=== PATIENT | female | born 1965 | race Caucasian/White ===

== ENCOUNTER 2021-01-16 14:18 | Outpatient (REF) | payer OTHER, SELFPAY ==
--- NOTE | ~2021-01-16 | XR_ITS ---
EXAMINATION: XR HIP, LEFT CLINICAL INFORMATION: Pain. COMPARISON: None TECHNIQUE: Two views of the left hip. FINDINGS: Bone alignment is normal. No fracture or dislocation is seen. The joint space is normal. There is proliferative bone reaction adjacent to the left greater trochanter and iliac crest. Soft tissues are otherwise unremarkable. XR/XR hip LT min 2V IMPRESSION: Enthesopathy adjacent to the left greater trochanter and iliac crest. Otherwise unremarkable exam.
[2021-01-16 16:21] LABS: Appearance Urine CLEAR; Color Urine YELLOW; Glucose Urine UA NEG (NEG); Leukocyte Esterase Urine NEG (NEG); Nitrite Urine NEG (NEG); Urine Blood NEG (NEG); Urine Ketones NEG (NEG); Urine Protein NEG (NEG-TRACE)
[2021-01-16 16:43] LABS: Alanine Aminotransferase 19 U/L (0-31); Albumin Level 4.3 g/dL (3.5-5.0); Alkaline Phosphatase 78 U/L (39-117); Anion Gap 15 (12-20); Aspartate Amino Transferase 22 U/L (5-31); Bilirubin Total 0.2 mg/dL (0.0-1.0); Blood Urea Nitrogen 15 mg/dL (9-16); Calcium 9.4 mg/dL (8.4-10.2); Carbon Dioxide 27 mmol/L (22-29); Chloride 105 mmol/L (96-108); Cholesterol 250 mg/dL; Estimated Glomerular Filt Rate > 60; Glucose Fasting 81 mg/dL (60-99); HDL Cholesterol 54 mg/dL; LDL Cholesterol Calculated 174 mg/dl; Potassium 4.7 mmol/L (3.3-5.1); Sodium 142 mmol/L (135-145); Total Protein 6.8 g/dL (6.5-8.0); Triglycerides 110 mg/dL
== END 2021-01-16 14:19 | disposition home or self-care (01) ==
LOC: HO.HMGCX 14:18
PROVIDERS: PCP Internal Medicine; Visit Provider Nurse Practitioner Family
DX: M25.552 Pain in left hip (principal); F41.8 Other specified anxiety disorders
CPT/HCPCS: 36415; 73502; 80053; 80061; 81003; 84443

== ENCOUNTER 2022-03-20 14:17 | Outpatient (REF) | payer OTHER, SELFPAY ==
--- NOTE | ~2022-03-20 | XR_ITS ---
EXAMINATION: XR BILATERAL HIPS WITH AP PELVIS CLINICAL INFORMATION: Pain. COMPARISON: None TECHNIQUE: AP view of the pelvis and single views of each hip were obtained. FINDINGS: The bones and soft tissues are normal. No fracture. Sacroiliac and hip joints are normal. Pubic symphysis is normal. No abnormal soft tissue calcifications. XR/XR hips CHON min 3V IMPRESSION: Normal pelvis and bilateral hips.
[2022-03-20 16:51] LABS: Appearance Urine Clear; Color Urine Yellow; Glucose Urine UA Negative (Negative); Leukocyte Esterase Urine Negative (Negative); Nitrite Urine Negative (Negative); PH 5.5 (5.0-9.0); Urine Blood Negative (Negative); Urine Ketones Negative (Negative); Urine Protein Negative (Neg-Trace)
[2022-03-20 16:51] LABS: MANUAL DIFF FLAG NO
[2022-03-20 16:57] LABS: Basophils Absolute Auto 0.1 X10*3/uL (0.0-0.2); Basophils Percent Auto 0.5 % (0-2); Eosinophils Absolute Auto 0.5 X10*3/uL (0.0-0.4); Eosinophils Percent Auto 3.9 % (0-4); Hematocrit 45.8 % (37.0-47.0); Hemoglobin 14.9 g/dl (12.0-16.0); Imm Gran Abs Auto 0.24 X10*3/uL (0.00-0.03); Imm Gran Pct Auto 1.9 % (0.0-0.4); Lymphocytes Percent Auto 30.7 % (20-40); Mean Corpuscular HGB Conc 32.5 g/dl (31.0-35.0); Mean Corpuscular Hemoglobin 31.1 pg (27.0-33.0); Mean Corpuscular Volume 95.6 fL (80.0-98.0); Mean Platelet Volume 9.1 fL (9.4-12.3); Monocytes Absolute Auto 0.9 X10*3/uL (0.1-1.2); Monocytes Percent Auto 7.3 % (2-11); Neutrophils Absolute Auto 7.2 x10*3/uL (2.0-8.3); Neutrophils Percent Auto 55.7 % (45-73); Platelet Count 349 X10*3/uL (160-400); Red Blood Count 4.79 X10*6/uL (4.20-5.50); Red Cell Distribution Width 13.8 % (11.0-16.0)
[2022-03-20 18:06] LABS: Alanine Aminotransferase 22 U/L (0-31); Alkaline Phosphatase 66 U/L (39-117); Anion Gap 11 (12-20); Aspartate Amino Transferase 18 U/L (5-31); Bilirubin Total 0.3 mg/dL (0.0-1.0); Blood Urea Nitrogen 8 mg/dL (9-16); Calcium 8.9 mg/dL (8.4-10.2); Carbon Dioxide 34 mmol/L (22-29); Chloride 97 mmol/L (96-108); Estimated Glomerular Filt Rate > 60; Glucose Random 81 mg/dL (60-115); Potassium 4.5 mmol/L (3.3-5.1); Sodium 137 mmol/L (135-145); Total Protein 5.9 g/dL (6.5-8.0)
== END 2022-03-20 14:18 | disposition home or self-care (01) ==
LOC: HO.HMGCX 14:17
PROVIDERS: PCP Nurse Practitioner Family; Visit Provider Nurse Practitioner Family
DX: R32 Unspecified urinary incontinence (principal); M25.551 Pain in right hip; M25.552 Pain in left hip
CPT/HCPCS: 36415; 73522; 80053; 81003; 84443; 85025

== ENCOUNTER 2022-04-02 10:00 | Outpatient (RCR) | payer OTHER, SELFPAY ==
--- NOTE | 2022-03-23 13:12 | MHC.PT.EP ---
[facility] [place] Office [place] Office [place] Office [address] [phone] F: [phone] F: [phone] F: [phone] F: [phone] Physical Therapy Plan of Care Date of Evaluation: Date of Surgery: none Diagnosis: Pain in L hip Assessment: Patient is a 56 year old R handed female who presents with s/s consistent with pain. 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 Patient past medical history is fairly unremarkable by pt report. Current impairments include pain, posture, ROM, strength, flexibility, gait mechanics, activity tolerance and functional mobility. Functional limitations include decreased ability to stand, walk, lift, push and pull. Patient is motivated with good rehab potential. Skilled PT will address impairments and functional limitations in order to achieve goals. Frequency and Duration: The patient will be seen 2x/week for 5 weeks Short Term Goals: I with HEP - 2 weeks symmetrical innom - 3 weeks 90/90 symmetrical and less than 20 b/l - 3 weeks Guest Relations Representative Goals: Lefs 54/80 - 5 weeks Able to work full shift without increased pain - 5 weeks Symmetrical gait - 5 weeks Hip strength and knee strength 4/5 grossly - 5 weeks Maintains symmetrical innom - 5 weeks Treatment Plan: Modalities to reduce pain, spasms and effusion. Manual therapy to restore motion and function. Therapeutic exercise to improve strength and flexibility. Neuromuscular re-education for posture and balance. Therapeutic activities to return to functional activities of daily living. Electronically signed by: Rodriguez Pacheco, PT Please sign and return to therapist. Thank you for your referral.
--- NOTE | 2022-06-19 08:33 | MHC.PT.DC ---
[facility] [place] [facility] [place] [facility] [place] [facility] [address] Bella [place] [address] [phone] F: [phone] F: [phone] F: [phone] F: [phone] Physical Therapy Discharge Report Diagnosis: Pain in L hip Date of Surgery: none Date of Evaluation: 03/23/22 Date of Discharge: 05/10/22 Treatments to Date: 4 Cancellations to Date: No Shows to Date: Discharge Status: Independent with HEP Discharge Summary: She does have an updated PT and she elected on hold on further PT at this time. 04/02/22: improved activity tolerance and less pain. continue to progress as tolerated. updated HEP. 03/30/22: pt has been feeling better the last few days. held on table ex today. we will contineu to progress with stretching and standing activities. 03/26/22: pt with lower positional and activity tolerance. we did add to HEP ex in seated position which she tolerated best. we did edu on symmetry and asymmetrical habits. Patient is a 56 year old R handed female who presents with s/s consistent with pain. 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 Patient past medical history is fairly unremarkable by pt report. Current impairments include pain, posture, ROM, strength, flexibility, gait mechanics, activity tolerance and functional mobility. Functional limitations include decreased ability to stand, walk, lift, push and pull. Patient is motivated with good rehab potential. Skilled PT will address impairments and functional limitations in order to achieve goals. Electronically signed by: Rodriguez Pacheco, PT Please sign and return to therapist. Thank you for your referral.
== END 2022-06-19 08:34 | disposition home or self-care (01) ==
LOC: HO.PTCHIC 10:00
PROVIDERS: PCP Nurse Practitioner Family; Visit Provider Nurse Practitioner Family
DX: M25.552 Pain in left hip (principal)
CPT/HCPCS: 97110; 97140; 97162

== ENCOUNTER 2022-04-11 22:33 | Inpatient (IN) | payer OTHER, SELFPAY ==
--- NOTE | ~2022-04-11 | XR_ITS ---
EXAMINATION: XR CHEST CLINICAL INFORMATION: Weakness and cough. Shortness of breath. COMPARISON: CT chest 05/27/2016 TECHNIQUE: Frontal view of the chest was obtained. 11:39 PM FINDINGS: No significant abnormality is noted involving the heart, lungs, mediastinum, bony thorax or soft tissues. XR/XR chest 1V IMPRESSION: Unremarkable examination.
[2022-04-11 22:44] VITALS: BP 119/67; BP 128/72; PULSE 101; PULSE 99; RESP 22; TEMP 37.3; O2SAT 92; O2SAT 94; BMI 34.9
--- NOTE | 2022-04-11 22:50 | ED.GENADULT ---
HPI - General Adult General Chief complaint: General Medical Stated complaint: weakness/sob Time Seen by Provider: 04/11/22 22:42 Source: patient and EMS Mode of arrival: EMS Limitations: no limitations History of Present Illness HPI narrative: 56-year-old female who presents emergency department for evaluation of feeling sick for 2 days. Patient has multiple complaints including headache which came on gradually, located throughout her entire head, pain is a pressure-like pain which is 8/10 at its worst patient had no fever but did have shaking chills. She has had rhinorrhea sore throat. She has had a cough which is nonproductive. She denied chest pain but feels short of breath and has dyspnea on exertion she has nausea with no vomiting. She denied diarrhea. She complains of weakness, fatigue, myalgias and arthralgias. EMS was an independent source of history. Paramedics report that the patient appeared to be short of breath with a respiratory rate of 22 and an O2 saturation of 90% on room air. Paramedics gave the patient a DuoNeb EN route to the hospital. External notes review: Primary care visit 02/11/2022 and 03/11/2022: Patient has chronic back pain , left hip pain and left leg pain. Patient is on Suboxone daily and gabapentin. Patient states she received 2 Moderna COVID-19 vaccines. She did not receive a flu vaccine. She took a COVID-19 home test which was negative. Related Data Home Medications Medication Instructions Recorded Confirmed buprenorphine 4 mg-naloxone 1 mg 1 film sublingual DAILY 10/30/20 04/12/22 sublingual film (Suboxone) buprenorphine 2 mg-naloxone 0.5 mg 1 strip sublingual DAILY 04/12/22 04/12/22 sublingual film ibuprofen 200 mg tablet 400 mg PO Q8H PRN hip and leg pain 04/12/22 04/12/22 Previous Rx's Medication Instructions Recorded venlafaxine 150 mg 150 mg PO BID #60 caps 01/26/22 capsule,extended release 24 hr gabapentin 300 mg capsule 600 mg PO TID 30 days #180 caps 02/11/22 clonidine HCl 0.1 mg tablet 0.1 mg PO BID #60 tabs 03/30/22 Allergies Allergy/AdvReac Type Severity Reaction Status Date / Time omeprazole [From PRILOSEC] Allergy Severe ANAPHYLAXIS Verified 03/11/22 10:12 lansoprazole [Prevacid] Allergy Unknown anaphylaxis Verified 03/11/22 10:12 Review of Systems Review of Systems: Yes all other systems are reviewed and are negative [facility] Past Medical History [facility] Narrative: Past medical history: Chronic back pain, left hip pain and left lower extremity pain. Social history: She smokes 1-1/2 pack of cigarettes per day times 20 years. She denies alcohol use. She denies drug use. Medical History Anxiety associated with depression Bilateral hip pain Dyslipidemia Left hip pain Lower back pain Somatic dysfunction of left sacroiliac joint Urinary incontinence Social History Social History Household Members: Spouse and Friend(s) Housing: House Do you presently have visiting nurse or other home services: No Alcohol intake: current Alcohol intake frequency: holidays/special occasions only Patient Tobacco Use Status: Current everyday Tobacco user Tobacco use type: Cigarette Cigarette Packs Per Day: 1 Cigarettes Per Day: 20.0 Smoked in Last 30 Days: Yes e-Cigarette/Vaping Use: Never Used Patient Interested in Nicotine Replacement: No Second Hand Smoke Exposure: No Use of substances other than those prescribed or required for medical reasons: Yes Substance Use Type: Heroin Have you been hit, kicked, punched, or otherwise hurt by someone within the past year? If so, by whom?: No Do you feel safe in your current relationship?: No Is there a partner from a previous relationship who is making you feel unsafe now?: No Advance Directives: No Advance Directives Information Provided: No Do you have thoughts of harming others: None Do you have a plan to hurt others: No Plan Recently lost weight without trying: No Nutrition Risks: No Nutritional Risk Patient : No : No Poor oral hygiene: No service: No Current occupational status: employed Current occupation: [employer] Cognitive needs: No Hearing needs: No Vision needs: No Physical Exam ED Vital Signs: Vital Signs - 24 hr 04/11/22 22:44 04/12/22 01:20 04/12/22 02:28 Temperature 99.2 F 99.7 F 99.1 F Pulse Rate 101 H 101 H 99 Respiratory Rate 22 H 12 12 Blood Pressure 119/67 108/66 121/69 Pulse Oximetry 94 95 97 Oxygen Delivery Method Room Air Nasal Cannula Nasal Cannula Oxygen Flow Rate 2 2 04/12/22 03:01 04/12/22 04:34 04/12/22 05:41 Temperature 99.1 F 99.1 F 98.0 F Pulse Rate 93 96 94 Respiratory Rate 12 15 18 Blood Pressure 101/59 L 125/81 Pulse Oximetry 96 96 95 Oxygen Delivery Method Nasal Cannula with ETCO2 Nasal Cannula Nasal Cannula with ETCO2 Oxygen Flow Rate 2 2 2 04/12/22 06:02 04/12/22 06:05 04/12/22 06:12 Temperature Pulse Rate Respiratory Rate Blood Pressure Pulse Oximetry 89 L 95 98 Oxygen Delivery Method Room Air Nasal Cannula with ETCO2 Nasal Cannula Oxygen Flow Rate 2 2 04/12/22 08:25 04/12/22 11:28 Temperature 98.1 F 98.0 F Pulse Rate 90 85 Respiratory Rate 18 16 Blood Pressure 137/80 121/76 Pulse Oximetry 96 97 Oxygen Delivery Method Nasal Cannula Nasal Cannula Oxygen Flow Rate 2 2 BMI result Body Mass Index 34.9 Reviewed: Low grade oral temperature 99.2 degrees, elevated heart rate 101, elevated respiratory rate 22. normal O2 saturation on room air 94% Const Other: Patient appears weak, she answers questions appropriately, she does not appear to be in distress Orientation/consciousness: oriented to person and oriented to place [facility] Head: Yes normal to inspection, Yes normocephalic and Yes atraumatic Ears: external ears normal General nose exam: Normal external nose present Face and sinus: Yes normal facial exam Mouth: Normal oral and palatal mucosa present Throat: Yes posterior oropharynx normal Eyes General: appearance normal, both eyes and all related structures Pupils: Equal, round and reactive pupils present Neck Neck: Yes normal visual inspection, Yes no lymphadenopathy, Yes trachea midline and Yes supple Chest Chest palpation & inspection: normal inspection of the chest and normal palpation of entire chest wall Resp Effort & Inspection: normal respiratory effort and able to speak in complete sentences Auscultation: clear to auscultation bilaterally Cardio Rate: regular rate Rhythm: regular rhythm Heart sounds: S1 normal heart sound present, S2 normal heart sound present and no murmurs GI Inspection: Yes normal to inspection Palpation (GI): Soft to palpation, nontender and no guarding Auscultation: normal bowel sounds General: Yes no CVA tenderness Back/Spine/Pelvis Back: no CVA tenderness Skin General skin exam: no rashes or lesions noted Neuro General: oriented to person and oriented to place Cranial nerves: Yes CN's II-XII intact bilaterally and Yes Equal, round and reactive pupils present Cognition (Neuro): normal cognition Motor exam (neuro): 5/5 motor strength present throughout Extrem General: Yes normal to inspection Psych Appearance: grossly normal Mental Status: mental status grossly normal Speech and movement: Normal speech and movement present Affect: normal affect Medications Administered Generic Name Dose Route Start Last Admin Trade Name Freq PRN Reason Stop Dose Admin Acetaminophen 650 mg 04/12/22 03:58 04/12/22 22:27 Acetaminophen 325 Mg Tablet PO 650 mg Q6H PRN Administration Pain, Mild (Pain Scale 1-3) Albuterol/Ipratropium 3 ml 04/12/22 21:17 04/12/22 21:46 Albuterol/Iprat 2.5/0.5mg 3 Ml Ampul.Neb INHALE 3 ml Q4H PRN Administration Shortness of Breath/Wheezing Buprenorphine/Naloxone 1 film 04/12/22 10:57 04/12/22 11:28 Buprenorphine/Naloxone 2/0.5mg Film SUBLINGUAL 1 film DAILY PER Administration Buprenorphine/Naloxone 1 film 04/12/22 11:00 04/12/22 11:28 Buprenorphine/Naloxone 4/1 Mg Film SUBLINGUAL 1 film DAILY PER Administration Clonidine HCl 0.1 mg 04/12/22 21:00 04/12/22 20:33 Clonidine Hcl 0.1 Mg Tablet PO 0.1 mg BID PER Administration Protocol Enoxaparin Sodium 40 mg 04/12/22 06:00 04/12/22 05:45 Enoxaparin Sodium 40 Mg/0.4 Ml Syringe SUBCUT 40 mg Q24H PER Administration Gabapentin 600 mg 04/12/22 15:00 04/12/22 20:33 Gabapentin 300 Mg Capsule PO 600 mg TID PER Administration Guaifenesin 600 mg 04/12/22 21:17 04/12/22 21:49 Guaifenesin La 600 Mg Tab.Er.12h PO 600 mg BID PRN Administration cough Lactated Ringer's 1,000 mls @ 100 mls/hr 04/12/22 04:15 04/12/22 20:40 Lr IVCONT Infused .Q10H PER Infusion Metoprolol Succinate 25 mg 04/12/22 11:50 04/12/22 12:05 Metoprolol Succinate Er 25 Mg Tab.Er.24h PO 25 mg DAILY PER Administration Protocol Oseltamivir Phosphate 75 mg 04/12/22 06:00 04/12/22 20:33 Oseltamivir Phosphate 75 Mg Capsule PO 04/16/22 09:01 75 mg BID PER Administration Sodium Chloride 3 ml 04/12/22 08:00 04/12/22 20:37 0.9 % Sodium Chloride Flush 3 Ml Syringe IVFLUSH 3 ml QSHIFT PER Administration Venlafaxine HCl 150 mg 04/12/22 21:00 04/12/22 20:33 Venlafaxine Hcl Er 150 Mg Cap.Er.24h PO 150 mg BID PER Administration Discontinued Medications Generic Name Dose Route Start Last Admin Trade Name Freq PRN Reason Stop Dose Admin Sodium Chloride 1,000 mls @ 999 mls/hr 04/11/22 23:00 04/11/22 23:55 Ns IV 04/12/22 00:00 Infused .Q1H1M PER Infusion Sodium Chloride 1,000 mls @ 999 mls/hr 04/11/22 22:50 04/11/22 23:44 Ns IV 04/11/22 23:50 Not Given .Q1H1M STA Lactated Ringer's 1,000 mls @ 999 mls/hr 04/12/22 02:30 04/12/22 03:37 Lr IV 04/12/22 03:30 Infused .Q1H1M PER Infusion Ibuprofen 600 mg 04/12/22 03:22 04/12/22 03:46 Ibuprofen 600 Mg Tablet PO 04/12/22 03:23 600 mg ONCE STA Administration Ibuprofen 400 mg 04/12/22 09:12 04/12/22 09:18 Ibuprofen 400 Mg Tablet PO 04/12/22 09:13 400 mg ONCE ONE Administration Influenza Virus Vaccine 0.5 ml 04/12/22 18:19 04/12/22 18:21 Flu Vacc [id number](6mos Up)/Pf 0.5 Ml Syringe IM 04/12/22 18:20 Not Given .ONCE ONE Ketorolac Tromethamine 15 mg 04/11/22 22:50 04/11/22 23:44 Ketorolac Tromethamine 15 Mg/Ml Vial IVPUSH 04/11/22 22:51 15 mg ONCE STA Administration Ondansetron HCl 4 mg 04/11/22 22:50 04/11/22 23:44 Ondansetron Hcl 4 Mg/2 Ml Vial IVPUSH 04/11/22 22:51 4 mg ONCE ONE Administration Ondansetron HCl 4 mg 04/12/22 03:22 04/12/22 03:46 Ondansetron Hcl 4 Mg/2 Ml Vial IVPUSH 04/12/22 03:23 4 mg ONCE ONE Administration Medical Decision Making Medical Decision Making [facility] Narrative: 56-year-old female with history of chronic back pain headache, left hip and left leg pain presents emergency department for 2 days of viral-like syndrome with symptoms including headache, chills, rhinorrhea, sore throat, nonproductive cough, shortness of breath, dyspnea on exertion, nausea without vomiting, weakness, fatigue, myalgias and arthralgias. Vital signs did reveal elevated heart rate of 101, elevated respiratory rate of 22, no documented fever and normal O2 saturation of 94% on room air. Patient does appear to be weak but otherwise her exam is nonfocal, lungs were clear. I ordered a CBC, CMP, troponin, PTT, PT/INR, lactic acid, lipase, blood cultures x2. COVID-19, flu, RSV, chest x-ray. I ordered normal saline x1 L, Toradol 30 mg IV and Zofran 4 mg IV. 0041: Patient's laboratory evaluation is concerning since the patient is influenza A positive, mild elevation of her AST, ALT and alk-phos, significant elevation of her high sensitive troponin I of 308 and chest x-ray revealed no pneumonia. Concerned the patient may have acute myocardial infarction verses myositis/myocarditis/pericarditis. I added a CPK, CRP and ESR. I will repeat a 3 hour troponin and discuss these findings with our covering telephoto engineer. 0315: Patient's repeat troponin did not increased by more than 50%. I did discuss this patient's presentation over tiger text with the covering telephoto engineer, Dr. Mcgovern. He suspects that the patient's elevated troponins could be secondary to myocarditis or general inflammatory reaction. He recommended that the patient be admitted for supportive care, he recommended against heparin an aspirin. He would like the patient to get an echocardiogram in the morning. I did discuss over tiger text, the patient's presentation with the covering copy chief, Dr. Johnston Differential Diagnosis Pneumonia, COVID-19, influenza, RSV, viral syndrome, anemia, NH, dehydration, myocarditis, pericarditis Lab Data MDM Lab Attestation statement: I reviewed the patient's lab results. 0036: My independent interpretation of the labs are as follows: CBC was normal. PT/INR were normal. PTT normal. AST, ALT and alk-phos were elevated at 66, 118 and 149. High sensitivity troponin I was elevated at 308. Influenza a is positive. RSV and COVID-19 were negative. 0315: Patient's repeat troponin was 452 which was less than a 50% change from the 1st troponin. ESR was normal at 16. CRP elevated 20.26. Result Diagrams: 04/11/22 23:34 04/12/22 04:40 Labs: Lab Results 04/11/22 04/11/22 04/11/22 Range/Units 23:34 23:34 23:34 WBC 10.0 (4.8-10.8) X10*3/uL RBC 4.71 (4.20-5.50) X10*6/uL Hgb 14.6 (12.0-16.0) g/dl Hct 43.7 (37.0-47.0) % MCV 92.8 (80.0-98.0) fL MCH 31.0 (27.0-33.0) pg MCHC 33.4 (31.0-35.0) g/dl RDW 14.1 (11.0-16.0) % Plt Count 188 D (160-400) X10*3/uL MPV 9.1 L (9.4-12.3) fL Immature Gran % (Auto) 0.4 (0.0-0.4) % Neut % (Auto) 85.4 H (45-73) % Lymph % (Auto) 6.2 L (20-40) % [place] % (Auto) 7.6 (2-11) % Eos % (Auto) 0.2 (0-4) % Baso % (Auto) 0.2 (0-2) % Lymph # (Auto) 0.6 L (1.2-4.9) X10*3/uL [place] # (Auto) 0.8 (0.1-1.2) X10*3/uL Eos # (Auto) 0.0 (0.0-0.4) X10*3/uL Baso # (Auto) 0.0 (0.0-0.2) X10*3/uL Abs Immat Gran (auto) 0.04 H (0.00-0.03) X10*3/uL Absolute Neuts (auto) 8.5 H (2.0-8.3) x10*3/uL Absolute Nucleated RBC 0.000 (0.0-0.012) X10*3/uL Nucleated RBC % (auto) 0.0 (0.0-0.2) /100WBC ESR (0-20) MM/HR PT 11.8 (10.0-13.1) SEC INR 1.0 (0.9-1.1) APTT 35.6 (26.0-36.4) SEC Sodium 138 (135-145) mmol/L Potassium 3.9 (3.3-5.1) mmol/L Chloride 101 (96-108) mmol/L Carbon Dioxide 26 (22-29) mmol/L Anion Gap 15 (12-20) BUN 12 (9-16) mg/dL Creatinine 0.54 (0.5-1.4) mg/dL Estim Creat Clear Calc 147.0 Estimated GFR > 60 Random Glucose 68 (60-115) mg/dL Lactic Acid (0.5-2.0) mmol/L Calcium 8.2 L D (8.4-10.2) mg/dL Total Bilirubin 0.7 (0.0-1.0) mg/dL AST 66 H (5-31) U/L ALT 118 H (0-31) U/L Alkaline Phosphatase 149 H D (39-117) U/L Total Creatine Kinase 142 H (26-140) U/L Troponin I High Sens (<3.5-17.0) ng/L C-Reactive Protein 20.26 H (< or = 0.50) mg/dL Total Protein 5.3 L D (6.5-8.0) g/dL Albumin 3.4 L D (3.5-5.0) g/dL Lipase < 4 L (8-78) U/L Urine Color Urine Appearance Urine pH (5.0-9.0) Ur Specific [place] (1.005-1.025) Urine Protein (Neg-Trace) mg/dL Urine Glucose (UA) (Negative) mg/dL Urine Ketones (Negative) mg/dL Urine Blood (Negative) Urine Nitrite (Negative) Ur Leukocyte Esterase (Negative) Influenza Type A (PCR) (Negative) Influenza Type B (PCR) (Negative) RSV RNA Qual (PCR) (Negative) SARS-CoV-2 RNA (RT-PCR) (Negative) 04/11/22 04/11/22 04/11/22 Range/Units 23:34 23:34 23:34 WBC (4.8-10.8) X10*3/uL RBC (4.20-5.50) X10*6/uL Hgb (12.0-16.0) g/dl Hct (37.0-47.0) % MCV (80.0-98.0) fL MCH (27.0-33.0) pg MCHC (31.0-35.0) g/dl RDW (11.0-16.0) % Plt Count (160-400) X10*3/uL MPV (9.4-12.3) fL Immature Gran % (Auto) (0.0-0.4) % Neut % (Auto) (45-73) % Lymph % (Auto) (20-40) % [place] % (Auto) (2-11) % Eos % (Auto) (0-4) % Baso % (Auto) (0-2) % Lymph # (Auto) (1.2-4.9) X10*3/uL [place] # (Auto) (0.1-1.2) X10*3/uL Eos # (Auto) (0.0-0.4) X10*3/uL Baso # (Auto) (0.0-0.2) X10*3/uL Abs Immat Gran (auto) (0.00-0.03) X10*3/uL Absolute Neuts (auto) (2.0-8.3) x10*3/uL Absolute Nucleated RBC (0.0-0.012) X10*3/uL Nucleated RBC % (auto) (0.0-0.2) /100WBC ESR (0-20) MM/HR PT (10.0-13.1) SEC INR (0.9-1.1) APTT (26.0-36.4) SEC Sodium (135-145) mmol/L Potassium (3.3-5.1) mmol/L Chloride (96-108) mmol/L Carbon Dioxide (22-29) mmol/L Anion Gap (12-20) BUN (9-16) mg/dL Creatinine (0.5-1.4) mg/dL Estim Creat Clear Calc Estimated GFR Random Glucose (60-115) mg/dL Lactic Acid 0.8 (0.5-2.0) mmol/L Calcium (8.4-10.2) mg/dL Total Bilirubin (0.0-1.0) mg/dL AST (5-31) U/L ALT (0-31) U/L Alkaline Phosphatase (39-117) U/L Total Creatine Kinase (26-140) U/L Troponin I High Sens 308.0 H* (<3.5-17.0) ng/L C-Reactive Protein (< or = 0.50) mg/dL Total Protein (6.5-8.0) g/dL Albumin (3.5-5.0) g/dL Lipase (8-78) U/L Urine Color Urine Appearance Urine pH (5.0-9.0) Ur Specific [place] (1.005-1.025) Urine Protein (Neg-Trace) mg/dL Urine Glucose (UA) (Negative) mg/dL Urine Ketones (Negative) mg/dL Urine Blood (Negative) Urine Nitrite (Negative) Ur Leukocyte Esterase (Negative) Influenza Type A (PCR) POSITIVE A (Negative) Influenza Type B (PCR) NEGATIVE (Negative) RSV RNA Qual (PCR) NEGATIVE (Negative) SARS-CoV-2 RNA (RT-PCR) NEGATIVE (Negative) 04/11/22 04/12/22 04/12/22 Range/Units 23:34 02:27 04:40 WBC (4.8-10.8) X10*3/uL RBC (4.20-5.50) X10*6/uL Hgb (12.0-16.0) g/dl Hct (37.0-47.0) % MCV (80.0-98.0) fL MCH (27.0-33.0) pg MCHC (31.0-35.0) g/dl RDW (11.0-16.0) % Plt Count (160-400) X10*3/uL MPV (9.4-12.3) fL Immature Gran % (Auto) (0.0-0.4) % Neut % (Auto) (45-73) % Lymph % (Auto) (20-40) % [place] % (Auto) (2-11) % Eos % (Auto) (0-4) % Baso % (Auto) (0-2) % Lymph # (Auto) (1.2-4.9) X10*3/uL [place] # (Auto) (0.1-1.2) X10*3/uL Eos # (Auto) (0.0-0.4) X10*3/uL Baso # (Auto) (0.0-0.2) X10*3/uL Abs Immat Gran (auto) (0.00-0.03) X10*3/uL Absolute Neuts (auto) (2.0-8.3) x10*3/uL Absolute Nucleated RBC (0.0-0.012) X10*3/uL Nucleated RBC % (auto) (0.0-0.2) /100WBC ESR 16 (0-20) MM/HR PT (10.0-13.1) SEC INR (0.9-1.1) APTT (26.0-36.4) SEC Sodium (135-145) mmol/L Potassium (3.3-5.1) mmol/L Chloride (96-108) mmol/L Carbon Dioxide (22-29) mmol/L Anion Gap (12-20) BUN (9-16) mg/dL Creatinine (0.5-1.4) mg/dL Estim Creat Clear Calc Estimated GFR Random Glucose (60-115) mg/dL Lactic Acid (0.5-2.0) mmol/L Calcium (8.4-10.2) mg/dL Total Bilirubin (0.0-1.0) mg/dL AST (5-31) U/L ALT (0-31) U/L Alkaline Phosphatase (39-117) U/L Total Creatine Kinase (26-140) U/L Troponin I High Sens 452.1 H* 430.2 H* (<3.5-17.0) ng/L C-Reactive Protein (< or = 0.50) mg/dL Total Protein (6.5-8.0) g/dL Albumin (3.5-5.0) g/dL Lipase (8-78) U/L Urine Color Urine Appearance Urine pH (5.0-9.0) Ur Specific [place] (1.005-1.025) Urine Protein (Neg-Trace) mg/dL Urine Glucose (UA) (Negative) mg/dL Urine Ketones (Negative) mg/dL Urine Blood (Negative) Urine Nitrite (Negative) Ur Leukocyte Esterase (Negative) Influenza Type A (PCR) (Negative) Influenza Type B (PCR) (Negative) RSV RNA Qual (PCR) (Negative) SARS-CoV-2 RNA (RT-PCR) (Negative) 04/12/22 04/12/22 Range/Units 04:40 08:30 WBC (4.8-10.8) X10*3/uL RBC (4.20-5.50) X10*6/uL Hgb (12.0-16.0) g/dl Hct (37.0-47.0) % MCV (80.0-98.0) fL MCH (27.0-33.0) pg MCHC (31.0-35.0) g/dl RDW (11.0-16.0) % Plt Count (160-400) X10*3/uL MPV (9.4-12.3) fL Immature Gran % (Auto) (0.0-0.4) % Neut % (Auto) (45-73) % Lymph % (Auto) (20-40) % [place] % (Auto) (2-11) % Eos % (Auto) (0-4) % Baso % (Auto) (0-2) % Lymph # (Auto) (1.2-4.9) X10*3/uL [place] # (Auto) (0.1-1.2) X10*3/uL Eos # (Auto) (0.0-0.4) X10*3/uL Baso # (Auto) (0.0-0.2) X10*3/uL Abs Immat Gran (auto) (0.00-0.03) X10*3/uL Absolute Neuts (auto) (2.0-8.3) x10*3/uL Absolute Nucleated RBC (0.0-0.012) X10*3/uL Nucleated RBC % (auto) (0.0-0.2) /100WBC ESR (0-20) MM/HR PT (10.0-13.1) SEC INR (0.9-1.1) APTT (26.0-36.4) SEC Sodium 139 (135-145) mmol/L Potassium 3.5 (3.3-5.1) mmol/L Chloride 106 (96-108) mmol/L Carbon Dioxide 25 (22-29) mmol/L Anion Gap 12 (12-20) BUN 12 (9-16) mg/dL Creatinine 0.48 L (0.5-1.4) mg/dL Estim Creat Clear Calc 165.4 Estimated GFR > 60 Random Glucose 78 (60-115) mg/dL Lactic Acid (0.5-2.0) mmol/L Calcium 7.8 L (8.4-10.2) mg/dL Total Bilirubin 0.4 (0.0-1.0) mg/dL AST 47 H (5-31) U/L ALT 94 H (0-31) U/L Alkaline Phosphatase 131 H (39-117) U/L Total Creatine Kinase (26-140) U/L Troponin I High Sens (<3.5-17.0) ng/L C-Reactive Protein (< or = 0.50) mg/dL Total Protein 4.5 L (6.5-8.0) g/dL Albumin 2.9 L (3.5-5.0) g/dL Lipase (8-78) U/L Urine Color Dark Yellow Urine Appearance Clear Urine pH 5.5 (5.0-9.0) Ur Specific [place] 1.025 (1.005-1.025) Urine Protein Trace (Neg-Trace) mg/dL Urine Glucose (UA) Negative (Negative) mg/dL Urine Ketones 80 (Negative) mg/dL Urine Blood Negative (Negative) Urine Nitrite Negative (Negative) Ur Leukocyte Esterase Negative (Negative) Influenza Type A (PCR) (Negative) Influenza Type B (PCR) (Negative) RSV RNA Qual (PCR) (Negative) SARS-CoV-2 RNA (RT-PCR) (Negative) Radiology Impression Radiologist Impression: My independent review of the chest x-ray is that there was no acute infiltrates. The radiologist impression was unremarkable examination and this was reviewed by me. Independent Historian Clinical information obtained from an independent historian. History obtained from or confirmed by: EMS External Record Review External record reviewed: Office record Critical Care Time Critical Care Time Critical Care Time: Yes Total Critical Care Time: 40 Attestation: Critical Care: The patient was critically ill with a high probability of imminent or life threatening deterioration. I spent greater than 30 minutes of discontinuous time evaluating the patient,delivering critical care at the bedside, discussing and evaluating pertinent data with consultants. Critical care time does not include time spent performing separately billable procedures or teaching. Total time spent performing critical care was 45 minutes. Discharge Plan Discharge Clinical Impression: Influenza A, Elevated troponin I level, Elevated LFTs Patient Disposition: Admitted As Inpatient Interventions: Admission Worksheet (ED) Last Done: 04/12/22 17:47 Discharge Date/Time: 04/12/22 17:48
--- NOTE | 2022-04-11 22:51 | ECG_ITS ---
Test Reason : CHEST PAIN Blood Pressure : / mmHG Vent. Rate : 099 BPM Atrial Rate : 099 BPM P-R Int : 148 ms QRS Dur : 068 ms QT Int : 330 ms P-R-T Axes : 073 060 051 degrees QTc Int : 423 ms Normal sinus rhythm Septal infarct , age undetermined Abnormal ECG When compared with ECG of 09-SEP-2006 16:22, Septal infarct is now Present Nonspecific T wave abnormality now evident in Anterior leads Referred By: Tito Padgett Electronically Signed By:PAOLA TOWNSEND MD
[2022-04-11] MEDS: 0.9 % Sodium Chloride 1,000 ML 999 ML IV (22:52)
[2022-04-11] MEDS: Ketorolac Tromethamine 15 MG/ML VIAL IVPUSH (23:44)
[2022-04-11] MEDS: ondansetron HCL 4 MG/2 ML VIAL IVPUSH (23:44)
[2022-04-11 23:45] LABS: Basophils Percent Auto 0.2 % (0-2); Eosinophils Percent Auto 0.2 % (0-4); Hematocrit 43.7 % (37.0-47.0); Hemoglobin 14.6 g/dl (12.0-16.0); Imm Gran Abs Auto 0.04 X10*3/uL (0.00-0.03); Imm Gran Pct Auto 0.4 % (0.0-0.4); Lymphocytes Absolute Auto 0.6 X10*3/uL (1.2-4.9); Lymphocytes Percent Auto 6.2 % (20-40); Mean Corpuscular HGB Conc 33.4 g/dl (31.0-35.0); Mean Corpuscular Volume 92.8 fL (80.0-98.0); Mean Platelet Volume 9.1 fL (9.4-12.3); Monocytes Absolute Auto 0.8 X10*3/uL (0.1-1.2); Monocytes Percent Auto 7.6 % (2-11); Neutrophils Absolute Auto 8.5 x10*3/uL (2.0-8.3); Neutrophils Percent Auto 85.4 % (45-73); Platelet Count 188 X10*3/uL (160-400); Red Blood Count 4.71 X10*6/uL (4.20-5.50); Red Cell Distribution Width 14.1 % (11.0-16.0)
[2022-04-11 23:46] LABS: MANUAL DIFF FLAG NO
[2022-04-11 23:52] LABS: Prothrombin Time 11.8 SEC (10.0-13.1)
[2022-04-11 23:54] LABS: Partial Thromboplastin Time 35.6 SEC (26.0-36.4)
[2022-04-11 23:57] LABS: Lactic Acid 0.8 mmol/L (0.5-2.0)
[2022-04-12] VITALS (13 sets, daily range): BP systolic 101–137; BP diastolic 59–88; PULSE 75–101; RESP 12–20; TEMP 36.7–37.6; O2SAT 89–98; BMI 34.9
[2022-04-12 00:03] LABS: Alanine Aminotransferase 118 U/L (0-31); Albumin Level 3.4 g/dL (3.5-5.0); Alkaline Phosphatase 149 U/L (39-117); Anion Gap 15 (12-20); Aspartate Amino Transferase 66 U/L (5-31); Bilirubin Total 0.7 mg/dL (0.0-1.0); Blood Urea Nitrogen 12 mg/dL (9-16); Calcium 8.2 mg/dL (8.4-10.2); Carbon Dioxide 26 mmol/L (22-29); Chloride 101 mmol/L (96-108); Estimated Glomerular Filt Rate > 60; Glucose Random 68 mg/dL (60-115); Lipase < 4 U/L (8-78); Potassium 3.9 mmol/L (3.3-5.1); Sodium 138 mmol/L (135-145); Total Protein 5.3 g/dL (6.5-8.0)
[2022-04-12 00:28] LABS: Influenza A PCR POSITIVE (Negative); Influenza B PCR NEGATIVE (Negative); Resp Syncy Virus RNA Qual PCR NEGATIVE (Negative); SARS COV2 PCR INHOUSE NEGATIVE (Negative)
[2022-04-12 00:59] LABS: C Reactive Protein 20.26 mg/dL (< or = 0.50)
[2022-04-12 01:21] LABS: Erythrocyte Sedimentation Rate 16 MM/HR (0-20)
[2022-04-12] MEDS: Lactated Ringers 1,000 ML 999 ML IV (02:34)
[2022-04-12 03:03] LABS: Troponin-I High Sensitivity 452.1 ng/L (<3.5-17.0)
--- NOTE | 2022-04-12 03:03 | PC.NURSE ---
attempted to administer LR 1 liter bolus per Jun. RN noted IV site to LL arm not paten site discontinued. 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 Pt c/o 10/10 L hip burning sciatic pain, nausea and dizziness Temp 99.1 oral will notify Ed provider. pvc monitor NSR at this time.
[2022-04-12] MEDS: ondansetron HCL 4 MG/2 ML VIAL IVPUSH (03:46)
[2022-04-12] MEDS: Ibuprofen 600 MG TABLET PO (03:46)
[2022-04-12 05:11] LABS: Alanine Aminotransferase 94 U/L (0-31); Albumin Level 2.9 g/dL (3.5-5.0); Alkaline Phosphatase 131 U/L (39-117); Anion Gap 12 (12-20); Aspartate Amino Transferase 47 U/L (5-31); Bilirubin Total 0.4 mg/dL (0.0-1.0); Blood Urea Nitrogen 12 mg/dL (9-16); Calcium 7.8 mg/dL (8.4-10.2); Carbon Dioxide 25 mmol/L (22-29); Chloride 106 mmol/L (96-108); Creatinine Clr Calc Pharmacy 165.4; Estimated Glomerular Filt Rate > 60; Glucose Random 78 mg/dL (60-115); Potassium 3.5 mmol/L (3.3-5.1); Sodium 139 mmol/L (135-145); Total Protein 4.5 g/dL (6.5-8.0)
[2022-04-12 05:20] LABS: Troponin-I High Sensitivity 430.2 ng/L (<3.5-17.0)
[2022-04-12] MEDS: Oseltamivir Phosphate 75 MG CAPSULE PO ×3 (05:43→20:33)
[2022-04-12] MEDS: Enoxaparin Sodium 40 MG/0.4 ML SYRINGE SUBCUT (05:45)
[2022-04-12] MEDS: Lactated Ringers 1,000 ML 100 ML IVCONT (05:45)
--- NOTE | 2022-04-12 06:00 | PC.NURSE ---
Dr. Johnston at pt bedside request to remove pt from oxygen therapy. Pt destated to 89% on room air.
--- NOTE | 2022-04-12 06:07 | PC.NURSE ---
Pt placed back on supplemental oxygen, Pt is stating 98% 2 L via cannula. Pt CAOx4.
--- NOTE | 2022-04-12 06:45 | P.HPHOSP_ITS ---
History of Present Illness Date of Service: 04/12/22 Chief Complaint: feeling sick 56 yo F with pmhx of chronic pain, hyperlipidemia, and depression presents to the hospital with complaints of feeling sick, coughing, headache, chills, sore throat, nonproductive cough, shortness of breath, nausea vomiting as well as generalized body aches, rigors, and weakness for the past 2 days. Patient reports no recent sick contacts, denies any chest pain, no palpitations, no abdominal pain, no urinary symptoms and no lower extremity edema. On arrival to the ED patient found to have a heart rate of 101, on my exam pa mirna was on 2 L, satting 95%. I asked the nurse to turn off the oxygen to see if patient desatted so she did desat to 89% at rest. she was placed back on 2 L of oxygen satting 98%. Labs are significant for WBC count of 10, AST of 66, ALT of 118, alk-phos of 149, creatinine of 142, Troponin of 308, repeat 452, and a 3rd repeat of 430, CRP of 20, lipase less than 4, influenza a positive patient's EKG shows sinus rhythm, nonspecific T-wave abnormalities chest x-ray shows unremarkable exam patient's case was discussed with Cardiology, recommended admission for further management Review of Systems Review of Systems: Yes all other systems are reviewed and are negative [facility] Medical History Anxiety associated with depression Bilateral hip pain Dyslipidemia Left hip pain Lower back pain Somatic dysfunction of left sacroiliac joint Urinary incontinence Social History Alcohol intake: current Alcohol intake frequency: holidays/special occasions only Patient Tobacco Use Status: Never used Tobacco Cigarette Packs Per Day: 1 Cigarettes Per Day: 20 Smoked in Last 30 Days: Yes e-Cigarette/Vaping Use: Never Used Second Hand Smoke Exposure: No Use of substances other than those prescribed or required for medical reasons: Yes Substance Use Type: Heroin Advance Directives: No Advance Directives Information Provided: No Patient : No service: No Current occupational status: employed Current occupation: [employer] Cognitive needs: No Hearing needs: No Vision needs: No Meds Allergies Allergy/AdvReac Type Severity Reaction Status Date / Time omeprazole [From PRILOSEC] Allergy Severe ANAPHYLAXIS Verified 03/11/22 10:12 lansoprazole [Prevacid] Allergy Unknown anaphylaxis Verified 03/11/22 10:12 Active Medications: Current Medications Acetaminophen (Acetaminophen 325 Mg Tablet) 650 mg PO Q6H PRN PRN Reason: Pain, Mild (Pain Scale 1-3) Enoxaparin Sodium (Enoxaparin Sodium 40 Mg/0.4 Ml Syringe) 40 mg SUBCUT Q24H [facility] Last Admin: 04/12/22 05:45 Dose: 40 mg Lactated Ringer's (Lr) 1,000 mls @ 100 mls/hr IVCONT .Q10H [facility] Last Admin: 04/12/22 05:45 Dose: 100 mls/hr Ondansetron HCl (Ondansetron Hcl 4 Mg/2 Ml Vial) 4 mg IVPUSH Q8H PRN PRN Reason: Nausea and Vomiting Oseltamivir Phosphate (Oseltamivir Phosphate 75 Mg Capsule) 75 mg PO BID [facility] Stop: 04/16/22 09:01 Last Admin: 04/12/22 05:43 Dose: 75 mg Sodium Chloride (0.9 % Sodium Chloride Flush 3 Ml Syringe) 3 ml IVFLUSH QSHIFT [facility] Home Medications Medication Instructions Recorded Confirmed Last Taken Type buprenorphine 4 mg-naloxone 1 mg 1 film sublingual DAILY 10/30/20 02/11/22 Unknown History sublingual film (Suboxone) Physical Exam Vital Signs and Narrative: Vital Signs: Last Vital Signs Temp 98.0 F 04/12/22 05:41 Pulse 94 04/12/22 05:41 Resp 18 04/12/22 05:41 BP 125/81 04/12/22 05:41 Pulse Ox 98 04/12/22 06:12 O2 Del Method 04/12/22 06:12 O2 Flow Rate 2 04/12/22 06:12 BMI result Body Mass Index 34.9 Const: Other: ill appearing General: cooperative and no acute distress Orientation/consciousness: patient oriented x3 Eyes: General: appearance normal, both eyes and all related structures Pupils: Equal, round and reactive pupils present Resp: Effort & Inspection: normal respiratory effort Auscultation: clear to auscultation bilaterally Cardio: Rate: regular rate Rhythm: regular rhythm GI: Palpation (GI): Soft to palpation Auscultation: normal bowel sounds Skin: General skin exam: no rashes or lesions noted Neuro: General: patient oriented x3 Cranial nerves: Yes Equal, round and reactive pupils present Cognition (Neuro): normal cognition Extrem: General: Yes normal to inspection and Yes no pedal edema Results Labs CBC and Chem 7: 04/11/22 23:34 04/12/22 04:40 Labs: Laboratory Results - last 24 hr 04/11/22 04/11/22 04/11/22 23:34 23:34 23:34 MCV 92.8 MCH 31.0 MCHC 33.4 RDW 14.1 Plt Count 188 D MPV 9.1 L Immature Gran % (Auto) 0.4 Neut % (Auto) 85.4 H Lymph % (Auto) 6.2 L [place] % (Auto) 7.6 Eos % (Auto) 0.2 Baso % (Auto) 0.2 Lymph # (Auto) 0.6 L [place] # (Auto) 0.8 Eos # (Auto) 0.0 Baso # (Auto) 0.0 Abs Immat Gran (auto) 0.04 H Absolute Neuts (auto) 8.5 H Absolute Nucleated RBC 0.000 Nucleated RBC % (auto) 0.0 ESR PT 11.8 INR 1.0 APTT 35.6 Anion Gap 15 Estim Creat Clear Calc 147.0 Estimated GFR > 60 Random Glucose 68 Lactic Acid Calcium 8.2 L D Total Bilirubin 0.7 AST 66 H ALT 118 H Alkaline Phosphatase 149 H D Total Creatine Kinase 142 H Troponin I High Sens C-Reactive Protein 20.26 H Total Protein 5.3 L D Albumin 3.4 L D Lipase < 4 L Influenza Type A (PCR) Influenza Type B (PCR) RSV RNA Qual (PCR) SARS-CoV-2 RNA (RT-PCR) 04/11/22 04/11/22 04/11/22 23:34 23:34 23:34 MCV MCH MCHC RDW Plt Count MPV Immature Gran % (Auto) Neut % (Auto) Lymph % (Auto) [place] % (Auto) Eos % (Auto) Baso % (Auto) Lymph # (Auto) [place] # (Auto) Eos # (Auto) Baso # (Auto) Abs Immat Gran (auto) Absolute Neuts (auto) Absolute Nucleated RBC Nucleated RBC % (auto) ESR PT INR APTT Anion Gap Estim Creat Clear Calc Estimated GFR Random Glucose Lactic Acid 0.8 Calcium Total Bilirubin AST ALT Alkaline Phosphatase Total Creatine Kinase Troponin I High Sens 308.0 H* C-Reactive Protein Total Protein Albumin Lipase Influenza Type A (PCR) POSITIVE A Influenza Type B (PCR) NEGATIVE RSV RNA Qual (PCR) NEGATIVE SARS-CoV-2 RNA (RT-PCR) NEGATIVE 04/11/22 04/12/22 04/12/22 23:34 02:27 04:40 MCV MCH MCHC RDW Plt Count MPV Immature Gran % (Auto) Neut % (Auto) Lymph % (Auto) [place] % (Auto) Eos % (Auto) Baso % (Auto) Lymph # (Auto) [place] # (Auto) Eos # (Auto) Baso # (Auto) Abs Immat Gran (auto) Absolute Neuts (auto) Absolute Nucleated RBC Nucleated RBC % (auto) ESR 16 PT INR APTT Anion Gap Estim Creat Clear Calc Estimated GFR Random Glucose Lactic Acid Calcium Total Bilirubin AST ALT Alkaline Phosphatase Total Creatine Kinase Troponin I High Sens 452.1 H* 430.2 H* C-Reactive Protein Total Protein Albumin Lipase Influenza Type A (PCR) Influenza Type B (PCR) RSV RNA Qual (PCR) SARS-CoV-2 RNA (RT-PCR) 04/12/22 04:40 MCV MCH MCHC RDW Plt Count MPV Immature Gran % (Auto) Neut % (Auto) Lymph % (Auto) [place] % (Auto) Eos % (Auto) Baso % (Auto) Lymph # (Auto) [place] # (Auto) Eos # (Auto) Baso # (Auto) Abs Immat Gran (auto) Absolute Neuts (auto) Absolute Nucleated RBC Nucleated RBC % (auto) ESR PT INR APTT Anion Gap 12 Estim Creat Clear Calc 165.4 Estimated GFR > 60 Random Glucose 78 Lactic Acid Calcium 7.8 L Total Bilirubin 0.4 AST 47 H ALT 94 H Alkaline Phosphatase 131 H Total Creatine Kinase Troponin I High Sens C-Reactive Protein Total Protein 4.5 L Albumin 2.9 L Lipase Influenza Type A (PCR) Influenza Type B (PCR) RSV RNA Qual (PCR) SARS-CoV-2 RNA (RT-PCR) Imaging Radiologist's Impressions: Impressions Chest X-Ray 04/11/22 23:44 IMPRESSION: Unremarkable examination. Assessment and Plan (1) Influenza A: Status: Acute (2) Elevated troponin I level: Status: Acute (3) Elevated LFTs: Status: Acute (4) Acute respiratory failure with hypoxia: Status: Acute Plan this 6-year-old female with past medical history as mentioned above presents to the hospital with upper respiratory symptoms found to have influenza A positive # acute hypoxic respiratory failure - patient's oxygen dropped to 89% on room air - no evidence of pneumonia on chest x-ray - no history of underlying lung disease per patient - will treat with oxygen - monitor respiratory status # influenza a - will treat with Tamiflu - follow respiratory symptoms - continue oxygen as required # elevated troponin level - discussed with Cardiology, likely secondary to myocarditis in the setting of influenza infection - troponin downtrending - admit to telemetry - hold off on heparinizing and no aspirin at this time # elevated LFTs - likely secondary to influenza infection - will start with IV fluids - hepatitis panel - follow liver panel # pain - continue home medications DVT prophylaxis: Lovenox given elevated troponin, requiring further workup, as well as hypoxia requiring oxygen patient require minimum 2 night inpatient hospital stay for further management and monitoring Time Spent With Patient Time: Total time managing care of this patient today ____ minutes. Quality Stroke Does the patient have a stroke diagnosis?: No VTE Prior VTE?: No VTE Risk Level:: Medical - moderate - high VTE Device Contraindication: Treatment Not Indicated VTE Drug Contraindication: N/A - Med Ordered
[2022-04-12 08:39] LABS: Appearance Urine Clear; Color Urine Dark Yellow; Glucose Urine UA Negative (Negative); Leukocyte Esterase Urine Negative (Negative); Nitrite Urine Negative (Negative); PH 5.5 (5.0-9.0); Specific Gravity - Urine 1.025 (1.005-1.025); Urine Blood Negative (Negative); Urine Ketones 80 mg/dL (Negative); Urine Protein Trace mg/dL (Neg-Trace)
[2022-04-12] MEDS: Acetaminophen 325 MG TABLET 650 MG PO ×2 (08:46→22:27)
--- NOTE | 2022-04-12 08:49 | PC.NURSE ---
patient a/ox4 . reddrlla . heart rate regular at 90 beats per minutes . breathing labored and even . moist non productive cough . lungs diminished with crackles noted throughout , patient currently on 2l via nasal [place] . skin pink , warm and moist . abdomen soft . positive bowel sounds in all four quadrants . patient reports 8 out of 10 headache , medicated with 650 of Tylenol PRN as ordered . patient on radiator specialist . patient aware of plan of care .
[2022-04-12] MEDS: Ibuprofen 400 MG TABLET PO (09:18)
--- NOTE | 2022-04-12 09:23 | PHA.MEDREC ---
Pharmacy Consult ? Medication Reconciliation Pharmacy has completed the medication reconciliation. Patient takes Suboxone 6mg daily
[2022-04-12] MEDS: Buprenorphine/Naloxone 2/0.5mg FILM 1 FILM SUBLINGUAL (11:28)
[2022-04-12] MEDS: Buprenorphine/Naloxone 4/1 mg FILM 1 FILM SUBLINGUAL (11:28)
--- NOTE | 2022-04-12 11:43 | PM.EVENT ---
Event Note Date of Service: 04/12/22 Event Note: Day hospitalist update S: c/o cough, dyspnea, headache, and myalgias denies chest pain O: Temp Pulse Resp BP Pulse Ox O2 Del Method O2 Flow Rate 98.0 F 85 16 121/76 97 2 04/12/22 11:28 04/12/22 11:28 04/12/22 11:28 04/12/22 11:28 04/12/22 11:28 04/12/22 11:04/12/22 11:28 Gen: tired, ill-appearing HEENT: sclera anicteric, moist mucus membranes Neck: supple Lungs: clear to auscultation bilaterally Heart: regular rate and rhythm, no murmurs Abd: soft, non-tender, non-distended, obese Ext: no edema Skin: warm/well-perfused Neuro: alert and oriented x3, no focal findings Psych: appropriate affect Labs: ALT 94, hs Tn-I 430. 2 (down from 452.1) A/P: hospital day#1 56yo F with chronic pain presenting with symptomatic influenza A and found to be hypoxic with elevated troponin without ischemic EKG changes # troponin elevation - suspect myocarditis due to influenza - Cardiology consult - TTE - metoprolol # influenza A - oseltamivir d#04/16 # AHRF - wean O2 as tolerated # chronic pain - continue Suboxone + gabapentin + venlafaxine # VTE ppx: LMWH # dispo: anticipate eventual home Time Spent With Patient Time: Total time managing care of this patient today __25__ minutes.
[2022-04-12] MEDS: Metoprolol Succinate ER 25 MG TAB.ER.24H PO (12:05)
--- NOTE | 2022-04-12 13:27 | MHC.CM.PN ---
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
--- NOTE | 2022-04-12 13:30 | P.CONCA_ITS ---
History of Present Illness History of Present Illness Date of Service: 04/12/22 Requesting physician: Laura Barrett Consult reason: troponin elevation Chief complaint: Myocarditis, Influenza A Narrative: I was consulted to see Rody in cardiology consultation today because she came in with viral syndrome with fever chills and muscle aches. Tested positive for influenza. Noted to have elevated troponins in the 300 range which went up to 4 00 range. She has no chest pain syndrome. Given also with shortness of breath and was noted to be hypoxemic. Currently receiving oxygen and her oxygenation has improved. She has wheezing. She still feels weak and has malaise and fatigue. Noted to also have elevated white cell count as well as LFTs overall findings consistent with while syndrome with systemic inflammatory response syndrome. Patient denies any palpitations. Review of Systems Constitutional: Constitutional: Reports body ache(s), Reports fatigue, Reports fever(s) and Reports malaise ENT: Reports system reviewed and no additional complaints, except as documented Cardiovascular: Cardiovascular: Denies chest pain, Denies rapid heart rate, Denies leg edema, Denies lightheadedness, Denies Loss of Consciousness, Denies palpitations, Reports dyspnea and Reports dyspnea on exertion Respiratory: Respiratory: Reports cough, Reports dyspnea and Reports dyspnea on exertion Gastrointestinal: Gastrointestinal: Reports no additional gastrointestinal complaints Genitourinary: Genitourinary: Reports no additional female genitourinary complaints Musculoskeletal: Musculoskeletal: Reports myalgias Neurologic: Reports system reviewed and no additional complaints, except as documented Endocrine: Endocrine: Reports fatigue and Denies palpitations Hematologic/Lymphatic: Hematologic/Lymphatic: Reports no additional hematologic/lymphatic complaints Allergic/Immunologic: Allergic/Immunologic: Reports no additional allergic/immunologic complaints [facility] Past Medical History Medical History Anxiety associated with depression Bilateral hip pain Dyslipidemia Left hip pain Lower back pain Somatic dysfunction of left sacroiliac joint Urinary incontinence Social History Social History Alcohol intake: current Alcohol intake frequency: holidays/special occasions only Patient Tobacco Use Status: Never used Tobacco Cigarette Packs Per Day: 1 Cigarettes Per Day: 20 Smoked in Last 30 Days: Yes e-Cigarette/Vaping Use: Never Used Second Hand Smoke Exposure: No Use of substances other than those prescribed or required for medical reasons: Yes Substance Use Type: Heroin Advance Directives: No Advance Directives Information Provided: No Patient : No service: No Current occupational status: employed Current occupation: [employer] Cognitive needs: No Hearing needs: No Vision needs: No Meds Allergies Allergy/AdvReac Type Severity Reaction Status Date / Time omeprazole [From PRILOSEC] Allergy Severe ANAPHYLAXIS Verified 03/11/22 10:12 lansoprazole [Prevacid] Allergy Unknown anaphylaxis Verified 03/11/22 10:12 Active Medications: Current Medications Acetaminophen (Acetaminophen 325 Mg Tablet) 650 mg PO Q6H PRN PRN Reason: Pain, Mild (Pain Scale 1-3) Last Admin: 04/12/22 08:46 Dose: 650 mg Buprenorphine/Naloxone (Buprenorphine/Naloxone 2/0.5mg Film) 1 film SUBLINGUAL DAILY [facility] Last Admin: 04/12/22 11:28 Dose: 1 film Buprenorphine/Naloxone (Buprenorphine/Naloxone 4/1 Mg Film) 1 film SUBLINGUAL DAILY [facility] Last Admin: 04/12/22 11:28 Dose: 1 film Clonidine HCl (Clonidine Hcl 0.1 Mg Tablet) 0.1 mg PO BID [facility]; Protocol Enoxaparin Sodium (Enoxaparin Sodium 40 Mg/0.4 Ml Syringe) 40 mg SUBCUT Q24H [facility] Last Admin: 04/12/22 05:45 Dose: 40 mg Gabapentin (Gabapentin 300 Mg Capsule) 600 mg PO TID [facility] Lactated Ringer's (Lr) 1,000 mls @ 100 mls/hr IVCONT .Q10H [facility] Last Admin: 04/12/22 05:45 Dose: 100 mls/hr Ibuprofen (Ibuprofen 400 Mg Tablet) 400 mg PO Q8H PRN PRN Reason: hip and leg pain Metoprolol Succinate (Metoprolol Succinate Er 25 Mg Tab.Er.24h) 25 mg PO DAILY [facility]; Protocol Last Admin: 04/12/22 12:05 Dose: 25 mg Ondansetron HCl (Ondansetron Hcl 4 Mg/2 Ml Vial) 4 mg IVPUSH Q8H PRN PRN Reason: Nausea and Vomiting Oseltamivir Phosphate (Oseltamivir Phosphate 75 Mg Capsule) 75 mg PO BID [facility] Stop: 04/16/22 09:01 Last Admin: 04/12/22 08:47 Dose: 75 mg Sodium Chloride (0.9 % Sodium Chloride Flush 3 Ml Syringe) 3 ml IVFLUSH QSHIFT [facility] Last Admin: 04/12/22 08:38 Dose: Not Given Venlafaxine HCl (Venlafaxine Hcl Er 150 Mg Cap.Er.24h) 150 mg PO BID [facility] Home Medications Medication Instructions Recorded Confirmed Last Taken Type buprenorphine 4 mg-naloxone 1 mg 1 film sublingual DAILY 10/30/20 04/12/22 Unknown History sublingual film (Suboxone) buprenorphine 2 mg-naloxone 0.5 mg 1 strip sublingual DAILY 04/12/22 04/12/22 Unknown History sublingual film ibuprofen 200 mg tablet 400 mg PO Q8H PRN hip and leg pain 04/12/22 04/12/22 Unknown History Physical Exam Vital Signs: Vital Signs: Last Vital Signs Temp 98.0 F 04/12/22 11:28 Pulse 85 04/12/22 11:28 Resp 16 04/12/22 11:28 BP 121/76 04/12/22 11:28 Pulse Ox 97 04/12/22 11:28 O2 Del Method 04/12/22 11:28 O2 Flow Rate 2 04/12/22 11:28 BMI result Body Mass Index 34.9 Const: General: cooperative, comfortable, alert, awake and ill appearing Nutritional Appearance: obese Orientation/consciousness: patient oriented x3 HEENT: Head: Yes normocephalic and Yes atraumatic Neck: Neck: Yes trachea midline, Yes supple and Yes no JVD Resp: Effort & Inspection: normal respiratory effort Auscultation: wheezes scattered wheezes Cardio: Jugular venous distension: no JVD Palpation: normal PMI Rate: regular rate Rhythm: regular rhythm Heart sounds: S1 normal heart sound present, S2 normal heart sound present, no click, no gallops, no murmurs and no rubs GI: Auscultation: normal bowel sounds Skin: General skin exam: no rashes or lesions noted Neuro: General: patient oriented x3 and no focal motor deficits Extrem: General: Yes no clubbing, cyanosis or edema Objective Labs and Meds Result diagrams: 04/11/22 23:34 04/12/22 04:40 Lab results: Laboratory Results - last 24 hr 04/11/22 04/11/22 04/11/22 23:34 23:34 23:34 WBC 10.0 RBC 4.71 Hgb 14.6 Hct 43.7 MCV 92.8 MCH 31.0 MCHC 33.4 RDW 14.1 Plt Count 188 D MPV 9.1 L Immature Gran % (Auto) 0.4 Neut % (Auto) 85.4 H Lymph % (Auto) 6.2 L [place] % (Auto) 7.6 Eos % (Auto) 0.2 Baso % (Auto) 0.2 Lymph # (Auto) 0.6 L [place] # (Auto) 0.8 Eos # (Auto) 0.0 Baso # (Auto) 0.0 Abs Immat Gran (auto) 0.04 H Absolute Neuts (auto) 8.5 H Absolute Nucleated RBC 0.000 Nucleated RBC % (auto) 0.0 ESR PT 11.8 INR 1.0 APTT 35.6 Sodium 138 Potassium 3.9 Chloride 101 Carbon Dioxide 26 Anion Gap 15 BUN 12 Creatinine 0.54 Estim Creat Clear Calc 147.0 Estimated GFR > 60 Random Glucose 68 Lactic Acid Calcium 8.2 L D Total Bilirubin 0.7 AST 66 H ALT 118 H Alkaline Phosphatase 149 H D Total Creatine Kinase 142 H Troponin I High Sens C-Reactive Protein 20.26 H Total Protein 5.3 L D Albumin 3.4 L D Lipase < 4 L Urine Color Urine Appearance Urine pH Ur Specific [place] Urine Protein Urine Glucose (UA) Urine Ketones Urine Blood Urine Nitrite Ur Leukocyte Esterase Influenza Type A (PCR) Influenza Type B (PCR) RSV RNA Qual (PCR) SARS-CoV-2 RNA (RT-PCR) 04/11/22 04/11/22 04/11/22 23:34 23:34 23:34 WBC RBC Hgb Hct MCV MCH MCHC RDW Plt Count MPV Immature Gran % (Auto) Neut % (Auto) Lymph % (Auto) [place] % (Auto) Eos % (Auto) Baso % (Auto) Lymph # (Auto) [place] # (Auto) Eos # (Auto) Baso # (Auto) Abs Immat Gran (auto) Absolute Neuts (auto) Absolute Nucleated RBC Nucleated RBC % (auto) ESR PT INR APTT Sodium Potassium Chloride Carbon Dioxide Anion Gap BUN Creatinine Estim Creat Clear Calc Estimated GFR Random Glucose Lactic Acid 0.8 Calcium Total Bilirubin AST ALT Alkaline Phosphatase Total Creatine Kinase Troponin I High Sens 308.0 H* C-Reactive Protein Total Protein Albumin Lipase Urine Color Urine Appearance Urine pH Ur Specific [place] Urine Protein Urine Glucose (UA) Urine Ketones Urine Blood Urine Nitrite Ur Leukocyte Esterase Influenza Type A (PCR) POSITIVE A Influenza Type B (PCR) NEGATIVE RSV RNA Qual (PCR) NEGATIVE SARS-CoV-2 RNA (RT-PCR) NEGATIVE 04/11/22 04/12/22 04/12/22 23:34 02:27 04:40 WBC RBC Hgb Hct MCV MCH MCHC RDW Plt Count MPV Immature Gran % (Auto) Neut % (Auto) Lymph % (Auto) [place] % (Auto) Eos % (Auto) Baso % (Auto) Lymph # (Auto) [place] # (Auto) Eos # (Auto) Baso # (Auto) Abs Immat Gran (auto) Absolute Neuts (auto) Absolute Nucleated RBC Nucleated RBC % (auto) ESR 16 PT INR APTT Sodium Potassium Chloride Carbon Dioxide Anion Gap BUN Creatinine Estim Creat Clear Calc Estimated GFR Random Glucose Lactic Acid Calcium Total Bilirubin AST ALT Alkaline Phosphatase Total Creatine Kinase Troponin I High Sens 452.1 H* 430.2 H* C-Reactive Protein Total Protein Albumin Lipase Urine Color Urine Appearance Urine pH Ur Specific [place] Urine Protein Urine Glucose (UA) Urine Ketones Urine Blood Urine Nitrite Ur Leukocyte Esterase Influenza Type A (PCR) Influenza Type B (PCR) RSV RNA Qual (PCR) SARS-CoV-2 RNA (RT-PCR) 04/12/22 04/12/22 04:40 08:30 WBC RBC Hgb Hct MCV MCH MCHC RDW Plt Count MPV Immature Gran % (Auto) Neut % (Auto) Lymph % (Auto) [place] % (Auto) Eos % (Auto) Baso % (Auto) Lymph # (Auto) [place] # (Auto) Eos # (Auto) Baso # (Auto) Abs Immat Gran (auto) Absolute Neuts (auto) Absolute Nucleated RBC Nucleated RBC % (auto) ESR PT INR APTT Sodium 139 Potassium 3.5 Chloride 106 Carbon Dioxide 25 Anion Gap 12 BUN 12 Creatinine 0.48 L Estim Creat Clear Calc 165.4 Estimated GFR > 60 Random Glucose 78 Lactic Acid Calcium 7.8 L Total Bilirubin 0.4 AST 47 H ALT 94 H Alkaline Phosphatase 131 H Total Creatine Kinase Troponin I High Sens C-Reactive Protein Total Protein 4.5 L Albumin 2.9 L Lipase Urine Color Dark Yellow Urine Appearance Clear Urine pH 5.5 Ur Specific [place] 1.025 Urine Protein Trace Urine Glucose (UA) Negative Urine Ketones 80 Urine Blood Negative Urine Nitrite Negative Ur Leukocyte Esterase Negative Influenza Type A (PCR) Influenza Type B (PCR) RSV RNA Qual (PCR) SARS-CoV-2 RNA (RT-PCR) Imaging Radiologist's impression: Impressions Chest X-Ray 04/11/22 23:44 IMPRESSION: Unremarkable examination. Assessment and Plan (1) Elevated troponin I level: Status: Acute Elevated troponins most consistent with diffuse while syndrome with myocardial involvement suggestive myocarditis. Patient has no signs or symptoms of heart failure. Clinically hemodynamically stable with no significant tachycardia. Will require echocardiogram to rule out LV function, will be performed tomorrow. Start metoprolol for myocardial protection to reduce arrhythmic risk. Continue supportive care for viral sepsis/syndrome as well as treatment for influenza. IV hydration. Continue treat COPD exacerbation oxygen supplementation for hypoxemic respiratory failure. Will sign of the case at this point time. Thank you for allowing me to partake in her care Time Spent With Patient Time: Total time managing care of this patient today ____ minutes. Procedures Date of Service Date of Service: 04/12/22
[2022-04-12] MEDS: Gabapentin 300 MG CAPSULE 600 MG PO ×2 (14:00→20:33)
--- NOTE | 2022-04-12 16:40 | PC.NURSE ---
Nurse to Nurse rex Garcia . patient ready for transport . patient aware of plan of care .
[2022-04-12] MEDS: Venlafaxine HCl ER 150 MG CAP.ER.24H PO (20:33)
[2022-04-12] MEDS: cloNIDine HCL 0.1 MG TABLET PO (20:33)
[2022-04-12] MEDS: 0.9 % Sodium Chloride Flush 3 ML SYRINGE IVFLUSH (20:37)
[2022-04-12] MEDS: Albuterol/Iprat 2.5/0.5MG 3 ML AMPUL.NEB INHALE (21:46)
[2022-04-12] MEDS: guaiFENesin LA 600 MG TAB.ER.12H PO (21:49)
[2022-04-13] VITALS (8 sets, daily range): BP systolic 98–131; BP diastolic 52–80; PULSE 74–85; RESP 14–20; TEMP 35.5–37.2; O2SAT 90–95; BMI 29.5
[2022-04-13] MEDS: ondansetron HCL 4 MG/2 ML VIAL IVPUSH ×2 (05:36→21:47)
[2022-04-13] MEDS: Enoxaparin Sodium 40 MG/0.4 ML SYRINGE SUBCUT (05:36)
[2022-04-13 07:56] LABS: Alanine Aminotransferase 65 U/L (0-31); Albumin Level 3.1 g/dL (3.5-5.0); Alkaline Phosphatase 103 U/L (39-117); Anion Gap 11 (12-20); Aspartate Amino Transferase 26 U/L (5-31); Bilirubin Total 0.5 mg/dL (0.0-1.0); Blood Urea Nitrogen 12 mg/dL (9-16); Calcium 8.2 mg/dL (8.4-10.2); Carbon Dioxide 29 mmol/L (22-29); Chloride 105 mmol/L (96-108); Creatinine Clr Calc Pharmacy 148.8; Estimated Glomerular Filt Rate > 60; Glucose Random 151 mg/dL (60-115); Potassium 3.9 mmol/L (3.3-5.1); Sodium 141 mmol/L (135-145)
--- NOTE | 2022-04-13 08:00 | CA_ITS ---
Transthoracic Echocardiogram Patient (Last, First, Middle): Rody Xiong C Gender: Female Date of : 1965 Age: 56 Procedure Date: 04/13/2022 Procedure Type: Transthoracic Echocardiogram Location: [facility] [place] Height: 172.72 cm Weight: 87.54 kg BSA: 2.01 m2 Heart Rate: 84 bpm BP: 111 / 64 mmHg Interlocking And Signal Mechanic: SB Referring MD: Laura Barrett MD Loading Machine Adjuster: Rigoberto Mcgovern MD Symptoms: elev [id number]-I- ?myocarditis from influenza Study Quality: Fair apical window with contrast ECG Rhythm: Sinus Conclusions: - 1. Hyperdynamic LV systolic function with impaired relaxation filling pattern 2. Normal cardiac valvular Doppler 3. Moderately elevated right ventricular systolic pressure 4. No gross pericardial effusion Findings Procedure Information Contrast agent, definity, is being given per protocol without apparent complications. Left Ventricle Normal left ventricular cavity size. There is normal left ventricular wall thickness. The left ventricular systolic function is hyperdynamic. The visually estimated ejection fraction is >70%. Spectral Doppler is indicative of an impaired relaxation filling pattern. Right Ventricle Normal right ventricular cavity size and systolic function. Atria The left atrium is normal in size. Interatrial shunt cannot be excluded. The right atrium was not well visualized. Aortic Valve The aortic valve structure and function is likely normal. There is no aortic valve stenosis. There is no aortic valve regurgitation. Mitral Valve There is mild anterior mitral leaflet thickening. There is trace mitral valve regurgitation. There is no mitral valve stenosis. Pulmonic Valve The pulmonic valve was not well visualized. Tricuspid Valve Likely normal tricuspid valve structure and function. There is mild tricuspid valve regurgitation. Normal right atrial pressure. Moderate pulmonary hypertension is present. Great Vessels All visible segments of the aorta are normal in size. The pulmonary artery was not well visualized. Venous The inferior vena cava is normal in size and collapses greater than 50% with inspiration. Pericardium/Pleural There is no evidence of pericardial effusion. Prior Study Comparison No prior study available for comparison. Measurements 2D Linear Measurements IVSd: 0.74 0.6-0.9/0.6-1.0 cm LVIDd: 4.74 3.9-5.3/4.2-5.9 cm LVIDd Index: 2.36 2.4-3.2/2.2-3.1 cm/m2 LVIDs: 3.01 2.0-3.6 cm LVPWd: 0.81 0.7-1.1 cm LA Diam: 3.30 2.7-3.8/3.0-4.0 cm LAIDs Index: 1.64 1.5-2.3 cm/m2 LV Mass: 147.69 67-162/88-224 g LV Mass Index: 73.48 43-95/49-115 g/m2 LVOT Diam: 2.00 3.0+(-)1.3 cm 2D Systolic Function EF Teich: 66.00 >55% EF 4C: 72.90 >55% Mitral Valve MV Pk E: 0.70 MV PK A: 0.37 MV Decel Time: 155.00 E/A: 1.90 E'Lateral: 9.25 E'Medial: 10.80 E/E' Med: 6.50 E/E' Lat: 7.60 PHT: 45.00 MVA PHT: 4.89 Decel [place]: 4.53 Aortic Valve AoV Pk Amari: 1.47 AoV Pk Grad: 9.00 MYESHA: 2.80 LVOT LVOT Pk Amari: 1.23 LVOT Mn Amari: 0.90 LVOT VTI: 0.22 LVOT Pk Grad: 6.00 LVOT Mn Grad: 4.00 LVOT Diam: 2.00 LVOT Area: 3.14 Diastolic Function MV Pk E: 0.70 MV Pk A: 0.37 E/A: 1.90 E'Medial: 10.80 E/E' Med: 6.50 E' Laterial: 9.25 E/E' Lat: 7.60 Right Ventricle TAPSE (mm): 17.10 TVS' Amari: 10.20 Tricuspid Valve TR Pk Amari: 3.34 TR Pk Grad: 45.00 RA Press: 3.00 RVSP: 48.00 Great Vessels Aorta Sinus of Valsalva: 2.60 2.0-3.5 cm Ao Asc: 3.00 2.1-3.4 cm Pulmonary Valve PV Pk Amari: 0.96 Peak PV Grad: 4.00 Updated in Other Vendor System with Status of Final Rigoberto Mcgovern MD electronically signed on 04/13/2022 1:26:22 PM with status of Final
[2022-04-13 08:06] LABS: C Reactive Protein 16.87 mg/dL (< or = 0.50)
--- NOTE | 2022-04-13 08:57 | MHC.CM.PN ---
Female 56 DX Flu Myocarditis DP Home no services when medically cleared. Patient will arange for transportation home.
--- NOTE | 2022-04-13 09:13 | HO.PM.IMPN ---
Subjective Subjective Date of Service: 04/13/22 Interval History: dyspnea/cough slightly better c/o myalgias + headache no chest pain or palpitations no events on telemetry Review of Systems Review of Systems: Yes all other systems are reviewed and are negative Physical Exam Vital Signs: Vital Signs: Last Vital Signs Temp 98 F 04/13/22 07:18 Pulse 85 04/13/22 07:18 Resp 18 04/13/22 07:18 BP 111/64 04/13/22 07:18 Pulse Ox 94 04/13/22 07:18 O2 Del Method 04/13/22 07:18 O2 Flow Rate 2 04/13/22 03:25 BMI result Body Mass Index 29.5 Gen: tired, ill-appearing HEENT: sclera anicteric, moist mucus membranes Neck: supple Lungs: clear to auscultation bilaterally Heart: regular rate and rhythm, no murmurs Abd: soft, non-tender, non-distended, obese Ext: no edema Skin: warm/well-perfused Neuro: alert and oriented x3, no focal findings Psych: appropriate affect Objective Data Active Medications Acetaminophen (Acetaminophen 325 Mg Tablet) 650 mg PO Q6H PRN PRN Reason: Pain, Mild (Pain Scale 1-3) Last Admin: 04/12/22 22:27 Dose: 650 mg Documented By: ALEC Albuterol/Ipratropium (Albuterol/Iprat 2.5/0.5mg 3 Ml Ampul.Neb) 3 ml INHALE Q4H PRN PRN Reason: Shortness of Breath/Wheezing Last Admin: 04/12/22 21:46 Dose: 3 ml Documented By: HERMELINDO Albuterol/Ipratropium (Albuterol/Iprat 2.5/0.5mg 3 Ml Ampul.Neb) 3 ml INHALE RQ4H WHILE AWAKE [facility] Buprenorphine/Naloxone (Buprenorphine/Naloxone 2/0.5mg Film) 1 film SUBLINGUAL DAILY PER Last Admin: 04/12/22 11:28 Dose: 1 film Documented By: PATRICIA Buprenorphine/Naloxone (Buprenorphine/Naloxone 4/1 Mg Film) 1 film SUBLINGUAL DAILY PER Last Admin: 04/12/22 11:28 Dose: 1 film Documented By: PATRICIA Clonidine HCl (Clonidine Hcl 0.1 Mg Tablet) 0.1 mg PO BID PER; Protocol Last Admin: 04/12/22 20:33 Dose: 0.1 mg Documented By: KRIS Enoxaparin Sodium (Enoxaparin Sodium 40 Mg/0.4 Ml Syringe) 40 mg SUBCUT Q24H [facility] Last Admin: 04/13/22 05:36 Dose: 40 mg Documented By: KRIS Gabapentin (Gabapentin 300 Mg Capsule) 600 mg PO TID [facility] Last Admin: 04/12/22 20:33 Dose: 600 mg Documented By: KRIS Guaifenesin (Guaifenesin La 600 Mg Tab.Er.12h) 600 mg PO BID PRN PRN Reason: cough Last Admin: 04/12/22 21:49 Dose: 600 mg Documented By: KRIS Lactated Ringer's (Lr) 1,000 mls @ 100 mls/hr IVCONT .Q10H [facility] Last Admin: 04/13/22 00:55 Dose: Not Given Documented By: KRIS Non-Admin Reason: Patient Refused Ibuprofen (Ibuprofen 400 Mg Tablet) 400 mg PO Q8H PRN PRN Reason: hip and leg pain Metoprolol Succinate (Metoprolol Succinate Er 25 Mg Tab.Er.24h) 25 mg PO DAILY [facility]; Protocol Last Admin: 04/12/22 12:05 Dose: 25 mg Documented By: PATRICIA Ondansetron HCl (Ondansetron Hcl 4 Mg/2 Ml Vial) 4 mg IVPUSH Q8H PRN PRN Reason: Nausea and Vomiting Last Admin: 04/13/22 05:36 Dose: 4 mg Documented By: KRIS Oseltamivir Phosphate (Oseltamivir Phosphate 75 Mg Capsule) 75 mg PO BID [facility] Stop: 04/16/22 09:01 Last Admin: 04/12/22 20:33 Dose: 75 mg Documented By: KRIS Sodium Chloride (0.9 % Sodium Chloride Flush 3 Ml Syringe) 3 ml IVFLUSH QSHIFT [facility] Last Admin: 04/12/22 20:37 Dose: 3 ml Documented By: KRIS Venlafaxine HCl (Venlafaxine Hcl Er 150 Mg Cap.Er.24h) 150 mg PO BID [facility] Last Admin: 04/12/22 20:33 Dose: 150 mg Documented By: HO.BRIGC Labs CBC & Chem 7: 04/11/22 23:34 04/13/22 07:06 Labs: Laboratory Results - last 24 hr 04/13/22 07:06 Anion Gap 11 L Estim Creat Clear Calc 148.8 Estimated GFR > 60 Random Glucose 151 H Calcium 8.2 L Total Bilirubin 0.5 AST 26 D ALT 65 H Alkaline Phosphatase 103 D C-Reactive Protein 16.87 H Total Protein 5.0 L Albumin 3.1 L Microbiology Microbiology Results: Microbiology 04/11/22 23:34 Blood Culture - Preliminary Blood - Venous No growth after 24 hours. 04/11/22 23:34 Blood Culture - Preliminary Blood - Venous No growth after 24 hours. Assessment and Plan (1) Influenza A: Status: Acute Plan hospital day#2 56yo F with chronic pain presenting with symptomatic influenza A and found to be hypoxic with elevated troponin without ischemic EKG changes # troponin elevation - suspect myocarditis due to influenza - Cardiology consulted, TTE pending - on metoprolol succinate for arrhythmia prevention # AHRF - weaned off O2 # influenza A - oseltamivir d#05/17 # chronic pain - continue Suboxone + gabapentin + venlafaxine # VTE ppx: LMWH # dispo: anticipate eventual home perhaps tomorrow Time Spent With Patient Time: Total time managing care of this patient today __25__ minutes. Quality Stroke Does the patient have a stroke diagnosis?: No VTE Prior VTE?: No VTE Risk Level:: Medical - moderate - high VTE Device Contraindication: Treatment Not Indicated VTE Drug Contraindication: N/A - Med Ordered
[2022-04-13] MEDS: Metoprolol Succinate ER 25 MG TAB.ER.24H PO (09:45)
[2022-04-13] MEDS: Buprenorphine/Naloxone 4/1 mg FILM 1 FILM SUBLINGUAL (09:45)
[2022-04-13] MEDS: Oseltamivir Phosphate 75 MG CAPSULE PO ×2 (09:45→21:43)
[2022-04-13] MEDS: Buprenorphine/Naloxone 2/0.5mg FILM 1 FILM SUBLINGUAL (09:45)
[2022-04-13] MEDS: Gabapentin 300 MG CAPSULE 600 MG PO ×3 (09:46→21:43)
[2022-04-13] MEDS: Venlafaxine HCl ER 150 MG CAP.ER.24H PO ×2 (09:46→21:42)
[2022-04-13] MEDS: Albuterol/Iprat 2.5/0.5MG 3 ML AMPUL.NEB INHALE ×3 (09:46→19:45)
[2022-04-13] MEDS: Acetaminophen 325 MG TABLET 650 MG PO ×2 (09:49→23:37)
[2022-04-13] MEDS: Ibuprofen 400 MG TABLET PO ×2 (09:50→23:39)
[2022-04-13] MEDS: 0.9 % Sodium Chloride Flush 3 ML SYRINGE IVFLUSH ×2 (09:51→17:28)
[2022-04-13] MEDS: cloNIDine HCL 0.2 MG TABLET PO (21:43)
[2022-04-14] VITALS (9 sets, daily range): BP systolic 87–123; BP diastolic 56–69; PULSE 70–86; RESP 16–22; TEMP 36.2–36.9; O2SAT 93–98; BMI 28.8
[2022-04-14] MEDS: 0.9 % Sodium Chloride Flush 3 ML SYRINGE IVFLUSH ×3 (05:10→16:43)
[2022-04-14] MEDS: ondansetron HCL 4 MG/2 ML VIAL IVPUSH ×2 (06:27→16:51)
[2022-04-14] MEDS: Enoxaparin Sodium 40 MG/0.4 ML SYRINGE SUBCUT (06:27)
[2022-04-14] MEDS: Lactated Ringers 1,000 ML 100 ML IVCONT (06:27)
[2022-04-14] MEDS: Albuterol/Iprat 2.5/0.5MG 3 ML AMPUL.NEB INHALE ×3 (08:24→19:34)
[2022-04-14] MEDS: Gabapentin 300 MG CAPSULE 600 MG PO ×3 (09:36→21:33)
[2022-04-14] MEDS: Buprenorphine/Naloxone 4/1 mg FILM 1 FILM SUBLINGUAL (09:37)
[2022-04-14] MEDS: Venlafaxine HCl ER 150 MG CAP.ER.24H PO ×2 (09:37→21:32)
[2022-04-14] MEDS: Buprenorphine/Naloxone 2/0.5mg FILM 1 FILM SUBLINGUAL (09:37)
--- NOTE | 2022-04-14 10:36 | P.PNIM_ITS ---
Subjective Subjective Date of Service: 04/14/22 Interval History: dyspnea improving no chest pain somewhat dizzy with ambulation BP low overnight Review of Systems Review of Systems: Yes all other systems are reviewed and are negative Physical Exam Vital Signs: Vital Signs: Last Vital Signs Temp 97.2 F 04/14/22 07:21 Pulse 78 04/14/22 09:26 Resp 16 04/14/22 08:24 BP 103/65 04/14/22 07:21 Pulse Ox 98 04/14/22 07:21 O2 Del Method 04/14/22 07:21 O2 Flow Rate 2 04/14/22 07:21 BMI result Body Mass Index 28.8 Gen: in no acute distress HEENT: sclera anicteric, moist mucus membranes Neck: supple Lungs: clear to auscultation bilaterally Heart: regular rate and rhythm, no murmurs Abd: soft, non-tender, non-distended Ext: no edema Skin: warm/well-perfused Neuro: alert and oriented x3, no focal findings Psych: appropriate affect Objective Data Active Medications Acetaminophen (Acetaminophen 325 Mg Tablet) 650 mg PO Q6H PRN PRN Reason: Pain, Mild (Pain Scale 1-3) Last Admin: 04/13/22 23:37 Dose: 650 mg Documented By: JONO Acetaminophen/Butalbital/Caffeine (Butalb/Acetamin/Caff 50/325/40 Tablet) 1 tab PO Q4H PRN PRN Reason: headache Albuterol/Ipratropium (Albuterol/Iprat 2.5/0.5mg 3 Ml Ampul.Neb) 3 ml INHALE Q4H PRN PRN Reason: Shortness of Breath/Wheezing Last Admin: 04/12/22 21:46 Dose: 3 ml Documented By: HERMELINDO Albuterol/Ipratropium (Albuterol/Iprat 2.5/0.5mg 3 Ml Ampul.Neb) 3 ml INHALE RQ4H WHILE AWAKE [facility] Last Admin: 04/14/22 08:24 Dose: 3 ml Documented By: SOL Buprenorphine/Naloxone (Buprenorphine/Naloxone 2/0.5mg Film) 1 film SUBLINGUAL DAILY [facility] Last Admin: 04/14/22 09:37 Dose: 1 film Documented By: ACE Buprenorphine/Naloxone (Buprenorphine/Naloxone 4/1 Mg Film) 1 film SUBLINGUAL DAILY [facility] Last Admin: 04/14/22 09:37 Dose: 1 film Documented By: ACE Clonidine HCl (Clonidine Hcl 0.2 Mg Tablet) 0.2 mg PO BEDTIME [facility]; Protocol Last Admin: 04/13/22 21:43 Dose: 0.2 mg Documented By: JONO Enoxaparin Sodium (Enoxaparin Sodium 40 Mg/0.4 Ml Syringe) 40 mg SUBCUT Q24H [facility] Last Admin: 04/14/22 06:27 Dose: 40 mg Documented By: JONO Gabapentin (Gabapentin 300 Mg Capsule) 600 mg PO TID [facility] Last Admin: 04/14/22 09:36 Dose: 600 mg Documented By: ACE Guaifenesin (Guaifenesin La 600 Mg Tab.Er.12h) 600 mg PO BID PRN PRN Reason: cough Last Admin: 04/12/22 21:49 Dose: 600 mg Documented By: KRIS Metoprolol Succinate (Metoprolol Succinate Er 12.5 Mg Halftab.Er.24h) 12.5 mg PO DAILY [facility]; Protocol Ondansetron HCl (Ondansetron Hcl 4 Mg/2 Ml Vial) 4 mg IVPUSH Q8H PRN PRN Reason: Nausea and Vomiting Last Admin: 04/14/22 06:27 Dose: 4 mg Documented By: JONO Oseltamivir Phosphate (Oseltamivir Phosphate 75 Mg Capsule) 75 mg PO BID [facility] Stop: 04/16/22 09:01 Last Admin: 04/13/22 21:43 Dose: 75 mg Documented By: JONO Sodium Chloride (0.9 % Sodium Chloride Flush 3 Ml Syringe) 3 ml IVFLUSH QSHIFT [facility] Last Admin: 04/14/22 05:10 Dose: 3 ml Documented By: JONO Venlafaxine HCl (Venlafaxine Hcl Er 150 Mg Cap.Er.24h) 150 mg PO BID [facility] Last Admin: 04/14/22 09:37 Dose: 150 mg Documented By: ACE Labs CBC & Chem 7: 04/11/22 23:34 04/13/22 07:06 Microbiology Microbiology Results: Microbiology 04/11/22 23:34 Blood Culture - Preliminary Blood - Venous No growth after 48 hours. 04/11/22 23:34 Blood Culture - Preliminary Blood - Venous No growth after 48 hours. Echocardiogram Echocardiogram Results: TTE 04/13/22 1. Hyperdynamic LV systolic function with impaired relaxation? filling pattern? 2. Normal cardiac valvular Doppler ? 3. Moderately elevated right ventricular systolic pressure ? ? ? 4. No gross pericardial effusion ? Assessment and Plan (1) Influenza A: Status: Acute Plan hospital day#3 56yo F with chronic pain presenting with symptomatic influenza A and found to be hypoxic with elevated troponin without ischemic EKG changes # myocarditis due to influenza - Cardiology consulted, will need outpt f/u, avoid NSAIDs - on metoprolol succinate for arrhythmia prevention- halve dose to 12.5 mg daily due to hypotension # AHRF - wean O2 as tolerated [placed back on it overnight] # influenza A - oseltamivir d#3/ # chronic pain - continue Suboxone + gabapentin + venlafaxine # VTE ppx: LMWH # dispo: home with VNA perhaps tomorrow Time Spent With Patient Time: Total time managing care of this patient today _35___ minutes. Quality Stroke Does the patient have a stroke diagnosis?: No VTE Prior VTE?: No VTE Risk Level:: Medical - moderate - high VTE Device Contraindication: Treatment Not Indicated VTE Drug Contraindication: N/A - Med Ordered
[2022-04-14] MEDS: Oseltamivir Phosphate 75 MG CAPSULE PO ×2 (10:59→21:32)
[2022-04-14] MEDS: Metoprolol Succinate ER 12.5 MG HALFTAB.ER.24H PO (11:00)
[2022-04-14] MEDS: Sennosides/Docusate Sodium TABLET 2 TAB PO ×2 (12:19→21:33)
[2022-04-14] MEDS: Acetaminophen 325 MG TABLET 650 MG PO (16:36)
[2022-04-14] MEDS: cloNIDine HCL 0.2 MG TABLET PO (21:33)
[2022-04-14] MEDS: guaiFENesin LA 600 MG TAB.ER.12H PO (21:38)
[2022-04-15] VITALS: BP 104/69; PULSE 84; RESP 18; TEMP 36.7; O2SAT 93
[2022-04-15] MEDS: 0.9 % Sodium Chloride Flush 3 ML SYRINGE IVFLUSH ×2 (01:32→07:54)
[2022-04-15 03:09] VITALS: BP 95/64; PULSE 81; RESP 20; TEMP 36.7; O2SAT 95
[2022-04-15 04:28] VITALS: BMI 30.1
[2022-04-15 04:38] LABS: HBS Num1 4.02 mIU/mL (0-7.99); HBc Num1 0.03 S/CO (0.00-0.79); HBsAGNum1 0.34 S/CO (0.00-0.99); HIV AB/AG Nonreactive (Nonreactive); HIV Num 1 0.05 S/CO (0.00-0.99); Hepatitis B Core Antibody Nonreactive (Nonreactive); Hepatitis B Surface Antigen Negative (Negative); ~HepC Num1 0.04 S/CO (0.00-0.79); ~Hepatitis B Surface Antibody NONREACTIVE (Nonreactive); ~Hepatitis C Antibody Nonreactive (Nonreactive)
[2022-04-15 05:55] LABS: Hematocrit 39.1 % (37.0-47.0); Hemoglobin 12.5 g/dl (12.0-16.0); Mean Corpuscular Hemoglobin 30.3 pg (27.0-33.0); Mean Corpuscular Volume 94.7 fL (80.0-98.0); Mean Platelet Volume 9.2 fL (9.4-12.3); Platelet Count 209 X10*3/uL (160-400); Red Blood Count 4.13 X10*6/uL (4.20-5.50); Red Cell Distribution Width 14.3 % (11.0-16.0); White Blood Count 8.4 X10*3/uL (4.8-10.8)
[2022-04-15] MEDS: Acetaminophen 325 MG TABLET 650 MG PO (06:03)
[2022-04-15] MEDS: Enoxaparin Sodium 40 MG/0.4 ML SYRINGE SUBCUT (06:05)
[2022-04-15 06:19] LABS: C Reactive Protein 15.35 mg/dL (< or = 0.50)
[2022-04-15 06:38] LABS: Procalcitonin 0.03 ng/mL
[2022-04-15 07:41] VITALS: PULSE 81; RESP 20; O2SAT 96
[2022-04-15] MEDS: Albuterol/Iprat 2.5/0.5MG 3 ML AMPUL.NEB INHALE ×2 (07:41→11:27)
[2022-04-15] MEDS: Sennosides/Docusate Sodium TABLET 2 TAB PO (07:53)
[2022-04-15] MEDS: Venlafaxine HCl ER 150 MG CAP.ER.24H PO (07:53)
[2022-04-15] MEDS: ondansetron HCL 4 MG/2 ML VIAL IVPUSH (07:53)
[2022-04-15] MEDS: Gabapentin 300 MG CAPSULE 600 MG PO ×2 (07:54→13:46)
[2022-04-15] MEDS: Buprenorphine/Naloxone 4/1 mg FILM 1 FILM SUBLINGUAL (07:54)
[2022-04-15] MEDS: Oseltamivir Phosphate 75 MG CAPSULE PO (07:54)
[2022-04-15] MEDS: Buprenorphine/Naloxone 2/0.5mg FILM 1 FILM SUBLINGUAL (07:54)
[2022-04-15] MEDS: Metoprolol Succinate ER 12.5 MG HALFTAB.ER.24H PO (07:54)
[2022-04-15 08:00] VITALS: BP 94/55; PULSE 72; RESP 16; TEMP 36.1; O2SAT 92
--- NOTE | 2022-04-15 08:59 | P.CDIC_ITS ---
CDI Concurrent Query Documentation Clarification: PHYSICIAN'S DOCUMENTATION REQUEST Date of Query: 04/15/22 0900 Patient Name: Rody Xiong Admit Date: 04/12/22 Dear Doctor, A review of the medical record indicates additional documentation may be needed. Please review below and update the documentation accordingly. Clinical Indicators: Specifics: Risk Factors/Clinical Indicators/Treatments Cardiology note 04/12 - elevated troponins most consistent with diffuse white syndrome with myocardial involvement suggestive of myocarditis. PN: Symptomatic influenza A and found to be hypoxic with elevated troponins. Myocarditis due to influenza A. Based on the above, could you clarify in the Progress Notes the appropriate diagnosis, if significant, that supports the above abnormalities and additional evaluation, monitoring, and/or treatment rendered: Myocarditis * Acute or subacute * Active * Infective * Bacterial * Other (please specify) * Unable to determine Use of terms such as suspected, likely, concern for, or probable (associated with a specific diagnosis that is being evaluated, monitored, or treated as if it exists) are acceptable and can be coded in the inpatient setting, when documented at the time of discharge. Thank you, Sarah Green [facility], CDIS Extension: [phone] Please use your independent medical judgment in providing your response. THIS QUERY IS PART OF THE PERMANENT MEDICAL RECORD Provider Response: Other Other Diagnosis: acute infection-associated
--- NOTE | 2022-04-15 09:10 | P.CDIC_ITS ---
CDI Concurrent Query Documentation Clarification: PHYSICIAN'S DOCUMENTATION REQUEST Date of Query: 04/15/22 0910 Patient Name: Rody Xiong Admit Date: 04/12/22 Dear Doctor, A review of the medical record indicates additional documentation may be needed. Please review below and update the documentation accordingly Risk Factors/Clinical Indicators/Treatments Cardiology consult note 04/12 - Noted to have elevated wbc as well as LFT's overall findings consistent with white syndrome with systemic inflammatory response syndrome. Assessment/plan: Continue supportive care for Viral Sepsis/syndrome as well as treatment for influenza. IV hydration. Sepsis Systemic manifestations of infection, with 2 or more SIRS criteria which include: * Fever > 100.4?F or hypothermia < 96.8?F * Leukocytosis ? WBC > 12,000 or leukopenia, WBC < 4,000, or > 10% bands * Tachycardia- > 90 beats/minute * Tachypnea- RR > 20 breaths/minute or PaCO2 < 32mmHg Based on the above information and the recognized standard for sepsis, could you please clarify in the Progress Notes if this diagnoses is still accurate and reflective of the patient's condition to ensure quality of the medical record. * Viral Sepsis is/was present and is a clinical diagnosis based on SIRS * After study (the condition) has been ruled out * Other (please specify) * Unable to determine Use of terms such as suspected, likely, concern for, or probable (associated with a specific diagnosis that is being evaluated, monitored, or treated as if it exists) are acceptable and can be coded in the inpatient setting, when documented at the time of discharge. Thank you, Sarah Green [facility], CDIS Extension: [phone] Please use your independent medical judgment in providing your response. THIS QUERY IS PART OF THE PERMANENT MEDICAL RECORD Provider Response: Other Other Diagnosis: viral sepsis
[2022-04-15 09:57] VITALS: PULSE 90; PULSE 91; PULSE 97; O2SAT 87; O2SAT 91
[2022-04-15 11:29] VITALS: PULSE 75; RESP 18; O2SAT 91
--- NOTE | 2022-04-15 13:08 | P.DS_ITS ---
DS: Providers Provider Date of Service: 04/15/22 Date of admission: 04/12/22 13:55 Primary care physician: KASEY Sherman Consults: 04/12/22 03:58 Consult to Cardiology Routine Consulting Provider: Rigoberto Mcgovern Reason for consultation: Myocaridits Has provider been notified: Yes DS: Diagnosis Discharge Diagnosis (1) Influenza A: Status: Acute (2) Acute myocarditis due to influenza virus: Status: Acute (3) Acute respiratory failure with hypoxia: Status: Acute (4) Viral sepsis: Status: Acute DS: Summary Hospital Course Hospital Course: from admission history and physical on 04/12/22 by hospitalist Davy Johnston, 04/12/22: 56 yo F with pmhx of? chronic pain, hyperlipidemia, and depression presents to the hospital with complaints of feeling sick, coughing, headache, chills, sore throat, nonproductive cough, shortness of breath, nausea vomiting as well as generalized body aches, rigors, and weakness for the past 2 days.? Patient reports no recent sick contacts, denies any chest pain, no palpitations, no abdominal pain, no urinary symptoms and no lower extremity edema.? On arrival to the ED patient found to have a heart rate of 101, on my exam patient was on 2 L, satting 95%.? I asked the nurse to turn off the oxygen to see if patient desatted so she did desat to 89% at rest.? she was placed back on 2 L of oxygen satting 98%. Labs are significant for? WBC count of? 10, AST of 66, ALT of 118, alk-phos of 149, creatinine of 142, Troponin of? 308, repeat 452, and a 3rd repeat of 430, CRP of 20, lipase less than 4, influenza a positive ?patient's EKG shows sinus rhythm, nonspecific? T-wave abnormalities ?chest x-ray shows unremarkable exam ?patient's case was discussed with Cardiology, recommended admission for? further management This 56yo F with chronic pain presenting with symptomatic influenza A and found to be hypoxic with elevated troponin without ischemic EKG changes. Cardiology was consulted. She was thought to have myocarditis due to influenza A infection. She was started on metoprolol succinate for arrhythmia prevention. She was placed on oxygen and weaned to room air; however, she required 2L with ambulation and qualified therefore for home oxygen. She was given oseltamivir for influenza treatment. No evidence of bacterial superinfection. She was discharged home and instructed to follow up with Primary Care and Cardiology. Time Spent with Patient Time attestation: Total time managing care of this patient today __40__ minutes. Discharge coordination time: Greater than 30 minutes Quality: Safe Use of Opioids Does Pt have an Active Cancer Diagnosis on the Problem List?: No Quality: Stroke Does the patient have a stroke diagnosis?: No Physical Exam Vital Signs: Vital Signs: Last Vital Signs Temp 97.0 F 04/15/22 08:00 Pulse 75 04/15/22 11:29 Resp 18 04/15/22 11:29 BP 94/55 L 04/15/22 08:00 Pulse Ox 92 04/15/22 08:00 O2 Del Method 04/15/22 08:00 O2 Flow Rate 2 04/15/22 03:09 BMI result Body Mass Index 30.1 Gen: in no acute distress HEENT: sclera anicteric, moist mucus membranes Neck: supple Lungs: clear to auscultation bilaterally Heart: regular rate and rhythm, no murmurs Abd: soft, non-tender, non-distended Ext: no edema Skin: warm/well-perfused Neuro: alert and oriented x3, no focal findings Psych: appropriate affect DS: Data Data Completed and Pending Completed studies during hospitalization [Text1]: Laboratory Results WBC 8.4 X10*3/uL (4.8-10.8) 04/15/22 05:36 RBC 4.13 X10*6/uL (4.20-5.50) L 04/15/22 05:36 Hgb 12.5 g/dl (12.0-16.0) 04/15/22 05:36 Hct 39.1 % (37.0-47.0) 04/15/22 05:36 MCV 94.7 fL (80.0-98.0) 04/15/22 05:36 MCH 30.3 pg (27.0-33.0) 04/15/22 05:36 MCHC 32.0 g/dl (31.0-35.0) 04/15/22 05:36 RDW 14.3 % (11.0-16.0) 04/15/22 05:36 Plt Count 209 X10*3/uL (160-400) 04/15/22 05:36 MPV 9.2 fL (9.4-12.3) L 04/15/22 05:36 Immature Gran % (Auto) 0.4 % (0.0-0.4) 04/11/22 23:34 Neut % (Auto) 85.4 % (45-73) H 04/11/22 23:34 Lymph % (Auto) 6.2 % (20-40) L 04/11/22 23:34 [place] % (Auto) 7.6 % (2-11) 04/11/22 23:34 Eos % (Auto) 0.2 % (0-4) 04/11/22 23:34 Baso % (Auto) 0.2 % (0-2) 04/11/22 23:34 Lymph # (Auto) 0.6 X10*3/uL (1.2-4.9) L 04/11/22 23:34 [place] # (Auto) 0.8 X10*3/uL (0.1-1.2) 04/11/22 23:34 Eos # (Auto) 0.0 X10*3/uL (0.0-0.4) 04/11/22 23:34 Baso # (Auto) 0.0 X10*3/uL (0.0-0.2) 04/11/22 23:34 Abs Immat Gran (auto) 0.04 X10*3/uL (0.00-0.03) H 04/11/22 23:34 Absolute Neuts (auto) 8.5 x10*3/uL (2.0-8.3) H 04/11/22 23:34 Absolute Nucleated RBC 0.000 X10*3/uL (0.0-0.012) 04/15/22 05:36 Nucleated RBC % (auto) 0.0 /100WBC (0.0-0.2) 04/15/22 05:36 ESR 16 MM/HR (0-20) 04/11/22 23:34 PT 11.8 SEC (10.0-13.1) 04/11/22 23:34 INR 1.0 (0.9-1.1) 04/11/22 23:34 APTT 35.6 SEC (26.0-36.4) 04/11/22 23:34 Sodium 141 mmol/L (135-145) 04/13/22 07:06 Potassium 3.9 mmol/L (3.3-5.1) 04/13/22 07:06 Chloride 105 mmol/L (96-108) 04/13/22 07:06 Carbon Dioxide 29 mmol/L (22-29) 04/13/22 07:06 Anion Gap 11 (12-20) L 04/13/22 07:06 BUN 12 mg/dL (9-16) 04/13/22 07:06 Creatinine 0.49 mg/dL (0.5-1.4) L 04/13/22 07:06 Estim Creat Clear Calc 148.8 04/13/22 07:06 Estimated GFR > 60 04/13/22 07:06 Random Glucose 151 mg/dL (60-115) H 04/13/22 07:06 Lactic Acid 0.8 mmol/L (0.5-2.0) 04/11/22 23:34 Calcium 8.2 mg/dL (8.4-10.2) L 04/13/22 07:06 Total Bilirubin 0.5 mg/dL (0.0-1.0) 04/13/22 07:06 AST 26 U/L (5-31) D 04/13/22 07:06 ALT 65 U/L (0-31) H 04/13/22 07:06 Alkaline Phosphatase 103 U/L (39-117) D 04/13/22 07:06 Total Creatine Kinase 142 U/L (26-140) H 04/11/22 23:34 Troponin I High Sens 430.2 ng/L (<3.5-17.0) H* 04/12/22 04:40 C-Reactive Protein 15.35 mg/dL (< or = 0.50) H 04/15/22 05:36 Total Protein 5.0 g/dL (6.5-8.0) L 04/13/22 07:06 Albumin 3.1 g/dL (3.5-5.0) L 04/13/22 07:06 Lipase < 4 U/L (8-78) L 04/11/22 23:34 Procalcitonin 0.03 ng/mL 04/15/22 05:36 Urine Color Dark Yellow 04/12/22 08:30 Urine Appearance Clear 04/12/22 08:30 Urine pH 5.5 (5.0-9.0) 04/12/22 08:30 Ur Specific [place] 1.025 (1.005-1.025) 04/12/22 08:30 Urine Protein Trace mg/dL (Neg-Trace) 04/12/22 08:30 Urine Glucose (UA) Negative mg/dL (Negative) 04/12/22 08:30 Urine Ketones 80 mg/dL (Negative) 04/12/22 08:30 Urine Blood Negative (Negative) 04/12/22 08:30 Urine Nitrite Negative (Negative) 04/12/22 08:30 Ur Leukocyte Esterase Negative (Negative) 04/12/22 08:30 Hep Bs Antigen Negative (Negative) 04/13/22 07:06 Hep Bs Antibody NONREACTIVE (Nonreactive) 04/13/22 07:06 Hep B Core Total Ab Nonreactive (Nonreactive) 04/13/22 07:06 Hepatitis C Ab (EIA) Nonreactive (Nonreactive) 04/13/22 07:06 HIV 1&2 Ab/P24 Ag 4thGn Nonreactive (Nonreactive) 04/13/22 07:06 Influenza Type A (PCR) POSITIVE (Negative) A 04/11/22 23:34 Influenza Type B (PCR) NEGATIVE (Negative) 04/11/22 23:34 RSV RNA Qual (PCR) NEGATIVE (Negative) 04/11/22 23:34 SARS-CoV-2 RNA (RT-PCR) NEGATIVE (Negative) 04/11/22 23:34 Impressions Chest X-Ray 04/11/22 23:44 IMPRESSION: Unremarkable examination. TTE 04/13/22 1. Hyperdynamic LV systolic function with impaired relaxation? filling pattern? 2. Normal cardiac valvular Doppler ? 3. Moderately elevated right ventricular systolic pressure ? ? ? 4. No gross pericardial effusion ? Labs on day of discharge: = Discharge Plan Discharge Anticipated Discharge Date/Time: 04/15/22 11:58 Patient Disposition: Home, Self-Care Discharge Diagnosis: acute hypoxic respiratory failure and myocarditis due to influenza infection Referrals: Ezra Zuñiga FNP- [Primary Care Provider] - 1 Week Rigoberto Mcgovern MD [Physician] - 1 Week Discharge Medications: New vqjamfmlzl-mhwobsegdnfvz-abwe 50-325-40 mg Tablet 1 tab PO Q4H PRN (Reason: headache) Qty: 30 0RF oseltamivir [Tamiflu] 75 mg Capsule 75 mg PO BID Qty: 2 0RF metoprolol succinate 25 mg tablet extended release 24 hr 12.5 mg PO DAILY Qty: 15 0RF Continued venlafaxine 150 mg capsule,extended release 24hr 150 mg PO BID Qty: 60 2RF gabapentin 300 mg capsule 600 mg PO TID 30 Days Qty: 180 3RF clonidine HCl 0.1 mg tablet 0.1 mg PO BID Qty: 60 3RF buprenorphine-naloxone 2-0.5 mg film 1 strip sublingual DAILY Rx Instructions: administer with suboxone 4mg; total dose 6mg buprenorphine-naloxone [Suboxone] 4-1 mg film 1 film sublingual DAILY Rx Instructions: administer with suboxone 2mg; total dose 6mg Discontinued ibuprofen 200 mg Tablet 400 mg PO Q8H PRN (Reason: hip and leg pain) Discharge Orders: Discharge Order (Routine); Ordered 04/15/22 Ordered By: Laura Barrett Diet: Advance to usual diet Activity on Discharge: As tolerated Stand Alone Forms: Patient Portal Discharge page, Work/School Release Care Plan Goals: recovery from influenza Health Concerns: acute hypoxic respiratory failure and myocarditis due to influenza infection Plan of Treatment: oxygen 2L with exertion start metoprolol succinate 12.5 mg daily for arrhythmia prevention complete 1 more day of oseltamivir 75 mg twice daily avoid NSAIDs for now follow up with Dr Mcgovern [place] [facility] [place] 1-2 weeks Please follow up with your primary care doctor within 1 week. Return to the hospital if you experience recurrent or worsening symptoms. Assessment: See Discharge Summary.
--- NOTE | 2022-04-15 13:50 | MHC.CM.PN ---
Patient is discharged home today self care. New O2 provided by [facility]. Patient has arranged for transportation home. She is an [employer] and declined home services; which were not covered by insurance. She verbalized understanding and competent to manage at home.
== END 2022-04-15 14:00 | disposition home or self-care (01) | DRG 871 ==
LOC: HO.ED 04-12 03:22 → HO.EDOVER 04-12 04:05 → HO.IMC 04-12 16:23
PROVIDERS: Admitting Provider Internal Medicine; Emergency Provider Emergency Medicine Emergency Medical Services; PCP Nurse Practitioner Family; Visit Provider Family Medicine
DX: A41.89 Other specified sepsis (principal); J96.01 Acute respiratory failure with hypoxia; F11.20 Opioid dependence, uncomplicated; J10.82 Influenza due to other identified influenza virus with myocarditis; G89.29 Other chronic pain; F41.8 Other specified anxiety disorders; E78.5 Hyperlipidemia, unspecified; F17.210 Nicotine dependence, cigarettes, uncomplicated; Z20.822 Contact with and (suspected) exposure to COVID-19; Z71.6 Tobacco abuse counseling; Z79.899 Other long term (current) drug therapy
CPT/HCPCS: 0241U; 36415; 71045; 80053; 81003; 82550; 83605; 83690; 84145; 84484; 85025; 85027; 85610; 85652; 85730; 86140; 86704; 86706; 86803; 87040; 87340; 87389; 93005; 93306; 94640; 97162; 99285; J1650; J1885; J2405; Q9957

== ENCOUNTER → 2022-04-23 14:41 | Outpatient (BNVA) | payer OTHER, SELFPAY | PROVIDERS: PCP Nurse Practitioner Family; Visit Provider Internal Medicine Cardiovascular Disease | DX: Z13.89 Encounter for screening for other disorder (principal) ==

== ENCOUNTER → 2022-06-10 10:28 | Outpatient (BNVA) | payer BC, SELFPAY | PROVIDERS: PCP Nurse Practitioner Family; Visit Provider Internal Medicine | DX: Z13.89 Encounter for screening for other disorder (principal) ==

== ENCOUNTER 2022-11-18 13:23 | Outpatient (AMB) | payer OTHER, SELFPAY ==
--- NOTE | 2022-11-18 13:40 | MHC.PC.OV ---
Vital Signs 11/18/22 13:41 Height 5 ft Weight 208 lb BMI 40.6 BP 126/74 Blood Pressure Location Rt brachial Position Sitting Pulse 81 Pulse Source Pulse Oximeter Pulse Oximetry (%) 96 Oxygen Delivery Method Room Air Intake Visit Reasons: PE Intake Note: pt is here for PE Allergies omeprazole [From PRILOSEC] Allergy (Severe, Verified 11/18/22 14:15) ANAPHYLAXIS lansoprazole [Prevacid] Allergy (Unknown, Verified 11/18/22 14:15) anaphylaxis Medication List - Last Reconciled 11/18/22 by DAVE Pascal buprenorphine-naloxone 4-1 mg (Suboxone) 1 film sublingual DAILY clonidine HCl 0.1 mg PO BID gabapentin 600 mg (2 x 300 mg) PO TID 30 days nicotine 1 patch transdermal Q24H 28 days venlafaxine ER 150 mg PO BID Tobacco use date assessed: 11/18/22 Dental Screening Dental Screen Date: 11/18/22 Did you have a dental visit in the last 12 months?: No Did you have a dental problem in the last 6 months where you did not have access to dental care?: No Was dental information given to patient?: No HPI PE HPI Details PE: refused mammo. pt has the cologuard test at [facility], i will do it, i promise . 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 Pt does report urinary incont. will get a urinalysis and refer to urology. Pt is interested in the low dose ct scans. 1 pack per day since age 23 . PFSH Medical History (Updated 11/18/22 @ 17:42 by DAVE Pascal) Anxiety associated with depression Bilateral hip pain COPD (chronic obstructive pulmonary disease) Dyslipidemia Exercise hypoxemia Left hip pain Lower back pain Somatic dysfunction of left sacroiliac joint Urinary incontinence Family History Father Substance use disorder Mother Substance use disorder Mental health disorder Maternal Grandmother Substance use disorder Mental health disorder Social History Household Members: Spouse and Friend(s) Housing: House Do you presently have visiting nurse or other home services: No Alcohol intake: current Alcohol intake frequency: holidays/special occasions only Patient Tobacco Use Status: Current everyday Tobacco user Tobacco use type: Cigarette Cigarette Packs Per Day: 1 Cigarettes Per Day: 20.0 e-Cigarette/Vaping Use: Never Used Second Hand Smoke Exposure: No Substance Use Type: Heroin service: No Current occupational status: employed Current occupation: [employer] Cognitive needs: No Hearing needs: No Vision needs: No Questionnaire Thrive Questionnaire Date Thrive assessed: 10/07/21 DAI-7 AMB Questionnaire DAI-7 Date DAI - 7 assessed: 04/27/22 Source: Developed by Drs. Neel Lazaro, Marilee Stanley, Antonio Rodriguez and colleagues, with an educational willie from [employer]. Review of Systems Const Denies chills and Denies fever(s) Eyes Denies blurry vision ENT Denies vertigo, Denies dizziness and Denies sore throat Card Denies chest pain at rest, Denies chest pain with activity, Denies diaphoresis, Denies dyspnea and Denies dyspnea on exertion Resp Denies cough, Denies dyspnea, Denies dyspnea on exertion and Denies wheezing GI Denies abdominal pain, Denies melena, Denies hematochezia, Denies constipation, Denies diarrhea and Denies loose stools Denies hematuria Musc Denies numbness and Denies tingling Skin/Breast Denies lesions Neuro Denies vertigo, Denies dizziness, Denies numbness and Denies tingling Psych Denies anxiety, Denies depression, Denies homicidal ideation, Denies suicidal ideation and Denies other (substance abuse) Aller/Immun Denies wheezing Physical exam (Primary Care) Vital Signs: Last Vital Signs Pulse 81 11/18/22 13:41 BP 126/74 11/18/22 13:41 Pulse Ox 96 11/18/22 13:41 Oxygen Delivery Method Room Air 11/18/22 13:41 BMI result Body Mass Index 40.6 Tobacco/Smoking Status: Tobacco use Status Tobacco use date assessed 11/18/22 11/18/22 13:45 Patient Tobacco Use Status Current everyday Tobacco 11/18/22 13:45 Tobacco use type Cigarette 11/18/22 13:45 e-Cigarette/Vaping Use Never Used 11/18/22 13:45 Thrive Assessment: Date of Thrive Assessment Date Thrive assessed 10/07/21 11/18/22 13:45 Const General: cooperative Nutritional Appearance: well nourished and obese Orientation/consciousness: patient oriented x3 HENMT Head: Yes normal to inspection, Yes normocephalic and Yes atraumatic Ears: TM normal on the right and TM normal on the left Eyes General: appearance normal, both eyes and all related structures Alignment and Position: alignment normal and position normal Neck Neck: Yes normal visual inspection and Yes no lymphadenopathy Resp Effort & Inspection: normal respiratory effort Auscultation: wheezes (faint scattered wheezes) Cardio Rate: regular rate Rhythm: regular rhythm Heart sounds: S1 normal heart sound present, S2 normal heart sound present and no murmurs GI Palpation (GI): Soft to palpation and nontender Auscultation: normal bowel sounds Skin Rashes: no rashes Neuro General: patient oriented x3, moves all extremities, no focal motor deficits and deep tendon reflexes 2+ bilaterally Motor exam (neuro): 5/5 motor strength present throughout Romberg Test: Negative Extrem Right lower extremity: no edema Left lower extremity: no edema Psych Affect: normal affect Attitude: cooperative Thought process: Normal thought process present Assessment and Plan Assessment & Plan (1) Urinary incontinence with continuous leakage: Code(s): N39.45 - Continuous leakage (2) Physical exam: Code(s): Z00.00 - Encounter for general adult medical examination without abnormal findings (3) Smoker: Comment: referring for low dose CT scan Code(s): F17.200 - Nicotine dependence, unspecified, uncomplicated (4) Bilateral hip pain: Code(s): M25.551 - Pain in right hip; M25.552 - Pain in left hip (5) Vitamin D deficiency: Code(s): E55.9 - Vitamin D deficiency, unspecified Orders: Orders Comprehensive [place]. Panel Fast Today Z00.00 - Encounter for general adult medical examination without abnormal findings Lipid Panel Today Z00.00 - Encounter for general adult medical examination without abnormal findings TSH reflex Free T4 Today Z00.00 - Encounter for general adult medical examination without abnormal findings Complete Blood Count Auto Diff Today Z00.00 - Encounter for general adult medical examination without abnormal findings UA CC w/rflx Micro + Cult Today Z00.00 - Encounter for general adult medical examination without abnormal findings PT Evaluation and Treatment Today M25.551 - Pain in right hip, M25.552 - Pain in left hip Vitamin D 25-OH Total Today E55.9 - Vitamin D deficiency, unspecified Referrals Urology Referral N39.45 - Continuous leakage Thoracic Surgery Referral F17.200 - Nicotine dependence, unspecified, uncomplicated Medications: New azithromycin For 250 mg dose pack: take 500 mg today (day 1), then 250 mg for 4 days (days 2-5) PO 6 tabs 0RF prednisone 50 mg PO DAILY 6 days 6 tabs 0RF prednisone 50 mg PO DAILY 6 days 6 tabs 0RF Coding Level of Care Code Est Pt Prev Care 40-64y(57204) Diagnoses Urinary incontinence with continuous leakage N39.45 Physical exam Z00.00 Smoker F17.200 Bilateral hip pain M25.551; M25.552 Vitamin D deficiency E55.9
[2022-11-18 13:41] VITALS: BP 126/74; PULSE 81; O2SAT 96; BMI 40.6
== END 2022-11-18 15:01 | disposition home or self-care (01) ==
PROVIDERS: PCP Nurse Practitioner Family; Visit Provider Nurse Practitioner Family
DX: Z00.00 Encounter for general adult medical examination without abnormal findings (principal); F17.210 Nicotine dependence, cigarettes, uncomplicated; E55.9 Vitamin D deficiency, unspecified; N39.45 Continuous leakage; M25.551 Pain in right hip; M25.552 Pain in left hip
CPT/HCPCS: 99396

== ENCOUNTER 2022-11-18 14:23 | Outpatient (REF) | payer OTHER, SELFPAY ==
[2022-11-18 16:48] LABS: Appearance Urine Clear; Color Urine Yellow; Glucose Urine UA Negative (Negative); Leukocyte Esterase Urine Trace (Negative); Nitrite Urine Negative (Negative); PH 5.5 (5.0-9.0); Specific Gravity - Urine 1.025 (1.005-1.025); UMIC TRIGGER UACC YES; Urine Blood Negative (Negative); Urine Ketones Negative (Negative); Urine Protein Negative (Neg-Trace)
[2022-11-18 16:53] LABS: Bacteria Urine None Seen (None Seen); Hyaline Casts Urine 0-2 /LPF (0-2); Squamous Epithelial Cell Urine 0-2 /HPF (0-2); WBC Urine 0-5 /HPF (0-5)
== END 2022-11-18 14:24 | disposition home or self-care (01) ==
LOC: HO.HMGCLDS 14:23
PROVIDERS: PCP Nurse Practitioner Family; Visit Provider Nurse Practitioner Family
DX: Z00.00 Encounter for general adult medical examination without abnormal findings (principal)
CPT/HCPCS: 81001

== ENCOUNTER 2022-12-31 10:51 | Outpatient (REF) | payer OTHER, SELFPAY ==
[2022-12-31 17:00] LABS: Urine Cytology See Pathology rpt
== END 2022-12-31 10:52 | disposition home or self-care (01) ==
LOC: HO.LAB 10:51
PROVIDERS: PCP Nurse Practitioner Family; Visit Provider Urology
DX: N39.0 Urinary tract infection, site not specified (principal); R31.29 Other microscopic hematuria; R35.0 Frequency of micturition
CPT/HCPCS: 51701; 51798; 81003; 87086; 88112

== ENCOUNTER 2022-12-31 10:51 | Outpatient (AMB) | payer OTHER, SELFPAY ==
--- NOTE | 2022-12-31 10:52 | A.OFFVIS_ITS ---
Intake Intake Visit Reasons: Continuous leakage Intake Note: NEW Patient presents today to established treatment for Urinary Leakage: Meds- None Allergies to Antibiotic- No Known Allergies Blood Thinner- None PVR- 175 mL Retail Office Associate Required: No Accompanied by: Self / Same As Patient Allergies omeprazole [From PRILOSEC] Allergy (Severe, Verified 12/31/22 11:12) ANAPHYLAXIS lansoprazole [Prevacid] Allergy (Unknown, Verified 12/31/22 11:12) anaphylaxis HPI HPI Comments History of Present Illness Details Rody is a 57-year-old female who presents today to the office to establish as a new patient for an evaluation of?continuous leakage. 12/31/2022? She presents today for an evaluation of?continuous leakage and microscopic hematuria. Patient has a past medical history significant for COPD, chronic low back pain, and generalized anxiety, Nicotine dependence. She mentions that she wakes up at night for every 2-3 hours to urinate. She reports urinary leakage, notes urinary frequency. She states that the urinary symptoms have worsened over the past few years. UA 11/2022 - 3-5 RBC'hpf Pelvic examination: No vaginal prolapse noted. Evaluation today?UA? leukocytes: negative; blood: negative. Catheterized PVR was 15 mL. Plan: I am going to start her on Gemtesa 75 mg daily. Nicotine dependence, Microscopic hematuria I will send urine for culture and cytology. Renal US was ordered, and follow up in office Cystoscopy. [facility] Medical History (Updated 02/10/23 @ 10:17 by Jax Navarro MD) COPD (chronic obstructive pulmonary disease) Exercise hypoxemia Nicotine dependence, cigarettes, uncomplicated Dyslipidemia Obesity History of sepsis Urinary frequency Anxiety associated with depression Bilateral hip pain Lower back pain Somatic dysfunction of left sacroiliac joint Surgical History (Updated 01/26/23 @ 12:08 by Mami Prince PA-C) History of section Family History Father Substance use disorder Mother Substance use disorder Mental health disorder Maternal Grandmother Substance use disorder Mental health disorder Social History Household Members: Spouse and Friend(s) Housing: House Do you presently have visiting nurse or other home services: No Alcohol intake: current Alcohol intake frequency: holidays/special occasions only Patient Tobacco Use Status: Current everyday Tobacco user Tobacco use type: Cigarette Cigarette Packs Per Day: 1 Cigarettes Per Day: 20.0 e-Cigarette/Vaping Use: Never Used Second Hand Smoke Exposure: No Substance Use Type: Heroin service: No Current occupational status: employed Current occupation: [employer] Cognitive needs: No Hearing needs: No Vision needs: No Review of Systems Const All systems reviewed & are unremarkable except as noted in HPI and below Reports no additional complaints Eyes Reports no additional complaints ENT Reports no additional complaints Card Denies dyspnea Resp Denies cough and Denies dyspnea GI Reports no additional complaints Reports no additional complaints Musc Reports no additional complaints Skin/Breast Denies rash and Denies unusual bruising Neuro Reports no additional complaints Psych Reports no additional complaints Endo Reports no additional complaints Corey/Lymph Reports no additional complaints Aller/Immun Reports no additional complaints Physical Exam Const General: cooperative, healthy appearing and no acute distress Orientation/consciousness: patient oriented x3 HEENT Head: Yes normal to inspection, Yes normocephalic and Yes atraumatic Eyes Conjunctivae: conjunctivae normal Neck Neck: Yes normal visual inspection and Yes trachea midline Chest Chest palpation & inspection: normal inspection of the chest Resp Effort & Inspection: normal respiratory effort Cardio Rate: regular rate GI Inspection: Yes normal to inspection Palpation (GI): Soft to palpation General: No no CVA tenderness External Female Exam: normal external appearance Speculum Exam - Vagina: vagina atrophic Back/Spine/Pelvis Back: No no CVA tenderness Skin General skin exam: no rashes or lesions noted Neuro General: patient oriented x3 Extrem General: No edema Psych Appearance: grossly normal Office Procedures Bladder/Catheter Procedure Details: Under sterile technique a 14 Estonian catheter was passed transurethrally, 15mL urine drained [id number] Bladder Catheter Procedure code (CPT) selection complete Post Void Residual Post Residual Void Post Void Residual (PVR): 175 [id number] Void Residual by ultrasound Results AMB Urinalysis, Automated UA Leukoctes 0 Jenny/uL Last Edit by Shyanne Schuler A on 12/31/22 11:12 UA Nitrite Negative Last Edit by Shyanne Schuler [facility] on 12/31/22 11:12 UA Urobilinogen 1 mg/dL Last Edit by Shyanne Schuler, A on 12/31/22 11:12 UA Protein 0 mg/dL Last Edit by Shyanne Schuler [facility] on 12/31/22 11:12 UA pH 6.0 Last Edit by Shyanne Schuler, [facility] on 12/31/22 11:12 UA Blood 0 Lucius/uL Last Edit by Shyanne Schuler [facility] on 12/31/22 11:12 UA Specific Lawrence 1.030 Last Edit by Shyanne Schuler [facility] on 12/31/22 11: 12 UA Ketone Positive Last Edit by Shyanne Schuler [facility] on 12/31/22 11:12 5 mg/dL Shyanne Schuler 12/31/22 11:12 UA Bilirubin 1 mg/dL Last Edit by Shyanne Schuler [facility] on 12/31/22 11:12 UA Glucose 0 mg/dL Last Edit by Shyanne Schuler [facility] on 12/31/22 11:12 Results Reviewed Results Reviewed: Laboratory Last Values Urine pH (Auto) 6.0 12/31/22 10:54 Specific Lawrence (Auto) 1.030 12/31/22 10:54 Urine Protein (Auto) 0 mg/dL 12/31/22 10:54 Glucose (UA)(Auto) 0 mg/dL 12/31/22 10:54 Urine Ketones (Auto) Positive 12/31/22 10:54 Urine Blood (Auto) 0 Lucius/uL 12/31/22 10:54 Urine Nitrite (Auto) Negative 12/31/22 10:54 Urine Bilirubin (Auto) 1 mg/dL 12/31/22 10:54 Urine Urobilinogen (Auto) 1 mg/dL 12/31/22 10:54 Leukocyte Esterase (Auto) 0 Jenny/uL 12/31/22 10:54 Assessment & Plan Assessment & Plan (1) Urinary frequency: Code(s): R35.0 - Frequency of micturition (2) Urinary incontinence with continuous leakage: Code(s): N39.45 - Continuous leakage (3) Nicotine dependence: Code(s): F17.200 - Nicotine dependence, unspecified, uncomplicated (4) Microscopic hematuria: Code(s): R31.29 - Other microscopic hematuria Plan I am going to start her on Gemtesa 75 mg daily. Nicotine dependenc. I will send urine for culture and cytology. Renal US was ordered, and follow up in office Cystoscopy. Orders: Orders US renal BI 01/06/23 R35.0 - Frequency of micturition Urine Culture 12/31/22 N39.0 - Urinary tract infection, site not specified AMB Urinalysis Automated 12/31/22 Z13.9 - Encounter for screening, unspecified AMB Post Void Residual by ultrasound 12/31/22 N39.8 - Other specified disorders of urinary system AMB Bladder/Catheter Procedure 12/31/22 R35.0 - Frequency of micturition Urine Cytology 12/31/22 R31.29 - Other microscopic hematuria, R35.0 - Frequency of micturition Medications: New vibegron (Gemtesa) 75 mg PO DAILY 90 tabs 1RF Patient Instructions: The patient had an opportunity to ask questions regarding treatment plan. All questions were answered. Imaging, Laboratory studies and physical exam results were discussed and reviewed in detail. No major barriers to understanding were identified. The patient expressed understanding and agreement with the above treatment plan.? ? ? The patient is aware they should contact our office by phone for worsening of their current condition or the appearance of new symptoms. Compliance is encouraged with any medications and followup testing that is ordered.? ? ? It is a privilege to be allowed the opportunity to participate in the urologic care of your patient. If you have any questions or concerns regarding treatment for the above conditions please do not hesitate to contact me. The office telephone contact is [phone].? ? ? This note is constructed in part using voice recognition software. While every effort has been made to ensure accuracy document control clerk errors may have been included.? ? ? Yours sincerely,? ? ? Jax Navarro MD? Coding Level of Care Code New Pt Level 4 (17423) Diagnoses Urinary frequency R35.0 Urinary incontinence with continuous leakage N39.45 Nicotine dependence F17.200 Microscopic hematuria R31.29 CPT Codes Bladder/Catheter Procedure - CPT: 73829-Dbzlky Bladder Catheter ([id number]) Post Residual Void - PVR CPT Code: 33119-Owdq Void Residual by ultrasound ([id number])
== END 2022-12-31 12:03 | disposition home or self-care (01) ==
PROVIDERS: PCP Nurse Practitioner Family; Visit Provider Urology
DX: R35.0 Frequency of micturition (principal); N39.45 Continuous leakage; R31.29 Other microscopic hematuria; F17.200 Nicotine dependence, unspecified, uncomplicated
CPT/HCPCS: 51701; 99204

== ENCOUNTER 2023-01-06 11:25 | Outpatient (REF) | payer OTHER, SELFPAY ==
--- NOTE | ~2023-01-06 | US_ITS ---
EXAMINATION: US RETROPERITONEAL LIMITED (RENAL ONLY) CLINICAL INFORMATION: Frequency of micturition. COMPARISON: None available. TECHNIQUE: Real-time imaging of the kidneys. FINDINGS: RIGHT KIDNEY: 10.1 x 5.1 x 6.5 cm (SAG x AP x TRV). The kidney is normal in size, contour, and echogenicity. Renal cortical thickness is normal. No calculi or focal parenchymal lesions. No hydronephrosis. LEFT KIDNEY: 10.2 x 6.0 x 5.0 cm (SAG x AP x TRV). The kidney is normal in size, contour, and echogenicity. Renal cortical thickness is normal. No calculi or focal parenchymal lesions. No hydronephrosis. US/US renal BI IMPRESSION: Unremarkable renal ultrasound.
== END 2023-01-06 11:26 | disposition home or self-care (01) ==
LOC: HO.HMGCX 11:25
PROVIDERS: PCP Nurse Practitioner Family; Visit Provider Urology
DX: R35.0 Frequency of micturition (principal)
CPT/HCPCS: 76775

== ENCOUNTER 2023-02-12 13:19 | Outpatient (AMB) | payer OTHER, SELFPAY ==
--- NOTE | 2023-02-12 10:00 | A.OFFVIS_ITS ---
Intake Intake Visit Reasons: LDCT SD Intake Note: Initial visit for this 57yo smoker with a 30PYH. Patient has been smoking since age 23 for 34 years at 1ppd. . Denies marijuana use. Denies second hand smoke exposure. Denies exposure to chemicals or substances like asbestos. . Denies known family history of lung cancer. Denies personal history of cancers. . Denies chest CT in last year. Chest CT done 05/27/16 by PCP noted bilateral pulmonary nodules - largest 3mm . Denies recent travel outside the [place]. Denies recent respiratory illness or recent hospitalization for respiratory issues. Reports testing positive for COVID. twice. Admits receiving COVID Vaccine. x 2. . History of COPD and exercise hypoxia - she has portable O2 during day PRN and 2L at night. Denies fever, chills, new/worsening cough, hemoptysis, hoarseness or dysphagia. Denies significant chest pain, significant dyspnea or unintentional weight loss. Patient Lung Cancer Screening Questionnaire reviewed with patient by provider. . Shared Decision Making Completed. Patient meets criteria. Discussed in detail with patient, the risk vs benefit of LDCT screening. Patient consents to proceed with scan. Discussed smoking cessation. Allergies omeprazole [From PRILOSEC] Allergy (Severe, Verified 12/31/22 11:12) ANAPHYLAXIS lansoprazole [Prevacid] Allergy (Unknown, Verified 12/31/22 11:12) anaphylaxis PFS Medical History (Updated 02/12/23 @ 13:51 by Mami Prince PA-C) COPD (chronic obstructive pulmonary disease) Exercise hypoxemia Nicotine dependence, cigarettes, uncomplicated Dyslipidemia Obesity History of sepsis Urinary frequency Anxiety associated with depression Bilateral hip pain Lower back pain Somatic dysfunction of left sacroiliac joint Surgical History (Updated 01/26/23 @ 12:08 by Mami Prince PA-C) History of section Family History Father Substance use disorder Mother Substance use disorder Mental health disorder Maternal Grandmother Substance use disorder Mental health disorder Social History (Updated 02/12/23 @ 13:51 by Mami Prince PA-C) Household Members: Spouse and Friend(s) Housing: House Do you presently have visiting nurse or other home services: No Alcohol intake: current Alcohol intake frequency: holidays/special occasions only Patient Tobacco Use Status: Current everyday Tobacco user Tobacco use type: Cigarette Cigarette Packs Per Day: 1 Cigarettes Per Day: 20.0 Years Smoked: (onset 23yo, 1ppd x 34yrs, 30pyh) e-Cigarette/Vaping Use: Never Used Second Hand Smoke Exposure: No Substance Use Type: Heroin service: No Current occupational status: employed Current occupation: [employer] Cognitive needs: No Hearing needs: No Vision needs: No Assessment & Plan Assessment & Plan (1) Nicotine dependence, cigarettes, uncomplicated: Comment: (Current smoker - onset 23yo, 1ppd x 34yrs, 30pyh) Code(s): F17.210 - Nicotine dependence, cigarettes, uncomplicated Plan: - SDM visit completed today in office. - Patient meets criteria for LDCT for lung cancer screening purposes and is asymptomatic. - Smoking cessation counseling offered. Patients can always call [phone]. - Will arrange for a LDCT scan of the chest for screening purposes at [facility]. - Risks, benefits, and alternatives were discussed in detail and the patient agrees to proceed. - Risks discussed include but are not limited to: radiation exposure, anxiety during testing and while awaiting results, false negatives, false positives and possibility of additional intervention such as further imaging or surgical procedures for benign disease. - Benefits are obviously detection of lung cancer at an early stage which can lead to improved outcomes. - Discussed the importance of screening program compliance with adherence to yearly LDCT scan as scheduled - or sooner interval scans for personalized screening regimen. - Discussed follow up plan. Our office will send a letter discussing results and if needed set up phone call and office visit based on CT findings. - Patient educated on results categorization and the management decisions for suspicious findings potentially found on the screening LDCT scan. Any patient with a Lung RADS score of 3 or 4 will be reviewed by a multidisciplinary team at [facility] to form a plan of action in regards to scan findings. - If further work up is warranted for a suspicious lung finding this will be followed by the Lung Cancer Screening program in conjunction with the Thoracic Surgery Department at [facility]. - A copy of the office note and LDCT will be sent to the patient's PCP - as well as documentation on any associated further plans of care. - Incidental findings on LDCT are the PCP's responsibility. These findings are indicated with an S finding on the LDCT Assessment. A note discussing the findings will be sent to the PCP who is then responsible for further management. - All questions answered.? Coding Level of Care Code Lung Cancer Screening G0296 Diagnoses Nicotine dependence, cigarettes, uncomplicated F17.210
== END 2023-02-12 14:42 | disposition home or self-care (01) ==
PROVIDERS: PCP Nurse Practitioner Family; Referring Provider Nurse Practitioner Family; Visit Provider Physician Assistant Medical
DX: F17.210 Nicotine dependence, cigarettes, uncomplicated (principal)
CPT/HCPCS: G0296

== ENCOUNTER 2023-02-12 13:50 | Outpatient (REF) | payer OTHER, SELFPAY ==
--- NOTE | ~2023-02-12 | CT_ITS ---
EXAMINATION: CT CHEST SCREENING CLINICAL INFORMATION: Current smoker. 34 pack year history. COMPARISON: Previous chest x-ray March [address] May 2016 TECHNIQUE: Multidetector volumetric CT imaging of the chest is performed without contrast using low dose technique. Additional 2D coronal and sagittal reformatted images and axial 3D maximum intensity projection (MIP) images are generated on the CT workstation. This CT examination was performed using dose optimization techniques as appropriate, variously including the following: *Automated exposure control *Adjustment of mA and/or kV according to patient size (this includes techniques or standardized protocols for targeted exams where dose is matched to indication/reason for exam; i.e. extremities or head) *Use of iterative reconstruction technique DLP: 81 mGy-cm FINDINGS: LUNGS: Mild centrilobular emphysema. There is a 5 mm superior segment left lower lobe nodule axial image 200 series 5. This is increased from 3 mm May 2016 exam. Otherwise small calcified and noncalcified pulmonary nodules are stable. Scattered areas of bronchial wall thickening and soft tissue opacification. MEDIASTINUM: The mediastinum is normal. CORONARY ARTERY CALCIFICATION: Mild PLEURA: There is no pleural effusion. No pleural mass or thickening. AXILLA: No lymphadenopathy. UPPER ABDOMEN: Stable 2 cm low-attenuation right adrenal lesion suggestive of a lipid rich adenoma. Heterogeneous attenuation in the gallbladder questionable for gallstones. OSSEOUS STRUCTURES: Degenerative changes of the spine. CT/CT lung screening IMPRESSION: Mild emphysema. Numerous small calcified and noncalcified pulmonary nodules. Interval increase in largest noncalcified nodule in the superior segment the left lower lobe from 3 to 5 mm on current exam. Attention on follow-up recommended. ASSESSMENT: Lung-RADS category 2: Benign RECOMMENDATION: Annual low-dose chest CT follow-up recommended
== END 2023-02-12 13:51 | disposition home or self-care (01) ==
LOC: HO.CT 13:50
PROVIDERS: PCP Nurse Practitioner Family; Visit Provider Physician Assistant Medical
DX: Z12.2 Encounter for screening for malignant neoplasm of respiratory organs (principal); F17.210 Nicotine dependence, cigarettes, uncomplicated
CPT/HCPCS: 71271; G0296

== ENCOUNTER 2023-05-04 15:03 | Outpatient (AMB) | payer OTHER, SELFPAY ==
--- NOTE | 2023-05-04 15:12 | A.OFFVIS_ITS ---
Intake Intake Visit Reasons: cysto/US Intake Note: Patient presents today for a CYSTOSCOPY Procedure & US Results: Meds: Vesicare Allergies to Antibiotic: No Known Allergies Blood Thinner: None Urinalysis test cleared for Cysto Disposable Uro-G Cystoscope Cannula: Lot: [id number] Exp: 08/19/2024 Grouter Helper Required: No Accompanied by: Self / Same As Patient Allergies omeprazole [From PRILOSEC] Allergy (Severe, Verified 05/04/23 15:13) ANAPHYLAXIS lansoprazole [Prevacid] Allergy (Unknown, Verified 05/04/23 15:13) anaphylaxis Medication List - Last Reconciled 05/04/23 by Jax Navarro MD buprenorphine-naloxone 4-1 mg (Suboxone) 1 film sublingual DAILY clonidine HCl 0.1 mg PO BID gabapentin 600 mg (2 x 300 mg) PO TID 30 days nicotine 1 patch transdermal Q24H 28 days solifenacin (Vesicare) 10 mg PO DAILY 30 days venlafaxine ER 150 mg PO BID HPI HPI Comments History of Present Illness Details Rody is a 57-year-old female who here for office cysto. She is being evaluated for microscopic hematuria and urinary incontinence, Co Morbidity Nicotine Dependence. 05/04/23-- Patient has a past medical history significant for COPD, chronic low back pain, and generalized anxiety, Nicotine dependence. She was prescribed gemtesa which she used for 30 days and she states did not help. She is currently on vesicare 10 mg, and continues to have urgency especially getting up frequently at night, she states she has also noted blurred vision. Reviewed renal US results 01/06/23-- kidneys WNL, no calculi or parenchymal lesions. Cystoscopy: mild/moderate trabeculatios, no suspicious lesions Pelvic examination: No vaginal prolapse noted. I have discussed Bladder Botox injection, the patient was given information to review and wants to think about it. Plan: Stop vesicare. Telehealth to discuss Botox further [facility] Medical History COPD (chronic obstructive pulmonary disease) Exercise hypoxemia Nicotine dependence, cigarettes, uncomplicated Dyslipidemia Obesity History of sepsis Urinary frequency Anxiety associated with depression Bilateral hip pain Lower back pain Somatic dysfunction of left sacroiliac joint Surgical History History of section Family History Father Substance use disorder Mother Substance use disorder Mental health disorder Maternal Grandmother Substance use disorder Mental health disorder Social History Household Members: Spouse and Friend(s) Housing: House Do you presently have visiting nurse or other home services: No Alcohol intake: current Alcohol intake frequency: holidays/special occasions only Patient Tobacco Use Status: Current everyday Tobacco user Tobacco use type: Cigarette Cigarette Packs Per Day: 1 Cigarettes Per Day: 20.0 Years Smoked: (onset 23yo, 1ppd x 34yrs, 30pyh) e-Cigarette/Vaping Use: Never Used Second Hand Smoke Exposure: No Substance Use Type: Heroin service: No Current occupational status: employed Current occupation: [employer] Cognitive needs: No Hearing needs: No Vision needs: No Review of Systems Const All systems reviewed & are unremarkable except as noted in HPI and below Reports no additional complaints Eyes Reports no additional complaints ENT Reports no additional complaints Card Denies dyspnea Resp Denies cough and Denies dyspnea GI Reports no additional complaints Reports no additional complaints Musc Reports no additional complaints Skin/Breast Denies rash and Denies unusual bruising Neuro Reports no additional complaints Psych Reports no additional complaints Endo Reports no additional complaints Corey/Lymph Reports no additional complaints Aller/Immun Reports no additional complaints Office Procedures Cystoscopy Consent Discussed risk and benefit or proposed procedure with the patient. Information consent for procedure given to the patient. Discussed technical aspects, risks, benefits and alternatives in full. Addressed all of the patient's questions and concerns regarding the procedure. The patient demonstrated knowledge and understanding. They wish to proceed with this procedure. Preparation The patient was prepped in the usual manner. A fast food crew member was present and in the room. Genitalia was prepped with betadine solution in a sterile manner. Lidocaine Jelly 2% was placed into the urethra and 16Fr flexible Olympus cystoscope was inserted into the meatus after adequate lubrication. Procedure Time out per protocol performed. Bladder Inspection Bladder Inspection: The bladder was inspected in its entirety with utilization retroflexion displaying: Tumor(s): none Trabeculation: mild to moderate Mucosal Erthema: N/A Orifices: normal shape and position Urethra: normal Cystoscopy findings: no suspicious bladder lesions visualized [id number] DISPOSABLE SCOPE URO-G FLEXIBLE SCOPE Procedure code (CPT) selection complete Office Meds lidocaine HCl 2 % mucosal jelly in applicator Performing Provider: Jax Navarro MD Performing Location: [facility] – [place] [facility] Administered by: Cady Cheng RN on 05/04/23 15:33 Dose Route Admin Location Dispensed Lot Number Expiration Date NDC Feed Grinder 10 mL intra-urethral 20 mL naproxen 500 mg tablet Performing Provider: Jax Navarro MD Performing Location: [facility] – [place] [facility] Administered by: Cady Cheng RN on 05/04/23 15:33 Dose Route Admin Location Dispensed Lot Number Expiration Date NDC Feed Grinder 500 mg PO 1 tab ciprofloxacin HCl 500 mg tablet Performing Provider: Jax Navarro MD Performing Location: [facility] – [place] [facility] Administered by: Cady Cheng RN on 05/04/23 15:33 Dose Route Admin Location Dispensed Lot Number Expiration Date NDC Feed Grinder 500 mg PO 1 tab Results AMB Urinalysis, Automated UA Leukoctes 0 Jenny/uL Last Edit by ELVIN Menjivar on 05/04/23 15:26 UA Nitrite Negative Last Edit by ELVIN Menjivar on 05/04/23 15:26 UA Urobilinogen 0.2 mg/dL Last Edit by ELVIN Menjivar on 05/04/23 15:2 6 UA Protein 15 mg/dL Last Edit by ELVIN Menjivar on 05/04/23 15:26 UA pH 6.0 Last Edit by ELVIN Menjivar on 05/04/23 15:26 UA Blood 0 Lucius/uL Last Edit by ELVIN Menjivar on 05/04/23 15:26 UA Specific [place] 1.025 Last Edit by ELVIN Menjivar on 05/04/23 15: 26 UA Ketone Negative Last Edit by ELVIN Menjivar on 05/04/23 15:26 UA Bilirubin 0 mg/dL Last Edit by ELVIN Menjivar on 05/04/23 15:26 UA Glucose 0 mg/dL Last Edit by ELVIN Menjivar on 05/04/23 15:26 Results Reviewed Results Reviewed: Laboratory Last Values Urine pH (Auto) 6.0 05/04/23 15:13 Specific [place] (Auto) 1.025 05/04/23 15:13 Urine Protein (Auto) 15 mg/dL 05/04/23 15:13 Glucose (UA)(Auto) 0 mg/dL 05/04/23 15:13 Urine Ketones (Auto) Negative 05/04/23 15:13 Urine Blood (Auto) 0 Lucius/uL 05/04/23 15:13 Urine Nitrite (Auto) Negative 05/04/23 15:13 Urine Bilirubin (Auto) 0 mg/dL 05/04/23 15:13 Urine Urobilinogen (Auto) 0.2 mg/dL 05/04/23 15:13 Leukocyte Esterase (Auto) 0 Jenny/uL 05/04/23 15:13 Date of Service: 01/06/23 EXAMINATION: US RETROPERITONEAL LIMITED (RENAL ONLY) CLINICAL INFORMATION: Frequency of micturition. COMPARISON: None available. TECHNIQUE: Real-time imaging of the kidneys. FINDINGS: RIGHT KIDNEY: 10.1 x 5.1 x 6.5 cm (SAG x AP x TRV). The kidney is normal in size, contour, and echogenicity. Renal cortical thickness is normal. No calculi or focal parenchymal lesions. No hydronephrosis. LEFT KIDNEY: 10.2 x 6.0 x 5.0 cm (SAG x AP x TRV). The kidney is normal in size, contour, and echogenicity. Renal cortical thickness is normal. No calculi or focal parenchymal lesions. No hydronephrosis. US/US renal BI IMPRESSION: Unremarkable renal ultrasound. Assessment & Plan Assessment & Plan (1) Urinary frequency: Code(s): R35.0 - Frequency of micturition (2) Urinary incontinence with continuous leakage: Code(s): N39.45 - Continuous leakage (3) Nicotine dependence: Code(s): F17.200 - Nicotine dependence, unspecified, uncomplicated (4) Microscopic hematuria: Code(s): R31.29 - Other microscopic hematuria (5) Bladder wall thickening: Code(s): N32.89 - Other specified disorders of bladder (6) OAB (overactive bladder): Code(s): N32.81 - Overactive bladder Plan Stop vesicare. Telehealth to discuss Botox further Orders: Orders AMB Urinalysis Automated Today Z13.9 - Encounter for screening, unspecified AMB Cystoscopy Today R31.29 - Other microscopic hematuria Medications: Discontinued solifenacin (Vesicare) Discontinued Reason: Doctor's Order 10 mg PO DAILY 30 tabs 1RF 30 days Coding Level of Care Code Est Pt Level 3 (91604) Diagnoses Urinary frequency R35.0 Urinary incontinence with continuous leakage N39.45 Nicotine dependence F17.200 Microscopic hematuria R31.29 Bladder wall thickening N32.89 OAB (overactive bladder) N32.81 CPT Codes Cystoscopy - CPT: 84636-[id number] ([id number])
== END 2023-05-04 16:19 | disposition home or self-care (01) ==
PROVIDERS: PCP Nurse Practitioner Family; Visit Provider Urology
DX: R35.0 Frequency of micturition (principal); N39.45 Continuous leakage; F17.200 Nicotine dependence, unspecified, uncomplicated; R31.29 Other microscopic hematuria; N32.89 Other specified disorders of bladder; N32.81 Overactive bladder; Z13.9 Encounter for screening, unspecified
CPT/HCPCS: 52000; 99213

== ENCOUNTER → 2023-05-04 15:03 | Outpatient (BNVA) | payer OTHER, SELFPAY | PROVIDERS: PCP Nurse Practitioner Family; Visit Provider Urology | DX: R31.29 Other microscopic hematuria (principal); R35.0 Frequency of micturition; N39.45 Continuous leakage; N32.89 Other specified disorders of bladder; N32.81 Overactive bladder | CPT/HCPCS: 52000; 81003 ==

== ENCOUNTER 2023-06-03 08:35 | Outpatient (AMB) | payer OTHER, SELFPAY ==
--- NOTE | 2023-06-03 08:37 | A.OFFVIS_ITS ---
Intake Intake Visit Reasons: follow up/discuss botox Intake Note: Patient presents today to discuss botox treatment: Meds- None Allergies to Antibiotic- No Known Allergies Blood Thinner- None Orthodontist Assistant Required: No Accompanied by: Self / Same As Patient Allergies omeprazole [From PRILOSEC] Allergy (Severe, Verified 06/03/23 08:38) ANAPHYLAXIS lansoprazole [Prevacid] Allergy (Unknown, Verified 06/03/23 08:38) anaphylaxis HPI HPI Comments History of Present Illness0 Details 06/03/23--Rody presents for [employer] vi sit. She states none of the medications have helped she has been on VESIcare in the past and gemtesa. She w as given information on the Botox bladder injection which she states that she has reviewed and wants to proceed with the procedure. I have discussed risks to include hematuria, UTI, urinary retention, need to repeat procedure for sustained efficacy. Review of chart: 05/04/23-- Rody is a 57-year-old female who here for office cysto. She is being evaluated for microscopic hematuria and urinary incontinence, Co Morbidity Nicotine Dependence. Patient has a past medical history significant for COPD, chronic low back pain, and generalized anxiety, Nicotine dependence. She was prescribed gemtesa which she used for 30 days and she states did not help. She is currently on vesicare 10 mg, and continues to have urgency especially getting up frequently at night, she states she has also noted blurred vision. Reviewed renal US results 01/06/23-- kidneys WNL, no calculi or parenchymal lesions. Cystoscopy: mild/moderate trabeculatios, no suspicious lesions Pelvic examination: No vaginal prolapse noted. I have discussed Bladder Botox injection, the patient was given information to review and wants to think about it. 06/03/23--Plan: Schedule bladder Botox injection 100 units. [facility] Medical History COPD (chronic obstructive pulmonary disease) Exercise hypoxemia Nicotine dependence, cigarettes, uncomplicated Dyslipidemia Obesity History of sepsis Urinary frequency Anxiety associated with depression Bilateral hip pain Lower back pain Somatic dysfunction of left sacroiliac joint Surgical History History of section Family History Father Substance use disorder Mother Substance use disorder Mental health disorder Maternal Grandmother Substance use disorder Mental health disorder Social History Household Members: Spouse and Friend(s) Housing: House Do you presently have visiting nurse or other home services: No Alcohol intake: current Alcohol intake frequency: holidays/special occasions only Patient Tobacco Use Status: Current everyday Tobacco user Tobacco use type: Cigarette Cigarette Packs Per Day: 1 Cigarettes Per Day: 20.0 Years Smoked: (onset 23yo, 1ppd x 34yrs, 30pyh) e-Cigarette/Vaping Use: Never Used Second Hand Smoke Exposure: No Substance Use Type: Heroin service: No Current occupational status: employed Current occupation: [employer] Cognitive needs: No Hearing needs: No Vision needs: No Assessment & Plan Assessment & Plan (1) OAB (overactive bladder): Code(s): N32.81 - Overactive bladder Plan: Schedule bladder Botox injection 100 units. Telehealth Telehealth Location of provider rendering services: practice address Location of patient: address on file Patient Identification confirmed using: Name, : Yes Telehealth method: voice only Patient verbally consented to treatment: Yes Patient verbally consented to billing insurance company: Yes Patient informed of any privacy concerns related to visit: Yes Minutes spent on Phone/Video with Pt.: 18 Coding Level of Care Code Tele Est Pt Level 4 (93913) Diagnoses OAB (overactive bladder) N32.81
== END 2023-06-03 13:24 | disposition home or self-care (01) ==
LOC: HO.HUSH 08:35
PROVIDERS: PCP Nurse Practitioner Family; Visit Provider Urology
DX: N32.81 Overactive bladder (principal)
CPT/HCPCS: 99214

== ENCOUNTER → 2023-06-03 08:35 | Outpatient (BNVA) | payer OTHER, SELFPAY | PROVIDERS: PCP Nurse Practitioner Family; Visit Provider Urology ==

== ENCOUNTER 2023-06-16 13:10 | Outpatient (AMB) | payer OTHER, SELFPAY ==
[2023-06-16 13:21] VITALS: BP 170/90; PULSE 94; TEMP 37.2; O2SAT 96
--- NOTE | 2023-06-16 13:21 | AM.OFFWIN_ITS ---
Intake Vital Signs 06/16/23 13:21 Height 5 ft BMI Reason not done Patient refused/unable BP 170/90 H Blood Pressure Location Lt brachial Position Sitting Pulse 94 Pulse Source Pulse Oximeter Temp 98.9 F Temp Source Temporal Artery Scan Pulse Oximetry (%) 96 Oxygen Delivery Method Room Air Intake Visit Reasons: EP wheezing chest tightness cough Masked in lobby Intake Note: pt is here today for wheezing chest tightness and coughing started wednesday Patient Tobacco Use Status: Current everyday Tobacco user Allergies omeprazole [From PRILOSEC] Allergy (Severe, Verified 06/16/23 13:21) ANAPHYLAXIS lansoprazole [Prevacid] Allergy (Unknown, Verified 06/16/23 13:21) anaphylaxis Do you need a note to return to daycare/school/sports/work: Yes HPI HPI Comments History of Present Illness Details 57 y/o female patient who presents to [facility] in clinic with c/o chest tightness, wheezing, cough and SOB x 4 days. H/o COPD, currently on Inhalers daily. Denies fevers, chills, nausea or vomiting. PFSH Medical History COPD (chronic obstructive pulmonary disease) Exercise hypoxemia Nicotine dependence, cigarettes, uncomplicated Dyslipidemia Obesity History of sepsis Urinary frequency Anxiety associated with depression Bilateral hip pain Lower back pain Somatic dysfunction of left sacroiliac joint Surgical History History of section Family History Father Substance use disorder Mother Substance use disorder Mental health disorder Maternal Grandmother Substance use disorder Mental health disorder Social History Household Members: Spouse and Friend(s) Housing: House Do you presently have visiting nurse or other home services: No Alcohol intake: current Alcohol intake frequency: holidays/special occasions only Patient Tobacco Use Status: Current everyday Tobacco user Tobacco use type: Cigarette Cigarette Packs Per Day: 1 Cigarettes Per Day: 20.0 Years Smoked: (onset 23yo, 1ppd x 34yrs, 30pyh) e-Cigarette/Vaping Use: Never Used Second Hand Smoke Exposure: No Substance Use Type: Heroin service: No Current occupational status: employed Current occupation: [employer] Cognitive needs: No Hearing needs: No Vision needs: No Review of Systems Const All systems reviewed & are unremarkable except as noted in HPI and below Physical Exam Vital Signs: Last Vital Signs Temp 98.9 F 06/16/23 13:21 Pulse 94 06/16/23 13:21 BP 170/90 H 06/16/23 13:21 Pulse Ox 96 06/16/23 13:21 Oxygen Delivery Method Room Air 06/16/23 13:21 Const General: comfortable and no acute distress Nutritional Appearance: obese Orientation/consciousness: patient oriented x3 HEENT Head: Yes normocephalic Ears: external ears normal and TM abnormal erythematous bilateral and with fluid behind the TM bilateral General nose exam: Abnormal mucous membranes and turbinates present boggy and erythematous Face and sinus: Yes sinuses nontender Mouth: moist mucous membranes Throat: Yes posterior oropharynx normal Resp Effort & Inspection: normal respiratory effort, able to speak in complete sentences and Actively coughing Auscultation: no crackles, no rales, rhonchi and wheezes scattered wheezes Cardio Rate: regular rate Neuro General: patient oriented x3 Office Procedures Nebulizer Treatment Nebulizer Treatment [id number]/MDI RX initial, or Nebulizer Subsequent Treatment Office Meds ipratropium 0.5 mg-albuterol 3 mg (2.5 mg base)/3 mL nebulization soln Performing Provider: Yuridia Elizalde NP Performing Location: [facility] Administered by: Yuridia Elizalde NP on 06/16/23 14:10 Dose Route Admin Location Dispensed Lot Number Expiration Date [facility] Dog Handler Or Trainer 3 mL inhalation office 3 mL [id number] 01/11/24 0335-5996-14 [facility] Assessment & Plan Assessment & Plan (1) COPD exacerbation: Code(s): J44.1 - Chronic obstructive pulmonary disease with (acute) exacerbation Plan: - Neb Tx in office, wheezing improved - Prednisone x 5 days - will Hold Abx for now, pending SARs results. - Will call Patient with results - Sent Neb 3 ml to pharmacy Orders: Orders SARS-CoV2/FLU/RSV Today J44.1 - Chronic obstructive pulmonary disease with (acute) exacerbation, R09.89 - Other specified symptoms and signs involving the circulatory and respiratory systems AMB Nebulizer Treatment Today J44.1 - Chronic obstructive pulmonary disease with (acute) exacerbation Medications: New prednisone 50 mg PO DAILY 5 tabs 0RF wheezing 5 days J44.1 - Chronic obstructive pulmonary disease with (acute) exacerbation ipratropium-albuterol 0.5 mg-3 mg(2.5 mg base)/3 mL 3 mL inhalation Q4-6H PRN 90 mL 0RF wheezing J44.1 - Chronic obstructive pulmonary disease with (acute) exacerbation Coding Level of Care Code Est Pt Level 3 (44805) Diagnoses COPD exacerbation J44.1 CPT Codes Nebulizer Treatment - Nebulizer Treatment, initial or subsequent: 46441- Nebulizer/MDI RX initial, or Nebulizer Subsequent Treatment ([id number]) Time Spent (min) 15
== END 2023-06-16 14:18 | disposition home or self-care (01) ==
PROVIDERS: PCP Nurse Practitioner Family; Visit Provider Nurse Practitioner Family
DX: J44.1 Chronic obstructive pulmonary disease with (acute) exacerbation (principal)
CPT/HCPCS: 94640; 99213; J7620

== ENCOUNTER 2023-06-16 13:55 | Outpatient (REF) | payer OTHER, SELFPAY ==
[2023-06-16 17:34] LABS: Influenza A PCR NEGATIVE (Negative); Influenza B PCR NEGATIVE (Negative); Resp Syncy Virus RNA Qual PCR NEGATIVE (Negative); SARS COV2 PCR INHOUSE NEGATIVE (Negative)
== END 2023-06-16 13:56 | disposition home or self-care (01) ==
LOC: HO.LAB 13:55
PROVIDERS: Visit Provider Nurse Practitioner Family
DX: Z11.52 Encounter for screening for COVID-19 (principal); Z20.822 Contact with and (suspected) exposure to COVID-19; J44.1 Chronic obstructive pulmonary disease with (acute) exacerbation; R09.89 Other specified symptoms and signs involving the circulatory and respiratory systems
CPT/HCPCS: 0241U

== ENCOUNTER 2023-06-21 12:38 | Outpatient (REF) | payer OTHER, SELFPAY ==
[2023-06-21 16:18] LABS: MANUAL DIFF FLAG NO
[2023-06-21 16:24] LABS: Basophils Percent Auto 0.2 % (0-2); Eosinophils Absolute Auto 0.1 X10*3/uL (0.0-0.4); Eosinophils Percent Auto 0.6 % (0-4); Hemoglobin 15.1 g/dl (12.0-16.0); Imm Gran Abs Auto 0.07 X10*3/uL (0.00-0.03); Imm Gran Pct Auto 0.8 % (0.0-0.4); Lymphocytes Absolute Auto 1.3 X10*3/uL (1.2-4.9); Lymphocytes Percent Auto 15.1 % (20-40); Mean Corpuscular HGB Conc 32.1 g/dl (31.0-35.0); Mean Corpuscular Hemoglobin 30.1 pg (27.0-33.0); Mean Corpuscular Volume 93.6 fL (80.0-98.0); Mean Platelet Volume 9.1 fL (9.4-12.3); Monocytes Absolute Auto 0.3 X10*3/uL (0.1-1.2); Monocytes Percent Auto 3.4 % (2-11); Neutrophils Percent Auto 79.9 % (45-73); Platelet Count 299 X10*3/uL (160-400); Red Blood Count 5.02 X10*6/uL (4.20-5.50); Red Cell Distribution Width 14.1 % (11.0-16.0); White Blood Count 8.7 X10*3/uL (4.8-10.8)
[2023-06-21 16:45] LABS: Alanine Aminotransferase 20 U/L (0-31); Albumin Level 4.2 g/dL (3.5-5.0); Alkaline Phosphatase 84 U/L (39-117); Anion Gap 13 (12-20); Aspartate Amino Transferase 19 U/L (5-31); Bilirubin Total 0.4 mg/dL (0.0-1.0); Blood Urea Nitrogen 17 mg/dL (9-16); Calcium 9.6 mg/dL (8.4-10.2); Carbon Dioxide 29 mmol/L (22-29); Chloride 105 mmol/L (96-108); Cholesterol 203 mg/dL (<200); Estimated Glomerular Filt Rate > 60; Glucose Fasting 122 mg/dL (60-99); HDL Cholesterol 60 mg/dL (>40); LDL Cholesterol Calculated 124 mg/dL (<100); Potassium 4.5 mmol/L (3.3-5.1); Sodium 142 mmol/L (135-145); Total Protein 6.9 g/dL (6.5-8.0); Triglycerides 96 mg/dL (<150)
[2023-06-21 17:02] LABS: TSH reflex Free T4 1.41 uIU/mL (0.32-4.0); Vitamin D 25-OH Total 71.3 ng/mL (>30)
== END 2023-06-21 12:39 | disposition home or self-care (01) ==
LOC: HO.HMGCLDS 12:38
PROVIDERS: PCP Nurse Practitioner Family; Visit Provider Nurse Practitioner Family
DX: Z00.00 Encounter for general adult medical examination without abnormal findings (principal); Z13.6 Encounter for screening for cardiovascular disorders; E55.9 Vitamin D deficiency, unspecified
CPT/HCPCS: 36415; 80053; 80061; 82306; 84443; 85025

== ENCOUNTER 2023-06-21 15:41 | Outpatient (AMB) | payer OTHER, SELFPAY ==
[2023-06-21 15:43] VITALS: BP 126/74; PULSE 109; O2SAT 93
--- NOTE | 2023-06-21 15:43 | MHC.PC.OV ---
Vital Signs 06/21/23 15:43 Height 5 ft BMI Reason not done Patient refused/unable BP 126/74 Blood Pressure Location Lt brachial Position Sitting Pulse 109 H Pulse Source Pulse Oximeter Pulse Oximetry (%) 93 Intake Visit Reasons: 6 Month follow up Intake Note: pt is here for 6 month follow up Dipper And Drier Required: No Accompanied by: Self / Same As Patient Allergies omeprazole [From PRILOSEC] Allergy (Severe, Verified 06/21/23 15:44) ANAPHYLAXIS lansoprazole [Prevacid] Allergy (Unknown, Verified 06/21/23 15:44) anaphylaxis Medication List - Last Reconciled 06/21/23 by Ezra Zuñiga COMMUNITY SPORTS COORDINATOR- azithromycin For 250 mg dose pack: take 500 mg today (day 1), then 250 mg for 4 days (days 2-5) PO buprenorphine-naloxone 4-1 mg (Suboxone) 1 film sublingual DAILY clonidine HCl 0.1 mg PO BID xlxlibwfqij-xeifbeuaq-ndzoinli 200-62.5-25 mcg (Trelegy Ellipta) 1 inh inhalation DAILY gabapentin 600 mg (2 x 300 mg) PO TID 30 days ipratropium-albuterol 0.5 mg-3 mg(2.5 mg base)/3 mL 3 mL inhalation Q4-6H PRN nicotine 1 patch transdermal Q24H 28 days prednisone 50 mg PO DAILY 6 days venlafaxine ER 150 mg PO BID Tobacco use date assessed: 06/21/23 Dental Screening Dental Screen Date: 06/21/23 Did you have a dental visit in the last 12 months?: Yes Did you have a dental problem in the last 6 months where you did not have access to dental care?: No Was dental information given to patient?: Patient has dentist HPI 6 Month follow up HPI Details Pt was seen in the walk-in on 06/15 c/o chest tightness, wheezing, cough, and shortness of breath. Pt was given a nebulizer treatment in office. COVID/flu/RSV swab was negative. Pt was given prednisone. Pt reports ongoing raspy voice, cough, and chest congestion. She has COPD. Will send prednisone, zpak, and trelegy. Pt knows not to start trelegy until she finished prednisone and zpak. She continues to smoke and has never tried to quit. Will send nicotine patches. 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 Denies fever, chills, and dizziness. [facility] Medical History COPD (chronic obstructive pulmonary disease) Exercise hypoxemia Nicotine dependence, cigarettes, uncomplicated Dyslipidemia Obesity History of sepsis Urinary frequency Anxiety associated with depression Bilateral hip pain Lower back pain Somatic dysfunction of left sacroiliac joint Surgical History History of section Family History Father Substance use disorder Mother Substance use disorder Mental health disorder Maternal Grandmother Substance use disorder Mental health disorder Social History Household Members: Spouse and Friend(s) Housing: House Do you presently have visiting nurse or other home services: No Alcohol intake: current Alcohol intake frequency: holidays/special occasions only Patient Tobacco Use Status: Current everyday Tobacco user Tobacco use type: Cigarette Cigarette Packs Per Day: 1 Cigarettes Per Day: 20.0 Years Smoked: (onset 23yo, 1ppd x 34yrs, 30pyh) e-Cigarette/Vaping Use: Never Used Second Hand Smoke Exposure: No Substance Use Type: Heroin service: No Current occupational status: employed Current occupation: [employer] Cognitive needs: No Hearing needs: No Vision needs: No Questionnaire PHQ-9 Over the last 2 weeks, how often have you been bothered by any of the following problems? 1. Little interest or pleasure in doing things: several days 2. Feeling down, depressed, or hopeless: several days 3. Trouble falling or staying asleep, or sleeping too much: nearly every day 4. Feeling tired or having little energy: nearly every day 5. Poor appetite or overeating: nearly every day 6. Feeling bad about yourself - or that you are a failure or have let yourself or your family down: not at all 7. Trouble concentrating on things, such as reading the newspaper or watching television: nearly every day 8. Moving or speaking so slowly that other people could have noticed. Or the opposite - being so fidgety or restless that you have been moving around a lot more than usual: not at all 9. Thoughts that you would be better off or of hurting yourself in some way: not at all Total score: 14 Depression Screening Interpretation: Positive Depression Screening Follow-up: Existing condition and Declines treatment Depression Screening Done: Yes Source: Developed by Drs. Neel Lazaro, Antonio Thomas and colleagues, with an educational willie from [email or web address]. Thrive Questionnaire Date Thrive assessed: 10/07/21 DAI-7 AMB Questionnaire DAI-7 Date DAI - 7 assessed: 04/27/22 Source: Developed by Drs. Neel Lazaro, Marilee Stanley, Antonio Rodriguez and colleagues, with an educational willie from [email or web address]. Review of Systems Const Reports as per HPI Physical exam (Primary Care) Vital Signs: Last Vital Signs Pulse 109 H 06/21/23 15:43 BP 126/74 06/21/23 15:43 Pulse Ox 93 06/21/23 15:43 Tobacco/Smoking Status: Tobacco use Status Tobacco use date assessed 06/21/23 06/21/23 15:45 Patient Tobacco Use Status Current everyday Tobacco 06/21/23 15:43 Tobacco use type Cigarette 06/21/23 15:43 e-Cigarette/Vaping Use Never Used 06/21/23 15:43 PHQ-9: PHQ-9 Score PHQ-9: Total score 14 06/21/23 16:10 Depression Screening Interpretation: Positive Depression Screening Follow-up: Existing condition and Declines treatment Thrive Assessment: Date of Thrive Assessment Date Thrive assessed 10/07/21 06/21/23 15:43 Const General: cooperative Orientation/consciousness: patient oriented x3 Resp Other: raspy voice Effort & Inspection: able to speak in complete sentences and Actively coughing Auscultation: wheezes throughout Cardio Rate: regular rate Rhythm: regular rhythm Heart sounds: S1 normal heart sound present, S2 normal heart sound present and no murmurs Neuro General: patient oriented x3 Psych Appearance: grossly normal Mental Status: mental status grossly normal Speech and movement: Normal speech and movement present Affect: normal affect Attitude: cooperative Thought process: Normal thought process present Thought content: Normal thought content present Insight: Good insight present (Psych) Judgement: Good judgement present (Psych) Assessment and Plan Assessment & Plan (1) COPD (chronic obstructive pulmonary disease): Code(s): J44.9 - Chronic obstructive pulmonary disease, unspecified Plan: trelegy sent, prednisonekatie. (2) Nicotine dependence, cigarettes, uncomplicated: Comment: (Current smoker - onset 23yo, 1ppd x 34yrs, 30pyh) Code(s): F17.210 - Nicotine dependence, cigarettes, uncomplicated Plan: nicotine patches sent Plan The patient agreed to the use of a medical malpractice paralegal for this encounter. Scribed for DAVE Naranjo by Scarlett Sabillon medical malpractice paralegal, on 06/21/2023 at 16:20 EST. Medications: New azithromycin For 250 mg dose pack: take 500 mg today (day 1), then 250 mg for 4 days (days 2-5) PO 6 tabs 0RF brlbwoehtwz-aazuxindg-myhjvxyp 200-62.5-25 mcg (Trelegy Ellipta) 1 inh inhalation DAILY 60 ea 0RF Changed From prednisone 50 mg PO DAILY 5 days 5 tabs 0RF wheezing J44.1 - Chronic obstructive pulmonary disease with (acute) exacerbation To prednisone 50 mg PO DAILY 6 tabs 0RF wheezing 6 days J44.1 - Chronic obstructive pulmonary disease with (acute) exacerbation Refilled ipratropium-albuterol 0.5 mg-3 mg(2.5 mg base)/3 mL 3 mL inhalation Q4-6H PRN 90 mL 0RF wheezing J44.1 - Chronic obstructive pulmonary disease with (acute) exacerbation nicotine 1 patch transdermal Q24H 28 ea 2RF SMOKING 28 days Coding Level of Care Code Est Pt Level 3 (52707) Diagnoses COPD (chronic obstructive pulmonary disease) J44.9 Nicotine dependence, cigarettes, uncomplicated F17.210
== END 2023-06-21 17:00 | disposition home or self-care (01) ==
PROVIDERS: PCP Nurse Practitioner Family; Visit Provider Nurse Practitioner Family
DX: J44.9 Chronic obstructive pulmonary disease, unspecified (principal); F17.210 Nicotine dependence, cigarettes, uncomplicated
CPT/HCPCS: 99213

== ENCOUNTER 2023-08-06 13:37 | Outpatient (AMB) | payer OTHER, SELFPAY ==
--- NOTE | 2023-08-06 13:38 | A.OFFVIS_ITS ---
Intake Visit Reasons: BOTOX INJ>APPROVED Intake Note: Patient presents today for a CYSTOSCOPY/BOTOX INJECTION Procedure: Meds: BOTOX Allergies to Antibiotic: No Known Allergies Blood Thinner: None Urinalysis test clear for Cysto? YES Disposable Uro-N Cystoscope Injection Cannula: Lot: [id number] Exp: 03/04/2026 Circuit Breaker Supervisor Required: No Accompanied by: Self / Same As Patient Allergies omeprazole [From PRILOSEC] Allergy (Severe, Verified 08/06/23 13:40) ANAPHYLAXIS lansoprazole [Prevacid] Allergy (Unknown, Verified 08/06/23 13:40) anaphylaxis Medication List - Last Reconciled 08/06/23 by Jax Navarro MD azithromycin For 250 mg dose pack: take 500 mg today (day 1), then 250 mg for 4 days (days 2-5) PO buprenorphine-naloxone 4-1 mg (Suboxone) 1 film sublingual DAILY ciprofloxacin HCl 500 mg PO BID clonidine HCl 0.1 mg PO BID pnbpuehpiki-hzrgtumeh-softpycj 200-62.5-25 mcg (Trelegy Ellipta) 1 inh inhalation DAILY gabapentin 600 mg (2 x 300 mg) PO TID 90 days ipratropium-albuterol 0.5 mg-3 mg(2.5 mg base)/3 mL 3 mL inhalation Q4-6H PRN nicotine 1 patch transdermal Q24H 28 days phenazopyridine (Pyridium) 200 mg PO Q8H prednisone 50 mg PO DAILY 6 days venlafaxine ER 150 mg PO BID HPI Comments Details: Rody presents today for cystoscopy bladder Botox injections Cystoscopy bladder Botox injection 100 units performed, no complications. The patient tolerated well. See below for details. Plan continue Cipro to complete 5 day course. Pyridium for 2 days. Follow Up nursing in 3 weeks to check PVR. Follow-up with me in 3 months. [facility] Medical History COPD (chronic obstructive pulmonary disease) Exercise hypoxemia Nicotine dependence, cigarettes, uncomplicated Dyslipidemia Obesity History of sepsis Urinary frequency Anxiety associated with depression Bilateral hip pain Lower back pain Somatic dysfunction of left sacroiliac joint Surgical History History of section Family History Father Substance use disorder Mother Substance use disorder Mental health disorder Maternal Grandmother Substance use disorder Mental health disorder Social History Household Members: Spouse and Friend(s) Housing: House Do you presently have visiting nurse or other home services: No Alcohol intake: current Alcohol intake frequency: holidays/special occasions only Patient Tobacco Use Status: Current everyday Tobacco user Tobacco use type: Cigarette Cigarette Packs Per Day: 1 Cigarettes Per Day: 20.0 Years Smoked: (onset 23yo, 1ppd x 34yrs, 30pyh) e-Cigarette/Vaping Use: Never Used Second Hand Smoke Exposure: No Substance Use Type: Heroin service: No Current occupational status: employed Current occupation: [employer] Cognitive needs: No Hearing needs: No Vision needs: No Review of Systems Const All systems reviewed & are unremarkable except as noted in HPI and below Reports no additional complaints Eyes Reports no additional complaints ENT Reports no additional complaints Card Reports no additional complaints Resp Reports no additional complaints GI Reports no additional complaints Reports as per HPI Musc Reports no additional complaints Skin/Breast Reports system reviewed and no additional complaints, except as documented Neuro Reports no additional complaints Psych Reports no additional complaints Endo Reports no additional complaints Corey/Lymph Reports no additional complaints Aller/Immun Reports no additional complaints Office Procedures Cystoscopy Consent Discussed risk and benefit or proposed procedure with the patient. Information consent for procedure given to the patient. Discussed technical aspects, risks, benefits and alternatives in full. Addressed all of the patient's questions and concerns regarding the procedure. The patient demonstrated knowledge and understanding. They wish to proceed with this procedure. Preparation The patient was prepped in the usual manner. A biofuels manager was present and in the room. Genitalia was prepped with betadine solution in a sterile manner. Lidocaine Jelly 2% was placed into the urethra and 16Fr flexible Olympus cystoscope was inserted into the meatus after adequate lubrication. Procedure patient given botox prep cocktail containing 20mls bupivicaine 0.50%, 5mls lidocaine 2%, 2 lidocaine urojets. Bladder emptied via straight cath 14fr, then instilled botox prep cocktail through catheter. Dr. Maria to room to do botox injection. PROCEDURE: CYSTOSCOPY, BLADDER BOTOX INJECTION 100 UNITS The flexible cystoscope was placed transurethrally into the bladder. The right and left ureteral orifices were visualized. There were moderate trabeculations noted. There were no suspicious bladder lesions seen. The Botox 100 units was mixed with 10 cc of normal saline and injected transurethrally 1/2 cc to 1 cc per injection into the posterior bladder wall. The cystoscope was removed. The patient tolerated the procedure well. [id number] [id number] - Botox Injection, urethra or bladder DISPOSABLE SCOPE URO-N NEEDLE SCOPE Procedure code (CPT) selection complete Office Meds lidocaine HCl 2 % mucosal jelly in applicator Performing Provider: Jax Navarro MD Performing Location[place] [facility] Administered by: Caio Newton LPN on 08/06/23 13:59 Dose Route Admin Location Dispensed Lot Number Expiration Date [facility] [employer] 10 mL intra-urethral 20 mL onabotulinumtoxinA 100 unit solution for injection Performing Provider: Jax Navarro MD Performing Location: [facility] Administered by: Caio Newton LPN on 08/06/23 13:59 Dose Route Admin Location Dispensed Lot Number Expiration Date [facility] [employer] 100 unit transurethral 1 ea naproxen 500 mg tablet Performing Provider: Jax Navarro MD Performing [place] [facility] Administered by: Caio Newton LPN on 08/06/23 13:59 Dose Route Admin Location Dispensed Lot Number Expiration Date [facility] [employer] 500 mg PO 1 tab ciprofloxacin HCl 500 mg tablet Performing Provider: Jax Navarro MD Performing Location: [facility] Administered by: Caio Newton LPN on 08/06/23 13:59 Dose Route Admin Location Dispensed Lot Number Expiration Date [facility] [employer] 500 mg PO 1 tab Results AMB Urinalysis, Automated UA Leukoctes 15 Jenny/uL Last Edit by Shyanne Schuler Keren on 08/06/23 13:54 UA Nitrite Negative Last Edit by Shyanne Schuler [facility] on 08/06/23 13:54 UA Urobilinogen 0.2 mg/dL Last Edit by Shyanne Schuler A on 08/06/23 13:5 4 UA Protein 100 mg/dL Last Edit by Shyanne Schuler [facility] on 08/06/23 13:54 2+ Shyanne Schuler 08/06/23 13:54 UA pH 5.5 Last Edit by Shyanne Schuler [facility] on 08/06/23 13:54 UA Blood 0 Lucius/uL Last Edit by Shyanne Schuler [facility] on 08/06/23 13:54 UA Specific Nelson 1.030 Last Edit by Shyanne Schuler [facility] on 08/06/23 13: 54 UA Ketone Positive Last Edit by Shyanne Schuler [facility] on 08/06/23 13:54 UA Bilirubin 1 mg/dL Last Edit by Shyanne Schuler [facility] on 08/06/23 13:54 UA Glucose 0 mg/dL Last Edit by Shyanne Schuler [facility] on 08/06/23 13:54 Results Reviewed Results Reviewed: Laboratory Last Values Urine pH (Auto) 5.5 08/06/23 13:53 Specific Nelson (Auto) 1.030 08/06/23 13:53 Urine Protein (Auto) 100 mg/dL 08/06/23 13:53 Glucose (UA)(Auto) 0 mg/dL 08/06/23 13:53 Urine Ketones (Auto) Positive 08/06/23 13:53 Urine Blood (Auto) 0 Lucius/uL 08/06/23 13:53 Urine Nitrite (Auto) Negative 08/06/23 13:53 Urine Bilirubin (Auto) 1 mg/dL 08/06/23 13:53 Urine Urobilinogen (Auto) 0.2 mg/dL 08/06/23 13:53 Leukocyte Esterase (Auto) 15 Jenny/uL 08/06/23 13:53 Assessment & Plan Assessment & Plan (1) OAB (overactive bladder): Code(s): N32.81 - Overactive bladder Category: Medical Plan continue Cipro to complete 5 day course. Pyridium for 2 days. Follow Up nursing in 3 weeks to check PVR. Follow-up with me in 3 months. Orders: Orders AMB Urinalysis Automated 08/06/23 Z13.9 - Encounter for screening, unspecified AMB Cystoscopy 08/06/23 N32.81 - Overactive bladder, N39.45 - Continuous leakage Medications: New phenazopyridine (Pyridium) 200 mg PO Q8H 10 tabs 0RF Urinary burning, urinary pain ciprofloxacin HCl Start 1st dose this evening. 500 mg PO BID 9 tabs 0RF Discontinued ktigoomqang-xlqhsrkqb-lftyyzos 200-62.5-25 mcg Discontinued Reason: Insurance Denied 1 inh inhalation DAILY 60 ea 0RF Patient Instructions: The patient had an opportunity to ask questions regarding treatment plan. The patient expressed understanding and agreement with the above treatment plan. The patient is aware they should contact our office by phone for worsening of their current condition or the appearance of new symptoms. Compliance is encouraged with any medications and followup testing that is ordered. It is a privilege to be allowed the opportunity to participate in the urologic care of your patient. If you have any questions or concerns regarding treatment for the above conditions please do not hesitate to contact me. The office telephone contact is [phone]. This note is constructed in part using voice recognition software. While every effort has been made to ensure accuracy sandwich machine operator errors may have been included. Yours sincerely, Jax Navarro MD Coding Level of Care Code Procedure Only Diagnoses OAB (overactive bladder) N32.81 CPT Codes Cystoscopy - CPT: 89395-Ubjuusjfxm ([id number]) Cystoscopy - CPT: 32159 - Botox Injection, urethra or bladder ([id number])
== END 2023-08-06 14:58 | disposition home or self-care (01) ==
PROVIDERS: PCP Nurse Practitioner Family; Visit Provider Urology
DX: N32.81 Overactive bladder (principal); N39.45 Continuous leakage; Z13.9 Encounter for screening, unspecified
CPT/HCPCS: 52287

== ENCOUNTER → 2023-08-06 13:37 | Outpatient (BNVA) | payer OTHER, SELFPAY | PROVIDERS: PCP Nurse Practitioner Family; Visit Provider Urology | DX: N32.81 Overactive bladder (principal) | CPT/HCPCS: 52287; 81003; J0585 ==

== ENCOUNTER 2023-09-07 13:57 | Outpatient (AMB) | payer OTHER, SELFPAY ==
[2023-09-07 15:31] VITALS: BP 130/76; PULSE 78; TEMP 36.6; O2SAT 93
--- NOTE | 2023-09-07 15:31 | AM.OFFWIN_ITS ---
Intake Vital Signs 09/07/23 15:31 Height 5 ft BMI Reason not done Patient refused/unable BP 130/76 Blood Pressure Location Rt brachial Position Sitting Pulse 78 Pulse Source Pulse Oximeter Temp 97.8 F Temp Source Oral Pulse Oximetry (%) 93 Intake Visit Reasons: EP RT side pain from hip down [phone] Intake Note: pt is here for right side pain from hip down Patient Tobacco Use Status: Current everyday Tobacco user Allergies omeprazole [From PRILOSEC] Allergy (Severe, Verified 09/07/23 15:50) ANAPHYLAXIS lansoprazole [Prevacid] Allergy (Unknown, Verified 09/07/23 15:50) anaphylaxis Medication List - Last Reconciled 09/07/23 by Alfonzo Jamison MD wrrywtehbu-brmjowak-vuzsqpitpw 160-9-4.8 mcg/actuation (Breztri Aerosphere) 2 inhalations inhalation BID buprenorphine-naloxone 4-1 mg (Suboxone) 1 film sublingual DAILY clonidine HCl 0.1 mg PO BID gabapentin 600 mg (2 x 300 mg) PO TID 90 days ipratropium-albuterol 0.5 mg-3 mg(2.5 mg base)/3 mL 3 mL inhalation Q4-6H PRN nicotine 1 patch transdermal Q24H 28 days venlafaxine ER 150 mg PO BID Do you need a note to return to daycare/school/sports/work: Yes HPI EP RT side pain from hip down [phone] HPI Details 58-year-old female presents to the [facility] for a sick visit. Patient is reporting pain in the right hip radiating down to the leg. Symptoms present for the past few days. No history of fall or injury. History of sciatica in the past. [facility] Medical History COPD (chronic obstructive pulmonary disease) Exercise hypoxemia Nicotine dependence, cigarettes, uncomplicated Dyslipidemia Obesity History of sepsis Urinary frequency Anxiety associated with depression Bilateral hip pain Lower back pain Somatic dysfunction of left sacroiliac joint Surgical History History of section Family History Father Substance use disorder Mother Substance use disorder Mental health disorder Maternal Grandmother Substance use disorder Mental health disorder Social History Household Members: Spouse and Friend(s) Housing: House Do you presently have visiting nurse or other home services: No Alcohol intake: current Alcohol intake frequency: holidays/special occasions only Patient Tobacco Use Status: Current everyday Tobacco user Tobacco use type: Cigarette Cigarette Packs Per Day: 1 Cigarettes Per Day: 20.0 Years Smoked: (onset 23yo, 1ppd x 34yrs, 30pyh) e-Cigarette/Vaping Use: Never Used Second Hand Smoke Exposure: No Substance Use Type: Heroin service: No Current occupational status: employed Current occupation: [employer] Cognitive needs: No Hearing needs: No Vision needs: No Physical Exam Vital Signs: Last Vital Signs Temp 97.8 F 09/07/23 15:31 Pulse 78 09/07/23 15:31 BP 130/76 09/07/23 15:31 Pulse Ox 93 09/07/23 15:31 Const General: cooperative and healthy appearing Nutritional Appearance: well nourished Orientation/consciousness: patient oriented x3 Limitations: no limitations HEENT Head: Yes normal to inspection Eyes General: appearance normal, both eyes and all related structures Neck Neck: Yes normal visual inspection Chest Chest palpation & inspection: normal palpation of entire chest wall Resp Effort & Inspection: normal respiratory effort General: Yes no CVA tenderness Back/Spine/Pelvis Other: No spinal or paraspinal spasm. Right leg on external rotation causes spasm in the adductors. Back: no CVA tenderness Neuro General: patient oriented x3 Office Meds ketorolac 60 mg/2 mL intramuscular solution Performing Provider: Alfonzo Jamison MD Performing Location: [facility] [place] [facility] Administered by: Stacie Almaguer on 09/07/23 16:05 Dose Route Admin Location Dispensed Lot Number Expiration Date NDC Ledger Poster 60 mg IM 2 mL [id number] 03/12/24 7693-8022-70 [employer] Assessment & Plan Assessment & Plan (1) Low back pain: Code(s): M54.50 - Low back pain, unspecified Plan: Toradol injection given. Cyclobenzaprine and anti-inflammatory called in. Patient was advised rest. Orders: Orders AMB Ketorolac Injection 09/07/23 M54.50 - Low back pain, unspecified Medications: New cyclobenzaprine 10 mg PO BEDTIME 14 tabs 0RF meloxicam 15 mg PO DAILY 14 tabs 0RF Coding Level of Care Code Est Pt Level 4 (54276) Diagnoses Low back pain M54.50
== END 2023-09-07 16:50 | disposition home or self-care (01) ==
PROVIDERS: PCP Nurse Practitioner Family; Visit Provider Internal Medicine
DX: M54.50 Low back pain, unspecified (principal)
CPT/HCPCS: 96372; 99214; J1885

== ENCOUNTER 2023-09-18 13:24 | Outpatient (AMB) | payer OTHER, SELFPAY ==
[2023-09-18 13:34] VITALS: BP 130/80; PULSE 92; TEMP 36.6; O2SAT 94
--- NOTE | 2023-09-18 13:34 | AM.OFFWIN_ITS ---
Intake Vital Signs 09/18/23 13:34 Height 5 ft BP 130/80 Blood Pressure Location Rt brachial Position Sitting Pulse 92 Pulse Source Pulse Oximeter Temp 97.8 F Temp Source Oral Pulse Oximetry (%) 94 Oxygen Delivery Method Room Air Intake Visit Reasons: EP RT Butt/leg/groin/calf pain Intake Note: pt is here for again for back pain, pt stats the prednisone and meloxicam didnt help Patient Tobacco Use Status: Current everyday Tobacco user Allergies omeprazole [From PRILOSEC] Allergy (Severe, Verified 09/18/23 13:44) ANAPHYLAXIS lansoprazole [Prevacid] Allergy (Unknown, Verified 09/18/23 13:44) anaphylaxis Do you need a note to return to daycare/school/sports/work: No HPI EP RT Butt/leg/groin/calf pain HPI Details Patient is a 58-year-old female who comes the walk-in clinic complaining of acute flare-up of chronic sacroiliitis/sciatica symptoms. She reports that for no known reason her symptoms flared up about a week and a half ago. She has pain to her right buttock which travels down the lateral side of her leg, and radiates into her right groin. She describes it as a sharp pressure sensation. It makes walking difficult, and moving the right leg at all. 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 She has no numbness or tingling or weakness to the extr emity. She does not have a history of back pain or issues other than the sacroiliac joints. She reports both of her hips have been imaged in the past and have been normal. She reports doing a course of physical therapy for her left sacroiliac joint in the past with some improvement of symptoms, however she got sick before she was able to complete a full month of treatment. She reports that she has attempted to do the stretches and home rehab with her right leg, but is in too much pain to do so. She alternates with icing and heating for the low back. No acute or repetitive trauma noted. [facility] Medical History COPD (chronic obstructive pulmonary disease) Exercise hypoxemia Nicotine dependence, cigarettes, uncomplicated Dyslipidemia Obesity History of sepsis Urinary frequency Anxiety associated with depression Bilateral hip pain Lower back pain Somatic dysfunction of left sacroiliac joint Surgical History History of section Family History Father Substance use disorder Mother Substance use disorder Mental health disorder Maternal Grandmother Substance use disorder Mental health disorder Social History Household Members: Spouse and Friend(s) Housing: House Do you presently have visiting nurse or other home services: No Alcohol intake: current Alcohol intake frequency: holidays/special occasions only Patient Tobacco Use Status: Current everyday Tobacco user Tobacco use type: Cigarette Cigarette Packs Per Day: 1 Cigarettes Per Day: 20.0 Years Smoked: (onset 23yo, 1ppd x 34yrs, 30pyh) e-Cigarette/Vaping Use: Never Used Second Hand Smoke Exposure: No Substance Use Type: Heroin service: No Current occupational status: employed Current occupation: [employer] Cognitive needs: No Hearing needs: No Vision needs: No Review of Systems Const All systems reviewed & are unremarkable except as noted in HPI and below Physical Exam Vital Signs: Last Vital Signs Temp 97.8 F 09/18/23 13:34 Pulse 92 09/18/23 13:34 BP 130/80 09/18/23 13:34 Pulse Ox 94 09/18/23 13:34 Oxygen Delivery Method Room Air 09/18/23 13:34 Const General: cooperative, healthy appearing, comfortable, no acute distress, alert, awake, Physically active and well groomed; No anxious, diaphoretic, ill appearing, intoxicated appearing, poor hygiene or tired appearing Nutritional Appearance: average body habitus Limitations: no limitations Resp Effort & Inspection: normal respiratory effort Cardio Rate: regular rate Back/Spine/Pelvis Sacroiliac joints: on the right tender to palpation, by compression of iliac crest and by passive hyperextension of lower ext and on the left nontender Skin Other: Good color, warm and dry Extrem Other: Right leg has decreased range of motion due to pain. Intact posterior tibialis pulse Psych Appearance: grossly normal Mental Status: mental status grossly normal Speech and movement: Normal speech and movement present Affect: normal affect Attitude: cooperative Thought process: Normal thought process present Insight: Good insight present (Psych) Judgement: Good judgement present (Psych) Assessment & Plan Assessment & Plan (1) Sacroiliitis: Code(s): M46.1 - Sacroiliitis, not elsewhere classified Plan: Patient with apparent right sacroiliitis, which has been an issue for her in the past, along with the left side. She reports that she flared up recently for unknown reason, about a week and a half ago. [id number] medication with limited relief, and she did a course of prednisone prescribed by her primary care Ezra White here at this practice. She reports that Ezra also wrote her for a course of physical therapy, but she has not been able to get it started yet. She has also been trying to do a follow-up visit with PCP and she does have an appointment in about a month from now. She reports that her pain could not be managed in the meantime however and she was advised to come to the walk-in clinic. She has a history of being allergic to Flexeril, but does respond to tizanidine, so we discussed starting this today, and she hopes to improve in 2 days to be able to get back to work. I also wrote her for a short course of indomethacin, as the oral steroid did somewhat relieve symptoms for her. 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 She should lower the dose as soon as able, and discontinue use when her symptoms are controlled. I printed out the physical therapy order for her so she can call and schedule this herself, per her request. Hopefully she will start to improve by the time she has her primary care follow-up, however we did discuss further options of treatment so that she is aware of them. She was very distressed initially during this visit, but reported that she was relieved afterwards, as she had a plan for follow-up. Medications: New indomethacin Administer with food or milk. Decrease to once a day when symptoms improve. Discontinue use as soon as possible to decrease risk of side effects 25 mg PO BID 14 caps 0RF tizanidine Can increased dose to 2 capsules every 8-12 hours as needed to a maximum dose of 24 mg per day. Do not drive or do safety sensitive work while using this medication 2 mg PO TID PRN 20 caps 0RF muscle spasticity Coding Level of Care Code Est Pt Level 4 (83258) Diagnoses Sacroiliitis M46.1
== END 2023-09-18 15:08 | disposition home or self-care (01) ==
PROVIDERS: PCP Nurse Practitioner Family; Visit Provider Physician Assistant Medical
DX: M46.1 Sacroiliitis, not elsewhere classified (principal)
CPT/HCPCS: 99051; 99214

== ENCOUNTER 2023-09-19 16:59 | Emergency (ER) | payer OTHER, SELFPAY ==
--- NOTE | ~2023-09-19 | XR_ITS ---
EXAMINATION: LUMBOSACRAL SPINE AND RIGHT HIP CLINICAL INFORMATION: Fall with question of fracture COMPARISON: Bilateral hips 03/20/2022 TECHNIQUE: 3 views of the lumbosacral spine, single view pelvis with 2 additional views right hip FINDINGS: Lumbosacral spine: Marked degenerative changes are present throughout the spine with biconvex thoracolumbar scoliosis. Disc space narrowing is present at most levels with some associated endplate sclerosis. No acute fractures or subluxations are seen. No pelvic or hip fracture is seen. Moderate degenerative changes are present in the right hip with superior joint space narrowing. Milder degenerative changes are seen in the left hip. XR/XR lumbar spine 2-3V IMPRESSION: 1. No evidence of an acute osseous injury. 2. Degenerative changes in the spine and hips as described above.
--- NOTE | ~2023-09-19 | XR_ITS ---
EXAMINATION: LUMBOSACRAL SPINE AND RIGHT HIP CLINICAL INFORMATION: Fall with question of fracture COMPARISON: Bilateral hips 03/20/2022 TECHNIQUE: 3 views of the lumbosacral spine, single view pelvis with 2 additional views right hip FINDINGS: Lumbosacral spine: Marked degenerative changes are present throughout the spine with biconvex thoracolumbar scoliosis. Disc space narrowing is present at most levels with some associated endplate sclerosis. No acute fractures or subluxations are seen. No pelvic or hip fracture is seen. Moderate degenerative changes are present in the right hip with superior joint space narrowing. Milder degenerative changes are seen in the left hip. XR/XR hip RT w PEL1V IMPRESSION: 1. No evidence of an acute osseous injury. 2. Degenerative changes in the spine and hips as described above.
[2023-09-19 17:16] VITALS: BP 156/92; PULSE 89; RESP 16; TEMP 36.6; O2SAT 97; BMI 41.2
--- NOTE | 2023-09-19 17:25 | ED_ITS ---
HPI - General Adult General Chief complaint: Back Pain/Injury Stated complaint: excruciating pain, sciatic nerve? Time Seen by Provider: 09/19/23 19:10 Source: patient Mode of arrival: ambulatory Limitations: no limitations History of Present Illness ED Provider: ED provider HPI narrative: 58 yold female with pmh of sciatica, and COpD presents to the ED for right sided gluteal low back pain radiating down right leg. Patient denies any urinary/bowel incontinence. Patient denies any history of IV drug use. Patient states no fever or chills patient denies any abdominal pain Related Data Home Medications ?Medication ?Instructions ?Recorded ?Confirmed buprenorphine 4 mg-naloxone 1 mg 1 film sublingual DAILY 10/30/20 08/06/23 sublingual film (Suboxone) Previous Rx's ?Medication ?Instructions ?Recorded venlafaxine 150 mg 150 mg PO BID #180 caps 06/12/23 capsule,extended release 24 hr ipratropium 0.5 mg-albuterol 3 mg 3 ml inhalation Q4-6H PRN wheezing 06/21/23 (2.5 mg base)/3 mL nebulization #90 mL soln nicotine 21 mg/24 hr daily 1 patch transdermal Q24H SMOKING 06/21/23 transdermal patch 28 days #28 ea Breztri Aerosphere 160 2 inh inhalation BID #32.1 grams 09/16/23 mcg-9mcg-4.8mcg/actuation HFA aerosol inhaler (jyqsggsfsr-ekeihivs-bxzpepkepc) clonidine HCl 0.1 mg tablet 0.1 mg PO BID #180 tabs 09/16/23 gabapentin 300 mg capsule 600 mg (2 x 300 mg) PO TID 90 days 09/16/23 #540 caps indomethacin 25 mg capsule 25 mg PO BID #14 caps 09/18/23 tizanidine 2 mg capsule 2 mg PO TID PRN muscle spasticity 09/18/23 #20 caps ketorolac 10 mg tablet 10 mg PO Q6H PRN pain 5 days #20 09/19/23 tabs tizanidine 4 mg capsule 4 mg PO Q8H PRN muscle spasticity 09/19/23 4 days #12 caps Allergies Allergy/AdvReac Type Severity Reaction Status Date / Time omeprazole [From PRILOSEC] Allergy Severe ANAPHYLAXIS Verified 09/19/23 17:18 lansoprazole [Prevacid] Allergy Unknown anaphylaxis Verified 09/19/23 17:18 cyclobenzaprine Allergy Rash Verified 09/19/23 17:19 [From Flexeril] Review of Systems 2 Review of Systems: Gluteal pain radiating down right leg Yes all other systems are reviewed and are negative [facility] Past Medical History Medical History COPD (chronic obstructive pulmonary disease) Exercise hypoxemia Nicotine dependence, cigarettes, uncomplicated Dyslipidemia Obesity History of sepsis Urinary frequency Anxiety associated with depression Bilateral hip pain Lower back pain Somatic dysfunction of left sacroiliac joint Surgical History History of section Family History Family History Father Substance use disorder Mother Substance use disorder Mental health disorder Maternal Grandmother Substance use disorder Mental health disorder Social History Social History Household Members: Spouse and Friend(s) Housing: House Do you presently have visiting nurse or other home services: No Alcohol intake: current Alcohol intake frequency: holidays/special occasions only Patient Tobacco Use Status: Current everyday Tobacco user Tobacco use type: Cigarette Cigarette Packs Per Day: 1 Cigarettes Per Day: 20.0 Years Smoked: (onset 23yo, 1ppd x 34yrs, 30pyh) e-Cigarette/Vaping Use: Never Used Second Hand Smoke Exposure: No Substance Use Type: Heroin Advance Directives: No Advance Directives Information Provided: No Do you have a plan to hurt others: No Plan service: No Current occupational status: employed Current occupation: [employer] Cognitive needs: No Hearing needs: No Vision needs: No Physical Exam ED Vital Signs: Vital Signs - 24 hr 09/19/23 17:16 09/19/23 18:00 09/19/23 20:21 Temperature 97.9 F 97.5 F 98.0 F Pulse Rate 89 82 77 Respiratory Rate 16 18 Blood Pressure 156/92 H 149/86 H 152/82 H Pulse Oximetry 97 95 96 Oxygen Delivery Method Room Air Room Air Room Air BMI result Body Mass Index 41.2 Const General: cooperative, healthy appearing, comfortable, no acute distress, well developed, alert and awake Orientation/consciousness: oriented to place, oriented to time and patient oriented x3 [facility] Head: Yes normal to inspection, Yes No palpable skull fracture present, Yes normocephalic and Yes atraumatic Eyes General: appearance normal, both eyes and all related structures Neck Neck: Yes normal visual inspection, Yes full ROM, Yes no lymphadenopathy, Yes no meningeal signs, Yes trachea midline, Yes supple, No anterior neck swelling and No tender Chest Chest palpation & inspection: normal inspection of the chest and normal palpation of entire chest wall Resp Effort & Inspection: normal respiratory effort and able to speak in complete sentences Auscultation: clear to auscultation bilaterally Cardio Jugular venous distension: no JVD Heart sounds: S1 normal heart sound present and S2 normal heart sound present GI Inspection: Yes normal to inspection Palpation (GI): Soft to palpation, not firm, nontender, no guarding and not rigid General: No CVA tenderness and Yes no CVA tenderness Back/Spine/Pelvis Back: no CVA tenderness, No CVA tenderness and No back tenderness Back/spine/pelvis image: 2 1. Tenderness on palpation. Negative erythema, ecchymosis, mass on palpation. 2. Tenderness on palpation. Negative ecchymosis, crepitus, deformity, erythema, hotness, coldness, bluish black discoloration. Motor/neuro/vascular exam of lower extremity intact. Skin General skin exam: no rashes or lesions noted, elasticity normal and turgor normal Neuro General: oriented to place, oriented to time, patient oriented x3, gait normal, tone normal, moves all extremities, Normal light touch and pain sensation, no meningeal signs, no focal motor deficits, CN's II-XI intact bilaterally and normal sensation to monofilament Extrem General: Yes normal to inspection, Yes full ROM and Yes capillary refill normal Psych Appearance: grossly normal, well kempt and not disheveled Course Course Course Narrative: RME: Done by SHAWNEE Lobo. Patient presented to the ED for left buttock radiating left leg for week. patient states no urinary/bowel incontinence. patient fell last week. pmh of sciatitca. Negative spine tenderness. Positive left gluteal maixmus. tenderness on palpation. Due to patient states she fell onto left hip lower back was sent for x-ray. Medications Administered Discontinued Medications Generic Name Dose Route Start Last Admin Trade Name Freq PRN Reason Stop Dose Admin Ketorolac Tromethamine 30 mg 09/19/23 19:27 09/19/23 19:41 Ketorolac Tromethamine 30 Mg/Ml Vial IM 09/19/23 19:28 30 mg ONCE ONE Administration Tizanidine HCl 4 mg 09/19/23 19:28 09/19/23 19:50 Tizanidine Hcl 4 Mg Tablet PO 09/19/23 19:29 4 mg ONCE ONE Administration Medical Decision Making Medical Decision Making MDM Narrative: 58-year-old female history of sciatica presents to ED for right buttock pain going down her right leg worse on movement. Patient fell a week ago when the area. X-ray is normal. Toradol muscle relaxer ordered. History physical exam does not indicate hematoma cellulitis. Not suspect the cauda equinus or epidural abscess. Patient feels better. Patient explained worrisome signs. Differential Diagnosis Differential Diagnoses: The differential diagnosis associated with the presentation includes (Fracture, patient, lumbar radiculopathy, sciatica) Admission/Observation Consideration of admission/observation: Escalation of care including admission/observation considered Independent Interpretation I performed an independent interpretation of an: Plain X-Ray Radiology Impression Discussion of test interpretation with radiology: I have reviewed the radiologist's reading. Independent Historian Clinical information obtained from an independent historian. History obtained from or confirmed by: Other (Patient) External Record Review External record reviewed: Other (Prior visits) Prescription Management I considered prescription management with: Pain Medication Discharge Plan Discharge Clinical Impression: Lumbar radiculopathy, Sciatica, Hip arthritis Patient Disposition: Home, Self-Care Instructions: Osteoarthritis (ED), Sciatica (ED), Lumbar Radiculopathy (ED) Additional Instructions: RECOMMEND FOLLOW-UP WITH PRIMARY CARE PROVIDER. RECOMMEND FOLLOW-UP WITH ORTHOPEDIC SURGEON. YOU MAY NEED PHYSICAL THERAPY. RETURN TO THE ED IMMEDIATELY FOR WORSENING BACK PAIN, WORSENING RIGHT GLUTEUS DENISHA PAIN, PARALYSIS OF LOWER EXTREMITIES, INABILITY TO WALK, URINARY/BOWEL INCONTINENCE, DYSURIA, HEMATURIA, ABDOMINAL PAIN, NAUSEA, VOMITING, FEVER, CHILLS, OR ANY OTHER OTHER CONCERNING SYMPTOMS. Prescriptions: New ketorolac 10 mg tablet 10 mg PO Q6H PRN (Reason: pain) 5 Days Qty: 20 0RF Rx Instructions: maximum total duration of 5 days from all oral. PATIENT RECEIVED 30 MG IM INJECTION IN THE ed tizanidine 4 mg capsule 4 mg PO Q8H PRN (Reason: muscle spasticity) 4 Days Qty: 12 0RF Rx Instructions: SIDE-EFFECTS IS DROWSINESS. DO NOT TAKE AT WORK OR WHILE DRIVING No Action venlafaxine 150 mg capsule,extended release 24hr 150 mg PO BID Qty: 180 1RF Breztri Aerosphere 160-9-4.8 mcg/actuation HFA aerosol inhaler 2 inh inhalation BID Qty: 32.1 1RF clonidine HCl 0.1 mg tablet 0.1 mg PO BID Qty: 180 1RF gabapentin 300 mg capsule 600 mg PO TID 90 Days Qty: 540 0RF buprenorphine-naloxone [Suboxone] 4-1 mg film 1 film sublingual DAILY Rx Instructions: administer with suboxone 2mg; total dose 6mg nicotine 21 mg/24 hr patch 24 hour 1 patch transdermal Q24H 28 Days Qty: 28 2RF ipratropium-albuterol 0.5 mg-3 mg(2.5 mg base)/3 mL solution for nebulization 3 ml inhalation Q4-6H PRN (Reason: wheezing) Qty: 90 0RF indomethacin 25 mg capsule 25 mg PO BID Qty: 14 0RF Rx Instructions: Administer with food or milk. Decrease to once a day when symptoms improve. Discontinue use as soon as possible to decrease risk of side effects tizanidine 2 mg capsule 2 mg PO TID PRN (Reason: muscle spasticity) Qty: 20 0RF Rx Instructions: Can increased dose to 2 capsules every 8-12 hours as needed to a maximum dose of 24 mg per day. Do not drive or do safety sensitive work while using this medication Referrals: [facility] Orthopedic Surgeons [Provider Group] (LUMBAR RADICULOPATHY) Stand Alone Forms: Work/School Release Interventions: ED Discharge Assessment Last Done: 09/19/23 20:21 Discharge Date/Time: 09/19/23 20:23 Print Language: Indonesian
[2023-09-19 18:00] VITALS: BP 149/86; PULSE 82; TEMP 36.4; O2SAT 95
[2023-09-19] MEDS: Ketorolac Tromethamine 30 MG/ML VIAL IM (19:41)
[2023-09-19] MEDS: TiZANidine HCL 4 MG TABLET PO (19:50)
[2023-09-19 20:21] VITALS: BP 152/82; PULSE 77; RESP 18; TEMP 36.7; O2SAT 96
== END 2023-09-19 20:23 | disposition home or self-care (01) ==
PROVIDERS: Emergency Provider Internal Medicine; PCP Nurse Practitioner Family
DX: M54.16 Radiculopathy, lumbar region (principal); M54.41 Lumbago with sciatica, right side; M16.9 Osteoarthritis of hip, unspecified; J44.9 Chronic obstructive pulmonary disease, unspecified; F11.20 Opioid dependence, uncomplicated; F17.210 Nicotine dependence, cigarettes, uncomplicated; Z79.899 Other long term (current) drug therapy
CPT/HCPCS: 72100; 73502; 96372; 99283; 99284; J1885

== ENCOUNTER 2023-10-12 14:09 | Outpatient (AMB) | payer OTHER, SELFPAY ==
[2023-10-12 14:19] VITALS: BP 136/80; PULSE 80; TEMP 36.6; O2SAT 94; BMI 41.2
--- NOTE | 2023-10-12 14:19 | AM.OFFWIN_ITS ---
Intake Vital Signs 10/12/23 14:19 Height 5 ft 1 in Weight 218 lb BMI 41.2 BP 136/80 Blood Pressure Location Rt brachial Position Sitting Pulse 80 Pulse Source Pulse Oximeter Temp 97.8 F Temp Source Oral Pulse Oximetry (%) 94 Oxygen Delivery Method Room Air Intake Visit Reasons: EP Sciatica pain Intake Note: pt is here for sciatica pain Patient Tobacco Use Status: Current everyday Tobacco user Allergies omeprazole [From PRILOSEC] Allergy (Severe, Verified 10/12/23 15:02) ANAPHYLAXIS lansoprazole [Prevacid] Allergy (Unknown, Verified 10/12/23 15:02) anaphylaxis cyclobenzaprine [From Flexeril] Allergy (Verified 10/12/23 15:02) Rash Medication List - Last Reconciled 10/12/23 by MD Gary Davis Aerosphere 160-9-4.8 mcg/actuation (djoapjqqkf-vyotxtim-idorocihul) 2 inhalations inhalation BID NS buprenorphine-naloxone 4-1 mg (Suboxone) 1 film sublingual DAILY clonidine HCl 0.1 mg PO BID gabapentin 600 mg (2 x 300 mg) PO TID 90 days indomethacin 25 mg PO BID ipratropium-albuterol 0.5 mg-3 mg(2.5 mg base)/3 mL 3 mL inhalation Q4-6H PRN nicotine 1 patch transdermal Q24H 28 days tizanidine 4 mg PO Q8H PRN 4 days tizanidine 2 mg PO TID PRN venlafaxine ER 150 mg PO BID Do you need a note to return to daycare/school/sports/work: No HPI EP Sciatica pain HPI Details 58-year-old female presents to the [facility] for a sick visit. Patient comes to the office alone. She is complaining of pain in the right hip radiating into the groin area. Symptoms are present for the past 2 months. It started after she began to do yoga. She was stretching her legs and abducting her hip when the pain symptoms started she has had 1 visit to the walk-in here and a visit to the emergency room for same complaint. Patient has taken anti-inflammatories, prednisone with minimal improvement. Able to walk and do activities of daily living. Unfortunately patient has to continue working. 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 [facility] Medical History COPD (chronic obstructive pulmonary disease) Exercise hypoxemia Nicotine dependence, cigarettes, uncomplicated Dyslipidemia Obesity History of sepsis Urinary frequency Anxiety associated with depression Bilateral hip pain Lower back pain Somatic dysfunction of left sacroiliac joint Surgical History History of section Family History Father Substance use disorder Mother Substance use disorder Mental health disorder Maternal Grandmother Substance use disorder Mental health disorder Social History Household Members: Spouse and Friend(s) Housing: House Do you presently have visiting nurse or other home services: No Alcohol intake: current Alcohol intake frequency: holidays/special occasions only Patient Tobacco Use Status: Current everyday Tobacco user Tobacco use type: Cigarette Cigarette Packs Per Day: 1 Cigarettes Per Day: 20.0 Years Smoked: (onset 23yo, 1ppd x 34yrs, 30pyh) e-Cigarette/Vaping Use: Never Used Second Hand Smoke Exposure: No Substance Use Type: Heroin service: No Current occupational status: employed Current occupation: [employer] Cognitive needs: No Hearing needs: No Vision needs: No Physical Exam Vital Signs: Last Vital Signs Temp 97.8 F 10/12/23 14:19 Pulse 80 10/12/23 14:19 BP 136/80 10/12/23 14:19 Pulse Ox 94 10/12/23 14:19 Oxygen Delivery Method Room Air 10/12/23 14:19 BMI result Body Mass Index 41.2 Back/Spine/Pelvis Other: Back: No CVA tenderness. No spine tenderness. Right hip: Discomfort on palpation. Pain on external rotation of the leg at the right Assessment & Plan Assessment & Plan (1) Left hip pain: Code(s): M25.552 - Pain in left hip Plan: Anti-inflammatory and tizanidine called in. Patient has an upcoming appointment with her PCP. Physical therapy has been requested. Note for work given. Coding Level of Care Code Est Pt Level 3 (17619) Diagnoses Left hip pain M25.552
== END 2023-10-12 15:28 | disposition home or self-care (01) ==
PROVIDERS: PCP Nurse Practitioner Family; Visit Provider Internal Medicine
DX: M25.552 Pain in left hip (principal)
CPT/HCPCS: 99213

== ENCOUNTER 2023-10-21 13:04 | Outpatient (AMB) | payer OTHER, SELFPAY ==
--- NOTE | 2023-10-21 13:08 | A.OFFPC_ITS ---
Vital Signs 10/21/23 13:12 Height 5 ft 1 in Weight 219 lb BMI 41.4 BP 126/90 H Blood Pressure Location Lt brachial Position Sitting Pulse 113 H Pulse Source Pulse Oximeter Pulse Oximetry (%) 90 L Oxygen Delivery Method Room Air Intake Visit Reasons: 3 month follow up Intake Note: Patient here to discuss hip pain. Allergies omeprazole [From PRILOSEC] Allergy (Severe, Verified 10/21/23 13:12) ANAPHYLAXIS lansoprazole [Prevacid] Allergy (Unknown, Verified 10/21/23 13:12) anaphylaxis cyclobenzaprine [From Flexeril] Allergy (Verified 10/21/23 13:12) Rash Tobacco use date assessed: 06/21/23 Dental Screening Dental Screen Date: 06/21/23 HPI 3 month follow up HPI Details Pt c/o ongoing pain to her right hip radiating down her right leg and into her groin. She reports the most pain with standing for long periods. Recent XR showed degenerative changes in the spine and right hip, see results. Pt has an upcoming appointment with ortho. She also has an upcoming appointment with PT on 09/24. Will send nabumetone. Denies fever, chills, s/s of cauda equina, and dizziness. NOTE: pt is in pain, most likely cause for elevated BP PFSH Medical History COPD (chronic obstructive pulmonary disease) Exercise hypoxemia Nicotine dependence, cigarettes, uncomplicated Dyslipidemia Obesity History of sepsis Urinary frequency Anxiety associated with depression Bilateral hip pain Lower back pain Somatic dysfunction of left sacroiliac joint Surgical History History of section Family History Father Substance use disorder Mother Substance use disorder Mental health disorder Maternal Grandmother Substance use disorder Mental health disorder Social History Household Members: Spouse and Friend(s) Housing: House Do you presently have visiting nurse or other home services: No Alcohol intake: current Alcohol intake frequency: holidays/special occasions only Patient Tobacco Use Status: Current everyday Tobacco user Tobacco use type: Cigarette Cigarette Packs Per Day: 1 Cigarettes Per Day: 20.0 Years Smoked: (onset 23yo, 1ppd x 34yrs, 30pyh) Packs Per Year: 0 Packs per year/per ci.00 e-Cigarette/Vaping Use: Never Used Second Hand Smoke Exposure: No Substance Use Type: Heroin service: No Current occupational status: employed Current occupation: [employer] Cognitive needs: No Hearing needs: No Vision needs: No Questionnaire Thrive Questionnaire Date Thrive assessed: 10/07/21 DAI-7 AMB Questionnaire DAI-7 Date DAI - 7 assessed: 04/27/22 Source: Developed by Drs. Neel Lazaro, Marilee Stanley, Antonio Rodriguez and colleagues, with an educational willie from [employer]. Review of Systems Const Reports as per HPI Physical exam (Primary Care) Vital Signs: Last Vital Signs Pulse 113 H 10/21/23 13:12 BP 126/90 H 10/21/23 13:12 Pulse Ox 90 L 10/21/23 13:12 Oxygen Delivery Method Room Air 10/21/23 13:12 BMI result Body Mass Index 41.4 Tobacco/Smoking Status: Tobacco use Status Tobacco use date assessed 06/21/23 10/21/23 13:10 Patient Tobacco Use Status Current everyday Tobacco 10/21/23 13:10 Tobacco use type Cigarette 10/21/23 13:10 e-Cigarette/Vaping Use Never Used 10/21/23 13:10 Thrive Assessment: Date of Thrive Assessment Date Thrive assessed 10/07/21 10/21/23 13:10 Const General: cooperative Nutritional Appearance: obese morbidly obese Orientation/consciousness: patient oriented x3 Resp Other: scattered wheezes throughout Cardio Rate: regular rate Rhythm: regular rhythm Heart sounds: S1 normal heart sound present and S2 normal heart sound present Neuro General: patient oriented x3 Psych Appearance: grossly normal Mental Status: mental status grossly normal Speech and movement: Normal speech and movement present Affect: normal affect Attitude: cooperative Thought process: Normal thought process present Thought content: Normal thought content present Insight: Good insight present (Psych) Judgement: Good judgement present (Psych) Assessment and Plan Assessment & Plan (1) Low back pain radiating to lower extremity: Code(s): M54.50 - Low back pain, unspecified; M79.606 - Pain in leg, unspecified (2) Degenerative arthritis of hip: Code(s): M16.9 - Osteoarthritis of hip, unspecified Plan: pt will be following up with ortho Plan The patient agreed to the use of a product manager medical device for this encounter. Scribed for DAVE Naranjo by Scarlett Sabillon product manager medical device, on 10/21/2023 at 13:20 EST. Medications: New nabumetone 750 mg PO BID 30 days PRN 60 tabs 0RF pain nabumetone 750 mg PO BID 30 days 60 tabs 0RF Discontinued indomethacin Administer with food or milk. Decrease to once a day when symptoms improve. Discontinue use as soon as possible to decrease risk of side effects Discontinued Reason: Doctor's Order 25 mg PO BID 14 caps 0RF prednisone Discontinued Reason: Doctor's Order 50 mg PO DAILY 6 days 6 tabs 0RF Coding Level of Care Code Est Pt Level 3 (38517) Diagnoses Low back pain radiating to lower extremity M54.50; M79.606 Degenerative arthritis of hip M16.9
[2023-10-21 13:12] VITALS: BP 126/90; PULSE 113; O2SAT 90; BMI 41.4
== END 2023-10-21 14:08 | disposition home or self-care (01) ==
PROVIDERS: PCP Nurse Practitioner Family; Visit Provider Nurse Practitioner Family
DX: M54.50 Low back pain, unspecified (principal); M79.606 Pain in leg, unspecified; M16.9 Osteoarthritis of hip, unspecified
CPT/HCPCS: 99213

== ENCOUNTER 2023-10-27 11:23 | Outpatient (AMB) | payer SELFPAY ==
[2023-10-27 11:24] VITALS: BMI 41.4
--- NOTE | 2023-10-27 11:24 | A.OFFVIS_ITS ---
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 Patient explains that her pain is felt deep in the hip and groin radiating down the leg. She is also having cramps in the lower leg. This pain has been present since the beginning of the year but she cannot identify what caused her pain. She started physical therapy on Wednesday and will be seen 2x a week. She is taking Tizanidine, which she takes occasionally because it makes her drowsy Allergies omeprazole [From PRILOSEC] Allergy (Severe, Verified 10/27/23 11:25) ANAPHYLAXIS lansoprazole [Prevacid] Allergy (Unknown, Verified 10/27/23 11:25) anaphylaxis cyclobenzaprine [From Flexeril] Allergy (Verified 10/27/23 11:25) Rash Medication List - Last Reconciled 10/27/23 by Ale Andrade MD Breztri Aerosphere 160-9-4.8 mcg/actuation (kxbjwpzwyl-wmefqkvu-wznhdugqzq) 2 inhalations inhalation BID NS buprenorphine-naloxone 4-1 mg (Suboxone) 1 film sublingual DAILY clonidine HCl 0.1 mg PO BID gabapentin 600 mg (2 x 300 mg) PO TID 90 days ipratropium-albuterol 0.5 mg-3 mg(2.5 mg base)/3 mL 3 mL inhalation Q4-6H PRN nabumetone 750 mg PO BID PRN 30 days nicotine 1 patch transdermal Q24H 28 days tizanidine 2 mg PO TID PRN tizanidine 4 mg PO Q8H PRN 4 days venlafaxine ER 150 mg PO BID HPI Comments Details: Doing well prior to onset in September 2023. No inciting injuries. Maybe did yoga prior during which she felt tightness on thighs, tried to stretch it out, after one new sequency, next day started having this pain. Right sided starts the lateral hip, goes to right groin and medial thigh and down to calf. Spasms on calf. Numbness on lateral thigh. No weakness. Pain worse with standing. No bladder/bowel changes. Had PT 1 session/evaluation, scheduled for more. Reviewed PT notes. On Suboxone for history of opiate use. Gabapentin for chronic back pain. No MRI in the past. [facility] Medical History (Updated 10/27/23 @ 12:25 by Ale Andrade MD) Lumbar spondylosis Trochanteric bursitis of right hip COPD (chronic obstructive pulmonary disease) Exercise hypoxemia Nicotine dependence, cigarettes, uncomplicated Dyslipidemia Obesity History of sepsis Urinary frequency Anxiety associated with depression Bilateral hip pain Lower back pain Somatic dysfunction of left sacroiliac joint Surgical History History of section Family History Father Substance use disorder Mother Substance use disorder Mental health disorder Maternal Grandmother Substance use disorder Mental health disorder Social History Household Members: Spouse and Friend(s) Housing: House Do you presently have visiting nurse or other home services: No Alcohol intake: current Alcohol intake frequency: holidays/special occasions only Patient Tobacco Use Status: Current everyday Tobacco user Tobacco use type: Cigarette Cigarette Packs Per Day: 1 Cigarettes Per Day: 20.0 Years Smoked: (onset 23yo, 1ppd x 34yrs, 30pyh) e-Cigarette/Vaping Use: Never Used Second Hand Smoke Exposure: No Substance Use Type: Heroin service: No Current occupational status: employed Current occupation: [employer] Cognitive needs: No Hearing needs: No Vision needs: No Review of Systems Const All systems reviewed & are unremarkable except as noted in HPI and below Physical Exam Vital Signs: BMI result Body Mass Index 41.4 Constitutional: Patient appears to be in no acute distress, well nourished and well developed. Patient was appropriately conversant and oriented. Good historian. MSK: No specific abnormalities found on inspection of the spine and all extremities. No pain with palpation over the lumbar area. No SI joint tenderness. Point tenderness on right GT and ITB. Lumbar ROM was full. Bilateral hip, knee and ankle ROM WNL. No ligamentous laxity or crepitance. No increased effusion. Straight-leg raising test negative. FABERE test positive right groin pain. Strength is 5/5 in all muscle groups tested. No increased tone noted. Neurological: Neurologic examination of the upper and lower extremities was nonfocal with intact sensation, muscle stretch reflexes and without focal motor deficits . Orozco?s negative bilaterally. Babinski was down going bilaterally. Clonus was negative. Gait is antalgic without loss of balance. Results Reviewed Results Reviewed: I independently reviewed the results of the following: Hip x-rays showed loss of joint space, right worse than left. Lumbar x-rays showed degenerative changes, disc space loss at L2-3 and L3-4 most notably. Ordering Physician: Raffi Lobo Date of Service: 09/19/23 Procedure(s): XR lumbar spine 2-3V Accession Number(s): [id number] cc: Raffi Lobo; Ezra Zuñiga RN BUILDING-~ EXAMINATION: LUMBOSACRAL SPINE AND RIGHT HIP CLINICAL INFORMATION: Fall with question of fracture COMPARISON: Bilateral hips 03/20/2022 TECHNIQUE: 3 views of the lumbosacral spine, single view pelvis with 2 additional views right hip FINDINGS: Lumbosacral spine: Marked degenerative changes are present throughout the spine with biconvex thoracolumbar scoliosis. Disc space narrowing is present at most levels with some associated endplate sclerosis. No acute fractures or subluxations are seen. No pelvic or hip fracture is seen. Moderate degenerative changes are present in the right hip with superior joint space narrowing. Milder degenerative changes are seen in the left hip. XR/XR lumbar spine 2-3V IMPRESSION: 1. No evidence of an acute osseous injury. 2. Degenerative changes in the spine and hips as described above. I reviewed records from the following: PCP Assessment & Plan Assessment & Plan (1) Degenerative arthritis of hip: Code(s): M16.9 - Osteoarthritis of hip, unspecified Category: Medical Qualifiers: Osteoarthritis type: primary Laterality: right Qualified Code(s): M16.11 - Unilateral primary osteoarthritis, right hip (2) Trochanteric bursitis of right hip: Code(s): M70.61 - Trochanteric bursitis, right hip Category: Medical (3) Lumbar spondylosis: Code(s): M47.816 - Spondylosis without myelopathy or radiculopathy, lumbar region Category: Medical Plan Despite lumbar x-ray findings and chronic lower back pain, I think her main issue currently is coming from the right hip joint. We talked about possibly considering right hip replacement in the future. She does have acute/subacute right greater trochanteric bursitis adding to her right hip pain. We can schedule her for a trochanteric injection next week. Let us see how the injection would help before we decide whether patient would need intra-articular hip joint injection versus hip replacement. She denies any ongoing lower back pain. Assessment and plan discussed with patient, and patient was agreeable. All questions were answered thoroughly. Ale Andrade MD, DARA Board Certified, [place] [employer] and Rehabilitation (ABPMR) Board Certified, [place] [employer] Electro[employer] (ABEM) Coding Level of Care Code New Pt Level 4 (65959) Diagnoses Primary osteoarthritis of right hip M16.11 Osteoarthritis type: primary Laterality: right Trochanteric bursitis of right hip M70.61 Lumbar spondylosis M47.816
== END 2023-10-27 11:56 | disposition home or self-care (01) ==
PROVIDERS: PCP Nurse Practitioner Family; Visit Provider Physical Medicine & Rehabilitation
DX: M16.11 Unilateral primary osteoarthritis, right hip (principal); M70.61 Trochanteric bursitis, right hip; M47.816 Spondylosis without myelopathy or radiculopathy, lumbar region
CPT/HCPCS: 99203

== ENCOUNTER → 2023-10-27 11:23 | Outpatient (BNVA) | payer OTHER, SELFPAY | PROVIDERS: PCP Nurse Practitioner Family; Visit Provider Physical Medicine & Rehabilitation ==

== ENCOUNTER 2023-11-01 11:49 | Outpatient (AMB) | payer SELFPAY ==
--- NOTE | 2023-11-01 11:51 | A.OFFVIS_ITS ---
Vital Signs 11/01/23 11:58 Height 5 ft 1 in Weight 219 lb BMI 41.4 Intake Visit Reasons: Right Hip Bursitis Injection Intake Note: Rody a 58 year old female who presents today for a right hip injection. Patient was seen last week with Dr. Andrade who suggest a trochanteric injection. Allergies omeprazole [From PRILOSEC] Allergy (Severe, Verified 11/01/23 11:58) ANAPHYLAXIS lansoprazole [Prevacid] Allergy (Unknown, Verified 11/01/23 11:58) anaphylaxis cyclobenzaprine [From Flexeril] Allergy (Verified 11/01/23 11:58) Rash HPI HPI Right Hip Bursitis Injection: Details: 58-year-old female who presents to the office today for pain in the right hip. She was recently seen by our cutter aluminum sheet in the office for low back and hip pain. She states that her pain is located in her groin which does radiate towards the lateral aspect of the hip into her buttock region. She has been working with physical therapy for strengthening exercises. [facility] Medical History (Updated 10/27/23 @ 12:25 by Ale Andrade MD) Lumbar spondylosis Trochanteric bursitis of right hip COPD (chronic obstructive pulmonary disease) Exercise hypoxemia Nicotine dependence, cigarettes, uncomplicated Dyslipidemia Obesity History of sepsis Urinary frequency Anxiety associated with depression Bilateral hip pain Lower back pain Somatic dysfunction of left sacroiliac joint Surgical History History of section Family History Father Substance use disorder Mother Substance use disorder Mental health disorder Maternal Grandmother Substance use disorder Mental health disorder Social History Household Members: Spouse and Friend(s) Housing: House Do you presently have visiting nurse or other home services: No Alcohol intake: current Alcohol intake frequency: holidays/special occasions only Patient Tobacco Use Status: Current everyday Tobacco user Tobacco use type: Cigarette Cigarette Packs Per Day: 1 Cigarettes Per Day: 20.0 Years Smoked: (onset 23yo, 1ppd x 34yrs, 30pyh) e-Cigarette/Vaping Use: Never Used Second Hand Smoke Exposure: No Substance Use Type: Heroin service: No Current occupational status: employed Current occupation: [employer] Cognitive needs: No Hearing needs: No Vision needs: No Review of Systems Const All systems reviewed & are unremarkable except as noted in HPI and below Physical Exam Vital Signs: BMI result Body Mass Index 41.4 Const General: cooperative and no acute distress Orientation/consciousness: patient oriented x3 Resp Effort & Inspection: normal respiratory effort and able to speak in complete sentences Cardio Peripheral pulses: Peripheral pulses 2+ throughout Neuro General: patient oriented x3 Extrem Other: Left hip normal to inspection. No pain with ROM of the hip. Pain along the greater trochanter. No pain with hip flexion or abduction.There is no tenderness along the si joint, Negative SLR. NVI. Office Procedures Joint Injection/Drain Joint Injection/Drain Details: right trochanteric bursa Prep: site was prepped using aseptic technique, ethochloride spray was applied and injection warnings given Injected: 80 mg of, DepoMedrol, with 8 mL of and 1% plain lidocaine Procedure: The patient tolerated the procedure well and there was some relief with the local anesthesia Coding 78635 - Glenohumeral/Tronchanteric Bursa/Intraarticular Procedure code (CPT) selection complete Assessment & Plan Assessment & Plan (1) Trochanteric bursitis of right hip: Code(s): M70.61 - Trochanteric bursitis, right hip Category: Medical Plan We discussed options today, which include steroid injection. The patient did consent to move forward with the injection, which was tolerated well.? I recommended rest, ice and elevation and OTC antiinflammatories prn for discomfort. If symptoms persist over the next 6-8 weeks, they will contact our office, otherwise, prn Coding Level of Care Code Est Pt Level 3 (86387) Diagnoses Trochanteric bursitis of right hip M70.61 CPT Codes Coding - Joint 7: 72892 - Glenohumeral/Tronchanteric Bursa/Intraarticular ([id number])
[2023-11-01 11:58] VITALS: BMI 41.4
== END 2023-11-01 13:05 | disposition home or self-care (01) ==
PROVIDERS: PCP Nurse Practitioner Family; Visit Provider Physician Assistant
DX: M70.61 Trochanteric bursitis, right hip (principal)
CPT/HCPCS: 20610; 99213

== ENCOUNTER → 2023-11-01 11:49 | Outpatient (BNVA) | payer OTHER, SELFPAY | PROVIDERS: PCP Nurse Practitioner Family; Visit Provider Physician Assistant | DX: M70.61 Trochanteric bursitis, right hip (principal) | CPT/HCPCS: 20610; J1010 ==

== ENCOUNTER 2023-11-02 13:00 | Outpatient (RCR) | payer OTHER, SELFPAY ==
--- NOTE | 2023-10-25 13:51 | MHC.PT.EP ---
[facility] [place] [facility] [place] [facility] [place] [facility] [address] [phone] F: [phone] F: [phone] F: [phone] F: [phone] Physical Therapy Plan of Care Date of Evaluation: 10/25/23 Date of Surgery: Diagnosis: low back pain with radiculopathy Assessment: Patient is a 58 year old R handed female who presents with s/s consistent with low back pain with radiculopathy, low back pain. 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 Patient past medical history includes COPD, obesity, history of sepsis, b/l hips pain and anxiety. Current impairments include pain, posture, ROM, strength, activity tolerance and functional mobility. Functional limitations include decreased ability to stand, walk, bend, lift, squat, negotiate stairs. Patient is motivated with good rehab potential. Skilled PT will address impairments and functional limitations in order to achieve goals. Frequency and Duration: The patient will be seen 2x/week for 5 weeks. Short Term Goals: I with HEP - 2 weeks AROM ER b/l hips to 36 - 3 weeks 90/90 WNL - 3 weeks Validation Architect Goals: Hip strength 4/5 grossly - 5 weeks Oswestry 18% or better - 5 weeks Able to work full shift without increased pain - 5 weeks Hip flexion AROM 110 pain free - 5 weeks Treatment Plan: Modalities to reduce pain, spasms and effusion. Manual therapy to restore motion and function. Therapeutic exercise to improve strength and flexibility. Neuromuscular re-education for posture and balance. Therapeutic activities to return to functional activities of daily living. Electronically signed by: Rodriguez Pacheco, PT Please sign and return to therapist. Thank you for your referral.
--- NOTE | 2023-12-16 09:12 | MHC.PT.DC ---
[facility] [place] [facility] [place] [facility] [place] Office [address] [phone] F: [phone] F: [phone] F: [phone] F: [phone] Physical Therapy Discharge Report Diagnosis: low back pain with radiculopathy Date of Surgery: Date of Evaluation: 10/25/23 Date of Discharge: 11/26/23 Treatments to Date: 3 Cancellations to Date: No Shows to Date: Discharge Status: Independent with HEP Patient Elected to Stop Discharge Summary: 11/02/23: pt responding very well to above program. issued updated HEP. progress as tolerated. 10/29/23: pt progressed with hip strength and stretching, core posturing, stretching, and awareness. continue to progress as tolerated. Patient is a 58 year old R handed female who presents with s/s consistent with low back pain with radiculopathy, low back pain. 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 Patient past medical history includes COPD, obesity, history of sepsis, b/l hips pain and anxiety. Current impairments include pain, posture, ROM, strength, activity tolerance and functional mobility. Functional limitations include decreased ability to stand, walk, bend, lift, squat, negotiate stairs. Patient is motivated with good rehab potential. Skilled PT will address impairments and functional limitations in order to achieve goals. Electronically signed by: Rodriguez Pacheco, PT Please sign and return to therapist. Thank you for your referral.
== END 2023-12-16 09:13 | disposition home or self-care (01) ==
LOC: HO.PTCHIC 13:00
PROVIDERS: PCP Nurse Practitioner Family; Visit Provider Nurse Practitioner Family
DX: M54.50 Low back pain, unspecified (principal); M79.604 Pain in right leg
CPT/HCPCS: 97110; 97163

== ENCOUNTER 2023-11-24 10:26 | Outpatient (AMB) | payer SELFPAY ==
[2023-11-24 10:26] VITALS: BP 130/80; PULSE 86; O2SAT 93
--- NOTE | 2023-11-24 10:26 | MHC.PC.OV ---
Vital Signs 11/24/23 10:26 Height 5 ft 1 in BMI Reason not done Patient refused/unable BP 130/80 Blood Pressure Location Rt brachial Position Sitting Pulse 86 Pulse Source Pulse Oximeter Pulse Oximetry (%) 93 Oxygen Delivery Method Room Air Intake Visit Reasons: PE Intake Note: patient is here for physical exam C.O.D. Biller Required: No Accompanied by: Self / Same As Patient Allergies omeprazole [From PRILOSEC] Allergy (Severe, Verified 11/24/23 11:43) ANAPHYLAXIS lansoprazole [Prevacid] Allergy (Unknown, Verified 11/24/23 11:43) anaphylaxis cyclobenzaprine [From Flexeril] Allergy (Verified 11/24/23 11:43) Rash Medication List - Last Reconciled 11/24/23 by DAVE Pascal Breztri Aerosphere 160-9-4.8 mcg/actuation (htoguaefex-jirzzayl-quqswoswog) 2 inhalations inhalation BID NS buprenorphine-naloxone 4-1 mg (Suboxone) 1 film sublingual DAILY clonidine HCl 0.1 mg PO BID gabapentin 600 mg (2 x 300 mg) PO TID 90 days ipratropium-albuterol 0.5 mg-3 mg(2.5 mg base)/3 mL 3 mL inhalation Q4-6H PRN nabumetone 750 mg PO BID PRN 30 days nicotine 1 patch transdermal Q24H 28 days tizanidine 2 mg PO TID PRN tizanidine 4 mg PO Q8H PRN 4 days venlafaxine ER 150 mg PO BID Tobacco use date assessed: 11/24/23 Dental Screening Dental Screen Date: 11/24/23 Did you have a dental visit in the last 12 months?: Yes Did you have a dental problem in the last 6 months where you did not have access to dental care?: No Was dental information given to patient?: Patient has dentist HPI PE HPI Details Pt is here for a PE. Will order labs. Due for colon screen, cologuard has been ordered multiple times but pt has not done this, will reorder. Pt does not have a field marketing coordinator, will refer. Refuses mammo. Pt goes for low-dose CTs. [facility] Medical History Lumbar spondylosis Trochanteric bursitis of right hip COPD (chronic obstructive pulmonary disease) Exercise hypoxemia Nicotine dependence, cigarettes, uncomplicated Dyslipidemia Obesity History of sepsis Urinary frequency Anxiety associated with depression Bilateral hip pain Lower back pain Somatic dysfunction of left sacroiliac joint Surgical History History of section Family History Father Substance use disorder Mother Substance use disorder Mental health disorder Maternal Grandmother Substance use disorder Mental health disorder Social History Household Members: Spouse and Friend(s) Housing: House Do you presently have visiting nurse or other home services: No Alcohol intake: current Alcohol intake frequency: holidays/special occasions only Patient Tobacco Use Status: Current everyday Tobacco user Tobacco use type: Cigarette Cigarette Packs Per Day: 1 Cigarettes Per Day: 20.0 Years Smoked: (onset 23yo, 1ppd x 34yrs, 30pyh) e-Cigarette/Vaping Use: Never Used Second Hand Smoke Exposure: No Substance Use Type: Heroin service: No Current occupational status: employed Current occupation: [employer] Cognitive needs: No Hearing needs: No Vision needs: No Questionnaire Thrive Questionnaire Date Thrive assessed: 11/24/23 I am a: Patient What is your living situation today?: I have a steady place to live Within the past 12 months, did the food you bought not last and you didn't have the money to get more?: Never true Within the past 12 months, did you worry whether your food would run out before you got money to buy more?: Never true Do you have trouble paying for medicines?: No Do you have trouble getting transportation to medical appointments?: No Do you have trouble paying your heating and electricity bill?: No Do you have trouble taking care of your child, family member or friend?: No Do you have trouble with day-to-day activities such as bathing, preparing meals, shopping, managing finances, etc.?: No Are you currently unemployed and looking for a job?: No Are you interested in more education?: No Please select the resources that you would like help with: None Currently or been in a relationship where the following occur: No concerns reported THRIVE Score: 0 AUDIT C Alcohol Use Questionnaire (AUDIT-C) 1. How often do you have a drink containing alcohol?: Never 3. How often do you have six or more drinks on one occasion?: Never Total Score: 0 Score Reviewed/Action Taken: Yes DAI-7 AMB Questionnaire DAI-7 Date DAI - 7 assessed: 11/24/23 Source: Developed by Drs. Neel Lazaro, Marilee Stanley, Antonio Rodriguez and colleagues, with an educational willie from [employer]. DAI-7 Assessment Billing DAI-7 Assessment Tool: pt declined-do not bill Review of Systems Const Denies chills and Denies fever(s) Eyes Denies blurry vision ENT Denies vertigo, Denies dizziness and Denies sore throat Card Denies chest pain at rest, Denies chest pain with activity, Denies diaphoresis, Denies dyspnea and Denies dyspnea on exertion Resp Denies cough, Denies dyspnea, Denies dyspnea on exertion and Denies wheezing GI Denies abdominal pain, Denies melena, Denies hematochezia, Denies constipation, Denies diarrhea and Denies loose stools Denies hematuria Musc Denies numbness and Denies tingling Skin/Breast Denies lesions Neuro Denies vertigo, Denies dizziness, Denies numbness and Denies tingling Psych Denies anxiety, Denies depression, Denies homicidal ideation, Denies suicidal ideation and Denies other (substance abuse) Aller/Immun Denies wheezing Physical exam (Primary Care) Vital Signs: Last Vital Signs Pulse 86 11/24/23 10:26 BP 130/80 11/24/23 10:26 Pulse Ox 93 11/24/23 10:26 Oxygen Delivery Method Room Air 11/24/23 10:26 Tobacco/Smoking Status: Tobacco use Status Tobacco use date assessed 11/24/23 11/24/23 10:28 Patient Tobacco Use Status Current everyday Tobacco 11/24/23 10:28 Tobacco use type Cigarette 11/24/23 10:28 e-Cigarette/Vaping Use Never Used 11/24/23 10:28 Thrive Assessment: Date of Thrive Assessment Date Thrive assessed 11/24/23 11/24/23 10:28 Currently or been in a relationship where the following occur: No concerns reported Const General: cooperative Nutritional Appearance: well nourished and obese Orientation/consciousness: patient oriented x3 HENMT Head: Yes normal to inspection, Yes normocephalic and Yes atraumatic Ears: TM's normal bilaterally Eyes General: appearance normal, both eyes and all related structures Alignment and Position: alignment normal and position normal Neck Neck: Yes normal visual inspection and Yes no lymphadenopathy Thyroid: Thyroid normal Resp Effort & Inspection: normal respiratory effort Auscultation: clear to auscultation bilaterally Cardio Rate: regular rate Rhythm: regular rhythm Heart sounds: S1 normal heart sound present, S2 normal heart sound present and no murmurs GI Palpation (GI): Soft to palpation and nontender Auscultation: normal bowel sounds Skin Rashes: no rashes Neuro General: patient oriented x3, moves all extremities, no focal motor deficits and deep tendon reflexes 2+ bilaterally Romberg Test: Negative Psych Appearance: grossly normal Mental Status: mental status grossly normal Speech and movement: Normal speech and movement present Affect: normal affect Attitude: cooperative Thought process: Normal thought process present Thought content: Normal thought content present Insight: Good insight present (Psych) Judgement: Good judgement present (Psych) Immunizations pneumoc 20-kyung conj-dip cr(PF) 0.5 mL IM syringe Performing Provider: DAVE Pascal Performing Location: [facility] Administered by: Pillo Fowler CMA on 11/24/23 11:03 Dose Route Admin Location Dispensed Lot Number Expiration Date NDC Water Mechanic 0.5 mL IM Left Deltoid 0.5 mL [id number] 10/09/24 [id number] [place] VIS Given Date VIS Provided VIS Publication Date 11/24/23 Single Vaccine 21 Eligibility Eligibility Date Funding Source Not [facility] Eligible 11/24/23 Private Assessment and Plan Assessment & Plan (1) Vitamin D deficiency: Code(s): E55.9 - Vitamin D deficiency, unspecified Plan: Vitamin D ordered (2) Screening for cervical cancer: Code(s): Z12.4 - Encounter for screening for malignant neoplasm of cervix (3) Physical exam: Code(s): Z00.00 - Encounter for general adult medical examination without abnormal findings Plan: lab ordered Plan The patient agreed to the use of a medical writer for this encounter. Scribed for DAVE Naranjo by claudia Diamondibe, on 11/24/2023 at 10:40 EST. Orders: Orders UA CC w/rflx Micro + Cult Today Z00.00 - Encounter for general adult medical examination without abnormal findings Lipid Panel Today Z00.00 - Encounter for general adult medical examination without abnormal findings Vitamin D 25-OH Total Today E55.9 - Vitamin D deficiency, unspecified Complete Blood Count Auto Diff Today Z00.00 - Encounter for general adult medical examination without abnormal findings Comprehensive [place]. Panel Fast Today Z00.00 - Encounter for general adult medical examination without abnormal findings TSH reflex Free T4 Today Z00.00 - Encounter for general adult medical examination without abnormal findings Pneumococcal 20 Immunization Today Z23 - Encounter for immunization Referrals Cologuard Test Z12.11 - Encounter for screening for malignant neoplasm of colon, Z12.12 - Encounter for screening for malignant neoplasm of rectum [employer] Referral Z12.4 - Encounter for screening for malignant neoplasm of cervix Medications: Refilled nabumetone 750 mg PO BID 30 days PRN 60 tabs 0RF pain Coding Level of Care Code Est Pt Prev Care 40-64y(57907) Diagnoses Vitamin D deficiency E55.9 Screening for cervical cancer Z12.4 Physical exam Z00.00
== END 2023-11-24 11:02 | disposition home or self-care (01) ==
PROVIDERS: PCP Nurse Practitioner Family; Visit Provider Nurse Practitioner Family
DX: Z00.00 Encounter for general adult medical examination without abnormal findings (principal); E55.9 Vitamin D deficiency, unspecified; Z23 Encounter for immunization
CPT/HCPCS: 90471; 90677; 99396

== ENCOUNTER 2023-12-13 10:57 | Emergency (ER) | payer MEDICAID, SELFPAY ==
--- NOTE | ~2023-12-13 | CT_ITS ---
EXAMINATION: CT ABDOMEN AND PELVIS WITHOUT CONTRAST CLINICAL INFORMATION: Severe hip and low back pain COMPARISON: Hip radiograph September 29, 2023 TECHNIQUE: Multidetector volumetric imaging was performed from the superior aspect of the liver through the pubic symphysis. Sagittal and coronal reformatted images were obtained on the technologist's workstation. This CT examination was performed using dose optimization techniques as appropriate, variously including the following: *Automated exposure control *Adjustment of mA and/or kV according to patient size (this includes techniques or standardized protocols for targeted exams where dose is matched to indication/reason for exam; i.e. extremities or head) *Use of iterative reconstruction technique DLP: 909 mGy-cm FINDINGS: LUNG BASES: The visualized lung bases are unremarkable. LIVER, GALLBLADDER, AND BILIARY TREE: The liver is normal in size, shape, and attenuation. No focal hepatic lesion or biliary ductal dilatation is present. Nitrogen containing gallstone. No pericholecystic fluid. PANCREAS: Unremarkable. SPLEEN: Unremarkable. ADRENAL GLANDS: Unremarkable. KIDNEYS AND URETERS: The kidneys are normal in size, shape, and attenuation. No hydronephrosis, hydroureter, or calculi seen. No perinephric stranding. BLADDER: Unremarkable. GASTROINTESTINAL TRACT: The small and large bowel are unremarkable. ABDOMINAL WALL: No significant hernia is appreciated. LYMPH NODES: Normal. VASCULAR: Unremarkable. PELVIC VISCERA: Unremarkable. OSSEOUS STRUCTURES: Multilevel severe degenerative changes of the lumbar spine. Severe right hip degenerative changes with mild anterior subluxation of the femoral head. Right hip effusion. CT/CT abdomen pelvis wo IV con IMPRESSION: 1. Severe right hip degenerative changes with mild anterior subluxation of the femoral head. Right hip effusion. 2. Multilevel severe degenerative changes of the lumbar spine. Fleischner guidelines were followed. Electronically signed by: Jimmie Dobbs MD 12/13/2023 03:17 PM EDT
--- NOTE | ~2023-12-13 | CT_ITS ---
EXAMINATION: CT HEAD WITHOUT CONTRAST CLINICAL INFORMATION: Fall. Head strike. COMPARISON: CT head from 04/27/2006. TECHNIQUE: Contiguous axial imaging was performed from the skull base to vertex without intravenous administration of contrast. This CT examination was performed using dose optimization techniques as appropriate, variously including the following: *Automated exposure control. *Adjustment of mA and/or kV according to patient size (this includes techniques or standardized protocols for targeted exams where dose is matched to indication/reason for exam; i.e. extremities or head). *Use of iterative reconstruction technique. DLP: 1556 mGy-cm FINDINGS: There is no evidence of acute intracranial hemorrhage or edematous territorial infarction. Van-white matter differentiation is preserved. A few foci of hypoattenuation in the periventricular and deep white matter are consistent with mild microangiopathy. The ventricles are normal in morphology and size. No evidence for obstructive hydrocephalus. No abnormal mass effect or midline shift. No extra-axial fluid collections. Calcific atherosclerotic disease of the intracranial internal carotid and vertebral arteries. No hyperdense vessel sign. Mild soft tissue edema along the vertex. No associated acute osseous abnormalities. Mild mucosal thickening of the paranasal sinuses. The mastoid air cells and middle ear cavities are clear. CT/CT head/brain wo IV con IMPRESSION: 1. No evidence of acute intracranial hemorrhage or edematous territorial infarction. 2. Mild underlying microangiopathy. Electronically signed by: Jefferson Head DO 12/13/2023 03:46 PM EDT
[2023-12-13 11:00] VITALS: BP 138/81; PULSE 93; RESP 18; TEMP 36.6; O2SAT 96; BMI 39.1
[2023-12-13] MEDS: Ketorolac Tromethamine 30 MG/ML VIAL IM (13:28)
[2023-12-13] MEDS: Lidocaine 4 % Patch ADH..PATCH 1 PATCH TRANSDERMA (13:29)
--- NOTE | 2023-12-13 14:01 | ED.GENADULT ---
HPI - General Adult General Chief complaint: Extremity Injury, Lower Stated complaint: R hip/groin pain Time Seen by Provider: 12/13/23 13:05 Source: patient Mode of arrival: ambulatory Limitations: no limitations History of Present Illness ED Provider: Derek MOSQUERA HPI narrative: 58-year-old female history overactive bladder, COPD, bursitis of right hip presents with right lower back pain /hip pain with radiation to right lower extremity with associated intermittent numbness and tingling patient reports this has been going on for about a week and a half, she reports the other day she fell onto the ground onto her right hip, and since then pain has been worsening. When she fell she did not hit her head did not lose consciousness. At this moment she is not having numbness or tingling. She denies fevers, chills, chest pain, shortness of breath, recent illness, changes in urinary or bladder habits, saddle anesthesias, weakness, abdominal pain. Related Data Home Medications ?Medication ?Instructions ?Recorded ?Confirmed buprenorphine 4 mg-naloxone 1 mg 1 film sublingual DAILY 10/30/20 11/24/23 sublingual film (Suboxone) Previous Rx's ?Medication ?Instructions ?Recorded venlafaxine 150 mg 150 mg PO BID #180 caps 06/12/23 capsule,extended release 24 hr ipratropium 0.5 mg-albuterol 3 mg 3 ml inhalation Q4-6H PRN wheezing 06/21/23 (2.5 mg base)/3 mL nebulization #90 mL soln nicotine 21 mg/24 hr daily 1 patch transdermal Q24H SMOKING 06/21/23 transdermal patch 28 days #28 ea Breztri Aerosphere 160 2 inh inhalation BID #32.1 grams 09/16/23 mcg-9mcg-4.8mcg/actuation HFA aerosol inhaler (uobnhenyic-znuzhpim-qpwluebkzl) clonidine HCl 0.1 mg tablet 0.1 mg PO BID #180 tabs 09/16/23 gabapentin 300 mg capsule 600 mg (2 x 300 mg) PO TID 90 days 09/16/23 #540 caps tizanidine 2 mg capsule 2 mg PO TID PRN muscle spasticity 09/18/23 #20 caps tizanidine 4 mg capsule 4 mg PO Q8H PRN muscle spasticity 10/12/23 4 days #12 caps nabumetone 750 mg tablet 750 mg PO BID PRN pain 30 days #60 11/24/23 tabs Allergies Allergy/AdvReac Type Severity Reaction Status Date / Time omeprazole [From PRILOSEC] Allergy Severe ANAPHYLAXIS Verified 12/13/23 11:01 lansoprazole [Prevacid] Allergy Unknown anaphylaxis Verified 12/13/23 11:01 cyclobenzaprine Allergy Rash Verified 12/13/23 11:01 [From Flexeril] Review of Systems Review of Systems: Yes all other systems are reviewed and are negative [facility] Past Medical History Attestation statement: The following information was validated with the patient. Source: old records reviewed and nursing notes reviewed Medical History Lumbar spondylosis Trochanteric bursitis of right hip COPD (chronic obstructive pulmonary disease) Exercise hypoxemia Nicotine dependence, cigarettes, uncomplicated Dyslipidemia Obesity History of sepsis Urinary frequency Anxiety associated with depression Bilateral hip pain Lower back pain Somatic dysfunction of left sacroiliac joint Surgical History History of section Family History Family History Father Substance use disorder Mother Substance use disorder Mental health disorder Maternal Grandmother Substance use disorder Mental health disorder Social History Social History Household Members: Spouse and Friend(s) Housing: House Do you presently have visiting nurse or other home services: No Alcohol intake: current Alcohol intake frequency: holidays/special occasions only Patient Tobacco Use Status: Current everyday Tobacco user Tobacco use type: Cigarette Cigarette Packs Per Day: 1 Cigarettes Per Day: 20.0 Years Smoked: (onset 23yo, 1ppd x 34yrs, 30pyh) Smoked in Last 30 Days: Yes e-Cigarette/Vaping Use: Never Used Second Hand Smoke Exposure: No Use of substances other than those prescribed or required for medical reasons: No Substance Use Type: Heroin Advance Directives: No Advance Directives Information Provided: Yes Do you have a plan to hurt others: No Plan Patient : No service: No Current occupational status: employed Current occupation: [employer] Cognitive needs: No Hearing needs: No Vision needs: No Physical Exam ED Vital Signs: Vital Signs - 24 hr 12/13/23 11:00 12/13/23 16:16 12/13/23 16:17 Temperature 97.9 F 98.1 F Pulse Rate 93 87 Respiratory Rate 18 13 19 Blood Pressure 138/81 119/56 L Pulse Oximetry 96 96 Oxygen Delivery Method Room Air Room Air 12/13/23 16:44 Temperature Pulse Rate Respiratory Rate 18 Blood Pressure Pulse Oximetry Oxygen Delivery Method BMI result Body Mass Index 39.1 vss Appearance: Alert.? Oriented X3.? No acute distress.? Head: Normocephalic, atraumatic, no step-offs or deformities Eyes: Pupils equal, round and reactive to light.? Neck: Normal inspection.? Neck supple.? CVS: Normal heart rate and rhythm.? Pulses normal.? Respiratory: No respiratory distress.? Breath sounds normal.? Abdomen: Soft and nontender.? Skin: Skin warm and dry.? Normal skin color.? Normal skin turgor.? Extremities: No lower extremity edema.? No calf ttp. 5/5 strength to bilateral upper and lower extremities Back: right lower lumbar paraspinous ttp on exam and ttp over right hip. No midline pain. No saddle anesthesias. Neuro: Oriented X 3.? No motor deficit.? No sensory deficit. CN 2-12 intact Course Reevaluation(s) Reevaluation #1: Patient's UA clean. CT head no evidence of acute intracranial hemorrhage or edematous territorial infarction mild underlying microangiopathy. MC to severe right hip degenerative changes with mild anterior subluxation of femoral head right hip effusion multilevel severe degenerative changes of the lumbar spine. Patient is adamant that she wants to leave. Will discuss this case with my attending as she is requiring multiple pain control agents to keep patient comfortable and she is unable to ambulate unsure how patient would get out of the department. My attending will evaluate patient Time: 17:42 Reevaluation #2: My attending evaluated patient, patient willing to stay for physical therapy and case management evaluation. Time: 17:43 Medications Administered Discontinued Medications Generic Name Dose Route Start Last Admin Trade Name Freq PRN Reason Stop Dose Admin Diazepam 2 mg 12/13/23 14:32 12/13/23 14:47 Diazepam 2 Mg Tablet PO 12/13/23 14:33 2 mg ONCE ONE Administration Diazepam 2 mg 12/13/23 16:34 12/13/23 16:44 Diazepam 2 Mg Tablet PO 12/13/23 16:35 2 mg ONCE ONE Administration Fentanyl 100 mcg 12/13/23 16:34 12/13/23 16:44 Fentanyl Citrate/Pf 100 Mcg/2 Ml Vial IVPUSH 12/13/23 16:35 100 mcg ONCE ONE Administration Protocol Hydromorphone HCl 2 mg 12/13/23 16:06 12/13/23 16:17 Hydromorphone Hcl 2 Mg/Ml Vial IVPUSH 12/13/23 16:07 2 mg ONCE ONE Administration Protocol Ketorolac Tromethamine 30 mg 12/13/23 13:18 12/13/23 13:28 Ketorolac Tromethamine 30 Mg/Ml Vial IM 12/13/23 13:19 30 mg ONCE ONE Administration Lidocaine 1 patch 12/13/23 13:18 12/13/23 13:29 Lidocaine 4 % Patch Adh..Patch TRANSDERMA 12/13/23 13:19 1 patch ONCE ONE Administration Protocol Morphine Sulfate 15 mg 12/13/23 14:32 12/13/23 14:46 Morphine Sulfate Immed Release 15 Mg Tablet PO 12/13/23 14:33 15 mg ONCE ONE Administration Medical Decision Making Medical Decision Making [facility] Narrative: 50-year-old female presents with right lower back pain with radiation to right lower extremity ongoing for past week. Patient fell 2 days ago was unable to get up secondary to pain. No head strike or loss of consciousness Physical exam significant for right lower lumbar paraspinous ttp on exam and ttp over right hip. No midline pain. No saddle anesthesias. History and physical exam concerning for sciatica versus lumbar radiculopathy. Less likely bursitis, ischemic limb, cauda equina, cord compression, epidural abscess. No signs of trauma head, neck, chest, abdomen . Will rule out fractures of lumbar spine. Plan imaging, pain control Differential Diagnosis Differential Diagnoses: The differential diagnosis associated with the presentation includes History and physical exam concerning for sciatica versus lumbar radiculopathy. Less likely bursitis, ischemic limb, cauda equina, cord compression, epidural abscess. No signs of trauma head, neck, chest, abdomen . Will rule out fractures of lumbar spine. Admission/Observation Consideration of admission/observation: Escalation of care including admission/observation considered No indication Lab Data [facility] Lab Attestation statement: I reviewed the patient's lab results. Labs: Lab Results 12/13/23 Range/Units 15:54 Urine Color Yellow Urine Appearance Clear Urine pH 5.5 (5.0-9.0) Ur Specific [place] 1.025 (1.005-1.025) Urine Protein Negative (Neg-Trace) mg/dL Urine Glucose (UA) Negative (Negative) mg/dL Urine Ketones Negative (Negative) mg/dL Urine Blood Negative (Negative) Urine Nitrite Negative (Negative) Ur Leukocyte Esterase Negative (Negative) Independent Interpretation I performed an independent interpretation of an: CT Scan (CT/CT abdomen pelvis wo IV con IMPRESSION: 1. Severe right hip degenerative changes with mild anterior subluxation of the femoral head. Right hip effusion. 2. Multilevel severe degenerative changes of the lumbar spine. Fleischner guidelines were followed.) Radiology Impression Discussion of test interpretation with radiology: I have reviewed the radiologist's reading. External Record Review External record reviewed: Office record, Outpatient record, Prior outpatient labs, Prior outpatient radiology and Primary care record Tests considered The following testing was considered but not selected: No red flag symptoms no indication for MRI Prescription Management I considered prescription management with: Pain Medication Chronic Conditions Patient?s care impacted by: Other (copd, obesity, ) Critical Care Time Critical Care Time Critical Care Time: Yes Total Critical Care Time: 45 Attestation: I attest to this time spent taking care of the patient, obtaining history, physical, reviewing labs, imaging, treatment of patients condition +/- specialist/hospitalist consult Discharge Plan Discharge Clinical Impression: Hip subluxation, Effusion of hip, Osteoarthritis Patient Disposition: Still a Patient Prescriptions: No Action venlafaxine 150 mg capsule,extended release 24hr 150 mg PO BID Qty: 180 1RF Breztri Aerosphere 160-9-4.8 mcg/actuation HFA aerosol inhaler 2 inh inhalation BID Qty: 32.1 1RF clonidine HCl 0.1 mg tablet 0.1 mg PO BID Qty: 180 1RF gabapentin 300 mg capsule 600 mg PO TID 90 Days Qty: 540 0RF buprenorphine-naloxone [Suboxone] 4-1 mg film 1 film sublingual DAILY Rx Instructions: administer with suboxone 2mg; total dose 6mg nabumetone 750 mg tablet 750 mg PO BID PRN (Reason: pain) 30 Days Qty: 60 0RF tizanidine 4 mg capsule 4 mg PO Q8H PRN (Reason: muscle spasticity) 4 Days Qty: 12 0RF Rx Instructions: SIDE-EFFECTS IS DROWSINESS. DO NOT TAKE AT WORK OR WHILE DRIVING nicotine 21 mg/24 hr patch 24 hour 1 patch transdermal Q24H 28 Days Qty: 28 2RF ipratropium-albuterol 0.5 mg-3 mg(2.5 mg base)/3 mL solution for nebulization 3 ml inhalation Q4-6H PRN (Reason: wheezing) Qty: 90 0RF tizanidine 2 mg capsule 2 mg PO TID PRN (Reason: muscle spasticity) Qty: 20 0RF Rx Instructions: Can increased dose to 2 capsules every 8-12 hours as needed to a maximum dose of 24 mg per day. Do not drive or do safety sensitive work while using this medication Print Language: Ukrainian
[2023-12-13] MEDS: Morphine Sulfate Immed Release 15 MG TABLET PO ×3 (14:46→21:24)
[2023-12-13] MEDS: diazePAM 2 MG TABLET PO ×2 (14:47→16:44)
[2023-12-13 16:00] LABS: Appearance Urine Clear; Color Urine Yellow; Glucose Urine UA Negative (Negative); Leukocyte Esterase Urine Negative (Negative); Nitrite Urine Negative (Negative); PH 5.5 (5.0-9.0); Specific Gravity - Urine 1.025 (1.005-1.025); Urine Blood Negative (Negative); Urine Ketones Negative (Negative); Urine Protein Negative (Neg-Trace)
[2023-12-13 16:16] VITALS: BP 119/56; PULSE 87; RESP 13; TEMP 36.7; O2SAT 96
[2023-12-13 16:17] VITALS: RESP 19
[2023-12-13] MEDS: HYDROmorphone HCl 2 MG/ML VIAL IVPUSH (16:17)
[2023-12-13 16:44] VITALS: RESP 18
[2023-12-13] MEDS: fentaNYL citrate/PF 100 MCG/2 ML VIAL IVPUSH (16:44)
--- NOTE | 2023-12-13 17:21 | PC.NURSE ---
Late entry: pt presents to ED from home, reports right hip pain X 1.5 weeks. Also reports falling onto right hip a couple of days ago , denies head hit or LOC. Reports pain is significantly worse, unable to ambulate or move leg well. Alert and oriented, breathing even and unlabored, skin warm and dry. Pt in significant pain.
[2023-12-13] MEDS: Acetaminophen 325 MG TABLET PO ×2 (17:58→21:05)
--- NOTE | 2023-12-13 17:59 | PC.NURSE ---
Pt medicated per MAR ongoing for pain
--- NOTE | 2023-12-13 17:59 | PC.NURSE ---
Plan for PT/ Case management per provider
--- NOTE | 2023-12-13 20:20 | PC.NURSE ---
pt reporting pain at this time, this RN explained to pt when she will be due for medications, pt agreeable to plan of care.
[2023-12-13 20:26] VITALS: BP 109/48; PULSE 92; RESP 20; TEMP 36.6; O2SAT 97
--- NOTE | 2023-12-13 21:11 | PC.NURSE ---
pt reporting 8/10 pain at this time, pt medicated per mar with scheduled dose of tylenol. aware of pt pain level, orders as follows.
[2023-12-14] VITALS: BP 134/79; PULSE 89; RESP 16; TEMP 36.8; O2SAT 95
[2023-12-14] MEDS: Morphine Sulfate Immed Release 15 MG TABLET PO ×2 (00:31→04:51)
--- NOTE | 2023-12-14 00:33 | PC.NURSE ---
pt c/o 11/19 pain in R-hip. Medicated with PRN morphine per JUN.
--- NOTE | 2023-12-14 01:02 | MHC.EDTECH ---
Late Entry, This tech took over care of patient at 2300,rounds and vitals completed,call croft in reach
--- NOTE | 2023-12-14 01:03 | MHC.EDTECH ---
Patient placed in a hospital bed for comfort, Placed a pure-wick on patient,patient tolerated well.call croft in reach
[2023-12-14] MEDS: Acetaminophen 325 MG TABLET PO ×3 (02:17→09:07)
[2023-12-14 04:49] VITALS: BP 139/71; PULSE 73; RESP 16; TEMP 36.8; O2SAT 95
--- NOTE | 2023-12-14 04:52 | PC.NURSE ---
Patient woke up with 10/10 R-hip pain. Medicated with Morphine per JUN.
--- NOTE | 2023-12-14 04:53 | MHC.EDTECH ---
This tech moved patient to ED#15, emptied 300MLS of clear yellow urine from canister, vitals taken,call croft in reach
--- NOTE | 2023-12-14 05:19 | PC.NURSE ---
this rn assumed care of pt, pt moved from emc to main ed at this time, pt in hospital bed. pt allowed to sleep, respirations even and unlabored.
--- NOTE | 2023-12-14 08:11 | PC.NURSE ---
this RN resumed care of pt at 0645. a&ox4. vss and up to date. pt recently had PT evaluation completed. pt needed assistance to get out bed and then originally refused to ambulate w/ walker (baseline) as she states she was unable to do so. pt then ambulated approx. 5 feet w/ physical therapist until she said that she said that she was feeling dizzy/lightheaded and needed to get back into bed. PT recommending STR. pt now back in hospital bed resting comfortably in no apparent distress. no sob/wob noted. respirations even/unlabored. bed alarm turned on for safety precautions. plan of care ongoing. call croft placed within reach.
--- NOTE | 2023-12-14 08:30 | PC.NURSE ---
completed medication reconciliation with patient while bedside. will administer medication when able.
--- NOTE | 2023-12-14 09:08 | PC.NURSE ---
pt medicated per provider order. swab obtained/sent to lab. plan of care ongoing.
[2023-12-14 09:45] LABS: COVID-19 Test Negative (Negative); IDNOW Serial# 152EDE1D
--- NOTE | 2023-12-14 11:18 | PC.NURSE ---
report given to GIOVANNI Hall in overflow at this time.
[2023-12-14 12:30] VITALS: BP 147/80; PULSE 87; RESP 16; TEMP 37; O2SAT 94
[2023-12-14 14:14] VITALS: BP 147/80; PULSE 87; RESP 18; TEMP 37; O2SAT 98
== END 2023-12-14 14:15 | disposition home or self-care (01) ==
PROVIDERS: Physician Assistant; Emergency Provider Emergency Medicine; PCP Nurse Practitioner Family
DX: S73.001A Unspecified subluxation of right hip, initial encounter (principal); S09.90XA Unspecified injury of head, initial encounter; X58.XXXA Exposure to other specified factors, initial encounter; Y93.9 Activity, unspecified; Y92.9 Unspecified place or not applicable; Y99.9 Unspecified external cause status; M19.09 Primary osteoarthritis, other specified site; M54.50 Low back pain, unspecified; M25.551 Pain in right hip
CPT/HCPCS: 70450; 74176; 81003; 87635; 96372; 96374; 96375; 97162; 99285; J1170; J1885; J3010

== ENCOUNTER 2023-12-30 13:53 | Outpatient (AMB) | payer OTHER, SELFPAY ==
--- NOTE | 2023-12-30 14:11 | MHC.OFFVIS ---
Intake Visit Reasons: ov- RT hip OA, last injection 11/01/23 Intake Note: Rody is a 58 year old female who presents today for a follow up of her right hip bursitis/Moderate OA. Patient was last seen with Sree on 11/01/23 and was given a bursa injection. Patient reports that this injection was not helpful at all and her pain has become rather intolerable. She was given an Rx of celebrex by Sree Allergies omeprazole [From PRILOSEC] Allergy (Severe, Verified 12/13/23 11:01) ANAPHYLAXIS lansoprazole [Prevacid] Allergy (Unknown, Verified 12/13/23 11:01) anaphylaxis cyclobenzaprine [From Flexeril] Allergy (Verified 12/13/23 11:01) Rash HPI HPI ov- RT hip OA, last injection 11/01/23: Details: Rody is a 58 year old female who presents today for a follow up of her right hip bursitis/Moderate OA. Patient was last seen with Sree on 11/01/23 and was given a bursa injection. Patient reports that this injection was not helpful at all and her pain has become rather intolerable. She was given an Rx of celebrex by Sree. SHe describes pain radiating down her leg with numbness and tingling as well as groin pain. [facility] Medical History Lumbar spondylosis Trochanteric bursitis of right hip COPD (chronic obstructive pulmonary disease) Exercise hypoxemia Nicotine dependence, cigarettes, uncomplicated Dyslipidemia Obesity History of sepsis Urinary frequency Anxiety associated with depression Bilateral hip pain Lower back pain Somatic dysfunction of left sacroiliac joint Surgical History History of section Family History Father Substance use disorder Mother Substance use disorder Mental health disorder Maternal Grandmother Substance use disorder Mental health disorder Social History Household Members: Spouse and Friend(s) Housing: House Do you presently have visiting nurse or other home services: No Alcohol intake: current Alcohol intake frequency: holidays/special occasions only Patient Tobacco Use Status: Current everyday Tobacco user Tobacco use type: Cigarette Cigarette Packs Per Day: 1 Cigarettes Per Day: 20.0 Years Smoked: (onset 23yo, 1ppd x 34yrs, 30pyh) e-Cigarette/Vaping Use: Never Used Second Hand Smoke Exposure: No Substance Use Type: Heroin service: No Current occupational status: employed Current occupation: [employer] Cognitive needs: No Hearing needs: No Vision needs: No Physical Exam Extrem Other: + impingement right hip with antalgic gait Results Reviewed Results Reviewed: Moderate to severe degenerative OA right hip. Assessment & Plan Assessment & Plan (1) Degenerative arthritis of hip: Code(s): M16.9 - Osteoarthritis of hip, unspecified Category: Medical Qualifiers: Osteoarthritis type: primary Laterality: right Qualified Code(s): M16.11 - Unilateral primary osteoarthritis, right hip Plan: This is a 58-year-old woman with arthritis of the right hip. She smokes cigarettes and has COPD as well as elevated LFTs and a history of urinary tract incontinence. She describes both hip and lumbar spine pathology. At this moment in time I recommend physical therapy an MRI of her lumbar spine. She states she is taking gabapentin and can take this 900 mg t.i.d. but I do recommend she talk with her prescribing MD. I would like to see her back at after the results of her lumbar spine MRI. Ultimately I think she would benefit from hip arthroplasty but there are some risk factors that exist and some clarification that I recommend between her back in her hip as which is the primary pain generator. (2) Lumbar spondylosis: Code(s): M47.816 - Spondylosis without myelopathy or radiculopathy, lumbar region Category: Medical Plan: MRI ordered. Orders: Orders MR lumbar spine wo con Today M16.11 - Unilateral primary osteoarthritis, right hip, M47.816 - Spondylosis without myelopathy or radiculopathy, lumbar region PT Evaluation and Treatment Today M16.11 - Unilateral primary osteoarthritis, right hip, M47.816 - Spondylosis without myelopathy or radiculopathy, lumbar region Coding Level of Care Code Est Pt Level 4 (86810) Diagnoses Primary osteoarthritis of right hip M16.11 Osteoarthritis type: primary Laterality: right Lumbar spondylosis M47.816
== END 2023-12-30 15:48 | disposition home or self-care (01) ==
PROVIDERS: PCP Nurse Practitioner Family; Visit Provider Orthopaedic Surgery
DX: M16.11 Unilateral primary osteoarthritis, right hip (principal); M47.816 Spondylosis without myelopathy or radiculopathy, lumbar region
CPT/HCPCS: 99214

== ENCOUNTER → 2023-12-30 13:53 | Outpatient (BNVA) | payer SELFPAY | PROVIDERS: PCP Nurse Practitioner Family; Visit Provider Orthopaedic Surgery | DX: M16.11 Unilateral primary osteoarthritis, right hip (principal); M47.816 Spondylosis without myelopathy or radiculopathy, lumbar region | CPT/HCPCS: 99212 ==

== ENCOUNTER 2024-01-10 03:22 | Inpatient (IN) | payer OTHER, SELFPAY ==
[2024-01-10] VITALS (11 sets, daily range): BP systolic 100–140; BP diastolic 57–90; PULSE 76–91; RESP 13–22; TEMP 36.4–37.1; O2SAT 90–97; BMI 43.6; BMI 39.7
--- NOTE | ~2024-01-10 | CT_ITS ---
EXAMINATION: CT HEAD WITHOUT CONTRAST CLINICAL INFORMATION: Change in mental status. COMPARISON: December 13, 2023 TECHNIQUE: Contiguous axial imaging was performed from the skull base to vertex without intravenous administration of contrast. This CT examination was performed using dose optimization techniques as appropriate, variously including the following: *Automated exposure control *Adjustment of mA and/or kV according to patient size (this includes techniques or standardized protocols for targeted exams where dose is matched to indication/reason for exam; i.e. extremities or head) *Use of iterative reconstruction technique DLP: 711 mGy-cm FINDINGS: There is no evidence of acute intracranial hemorrhage or large evolving territorial infarction. No mass effect or midline shift is seen. Van to white matter differentiation is preserved. No extra-axial fluid collections are identified. No hydrocephalus. The osseous structures and soft tissues are intact. The mastoid air cells and visualized portions of the paranasal sinuses are well aerated. CT/CT head/brain wo IV con IMPRESSION: No acute intracranial pathology. Electronically signed by: George Cazares MD 01/10/2024 08:27 AM EDT
--- NOTE | ~2024-01-10 | US_ITS ---
EXAMINATION: US TRIPLEX LOWER EXTREMITY, BILATERAL CLINICAL INFORMATION: Bilateral lower extremity swelling. COMPARISON: None available. TECHNIQUE: Color-flow triplex imaging with spectral analysis and compression Doppler were performed on the bilateral lower extremities. FINDINGS: Respiratory variation, normal compression and augmented flow are noted throughout the bilateral lower extremities. The visualized common femoral vein, superficial femoral vein, profunda femoral vein, popliteal vein and midcalf peroneal and posterior tibial venous segments show no evidence of deep venous thrombosis bilaterally. There is a 4.1 x 0.4 x 3.2 cm right popliteal fossa cyst. There is edematous changes in the left popliteal fossa. US/US venous duplex LE BI IMPRESSION: 1. No evidence of deep venous thrombosis involving the bilateral lower extremities. 2. There is a 4.1 x 0.4 x 3.2 cm right popliteal fossa cyst. There is edematous changes in the left popliteal fossa. Electronically signed by: Alex Olmstead MD 01/10/2024 06:29 AM EDT
--- NOTE | ~2024-01-10 | XR_ITS ---
EXAMINATION: XR CHEST CLINICAL INFORMATION: Cough. Dyspnea. COMPARISON: April 11, 2022 TECHNIQUE: Frontal view of the chest was obtained. FINDINGS: The lung volumes are low and the patient is mildly rotated. The cardiomediastinal silhouette is stable. There appears to be minimal subsegmental atelectasis or scarring at the right lung base. The lungs are otherwise clear. There are no significant pleural effusions. The bony structures and the soft tissues are unremarkable. XR/XR chest 1V IMPRESSION: Low lung volumes. Minimal subsegmental atelectasis or scarring at the right lung base. No other significant abnormality seen. Electronically signed by: Alex Olmstead MD 01/10/2024 05:18 AM EDT
--- NOTE | 2024-01-10 03:40 | ECG_ITS ---
Test Reason : SOB Blood Pressure : / mmHG Vent. Rate : 084 BPM Atrial Rate : 084 BPM P-R Int : 130 ms QRS Dur : 090 ms QT Int : 374 ms P-R-T Axes : 057 007 008 degrees QTc Int : 441 ms Normal sinus rhythm Nonspecific T wave abnormality Abnormal ECG When compared with ECG of 11-APR-2022 23:10, Criteria for Septal infarct are no longer Present Nonspecific T wave abnormality now evident in Inferior leads T wave amplitude has decreased in Lateral leads Referred By: Gemma Cornelius Electronically Signed By:SHANIQUA RIVERA
--- NOTE | 2024-01-10 03:47 | ED.AMS ---
HPI - Altered Mental Status General Chief Complaint: General Medical Stated Complaint: SCIATIC PAIN, RIGHT HIP LOCATION, HX OF COPD Time Seen by Provider: 01/10/24 03:37 Source: patient, EMS and old records reviewed Mode of arrival: EMS Limitations: other (poor historian) History of Present Illness ED Provider: MATT HPI narrative: 58 yo female with PMH of chronic pain on gabapentin, HLD, depression, respiratory failure per pulm notes COPD on PRN 2L NC O2 at home just seen her 12/12 after a fall had R femoral head subluxation and joint effusion offered rehab but DC home. On 12/29 she was seen by Dr. Sweeney who reviewed CT scan and recommended MRI of lumbar spine and hip arthroplasty in the future once her risk factors were better assessed. She comes in today as she can no longer take the pain and she states it is just her and her at home. She then nods off during the interview and asks the RN who she is again. She then states I think I am confused. I know I am off but I don't know why. She then reports an increase in cough, wheezing and feeling more short of breath. She also states her legs are very swollen and she has a fine red rash on them. MD complaint: altered mental status and other (leg pain, back pain) Onset (ago): month(s) (September back pain but worsening breathing since last night) Severity: moderate Consistency of symptoms: waxing and waning Context: other (reportedly fell but she states she has had pain since the Summer) Associated symptoms: cough and weakness Related Data Home Medications ?Medication ?Instructions ?Recorded ?Confirmed buprenorphine 4 mg-naloxone 1 mg 1 film sublingual DAILY 10/30/20 12/14/23 sublingual film (Suboxone) Previous Rx's ?Medication ?Instructions ?Recorded venlafaxine 150 mg 150 mg PO BID #180 caps 06/12/23 capsule,extended release 24 hr nicotine 21 mg/24 hr daily 1 patch transdermal Q24H SMOKING 06/21/23 transdermal patch 28 days #28 ea Breztri Aerosphere 160 2 inh inhalation BID #32.1 grams 09/16/23 mcg-9mcg-4.8mcg/actuation HFA aerosol inhaler (bbgdzerovl-tbzxmvse-redzidrlgc) clonidine HCl 0.1 mg tablet 0.1 mg PO BID #180 tabs 09/16/23 tizanidine 2 mg capsule 2 mg PO TID PRN muscle spasticity 09/18/23 #20 caps tizanidine 4 mg capsule 4 mg PO Q8H PRN muscle spasticity 10/12/23 4 days #12 caps nabumetone 750 mg tablet 750 mg PO BID PRN pain 30 days #60 11/24/23 tabs prednisone 50 mg tablet 50 mg PO DAILY 6 days #6 tabs 12/16/23 celecoxib 200 mg capsule (Celebrex) 200 mg PO BID 30 days #60 caps 12/22/23 gabapentin 600 mg tablet 600 mg PO TID 90 days #270 tabs 12/24/23 ipratropium 0.5 mg-albuterol 3 mg 3 ml inhalation Q4-6H PRN wheezing 01/07/24 (2.5 mg base)/3 mL nebulization #90 mL soln Allergies Allergy/AdvReac Type Severity Reaction Status Date / Time omeprazole [From PRILOSEC] Allergy Severe ANAPHYLAXIS Verified 01/10/24 04:05 lansoprazole [Prevacid] Allergy Unknown anaphylaxis Verified 01/10/24 04:05 cyclobenzaprine Allergy Rash Verified 01/10/24 04:05 [From Flexeril] Review of Systems Review of Systems: Constitutional : No Fever, No Chills, No Fatigue ENT/Mouth : No sore throat, No Rhinorrhea Eyes: No Eye Pain, No Swelling, No Redness Cardiovascular : No Chest Pain, No SOB, No Dyspnea on Exertion, pos edema Respiratory : No Cough, No Sputum Gastrointestinal : No Nausea, No Vomiting, No Diarrhea, No abdominal Pain Genitourinary : No Dysuria, No Urinary Frequency, No Hematuria, Musculoskeletal : pos joint pain, No Myalgias, No Joint Swelling Skin : No Skin Lesions, pos rash Neuro : pos Weakness, No Numbness, No Dizziness, no Headache, pos confusion Psych : No Anxiety/Panic, No Depression All other systems reviewed and are negative PMFSH Past Medical History Attestation statement: The following information was validated with the patient. Source: old records reviewed Medical History Lumbar spondylosis Trochanteric bursitis of right hip COPD (chronic obstructive pulmonary disease) Exercise hypoxemia Nicotine dependence, cigarettes, uncomplicated Dyslipidemia Obesity History of sepsis Urinary frequency Anxiety associated with depression Bilateral hip pain Lower back pain Somatic dysfunction of left sacroiliac joint Surgical History History of section Family History Family History Father Substance use disorder Mother Substance use disorder Mental health disorder Maternal Grandmother Substance use disorder Mental health disorder Social History Social History Household Members: Spouse and Friend(s) Housing: House Do you presently have visiting nurse or other home services: No Alcohol intake: current Alcohol intake frequency: holidays/special occasions only Patient Tobacco Use Status: Current everyday Tobacco user Tobacco use type: Cigarette Cigarette Packs Per Day: 1 Cigarettes Per Day: 20.0 Years Smoked: (onset 23yo, 1ppd x 34yrs, 30pyh) Smoked in Last 30 Days: Yes e-Cigarette/Vaping Use: Never Used Second Hand Smoke Exposure: No Use of substances other than those prescribed or required for medical reasons: No Substance Use Type: Heroin Advance Directives: No Advance Directives Information Provided: Yes Patient : No service: No Current occupational status: employed Current occupation: [employer] Cognitive needs: No Hearing needs: No Vision needs: No Physical Exam ED Vital Signs: Vital Signs - 24 hr 01/10/24 03:45 01/10/24 04:37 Temperature 98.1 F Pulse Rate 91 78 Respiratory Rate 22 H 22 H Blood Pressure 135/90 H Pulse Oximetry 95 Oxygen Delivery Method Nasal Cannula BMI result Body Mass Index 43.6 Appearance: Seems delerious at times, nodding off but then waking up slightly startled and confused, with repeat questioning she is oriented X3. Mild acute distress. Eyes: Pupils equal, round and reactive to light. ENT: Pharynx normal. araumatic Neck: Normal inspection. Neck supple. CVS: Normal heart rate and rhythm. Pulses normal. Respiratory: No respiratory distress. Breath sounds diminished throughout with audible exp wheezes Abdomen: Soft and nontender. Skin: Skin warm and dry. Normal skin color. Normal skin turgor. Extremities: 1-2+ pitting bilateral lower extremity edema. pulses intact, pain with any ROM testing in R leg cannot move the leg without pain Neuro: Oriented X 3. No motor deficit. No sensory deficit. Course Course Course Narrative: suboxone not on her [employer] she must be using it from a non prescription signed out to Dr. Green pending work up Medications Administered Discontinued Medications Generic Name Dose Route Start Last Admin Trade Name Amairani PRN Reason Stop Dose Admin Albuterol Sulfate 7.5 mg/ 0 mg 01/10/24 04:03 01/10/24 04:35 Albuterol/Ipratropium 3 ml INHALE 01/10/24 04:04 1 each ONCE ONE Administration Ceftriaxone Sodium 1 gm/ 50 mls @ 100 mls/hr 01/10/24 03:40 01/10/24 05:25 Sodium Chloride IV 01/10/24 04:09 Infused ONCE ONE Infusion Methylprednisolone Sodium Succinate 60 mg 01/10/24 03:40 01/10/24 04:52 Methylprednisolone Sod Succ 125 Mg/2 Ml Vial IVPUSH 01/10/24 03:41 60 mg ONCE ONE Administration Medical Decision Making Medical Decision Making [facility] Narrative: 58 yo female with PMH of chronic pain on gabapentin, HLD, depression, respiratory failure per pulm notes COPD on PRN 2L NC O2 at home here with complaint of chronic pain in R hip and buttock but no new trauma. She is not a good historian at all she has a rash to the legs that is red and lacy but not warm and looks more like venous stasis dermatitis. I have ordered CT head for ICH, CXR, UA, tox labs, VBG, IV steroids and bronch protocol along with IV ceftriaxone for COPD exacerbation. US of LE ordered to rule out DVT as well. Back and hip pain is chronic doubt epidural abscess will obtain ESR to assess Differential Diagnosis Differential Diagnoses: The differential diagnosis associated with the presentation includes CO2 retention, medications misuse of gabapentin, COPD exacerbation, chronic hip pain, lumbar radiculopathy does not relay cauda equina symptoms, delerium Admission/Observation Consideration of admission/observation: Escalation of care including admission/observation considered Lab Data [facility] Lab Attestation statement: I reviewed the patient's lab results. 01/10/24 04:06 01/10/24 04:29 Labs: Lab Results 01/10/24 01/10/24 01/10/24 Range/Units 04:06 04:07 04:29 WBC 11.8 H (4.8-10.8) X10*3/uL RBC 5.12 (4.20-5.50) X10*6/uL Hgb 14.8 (12.0-16.0) g/dl Hct 45.6 (37.0-47.0) % MCV 89.1 (80.0-98.0) fL MCH 28.9 (27.0-33.0) pg MCHC 32.5 (31.0-35.0) g/dl RDW 15.6 (11.0-16.0) % Plt Count 273 (160-400) X10*3/uL MPV 10.1 (9.4-12.3) fL Immature Gran % (Auto) Cancelled Neut % (Auto) Cancelled Lymph % (Auto) Cancelled [place] % (Auto) Cancelled Eos % (Auto) Cancelled Baso % (Auto) Cancelled Lymph # (Auto) Cancelled [place] # (Auto) Cancelled Eos # (Auto) Cancelled Baso # (Auto) Cancelled Abs Immat Gran (auto) Cancelled Absolute Neuts (auto) Cancelled Absolute Nucleated RBC 0.060 H (0.0-0.012) X10*3/uL Nucleated RBC % (auto) 0.5 H (0.0-0.2) /100WBC Neutrophils % (Manual) 72 (45-73) % Band Neutrophils % 7 H (3-5) % Lymphocytes % (Manual) 7 L (20-40) % Monocytes % (Manual) 7 (2-11) % Eosinophils % (Manual) 5 H (0-4) % Metamyelocytes % 2 % Abs Neuts (Manual) 9.3 H (2.0-8.3) X10*3/uL Lymphocytes # (Manual) 0.8 L (1.2-4.9) X10*3/uL Monocytes # (Manual) 0.8 (0.1-1.2) X10*3/uL Eosinophils # (Manual) 0.6 H (0.0-0.4) X10*3/uL Metamyelocytes # 0.2 X10*3/uL Toxic Vacuolation PRESENT Platelet Estimate NORMAL (NORMAL) Plt Morphology Comment NORMAL RBC Morphology NOTED Polychromasia 2+ (3-5) /OIF Tear Drop Cells 1+ (0-2) /OIF Schistocytes 1+ (0-2) /OIF ESR 18 (0-20) MM/HR VBG pH (7.32-7.43) VBG pCO2 mmHg VBG pO2 mmHg VBG HCO3 (22-26) mmol/L VBG O2 Saturation % VBG Base Excess mmol/L Sodium 140 (135-145) mmol/L Potassium 3.6 (3.3-5.1) mmol/L Chloride 100 (96-108) mmol/L Carbon Dioxide 27 (22-29) mmol/L Anion Gap 17 (12-20) BUN 22 H (9-16) mg/dL Creatinine 0.77 (0.5-1.4) mg/dL Estim Creat Clear Calc 85.2 Estimated GFR > 60 Random Glucose 83 (60-115) mg/dL Lactic Acid 1.3 (0.5-2.0) mmol/L Calcium 9.0 D (8.4-10.2) mg/dL Magnesium 1.8 (1.6-2.6) mg/dL Total Bilirubin 0.6 (0.0-1.0) mg/dL Direct Bilirubin 0.4 (0.0-0.5) mg/dL AST 54 H (5-31) U/L ALT 199 H (0-31) U/L Alkaline Phosphatase 128 H (39-117) U/L Ammonia 27 (13-55) umol/L Troponin I High Sens 7.1 D (<3.5-17.0) ng/L C-Reactive Protein 6.37 H (< or = 0.50) mg/dL B-Natriuretic Peptide 386 H (<100) pg/mL Total Protein 6.5 (6.5-8.0) g/dL Albumin 3.3 L (3.5-5.0) g/dL Lipase 20 (8-78) U/L Procalcitonin 0.04 ng/mL Urine Opiates Screen (Not Detect) Ur Buprenorphine Scrn (Not Detect) ng/mL Ur Oxycodone Screen (Not Detect) ng/mL Urine Methadone Screen (Not Detect) ng/mL Urine Fentanyl Screen (Not Detect) Ur Barbiturates Screen (Not Detect) Ur Phencyclidine Scrn (Not Detect) Ur Amphetamines Screen (Not Detect) U Benzodiazepines Scrn (Not Detect) Urine Cocaine Screen (Not Detect) U Marijuana (THC) Screen (Not Detect) Ethyl Alcohol < 10 mg/dL Influenza Type A (PCR) NEGATIVE (Negative) Influenza Type B (PCR) NEGATIVE (Negative) RSV RNA Qual (PCR) NEGATIVE (Negative) SARS-CoV-2 RNA (RT-PCR) NEGATIVE (Negative) 01/10/24 01/10/24 Range/Units 04:35 06:38 WBC (4.8-10.8) X10*3/uL RBC (4.20-5.50) X10*6/uL Hgb (12.0-16.0) g/dl Hct (37.0-47.0) % MCV (80.0-98.0) fL MCH (27.0-33.0) pg MCHC (31.0-35.0) g/dl RDW (11.0-16.0) % Plt Count (160-400) X10*3/uL MPV (9.4-12.3) fL Immature Gran % (Auto) Neut % (Auto) Lymph % (Auto) [place] % (Auto) Eos % (Auto) Baso % (Auto) Lymph # (Auto) [place] # (Auto) Eos # (Auto) Baso # (Auto) Abs Immat Gran (auto) Absolute Neuts (auto) Absolute Nucleated RBC (0.0-0.012) X10*3/uL Nucleated RBC % (auto) (0.0-0.2) /100WBC Neutrophils % (Manual) (45-73) % Band Neutrophils % (3-5) % Lymphocytes % (Manual) (20-40) % Monocytes % (Manual) (2-11) % Eosinophils % (Manual) (0-4) % Metamyelocytes % % Abs Neuts (Manual) (2.0-8.3) X10*3/uL Lymphocytes # (Manual) (1.2-4.9) X10*3/uL Monocytes # (Manual) (0.1-1.2) X10*3/uL Eosinophils # (Manual) (0.0-0.4) X10*3/uL Metamyelocytes # X10*3/uL Toxic Vacuolation Platelet Estimate (NORMAL) Plt Morphology Comment RBC Morphology Polychromasia /OIF Tear Drop Cells /OIF Schistocytes /OIF ESR (0-20) MM/HR VBG pH 7.38 (7.32-7.43) VBG pCO2 53 mmHg VBG pO2 46 mmHg VBG HCO3 32 H (22-26) mmol/L VBG O2 Saturation 70.0 % VBG Base Excess 6.0 mmol/L Sodium (135-145) mmol/L Potassium (3.3-5.1) mmol/L Chloride (96-108) mmol/L Carbon Dioxide (22-29) mmol/L Anion Gap (12-20) BUN (9-16) mg/dL Creatinine (0.5-1.4) mg/dL Estim Creat Clear Calc Estimated GFR Random Glucose (60-115) mg/dL Lactic Acid (0.5-2.0) mmol/L Calcium (8.4-10.2) mg/dL Magnesium (1.6-2.6) mg/dL Total Bilirubin (0.0-1.0) mg/dL Direct Bilirubin (0.0-0.5) mg/dL AST (5-31) U/L ALT (0-31) U/L Alkaline Phosphatase (39-117) U/L Ammonia (13-55) umol/L Troponin I High Sens (<3.5-17.0) ng/L C-Reactive Protein (< or = 0.50) mg/dL B-Natriuretic Peptide (<100) pg/mL Total Protein (6.5-8.0) g/dL Albumin (3.5-5.0) g/dL Lipase (8-78) U/L Procalcitonin ng/mL Urine Opiates Screen Not Detected (Not Detect) Ur Buprenorphine Scrn Positive H (Not Detect) ng/mL Ur Oxycodone Screen Not Detected (Not Detect) ng/mL Urine Methadone Screen Not Detected (Not Detect) ng/mL Urine Fentanyl Screen Not Detected (Not Detect) Ur Barbiturates Screen Not Detected (Not Detect) Ur Phencyclidine Scrn POSITIVE H (Not Detect) Ur Amphetamines Screen Not Detected (Not Detect) U Benzodiazepines Scrn Not Detected (Not Detect) Urine Cocaine Screen Not Detected (Not Detect) U Marijuana (THC) Screen Not Detected (Not Detect) Ethyl Alcohol mg/dL Influenza Type A (PCR) (Negative) Influenza Type B (PCR) (Negative) RSV RNA Qual (PCR) (Negative) SARS-CoV-2 RNA (RT-PCR) (Negative) Independent Interpretation I performed an independent interpretation of an: EKG, Plain X-Ray (no pneumonia), Ultrasound (no DVT) and CT Scan Interpretation: Rate: 84 Rhythm: NSR [place]: normal Normal P waves. Normal BRIGID. Normal QRS complex. ST T wave : no CRISSY, flat t waves aVL qTC: 441 prior studies: no acute ischemia The study has been interpreted contemporaneously by me. . Radiology Impression Discussion of test interpretation with radiology: I have reviewed the radiologist's reading. External Record Review External record reviewed: Inpatient record Discharge Plan Discharge Clinical Impression: Leukocytosis, Elevated LFTs, Acute exacerbation of chronic obstructive pulmonary disease, Substance abuse, Encephalopathy acute Patient Disposition: Still a Patient Prescriptions: No Action venlafaxine 150 mg capsule,extended release 24hr 150 mg PO BID Qty: 180 1RF Breztri Aerosphere 160-9-4.8 mcg/actuation HFA aerosol inhaler 2 inh inhalation BID Qty: 32.1 1RF clonidine HCl 0.1 mg tablet 0.1 mg PO BID Qty: 180 1RF prednisone 50 mg tablet 50 mg PO DAILY 6 Days Qty: 6 0RF celecoxib [Celebrex] 200 mg capsule 200 mg PO BID 30 Days Qty: 60 3RF gabapentin 600 mg tablet 600 mg PO TID 90 Days Qty: 270 0RF ipratropium-albuterol 0.5 mg-3 mg(2.5 mg base)/3 mL solution for nebulization 3 ml inhalation Q4-6H PRN (Reason: wheezing) Qty: 90 0RF buprenorphine-naloxone [Suboxone] 4-1 mg film 1 film sublingual DAILY Rx Instructions: administer with suboxone 2mg; total dose 6mg nabumetone 750 mg tablet 750 mg PO BID PRN (Reason: pain) 30 Days Qty: 60 0RF tizanidine 4 mg capsule 4 mg PO Q8H PRN (Reason: muscle spasticity) 4 Days Qty: 12 0RF Rx Instructions: SIDE-EFFECTS IS DROWSINESS. DO NOT TAKE AT WORK OR WHILE DRIVING nicotine 21 mg/24 hr patch 24 hour 1 patch transdermal Q24H 28 Days Qty: 28 2RF tizanidine 2 mg capsule 2 mg PO TID PRN (Reason: muscle spasticity) Qty: 20 0RF Rx Instructions: Can increased dose to 2 capsules every 8-12 hours as needed to a maximum dose of 24 mg per day. Do not drive or do safety sensitive work while using this medication Print Language: Cymraes
[2024-01-10 04:12] LABS: Hematocrit 45.6 % (37.0-47.0); Hemoglobin 14.8 g/dl (12.0-16.0); Mean Corpuscular HGB Conc 32.5 g/dl (31.0-35.0); Mean Corpuscular Hemoglobin 28.9 pg (27.0-33.0); Mean Corpuscular Volume 89.1 fL (80.0-98.0); Mean Platelet Volume 10.1 fL (9.4-12.3); NRBC Pct Auto 0.5 /100WBC (0.0-0.2); Platelet Count 273 X10*3/uL (160-400); Red Blood Count 5.12 X10*6/uL (4.20-5.50); Red Cell Distribution Width 15.6 % (11.0-16.0); White Blood Count 11.8 X10*3/uL (4.8-10.8)
[2024-01-10 04:23] LABS: Lactic Acid 1.3 mmol/L (0.5-2.0)
[2024-01-10 04:31] LABS: Band Neutrophils Percent 7 % (3-5); Eosinophils Absolute Manual 0.6 X10*3/uL (0.0-0.4); Eosinophils Percent Manual 5 % (0-4); Lymphocytes Absolute Manual 0.8 X10*3/uL (1.2-4.9); Lymphocytes Percent Manual 7 % (20-40); Metamyelocytes Absolute 0.2 X10*3/uL; Metamyelocytes Percent 2 %; Monocytes Absolute Manual 0.8 X10*3/uL (0.1-1.2); Monocytes Percent Manual 7 % (2-11); Neutrophils Absolute Manual 9.3 X10*3/uL (2.0-8.3); Neutrophils Percent Manual 72 % (45-73)
[2024-01-10 04:32] LABS: Platelet Estimate NORMAL (NORMAL); RBC Morphology NOTED
[2024-01-10 04:33] LABS: Platelet Morphology Comment NORMAL; Polychromasia 2+ (3-5) /OIF; Schistocytes 1+ (0-2) /OIF; Tear Drop Cells 1+ (0-2) /OIF; Toxic Vacuolation PRESENT
[2024-01-10] MEDS: Albuterol Sulfate 7.5 MG, Albuterol/Iprat 2.5/0.5MG 3 ML 3 ML INHALE (04:35)
--- NOTE | 2024-01-10 04:38 | PC.NURSE ---
Assumed care of pt. Pt moved into room on stretcher, IV established, labs drawn.
[2024-01-10 04:40] LABS: VBG HCO3 32 mmol/L (22-26); VBG pCO2 53 mmHg; VBG pH 7.38 (7.32-7.43); VBG pO2 46 mmHg
[2024-01-10 04:40] LABS: Venous Blood Gas Refer to POC result
[2024-01-10 04:46] LABS: Ammonia 27 umol/L (13-55)
[2024-01-10 04:47] LABS: Erythrocyte Sedimentation Rate 18 MM/HR (0-20)
[2024-01-10 04:49] LABS: Influenza A PCR NEGATIVE (Negative); Influenza B PCR NEGATIVE (Negative); Resp Syncy Virus RNA Qual PCR NEGATIVE (Negative); SARS COV2 PCR INHOUSE NEGATIVE (Negative)
[2024-01-10] MEDS: methylPREDNISolone Sod Succ 125 MG/2 ML VIAL 60 MG IVPUSH (04:52)
[2024-01-10] MEDS: cefTRIAXone sodium 1 GM in 0.9 % Sodium Chloride 50 ML IV (04:52)
--- NOTE | 2024-01-10 04:53 | PC.NURSE ---
Delay in abx admin d/t delay in IV access
[2024-01-10 04:56] LABS: B Type Natriuretic Peptide 386 pg/mL (<100)
[2024-01-10 04:58] LABS: Alanine Aminotransferase 199 U/L (0-31); Albumin Level 3.3 g/dL (3.5-5.0); Alkaline Phosphatase 128 U/L (39-117); Anion Gap 17 (12-20); Aspartate Amino Transferase 54 U/L (5-31); Bilirubin Direct 0.4 mg/dL (0.0-0.5); Bilirubin Total 0.6 mg/dL (0.0-1.0); Blood Urea Nitrogen 22 mg/dL (9-16); C Reactive Protein 6.37 mg/dL (< or = 0.50); Carbon Dioxide 27 mmol/L (22-29); Chloride 100 mmol/L (96-108); Creatinine Clr Calc Pharmacy 85.2; Estimated Glomerular Filt Rate > 60; Ethanol < 10 mg/dL; Glucose Random 83 mg/dL (60-115); Lipase 20 U/L (8-78); Magnesium 1.8 mg/dL (1.6-2.6); Potassium 3.6 mmol/L (3.3-5.1); Sodium 140 mmol/L (135-145); Total Protein 6.5 g/dL (6.5-8.0)
[2024-01-10 05:00] LABS: Troponin-I High Sensitivity 7.1 ng/L (<3.5-17.0)
[2024-01-10 05:28] LABS: Procalcitonin 0.04 ng/mL
[2024-01-10 06:55] LABS: Amphetamine Screen Urine Not Detected (Not Detect); Barbiturates, Urine Not Detected (Not Detect); Benzodiazepines Screen Urine Not Detected (Not Detect); Buprenorphine Scr Positive (Not Detect); Cannabinoid Screen Urine Not Detected (Not Detect); Cocaine Screen Urine Not Detected (Not Detect); Fentanyl, urine Not Detected (Not Detect); Methadone Screen, Urine Not Detected (Not Detect); Opiate Screen Urine Not Detected (Not Detect); Oxycodone Screen Urine Not Detected (Not Detect); Phencyclidine Screen Urine POSITIVE (Not Detect)
[2024-01-10 07:03] LABS: Appearance Urine Clear; Color Urine Dark Yellow; Glucose Urine UA Negative (Negative); Leukocyte Esterase Urine Trace (Negative); Nitrite Urine Negative (Negative); PH 5.5 (5.0-9.0); Specific Gravity - Urine >= 1.030 (1.005-1.025); UMIC TRIGGER UACC YES; Urine Blood Negative (Negative); Urine Ketones Trace mg/dL (Negative); Urine Protein 30 (1+) mg/dL (Neg-Trace)
[2024-01-10 07:14] LABS: Bacteria Urine None Seen (None Seen); RBC Urine 0-2 /HPF (0-2); WBC Urine 0-5 /HPF (0-5)
[2024-01-10] MEDS: Azithromycin 500 MG in 0.9 % Sodium Chloride 250 ML 125 MG IV (08:08)
--- NOTE | 2024-01-10 09:31 | PM.IMHP ---
History of Present Illness Date of Service: 01/10/24 Chief Complaint: Confusion, sob, \58 yo female with PMH of chronic pain on gabapentin, HLD, depression, chronic respiratory failure per pulm notes COPD on PRN 2L NC O2 at home. Seen in ED on 12/12 after a fall and had R femoral head subluxation and joint effusion offered rehab but declined and went home. On 12/29, she was seen by Dr. Sweeney who reviewed CT scan and recommended MRI of lumbar spine and hip arthroplasty in the future once her risk factors were better assessed. She comes in today with intractable pain, and seemingly confused, unsure where she's at and other convulated stories. She reports swelling and redness in the legs, increasing sob and wheezing. Head CT show no acute finding, CXR no PNA. She's given Abx for Ceftriaxone Review of Systems Review of Systems: Gen: no fever Resp: no sob, no cough, wheezing CV: no chest, no [place], no leg edema GI: No n/v, no abd pain Neuro: No confusion Yes all other systems are reviewed and are negative FORMERLY [facility], [facility]–1983 Medical History Lumbar spondylosis Trochanteric bursitis of right hip COPD (chronic obstructive pulmonary disease) Exercise hypoxemia Nicotine dependence, cigarettes, uncomplicated Dyslipidemia Obesity History of sepsis Urinary frequency Anxiety associated with depression Bilateral hip pain Lower back pain Somatic dysfunction of left sacroiliac joint Family History Father Substance use disorder Mother Substance use disorder Mental health disorder Maternal Grandmother Substance use disorder Mental health disorder Surgical History History of section Social History Household Members: Spouse Housing: House Do you presently have visiting nurse or other home services: No Alcohol intake: current Alcohol intake frequency: holidays/special occasions only Patient Tobacco Use Status: Current everyday Tobacco user Tobacco use type: Cigarette Cigarette Packs Per Day: 1 Cigarettes Per Day: 20.0 Years Smoked: 30 Smoked in Last 30 Days: Yes e-Cigarette/Vaping Use: Never Used Patient Interested in Nicotine Replacement: No Second Hand Smoke Exposure: No Use of substances other than those prescribed or required for medical reasons: No Substance Use Type: Heroin Currently Displaying Signs/Symptoms of Drug Intoxication Withdrawal: No Have you been hit, kicked, punched, or otherwise hurt by someone within the past year? If so, by whom?: No Do you feel safe in your current relationship?: Yes Is there a partner from a previous relationship who is making you feel unsafe now?: No Are you made to feel afraid or neglected: No Advance Directives: No Advance Directives Information Provided: Yes Do you have a plan to hurt others: No Plan Recently lost weight without trying: Unsure Nutrition Risks: No Nutritional Risk Patient : No service: No Current occupational status: employed Current occupation: [employer] Cognitive needs: No Hearing needs: No Vision needs: No Meds Allergies Allergy/AdvReac Type Severity Reaction Status Date / Time omeprazole [From PRILOSEC] Allergy Severe ANAPHYLAXIS Verified 01/10/24 04:05 lansoprazole [Prevacid] Allergy Unknown anaphylaxis Verified 01/10/24 04:05 cyclobenzaprine Allergy Rash Verified 01/10/24 04:05 [From Flexeril] Physical Exam Vital Signs and Narrative: Vital Signs: Last Vital Signs Temp 98.7 F 01/10/24 08:46 Pulse 78 01/10/24 08:46 Resp 13 01/10/24 08:46 BP 100/62 01/10/24 08:46 Pulse Ox 95 01/10/24 08:46 O2 Del Method Nasal Cannula 01/10/24 08:46 O2 Flow Rate 4 01/10/24 08:46 Oxygen Flow Rate 2 01/10/24 03:45 BMI result Body Mass Index 43.6 General: AO X 3, no acute distress Resp: CTA bilateral CVS: S1,S2,RRR GI: +BS, NT, no distention Skin: No rash Neuro: motor grossly intact Psych: appropriate affect Const: Other: Constitutional: Alert, in no distress, overweight. Mental Status: Oriented to person, place and time. Eyes: Pupils are equal, round and reactive to light. Ear, Nose and Throat: Oropharynx clear, mucous membranes moist. Ears and nose without Respiratory: Clear to auscultation. No wheezing, rales or rhonchi. Cardiovascular: S1 S2 regular. No murmurs, rubs or gallops. Gastrointestinal: Abdomen soft, non-tender, non-distended. Normal bowel sounds.? Neurologic: Cranial nerves II-XII grossly intact. No focal neurological deficits. Moves all extremities spontaneously.? Skin: No rashes or lesions.? Musculoskeletal: No cyanosis or clubbing. Psychiatric: Normal mood and affect? Results Labs 01/11/24 05:05 01/10/24 04:29 Labs: Laboratory Results - last 24 hr 01/10/24 01/10/24 01/10/24 04:06 04:07 04:29 MCV 89.1 MCH 28.9 MCHC 32.5 RDW 15.6 Plt Count 273 MPV 10.1 Immature Gran % (Auto) Cancelled Neut % (Auto) Cancelled Lymph % (Auto) Cancelled [place] % (Auto) Cancelled Eos % (Auto) Cancelled Baso % (Auto) Cancelled Lymph # (Auto) Cancelled [place] # (Auto) Cancelled Eos # (Auto) Cancelled Baso # (Auto) Cancelled Abs Immat Gran (auto) Cancelled Absolute Neuts (auto) Cancelled Absolute Nucleated RBC 0.060 H Nucleated RBC % (auto) 0.5 H Neutrophils % (Manual) 72 Band Neutrophils % 7 H Lymphocytes % (Manual) 7 L Monocytes % (Manual) 7 Eosinophils % (Manual) 5 H Metamyelocytes % 2 Abs Neuts (Manual) 9.3 H Lymphocytes # (Manual) 0.8 L Monocytes # (Manual) 0.8 Eosinophils # (Manual) 0.6 H Metamyelocytes # 0.2 Toxic Vacuolation PRESENT Platelet Estimate NORMAL Plt Morphology Comment NORMAL RBC Morphology NOTED Polychromasia 2+ (3-5) Tear Drop Cells 1+ (0-2) Schistocytes 1+ (0-2) ESR 18 VBG pH VBG pCO2 VBG pO2 VBG HCO3 VBG O2 Saturation VBG Base Excess Anion Gap 17 Estim Creat Clear Calc 85.2 Estimated GFR > 60 Random Glucose 83 Lactic Acid 1.3 Calcium 9.0 D Magnesium 1.8 Total Bilirubin 0.6 Direct Bilirubin 0.4 AST 54 H ALT 199 H Alkaline Phosphatase 128 H Ammonia 27 Troponin I High Sens 7.1 D C-Reactive Protein 6.37 H B-Natriuretic Peptide 386 H Total Protein 6.5 Albumin 3.3 L Lipase 20 Procalcitonin 0.04 Urine Color Urine Appearance Urine pH Ur Specific [place] Urine Protein Urine Glucose (UA) Urine Ketones Urine Blood Urine Nitrite Ur Leukocyte Esterase Urine RBC Urine WBC Ur Squamous Epith Cells Urine Bacteria Hyaline Casts Urine Opiates Screen Ur Buprenorphine Scrn Ur Oxycodone Screen Urine Methadone Screen Urine Fentanyl Screen Ur Barbiturates Screen Ur Phencyclidine Scrn Ur Amphetamines Screen U Benzodiazepines Scrn Urine Cocaine Screen U Marijuana (THC) Screen Ethyl Alcohol < 10 Influenza Type A (PCR) NEGATIVE Influenza Type B (PCR) NEGATIVE RSV RNA Qual (PCR) NEGATIVE SARS-CoV-2 RNA (RT-PCR) NEGATIVE 01/10/24 01/10/24 04:35 06:38 MCV MCH MCHC RDW Plt Count MPV Immature Gran % (Auto) Neut % (Auto) Lymph % (Auto) [place] % (Auto) Eos % (Auto) Baso % (Auto) Lymph # (Auto) [place] # (Auto) Eos # (Auto) Baso # (Auto) Abs Immat Gran (auto) Absolute Neuts (auto) Absolute Nucleated RBC Nucleated RBC % (auto) Neutrophils % (Manual) Band Neutrophils % Lymphocytes % (Manual) Monocytes % (Manual) Eosinophils % (Manual) Metamyelocytes % Abs Neuts (Manual) Lymphocytes # (Manual) Monocytes # (Manual) Eosinophils # (Manual) Metamyelocytes # Toxic Vacuolation Platelet Estimate Plt Morphology Comment RBC Morphology Polychromasia Tear Drop Cells Schistocytes ESR VBG pH 7.38 VBG pCO2 53 VBG pO2 46 VBG HCO3 32 H VBG O2 Saturation 70.0 VBG Base Excess 6.0 Anion Gap Estim Creat Clear Calc Estimated GFR Random Glucose Lactic Acid Calcium Magnesium Total Bilirubin Direct Bilirubin AST ALT Alkaline Phosphatase Ammonia Troponin I High Sens C-Reactive Protein B-Natriuretic Peptide Total Protein Albumin Lipase Procalcitonin Urine Color Dark Yellow Urine Appearance Clear Urine pH 5.5 Ur Specific [place] >= 1.030 H Urine Protein 30 (1+) H Urine Glucose (UA) Negative Urine Ketones Trace Urine Blood Negative Urine Nitrite Negative Ur Leukocyte Esterase Trace H Urine RBC 0-2 Urine WBC 0-5 Ur Squamous Epith Cells 6-10 Urine Bacteria None Seen Hyaline Casts 11-20 Urine Opiates Screen Not Detected Ur Buprenorphine Scrn Positive H Ur Oxycodone Screen Not Detected Urine Methadone Screen Not Detected Urine Fentanyl Screen Not Detected Ur Barbiturates Screen Not Detected Ur Phencyclidine Scrn POSITIVE H Ur Amphetamines Screen Not Detected U Benzodiazepines Scrn Not Detected Urine Cocaine Screen Not Detected U Marijuana (THC) Screen Not Detected Ethyl Alcohol Influenza Type A (PCR) Influenza Type B (PCR) RSV RNA Qual (PCR) SARS-CoV-2 RNA (RT-PCR) Imaging Radiologist's Impressions: Impressions Chest X-Ray 01/10/24 03:40 IMPRESSION: Low lung volumes. Minimal subsegmental atelectasis or scarring at the right lung base. No other significant abnormality seen. Electronically signed by: Aelx Olmstead MD 01/10/2024 05:18 AM EDT RP Head CT 01/10/24 05:25 IMPRESSION: No acute intracranial pathology. Electronically signed by: George Cazares MD 01/10/2024 08:27 AM EDT RP Venous Duplex 01/10/24 05:50 IMPRESSION: 1. No evidence of deep venous thrombosis involving the bilateral lower extremities. 2. There is a 4.1 x 0.4 x 3.2 cm right popliteal fossa cyst. There is edematous changes in the left popliteal fossa. Electronically signed by: Alex Olmstead MD 01/10/2024 06:29 AM EDT RP Assessment and Plan (1) Encephalopathy acute: Status: Acute (2) Substance abuse: Status: Acute (3) Acute exacerbation of chronic obstructive pulmonary disease: Status: Acute (4) Trochanteric bursitis of right hip: Status: Acute Plan 58 yo female with PMH of chronic pain on gabapentin, HLD, depression, chronic respiratory failure per pulm notes COPD on PRN 2L NC O2 at home here with acute exacerbation of copd, also with celulitis of the legs COPD exacerbation -IV steroid -bronchodilators, scheduled and PRN -O2 -Doxycyline for bronchitis Delirium Back pain on top of chronic pain -Oxycodone PRN for Cellulitis of the leg -Doxycylcine Elevated LTS -likely from fatty liver disease Right pain, OA -oxycodone for pain, ortho consult Morbid obesity weight loss advised DVT prophylaxis--Lovenox Full code admission for 2 midnights for management of copd with iv steroid Quality Stroke Does the patient have a stroke diagnosis?: No VTE Prior VTE?: No VTE Risk Level:: Medical - moderate - high VTE Device Contraindication: Treatment Not Indicated VTE Drug Contraindication: N/A - Med Ordered
--- NOTE | 2024-01-10 09:45 | MHC.EDTECH ---
pt placed on purewick
--- NOTE | 2024-01-10 09:47 | PHA.MEDREC ---
Addendum entered by Adolph Arango [facility] 01/10/24 10:22: Called [facility] ([phone]), to confirm Suboxone dose. They could not confirm, they have never serviced this patient in any of their locations. Addendum entered by Adolph Arango [facility] 01/10/24 10:09: Reviewed by [facility]. Let provider know we did not include Suboxone on his home medication, and found zero claims in PDMP, and could not confirm when calling pharmacy Original Note: Pharmacy Consult ? Medication Reconciliation Pharmacy has completed the medication reconciliation. Patient was a little off and a little confused during the run down but what patient confirmed for the most part matched what we have in claims for medications. Patient was not sure about her dosing on the Buprenorphine-Naloxone Sublingual Films and states she thinks its a blue and white box and she states I maybe get them filled at a clinic in [place] but was not sure the name of the clinic. I called [facility] on [address] [facility] in [place] and they have no claims for films there and pharmacist looked on PDMP and was not able to find any Buprenorphine-Naloxone Sublingual Films in her PDMP fill history. I also inquired about Celecoxib 200mg and the patient states That might be a new medication my Dr just prescribed to me , there are no Pharmacy Claims and [facility] stated they had a script filled 12/21/23 but in their claims the patient never picked up and they returned it to stock 01/04/24. Patient states she is done with her prednisone regimens. Towards the end of our conversation the patient became very disorientated and confused and was not sure the day, what she was doing here and was not able confirm anything else with me and stated There was no one I could call to confirm anything else I kept out the Buprenorphine-Naloxone Sublingual Films and Celecoxib 200mg tab from the list since no recent claims and got confirmation on [facility] returning Celecoxib.
[2024-01-10] MEDS: Nicotine 14 MG PATCH.TD24 TRANSDERMA (10:34)
[2024-01-10] MEDS: Enoxaparin Sodium 40 MG/0.4 ML SYRINGE SUBCUT (10:35)
[2024-01-10] MEDS: Doxycycline Hyclate 100 MG in 0.9 % Sodium Chloride 250 ML 166.67 MG IV ×2 (10:37→21:32)
[2024-01-10] MEDS: Acetaminophen 325 MG TABLET 650 MG PO (10:43)
--- NOTE | 2024-01-10 10:43 | PC.NURSE ---
Patient requesting prn pain medication for 8/10 back pain, prn order for tylenol. Patient stating she will take tylenol but would like something stronger for pain, provider aware
[2024-01-10] MEDS: Albuterol Sulfate (0.083%) 2.5 MG/3 ML VIAL.NEB INHALE ×3 (11:10→20:19)
[2024-01-10] MEDS: Gabapentin 600 MG TABLET PO ×2 (15:47→21:30)
[2024-01-10] MEDS: oxyCODONE HCl Immed Release 5 MG TABLET PO (15:47)
[2024-01-10] MEDS: 0.9 % Sodium Chloride Flush 3 ML SYRINGE IVFLUSH ×2 (15:47→23:12)
--- NOTE | 2024-01-10 15:48 | PC.NURSE ---
pt c/o increase in right hip that radiates to entire RLE. requesting medication. unable to administer PRN tylenol d/t previous medication administration admitting provider notified/aware of pt's request. pt medicated per provider order. effectiveness pending. pt receiving breathing treatment via RT at this time. waiting for bed assignment. plan of care ongoing. call croft placed within reach.
--- NOTE | 2024-01-10 16:19 | MHC.CM.PN ---
PT REPORTS SHE LIVES WITH HER AND A FRIEND MOVED IN THAT WAS SUPPOSED TO HELP HER, BUT HE HAS BEEN SLACKING SHE REPORTS SHE WAS INDEPENDENT WITH CARE, BUT EARLIER THIS SUMMER SHE STARTED HAVING SEVERE PAIN ON HER SIDE SHE SAYS SHE IS WAITING FOR AN MRI AND ORTHO APPT PT HOPES THE MRI CAN HAPPEN PRIOR TO DC SHE DECLINES TO COMPLETE A HCP PCP: RE FERRARI DCP: TBD PENDING PT EVAL/RECOVERY PT REPORTS GOAL HOME SHE WILL NEED TRANSPORT ARRANGED
[2024-01-10] MEDS: TiZANidine HCL 4 MG TABLET PO (21:30)
[2024-01-10] MEDS: Venlafaxine HCl ER 150 MG CAP.ER.24H PO (21:30)
[2024-01-10] MEDS: methylPREDNISolone Sod Succ 40 MG/ML VIAL IVPUSH (21:31)
[2024-01-10] MEDS: cloNIDine HCL 0.1 MG TABLET PO (21:31)
[2024-01-11] VITALS (9 sets, daily range): BP systolic 93–132; BP diastolic 54–82; PULSE 78–94; RESP 15–88; TEMP 36.2–36.7; O2SAT 84–99
[2024-01-11] MEDS: oxyCODONE HCl Immed Release 5 MG TABLET PO ×3 (00:19→21:59)
[2024-01-11 05:31] LABS: Basophils Percent Auto 0.1 % (0-2); Hemoglobin 12.5 g/dl (12.0-16.0); Imm Gran Abs Auto 0.29 X10*3/uL (0.00-0.03); Imm Gran Pct Auto 3.7 % (0.0-0.4); Lymphocytes Absolute Auto 0.8 X10*3/uL (1.2-4.9); Lymphocytes Percent Auto 9.8 % (20-40); MANUAL DIFF FLAG NO; Mean Corpuscular HGB Conc 32.1 g/dl (31.0-35.0); Mean Corpuscular Hemoglobin 28.9 pg (27.0-33.0); Mean Corpuscular Volume 90.1 fL (80.0-98.0); Mean Platelet Volume 10.7 fL (9.4-12.3); Monocytes Absolute Auto 0.4 X10*3/uL (0.1-1.2); Neutrophils Absolute Auto 6.3 x10*3/uL (2.0-8.3); Neutrophils Percent Auto 81.4 % (45-73); Platelet Count 252 X10*3/uL (160-400); Red Blood Count 4.33 X10*6/uL (4.20-5.50); Red Cell Distribution Width 15.8 % (11.0-16.0); White Blood Count 7.8 X10*3/uL (4.8-10.8)
[2024-01-11] MEDS: Albuterol Sulfate (0.083%) 2.5 MG/3 ML VIAL.NEB INHALE ×4 (07:56→19:42)
[2024-01-11] MEDS: Venlafaxine HCl ER 150 MG CAP.ER.24H PO ×2 (08:51→21:49)
[2024-01-11] MEDS: cloNIDine HCL 0.1 MG TABLET PO (08:51)
[2024-01-11] MEDS: Gabapentin 600 MG TABLET PO ×3 (08:51→21:49)
[2024-01-11] MEDS: methylPREDNISolone Sod Succ 40 MG/ML VIAL IVPUSH ×2 (08:52→21:49)
[2024-01-11] MEDS: 0.9 % Sodium Chloride Flush 3 ML SYRINGE IVFLUSH ×3 (08:52→21:53)
[2024-01-11] MEDS: Nicotine 14 MG PATCH.TD24 TRANSDERMA (08:52)
[2024-01-11] MEDS: Enoxaparin Sodium 40 MG/0.4 ML SYRINGE SUBCUT (08:52)
--- NOTE | 2024-01-11 09:24 | HO.PM.IMPN ---
Subjective Subjective Date of Service: 01/11/24 Interval History: f/u on encephalopathy, copd exacergbation and cellulitis of the legs she is no longer confused, redness is better in the leg, she has righ hip pain which is old Physical Exam Vital Signs: Vital Signs: Last Vital Signs Temp 98.1 F 01/11/24 07:48 Pulse 85 01/11/24 07:56 Resp 18 01/11/24 07:56 BP 120/66 01/11/24 07:48 Pulse Ox 94 01/11/24 07:48 O2 Del Method Room Air 01/11/24 07:48 O2 Flow Rate 2 01/11/24 03:23 Oxygen Flow Rate 2 01/10/24 03:45 BMI result Body Mass Index 39.7 General: AO X 3, no acute distress Resp: CTA bilateral CVS: S1,S2,RRR GI: +BS, NT, no distention Skin: No rash, rednesss of the legs are better Neuro: motor grossly intact Psych: appropriate affect Objective Data Active Medications Acetaminophen (Acetaminophen 325 Mg Tablet) 650 mg PO Q6H PRN PRN Reason: Pain, Mild (Pain Scale 1-3), fever or headache Last Admin: 01/10/24 10:43 Dose: 650 mg Documented By: LOS Albuterol Sulfate (Albuterol Sulfate (0.083%) 2.5 Mg/3 Ml Vial.Neb) 2.5 mg INHALE RQ4H WHILE AWAKE [facility] Last Admin: 01/11/24 07:56 Dose: 2.5 mg Documented By: KAROLYN Albuterol Sulfate (Albuterol Sulfate (0.083%) 2.5 Mg/3 Ml Vial.Neb) 2.5 mg INHALE Q2H PRN PRN Reason: Shortness of Breath/Wheezing Albuterol/Ipratropium (Albuterol/Iprat 2.5/0.5mg 3 Ml Ampul.Neb) 3 ml INHALE Q4H PRN PRN Reason: wheezing Benzonatate (Benzonatate 100 Mg Capsule) 100 mg PO TID PRN PRN Reason: Cough Calcium Carbonate (Calcium Carbonate 750 Mg Tab.Chew) 750 mg PO Q4H PRN PRN Reason: Heartburn Clonidine HCl (Clonidine Hcl 0.1 Mg Tablet) 0.1 mg PO BID [facility]; Protocol Last Admin: 01/11/24 08:51 Dose: 0.1 mg Documented By: WENDI Enoxaparin Sodium (Enoxaparin Sodium 40 Mg/0.4 Ml Syringe) 40 mg SUBCUT Q24H [facility] Last Admin: 01/11/24 08:52 Dose: 40 mg Documented By: WENDI Gabapentin (Gabapentin 600 Mg Tablet) 600 mg PO TID [facility] Last Admin: 01/11/24 08:51 Dose: 600 mg Documented By: WENDI Doxycycline Hyclate 100 mg/ (Sodium Chloride) 250 mls @ 166.67 mls/hr IV Q12H [facility] Last Infusion: 01/10/24 23:08 Dose: Infused Documented By: NIKKO Magnesium Hydroxide (Milk Of Magnesia 30 Ml Oral.Susp) 30 ml PO DAILY PRN PRN Reason: Constipation Melatonin (Melatonin 3 Mg Tablet) 6 mg PO BEDTIME PRN PRN Reason: Insomnia Methylprednisolone Sodium Succinate (Methylprednisolone Sod Succ 40 Mg/Ml Vial) 40 mg IVPUSH BID [facility] Last Admin: 01/11/24 08:52 Dose: 40 mg Documented By: WENDI Nicotine (Nicotine 14 Mg Patch.Td24) 14 mg TRANSDERMA DAILY [facility] Last Admin: 01/11/24 08:52 Dose: 14 mg Documented By: WENDI Nicotine Polacrilex (Nicotine Polacrilex 2 Mg Gum) 2 mg BUCCAL Q2H PRN PRN Reason: Nicotine Cravings Non-Formulary Medication (Tjnqxwzeyk-Mrmncdcn-Hmcyuwxqdc [Breztri Aerosphere]) 2 inhalation INHALE BID [facility] Non-Formulary Medication (Nabumetone) 750 mg PO BID PRN PRN Reason: pain Oxycodone HCl (Oxycodone Hcl Immed Release 5 Mg Tablet) 5 mg PO Q6H PRN PRN Reason: Pain, Severe (Pain Scale 7-10) Last Admin: 01/11/24 08:51 Dose: 5 mg Documented By: WENDI Polyethylene Glycol (Polyethylene Glycol 3350 17 Gm Powd.Pack) 17 gm PO DAILY PRN PRN Reason: Constipation Sodium Chloride (0.9 % Sodium Chloride Flush 3 Ml Syringe) 3 ml IVFLUSH QSHIFT [facility] Last Admin: 01/11/24 08:52 Dose: 3 ml Documented By: WENDI Tizanidine HCl (Tizanidine Hcl 4 Mg Tablet) 4 mg PO Q8H PRN PRN Reason: muscle spasticity Last Admin: 01/10/24 21:30 Dose: 4 mg Documented By: NIKKO Venlafaxine HCl (Venlafaxine Hcl Er 150 Mg Cap.Er.24h) 150 mg PO BID PER Last Admin: 01/11/24 08:51 Dose: 150 mg Documented By: WENDI Labs 01/11/24 05:05 01/10/24 04:29 Labs: Laboratory Results - last 24 hr 01/11/24 05:05 MCV 90.1 MCH 28.9 MCHC 32.1 RDW 15.8 Plt Count 252 MPV 10.7 Immature Gran % (Auto) 3.7 H Neut % (Auto) 81.4 H Lymph % (Auto) 9.8 L [place] % (Auto) 5.0 Eos % (Auto) 0.0 Baso % (Auto) 0.1 Lymph # (Auto) 0.8 L [place] # (Auto) 0.4 Eos # (Auto) 0.0 Baso # (Auto) 0.0 Abs Immat Gran (auto) 0.29 H Absolute Neuts (auto) 6.3 Absolute Nucleated RBC 0.000 Nucleated RBC % (auto) 0.0 Microbiology Microbiology Results: Microbiology 01/10/24 04:06 Blood Culture - Preliminary Blood - Venous No growth after 24 hours. 01/10/24 03:52 Blood Culture - Preliminary Blood - Venous No growth after 24 hours. Assessment and Plan (1) Acute exacerbation of chronic obstructive pulmonary disease: Status: Acute (2) Substance abuse: Status: Acute (3) Encephalopathy acute: Status: Acute Plan 58 yo female with PMH of chronic pain on gabapentin, HLD, depression, chronic respiratory failure per pulm notes COPD on PRN 2L NC O2 at home here with acute exacerbation of copd, also with celulitis of the legs COPD exacerbation, improved -recude IV steroid to 20 bid and chane to Prednisone tomorrow -bronchodilators, scheduled and PRN -O2, wean off -Doxycyline for bronchitis Delirium/encephalopathy--likely meds related -resolved. Back pain on top of chronic pain, Right pain, OA -oxycodone for pain, ortho consult -Oxycodone PRN for Cellulitis of the leg -Doxycylcine Elevated LTS -likely from fatty liver disease, monitor Morbid obesity weight loss advised DVT prophylaxis--Lovenox Full code admission for 2 midnights for management of copd with iv steroid Quality Stroke Does the patient have a stroke diagnosis?: No VTE Prior VTE?: No VTE Risk Level:: Medical - moderate - high VTE Device Contraindication: Treatment Not Indicated VTE Drug Contraindication: N/A - Med Ordered
[2024-01-11] MEDS: Doxycycline Hyclate 100 MG in 0.9 % Sodium Chloride 250 ML 166.67 MG IV ×2 (09:26→21:56)
--- NOTE | 2024-01-11 11:46 | HO.WOUND ---
Wound Consult: Initial 58yr old? admitted to [facility] on 01/10/24 - See progress notes and H&P for detailed history.? Wound consult placed for Bilateral Lower Leg Rash.? Patient agreeable to assessment and photo documentation.? Patient reports the rash / redness was worse on admission. She reports no pain, no itching and no drainage from the legs, +pp bilaterally, warm to touch - denies neuropathy, heels assessed as well well posterior legs - no open tissue injury noted. No topical interventions needed at this time. Will D/C Wound care order at this time.
--- NOTE | 2024-01-11 13:22 | P.CONOP_ITS ---
History of Present Illness HPI Consult date: 01/11/24 Chief complaint: Delirium, copd exacerbation Narrative: 58 yo female with multiple comorbidities admitted to hospitalist service c/o right hip pain. She was seen in our office by dr piña on 12/30/23 who discussed MAMADOU with her but she was to have further workup for her lumbar radicular symptoms. She has not done this yet. She states she has been at home unable to perform ADLs due to the pain. Review of Systems 2 Review of Systems: Yes all other systems are reviewed and are negative [facility] Past Medical History Medical History Lumbar spondylosis Trochanteric bursitis of right hip COPD (chronic obstructive pulmonary disease) Exercise hypoxemia Nicotine dependence, cigarettes, uncomplicated Dyslipidemia Obesity History of sepsis Urinary frequency Anxiety associated with depression Bilateral hip pain Lower back pain Somatic dysfunction of left sacroiliac joint Family History Family History Father Substance use disorder Mother Substance use disorder Mental health disorder Maternal Grandmother Substance use disorder Mental health disorder Surgical History Surgical History History of section Social History Social History Household Members: Spouse Housing: House Do you presently have visiting nurse or other home services: No Alcohol intake: current Alcohol intake frequency: holidays/special occasions only Patient Tobacco Use Status: Current everyday Tobacco user Tobacco use type: Cigarette Cigarette Packs Per Day: 1 Cigarettes Per Day: 20.0 Years Smoked: 30 Smoked in Last 30 Days: Yes e-Cigarette/Vaping Use: Never Used Patient Interested in Nicotine Replacement: No Second Hand Smoke Exposure: No Use of substances other than those prescribed or required for medical reasons: No Substance Use Type: Heroin Currently Displaying Signs/Symptoms of Drug Intoxication Withdrawal: No Have you been hit, kicked, punched, or otherwise hurt by someone within the past year? If so, by whom?: No Do you feel safe in your current relationship?: Yes Is there a partner from a previous relationship who is making you feel unsafe now?: No Are you made to feel afraid or neglected: No Advance Directives: No Advance Directives Information Provided: Yes Do you have a plan to hurt others: No Plan Recently lost weight without trying: Unsure Nutrition Risks: No Nutritional Risk Patient : No service: No Current occupational status: employed Current occupation: [employer] Cognitive needs: No Hearing needs: No Vision needs: No Meds Allergies Allergy/AdvReac Type Severity Reaction Status Date / Time omeprazole [From PRILOSEC] Allergy Severe ANAPHYLAXIS Verified 01/10/24 04:05 lansoprazole [Prevacid] Allergy Unknown anaphylaxis Verified 01/10/24 04:05 cyclobenzaprine Allergy Rash Verified 01/10/24 04:05 [From Flexeril] Active Medications: Current Medications Acetaminophen (Acetaminophen 325 Mg Tablet) 650 mg PO Q6H PRN PRN Reason: Pain, Mild (Pain Scale 1-3), fever or headache Last Admin: 01/10/24 10:43 Dose: 650 mg Albuterol Sulfate (Albuterol Sulfate (0.083%) 2.5 Mg/3 Ml Vial.Neb) 2.5 mg INHALE RQ4H WHILE AWAKE [facility] Last Admin: 01/11/24 11:35 Dose: 2.5 mg Albuterol Sulfate (Albuterol Sulfate (0.083%) 2.5 Mg/3 Ml Vial.Neb) 2.5 mg INHALE Q2H PRN PRN Reason: Shortness of Breath/Wheezing Albuterol/Ipratropium (Albuterol/Iprat 2.5/0.5mg 3 Ml Ampul.Neb) 3 ml INHALE Q4H PRN PRN Reason: wheezing Benzonatate (Benzonatate 100 Mg Capsule) 100 mg PO TID PRN PRN Reason: Cough Calcium Carbonate (Calcium Carbonate 750 Mg Tab.Chew) 750 mg PO Q4H PRN PRN Reason: Heartburn Clonidine HCl (Clonidine Hcl 0.1 Mg Tablet) 0.1 mg PO BID [facility]; Protocol Last Admin: 01/11/24 08:51 Dose: 0.1 mg Enoxaparin Sodium (Enoxaparin Sodium 40 Mg/0.4 Ml Syringe) 40 mg SUBCUT Q24H [facility] Last Admin: 01/11/24 08:52 Dose: 40 mg Gabapentin (Gabapentin 600 Mg Tablet) 600 mg PO TID [facility] Last Admin: 01/11/24 08:51 Dose: 600 mg Doxycycline Hyclate 100 mg/ (Sodium Chloride) 250 mls @ 166.67 mls/hr IV Q12H [facility] Last Infusion: 01/11/24 11:33 Dose: Infused Magnesium Hydroxide (Milk Of Magnesia 30 Ml Oral.Susp) 30 ml PO DAILY PRN PRN Reason: Constipation Melatonin (Melatonin 3 Mg Tablet) 6 mg PO BEDTIME PRN PRN Reason: Insomnia Methylprednisolone Sodium Succinate (Methylprednisolone Sod Succ 40 Mg/Ml Vial) 40 mg IVPUSH BID [facility] Last Admin: 01/11/24 08:52 Dose: 40 mg Nicotine (Nicotine 14 Mg Patch.Td24) 14 mg TRANSDERMA DAILY [facility] Last Admin: 01/11/24 08:52 Dose: 14 mg Nicotine Polacrilex (Nicotine Polacrilex 2 Mg Gum) 2 mg BUCCAL Q2H PRN PRN Reason: Nicotine Cravings Non-Formulary Medication (Cptsfgdlir-Uezurpae-Rfnzdsktpi [Breztri Aerosphere]) 2 inhalation INHALE BID [facility] Non-Formulary Medication (Nabumetone) 750 mg PO BID PRN PRN Reason: pain Oxycodone HCl (Oxycodone Hcl Immed Release 5 Mg Tablet) 5 mg PO Q6H PRN PRN Reason: Pain, Severe (Pain Scale 7-10) Last Admin: 01/11/24 08:51 Dose: 5 mg Polyethylene Glycol (Polyethylene Glycol 3350 17 Gm Powd.Pack) 17 gm PO DAILY PRN PRN Reason: Constipation Sodium Chloride (0.9 % Sodium Chloride Flush 3 Ml Syringe) 3 ml IVFLUSH QSHIFT [facility] Last Admin: 01/11/24 08:52 Dose: 3 ml Tizanidine HCl (Tizanidine Hcl 4 Mg Tablet) 4 mg PO Q8H PRN PRN Reason: muscle spasticity Last Admin: 01/10/24 21:30 Dose: 4 mg Venlafaxine HCl (Venlafaxine Hcl Er 150 Mg Cap.Er.24h) 150 mg PO BID [facility] Last Admin: 01/11/24 08:51 Dose: 150 mg Physical Exam 2 Vital Signs: Vital Signs: Last Vital Signs Temp 98.1 F 01/11/24 07:48 Pulse 78 01/11/24 11:36 Resp 15 01/11/24 11:36 BP 120/66 01/11/24 07:48 Pulse Ox 94 01/11/24 07:48 O2 Del Method Room Air 01/11/24 07:48 O2 Flow Rate 2 01/11/24 03:23 Oxygen Flow Rate 2 01/10/24 03:45 BMI result Body Mass Index 39.7 Const: General: cooperative, healthy appearing, comfortable and no acute distress Extrem: Other: Right hip pain with ROM NVI Results Labs 01/11/24 05:05 01/10/24 04:29 Labs: Abnormal lab results 01/11/24 Range/Units 05:05 Immature Gran % (Auto) 3.7 H (0.0-0.4) % Neut % (Auto) 81.4 H (45-73) % Lymph % (Auto) 9.8 L (20-40) % Lymph # (Auto) 0.8 L (1.2-4.9) X10*3/uL Abs Immat Gran (auto) 0.29 H (0.00-0.03) X10*3/uL H & H 01/10/24 01/11/24 Range/Units 04:06 05:05 Hgb 14.8 12.5 (12.0-16.0) g/dl Hct 45.6 39.0 (37.0-47.0) % All other labs normal. Assessment and Plan (1) Degenerative arthritis of hip: Qualifiers: Osteoarthritis type: primary Laterality: right Qualified Code(s): M 16.11 - Unilateral primary osteoarthritis, right hip Status: Acute Plan Pain mgmnt per medicine PT/OT for gait training / ADLS Discussed f/u with our office out patient to f/u on her LB workup No other treatment at this time Procedures Date of Service Date of Service: 01/11/24
[2024-01-11] MEDS: Acetaminophen 325 MG TABLET 650 MG PO (16:21)
[2024-01-11] MEDS: Benzonatate 100 MG CAPSULE PO (17:09)
[2024-01-12 03:32] VITALS: BP 137/87; PULSE 77; RESP 18; TEMP 36.2; O2SAT 92
[2024-01-12 07:12] VITALS: BP 142/89; PULSE 89; RESP 16; TEMP 36.4; O2SAT 94
[2024-01-12] MEDS: 0.9 % Sodium Chloride Flush 3 ML SYRINGE IVFLUSH (07:20)
[2024-01-12] MEDS: Gabapentin 600 MG TABLET PO (07:21)
[2024-01-12] MEDS: cloNIDine HCL 0.1 MG TABLET PO (07:21)
[2024-01-12] MEDS: Venlafaxine HCl ER 150 MG CAP.ER.24H PO (07:21)
[2024-01-12] MEDS: Nicotine 14 MG PATCH.TD24 TRANSDERMA (07:21)
[2024-01-12] MEDS: methylPREDNISolone Sod Succ 40 MG/ML VIAL IVPUSH (07:21)
[2024-01-12] MEDS: Benzonatate 100 MG CAPSULE PO (07:28)
[2024-01-12] MEDS: oxyCODONE HCl Immed Release 5 MG TABLET PO (07:28)
[2024-01-12 07:57] VITALS: PULSE 89; RESP 16; O2SAT 90
[2024-01-12] MEDS: Albuterol Sulfate (0.083%) 2.5 MG/3 ML VIAL.NEB INHALE ×2 (07:57→11:35)
--- NOTE | 2024-01-12 09:09 | PM.DS ---
DS: Providers Provider Date of Service: 01/12/24 Date of admission: 01/10/24 09:43 Date of discharge: 01/12/24 Primary care physician: Juliet Knowles MD Consults: 01/11/24 07:13 Consult to Orthopedics Routine Consulting Provider: [facility] Reason for consultation: right hip pain, bursitis DS: Diagnosis Discharge Diagnosis (1) Degenerative arthritis of hip: Status: Acute DS: Summary Hospital Course Hospital Course: Admission HPI Chief Complaint: Confusion, sob, 58 yo female with PMH of chronic pain on gabapentin, HLD, depression, chronic respiratory failure per pulm notes COPD on PRN 2L NC O2 at home. Seen in ED on 12/12 after a fall and had R femoral head subluxation and joint effusion offered rehab but declined and went home. On 12/29, she was seen by Dr. Sweeney who reviewed CT scan and recommended MRI of lumbar spine and hip arthroplasty in the future once her risk factors were better assessed. She comes in today with intractable pain, and seemingly confused, unsure where she's at and other convulated stories. She reports swelling and redness in the legs, increasing sob and wheezing. Head CT show no acute finding, CXR no PNA. She's given Abx for Ceftriaxone Hospital course: The patient presented with confusion, shortness of breath, wheezing, and hip pain. She was admitted for management of a COPD exacerbation and leg cellulitis. Her initial confusion, likely due to polypharmacy, resolved quickly. The COPD exacerbation was treated with IV steroids, bronchodilators via nebulizer, and oxygen as needed. She has made a rapid recovery, has been weaned off oxygen, and will transition to oral prednisone for a total of 5 days. Smoking cessation was discussed with the RN, and nicotine patches were offered, but the patient stated she has some at home. For leg cellulitis, she was treated with IV doxycycline, which will be switched to oral doxycycline for a total of 7 days. She also has chronic right hip pain due to trochanteric bursitis and osteoarthritis. Orthopedic surgery evaluated her and will arrange an outpatient MRI, with a possible future hip replacement. At discharge, her condition had improved. Disposition: Home. Physical therapy offered inpatient pulmonary rehab, but she preferred to go home. COPD exacerbation, resolved, treated with IV steroid, broncodilators by Neb and doxycyline for possible bronchitis Delirium/encephalopathy--likely meds related -resolved. Back pain on top of chronic pain, Right pain, OA and chronic right trochanteric bursitis --Outpatient follow up with ortho Cellulitis of the leg -Doxycylcine Elevated LTS -likely from fatty liver disease, monitor Morbid obesity weight loss advised chronic tobacco use disorder -NRT offered, smoking cessatio discussed as well Time Attestation Discharge Coordination Time (in mins): 45 Quality: Safe Use of Opioids Does Pt have an Active Cancer Diagnosis on the Problem List?: No Quality: Stroke Does the patient have a stroke diagnosis?: No Physical Exam Vital Signs: Vital Signs: Last Vital Signs Temp 97.6 F 01/12/24 07:12 Pulse 89 01/12/24 07:57 Resp 16 01/12/24 07:57 BP 142/89 H 01/12/24 07:12 Pulse Ox 94 01/12/24 07:12 O2 Del Method Nasal Cannula 01/12/24 07:12 O2 Flow Rate 2 01/12/24 07:12 Oxygen Flow Rate 2 01/10/24 03:45 BMI result Body Mass Index 39.7 Const: Other: General: AO X 3, no acute distress Resp: CTA bilateral CVS: S1,S2,RRR GI: +BS, NT, no distention Skin: No rash Neuro: motor grossly intact Psych: appropriate affect DS: Data Data Completed and Pending Labs on day of discharge: Preliminary micro results at discharge 01/10/24 04:06 Blood Culture - Preliminary Blood - Venous No growth after 48 hours. 01/10/24 03:52 Blood Culture - Preliminary Blood - Venous No growth after 48 hours. Discharge Plan Discharge Anticipated Discharge Date/Time: 01/12/24 10:47 Patient Disposition: Home Health Service Discharge Diagnosis: COPD exacerbation, cellulitis of the leg, trochanteric bursitis of the right hip Referrals: [facility] [Other] - 1 Week Juliet Knowles MD [Primary Care Provider] - 1 Week Discharge Medications: New doxycycline hyclate 100 mg tablet 100 mg PO BID 5 Days Qty: 10 0RF prednisone 20 mg tablet 40 mg PO DAILY Qty: 6 0RF Continued venlafaxine 150 mg capsule,extended release 24hr 150 mg PO BID Qty: 180 1RF Breztri Aerosphere 160-9-4.8 mcg/actuation HFA aerosol inhaler 2 inh inhalation BID Qty: 32.1 1RF clonidine HCl 0.1 mg tablet 0.1 mg PO BID Qty: 180 1RF gabapentin 600 mg tablet 600 mg PO TID 90 Days Qty: 270 0RF ipratropium-albuterol 0.5 mg-3 mg(2.5 mg base)/3 mL solution for nebulization 3 ml inhalation Q4-6H PRN (Reason: wheezing) Qty: 90 0RF nabumetone 750 mg tablet 750 mg PO BID PRN (Reason: pain) 30 Days Qty: 60 0RF tizanidine 4 mg capsule 4 mg PO Q8H PRN (Reason: muscle spasticity) 4 Days Qty: 12 0RF Rx Instructions: SIDE-EFFECTS IS DROWSINESS. DO NOT TAKE AT WORK OR WHILE DRIVING Discharge Orders: Discharge Order (Routine); Ordered 01/12/24 Ordered By: Luis E Tripp Diet: Advance to usual diet Activity on Discharge: As tolerated Stand Alone Forms: Patient Portal Discharge page Print Language: Frisian Care Plan Goals: Recovery from COPD exacerbation, cellulitis of the leg and ultimately will need hip replacement Health Concerns: COPD exacerbation Cellulitis of the leg Chronic right hip pain Plan of Treatment: Take doxycycline as as directed for cellulitis of the legs Follow-up with Dr. Sweeney for hip pain Assessment: See above Discharge Date/Time: 01/12/24 14:17
[2024-01-12] MEDS: Enoxaparin Sodium 40 MG/0.4 ML SYRINGE SUBCUT (09:48)
[2024-01-12] MEDS: Doxycycline Hyclate 100 MG in 0.9 % Sodium Chloride 250 ML 166.67 MG IV (10:15)
--- NOTE | 2024-01-12 10:51 | W.MHC.F2F ---
Service Date Service Date: 01/12/24 Encounter Date of encounter: 01/12/24 Reasons for Services Signs and symptoms assessed: Hip pain, difficulty walking Reason for jail: teach disease management Reason for physical therapy: therapeutic exercises and gait/transfer training Homebound: Leaving the home is medically contraindicated at this time without the asist of a device and/or another person due th the listed conditions above and below. Reason homebound: unsteady gait / fall risk and pain with ambulation Homebound supporting statement: homebound due to severe arthritis of the hip and bursitis, causig significant pain and trouble walking Certification: Based on the above findings, I certify that this patient is confined to the home and needs intermittent jail care, physical therapy and/or speech therapy, or continues to need occupational therapy. The patient is under my care, and I have initiated the establishment of the plan of care. The patient will be followed by a physician who will periodically review the plan of care. Time Spent With Patient Time: Total time managing care of this patient today ____ minutes.
[2024-01-12 11:35] VITALS: PULSE 87; RESP 16; O2SAT 91
--- NOTE | 2024-01-12 12:01 | MHC.CM.PN ---
pt dcd home with [facility] c van will transport pt around 2
--- NOTE | 2024-01-12 12:08 | PC.NURSE ---
Cinthia will provide [facility] services number before discharge.
[2024-01-12] MEDS: Acetaminophen 325 MG TABLET 650 MG PO (12:12)
== END 2024-01-12 14:17 | disposition home health service (06) | DRG 140 ==
LOC: HO.ED 07:00 → HO.EDOVER 09:48 → HO.S3 17:58
PROVIDERS: Admitting Provider Internal Medicine; Emergency Provider Emergency Medicine; PCP Internal Medicine; Visit Provider Internal Medicine
DX: J44.1 Chronic obstructive pulmonary disease with (acute) exacerbation (principal); F05 Delirium due to known physiological condition; K76.0 Fatty (change of) liver, not elsewhere classified; L03.115 Cellulitis of right lower limb; Z99.81 Dependence on supplemental oxygen; M54.9 Dorsalgia, unspecified; G89.29 Other chronic pain; F17.210 Nicotine dependence, cigarettes, uncomplicated; L03.116 Cellulitis of left lower limb; E66.01 Morbid (severe) obesity due to excess calories; T50.915A Adverse effect of multiple unspecified drugs, medicaments and biological substances, initial encounter; M16.11 Unilateral primary osteoarthritis, right hip; M70.61 Trochanteric bursitis, right hip; Z68.39 Body mass index [BMI] 39.0-39.9, adult; Z71.6 Tobacco abuse counseling; M71.21 Synovial cyst of popliteal space [Baker], right knee; Z71.3 Dietary counseling and surveillance; Z20.822 Contact with and (suspected) exposure to COVID-19; Z79.899 Other long term (current) drug therapy
CPT/HCPCS: 0241U; 36415; 70450; 71045; 80048; 80076; 80307; 81001; 81003; 82140; 82803; 83605; 83690; 83735; 83880; 84145; 84484; 85007; 85025; 85027; 85652; 86140; 87040; 93005; 93970; 94640; 97162; 97166; 99285; J0456; J0696; J1650; J2919

== ENCOUNTER → 2024-01-10 09:43 | Outpatient (BNV) | payer OTHER, SELFPAY | PROVIDERS: Admitting Provider Internal Medicine; Emergency Provider Emergency Medicine; PCP Internal Medicine; Visit Provider Physician Assistant | DX: M16.11 Unilateral primary osteoarthritis, right hip (principal) | CPT/HCPCS: 99221 ==

== ENCOUNTER → 2024-01-10 09:43 | Outpatient (BNV) | payer OTHER, SELFPAY | PROVIDERS: Admitting Provider Internal Medicine; Emergency Provider Emergency Medicine; PCP Internal Medicine; Visit Provider Internal Medicine | DX: M16.11 Unilateral primary osteoarthritis, right hip (principal) | CPT/HCPCS: 99223; 99232; 99239; G0180 ==

== ENCOUNTER 2024-01-17 19:35 | Outpatient (REF) | payer OTHER, SELFPAY ==
--- NOTE | ~2024-01-17 | MR_ITS ---
EXAMINATION: MR LUMBAR SPINE WITHOUT CONTRAST CLINICAL INFORMATION: Spondylosis without myelopathy or radiculopathy, lumbar region COMPARISON: None available. TECHNIQUE: MRI of the lumbar spine was obtained using routine sequences without contrast. FINDINGS: There are 5 nonrib-bearing lumbar-type vertebrae. Moderate dextrocurvature of the lumbar spine. Mild retrolisthesis at L1-2, L2-3, L3-4 and L4-5. Diffusely heterogeneous bone marrow signal is likely degenerative. No acute bone marrow abnormality. The vertebral body heights are preserved. Multilevel disc desiccation with moderate to severe disc height loss at L1-2 and L2-3. Multilevel endplate osteophytosis. The visualized spinal cord is normal in caliber. No abnormal cord signal. The conus medullaris terminates at L1-2. There are disc bulges in the lower thoracic spine without significant spinal canal stenosis. There is moderate to severe right neural foraminal narrowing at T10-11 and T11-12. T12-L1: Diffuse disc bulge and bilateral facet arthrosis. No significant spinal canal or neural foraminal narrowing. L1-2: Diffuse disc bulge, prominent dorsal epidural fat, and bilateral facet arthrosis. Mild spinal canal stenosis. Moderate left neural foraminal narrowing. L2-3: Diffuse disc bulge, prominent dorsal epidural fat, ligamentum flavum hypertrophy, bilateral facet arthrosis. Moderate spinal canal stenosis. Moderate left and mild right neural foraminal narrowing with the disc abutting the exiting L2 nerve roots bilaterally. L3-4: Diffuse disc bulge, ligamentum flavum hypertrophy, prominent dorsal epidural fat, and bilateral facet arthrosis. Moderate to severe spinal canal stenosis. Moderate bilateral neural foraminal narrowing with the disc abutting the exiting L3 nerve roots bilaterally. L4-5: Diffuse disc bulge, prominent dorsal epidural fat, ligamentum flavum hypertrophy, and bilateral facet arthrosis. Mild spinal canal stenosis. Moderate to severe bilateral neural foraminal narrowing with the disc abutting the exiting L4 nerve roots bilaterally. L5-S1: Diffuse disc bulge and bilateral facet arthrosis. No significant spinal canal stenosis. Mild to moderate right neural foraminal narrowing with mass effect on the right exiting L5 nerve roots. The paravertebral soft tissues are unremarkable. MR/MR lumbar spine wo con IMPRESSION: 1. Multilevel lumbar spondylosis as described above with moderate to severe spinal canal stenosis at L3-4 and moderate spinal canal stenosis at L2-3. 2. Multilevel neural foraminal narrowing which is moderate to severe bilaterally at L4-5 and on the right at L5-S1. Electronically signed by: Joby Grijalva MD 02/15/2024 06:08 PM [facility]
== END 2024-01-17 19:36 | disposition home or self-care (01) ==
LOC: HO.MRI 19:35
PROVIDERS: PCP Nurse Practitioner Family; Visit Provider Orthopaedic Surgery
DX: M47.816 Spondylosis without myelopathy or radiculopathy, lumbar region (principal); M16.11 Unilateral primary osteoarthritis, right hip
CPT/HCPCS: 72148

== ENCOUNTER 2024-02-07 08:55 | Outpatient (AMB) | payer OTHER, SELFPAY ==
--- NOTE | 2024-02-07 08:58 | A.OFFVIS_ITS ---
Vital Signs 02/07/24 09:03 Height 5 ft Weight 210 lb BMI 41.0 Intake Visit Reasons: OV- Lumber Spine MRI review Intake Note: Rody is a 58 year old female who presents today for a follow up of her right hip bursitis/Moderate OA. On 11/01/23 was given a bursa injection. Ultimately she may benefit from a Hip arthroplasty, MRI of the lumbar spine was ordered to rule out lower back involvement. MRI has not yet been read by [facility]. Allergies omeprazole [From PRILOSEC] Allergy (Severe, Verified 01/10/24 04:05) ANAPHYLAXIS lansoprazole [Prevacid] Allergy (Unknown, Verified 01/10/24 04:05) anaphylaxis cyclobenzaprine [From Flexeril] Allergy (Verified 01/10/24 04:05) Rash HPI HPI OV- Lumber Spine MRI review: Details: Rody is a 58 year old female who presents today for a follow up of her right hip bursitis/Moderate OA. On 11/01/23 was given a bursa injection. Ultimately she may benefit from a Hip arthroplasty, MRI of the lumbar spine was ordered to rule out lower back involvement. MRI has not yet been read by [facility]. She describes pain with all activity. She describes pain emanating from her lumbar spine and extending down the lateral aspect of her thigh into her calf. She states it is associated with numbness. She states she smoking less than a pack a day but operatively wheeze. She states she is able to walk from her bedroom to the kitchen but otherwise she is in wheelchair. [facility] Medical History Lumbar spondylosis Trochanteric bursitis of right hip COPD (chronic obstructive pulmonary disease) Exercise hypoxemia Nicotine dependence, cigarettes, uncomplicated Dyslipidemia Obesity History of sepsis Urinary frequency Anxiety associated with depression Bilateral hip pain Lower back pain Somatic dysfunction of left sacroiliac joint Surgical History History of section Family History Father Substance use disorder Mother Substance use disorder Mental health disorder Maternal Grandmother Substance use disorder Mental health disorder Social History Household Members: Spouse Housing: House Do you presently have visiting nurse or other home services: No Alcohol intake: current Alcohol intake frequency: holidays/special occasions only Patient Tobacco Use Status: Current everyday Tobacco user Tobacco use type: Cigarette Cigarette Packs Per Day: 1 Cigarettes Per Day: 20.0 Years Smoked: 30 e-Cigarette/Vaping Use: Never Used Second Hand Smoke Exposure: No Substance Use Type: Heroin service: No Current occupational status: employed Current occupation: [employer] Cognitive needs: No Hearing needs: No Vision needs: No Physical Exam Vital Signs: BMI result Body Mass Index 41.0 Extrem Other: In a wheelchair with severe subjective description of pain. Full exam not performed Assessment & Plan Assessment & Plan (1) Lumbar spondylosis: Code(s): M47.816 - Spondylosis without myelopathy or radiculopathy, lumbar region Category: Medical Plan: Rody describes radiating numbness in her back and leg. MRI , while not red, clearly shows scoliotic changes and impingement of the cauda and possibly the cord. I will have this reviewed toña and speak with our spine surgeons. She does have hip arthritis but I think this is secondary. (2) Degenerative arthritis of hip: Code(s): M16.9 - Osteoarthritis of hip, unspecified Category: Medical Qualifiers: Osteoarthritis type: primary Laterality: right Qualified Code(s): M16.11 - Unilateral primary osteoarthritis, right hip Plan: We will continue to assess Coding Level of Care Code Est Pt Level 4 (44456) Diagnoses Lumbar spondylosis M47.816 Primary osteoarthritis of right hip M16.11 Osteoarthritis type: primary Laterality: right
[2024-02-07 09:03] VITALS: BMI 41.0
== END 2024-02-07 09:43 | disposition home or self-care (01) ==
PROVIDERS: PCP Nurse Practitioner Family; Visit Provider Orthopaedic Surgery
DX: M47.816 Spondylosis without myelopathy or radiculopathy, lumbar region (principal); M16.11 Unilateral primary osteoarthritis, right hip
CPT/HCPCS: 99213

== ENCOUNTER → 2024-02-07 08:55 | Outpatient (BNVA) | payer OTHER, SELFPAY | PROVIDERS: PCP Nurse Practitioner Family; Visit Provider Orthopaedic Surgery | DX: M47.816 Spondylosis without myelopathy or radiculopathy, lumbar region (principal); M16.11 Unilateral primary osteoarthritis, right hip | CPT/HCPCS: 99212 ==

== ENCOUNTER 2024-02-15 19:49 | Inpatient (IN) | payer OTHER, SELFPAY ==
--- NOTE | 2024-02-15 | ECG_ITS ---
Test Reason : SHORTNESS OF BREATH Blood Pressure : / mmHG Vent. Rate : 091 BPM Atrial Rate : 091 BPM P-R Int : 148 ms QRS Dur : 088 ms QT Int : 376 ms P-R-T Axes : 058 008 019 degrees QTc Int : 462 ms Sinus rhythm with occasional Premature ventricular complexes Otherwise normal ECG When compared with ECG of 10-JAN-2024 04:38, Premature ventricular complexes are now Present Referred By: Generic ED Physician Electronically Signed By:PAOLA TOWNSEND MD
--- NOTE | ~2024-02-15 | US_ITS ---
EXAMINATION: US TRIPLEX LOWER EXTREMITY, BILATERAL CLINICAL INFORMATION: Bilateral lower extremity edema COMPARISON: 01/10/2024 TECHNIQUE: Color-flow triplex imaging with spectral analysis and compression Doppler were performed on the bilateral lower extremities. FINDINGS: Respiratory variation, normal compression and augmented flow are noted throughout the bilateral lower extremities. The visualized common femoral vein, superficial femoral vein, profunda femoral vein, popliteal vein and midcalf peroneal and posterior tibial venous segments show no evidence of deep venous thrombosis bilaterally. Small Rodriguez's cyst in the right popliteal fossa measuring 1.9 x 0.2 x 2.3 cm. US/US venous duplex LE BI IMPRESSION: No evidence of deep venous thrombosis involving the bilateral lower extremities. Small right Rodriguez's cyst Electronically signed by: Barber Bynum MD 02/16/2024 09:57 AM EST
--- NOTE | ~2024-02-15 | CT_ITS ---
EXAMINATION: CT ANGIOGRAM OF THE CHEST WITH AND WITHOUT CONTRAST (CT PULMONARY ANGIOGRAM FOR PE) CLINICAL INFORMATION: sob COMPARISON: CT lung screening dated 02/12/2023, CT abdomen/pelvis dated 12/13/2023 TECHNIQUE: Prior to contrast administration, noncontrast localization images were obtained. Subsequently, multidetector volumetric imaging was performed from the thoracic inlet to below the diaphragms following the administration of 80 mL Omnipaque 350 intravenous contrast. No contrast reaction reported Sagittal, coronal, and MIP oblique sagittal reformatted images were obtained on the CT workstation, uploaded to PACS, and reviewed. This CT examination was performed using dose optimization techniques as appropriate, variously including the following: *Automated exposure control *Adjustment of mA and/or kV according to patient size (this includes techniques or standardized protocols for targeted exams where dose is matched to indication/reason for exam; i.e. extremities or head) *Use of iterative reconstruction technique Total exam dose-length product 429 mGy-cm FINDINGS: QUALITY OF STUDY/CONTRAST BOLUS: Satisfactory. PULMONARY ARTERIES: No pulmonary emboli. THORACIC AORTA: No aneurysm. LUNG: Moderate centrilobular emphysema. Bibasilar atelectasis. Groundglass opacity in the posterior right upper lobe. Scattered areas of mucus plugging in the bilateral lower lobes, with associated linear atelectasis in the left lower lobe. Stable scattered calcified and noncalcified pulmonary micronodules, the largest of which is a noncalcified 5 mm in the superior segment of the left lower lobe nodule (7:179). PLEURA: No pleural effusion or pneumothorax. MEDIASTINUM: Normal heart size. No pericardial effusion. No hilar or mediastinal lymphadenopathy. No evidence of septal bowing or right heart strain. CORONARY ARTERY CALCIFICATION: None visualized on this study. CHEST WALL/AXILLA: No axillary or internal mammary lymphadenopathy. OSSEOUS STRUCTURES: Degenerative changes of the thoracic spine. No acute or suspicious osseous abnormality. UPPER ABDOMEN: Cholelithiasis without evidence of acute cholecystitis. Ill-defined hypodensity along the falciform ligament likely represents focal fat deposition. Stable 2.1 x 1.6 cm adrenal nodule that previously measured -35 HU on prior noncontrast CT of the abdomen/pelvis dated 12/13/2023. No reflux of contrast into the hepatic veins to suggest elevated right heart pressures. CT/CT angio chest PE protocol IMPRESSION: 1. No pulmonary embolism. 2. Groundglass opacity in the posterior right upper lobe is dependent in appearance and may represent atelectasis but cannot exclude an infectious/inflammatory process. 3. Scattered areas of mucus plugging in the bilateral lower lobes, with associated linear atelectasis in the left lower lobe. 4. Moderate centrilobular emphysema. 5. Stable scattered calcified and noncalcified pulmonary micronodules since prior CT lung screening on 02/12/2023, the largest of which is a noncalcified 5 mm in the superior segment of the left lower lobe. 6. Cholelithiasis without evidence of acute cholecystitis. 7. Stable 2.1 cm adrenal nodule that previously measured -35 HU on prior noncontrast CT of the abdomen/pelvis dated 12/13/2023, and for which no additional imaging is recommended. VTE: negative. Electronically signed by: Albania Stokes MD 02/15/2024 11:00 PM [facility]
--- NOTE | ~2024-02-15 | XR_ITS ---
EXAMINATION: XR CHEST CLINICAL INFORMATION: Cough/dyspnea COMPARISON: 01/10/2024 TECHNIQUE: Frontal view of the chest was obtained. FINDINGS: Mild peribronchial vascular opacities may reflect edema or atypical infection. No effusion or pneumothorax. Unchanged cardiomediastinal silhouette. XR/XR chest 1V IMPRESSION: Mild peribronchial vascular opacities may reflect edema or atypical infection. Electronically signed by: Margareth Meraz MD 02/15/2024 09:08 PM [facility]
[2024-02-15 19:55] VITALS: O2SAT 84; O2SAT 95
[2024-02-15 20:05] VITALS: BP 96/59; PULSE 95; RESP 18; TEMP 36.8; O2SAT 96
[2024-02-15 20:13] VITALS: BMI 30.5
[2024-02-15 20:27] LABS: MANUAL DIFF FLAG NO
[2024-02-15 20:28] LABS: Basophils Percent Auto 0.3 % (0-2); Eosinophils Absolute Auto 0.4 X10*3/uL (0.0-0.4); Eosinophils Percent Auto 4.1 % (0-4); Hematocrit 42.7 % (37.0-47.0); Hemoglobin 13.7 g/dl (12.0-16.0); Imm Gran Abs Auto 0.04 X10*3/uL (0.00-0.03); Imm Gran Pct Auto 0.4 % (0.0-0.4); Lymphocytes Absolute Auto 1.5 X10*3/uL (1.2-4.9); Lymphocytes Percent Auto 15.6 % (20-40); Mean Corpuscular HGB Conc 32.1 g/dl (31.0-35.0); Mean Corpuscular Hemoglobin 28.7 pg (27.0-33.0); Mean Corpuscular Volume 89.3 fL (80.0-98.0); Mean Platelet Volume 9.5 fL (9.4-12.3); Monocytes Absolute Auto 1.2 X10*3/uL (0.1-1.2); Neutrophils Absolute Auto 6.3 x10*3/uL (2.0-8.3); Neutrophils Percent Auto 66.6 % (45-73); Platelet Count 274 X10*3/uL (160-400); Red Blood Count 4.78 X10*6/uL (4.20-5.50); White Blood Count 9.5 X10*3/uL (4.8-10.8)
[2024-02-15 20:43] LABS: Alanine Aminotransferase 12 U/L (0-31); Albumin Level 3.4 g/dL (3.5-5.0); Alkaline Phosphatase 89 U/L (39-117); Anion Gap 12 (12-20); Aspartate Amino Transferase 22 U/L (5-31); Bilirubin Total 0.4 mg/dL (0.0-1.0); Blood Urea Nitrogen 14 mg/dL (9-16); Carbon Dioxide 34 mmol/L (22-29); Chloride 100 mmol/L (96-108); Creatinine Clr Calc Pharmacy 130.3; Estimated Glomerular Filt Rate > 60; Glucose Random 91 mg/dL (60-115); Potassium 3.4 mmol/L (3.3-5.1); Sodium 143 mmol/L (135-145); Total Protein 6.1 g/dL (6.5-8.0)
[2024-02-15 20:48] LABS: B Type Natriuretic Peptide 211 pg/mL (<100)
[2024-02-15 20:50] LABS: Troponin-I High Sensitivity 4.8 ng/L (<3.5-17.0)
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
--- NOTE | 2024-02-15 21:35 | ED_ITS ---
HPI - General Adult General Chief complaint: General Medical Stated complaint: edema in legs, etoh Time Seen by Provider: 02/15/24 21:15 History of Present Illness HPI narrative: Patient is a 58-year-old female with a history of cardiomyopathy. History of COPD. Baseline noncompliant with medications. Presented today with having increasing shortness of breath. Was noted to have decreased oxygenation. Had bilateral lower extremity edema. Patient is from home. Denies any history of blood clots. No history of congestive heart failure. Patient from home. Positive history of COPD baseline not on home O2. Positive coughing upper respiratory symptoms positive generalized malaise. Related Data Previous Rx's ?Medication ?Instructions ?Recorded venlafaxine 150 mg 150 mg PO BID #180 caps 06/12/23 capsule,extended release 24 hr Breztri Aerosphere 160 2 inh inhalation BID #32.1 grams 09/16/23 mcg-9mcg-4.8mcg/actuation HFA aerosol inhaler (azdpizyhdw-[id number]) ipratropium 0.5 mg-albuterol 3 mg 3 ml inhalation Q4-6H PRN wheezing 01/07/24 (2.5 mg base)/3 mL nebulization #90 mL soln doxycycline hyclate 100 mg tablet 100 mg PO BID 5 days #10 tabs 01/12/24 prednisone 20 mg tablet 40 mg (2 x 20 mg) PO DAILY #6 tabs 01/12/24 tizanidine 4 mg capsule 4 mg PO Q8H PRN muscle spasticity 01/17/24 4 days #12 caps gabapentin 600 mg tablet 600 mg PO TID 90 days #270 tabs 01/26/24 clonidine HCl 0.1 mg tablet 0.1 mg PO BID #180 tabs 02/03/24 nabumetone 750 mg tablet 750 mg PO BID PRN pain 30 days #60 02/03/24 tabs Allergies Allergy/AdvReac Type Severity Reaction Status Date / Time omeprazole [From PRILOSEC] Allergy Severe ANAPHYLAXIS Verified 02/15/24 20:14 lansoprazole [Prevacid] Allergy Unknown anaphylaxis Verified 02/15/24 20:14 cyclobenzaprine Allergy Rash Verified 02/15/24 20:14 [From Flexeril] Review of Systems 2 Review of Systems: Positive shortness of breath Positive lower extremity edema Yes all other systems are reviewed and are negative PMFSH Past Medical History Attestation statement: The following information was validated with the patient. Medical History Lumbar spondylosis Trochanteric bursitis of right hip COPD (chronic obstructive pulmonary disease) Exercise hypoxemia Nicotine dependence, cigarettes, uncomplicated Dyslipidemia Obesity History of sepsis Urinary frequency Anxiety associated with depression Bilateral hip pain Lower back pain Somatic dysfunction of left sacroiliac joint Surgical History History of section Family History Family History Father Substance use disorder Mother Substance use disorder Mental health disorder Maternal Grandmother Substance use disorder Mental health disorder Social History Social History Household Members: Spouse Housing: House Do you presently have visiting nurse or other home services: No Alcohol intake: current Alcohol intake frequency: holidays/special occasions only Patient Tobacco Use Status: Current everyday Tobacco user Tobacco use type: Cigarette Cigarette Packs Per Day: 1 Cigarettes Per Day: 20.0 Years Smoked: 30 e-Cigarette/Vaping Use: Never Used Second Hand Smoke Exposure: No Substance Use Type: Heroin Advance Directives: No Advance Directives Information Provided: No service: No Current occupational status: employed Current occupation: [employer] Cognitive needs: No Hearing needs: No Vision needs: No Physical Exam ED Vital Signs: Vital Signs - 24 hr 02/15/24 19:55 02/15/24 20:05 02/15/24 21:50 Temperature 98.2 F Pulse Rate 95 96 Respiratory Rate 18 18 Blood Pressure 96/59 L Pulse Oximetry 84 L 96 Oxygen Delivery Method Room Air Nasal Cannula Oxygen Flow Rate 2 02/15/24 22:34 02/15/24 23:02 Temperature 97.8 F Pulse Rate 99 Respiratory Rate 13 Blood Pressure 110/67 102/67 Pulse Oximetry 96 Oxygen Delivery Method Nasal Cannula Oxygen Flow Rate 2 BMI result Body Mass Index 30.5 Appearance: Alert. Oriented X3. No acute distress. Eyes: Pupils equal, round and reactive to light. ENT: Pharynx normal. Neck: Normal inspection. Neck supple. No lymph nodes noted. No crepitus CVS: Normal heart rate and rhythm. Pulses normal. Normal S1 and S2 Respiratory: Positive crackles bilaterally. Diminished breath sounds bilaterally expiratory wheezing noted Abdomen: Soft and nontender. No rigidity. No distention. good BS x4 Skin: Skin warm and dry. Normal skin color. Normal skin turgor. Extremities: 2+ pitting edema bilateral lower extremity. Neuro: Oriented X 3. No motor deficit. No sensory deficit. Moving all extermities. No slurred speech Medications Administered Discontinued Medications Generic Name Dose Route Start Last Admin Trade Name Amairani PRN Reason Stop Dose Admin Albuterol Sulfate 2.5 mg/ 0 mg 02/15/24 21:36 02/15/24 21:46 Albuterol/Ipratropium 3 ml INHALE 02/15/24 21:37 1 dose ONCE ONE Administration Furosemide 40 mg 02/15/24 21:50 02/15/24 23:02 Furosemide 40 Mg/4 Ml Vial IVPUSH 02/15/24 21:51 40 mg ONCE ONE Administration Protocol Iohexol 65 ml 02/15/24 22:36 02/15/24 22:37 Iohexol 350 Mg/Ml 100 Ml Infus..Btl IV 02/15/24 22:37 65 ml ONCE ONE Administration Methylprednisolone Sodium Succinate 60 mg 02/15/24 21:36 02/15/24 23:02 Methylprednisolone Sod Succ 125 Mg/2 Ml Vial IVPUSH 02/15/24 21:37 60 mg ONCE ONE Administration Medical Decision Making Medical Decision Making [facility] Narrative: Patient is 58 years old presents today with having increasing shortness of breath requiring oxygen to maintain a sat of 90%. Baseline not on oxygen. Patient's chest x-ray showed question CHF. Has no history of blood clot. Complaining of bilateral lower extremity edema. Did have some hip pain. A CTA of the chest was done. Radiology's interpretation the CTA showed no evidence of PE. It did show a question pneumonia. Cultures will be obtained. Antibiotics to be started. Patient is already being treated for possible congestive heart failure as well because her BNP is 200. Case discussed with hospitalist team. Will require admission for further evaluation. Differential Diagnosis Differential Diagnoses: The differential diagnosis associated with the presentation includes Congestive heart failure versus pneumonia versus PE versus COPD Admission/Observation Consideration of admission/observation: Escalation of care including admission/observation considered Consult Healthcare Provider Management of the patient was discussed with: Hospitalist (Consulted by the hospitalist team) Lab Data MDM Lab Attestation statement: I reviewed the patient's lab results. 02/15/24 20:22 02/15/24 20:22 Labs: Lab Results 02/15/24 Range/Units 20:22 WBC 9.5 (4.8-10.8) X10*3/uL RBC 4.78 (4.20-5.50) X10*6/uL Hgb 13.7 (12.0-16.0) g/dl Hct 42.7 (37.0-47.0) % MCV 89.3 (80.0-98.0) fL MCH 28.7 (27.0-33.0) pg MCHC 32.1 (31.0-35.0) g/dl RDW 16.0 (11.0-16.0) % Plt Count 274 (160-400) X10*3/uL MPV 9.5 (9.4-12.3) fL Immature Gran % (Auto) 0.4 (0.0-0.4) % Neut % (Auto) 66.6 (45-73) % Lymph % (Auto) 15.6 L (20-40) % [place] % (Auto) 13.0 H (2-11) % Eos % (Auto) 4.1 H (0-4) % Baso % (Auto) 0.3 (0-2) % Lymph # (Auto) 1.5 (1.2-4.9) X10*3/uL [place] # (Auto) 1.2 (0.1-1.2) X10*3/uL Eos # (Auto) 0.4 (0.0-0.4) X10*3/uL Baso # (Auto) 0.0 (0.0-0.2) X10*3/uL Abs Immat Gran (auto) 0.04 H (0.00-0.03) X10*3/uL Absolute Neuts (auto) 6.3 (2.0-8.3) x10*3/uL Absolute Nucleated RBC 0.000 (0.0-0.012) X10*3/uL Nucleated RBC % (auto) 0.0 (0.0-0.2) /100WBC Sodium 143 (135-145) mmol/L Potassium 3.4 (3.3-5.1) mmol/L Chloride 100 (96-108) mmol/L Carbon Dioxide 34 H (22-29) mmol/L Anion Gap 12 (12-20) BUN 14 (9-16) mg/dL Creatinine 0.61 (0.5-1.4) mg/dL Estim Creat Clear Calc 130.3 Estimated GFR > 60 Random Glucose 91 (60-115) mg/dL Calcium 9.0 (8.4-10.2) mg/dL Total Bilirubin 0.4 (0.0-1.0) mg/dL AST 22 (5-31) U/L ALT 12 (0-31) U/L Alkaline Phosphatase 89 (39-117) U/L Troponin I High Sens 4.8 (<3.5-17.0) ng/L B-Natriuretic Peptide 211 H (<100) pg/mL Total Protein 6.1 L (6.5-8.0) g/dL Albumin 3.4 L (3.5-5.0) g/dL Independent Interpretation I performed an independent interpretation of an: EKG (My interpretation of patient's EKG showed a sinus rhythm heart rate is 90 OR QRS QTC normal no acute ST segment elevation) and Plain X-Ray (Mild CHF) Radiology Impression Discussion of test interpretation with radiology: I have reviewed the radiologist's reading. Radiologist Impression: I reviewed radiology's reading of the chest x-ray along with radiology's reading of the CTA chest External Record Review External record reviewed: Inpatient record and Office record Critical Care Time Critical Care Time Critical Care Time: Yes Total Critical Care Time: 40 Attestation: I have personally provided 40 minutes of critical care time exclusive of time spent on separately billable procedures. ?Time includes review of lab data, radiology results, discussion with consultants, and monitoring for potential decompensation. ?Interventions were performed as documented above Discharge Plan Discharge Clinical Impression: Congestive heart failure, COPD (chronic obstructive pulmonary disease), Pneumonia Patient Disposition: Admitted As Inpatient Prescriptions: No Action venlafaxine 150 mg capsule,extended release 24hr 150 mg PO BID Qty: 180 1RF Breztri Aerosphere 160-9-4.8 mcg/actuation HFA aerosol inhaler 2 inh inhalation BID Qty: 32.1 1RF ipratropium-albuterol 0.5 mg-3 mg(2.5 mg base)/3 mL solution for nebulization 3 ml inhalation Q4-6H PRN (Reason: wheezing) Qty: 90 0RF tizanidine 4 mg capsule 4 mg PO Q8H PRN (Reason: muscle spasticity) 4 Days Qty: 12 0RF Rx Instructions: SIDE-EFFECTS IS DROWSINESS. DO NOT TAKE AT WORK OR WHILE DRIVING gabapentin 600 mg tablet 600 mg PO TID 90 Days Qty: 270 0RF nabumetone 750 mg tablet 750 mg PO BID PRN (Reason: pain) 30 Days Qty: 60 0RF clonidine HCl 0.1 mg tablet 0.1 mg PO BID Qty: 180 1RF doxycycline hyclate 100 mg tablet 100 mg PO BID 5 Days Qty: 10 0RF prednisone 20 mg tablet 40 mg PO DAILY Qty: 6 0RF Print Language: Azeri
[2024-02-15] MEDS: Albuterol Sulfate 2.5 MG, Albuterol/Iprat 2.5/0.5MG 3 ML 3 ML INHALE (21:46)
[2024-02-15 21:50] VITALS: PULSE 96; RESP 18; O2SAT 94
[2024-02-15 22:34] VITALS: BP 110/67; PULSE 99; RESP 13; TEMP 36.6; O2SAT 96
[2024-02-15] MEDS: iohexoL 350 MG/ML 100 ML INFUS..BTL 65 ML IV (22:37)
[2024-02-15 23:02] VITALS: BP 102/67
[2024-02-15] MEDS: Furosemide 40 MG/4 ML VIAL IVPUSH (23:02)
[2024-02-15] MEDS: methylPREDNISolone Sod Succ 125 MG/2 ML VIAL 60 MG IVPUSH (23:02)
--- NOTE | 2024-02-15 23:02 | PC.NURSE ---
held Nitro at this time d/t BP. aware.
[2024-02-15 23:28] LABS: Influenza A PCR NEGATIVE (Negative); Influenza B PCR NEGATIVE (Negative); Resp Syncy Virus RNA Qual PCR NEGATIVE (Negative); SARS COV2 PCR INHOUSE NEGATIVE (Negative)
[2024-02-15 23:54] VITALS: BP 133/82; PULSE 97
[2024-02-15] MEDS: Nitroglycerin 2 % Oint 1 GM Packet 0.5 INCH TRANSDERMA (23:54)
[2024-02-15] MEDS: Azithromycin 500 MG TABLET PO (23:54)
[2024-02-15] MEDS: cefTRIAXone sodium 1 GM VIAL IVPUSH (23:54)
[2024-02-16] VITALS (12 sets, daily range): BP systolic 90–133; BP diastolic 55–82; PULSE 93–103; RESP 14–20; TEMP 36–37.1; O2SAT 90–97; BMI 29.5
[2024-02-16] LABS: Lactic Acid 1.3 mmol/L (0.5-2.0)
[2024-02-16] MEDS: HYDROmorphone HCl 0.5 MG/0.5 ML SYRINGE IVPUSH (01:20)
--- NOTE | 2024-02-16 01:20 | PC.NURSE ---
pt incontinent of urine with purewick, josé care provided and linen changed. with repositioning in bed pt reporting agitation to R. hip and increased pain 10/10, pt restless in bed. icepack provided per request. MD Ware made aware and pt medicated per jun.
[2024-02-16] MEDS: cloNIDine HCL 0.1 MG TABLET PO ×3 (02:25→21:31)
[2024-02-16] MEDS: Venlafaxine HCl ER 150 MG CAP.ER.24H PO ×3 (02:25→21:31)
[2024-02-16] MEDS: Gabapentin 600 MG TABLET PO ×4 (02:25→21:31)
--- NOTE | 2024-02-16 04:15 | PM.IMHP ---
History of Present Illness Date of Service: 02/16/24 Attending physician on admission: Karen Maurer Chief Complaint: Leg edema Rody Xiong is a 58 years old woman with past medical history significant for COPD -ongoing heavy smoker/no home oxygen, chronic right hip pain due to sciatica (events of trochanteric bursitis), anxiety and polysubstance abuse presents to the emergency department complaining of worsening edema to the lower extremities and right hip pain which she attributes to sciatica for which she takes gabapentin. She denied history of congestive heart failure or coronary artery disease. She does complain of wheezing and shortness on breath. Denied chest pain. Did not report any acute gastrointestinal or genitourinary symptoms. There is no fevers or chills. In the ED, she was found to have oxygen saturation of 84% on room air and currently requiring 2 L/min of supplemental oxygen. Blood workup showed no leukocytosis or lactic acidosis. Hemoglobin and platelets are normal. There are no electrolyte imbalances. BNP is 211. Viral testing is negative for influenza, RSV and COVID-19. Chest CTA showed no pulmonary embolism, however, it showed ground-glass opacity in the posterior right upper lobe (infectious versus inflammatory process), scattered area of mucus plugging in the bilateral lower lobes associated with linear atelectasis in the left lower lobe, moderate central lobar emphysema and pulmonary micronodules. ED tx: Solu-Medrol 60 mg IV, DuoNeb, azithromycin 500 mg p.o., ceftriaxone 1 g IV, Dilaudid 0.5 mg IV, nitro ointment 0.5 mg Review of Systems Review of Systems: All 12 systems were reviewed and normal except as noted in HPI. [facility] Medical History (Updated 02/16/24 @ 04:39 by Karen Maurer MD) Acute exacerbation of chronic obstructive pulmonary disease Substance abuse Lumbar spondylosis Trochanteric bursitis of right hip COPD (chronic obstructive pulmonary disease) Exercise hypoxemia Nicotine dependence, cigarettes, uncomplicated Dyslipidemia Obesity History of sepsis Urinary frequency Anxiety associated with depression Bilateral hip pain Lower back pain Somatic dysfunction of left sacroiliac joint Family History Father Substance use disorder Mother Substance use disorder Mental health disorder Maternal Grandmother Substance use disorder Mental health disorder Surgical History History of section Social History Household Members: Spouse Housing: House Do you presently have visiting nurse or other home services: No Alcohol intake: current Alcohol intake frequency: does not drink Patient Tobacco Use Status: Current everyday Tobacco user Tobacco use type: Cigarette Cigarette Packs Per Day: 1 Cigarettes Per Day: 20.0 Years Smoked: 30 Smoked in Last 30 Days: Yes e-Cigarette/Vaping Use: Never Used Second Hand Smoke Exposure: No Use of substances other than those prescribed or required for medical reasons: No Substance Use Type: Heroin Advance Directives: No Advance Directives Information Provided: No service: No Current occupational status: employed Current occupation: [employer] Cognitive needs: No Hearing needs: No Vision needs: No Meds Allergies Allergy/AdvReac Type Severity Reaction Status Date / Time omeprazole [From PRILOSEC] Allergy Severe ANAPHYLAXIS Verified 02/15/24 20:14 lansoprazole [Prevacid] Allergy Unknown anaphylaxis Verified 02/15/24 20:14 cyclobenzaprine Allergy Rash Verified 02/15/24 20:14 [From Flexeril] Active Medications: Current Medications Acetaminophen (Acetaminophen 325 Mg Tablet) 975 mg PO Q6H PRN PRN Reason: Pain, Mild (Pain Scale 1-3), fever or headache Albuterol Sulfate (Albuterol Sulfate (0.083%) 2.5 Mg/3 Ml Vial.Neb) 2.5 mg INHALE Q2H PRN PRN Reason: Shortness of Breath/Wheezing Albuterol/Ipratropium (Albuterol/Iprat 2.5/0.5mg 3 Ml Ampul.Neb) 3 ml INHALE Q4H PRN PRN Reason: wheezing Albuterol/Ipratropium (Albuterol/Iprat 2.5/0.5mg 3 Ml Ampul.Neb) 3 ml INHALE RQ4H WHILE AWAKE PER Albuterol/Ipratropium (Albuterol/Iprat 2.5/0.5mg 3 Ml Ampul.Neb) 3 ml INHALE ONCE STA Stop: 02/16/24 04:09 Clonidine HCl (Clonidine Hcl 0.1 Mg Tablet) 0.1 mg PO BID PER; Protocol Last Admin: 02/16/24 02:25 Dose: 0.1 mg Gabapentin (Gabapentin 600 Mg Tablet) 600 mg PO TID [facility] Last Admin: 02/16/24 02:25 Dose: 600 mg Azithromycin 500 mg/ Sodium (Chloride) 250 mls @ 125 mls/hr IV Q24H [facility] Methylprednisolone Sodium Succinate (Methylprednisolone Sod Succ 40 Mg/Ml Vial) 40 mg IVPUSH BID [facility] Nicotine (Nicotine 21 Mg Patch.Td24) 21 mg TRANSDERMA DAILY [facility] Non-Formulary Medication (Iqsffhqtjs-Braxfiov-Mnqbpnefmr [Breztri Aerosphere]) 2 inhalation INHALE BID [facility] Sodium Chloride (0.9 % Sodium Chloride Flush 3 Ml Syringe) 3 ml IVFLUSH QSHIFT [facility] Venlafaxine HCl (Venlafaxine Hcl Er 150 Mg Cap.Er.24h) 150 mg PO BID [facility] Last Admin: 02/16/24 02:25 Dose: 150 mg Physical Exam Vital Signs and Narrative: Vital Signs: Last Vital Signs Temp 98.8 F 02/16/24 01:45 Pulse 95 02/16/24 01:45 Resp 14 02/16/24 01:45 BP 117/74 02/16/24 01:45 Pulse Ox 91 L 02/16/24 01:45 O2 Del Method Nasal Cannula 02/16/24 01:45 O2 Flow Rate 2 02/16/24 01:45 BMI result Body Mass Index 30.5 Constitutional - Somnolent but awakes easily. No distress. Nasal cannula in place. HEENT - PER, EOMI. Dry oral mucosa. Heart - RRR, No murmurs Lungs - Normal lung expansion, Normal respiratory effort, No respiratory distress. Tachypnea. Bibasilar crackles. Bilateral end expiratory wheezes in the mid and upper lung field. Abdomen - NT / ND; +BS; No rebound or guarding Extremities - Bilateral pitting to the lower extremity associated with exquisite tenderness to palpation, minimal erythema. Distal pulses intact. Dry and scaly skin. Skin - Warm/Dry. No pallor. No jaundice. Neurological - Alert & oriented x3. No focal weakness grossly noted. Normal speech. Psychological - Appropriate affect Results Labs 02/15/24 20:22 02/15/24 20:22 Labs: Laboratory Results - last 24 hr 02/15/24 02/15/24 02/15/24 20:22 22:33 23:42 MCV 89.3 MCH 28.7 MCHC 32.1 RDW 16.0 Plt Count 274 MPV 9.5 Immature Gran % (Auto) 0.4 Neut % (Auto) 66.6 Lymph % (Auto) 15.6 L [place] % (Auto) 13.0 H Eos % (Auto) 4.1 H Baso % (Auto) 0.3 Lymph # (Auto) 1.5 [place] # (Auto) 1.2 Eos # (Auto) 0.4 Baso # (Auto) 0.0 Abs Immat Gran (auto) 0.04 H Absolute Neuts (auto) 6.3 Absolute Nucleated RBC 0.000 Nucleated RBC % (auto) 0.0 Anion Gap 12 Estim Creat Clear Calc 130.3 Estimated GFR > 60 Random Glucose 91 Lactic Acid 1.3 Calcium 9.0 Total Bilirubin 0.4 AST 22 ALT 12 Alkaline Phosphatase 89 Troponin I High Sens 4.8 B-Natriuretic Peptide 211 H Total Protein 6.1 L Albumin 3.4 L Influenza Type A (PCR) NEGATIVE Influenza Type B (PCR) NEGATIVE RSV RNA Qual (PCR) NEGATIVE SARS-CoV-2 RNA (RT-PCR) NEGATIVE Imaging Radiologist's Impressions: Impressions Chest X-Ray 02/15/24 20:15 IMPRESSION: Mild peribronchial vascular opacities may reflect edema or atypical infection. Electronically signed by: Margareth Meraz MD 02/15/2024 09:08 PM [facility] [place] Chest CTA 02/15/24 22:06 IMPRESSION: 1. No pulmonary embolism. 2. Groundglass opacity in the posterior right upper lobe is dependent in appearance and may represent atelectasis but cannot exclude an infectious/inflammatory process. 3. Scattered areas of mucus plugging in the bilateral lower lobes, with associated linear atelectasis in the left lower lobe. 4. Moderate centrilobular emphysema. 5. Stable scattered calcified and noncalcified pulmonary micronodules since prior CT lung screening on 02/12/2023, the largest of which is a noncalcified 5 mm in the superior segment of the left lower lobe. 6. Cholelithiasis without evidence of acute cholecystitis. 7. Stable 2.1 cm adrenal nodule that previously measured -35 HU on prior noncontrast CT of the abdomen/pelvis dated 12/13/2023, and for which no additional imaging is recommended. VTE: negative. Electronically signed by: Albania Stokes MD 02/15/2024 11:00 PM [facility] Assessment and Plan (1) Hypoxic respiratory failure: Status: Acute (2) Acute exacerbation of chronic obstructive pulmonary disease: Status: Acute Plan Rody Xiong is a 58 y/o woman admitted with: Hypoxic respiratory failure secondary to acute exacerbation of COPD + atelectasis ? Pneumonia. Admit to hospitalist service. Telemetry. Pulse oximetry. Supplemental O2 to keep O2 sats> 90%. Continue bronchodilator therapy, IV fluids and empiric IV antibiotic therapy with ceftriaxone and azithromycin. Lower extremity edema; elevated BNP. Lasix IV X1. Check echocardiogram to assess for congestive heart failure. Chronic right hip pain. Continue gabapentin. Toradol 30 mg IV x1. History of polysubstance abuse. Check urine drug screen. Tobacco dependence. Tobacco cessation education. Nicotine patch daily. Depression/anxiety. Continue clonidine and venlafaxine. Code status: Full DVT prophylaxis: Lovenox Patient will need hospitalization for at least 2 midnights for hypoxic respiratory failure treatment due to COPD exacerbation with supplemental oxygen, IV antibiotic therapy and steroids. Quality Stroke Does the patient have a stroke diagnosis?: No VTE Prior VTE?: No VTE Risk Level:: Medical - moderate - high VTE Device Contraindication: Treatment Not Indicated VTE Drug Contraindication: N/A - Med Ordered
[2024-02-16] MEDS: Ketorolac Tromethamine 30 MG/ML VIAL IVPUSH (04:38)
--- NOTE | 2024-02-16 04:41 | PC.NURSE ---
nitro paste removed per md.
[2024-02-16] MEDS: Albuterol/Iprat 2.5/0.5MG 3 ML AMPUL.NEB INHALE ×4 (04:51→19:24)
[2024-02-16 05:10] LABS: Basophils Percent Auto 0.3 % (0-2); Eosinophils Percent Auto 0.3 % (0-4); Hematocrit 41.7 % (37.0-47.0); Hemoglobin 13.3 g/dl (12.0-16.0); Imm Gran Abs Auto 0.02 X10*3/uL (0.00-0.03); Imm Gran Pct Auto 0.3 % (0.0-0.4); Lymphocytes Absolute Auto 0.4 X10*3/uL (1.2-4.9); Lymphocytes Percent Auto 5.4 % (20-40); MANUAL DIFF FLAG SCAN; Mean Corpuscular HGB Conc 31.9 g/dl (31.0-35.0); Mean Corpuscular Hemoglobin 28.1 pg (27.0-33.0); Mean Platelet Volume 9.6 fL (9.4-12.3); Monocytes Absolute Auto 0.1 X10*3/uL (0.1-1.2); Monocytes Percent Auto 1.9 % (2-11); Neutrophils Absolute Auto 6.7 x10*3/uL (2.0-8.3); Neutrophils Percent Auto 91.8 % (45-73); Platelet Count 277 X10*3/uL (160-400); Red Blood Count 4.74 X10*6/uL (4.20-5.50); Red Cell Distribution Width 15.8 % (11.0-16.0); SCAN SMEAR FLAG 1; White Blood Count 7.2 X10*3/uL (4.8-10.8)
[2024-02-16 05:21] LABS: Anion Gap 17 (12-20); Blood Urea Nitrogen 9 mg/dL (9-16); Calcium 8.7 mg/dL (8.4-10.2); Carbon Dioxide 33 mmol/L (22-29); Chloride 98 mmol/L (96-108); Creatinine Clr Calc Pharmacy 134.7; Estimated Glomerular Filt Rate > 60; Glucose Random 135 mg/dL (60-115); Potassium 3.5 mmol/L (3.3-5.1); Sodium 144 mmol/L (135-145)
[2024-02-16 05:37] LABS: SLIDE REVIEW VERIFIED
[2024-02-16] MEDS: oxyCODONE HCl Immed Release 5 MG TABLET PO ×2 (06:35→19:47)
--- NOTE | 2024-02-16 07:00 | CA_ITS ---
Transthoracic Echocardiogram Patient (Last, First, Middle): Rody Xiong, Gender: Female Date of : 1965 Age: 58 Procedure Date: 02/16/2024 Procedure Type: Transthoracic Echocardiogram [place] [facility] [place] Height: 180.34 cm Weight: 98.88 kg BSA: 2.19 m2 Heart Rate: bpm BP: 110 / 65 mmHg Clamshell Operator: TO Referring MD: Karen Maurer MD Symptoms: shortness of breath, low O2 sats, leg edema Study Quality: Fair/Contrast Conclusions: - 1. Low normal LV ejection fraction of 50-55% with impaired relaxation filling pattern 2. Normal cardiac valvular Dopplers 3. Mildly elevated right ventricular systolic pressure but significantly elevated right atrial pressures 4. No gross pericardial effusion Findings Procedure Information Contrast agent, definity, is being given per protocol without apparent complications. Left Ventricle Normal left ventricular cavity size. There is normal left ventricular wall thickness. The left ventricular systolic function is low normal. The visually estimated ejection fraction is between 50-55%. Spectral Doppler is indicative of an impaired relaxation filling pattern. Right Ventricle Normal right ventricular cavity size and systolic function. Atria The left atrium is normal in size. Interatrial shunt cannot be excluded. The right atrium is normal in size. Aortic Valve The aortic valve structure and function is likely normal. There is no aortic valve stenosis. There is no aortic valve regurgitation. Mitral Valve Normal mitral valve structure and function. There is trace mitral valve regurgitation. There is no mitral valve stenosis. Pulmonic Valve The pulmonic valve is likely normal. Tricuspid Valve Likely normal tricuspid valve structure and function. There is mild tricuspid valve regurgitation. Significantly elevated right atrial pressure. Mild pulmonary hypertension is present. Great Vessels All visible segments of the aorta are normal in size. The pulmonary artery was not well visualized. There is no dilatation of the ascending aorta measuring 3.30 cm. Venous The inferior vena cava is moderately dilated and does not collapse with inspiration. Pericardium/Pleural There is no evidence of pericardial effusion. Prior Study Comparison Changes noted compared to prior study dated: 04/13/2022. RV systolic pressure are marginally improved Measurements 2D Linear Measurements IVSd: 0.88 0.6-0.9/0.6-1.0 cm LVIDd: 4.82 3.9-5.3/4.2-5.9 cm LVIDd Index: 2.20 2.4-3.2/2.2-3.1 cm/m2 LVIDs: 3.60 2.0-3.6 cm LVPWd: 0.73 0.7-1.1 cm LA Diam: 3.10 2.7-3.8/3.0-4.0 cm LAIDs Index: 1.42 1.5-2.3 cm/m2 LV Mass: 160.02 67-162/88-224 g LV Mass Index: 73.07 43-95/49-115 g/m2 LVOT Diam: 2.00 3.0+(-)1.3 cm 2D Systolic Function EF 4C: 51.50 >55% EF 2C: 47.30 >55% EF BiP: 50.00 >55% Mitral Valve MV Pk E: 0.72 MV PK A: 0.87 MV Decel Time: 120.00 E/A: 0.80 E'Lateral: 8.38 E'Medial: 7.18 E/E' Med: 10.10 E/E' Lat: 8.60 PHT: 35.00 MVA PHT: 6.29 Decel [place]: 6.03 Aortic Valve AoV Pk Amari: 1.81 AoV Mn Amari: 1.18 AoV VTI: 0.33 AoV Pk Grad: 13.00 Aov Mn Grad: 6.00 MYESHA Cont.VTI: 2.21 LVOT LVOT Pk Amari: 1.19 LVOT Mn Amari: 0.82 LVOT VTI: 0.24 LVOT Pk Grad: 6.00 LVOT Mn Grad: 3.00 LVOT Diam: 2.00 LVOT Area: 3.14 Diastolic Function MV Pk E: 0.72 MV Pk A: 0.87 E/A: 0.80 E'Medial: 7.18 E/E' Med: 10.10 E' Laterial: 8.38 E/E' Lat: 8.60 Right Ventricle TAPSE (mm): 23.90 TVS' Amari: 13.10 Tricuspid Valve TR Pk Amari: 2.66 TR Pk Grad: 28.00 RA Press: 15.00 RVSP: 43.00 Great Vessels Aorta Sinus of Valsalva: 3.14 2.0-3.5 cm Ao Asc: 3.30 2.1-3.4 cm Updated in Other Vendor System with Status of Final Rigoberto Froilan MD electronically signed on 02/16/2024 4:35:19 PM with status of Final
[2024-02-16 07:17] LABS: Amphetamine Screen Urine Not Detected (Not Detect); Barbiturates, Urine Not Detected (Not Detect); Benzodiazepines Screen Urine Not Detected (Not Detect); Buprenorphine Scr Positive (Not Detect); Cannabinoid Screen Urine Not Detected (Not Detect); Cocaine Screen Urine Not Detected (Not Detect); Fentanyl, urine Not Detected (Not Detect); Methadone Screen, Urine Not Detected (Not Detect); Opiate Screen Urine Not Detected (Not Detect); Oxycodone Screen Urine Not Detected (Not Detect); Phencyclidine Screen Urine Not Detected (Not Detect)
--- NOTE | 2024-02-16 07:28 | PC.RT ---
RT went to see pt for scheduled tx. Pt was found off O2. Pt had mild cyanosis to lips and feet, O2 SAT taken and pt was 78% on RA. Pt placed back on NC and SATs improved to 94% on 4L NC. Pt educated on oxygen and not to take it off. Tx given as scheduled.
--- NOTE | 2024-02-16 08:48 | PHA.MEDREC ---
Addendum entered by Roxie To RPh 02/16/24 09:02: Reviewed by [facility] Original Note: Pharmacy Consult ? Medication Reconciliation Pharmacy reviewed med rec done by nursing. Nabumetone 750mg tabs or Celecoxib 200mg tabs were not on the med list even tho Nabumetone 750mg was filled 02/09 for a 30 day supply and Celecoxib 200mg was filled for 01/23 for 30 days. I went and spoke with patient and she confirmed the medications on the med rec. The patient states she is no longer taking the Ipratropium Inhaler, I updated and took that off the med rec. I asked about the Nabumetone 750mg and the patient states she is no longer taking that due to her not liking the taste of it anymore or how it makes the patient feel. She did confirm she is still taking the Celecoxib 200mg tabs 1 tab BID, I updated that on the med rec. She confirmed she took her medications about 2 days ago.
[2024-02-16] MEDS: Nicotine 21 MG PATCH.TD24 TRANSDERMA (09:28)
[2024-02-16] MEDS: Azithromycin 500 MG in 0.9 % Sodium Chloride 250 ML 125 MG IV (09:40)
[2024-02-16] MEDS: Enoxaparin Sodium 40 MG/0.4 ML SYRINGE SUBCUT (09:40)
[2024-02-16] MEDS: 0.9 % Sodium Chloride Flush 3 ML SYRINGE IVFLUSH ×3 (09:41→21:32)
[2024-02-16] MEDS: methylPREDNISolone Sod Succ 40 MG/ML VIAL IVPUSH ×2 (09:42→21:32)
--- NOTE | 2024-02-16 10:14 | MHC.CM.PN ---
Patient lives with her and she is active with [facility]. Patient may benefit from a PT Eval to assist with disposition (home/resume [facility] vs [facility]). CM has initiated and will follow for dc planning. PCP is Dr. Ezra Zuñiga and Patient declined a HCP.
--- NOTE | 2024-02-16 12:41 | PM.EVENT ---
Event Note Date of Service: 02/16/24 Event Note: admitted this morning. pt seen/examined, meds, labs, images reviewed. Med rec completed a/p per h and p from this morning, likely dc tomorrow Time Spent With Patient Time: Total time managing care of this patient today ____ minutes.
--- NOTE | 2024-02-16 12:52 | HO.WOUND ---
Wound Consult: Initial 58yr old? female admitted to [facility] [place] on 02/16/24 04:06- See progress notes and H&P for detailed history.? Wound consult placed for buttock wound POA.? Patient agreeable to assessment and photo documentation.? Patient reports she has been sitting her her computer chair for days at home she reports she has been incontinent or urine often and is often sitting in soiled chair and clothes. She reports she has no services at home and requires help but does not have any. She reports her does not help her with her care. Coccyx, Buttock, Bilateral Ischium and Bilateral Posterior Thighs Coccyx and buttock noted for significant MASD -scattered areas of full thickness tissue loss with slough adherent to wound bed - dry desquamation and mirrored wound edges along gluteal cleft - Triad applied Right ischium Left ischium Etiology: ??Bilateral Posterior Thighs - Present on Admission Wound Bed: Right thigh is noted for DTI in evolution lifting epidermal layer and nonblanchable tissue Left thigh is noted for full thickness tissue loss with adherent yellow slough noted and granulation buds noted in wound base Drainage / Odor: difficult to assess pt was incontinent Edges: ? irregular and rolled Philomena wound: Friction and MASD noted - No Induration, Fluctuance or Warmth noted Pain: significant pain reported Goals of Treatment: ? Triad to protect from friction and moisture and allow for autolytic healing / debridement Etiology: ??Bilateral Ischium - Present on Admission Wound Bed: Right ischium is noted for stage 3 pressure injury pale pink full thickness tissue loss Left Ischium is noted for intact red maroon nonblanchable tissue over bony prominence Drainage / Odor: difficult to assess pt was incontinent Edges: ? irregular Philomena wound: Friction and MASD noted - No Induration, Fluctuance or Warmth noted Pain: significant pain reported Goals of Treatment: ? Triad to protect from friction and moisture and allow for autolytic healing / debridement Left Breast MASD - Skin fold noted for full thickness tissue loss - linear shape noted pt reports it was due to no devices but poor cleansing and she felt her breast was stuck to her abdomen - friction noted. Recommend follows providers topical recommendations for antifungal treatment if ordered but given no advancing boarders and only yeast odor may treat with Triad and observe for improvement. Perineal areas noted for MASD - scattered areas of tissue loss and red erythema noted - recommend Triad to protect from moisture and friction. Of note bilateral heels assessed - redness noted - remains intact and blanchable - heel protection foams were applied. recommend off loading heels with pillows. Recommendations: 1. Turn and Reposition every 2 hours and as needed for patient comfort.? Use pillows or wedges to support off loading positions. 2. Off Load all bony prominences with use of pillows and heel boots if needed.? Apply Preventative foams where needed. ? 3. Monitor for incontinence and moisture control, use barrier creams when needed for prevention and treatment. 4. Provide adequate and supplemental nutrition.? 5. Order low air loss mattress. 6. When applicable maintain blood glucose levels per Providers order. 7. Left Breast - Cleanse with balanced wipes, pat dry. Apply thin layer of Triad to wound bed - only pat and dab no scrub and rub when cleansing. Apply Triad to wound bed twice daily. 8. Perineal area - Cleanse with balanced wipes, pat dry. Apply thin layer of Triad to wound bed - only pat and dab no scrub and rub when cleansing. Apply Triad to wound bed twice daily and after episodes of incontinence. 9. Coccyx, buttock, Bilateral Ischium, Bilateral Posterior Thighs - Off Load Pressure - Cleanse with balanced wipes, or Eli spray pat dry. Apply thin layer of Triad to wound bed - only pat and dab no scrub and rub when cleansing. Apply Triad to wound bed twice daily and after episodes of incontinence. May cover Left thigh with topical dressing to keep Triad in place. 10. Bilateral Heels - Apply skin prep, Apply Heel foam dressings, peel back and assess Q shift and change every 5 days and PRN. Continue to off load pressure from surface of bed with pillows. Re-consult wound care Nurse for wound deterioration or wound changes.
[2024-02-16] MEDS: Acetaminophen 325 MG TABLET 975 MG PO (19:48)
[2024-02-17] VITALS (10 sets, daily range): BP systolic 108–151; BP diastolic 73–88; PULSE 80–99; RESP 18–20; TEMP 36.2–36.8; O2SAT 94–100; BMI 29.5
[2024-02-17] MEDS: Albuterol/Iprat 2.5/0.5MG 3 ML AMPUL.NEB INHALE ×3 (07:50→19:06)
[2024-02-17] MEDS: Enoxaparin Sodium 40 MG/0.4 ML SYRINGE SUBCUT (08:45)
[2024-02-17] MEDS: Nicotine 21 MG PATCH.TD24 TRANSDERMA (08:46)
[2024-02-17] MEDS: cloNIDine HCL 0.1 MG TABLET PO ×2 (08:47→20:43)
[2024-02-17] MEDS: Venlafaxine HCl ER 150 MG CAP.ER.24H PO ×2 (08:47→20:43)
[2024-02-17] MEDS: oxyCODONE HCl Immed Release 5 MG TABLET PO ×3 (08:47→18:42)
[2024-02-17] MEDS: methylPREDNISolone Sod Succ 40 MG/ML VIAL IVPUSH ×2 (08:47→20:43)
[2024-02-17] MEDS: Gabapentin 600 MG TABLET PO ×3 (08:47→20:43)
[2024-02-17] MEDS: 0.9 % Sodium Chloride Flush 3 ML SYRINGE IVFLUSH ×2 (09:13→20:44)
[2024-02-17] MEDS: Azithromycin 500 MG in 0.9 % Sodium Chloride 250 ML 125 MG IV (09:14)
[2024-02-17] MEDS: Lactated Ringers 1,000 ML 100 ML IVCONT ×2 (09:14→23:25)
[2024-02-17 10:54] LABS: Anion Gap 16 (12-20); Blood Urea Nitrogen 12 mg/dL (9-16); Calcium 8.6 mg/dL (8.4-10.2); Carbon Dioxide 31 mmol/L (22-29); Chloride 101 mmol/L (96-108); Creatinine Clr Calc Pharmacy 137.4; Estimated Glomerular Filt Rate > 60; Glucose Random 167 mg/dL (60-115); Potassium 3.7 mmol/L (3.3-5.1); Sodium 144 mmol/L (135-145)
--- NOTE | 2024-02-17 11:32 | MHC.CLN ---
PT WITH INCREASED NUTRITION RISK R/T PRESSURE INJURIES PO 50,100% DIET RX: CARDIAC-APPROPRIATE RECOMMEND ADDING ENSURE MAX BID TO PROMOTE WOUND HEALING SUPP TO PROVIDE 300KCALS, 60G PROTEIN MONITOR PO INTAKE AND ENCOURAGE SUPPLEMENTS SEE ALSO FULL CLINICAL NUTRITION ASSESSMENT
--- NOTE | 2024-02-17 12:02 | HO.PM.IMPN ---
Subjective Subjective Date of Service: 02/17/24 Interval History: F/u on copd exacerbation still sob, O2 in low 80s without O2 Physical Exam Vital Signs: Vital Signs: Last Vital Signs Temp 98.2 F 02/17/24 10:56 Pulse 97 02/17/24 10:56 Resp 18 02/17/24 10:56 BP 108/74 02/17/24 10:56 Pulse Ox 98 02/17/24 10:56 O2 Del Method Nasal Cannula 02/17/24 10:56 O2 Flow Rate 3 02/17/24 10:56 BMI result Body Mass Index 29.5 Const: Other: General: AO X 3, no acute distress Resp: tight air movement CVS: S1,S2,RRR GI: +BS, NT, no distention Skin: No rash Neuro: motor grossly intact Psych: appropriate affect Objective Data Active Medications Acetaminophen (Acetaminophen 325 Mg Tablet) 975 mg PO Q6H PRN PRN Reason: Pain, Mild (Pain Scale 1-3), fever or headache Last Admin: 02/16/24 19:48 Dose: 975 mg Documented By: MILENA Albuterol Sulfate (Albuterol Sulfate (0.083%) 2.5 Mg/3 Ml Vial.Neb) 2.5 mg INHALE Q2H PRN PRN Reason: Shortness of Breath/Wheezing Albuterol/Ipratropium (Albuterol/Iprat 2.5/0.5mg 3 Ml Ampul.Neb) 3 ml INHALE Q4H PRN PRN Reason: wheezing Albuterol/Ipratropium (Albuterol/Iprat 2.5/0.5mg 3 Ml Ampul.Neb) 3 ml INHALE RQ4H WHILE AWAKE [facility] Last Admin: 02/17/24 11:53 Dose: Not Given Documented By: DEJAN Non-Admin Reason: Patient Refused Clonidine HCl (Clonidine Hcl 0.1 Mg Tablet) 0.1 mg PO BID [facility]; Protocol Last Admin: 02/17/24 08:47 Dose: 0.1 mg Documented By: AGUSTIN Enoxaparin Sodium (Enoxaparin Sodium 40 Mg/0.4 Ml Syringe) 40 mg SUBCUT Q24H [facility] Last Admin: 02/17/24 08:45 Dose: 40 mg Documented By: AGUSTIN Gabapentin (Gabapentin 600 Mg Tablet) 600 mg PO TID [facility] Last Admin: 02/17/24 08:47 Dose: 600 mg Documented By: AGUSTIN Azithromycin 500 mg/ Sodium (Chloride) 250 mls @ 125 mls/hr IV Q24H [facility] Last Infusion: 02/17/24 11:56 Dose: Infused Documented By: AGUSTIN Lactated Ringer's (Lr) 1,000 mls @ 100 mls/hr IVCONT .Q10H [facility] Last Admin: 02/17/24 09:14 Dose: 100 mls/hr Documented By: AGUSTIN Methylprednisolone Sodium Succinate (Methylprednisolone Sod Succ 40 Mg/Ml Vial) 40 mg IVPUSH BID [facility] Last Admin: 02/17/24 08:47 Dose: 40 mg Documented By: AGUSTIN Nicotine (Nicotine 21 Mg Patch.Td24) 21 mg TRANSDERMA DAILY [facility] Last Admin: 02/17/24 08:46 Dose: 21 mg Documented By: AGUSTIN Non-Formulary Medication (Wtgcnytlou-Eetjwksn-Gvmregjpir [Breztri Aerosphere]) 2 inhalation INHALE BID [facility] Oxycodone HCl (Oxycodone Hcl Immed Release 5 Mg Tablet) 5 mg PO Q4H PRN PRN Reason: Pain, Severe (Pain Scale 7-10) Last Admin: 02/17/24 08:47 Dose: 5 mg Documented By: AGUSTIN Sodium Chloride (0.9 % Sodium Chloride Flush 3 Ml Syringe) 3 ml IVFLUSH QSHIFT [facility] Last Admin: 02/17/24 09:13 Dose: 3 ml Documented By: AGUSTIN Venlafaxine HCl (Venlafaxine Hcl Er 150 Mg Cap.Er.24h) 150 mg PO BID [facility] Last Admin: 02/17/24 08:47 Dose: 150 mg Documented By: AGUSTIN Labs 02/16/24 04:49 02/17/24 10:32 Labs: Laboratory Results - last 24 hr 02/17/24 10:32 Anion Gap 16 Estim Creat Clear Calc 137.4 Estimated GFR > 60 Random Glucose 167 H Calcium 8.6 Microbiology Microbiology Results: Microbiology 02/15/24 23:53 Blood Culture - Preliminary Blood - Venous No growth after 24 hours. 02/15/24 23:42 Blood Culture - Preliminary Blood - Venous No growth after 24 hours. Assessment and Plan (1) Acute exacerbation of chronic obstructive pulmonary disease: Status: Acute Plan 58 yo female with PMH of chronic pain on gabapentin, HLD, depression, chronic respiratory failure per pulm notes COPD on PRN 2L NC O2 at home here with acute exacerbation of copd with hypoxia Acute Hypoxic respiratory failure secondary to acute exacerbation of COPD with hypoxia -continue bronchodilators by Nebs, IV steroid, O2 goal of 88 to 94 Lower extremity edema; elevated BNP. echo show ef 50 to 55, received lasix x 1 Chronic right hip pain. Continue gabapentin. History of polysubstance abuse. Check urine drug screen. Tobacco dependence. Tobacco cessation education. Nicotine patch daily. Depression/anxiety. Continue clonidine and venlafaxine. Code status: Full PT eval DVT prophylaxis: Lovenox Quality Stroke Does the patient have a stroke diagnosis?: No VTE Prior VTE?: No VTE Risk Level:: Medical - moderate - high VTE Device Contraindication: Treatment Not Indicated VTE Drug Contraindication: N/A - Med Ordered
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
[2024-02-17] MEDS: Acetaminophen 325 MG TABLET 975 MG PO (18:43)
[2024-02-18] VITALS (9 sets, daily range): BP systolic 131–164; BP diastolic 83–96; PULSE 81–96; RESP 16–20; TEMP 36.2–37.1; O2SAT 94–98
[2024-02-18] MEDS: Acetaminophen 325 MG TABLET 975 MG PO ×4 (03:11→21:07)
[2024-02-18] MEDS: oxyCODONE HCl Immed Release 5 MG TABLET PO ×4 (03:13→18:06)
[2024-02-18] MEDS: Albuterol/Iprat 2.5/0.5MG 3 ML AMPUL.NEB INHALE ×3 (08:11→18:59)
[2024-02-18] MEDS: Venlafaxine HCl ER 150 MG CAP.ER.24H PO ×2 (09:06→21:00)
[2024-02-18] MEDS: cloNIDine HCL 0.1 MG TABLET PO ×2 (09:06→21:00)
[2024-02-18] MEDS: Gabapentin 600 MG TABLET PO ×3 (09:07→21:00)
[2024-02-18] MEDS: methylPREDNISolone Sod Succ 40 MG/ML VIAL IVPUSH ×2 (09:07→21:00)
[2024-02-18] MEDS: Nicotine 21 MG PATCH.TD24 TRANSDERMA (09:07)
[2024-02-18] MEDS: Enoxaparin Sodium 40 MG/0.4 ML SYRINGE SUBCUT (09:07)
[2024-02-18] MEDS: Azithromycin 500 MG in 0.9 % Sodium Chloride 250 ML 125 MG IV (09:30)
[2024-02-18] MEDS: Lactated Ringers 1,000 ML 100 ML IVCONT ×2 (09:30→20:13)
--- NOTE | 2024-02-18 10:24 | MHC.CLN ---
F/U PT WITH INCREASED NUTRITION RISK R/T PRESSURE INJURIES PO 50-100% DIET RX: CARDIAC-APPROPRIATE PT RECEIVING ENSURE MAX BID TO PROMOTE WOUND HEALING SUPP PROVIDES 300KCALS, 60G PROTEIN CONTINUE TO MONITOR PO INTAKE AND ENCOURAGE SUPPLEMENTS
--- NOTE | 2024-02-18 12:56 | P.PNIM_ITS ---
Subjective Subjective Date of Service: 02/18/24 Interval History: F/u on copd exacerbation no sob, overall is feeling better Physical Exam 2 Vital Signs: Vital Signs: Last Vital Signs Temp 98.8 F 02/18/24 11:02 Pulse 81 02/18/24 11:02 Resp 20 02/18/24 11:02 BP 147/96 H 02/18/24 11:02 Pulse Ox 95 02/18/24 11:02 O2 Del Method Nasal Cannula 02/18/24 11:02 O2 Flow Rate 2 02/18/24 11:02 BMI result Body Mass Index 29.5 a General: AO X 3, no acute distress Resp: mild wheezes CVS: S1,S2,RRR GI: +BS, NT, no distention Skin: No rash Neuro: motor grossly intact Psych: appropriate affect Objective Data Active Medications Acetaminophen (Acetaminophen 325 Mg Tablet) 975 mg PO Q6H PRN PRN Reason: Pain, Mild (Pain Scale 1-3), fever or headache Last Admin: 02/18/24 09:06 Dose: 975 mg Documented By: AGUSTIN Albuterol Sulfate (Albuterol Sulfate (0.083%) 2.5 Mg/3 Ml Vial.Neb) 2.5 mg INHALE Q2H PRN PRN Reason: Shortness of Breath/Wheezing Albuterol/Ipratropium (Albuterol/Iprat 2.5/0.5mg 3 Ml Ampul.Neb) 3 ml INHALE Q4H PRN PRN Reason: wheezing Albuterol/Ipratropium (Albuterol/Iprat 2.5/0.5mg 3 Ml Ampul.Neb) 3 ml INHALE RQ4H WHILE AWAKE [facility] Last Admin: 02/18/24 11:32 Dose: Not Given Documented By: DEJAN Non-Admin Reason: Patient Refused Clonidine HCl (Clonidine Hcl 0.1 Mg Tablet) 0.1 mg PO BID [facility]; Protocol Last Admin: 02/18/24 09:06 Dose: 0.1 mg Documented By: AGUSTIN Enoxaparin Sodium (Enoxaparin Sodium 40 Mg/0.4 Ml Syringe) 40 mg SUBCUT Q24H [facility] Last Admin: 02/18/24 09:07 Dose: 40 mg Documented By: AGUSTIN Gabapentin (Gabapentin 600 Mg Tablet) 600 mg PO TID [facility] Last Admin: 02/18/24 09:07 Dose: 600 mg Documented By: AGUSTIN Azithromycin 500 mg/ Sodium (Chloride) 250 mls @ 125 mls/hr IV Q24H [facility] Last Infusion: 02/18/24 11:55 Dose: Infused Documented By: AGUSTIN Lactated Ringer's (Lr) 1,000 mls @ 100 mls/hr IVCONT .Q10H [facility] Last Admin: 02/18/24 09:30 Dose: 100 mls/hr Documented By: AGUSTIN Methylprednisolone Sodium Succinate (Methylprednisolone Sod Succ 40 Mg/Ml Vial) 40 mg IVPUSH BID [facility] Last Admin: 02/18/24 09:07 Dose: 40 mg Documented By: AGUSTIN Nicotine (Nicotine 21 Mg Patch.Td24) 21 mg TRANSDERMA DAILY [facility] Last Admin: 02/18/24 09:07 Dose: 21 mg Documented By: AGUSTIN Non-Formulary Medication (Sipoultgjx-Zmzscvsk-Zajsqhusye [Breztri Aerosphere]) 2 inhalation INHALE BID [facility] Oxycodone HCl (Oxycodone Hcl Immed Release 5 Mg Tablet) 5 mg PO Q4H PRN PRN Reason: Pain, Severe (Pain Scale 7-10) Last Admin: 02/18/24 09:06 Dose: 5 mg Documented By: AGUSTIN Sodium Chloride (0.9 % Sodium Chloride Flush 3 Ml Syringe) 3 ml IVFLUSH QSHIFT [facility] Last Admin: 02/18/24 09:21 Dose: Not Given Documented By: AGUSTIN Non-Admin Reason: IV Running Venlafaxine HCl (Venlafaxine Hcl Er 150 Mg Cap.Er.24h) 150 mg PO BID [facility] Last Admin: 02/18/24 09:06 Dose: 150 mg Documented By: AGUSTIN Labs 02/16/24 04:49 02/17/24 10:32 Microbiology Microbiology Results: Microbiology 02/15/24 23:53 Blood Culture - Preliminary Blood - Venous No growth after 48 hours. 02/15/24 23:42 Blood Culture - Preliminary Blood - Venous No growth after 48 hours. Assessment and Plan (1) Acute exacerbation of chronic obstructive pulmonary disease: Status: Acute Plan 58 yo female with PMH of chronic pain on gabapentin, HLD, depression, chronic respiratory failure per pulm notes COPD on PRN 2L NC O2 at home here with acute exacerbation of copd with hypoxia Acute Hypoxic respiratory failure secondary to acute exacerbation of COPD with hypoxia -continue bronchodilators by Nebs, IV steroid, O2 goal of 88 to 94 Lower extremity edema; elevated BNP. echo show ef 50 to 55, received lasix x , lasix 20 daily Chronic right hip pain. Continue gabapentin. History of polysubstance abuse. Check urine drug screen. Tobacco dependence. Tobacco cessation education. Nicotine patch daily. Depression/anxiety. Continue clonidine and venlafaxine. Code status: Full PT eval DVT prophylaxis: Lovenox Quality Stroke Does the patient have a stroke diagnosis?: No VTE Prior VTE?: No VTE Risk Level:: Medical - moderate - high VTE Device Contraindication: Treatment Not Indicated VTE Drug Contraindication: N/A - Med Ordered
--- NOTE | 2024-02-18 14:25 | MHC.CM.PN ---
Per rounds, pt is ready to be DC and was accepted at [facility] choice of [facility], and they were going for auth and then messaged that they rescinded the bed offer. CM has reached out to other accepting SNFs to ask them to re-open referral.
[2024-02-18] MEDS: 0.9 % Sodium Chloride Flush 3 ML SYRINGE IVFLUSH (21:01)
[2024-02-19] VITALS (11 sets, daily range): BP systolic 119–178; BP diastolic 84–106; PULSE 81–105; RESP 16–20; TEMP 36.2–37.3; O2SAT 95–98
[2024-02-19] MEDS: oxyCODONE HCl Immed Release 5 MG TABLET PO ×4 (00:23→23:06)
[2024-02-19] MEDS: cloNIDine HCL 0.1 MG TABLET PO ×3 (06:18→19:56)
[2024-02-19] MEDS: methylPREDNISolone Sod Succ 40 MG/ML VIAL IVPUSH ×2 (09:15→19:56)
[2024-02-19] MEDS: Acetaminophen 325 MG TABLET 975 MG PO ×2 (09:15→19:55)
[2024-02-19] MEDS: Gabapentin 600 MG TABLET PO ×3 (09:15→19:56)
[2024-02-19] MEDS: Venlafaxine HCl ER 150 MG CAP.ER.24H PO ×2 (09:16→19:55)
[2024-02-19] MEDS: Nicotine 21 MG PATCH.TD24 TRANSDERMA (09:16)
[2024-02-19] MEDS: Enoxaparin Sodium 40 MG/0.4 ML SYRINGE SUBCUT (09:16)
[2024-02-19] MEDS: Azithromycin 500 MG in 0.9 % Sodium Chloride 250 ML 125 MG IV (09:16)
[2024-02-19] MEDS: 0.9 % Sodium Chloride Flush 3 ML SYRINGE IVFLUSH ×2 (09:17→19:41)
--- NOTE | 2024-02-19 12:13 | HO.PM.IMPN ---
Subjective Subjective Date of Service: 02/19/24 Interval History: F/u on copd exacerbation no sob, feeling anxious Physical Exam Vital Signs: Vital Signs: Last Vital Signs Temp 98.2 F 02/19/24 10:55 Pulse 81 02/19/24 10:55 Resp 16 02/19/24 10:55 BP 147/90 H 02/19/24 10:55 Pulse Ox 95 02/19/24 10:55 O2 Del Method Nasal Cannula 02/19/24 10:55 O2 Flow Rate 2 02/19/24 10:55 BMI result Body Mass Index 29.5 a General: AO X 3, no acute distress Resp: mild wheezes CVS: S1,S2,RRR GI: +BS, NT, no distention Skin: No rash Neuro: motor grossly intact Psych: appropriate affect Objective Data Active Medications Acetaminophen (Acetaminophen 325 Mg Tablet) 975 mg PO Q6H PRN PRN Reason: Pain, Mild (Pain Scale 1-3), fever or headache Last Admin: 02/19/24 09:15 Dose: 975 mg Documented By: ELROY Albuterol Sulfate (Albuterol Sulfate (0.083%) 2.5 Mg/3 Ml Vial.Neb) 2.5 mg INHALE Q2H PRN PRN Reason: Shortness of Breath/Wheezing Albuterol/Ipratropium (Albuterol/Iprat 2.5/0.5mg 3 Ml Ampul.Neb) 3 ml INHALE Q4H PRN PRN Reason: wheezing Albuterol/Ipratropium (Albuterol/Iprat 2.5/0.5mg 3 Ml Ampul.Neb) 3 ml INHALE RQ4H WHILE AWAKE [facility] Last Admin: 02/19/24 11:18 Dose: Not Given Documented By: DIYA Non-Admin Reason: Patient Refused Clonidine HCl (Clonidine Hcl 0.1 Mg Tablet) 0.1 mg PO BID [facility]; Protocol Last Admin: 02/19/24 06:18 Dose: 0.1 mg Documented By: CRESCENCIO Comments: given per direction of MD Irby for HTN Enoxaparin Sodium (Enoxaparin Sodium 40 Mg/0.4 Ml Syringe) 40 mg SUBCUT Q24H [facility] Last Admin: 02/19/24 09:16 Dose: 40 mg Documented By: ELROY Gabapentin (Gabapentin 600 Mg Tablet) 600 mg PO TID [facility] Last Admin: 02/19/24 09:15 Dose: 600 mg Documented By: ELROY Azithromycin 500 mg/ Sodium (Chloride) 250 mls @ 125 mls/hr IV Q24H [facility] Last Admin: 02/19/24 09:16 Dose: 125 mls/hr Documented By: ELROY Lactated Ringer's (Lr) 1,000 mls @ 100 mls/hr IVCONT .Q10H [facility] Last Infusion: 02/19/24 04:27 Dose: Infused Documented By: CRESCENCIO Methylprednisolone Sodium Succinate (Methylprednisolone Sod Succ 40 Mg/Ml Vial) 40 mg IVPUSH BID [facility] Last Admin: 02/19/24 09:15 Dose: 40 mg Documented By: ELROY Nicotine (Nicotine 21 Mg Patch.Td24) 21 mg TRANSDERMA DAILY [facility] Last Admin: 02/19/24 09:16 Dose: 21 mg Documented By: ELROY Non-Formulary Medication (Wjjtqgrlvd-Kfgbxtaa-Sxzirsnbcr [Breztri Aerosphere]) 2 inhalation INHALE BID [facility] Oxycodone HCl (Oxycodone Hcl Immed Release 5 Mg Tablet) 5 mg PO Q4H PRN PRN Reason: Pain, Severe (Pain Scale 7-10) Last Admin: 02/19/24 05:57 Dose: 5 mg Documented By: CRESCENCIO Sodium Chloride (0.9 % Sodium Chloride Flush 3 Ml Syringe) 3 ml IVFLUSH QSHIFT [facility] Last Admin: 02/19/24 09:17 Dose: 3 ml Documented By: ELROY Venlafaxine HCl (Venlafaxine Hcl Er 150 Mg Cap.Er.24h) 150 mg PO BID [facility] Last Admin: 02/19/24 09:16 Dose: 150 mg Documented By: ELROY Labs 02/16/24 04:49 02/17/24 10:32 Microbiology Microbiology Results: Microbiology 02/15/24 23:53 Blood Culture - Preliminary Blood - Venous No growth after 48 hours. Assessment and Plan (1) Acute exacerbation of chronic obstructive pulmonary disease: Status: Acute Plan 58 yo female with PMH of chronic pain on gabapentin, HLD, depression, chronic respiratory failure per pulm notes COPD on PRN 2L NC O2 at home here with acute exacerbation of copd with hypoxia Acute Hypoxic respiratory failure secondary to acute exacerbation of COPD with hypoxia -continue bronchodilators by Nebs, IV steroid, O2 goal of 88 to 94 Lower extremity edema; elevated BNP. echo show ef 50 to 55, received lasix x , lasix 20 daily Chronic right hip pain. Continue gabapentin. History of polysubstance abuse. Check urine drug screen. Tobacco dependence. Tobacco cessation education. Nicotine patch daily. Depression/anxiety. Continue clonidine and venlafaxine. Code status: Full PT eval rec [facility] DVT prophylaxis: Lovenox Quality Stroke Does the patient have a stroke diagnosis?: No VTE Prior VTE?: No VTE Risk Level:: Medical - moderate - high VTE Device Contraindication: Treatment Not Indicated VTE Drug Contraindication: N/A - Med Ordered
[2024-02-19] MEDS: Albuterol/Iprat 2.5/0.5MG 3 ML AMPUL.NEB INHALE (15:33)
[2024-02-20] VITALS (9 sets, daily range): BP systolic 142–169; BP diastolic 81–100; PULSE 68–90; RESP 14–20; TEMP 36–36.9; O2SAT 93–97
[2024-02-20] MEDS: oxyCODONE HCl Immed Release 5 MG TABLET PO ×3 (04:24→18:05)
[2024-02-20] MEDS: Albuterol/Iprat 2.5/0.5MG 3 ML AMPUL.NEB INHALE (07:54)
[2024-02-20] MEDS: cloNIDine HCL 0.1 MG TABLET PO ×3 (09:04→20:46)
[2024-02-20] MEDS: Venlafaxine HCl ER 150 MG CAP.ER.24H PO ×2 (09:04→20:46)
[2024-02-20] MEDS: 0.9 % Sodium Chloride Flush 3 ML SYRINGE IVFLUSH ×3 (09:05→20:47)
[2024-02-20] MEDS: Azithromycin 500 MG in 0.9 % Sodium Chloride 250 ML 125 MG IV (09:05)
[2024-02-20] MEDS: Nicotine 21 MG PATCH.TD24 TRANSDERMA (09:05)
[2024-02-20] MEDS: Gabapentin 600 MG TABLET PO ×3 (09:05→20:46)
[2024-02-20] MEDS: Enoxaparin Sodium 40 MG/0.4 ML SYRINGE SUBCUT (09:05)
[2024-02-20] MEDS: methylPREDNISolone Sod Succ 40 MG/ML VIAL IVPUSH (09:05)
--- NOTE | 2024-02-20 12:08 | P.PNIM_ITS ---
Subjective Subjective Date of Service: 02/20/24 Interval History: F/u on copd exacerbation no sob, feeling anxious and doesn't feel good without specific symptoms Physical Exam 2 Vital Signs: Vital Signs: Last Vital Signs Temp 96.9 F 02/20/24 11:35 Pulse 88 02/20/24 11:35 Resp 16 02/20/24 11:35 BP 168/81 H 02/20/24 11:35 Pulse Ox 93 02/20/24 11:35 O2 Del Method Nasal Cannula 02/20/24 11:35 O2 Flow Rate 2 02/20/24 11:35 BMI result Body Mass Index 29.5 a General: AO X 3, no acute distress Resp: mild wheezes CVS: S1,S2,RRR GI: +BS, NT, no distention Skin: No rash Neuro: motor grossly intact Psych: appropriate affect Objective Data Active Medications Acetaminophen (Acetaminophen 325 Mg Tablet) 975 mg PO Q6H PRN PRN Reason: Pain, Mild (Pain Scale 1-3), fever or headache Last Admin: 02/19/24 19:55 Dose: 975 mg Documented By: CRESCENCIO Albuterol Sulfate (Albuterol Sulfate (0.083%) 2.5 Mg/3 Ml Vial.Neb) 2.5 mg INHALE Q2H PRN PRN Reason: Shortness of Breath/Wheezing Albuterol/Ipratropium (Albuterol/Iprat 2.5/0.5mg 3 Ml Ampul.Neb) 3 ml INHALE Q4H PRN PRN Reason: wheezing Albuterol/Ipratropium (Albuterol/Iprat 2.5/0.5mg 3 Ml Ampul.Neb) 3 ml INHALE RQ4H WHILE AWAKE [facility] Last Admin: 02/20/24 11:14 Dose: Not Given Documented By: CARYL Non-Admin Reason: Patient Refused Clonidine HCl (Clonidine Hcl 0.1 Mg Tablet) 0.1 mg PO TID [facility]; Protocol Last Admin: 02/20/24 09:04 Dose: 0.1 mg Documented By: ELROY Enoxaparin Sodium (Enoxaparin Sodium 40 Mg/0.4 Ml Syringe) 40 mg SUBCUT Q24H [facility] Last Admin: 02/20/24 09:05 Dose: 40 mg Documented By: ELROY Gabapentin (Gabapentin 600 Mg Tablet) 600 mg PO TID [facility] Last Admin: 02/20/24 09:05 Dose: 600 mg Documented By: ELROY Azithromycin 500 mg/ Sodium (Chloride) 250 mls @ 125 mls/hr IV Q24H [facility] Last Admin: 02/20/24 09:05 Dose: 125 mls/hr Documented By: ELROY Lactated Ringer's (Lr) 1,000 mls @ 100 mls/hr IVCONT .Q10H [facility] Last Infusion: 02/19/24 04:27 Dose: Infused Documented By: CRESCENCIO Methylprednisolone Sodium Succinate (Methylprednisolone Sod Succ 40 Mg/Ml Vial) 40 mg IVPUSH BID [facility] Last Admin: 02/20/24 09:05 Dose: 40 mg Documented By: ELROY Nicotine (Nicotine 21 Mg Patch.Td24) 21 mg TRANSDERMA DAILY [facility] Last Admin: 02/20/24 09:05 Dose: 21 mg Documented By: ELROY Oxycodone HCl (Oxycodone Hcl Immed Release 5 Mg Tablet) 5 mg PO Q4H PRN PRN Reason: Pain, Severe (Pain Scale 7-10) Last Admin: 02/20/24 04:24 Dose: 5 mg Documented By: CRESCENCIO Sodium Chloride (0.9 % Sodium Chloride Flush 3 Ml Syringe) 3 ml IVFLUSH QSHIFT [facility] Last Admin: 02/20/24 09:05 Dose: 3 ml Documented By: ELROY Venlafaxine HCl (Venlafaxine Hcl Er 150 Mg Cap.Er.24h) 150 mg PO BID [facility] Last Admin: 02/20/24 09:04 Dose: 150 mg Documented By: ELROY Labs 02/16/24 04:49 02/17/24 10:32 Assessment and Plan (1) Acute exacerbation of chronic obstructive pulmonary disease: Status: Acute Plan 58 yo female with PMH of chronic pain on gabapentin, HLD, depression, chronic respiratory failure per pulm notes COPD on PRN 2L NC O2 at home here with acute exacerbation of copd with hypoxia Acute Hypoxic respiratory failure secondary to acute exacerbation of COPD with hypoxia -continue bronchodilators by Nebs, IV steroid to PO prednisone, O2 goal of 88 to 94 Lower extremity edema; elevated BNP. echo show ef 50 to 55, received lasix x , lasix 20 daily Chronic right hip pain. Continue gabapentin. History of polysubstance abuse. Check urine drug screen. Tobacco dependence. Tobacco cessation education. Nicotine patch daily. Depression/anxiety. Continue clonidine and venlafaxine. Code status: Full PT eval rec [facility] DVT prophylaxis: Lovenox awaiting rehab placement Quality Stroke Does the patient have a stroke diagnosis?: No VTE Prior VTE?: No VTE Risk Level:: Medical - moderate - high VTE Device Contraindication: Treatment Not Indicated VTE Drug Contraindication: N/A - Med Ordered
[2024-02-20] MEDS: Furosemide 20 MG TABLET PO (12:25)
[2024-02-20 12:46] LABS: Hematocrit 45.5 % (37.0-47.0); Hemoglobin 14.2 g/dl (12.0-16.0); Mean Corpuscular HGB Conc 31.2 g/dl (31.0-35.0); Mean Corpuscular Hemoglobin 27.7 pg (27.0-33.0); Mean Corpuscular Volume 88.7 fL (80.0-98.0); Mean Platelet Volume 9.5 fL (9.4-12.3); Platelet Count 236 X10*3/uL (160-400); Red Blood Count 5.13 X10*6/uL (4.20-5.50); Red Cell Distribution Width 15.1 % (11.0-16.0); White Blood Count 8.2 X10*3/uL (4.8-10.8)
[2024-02-20 12:58] LABS: Anion Gap 14 (12-20); Blood Urea Nitrogen 16 mg/dL (9-16); Calcium 8.8 mg/dL (8.4-10.2); Carbon Dioxide 32 mmol/L (22-29); Chloride 102 mmol/L (96-108); Creatinine Clr Calc Pharmacy 144.9; Estimated Glomerular Filt Rate > 60; Glucose Random 114 mg/dL (60-115); Potassium 3.3 mmol/L (3.3-5.1); Sodium 145 mmol/L (135-145)
[2024-02-21] VITALS: BP 157/85; PULSE 77; RESP 12; TEMP 36.2; O2SAT 97
[2024-02-21 04:00] VITALS: BP 131/86; PULSE 89; RESP 12; TEMP 36.4; O2SAT 97
[2024-02-21] MEDS: oxyCODONE HCl Immed Release 5 MG TABLET PO (04:48)
[2024-02-21 07:25] VITALS: PULSE 89; RESP 12; O2SAT 95
[2024-02-21] MEDS: Albuterol/Iprat 2.5/0.5MG 3 ML AMPUL.NEB INHALE (07:25)
[2024-02-21 07:34] VITALS: BP 127/77; PULSE 100; RESP 20; TEMP 36.1; O2SAT 95
[2024-02-21] MEDS: Azithromycin 500 MG in 0.9 % Sodium Chloride 250 ML 125 MG IV (08:26)
[2024-02-21] MEDS: Enoxaparin Sodium 40 MG/0.4 ML SYRINGE SUBCUT (08:26)
[2024-02-21] MEDS: Nicotine 21 MG PATCH.TD24 TRANSDERMA (08:27)
[2024-02-21] MEDS: predniSONE 10 MG TABLET 30 MG PO (08:27)
[2024-02-21] MEDS: Venlafaxine HCl ER 150 MG CAP.ER.24H PO (08:28)
[2024-02-21] MEDS: Furosemide 20 MG TABLET PO (08:28)
[2024-02-21] MEDS: Gabapentin 600 MG TABLET PO (08:28)
[2024-02-21] MEDS: 0.9 % Sodium Chloride Flush 3 ML SYRINGE IVFLUSH (08:28)
[2024-02-21] MEDS: cloNIDine HCL 0.1 MG TABLET PO (08:28)
[2024-02-21] MEDS: Acetaminophen 325 MG TABLET 975 MG PO (08:36)
--- NOTE | 2024-02-21 10:35 | MHC.CM.PN ---
PT ONLY HAD ONE BED OFFER WHICH WAS FROM [facility] ON WEDNESDAY REQUESTED THEY SUBMIT FOR AUTH THIS MORNING SNF CONFIRMED THEY HAVE AUTH AND WILL NEED A LESS THAN 30 IN THE DCS BLS TRANSPORT BOOKED FOR 1200 HOURS WITH [facility]
--- NOTE | 2024-02-21 10:53 | PM.DS ---
DS: Providers Provider Date of Service: 02/21/24 Date of admission: 02/16/24 04:06 Primary care physician: DAVE Sherman Consults: 02/16/24 10:20 Consult to Wound Care Routine Reason for consultation: Buttock, Posterior Thighs, Perineal and breast folds DS: Diagnosis Discharge Diagnosis (1) Acute exacerbation of chronic obstructive pulmonary disease: Status: Acute DS: Summary Hospital Course Hospital Course: admission hpi Chief Complaint: Leg edema Rody Xiong is a 58 years old woman with past medical history significant for COPD -ongoing heavy smoker/no home oxygen, chronic right hip pain due to sciatica (events of trochanteric bursitis), anxiety and polysubstance abuse presents to the emergency department complaining of worsening edema to the lower extremities and right hip pain which she attributes to sciatica for which she takes gabapentin. She denied history of congestive heart failure or coronary artery disease. She does complain of wheezing and shortness on breath. Denied chest pain. Did not report any acute gastrointestinal or genitourinary symptoms. There is no fevers or chills. In the ED, she was found to have oxygen saturation of 84% on room air and currently requiring 2 L/min of supplemental oxygen. Blood workup showed no leukocytosis or lactic acidosis. Hemoglobin and platelets are normal. There are no electrolyte imbalances. BNP is 211. Viral testing is negative for influenza, RSV and COVID-19. Chest CTA showed no pulmonary embolism, however, it showed ground-glass opacity in the posterior right upper lobe (infectious versus inflammatory process), scattered area of mucus plugging in the bilateral lower lobes associated with linear atelectasis in the left lower lobe, moderate central lobar emphysema and pulmonary micronodules. ED tx: Solu-Medrol 60 mg IV, DuoNeb, azithromycin 500 mg p.o., ceftriaxone 1 g IV, Dilaudid 0.5 mg IV, nitro ointment 0.5 mg hospital course: Acute Hypoxic respiratory failure secondary to acute exacerbation of COPD with hypoxia. She was treated with IV steroid, bronchodilators by Neb and Oxygen and empiric antibiotic. Her respiratory status has significantly improved. Hypoxia has resolved. She will complete 3 more days of steroid. Also has completed 5 days of empiric Azithromycin. Lower extremity edema; elevated BNP. echo show ef 50 to 55, daily 20 mg of lasix Chronic right hip pain. Continue gabapentin. History of polysubstance abuse. Check urine drug screen. Tobacco dependence. Tobacco cessation education. Nicotine patch daily. Patient hip pain--she sees ortho on outpatient basis and will be considered for surgery in the future To short term rehab for less than 30 days Time Attestation Discharge Coordination Time (in mins): 45 Quality: Safe Use of Opioids Does Pt have an Active Cancer Diagnosis on the Problem List?: No Quality: Stroke Does the patient have a stroke diagnosis?: No Physical Exam Vital Signs: Vital Signs: Last Vital Signs Temp 97.0 F 02/21/24 07:34 Pulse 100 02/21/24 07:34 Resp 20 02/21/24 07:34 BP 127/77 02/21/24 07:34 Pulse Ox 95 02/21/24 07:34 O2 Del Method Nasal Cannula 02/21/24 07:34 O2 Flow Rate 2 02/21/24 07:34 BMI result Body Mass Index 29.5 Const: Other: General: AO X 3, no acute distress Resp: CTA bilateral CVS: S1,S2,RRR GI: +BS, NT, no distention Skin: No rash Neuro: motor grossly intact Psych: appropriate affect DS: Data Data Completed and Pending Labs on day of discharge: Laboratory Results - last 24 hr 02/20/24 12:16 WBC 8.2 RBC 5.13 Hgb 14.2 Hct 45.5 MCV 88.7 MCH 27.7 MCHC 31.2 RDW 15.1 Plt Count 236 MPV 9.5 Absolute Nucleated RBC 0.000 Nucleated RBC % (auto) 0.0 Sodium 145 Potassium 3.3 Chloride 102 Carbon Dioxide 32 H Anion Gap 14 BUN 16 Creatinine 0.54 Estim Creat Clear Calc 144.9 Estimated GFR > 60 Random Glucose 114 Calcium 8.8 Preliminary micro results at discharge 02/15/24 23:42 Blood Culture - Preliminary Blood - Venous No growth after 48 hours. Discharge Plan Discharge Anticipated Discharge Date/Time: 02/21/24 10:39 Patient Disposition: Xfer SNF Discharge Diagnosis: COPD exacerbation with acute hypoxic respiratory failure Referrals: [facility] [Outside] Ezra Zuñiga, LANDSCAPE SPECIALIST-BC [Primary Care Provider] - 1 Week Discharge Medications: New ipratropium-albuterol 0.5 mg-3 mg(2.5 mg base)/3 mL Solution For Nebulization 3 ml inhalation RQ4H WHILE AWAKE PRN (Reason: shortness of breath or wheezing) Qty: 60 0RF furosemide 20 mg Tablet 20 mg PO DAILY Qty: 30 0RF Protocol: Hold for SBP< HOLD for SBP < : 90 prednisone 10 mg Tablet 30 mg PO DAILY Qty: 6 0RF tramadol 50 mg Tablet 25 mg PO Q6H PRN (Reason: Pain, Severe (Pain Scale 7-10)) Qty: 15 0RF Continued venlafaxine 150 mg capsule,extended release 24hr 150 mg PO BID Qty: 180 1RF Breztri Aerosphere 160-9-4.8 mcg/actuation HFA aerosol inhaler 2 inh inhalation BID Qty: 32.1 1RF gabapentin 600 mg tablet 600 mg PO TID 90 Days Qty: 270 0RF clonidine HCl 0.1 mg tablet 0.1 mg PO BID Qty: 180 1RF celecoxib 200 mg capsule 200 mg PO BID Discharge Orders: Discharge Order (Routine); Ordered 02/21/24 Ordered By: Luis E Tripp Diet: Advance to usual diet Activity on Discharge: As tolerated Stand Alone Forms: Patient Portal Discharge page Print Language: Bahamian Care Plan Goals: recovery from copd exacerbation and acute hypoxic respiratory failure Health Concerns: Chronic respiratory failure due to COPD COPD exacerbation Plan of Treatment: Take prednisone as directed Use inhalers as directed Follow-up with your primary care doctor within a week of appointment. To short term rehab for less than 30 days Assessment: See above
[2024-02-21] MEDS: traMADoL HCL 50 MG TABLET 25 MG PO (11:34)
== END 2024-02-21 11:51 | disposition skilled nursing facility (03) | DRG 140 ==
LOC: HO.ED 23:28 → HO.EDOVER 02-16 04:15 → HO.IMC 02-16 08:32
PROVIDERS: Admitting Provider Internal Medicine; Emergency Provider Emergency Medicine Emergency Medical Services; PCP Nurse Practitioner Family; Visit Provider Internal Medicine
DX: J43.2 Centrilobular emphysema (principal); J18.9 Pneumonia, unspecified organism; F17.210 Nicotine dependence, cigarettes, uncomplicated; J98.11 Atelectasis; Z20.822 Contact with and (suspected) exposure to COVID-19; F32.A Depression, unspecified; F19.11 Other psychoactive substance abuse, in remission; G89.29 Other chronic pain; M25.551 Pain in right hip; F41.9 Anxiety disorder, unspecified; Z71.6 Tobacco abuse counseling; Z91.148 Patient's other noncompliance with medication regimen for other reason; Z79.899 Other long term (current) drug therapy
CPT/HCPCS: 0241U; 36415; 71045; 71275; 80048; 80053; 80307; 83605; 83880; 84484; 85025; 85027; 87040; 93005; 93306; 93970; 94640; 97162; 99285; J0456; J0696; J1171; J1650; J1885; J1940; J2919; J7120; Q9957; Q9967

== ENCOUNTER → 2024-02-15 20:14 | Outpatient (BNV) | payer OTHER, SELFPAY | PROVIDERS: Admitting Provider Internal Medicine; Emergency Provider Emergency Medicine Emergency Medical Services; PCP Nurse Practitioner Family; Visit Provider Internal Medicine Cardiovascular Disease | DX: R06.02 Shortness of breath (principal); I49.3 Ventricular premature depolarization | CPT/HCPCS: 93010 ==

== ENCOUNTER 2024-02-16 04:06 | Outpatient (BNV) | payer OTHER, SELFPAY | END 2024-02-16 07:00 | PROVIDERS: Admitting Provider Internal Medicine; Emergency Provider Emergency Medicine Emergency Medical Services; PCP Nurse Practitioner Family; Visit Provider Internal Medicine Cardiovascular Disease | DX: I36.1 Nonrheumatic tricuspid (valve) insufficiency (principal) | CPT/HCPCS: 93306 ==

== ENCOUNTER → 2024-02-16 04:06 | Outpatient (BNV) | payer OTHER, SELFPAY | PROVIDERS: Admitting Provider Internal Medicine; Emergency Provider Emergency Medicine Emergency Medical Services; PCP Nurse Practitioner Family; Visit Provider Internal Medicine | DX: J44.1 Chronic obstructive pulmonary disease with (acute) exacerbation (principal); J96.01 Acute respiratory failure with hypoxia | CPT/HCPCS: 99223; 99231; 99232; 99499 ==

== ENCOUNTER 2024-03-03 12:53 | Outpatient (REF) | payer OTHER, SELFPAY | END 2024-03-03 12:54 | disposition home or self-care (01) | LOC: HO.HOSX 12:53 | PROVIDERS: PCP Nurse Practitioner Family; Referring Provider Orthopaedic Surgery; Visit Provider Physician Assistant | DX: M16.11 Unilateral primary osteoarthritis, right hip (principal); M54.50 Low back pain, unspecified; M79.651 Pain in right thigh | CPT/HCPCS: 73502; 99202 ==

== ENCOUNTER 2024-03-03 12:53 | Outpatient (AMB) | payer OTHER, SELFPAY ==
--- NOTE | 2024-03-03 13:02 | A.SPINEOV_ITS ---
Intake Visit Reasons: Back pain Intake Note: Mrs. Xiong is here today c/o low back pain. MRI done @ [facility] [place]. 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 She reports that it started slowly, but has been getting progressively worse. It starts in the right side of her buttock, radiates down into her lateral thigh, and goes into her knee. There is some extension past the knee but most of the pain is focused in the posterior buttock and the anterior lateral thigh into the knee. She has done some physical therapy, tried to wait this out. She went to the emergency room a number of times was given Toradol, pain medications etc.. Over the course of 3 or 4 months, the symptoms only continued to escalate and get worse. Sometime maybe a month ago or so, she was admitted to the hospital for pneumonia and COPD exacerbation in the setting of severe pain. She thinks it was probably because she was not moving much. She has been unable to bear weight on her right leg now for at least a month. She has been living at a correction now for the last few weeks because she is unable to stand or bear any weight on the right leg. She reports her leg is starting to externally rotate. She has not lost any strength in the distal leg, but is having a hard time lifting her leg up to get in and out of bed. There is no tingling going down the leg. There is no back pain associated with this. She has been on steroids a few times since all this started and believe she may have been on it recently due to her pneumonia and COPD flare-up. She has not had any lumbar injections. She did get a lumbar MRI showing degenerative scoliosis and moderate to severe stenosis at L3-4. PMH: History of anxiety, COPD, she has been a lifelong smoker. She had a C- section done 20 years ago. Recently had pneumonia as outlined above. Denies any history of cardiac disease, liver problems, kidney issues, diabetes, cancer, strokes, bleeding disorders or blood clots Social hx: At the correction she smoking about 2-3 cigarettes a day, she reports no history of alcohol abuse or recreational drug use Medications: Gabapentin, Breztri inhaler, baclofen, BuSpar, Celebrex, clonidine, Lasix, gabapentin, trazodone, venlafaxine Allergies: Prevacid Physical exam: The patient is awake alert oriented, she is in a wheelchair. I asked her to stand up out of the wheelchair on her own and she has quite a bit of difficulty, needing some assistance. Upon motor exam testing, she has good distal strength, but any attempts at manipulation or hip flexion, especially internal rotation, she will scream in pain, have a lot of difficulty, with the exam, trying to resist me. She has a negative straight leg raise. Reflexes are intact at the patella, I could not test her Achilles because of the amount of pain she is in. No sensory loss. Left leg exam is otherwise normal. Imaging review: There is a lumbar MRI showing degenerative scoliosis with a dextroscoliotic curvature. She has anterior and lateral bridging osteophytes throughout the L2-3 L3-4 and even a little bit at L4-5. She has moderate stenosis at L3-4 with lateral recess narrowing. She has lesser degrees of stenosis in the L4-5 region. She has hip x-ray in September showing arthritis. She also has a CT of the abdomen done in December with the radiologist reporting fusion of the right hip joint joint with in anterior subluxation. Impression: 58-year-old female presents to the office today for evaluation of right leg pain, no back pain. The patient reports pain in the posterior buttock that does radiate down into her lateral and anterior compartment of her leg into her knee. There is little bit of pain that extends past the knee as well into the right calf. The pain has escalated over number of months to where she is now unable to ambulate and unable to stand. She has tremendous amounts of pain with internal rotation of her leg, and hip flexion to where she is almost in tears and will not let me examine her or touch her leg. She has no sensory loss or reflex changes. She definitely has stenosis at L3-4 which could explain pain going into her anterior thigh, but her clinical history suggests her something more acute going on. Her symptoms have escalated now to the point where she can not walk or even bear weight on the leg with standing. This is not typical of stenosis as it usually has a very insidious slow onset and predictable progression. 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 I am going to get a new set of x-rays of her right hip because the last imaging done of her hips suggested there was some anterior subluxation in her physical exam findings are concerning for hip pathology. She has had a number of different trial of steroids over the course of the last 3 or 4 months, so maybe she is at risk for AVN. I will contact Dr. Sweeney to see if he can take a look at them just to make sure I am not missing something. If he feels that this is okay or that there is nothing acute going on with the hip, we can focus our attention on the stenosis at L3-4. I will review all the imaging with Dr. Ferreira as well. Thank you for allowing us to care for your patient. The total time spent with this visit with this patient was 75 minutes reviewing history, physical exam, lumbar imaging review, and implementation of treatment plan or further diagnostic testing Luke Ferreira MD,PhD [facility] Orders: Orders XR hip RT min 2V Today M16.11 - Unilateral primary osteoarthritis, right hip Coding Level of Care Code New Pt Level 5 (72758) Diagnoses Primary osteoarthritis of right hip M16.11 Laterality: right Osteoarthritis type: primary
== END 2024-03-03 14:12 | disposition home or self-care (01) ==
PROVIDERS: PCP Nurse Practitioner Family; Referring Provider Orthopaedic Surgery; Visit Provider Physician Assistant
DX: M16.11 Unilateral primary osteoarthritis, right hip (principal)
CPT/HCPCS: 99205

== ENCOUNTER 2024-03-06 13:17 | Outpatient (AMB) | payer OTHER, SELFPAY ==
--- NOTE | 2024-03-06 13:19 | MHC.OFFVIS ---
Intake Visit Reasons: OV-Right hip pain- Intake Note: Rody is a 58 year old female who presents today for a follow up of her right hip OA. Patient was seen with Neuro spine to rule out involvement with hip pain. Today she would like to discuss Right Hip Replacement. Patient reports that she is not in a skilled nursing due to her pain. She is wheelchair bound as she is unable to walk. Her QOL has significantly diminished. Allergies omeprazole [From PRILOSEC] Allergy (Severe, Verified 03/06/24 13:19) ANAPHYLAXIS lansoprazole [Prevacid] Allergy (Unknown, Verified 03/06/24 13:19) anaphylaxis cyclobenzaprine [From Flexeril] Allergy (Verified 03/06/24 13:19) Rash HPI HPI OV-Right hip pain-: Details: Rody is a 58 year old female who presents today for a follow up of her right hip OA. Patient was seen with Neuro spine to rule out involvement with hip pain. Today she would like to discuss Right Hip Replacement. Patient reports that she is not in a skilled nursing due to her pain. She is wheelchair bound as she is unable to walk. Her QOL has significantly diminished. I sent her to spine given some of the spine symptoms she was having and repeat x-rays demonstrated destruction of the femoral head likely secondary to avascular necrosis. [facility] Medical History (Updated 03/08/24 @ 11:22 by Kamaljit Sweeney MD) Acute exacerbation of chronic obstructive pulmonary disease Substance abuse Lumbar spondylosis Trochanteric bursitis of right hip COPD (chronic obstructive pulmonary disease) Exercise hypoxemia Nicotine dependence, cigarettes, uncomplicated Dyslipidemia Obesity History of sepsis Urinary frequency Anxiety associated with depression Bilateral hip pain Lower back pain Somatic dysfunction of left sacroiliac joint Surgical History History of section Family History Father Substance use disorder Mother Substance use disorder Mental health disorder Maternal Grandmother Substance use disorder Mental health disorder Social History Household Members: Spouse Housing: House Do you presently have visiting nurse or other home services: No Alcohol intake: current Alcohol intake frequency: does not drink Patient Tobacco Use Status: Current everyday Tobacco user Tobacco use type: Cigarette Cigarette Packs Per Day: 1 Cigarettes Per Day: 20.0 Years Smoked: 30 e-Cigarette/Vaping Use: Never Used Second Hand Smoke Exposure: No Substance Use Type: Heroin service: No Current occupational status: employed Current occupation: [employer] Cognitive needs: No Hearing needs: No Vision needs: No Physical Exam Extrem Other: Wheelchair-bound with painful hip range of motion. Results Reviewed Results Reviewed: I personally reviewed relevant radiographs. Total loss of femoral head architecture. Assessment & Plan Assessment & Plan (1) Avascular necrosis of bone of right hip: Code(s): M87.051 - Idiopathic aseptic necrosis of right femur Category: Medical Plan: This is a 50-year-old woman with severe AVN of her right hip. The change in radiographs over the past 5 months has been impressive. Unfortunately she has also been hospitalized now in rehab because of her cardiac function and her COPD. I do think she needs a hip replacement and I discussed this with her. She is having a difficult time with bedsores at this time and I think it is going to be difficult to get this done quickly but it should be done as soon as possible. I discussed this with her. We will begin the medical clearance process and working on wound care for her bed sores. Coding Level of Care Code Est Pt Level 4 (56071) Diagnoses Avascular necrosis of bone of right hip M87.051
== END 2024-03-06 14:18 | disposition home or self-care (01) ==
PROVIDERS: PCP Nurse Practitioner Family; Visit Provider Orthopaedic Surgery
DX: M87.051 Idiopathic aseptic necrosis of right femur (principal)
CPT/HCPCS: 99214

== ENCOUNTER → 2024-03-06 13:17 | Outpatient (BNVA) | payer OTHER, SELFPAY | PROVIDERS: PCP Nurse Practitioner Family; Visit Provider Orthopaedic Surgery | DX: M87.051 Idiopathic aseptic necrosis of right femur (principal); Z99.3 Dependence on wheelchair | CPT/HCPCS: 99212 ==

== ENCOUNTER 2024-03-15 12:58 | Outpatient (AMB) | payer OTHER, SELFPAY ==
[2024-03-15 13:28] VITALS: BP 122/60; PULSE 108; BMI 37.5
--- NOTE | 2024-03-15 13:28 | MHC.OFFVIS ---
Vital Signs 03/15/24 13:28 Height 5 ft Weight 192 lb BMI 37.5 BMI Reason not done Patient refused/unable BP 122/60 Blood Pressure Location Lt brachial Position Sitting Pulse 108 H Pulse Source Monitor Intake Visit Reasons: Preop/ Patel/ total hip Allergies omeprazole [From PRILOSEC] Allergy (Severe, Verified 03/06/24 13:19) ANAPHYLAXIS lansoprazole [Prevacid] Allergy (Unknown, Verified 03/06/24 13:19) anaphylaxis cyclobenzaprine [From Flexeril] Allergy (Verified 03/06/24 13:19) Rash Medication List - Last Reconciled 03/15/24 by Rigoberto Mcgovern MD baclofen 5 mg PO TID Breztri Aerosphere 160-9-4.8 mcg/actuation (tjzfwyxmov-nwzvolax-zrxhrbmoxo) 2 inhalations inhalation BID NS celecoxib 200 mg PO BID clonidine HCl 0.1 mg PO BID furosemide 20 mg See Protocol PO DAILY gabapentin 700 mg PO TID ipratropium-albuterol 0.5 mg-3 mg(2.5 mg base)/3 mL 3 mL inhalation RQ4H WHILE AWAKE PRN tramadol 25 mg (1/2 x 50 mg) PO Q6H PRN venlafaxine ER 50 mg PO BID HPI Comments Details: Thank you for referring Rody in cardiology consultation for preoperative cardiovascular risk stratification prior to right hip replacement. She says she started having symptoms pause September and they got progressively worse and she continued to have significant pain in the right hip eventually leading to diagnose of avascular necrosis of the right hip which will need hip reconstruction. She has as a result becomes significantly limited in her activity level and currently is at a halfway facility as she can not take care of herself without any significant pain. She does get short of breath with minimal activity although she says she has had history of long-term smoking. She may have diagnose of COPD as well. However she has been hospitalized twice 1 time for bilateral cellulitis with leg swelling and 1 time with pneumonia. She was noted to have elevated BNP and has been started on low-dose Lasix therapy. Echocardiogram done in February showed low normal LV ejection fraction with mildly elevated right ventricular systolic pressure and significantly elevated right atrial pressure suggestive of right heart failure. She was started on low-dose Lasix therapy and since then she says her leg edema and symptoms of congestive have improved significantly. She says she gets pain frequently and as a result gets very anxious. She has not had any chest pain. [facility] Medical History Acute exacerbation of chronic obstructive pulmonary disease Substance abuse Lumbar spondylosis Trochanteric bursitis of right hip COPD (chronic obstructive pulmonary disease) Exercise hypoxemia Nicotine dependence, cigarettes, uncomplicated Dyslipidemia Obesity History of sepsis Urinary frequency Anxiety associated with depression Bilateral hip pain Lower back pain Somatic dysfunction of left sacroiliac joint Surgical History History of section Family History Father Substance use disorder Mother Substance use disorder Mental health disorder Maternal Grandmother Substance use disorder Mental health disorder Social History Household Members: Spouse Housing: House Do you presently have visiting nurse or other home services: No Alcohol intake: current Alcohol intake frequency: does not drink Patient Tobacco Use Status: Current everyday Tobacco user Tobacco use type: Cigarette Cigarette Packs Per Day: 1 Cigarettes Per Day: 20.0 Years Smoked: 30 e-Cigarette/Vaping Use: Never Used Second Hand Smoke Exposure: No Substance Use Type: Heroin service: No Current occupational status: employed Current occupation: [employer] Cognitive needs: No Hearing needs: No Vision needs: No Review of Systems Const Denies weakness ENT Denies dizziness Card Denies chest pain, Denies chest pain with activity, Denies syncope, Denies rapid heart rate, Denies pedal edema, Denies edema, Denies leg edema, Denies lightheadedness, Denies palpitations, Denies dyspnea, Denies dyspnea on exertion and Denies orthopnea Resp Denies cough, Denies dyspnea and Denies dyspnea on exertion GI Denies hematochezia and Denies change in stool character Musc Denies abnormal gait, Denies muscle cramps, Denies muscle weakness, Denies numbness, Denies radiating pain into limb and Denies tingling Neuro Denies abnormal gait, Denies dizziness, Denies syncope, Denies numbness, Denies tingling and Denies weakness Endo Denies palpitations Physical Exam Vital Signs: Last Vital Signs Pulse 108 H 03/15/24 13:28 BP 122/60 03/15/24 13:28 BMI result Body Mass Index 37.5 Const General: cooperative, comfortable, no acute distress, alert, awake, anxious and other (Emotional) Nutritional Appearance: obese Orientation/consciousness: patient oriented x3 Limitations: wheelchair HEENT Head: Yes normocephalic and Yes atraumatic Neck Neck: Yes trachea midline, Yes supple and Yes no JVD Resp Effort & Inspection: normal respiratory effort Auscultation: clear to auscultation bilaterally Cardio Jugular venous distension: no JVD Palpation: normal PMI Rate: tachycardic Rhythm: regular rhythm Heart sounds: S1 normal heart sound present, S2 normal heart sound present, no click, no gallops, no murmurs and no rubs GI Auscultation: normal bowel sounds Skin General skin exam: no rashes or lesions noted Neuro General: patient oriented x3 and no focal motor deficits Extrem General: Yes no clubbing, cyanosis or edema Psych Affect: Anxious affect present Office Procedures EKG Details: EKG shows sinus tachycardia with poor R-wave progression most likely lead placement [id number], Complete Assessment & Plan Assessment & Plan (1) Preoperative cardiovascular examination: Code(s): Z01.810 - Encounter for preprocedural cardiovascular examination Category: Medical Plan: Preoperative cardiovascular risk stratification in this middle-aged woman with very limited functionality currently wheelchair-bound to undergo intermediate risk surgery under general anesthesia. She was risk factors of obesity, smoking and sedentary lifestyle. At this point time I think she requires further evaluation for myocardial ischemia as this may impact her risk of surgery. Would suggest a vasodilating myocardial perfusion imaging in the very near future to assess for this risk. If this is completely within normal limits, this would portend a low risk for perioperative cardiovascular morbidity mortality. This was discussed with her. Rationale for stress test was discussed, she understands and agrees. Clinically currently appears to be euvolemic and I would continue with her current diuretic dose of Lasix till the day of surgery where this can be withheld. I am starting also on Jardiance which may need to be withheld as per anesthesia protocol (2) (HFpEF) heart failure with preserved ejection fraction: Code(s): I50.30 - Unspecified diastolic (congestive) heart failure Category: Medical Plan: Heart failure preserved ejection fraction, predominantly right-sided heart failure most likely could be related to COPD and pulmonary hypertension and avid right atrial pressures although heart failure with preserved ejection fraction related to LV diastolic dysfunction can not be entirely ruled out. Clinically today appears to be euvolemic and well compensated. Her LV ejection fraction is at low end of normal. Will start her on Jardiance 10 mg to help with the heart failure syndrome to reduce risk of rehospitalization and help with management of heart failure. This was discussed with her. She understands agrees. Potential side effects were discussed as well. Encouraged to in the future after hip surgery to participate in weight loss program. Low-salt diet was discussed. Will follow up in the clinic in 6 months time, sooner p.r.n.. Thank you for allowing me to partake in her care Orders: Orders CA lexiscan stress w sunil 2 Days Rigoberto Mcgovern MD Z01.810 - Encounter for preprocedural cardiovascular examination Medications: Changed From gabapentin 600 mg PO TID 90 days 270 tabs 0RF To gabapentin 700 mg PO TID JERMAINE Pascal-ZAHEER From venlafaxine ER 150 mg PO BID 180 caps 1RF F41.8 - Other specified anxiety disorders To venlafaxine ER 50 mg PO BID F41.8 - Other specified anxiety disorders JERMAINE Pascal-BC Coding Level of Care Code New Pt Level 4 (84507) Complex EM visit Add On G2211 Diagnoses Preoperative cardiovascular examination Z01.810 (HFpEF) heart failure with preserved ejection fraction I50.30 CPT Codes EKG - CPT: 31787-[id number], Complete ([id number])
== END 2024-03-15 14:09 | disposition home or self-care (01) ==
PROVIDERS: PCP Nurse Practitioner Family; Visit Provider Internal Medicine Cardiovascular Disease
DX: I50.30 Unspecified diastolic (congestive) heart failure (principal); Z01.810 Encounter for preprocedural cardiovascular examination; R00.0 Tachycardia, unspecified
CPT/HCPCS: 93010; 99214; G2211

== ENCOUNTER → 2024-03-15 12:58 | Outpatient (BNVA) | payer OTHER, SELFPAY | PROVIDERS: PCP Nurse Practitioner Family; Visit Provider Internal Medicine Cardiovascular Disease | DX: Z01.811 Encounter for preprocedural respiratory examination (principal); J44.1 Chronic obstructive pulmonary disease with (acute) exacerbation; R09.02 Hypoxemia; F17.210 Nicotine dependence, cigarettes, uncomplicated; I11.0 Hypertensive heart disease with heart failure; I50.30 Unspecified diastolic (congestive) heart failure | CPT/HCPCS: 93005; 99212 ==

== ENCOUNTER 2024-03-15 15:23 | Outpatient (AMB) | payer OTHER, SELFPAY ==
[2024-03-15 15:35] VITALS: BP 130/102; PULSE 112; O2SAT 94
--- NOTE | 2024-03-15 15:35 | MHC.OFFVIS ---
Vital Signs 03/15/24 15:35 Height 5 ft BP 130/102 H Blood Pressure Location Lt brachial Position Sitting Pulse 112 H Pulse Source Pulse Oximeter Pulse Oximetry (%) 94 Oxygen Delivery Method Room Air Intake Visit Reasons: COPD Intake Note: pt is here for christopher follow up and a pre op clearance for hip surgery by , this is affecting her whole life and needs this surgery done. no short of breath, some wheeze once in a while. 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 Allergies omeprazole [From PRILOSEC] Allergy (Severe, Verified 03/15/24 15:43) ANAPHYLAXIS lansoprazole [Prevacid] Allergy (Unknown, Verified 03/15/24 15:43) anaphylaxis cyclobenzaprine [From Flexeril] Allergy (Verified 03/15/24 15:43) Rash Medication List - Last Reconciled 03/15/24 by Ramon Avila MD baclofen 5 mg PO TID Breztri Aerosphere 160-9-4.8 mcg/actuation (itkhkdgzba-nxgosfly-imctktpzym) 2 inhalations inhalation BID NS celecoxib 200 mg PO BID clonidine HCl 0.1 mg PO BID furosemide 20 mg See Protocol PO DAILY gabapentin 700 mg PO TID ipratropium-albuterol 0.5 mg-3 mg(2.5 mg base)/3 mL 3 mL inhalation RQ4H WHILE AWAKE PRN tramadol 25 mg (1/2 x 50 mg) PO Q6H PRN venlafaxine ER 50 mg PO BID Do you need a note to return to daycare/school/sports/work: No HPI HPI COPD: Details: THIS 58 YEARS OLD FEMALE is here for pulmonary follow-up and clearance for surgery. She was seen by me in June 2022 in relation to chronic obstructive pulmonary disease due to her ongoing heavy smoking. She did not come back for follow-up. She does have history of substance abuse in addition to heavy smoking. Recently admitted to [facility] with acute exacerbation of COPD. Initially she was quite hypoxemic but after treatment she improved. Sent to a rehab facility. She claims that her breathing is better. She has very little cough or expectoration. She does not need to use oxygen. Still smoking about 5-6 cigarettes a day. She has painful right hip, due to degenerative arthritis, She is hoping to have the hip surgery as soon as possible. Comes to the office in a wheelchair as she is on able to stand and walk. [facility] Medical History (Updated 03/15/24 @ 16:38 by Ramon Avila MD) COPD (chronic obstructive pulmonary disease) Smoker Acute exacerbation of chronic obstructive pulmonary disease Substance abuse Lumbar spondylosis Trochanteric bursitis of right hip Exercise hypoxemia Nicotine dependence, cigarettes, uncomplicated Dyslipidemia Obesity History of sepsis Urinary frequency Anxiety associated with depression Bilateral hip pain Lower back pain Somatic dysfunction of left sacroiliac joint Surgical History History of section Family History Father Substance use disorder Mother Substance use disorder Mental health disorder Maternal Grandmother Substance use disorder Mental health disorder Social History Household Members: Spouse Housing: House Do you presently have visiting nurse or other home services: No Alcohol intake: current Alcohol intake frequency: does not drink Patient Tobacco Use Status: Current everyday Tobacco user Tobacco use type: Cigarette Cigarette Packs Per Day: 0.5 Cigarettes Per Day: 3 Years Smoked: 30 e-Cigarette/Vaping Use: Never Used Second Hand Smoke Exposure: No Substance Use Type: Heroin service: No Current occupational status: employed Current occupation: [employer] Cognitive needs: No Hearing needs: No Vision needs: No Review of Systems Const All systems reviewed & are unremarkable except as noted in HPI and below Eyes Reports no additional complaints ENT Reports no additional complaints Card Denies chest pain, Denies irregular heart rhythm and Reports dyspnea on exertion Resp Reports as per HPI, Reports dyspnea on exertion and Denies wheezing GI Reports no additional complaints Reports no additional complaints Musc Reports back pain, Reports myalgias and Reports arthralgias (Painful right hip and has difficulty in standing and walking) Skin/Breast Reports system reviewed and no additional complaints, except as documented Neuro Reports no additional complaints Psych Reports anxiety Endo Reports no additional complaints Aller/Immun Denies wheezing Physical Exam Vital Signs: Last Vital Signs Pulse 112 H 03/15/24 15:35 BP 130/102 H 03/15/24 15:35 Pulse Ox 94 03/15/24 15:35 Oxygen Delivery Method Room Air 03/15/24 15:35 Const General: comfortable, no acute distress, alert and awake Orientation/consciousness: patient oriented x3 HEENT Head: Yes normal to inspection General nose exam: No nasal polyps present and No nasal discharge present Face and sinus: Yes sinuses nontender Mouth: oropharynx normal Throat: Yes posterior oropharynx normal Eyes General: appearance normal, both eyes and all related structures Neck Neck: Yes normal visual inspection, Yes no lymphadenopathy, Yes trachea midline and Yes no JVD Thyroid: Thyroid normal Chest Chest palpation & inspection: normal inspection of the chest, normal palpation of entire chest wall and no tenderness Resp Other: PERCUSSION NOTE IS RESONANT, BREATH SOUNDS ARE DISTANT BUT EQUAL ON BOTH SIDES. NO WHEEZES RHONCHI OR CREPITATIONS ARE HEARD . Cardio Palpation: normal PMI Rate: regular rate Rhythm: regular rhythm Heart sounds: no gallops and no murmurs Peripheral pulses: Peripheral pulses 2+ throughout GI Palpation (GI): Soft to palpation, nontender, No hepatosplenomegaly present and no masses Auscultation: normal bowel sounds Back/Spine/Pelvis Thoracic/Lumbar Spine: thoracic and lumbar spine normal to inspection Skin General skin exam: no rashes or lesions noted Neuro General: patient oriented x3 and no focal motor deficits Cranial nerves: Yes CN's II-XII intact bilaterally Extrem General: No normal to inspection (Patient is in wheelchair and not able to stand or walk due to severe pain. ), Yes no clubbing, cyanosis or edema and Yes no calf tenderness Psych Appearance: grossly normal and well kempt Speech and movement: Normal speech and movement present Results Reviewed Results Reviewed: SPIROMETRY TEST PERFORMED IN THE OFFICE. FVC 54%, FEV1 37%, FEF 25-75 IS 17% C/W VERY SEVERE OBSTRUCTIVE AIRWAY DISORDER. Assessment & Plan Assessment & Plan (1) Smoker: Comment: THIS PATIENT HAS LIFELONG HISTORY OF SMOKING, UP TO 2 PACKS A DAY. CURRENTLY BEFORE HOSPITALIZATION SHE HAD CUT DOWN TO 1 PACK A DAY. NOW IN THE REHAB PLACE SHE HAS REDUCED CIGARETTES TO 5 A DAY. Code(s): F17.200 - Nicotine dependence, unspecified, uncomplicated Category: Social Hx Plan: WITH THE FINDING OF SEVERE COPD SHE IS ADVISE THAT SHE NEEDS TO QUIT COMPLETELY, SHE PROBLEM IS THAT SHE WILL DO HER BEST. (2) Exercise hypoxemia: Comment: PREVIOUSLY SHE IS KNOWN TO HAVE EXERCISE INDUCED HYPOXEMIA AND WAS STARTED ON OXYGEN, WHEN I SAW HER LAST TIME IN EARLY 2022. HOWEVER AFTERWARDS SHE HAD STOPPED USING THE OXYGEN. NOW AT THE TIME OF ADMISSION IN THE HOSPITAL SHE WAS HYPOXEMIC AND NEEDED O2 SUPPLEMENTATION. AFTER TREATMENT IT IS NOTED IN THE HOSPITAL RECORD THAT SHE DID NOT REQUIRE OXYGEN. NOW BECAUSE OF HER HIP PAIN SHE IS MOBILIZING VIA WHEELCHAIR AND IS NOT ABLE TO WALK. Code(s): R09.02 - Hypoxemia Category: Medical Plan: I THINK SHE SHOULD HAVE PERIODIC CHECKING OF HER O2 SAT. ALSO SHE SHOULD HAVE O2 SAT CHECKED WHEN SHE IS SLEEPING AT NIGHT, THIS CAN BE DONE BY NURSING STAFF AT THE REHAB FACILITY. IF HER O2 SAT IS BELOW 89%, MOST OF THE TIME SHE SHOULD USE O2 2 L/MINUTE AT NIGHTTIME. (3) COPD (chronic obstructive pulmonary disease): Comment: THIS PATIENT IS A KNOWN CASE OF ADVANCED CHRONIC OBSTRUCTIVE PULMONARY DISEASE. DEFINITELY RELATED TO HER LIFELONG SMOKING. RECENTLY TREATED IN THE HOSPITAL FOR ACUTE EXACERBATION. HE IS NOW IN THE REHAB FACILITY. THE SPIROMETRY IN THE OFFICE IS CONSISTENT WITH VERY SEVERE OBSTRUCTIVE AIRWAY DISORDER. Code(s): J44.9 - Chronic obstructive pulmonary disease, unspecified Category: Medical Plan: I SHOWED THE RESULTS TO THE PATIENT AND TOLD HER ABOUT THE SEVERITY. OF COPD .SHE HAS TO QUIT SMOKING CONTINUE TO USE BREATHS TREE INHALER 2 PUFFS B.I.D.. USE IPRATROPIUM-ALBUTEROL SOLUTION IN THE NEBULIZER Q 4-6 HOURS P.R.N. FOR ACUTE DISTRESS. Plan * FAR PULMONARY CLEARANCE IS CONCERNED, . I HAVE THE FOLLOWING COMMENTS SHE IS A VERY POOR SURGICAL RISK, FOR ANY MAJOR SURGERY AND PROLONGED GENERAL ANESTHESIA. HOWEVER THERE IS NO ACUTE CONTRAINDICATION. SHE IS ADVISED TO QUIT SMOKING COMPLETELY BEFORE SURGERY. SHE WOULD NEED TO BE MONITORED VERY CLOSELY DURING AND AFTER SURGERY FOR IMPENDING RESPIRATORY FAILURE. SHE MAY NEED OXYGEN SUPPLEMENTATION KEEP O2 SAT ABOVE 90%. WHILE ON OXYGEN SHE WOULD ALSO NEED TO BE MONITORED FOR ANY CO2 RETENTION. IF NOTED TO HAVE SIGNIFICANT CO2 RETENTION SHE MAY NEED NONINVASIVE VENTILATORY SUPPORT FOR SOMETIME. I HAVE EXPLAINED ALL THIS TO THE PATIENT. I HAVE ADVISED HER TO CALL AND MAKE AN APPOINTMENT TO BE CHECKED AFTER SURGERY AND DISCHARGE FROM THE HOSPITAL . Coding Level of Care Code Est Pt Level 4 (20944) Diagnoses Smoker F17.200 Exercise hypoxemia R09.02 COPD (chronic obstructive pulmonary disease) J44.9
== END 2024-03-15 16:10 ==
PROVIDERS: PCP Nurse Practitioner Family; Visit Provider Internal Medicine
DX: F17.200 Nicotine dependence, unspecified, uncomplicated (principal); R09.02 Hypoxemia; J44.9 Chronic obstructive pulmonary disease, unspecified
CPT/HCPCS: 99214

== ENCOUNTER → 2024-03-21 07:42 | Outpatient (REF) | payer OTHER, SELFPAY ==
--- NOTE | ~2024-03-21 | NM_ITS ---
Lexiscan Myocardial perfusion study Indication: Preoperative cardiovascular stratification Technique: The patient was brought in for a Lexiscan perfusion study on 03/21/2024 and was injected 0.4 mg of Lexiscan intravenously. Within a minute of this injection 32 mCi of sestamibi was given intravenously. Images were obtained using the SPECT gamma camera interlaced with the gating device. Images were obtained in supine position. Resting perfusion study was performed on 03/22/2024. Patient was administered 32 mCi of sestamibi intravenously at rest. Images were then obtained in supine position. Images obtained without without CT attenuation. Total DLP 134 mGy-cm. Images were processed with the software and compared side to side in short axis, horizontal long axis and vertical long axis views. Findings: The stress perfusion study showed nonattenuated images show normal uptake ordered images in all segments of the LV myocardium. Attenuated corrected images show mildly reduced uptake in the septum as well as the apex of the LV myocardium.. The gated study shows normal LV systolic function with calculated LVEF of 58%. LV cavity is normal in size. The gated study shows normal systolic wall thickening and contraction of segments. Resting study shows no change in perfusion pattern compared to stress perfusion study. Gating at rest reveals normal systolic wall motion with ejection fraction at greater than 55%. The findings are consistent with normal myocardial perfusion. NM/NM sunil perf SPECT rest & str Impression: 1. Myocardial perfusion imaging study shows normal myocardial perfusion 2. Gated LVEF is 58% 3. Transient ischemic dilatation not present Nondiagnostic changes on EKG. Electronically signed by: Rigoberto Mcgovern MD 03/23/2024 08:16 AM [facility]
--- NOTE | 2024-03-21 07:51 | CA_ITS ---
Acquisition Time: 2024-03-21 08:06:05 Total Exercise Time: 00:02:00 Test Indications: Pre-Op Evaluation Medications: SEE H Protocol: LEXISCAN Max HR: 111 BPM 68% of Pred: 162 BPM Max BP: 114/084 mmHG Max Work Load: 1.0 METS Pharmacological stress test with Lexiscan while sitting and kicking her leg, without anginal symptoms, without arrythmia, with normotensive response to injection, with nondiagnostic EKG for ischemia. In recovery she reported lightheadedness that was treated with Aminophylline 75mg IVP to reverse Lexiscan with resolution of symptom. Nuclear images pending. Test reviewed with Dr Mcgovern. Referred By: Rigoberto Mcgovern Overread By: JOSE AVITIA
== END ==
LOC: HO.CARD 07:42
PROVIDERS: PCP Nurse Practitioner Family; Visit Provider Internal Medicine Cardiovascular Disease
DX: Z01.810 Encounter for preprocedural cardiovascular examination (principal)
CPT/HCPCS: 78452; 93017; A9500; J0280; J2785

== ENCOUNTER → 2024-03-21 07:51 | Outpatient (BNV) | payer OTHER, SELFPAY | PROVIDERS: PCP Nurse Practitioner Family; Visit Provider Nurse Practitioner Family | DX: R42 Dizziness and giddiness (principal) | CPT/HCPCS: 78452; 93016; 93018 ==

== ENCOUNTER 2024-03-23 07:43 | Outpatient (AMB) | payer OTHER, SELFPAY ==
--- NOTE | 2024-03-23 07:34 | A.OFFVIS_ITS ---
Intake Visit Reasons: pre op Allergies omeprazole [From PRILOSEC] Allergy (Severe, Verified 03/15/24 15:43) ANAPHYLAXIS lansoprazole [Prevacid] Allergy (Unknown, Verified 03/15/24 15:43) anaphylaxis cyclobenzaprine [From Flexeril] Allergy (Verified 03/15/24 15:43) Rash HPI HPI pre op: Details: History of Present Illness The patient is a 58-year-old female presenting for a preoperative evaluation related to an upcoming total hip arthroplasty. She has a history of advanced osteoarthritis of the hip, which has necessitated surgical intervention. The patient reports experiencing significant pain. She has been under the care of both cardiology and pulmonology. The most recent pulmonology evaluation on March 15 indicated, that she has a significant surgical risk if undergoing major surgery with prolonged general anesthesia. Despite this, there is no acute contraindication noted for her surgery. The patient is advised to cease smoking completely prior to surgery to mitigate respiratory risks. A recent stress test conducted by cardiology is pending a final note, which is necessary for surgical clearance. Review of Systems - Constitutional: Denies recent fevers or chills. - Cardiovascular: Denies chest pain. - Respiratory: Denies increased shortness of breath. - Lymphatic: Denies lymphadenopathy. Plan - Coordinate with the long term lab department to obtain necessary laboratory evaluations. - Await final cardiology report to confirm stress test results for surgical clearance. - Reinforce smoking cessation plan and ensure pulmonary support strategies are in place preoperatively to maintain oxygen saturation above 90%. - Monitor closely for signs of impending respiratory failure during and post- procedure, with provisions for oxygen supplementation as necessary. Patient was informed and verbally consented to the use of an ambient scribe for clinic note documentation during this visit. Discussion Notes I discussed with the patient our comprehensive plan for her scheduled total hip arthroplasty. Despite her poor surgical risk profile, no acute contraindications were identified during her pulmonology assessment (please see note). I emphasized the importance of smoking cessation prior to surgery and explained the potential risks, notably impending respiratory failure involving prolonged anesthesia. I assured her of continuous monitoring strategies and anticipated respiratory support measures. Additionally, we discussed that her final surgical clearance hinges upon the forthcoming results of her cardiology stress test. I will proceed with the necessary laboratory tests and coordinate closely with her medical team to ensure all parameters are met for her surgery. Patient Instructions - Quit smoking completely before surgery to enhance recovery and reduce complications. - Follow-up with the cardiology and pulmonology teams as instructed. - Attend all preoperative lab appointments at the long term. - Report any new symptoms such as fever, chills, chest pain, or increased sh ortness of breath immediately. [facility] Medical History (Updated 03/23/24 @ 07:22 by Ezra Zuñiga, [facility]) COPD (chronic obstructive pulmonary disease) Smoker Acute exacerbation of chronic obstructive pulmonary disease Substance abuse Lumbar spondylosis Trochanteric bursitis of right hip Exercise hypoxemia Nicotine dependence, cigarettes, uncomplicated Dyslipidemia Obesity History of sepsis Urinary frequency Anxiety associated with depression Bilateral hip pain Lower back pain Somatic dysfunction of left sacroiliac joint Surgical History History of section Family History Father Substance use disorder Mother Substance use disorder Mental health disorder Maternal Grandmother Substance use disorder Mental health disorder Social History Household Members: Spouse Housing: House Do you presently have visiting nurse or other home services: No Alcohol intake: current Alcohol intake frequency: does not drink Patient Tobacco Use Status: Current everyday Tobacco user Tobacco use type: Cigarette Cigarette Packs Per Day: 0.5 Cigarettes Per Day: 3 Years Smoked: 30 e-Cigarette/Vaping Use: Never Used Second Hand Smoke Exposure: No Substance Use Type: Heroin service: No Current occupational status: employed Current occupation: [employer] Cognitive needs: No Hearing needs: No Vision needs: No Telehealth Telehealth Telehealth Platform: [facility] Location of provider rendering services: practice address Location of patient: address on file Patient Identification confirmed using: Name, : Yes Telehealth method: video Patient verbally consented to treatment: Yes Patient verbally consented to billing insurance company: Yes Patient informed of any privacy concerns related to visit: Yes Minutes spent on Phone/Video with Pt.: 12 Assessment & Plan Assessment & Plan (1) Pre-op evaluation: Code(s): Z01.818 - Encounter for other preprocedural examination Category: Medical Plan . Orders: Orders Comprehensive Met. Panel Today Z01.818 - Encounter for other preprocedural examination TSH reflex Free T4 Today Z01.818 - Encounter for other preprocedural examination Prothrombin Time INR Today Z01.818 - Encounter for other preprocedural examination Complete Blood Count Auto Diff Today Z01.818 - Encounter for other preprocedural examination Partial Thromboplastin Time Today Z01.818 - Encounter for other preprocedural examination Coding Level of Care Code Est Pt Prev Care 40-64y(94065) Diagnoses Pre-op evaluation Z01.818
== END 2024-03-23 07:43 | disposition home or self-care (01) ==
LOC: HO.HMCC 07:43
PROVIDERS: PCP Nurse Practitioner Family; Visit Provider Nurse Practitioner Family
DX: Z01.818 Encounter for other preprocedural examination (principal)

== ENCOUNTER → 2024-03-23 07:43 | Outpatient (BNVA) | payer OTHER, SELFPAY | PROVIDERS: PCP Nurse Practitioner Family; Visit Provider Nurse Practitioner Family | DX: Z01.818 Encounter for other preprocedural examination (principal) ==

== ENCOUNTER → 2024-04-04 09:15 | Outpatient (BNVA) | payer OTHER, SELFPAY | PROVIDERS: PCP Nurse Practitioner Family | DX: Z01.818 Encounter for other preprocedural examination (principal) ==

== ENCOUNTER 2024-04-27 13:47 | Outpatient (AMB) | payer OTHER, SELFPAY ==
--- NOTE | 2024-04-27 13:52 | MHC.OFFVIS ---
Vital Signs 04/27/24 13:56 Height 5 ft Weight 192 lb BMI 37.5 Intake Visit Reasons: Pre-Op: R MAMADOU w/NE 05/02/24 Intake Note: Rody is a 58 year old female who presents today for a preoperative RT MAMADOU on 05/02/24 NE. Pain management agreement reviewed and signed. Allergies lansoprazole [Prevacid] Allergy (Severe, Verified 04/27/24 13:58) anaphylaxis omeprazole [From PRILOSEC] Allergy (Severe, Verified 04/27/24 13:58) ANAPHYLAXIS cyclobenzaprine [From Flexeril] Allergy (Intermediate, Verified 04/27/24 13:58) Rash Medication List - Last Reconciled 04/27/24 by Sree Gaines PA-C baclofen 5 mg PO TID Breztri Aerosphere 160-9-4.8 mcg/actuation ([id number]) 2 inhalations inhalation BID NS celecoxib 200 mg PO BID clonidine HCl 0.1 mg PO BID empagliflozin (Jardiance) 10 mg PO QAM furosemide 20 mg See Protocol PO QAM gabapentin 100 mg PO TID gabapentin 600 mg PO TID ipratropium-albuterol 0.5 mg-3 mg(2.5 mg base)/3 mL 3 mL inhalation RQ4H WHILE AWAKE PRN tramadol 25 mg (1/2 x 50 mg) PO Q6H PRN venlafaxine ER 150 mg PO BID walker Folding Front wheeled walker duration 99 days HPI Comments Details: Ms Xiong presents to the office today for preop visit. She is scheduled for right total hip arthroplasty with Dr. Sweeney. She continues to have ongoing pain and difficulty with ambulation in the right hip, which is affecting her quality of life; therefore, she has elected to move forward with surgery. [facility] Medical History (Updated 04/11/24 @ 13:08 by Ruthy Mckeon RN) Resides in custodial facility Heart failure with preserved ejection fraction Substance abuse Acute exacerbation of chronic obstructive pulmonary disease Lumbar spondylosis Trochanteric bursitis of right hip Obesity Nicotine dependence, cigarettes, uncomplicated History of sepsis Urinary frequency COPD (chronic obstructive pulmonary disease) Exercise hypoxemia Smoker Bilateral hip pain Dyslipidemia Lower back pain Anxiety associated with depression Somatic dysfunction of left sacroiliac joint Surgical History History of section Family History Father Substance use disorder Mother Substance use disorder Mental health disorder Maternal Grandmother Substance use disorder Mental health disorder Social History (Updated 04/11/24 @ 12:19 by Ruthy Mckeon RN) Household Members: Spouse Housing: House Housing Other:: currently @ [facility] for rehab Are you a primary neonatal intensive care unit nurse to a significant other at home: No Do you presently have visiting nurse or other home services: Yes (as above noted) Alcohol intake: current Alcohol intake frequency: does not drink Patient Tobacco Use Status: Current everyday Tobacco user Tobacco use type: Cigarette Cigarette Packs Per Day: 0.5 Cigarettes Per Day: 6 Years Smoked: 30 e-Cigarette/Vaping Use: Never Used Second Hand Smoke Exposure: No Substance Use Type: Crack/Cocaine service: No Current occupational status: employed Current occupation: [employer] Cognitive needs: No Hearing needs: No Vision needs: No Review of Systems Const All systems reviewed & are unremarkable except as noted in HPI and below Physical Exam Vital Signs: BMI result Body Mass Index 37.5 Const General: cooperative, healthy appearing, comfortable, no acute distress, well developed and alert Orientation/consciousness: patient oriented x3 HEENT Head: Yes normal to inspection, Yes normocephalic and Yes atraumatic Eyes General: appearance normal, both eyes and all related structures Neck Neck: Yes normal visual inspection and Yes no lymphadenopathy Resp Effort & Inspection: normal respiratory effort and able to speak in complete sentences Cardio Rate: regular rate Peripheral pulses: Peripheral pulses 2+ throughout GI Inspection: Yes normal to inspection Palpation (GI): Soft to palpation Skin General skin exam: no rashes or lesions noted Neuro General: patient oriented x3 Extrem Other: Right hip skin intact, no open wounds or abrasions. Wheelchair-bound with painful hip range of motion. Psych Appearance: grossly normal Mental Status: mental status grossly normal Results Reviewed Results Reviewed: X-rays of the right hip obtained in the office today for surgical planning. Assessment & Plan Assessment & Plan (1) Avascular necrosis of bone of right hip: Code(s): M87.051 - Idiopathic aseptic necrosis of right femur Category: Medical Plan: I discussed in detail the procedure and what to expect pre and post operatively. We discussed the risks, benefits and alternatives to the surgery as well as the rehabilitation course. The risks; which include, but are not limited to infection, bleeding, nerve injury, ongoing pain, swelling, and stiffness, perioperative risk of injury to bones and soft tissues, and blood clots. I?ve answered all questions and with their understanding they have consented to move forward with Right total hip arthroplasty with Dr. Patel [phone] Coding Level of Care Code Est Pt Level 3 (93219) Complex EM visit Add On G2211 Diagnoses Avascular necrosis of bone of right hip M87.051
[2024-04-27 13:56] VITALS: BMI 37.5
== END 2024-04-27 14:18 | disposition home or self-care (01) ==
PROVIDERS: PCP Nurse Practitioner Family; Visit Provider Physician Assistant
DX: M87.051 Idiopathic aseptic necrosis of right femur (principal)
CPT/HCPCS: 99213; G2211

== ENCOUNTER 2024-05-02 06:02 | Day surgery (SDC) | payer OTHER, SELFPAY ==
[2024-04-11 12:08] VITALS: BP 110/58; PULSE 92; RESP 20; O2SAT 95; BMI 37.5
--- NOTE | 2024-04-11 12:15 | HO.ANESPROP2 ---
Documented by User: Erika Gates NP 04/11/24 12:43 HPI - Anesthesia Eval Consult details Narrative: 58yo F for Right Hip Total Replacement, 05/02/23 Currently [place] [facility] recent illness No CP/SOB with physcial therapy Medically optimized per PCP Cardiac optimized. [place] [facility] [place] Pulmo high risk / poor surgical candidate but no acute contraindication. Discussed possible spinal. HFpEF: No edema COPD/Smoker: ~1/2ppd. Scheduled inhalers, no rescue inhaler. SOB exacerbated by pain Polysubstance hx: +buprenorphine utox, but not on med list. Pt states was going to suboxone clinic, but has not had any since [facility] BP low at PAT - will hold lasix and clonidine DOS Anesthesia Pre-Procedure Meds Is the patient on any of the following meds?: SGLT2 Inhib PMFSH Active Problems Active Problems: All Active Problems Pre-op evaluation (Acute) (HFpEF) heart failure with preserved ejection fraction (Acute) Preoperative cardiovascular examination (Acute) Avascular necrosis of bone of right hip (Acute) Scoliosis associated with other condition (Acute) Degenerative arthritis of hip (Acute) OAB (overactive bladder) (Acute) Bladder wall thickening (Acute) Microscopic hematuria (Acute) Vitamin D deficiency (Acute) Urinary incontinence with continuous leakage (Acute) Elevated LFTs (Acute) Low back pain radiating to lower extremity (Acute) COPD (chronic obstructive pulmonary disease) (Chronic) Acute exacerbation of chronic obstructive pulmonary disease (Acute) Lumbar spondylosis (Acute) Trochanteric bursitis of right hip (Acute) Exercise hypoxemia (Acute) Nicotine dependence, cigarettes, uncomplicated (Acute) Obesity (Acute) Urinary frequency (Acute) Bilateral hip pain (Acute) Past Medical History Medical History Resides in jail facility Heart failure with preserved ejection fraction Substance abuse Acute exacerbation of chronic obstructive pulmonary disease Lumbar spondylosis Trochanteric bursitis of right hip Obesity Nicotine dependence, cigarettes, uncomplicated History of sepsis Urinary frequency COPD (chronic obstructive pulmonary disease) Exercise hypoxemia Smoker Bilateral hip pain Dyslipidemia Lower back pain Anxiety associated with depression Somatic dysfunction of left sacroiliac joint Family History Family History Father Substance use disorder Mother Substance use disorder Mental health disorder Maternal Grandmother Substance use disorder Mental health disorder Surgical History Surgical History History of section Social History Social History Household Members: Spouse Housing: House Housing Other:: currently @ [facility] for rehab Are you a primary direct support professional caregiver to a significant other at home: No Do you presently have visiting nurse or other home services: Yes (as above noted) Alcohol intake: current Alcohol intake frequency: does not drink Patient Tobacco Use Status: Current everyday Tobacco user Tobacco use type: Cigarette Cigarette Packs Per Day: 0.5 Cigarettes Per Day: 6 Years Smoked: 30 e-Cigarette/Vaping Use: Never Used Second Hand Smoke Exposure: No Use of substances other than those prescribed or required for medical reasons: No Substance Use Type: Crack/Cocaine Substance Use Type Other:: last cocaine use 20 years ago Have you been hit, kicked, punched, or otherwise hurt by someone within the past year? If so, by whom?: No Spiritual Healthcare Practices: none Hinduism Healthcare Practices: none Cultural Healthcare Practices: none Are you DNR?: No Advance Directives: No Advance Directives Information Provided: Yes Advance Directives on File: No Eating poorly because of decreased appetite: No Nutrition Risks: No Nutritional Risk FDLMP: n/a Poor oral hygiene: No (some extracted teeth) service: No Current occupational status: employed Current occupation: [employer] Cognitive needs: No Hearing needs: No Vision needs: No Meds Allergies Allergy/AdvReac Type Severity Reaction Status Date / Time lansoprazole [Prevacid] Allergy Severe anaphylaxis Verified 04/27/24 13:58 omeprazole [From PRILOSEC] Allergy Severe ANAPHYLAXIS Verified 04/27/24 13:58 cyclobenzaprine Allergy Intermediate Rash Verified 04/27/24 13:58 [From Flexeril] Home Medications ?Medication ?Instructions ?Recorded ?Confirmed ?Last Taken ?Type celecoxib 200 mg capsule 200 mg PO BID 02/16/24 04/27/24 04/25/24 History baclofen 5 mg tablet 5 mg PO TID 03/06/24 04/27/24 05/01/24 History gabapentin 600 mg tablet 600 mg PO TID 03/15/24 04/27/24 05/01/24 History venlafaxine 150 mg 150 mg PO BID 03/15/24 04/27/24 05/01/24 History capsule,extended release 24 hr empagliflozin 10 mg tablet 10 mg PO QAM 04/11/24 04/27/24 04/28/24 History (Jardiance) furosemide 20 mg tablet 20 mg PO QAM 04/11/24 04/27/24 05/01/24 History gabapentin 100 mg capsule 100 mg PO TID 04/11/24 04/27/24 05/01/24 History Exam Pertinent Lab Results Pertinent Lab Results: Laboratory Tests 02/20/24 12:16 WBC 8.2 Hgb 14.2 Hct 45.5 Plt Count 236 Sodium 145 Potassium 3.3 Chloride 102 Carbon Dioxide 32 H BUN 16 Creatinine 0.54 Narrative Narrative: ECHO 02/2024 Conclusions: - 1. Low normal LV ejection fraction of 50-55% with impaired relaxation filling pattern 2. Normal cardiac valvular Dopplers 3. Mildly elevated right ventricular systolic pressure but significantly elevated right atrial pressures 4. No gross pericardial effusion EKG 03/2024 Details: EKG shows sinus tachycardia with poor R-wave progression most likely lead placement NM sunil perf SPECT rest & str 03/2024 Impression: 1. Myocardial perfusion imaging study shows normal myocardial perfusion 2. Gated LVEF is 58% 3. Transient ischemic dilatation not present Nondiagnostic changes on EKG Airway Mallampati Class: III TM Dist: >3cm Neck ROM: Full Loose/Missing/Broken Teeth: Yes (Molars) Heart: RRR Lungs: CTAB, dim bases Assessment and Plan Assessment Anesthesia Assessment: Anesthesia Plan Discussed, Smoking Cess. Discussed and PAT Visit Documented by User: Ashwini Moody MD 05/02/24 08:56 PMFSH Past Medical History Medical History Resides in jail facility Heart failure with preserved ejection fraction Substance abuse Acute exacerbation of chronic obstructive pulmonary disease Lumbar spondylosis Trochanteric bursitis of right hip Obesity Nicotine dependence, cigarettes, uncomplicated History of sepsis Urinary frequency COPD (chronic obstructive pulmonary disease) Exercise hypoxemia Smoker Bilateral hip pain Dyslipidemia Lower back pain Anxiety associated with depression Somatic dysfunction of left sacroiliac joint Family History Family History Father Substance use disorder Mother Substance use disorder Mental health disorder Maternal Grandmother Substance use disorder Mental health disorder Family history of problems with anesthesia: No Surgical History Surgical History History of section History of Problems with Anesthesia: No Social History Social History Household Members: Spouse Housing: House Housing Other:: currently @ [facility] for rehab Are you a primary direct support professional caregiver to a significant other at home: No Do you presently have visiting nurse or other home services: Yes (as above noted) Alcohol intake: current Alcohol intake frequency: does not drink Patient Tobacco Use Status: Current everyday Tobacco user Tobacco use type: Cigarette Cigarette Packs Per Day: 0.5 Cigarettes Per Day: 6 Years Smoked: 30 e-Cigarette/Vaping Use: Never Used Second Hand Smoke Exposure: No Use of substances other than those prescribed or required for medical reasons: No Substance Use Type: Crack/Cocaine Substance Use Type Other:: last cocaine use 20 years ago Have you been hit, kicked, punched, or otherwise hurt by someone within the past year? If so, by whom?: No Spiritual Healthcare Practices: none Hinduism Healthcare Practices: none Cultural Healthcare Practices: none Are you DNR?: No Advance Directives: No Advance Directives Information Provided: Yes Advance Directives on File: No Eating poorly because of decreased appetite: No Nutrition Risks: No Nutritional Risk FDLMP: n/a Poor oral hygiene: No (some extracted teeth) service: No Current occupational status: employed Current occupation: [employer] Cognitive needs: No Hearing needs: No Vision needs: No Meds Allergies Allergy/AdvReac Type Severity Reaction Status Date / Time lansoprazole [Prevacid] Allergy Severe anaphylaxis Verified 04/27/24 13:58 omeprazole [From PRILOSEC] Allergy Severe ANAPHYLAXIS Verified 04/27/24 13:58 cyclobenzaprine Allergy Intermediate Rash Verified 04/27/24 13:58 [From Flexeri] Home Medications ?Medication ?Instructions ?Recorded ?Confirmed ?Last Taken ?Type celecoxib 200 mg capsule 200 mg PO BID 02/16/24 04/27/24 04/25/24 History baclofen 5 mg tablet 5 mg PO TID 03/06/24 04/27/24 05/01/24 History gabapentin 600 mg tablet 600 mg PO TID 03/15/24 04/27/24 05/01/24 History venlafaxine 150 mg 150 mg PO BID 03/15/24 04/27/24 05/01/24 History capsule,extended release 24 hr empagliflozin 10 mg tablet 10 mg PO QAM 04/11/24 04/27/24 04/28/24 History (Jardiance) furosemide 20 mg tablet 20 mg PO QAM 04/11/24 04/27/24 05/01/24 History gabapentin 100 mg capsule 100 mg PO TID 04/11/24 04/27/24 05/01/24 History Assessment and Plan Final Anesthetic Review Family History of Problems with Anesthesia: No History of Problems with Anesthesia: No NPO: Yes ASA Class: III Final Preanesthetic Review: No Changes in Pt Med Stat, Meds/Allgs Chart Reviewed, Consent Obtained/Reviewed and Anes Risks/Benef Reviewed Patient Risk: Intermediate Procedure Risk: Intermediate Anesthetic Plan Anesthetic Plan: GA Disposition: Standard PACU
[2024-04-11 13:58] LABS: Estimated Average Glucose 120 mg/dL; Hemoglobin A1C 149.9525 umol/L; Hemoglobin A1c % 5.8 % (<6.0); Total Hemoglobin (HGBA1C) 3774.4416 umol/L
[2024-04-11 14:47] LABS: MRSA Nasal PCR POSITIVE (Negative); SA Nasal PCR POSITIVE (Negative)
[2024-05-02] VITALS (21 sets, daily range): BP systolic 100–160; BP diastolic 62–108; PULSE 95–108; RESP 14–28; TEMP 36.3–36.9; O2SAT 90–100
--- NOTE | ~2024-05-02 | XR_ITS ---
EXAMINATION: XR HIP 2 OR MORE VIEWS RIGHT HISTORY: rt MAMADOU COMPARISON: Comparison is made with the prior examination dated 04/27/2024. FINDINGS: A single AP portable view of the right hip performed at 10:41 AM is submitted. The patient is status post right total hip arthroplasty. The orthopedic elements are in anatomic alignment on this single view. Postoperative changes are noted in the soft tissues. XR/XR hip RT min 2V IMPRESSION: That is post right total hip arthroplasty. Electronically signed by: Neel Calderón MD 05/02/2024 11:06 AM [facility]
--- NOTE | ~2024-05-02 | XR_ITS ---
CLINICAL HISTORY: post op 2 view pelvis Comparison: None Findings: No acute fracture or dislocation. Unremarkable right hip arthroplasty. Small amount of soft tissue emphysema in the vicinity of the right hip joint likely postoperative in nature. Correlate clinically. Mild degenerative narrowing of the superomedial aspect of the left hip joint. Mild heterotopic ossification in the vicinity of the left greater trochanter in the right buttock subcutaneous fat. Small dystrophic calcification/calcific tendinosis adjacent to the right ischial tuberosity. IMPRESSION: Unremarkable right hip arthroplasty. Small amount of soft tissue emphysema in the vicinity of the right hip joint likely postoperative in nature. Correlate clinically. This document has been electronically signed by: Denise Pedroza MD on 05/04/2024 12:59:53
[2024-05-02] MEDS: oxyCODONE HCl ER 10 MG TAB.ER.12H PO ×2 (06:30→21:02)
[2024-05-02 06:44] LABS: Amphetamine Screen Urine Not Detected (Not Detect); Barbiturates, Urine Not Detected (Not Detect); Benzodiazepines Screen Urine Not Detected (Not Detect); Buprenorphine Scr Not Detected (Not Detect); Cannabinoid Screen Urine Not Detected (Not Detect); Cocaine Screen Urine Not Detected (Not Detect); Fentanyl, urine Not Detected (Not Detect); Methadone Screen, Urine Not Detected (Not Detect); Opiate Screen Urine Not Detected (Not Detect); Oxycodone Screen Urine Not Detected (Not Detect); Phencyclidine Screen Urine Not Detected (Not Detect)
[2024-05-02] MEDS: Albuterol Sulfate (0.083%) 2.5 MG/3 ML VIAL.NEB INHALE (06:49)
[2024-05-02] MEDS: Lactated Ringers 1,000 ML 100 ML IVCONT ×2 (06:49→13:42)
--- NOTE | 2024-05-02 07:30 | MHC.SHP ---
Pre-Procedural Eval Section A - 24 Hr Update-Section A only Date of Service: 05/02/24 The patient is an INPATIENT: No Changes since office visit: No Cold of Flu in the past 2 weeks, No New Medical Problems, No Changes in Medication and No Patient answered all questions The patient has been examined within 24 hours of the surgical procedure. The History & Physical has been completed within 30 days and I have reviewed it.: Yes Section B - Complete if H&P > 30 days Chief Complaint: Idiopathic aseptic necrosis of right femur Allergies: Allergies Allergy/AdvReac Type Severity Reaction Status Date / Time lansoprazole [Prevacid] Allergy Severe anaphylaxis Verified 04/27/24 13:58 omeprazole [From PRILOSEC] Allergy Severe ANAPHYLAXIS Verified 04/27/24 13:58 cyclobenzaprine Allergy Intermediate Rash Verified 04/27/24 13:58 [From Flexeril] Plan I have reviewed the history and physical and performed a pertinent physical examination on my patient. No changes have occurred unless specified. Time Spent With Patient Time: Total time managing care of this patient today ____ minutes.
--- NOTE | 2024-05-02 09:44 | PM.OP ---
Brief Operative Note Date of Service: 05/17/24 Pre-op diagnosis: Right hip AVN Post-op diagnosis: same Procedure: Right MAMADOU Implants: Bassem Accolade 2 multi hole with 2 6.5 mm acetabular screws and 10 deg post lipped liner; Accoalde 2 #3 127 +0/32 ceramic Surgeon: Kamaljit Sweeney MD Anesthesia: GETA and local Was an Residential Care Officer used for this Procedure?: Yes Residential Care Officer: Sree Gaines Estimated blood loss (mL): 250 IV fluids (mL): 1,000 Pathology: other Condition: stable Disposition: PACU
--- NOTE | 2024-05-02 09:46 | P.OP_ITS ---
Operative Note Operative Note Date of Service: 05/02/24 Narrative: Date of Service: 05/17/24 Pre-op diagnosis: Right hip AVN Post-op diagnosis: same Procedure: Right MAMADOU Implants: Austin Trident2 multi hole with 2 6.5 mm acetabular screws and 10 deg post lipped liner; Accoalde2 #[id number] 127 +0/32 ceramic Surgeon: Kamaljit Sweeney MD Anesthesia: GETA and local Was an International Travel Consultant used for this Procedure?: Yes International Travel Consultant: Sree Gaines Estimated blood loss (mL): 250 IV fluids (mL): 1,000 Pathology: other Condition: stable Disposition: PACU Procedure in detail: Patient was brought into the operating room and placed in the right lateral decubitus position. All bony prominences were well padded and the limb was prepped and draped in standard sterile fashion. A time-out was called to identify proper site procedure proper surgeon IV antibiotics and 1 g of tranexamic acid were administered. I began by making a curvilinear incision over the posterolateral aspect of the greater trochanter. Dissection was taken down to the tensor fascia which was incised in line with the incision and a Charnley retractor was placed. Cautery was used to maintain hemostasis. The hip was internally rotated and the external rotators were identified. The vessels were cauterized and a full-thickness capsular/external rotator layer was developed starting just proximal to the piriformis. This layer was tagged and a dull Hohmann retractor was placed underneath the neck in the hip was dislocated. The head was severely atrophied and had partially been metabolized into the capsule and surrounding tissues. I made a clean up cut ~1.5 cm proximal to the lesser. I then used cautery to remove extraneous tissue, of which there was an abundance. I gradually was able to visualize the cup. The superior acetabulum was eroded but I was able to medialize with a 40 mm reamer and get a rim fit with a 48 mm cup in 25 deg of anteversion and 45 deg of incliniation. I placed two superior acetabular screws using standard AO technique. I used a multi hole up but there was only room for 2 screws in the safe zones. The construct was stable however and my lipped liner was inserted and I turned my attention to the femur. I identified the piriformis insertion and used this as a starting point for my justin cutter. The medius tendon was protected with a Hibs retractor. A Charnley awl was inserted in the canal and a curved curette used to remove the lateral bone. I irrigated copiously. I then sequentially broached in the patient's natural version to a size 3 and placed my trial implants. I used a #3/127/+0 based on my pre-operative template. I removed all instrumentation and copiously irrigated. I placed my final femoral implant and again took the hip through range of motion and was satisfied with the stability and length. The final +0 implant was impacted in place and the hip reduced. I then irrigated copiously and placed 1 g of local tranexamic acid. I performed a capsular closure with 2.0 fiberwire, Chivo's fascia with 0 Vicryl, subcuticular with 2-0 Vicryl and the skin with jarrod. Patient was placed into a sterile dressing. Patient was extubated brought to the recovery room in stable condition. There were no known complications.
--- NOTE | 2024-05-02 10:02 | PHA.MEDREC ---
Pharmacy Consult ? Medication Reconciliation Pharmacy has reviewed the medication reconciliation completed by nursing, all claims matched, called the pharmacy to double check directions and doses, Dee was able to help with all medications that patient gets.
[2024-05-02] MEDS: HYDROmorphone HCl 0.5 MG/0.5 ML SYRINGE IVPUSH ×2 (12:40→16:46)
[2024-05-02] MEDS: ceFAZolin Sodium/Dextrose,Iso 2 GM/50 ML PIGGYBACK IV (13:42)
--- NOTE | 2024-05-02 14:53 | P.DS_ITS ---
DS: Providers Provider Date of Service: 05/05/24 <SHAWNEE Hou - Last Filed: 05/05/24 13:40> Date of discharge: 05/05/24 <SHAWNEE Hou - Last Filed: 05/05/24 13:40> Primary care physician: CHU ShermanP- <Steffanie Ryan PA-C - Last Filed: 05/05/24 08:31> DS: Summary Hospital Course Hospital Course: The patient underwent a successful right total hip arthroplasty, they were transferred to PACU and then to the floor to recover. During their stay, their vitals were stable, afebrile at 97.6. Labs were unremarkable, H/H 9.7/30.9. POD 1 they were started on Lovenox for DVT ppx, they also received Physical Therapy services twice a day. Prior to discharge, their dressing was clean dry and intact, and the plan was to be discharged home with VNA services. <Steffanie Ryan PA-C - Last Filed: 05/05/24 08:31> Status at Discharge Cognitive/behavioral status at discharge: Stable for discharge <SHAWNEE Hou - Last Filed: 05/05/24 13:40> Time Attestation Discharge Coordination Time (in mins): 30 <Steffanie Ryan PA-C - Last Filed: 05/05/24 08:31> Quality: Safe Use of Opioids Does Pt have an Active Cancer Diagnosis on the Problem List?: No <Steffanie Ryan PA-C - Last Filed: 05/05/24 08:31> Quality: Stroke Does the patient have a stroke diagnosis?: No <Steffanie Ryan PA-C - Last Filed: 05/05/24 08:31> Physical Exam Vital Signs: Vital Signs: Last Vital Signs Temp 97.4 F 05/02/24 10:25 Pulse 101 H 05/02/24 14:15 Resp 14 05/02/24 14:15 BP 128/83 05/02/24 14:15 Pulse Ox 97 05/02/24 14:15 O2 Del Method CPAP 05/02/24 14:15 O2 Flow Rate 24 05/02/24 14:15 BMI result Body Mass Index 37.5 <Steffanie Campuzanokan ANTIONETTEC - Last Filed: 05/05/24 08:31> Const: General: cooperative, healthy appearing and no acute distress <Steffanie Campuzanokan ANTIONETTEC - Last Filed: 05/05/24 08:31> Resp: Effort & Inspection: normal respiratory effort and able to speak in complete sentences <Steffanie Cheung Shelby DEMETRI - Last Filed: 05/05/24 08:31> Cardio: Rate: regular rate <Steffanie Campuzanokan ANTIONETTEC - Last Filed: 05/05/24 08:31> Peripheral pulses: Peripheral pulses 2+ throughout <Steffanie Cheung Shelby DEMETRI - Last Filed: 05/05/24 08:31> GI: Palpation (GI): Soft to palpation <Steffanie Cheung Shelby ANTIONETTEC - Last Filed: 05/05/24 08:31> Skin: Lesions: no lesions <Steffanie Cheung Shelby ANTIONETTEC - Last Filed: 05/05/24 08:31> Rashes: no rashes <Steffanie Campuzanokan ANTIONETTEC - Last Filed: 05/05/24 08:31> Extrem: Other: right hip dressing is c/d/i. Able to dorsi/plantar flex. Calf is supple and nontender. Sensation intact. Pedal pulse intact. <Steffanie Cheung Shelby DEMETRI - Last Filed: 05/05/24 08:31> DS: Data Data Completed and Pending Pending studies at discharge: Pending at discharge 05/02/24 09:14 Surgical [PTH] Routine <Steffanie Cheung Shelby DEMETRI - Last Filed: 05/05/24 08:31> Labs on day of discharge: Laboratory Results - last 24 hr 05/02/24 05/02/24 06:25 06:53 Urine Opiates Screen Not Detected Ur Buprenorphine Scrn Not Detected Ur Oxycodone Screen Not Detected Urine Methadone Screen Not Detected Urine Fentanyl Screen Not Detected Ur Barbiturates Screen Not Detected Ur Phencyclidine Scrn Not Detected Ur Amphetamines Screen Not Detected U Benzodiazepines Scrn Not Detected Urine Cocaine Screen Not Detected U Marijuana (THC) Screen Not Detected Blood Type O Positive Antibody Screen NEGATIVE <Steffanie Ryan PA-C - Last Filed: 05/05/24 08:31> Discharge Plan Discharge Patient Disposition: [facility] <Steffanie Ryan PA-C - Last Filed: 05/05/24 08:31> Referrals: [facility] [Other] - 1 Week Sree Gaines PA-C [Physician Tabulating Supervisor] - 05/18/24 12:45 pm <Steffanie Ryan PA-C - Last Filed: 05/05/24 08:31> Discharge Medications: New celecoxib 200 mg Capsule 200 mg PO BID 30 Days Qty: 60 0RF acetaminophen 325 mg Tablet 650 mg PO Q6H PRN (Reason: Pain, Mild 1-3,Fever,Headache) 30 Days Qty: 240 0RF docusate sodium 100 mg Capsule 100 mg PO BID 30 Days Qty: 60 0RF oxycodone 5 mg Tablet 10 mg PO Q4H PRN (Reason: Pain, Moderate(Pain Scale 4-6)) 7 Days Qty: 42 0RF Rx Instructions: Partial Fill upon patient request. enoxaparin 40 mg/0.4 mL Syringe 40 mg subcut Q24H 42 Days Qty: 16.8 0RF Continued Breztri Aerosphere 160-9-4.8 mcg/actuation HFA aerosol inhaler 2 inh inhalation BID Qty: 32.1 1RF clonidine HCl 0.1 mg tablet 0.1 mg PO BID Qty: 180 1RF (BENY) erick Misc See Rx Instructions .MEDSUPPLY Qty: 1 0RF Rx Instructions: Folding Front wheeled walker duration 99 days ipratropium-albuterol 0.5 mg-3 mg(2.5 mg base)/3 mL Solution For Nebulization 3 ml inhalation RQ4H WHILE AWAKE PRN (Reason: shortness of breath or wheezing) Qty: 60 0RF gabapentin 100 mg capsule 100 mg PO TID Jardiance 10 mg tablet 10 mg PO DAILY Rx Instructions: prescribed for cardiac dx by Dr. Mcgovern furosemide 20 mg tablet 20 mg PO DAILY Protocol: Hold for SBP< HOLD for SBP < : 90 baclofen 5 mg tablet 5 mg PO TID gabapentin 600 mg tablet 600 mg PO TID venlafaxine 150 mg capsule,extended release 24hr 150 mg PO BID Rx Instructions: takes one pill in a.m. and one at 1400 Discontinued celecoxib 200 mg capsule 200 mg PO BID tramadol 50 mg Tablet 25 mg PO Q6H PRN (Reason: Pain, Severe (Pain Scale 7-10)) Qty: 15 0RF <Steffanie Ryan PA-C - Last Filed: 05/05/24 08:31> Discharge Orders: Discharge Order (Routine); Ordered 05/05/24 Ordered By: Juan Moctezuma <Steffanie Ryan PA-C - Last Filed: 05/05/24 08:31> Diet: Advance to usual diet <Steffanie Ryan PA-C - Last Filed: 05/05/24 08:31> Advance to usual diet <SHAWNEE Hou - Last Filed: 05/05/24 13:40> Activity on Discharge: Use cane or walker <Steffanie Ryan PA-C - Last Filed: 05/05/24 08:31> Use cane or walker <SHAWNEE Hou - Last Filed: 05/05/24 13:40> Activity Restrictions/Additional Instructions: Physical Therapy for total hip arthroplasty: posterior precautions, gait training, ROM, strength Limit stair climbing No showering, no tub bath-keep dressing clean, dry and intact No driving x6 weeks Walker for 6 weeks Continue antcoagulant x6 weeks Follow up with [facility] in 2 weeks <Steffanie Ryan PA-C - Last Filed: 05/05/24 08:31> Print Language: German <Steffanie Ryan PA-C - Last Filed: 05/05/24 08:31>
--- NOTE | 2024-05-02 14:58 | P.F2F_ITS ---
Service Date Service Date: 05/02/24 Encounter Date of encounter: 05/03/24 Reasons for Services Signs and symptoms assessed: s/p RTHA Pt. is considered homebound due to recent surgery. Unable to drive, poor balance, poor gait mechanics. Reason for physical therapy: home safety and mobility, therapeutic exercises, restore joint function, gait/transfer training and ADL training Reason for occupational therapy: home safety and mobility, therapeutic exercises, restore joint function, gait/transfer training and ADL training Homebound: Leaving the home is medically contraindicated at this time without the asist of a device and/or another person due th the listed conditions above and below. Reason homebound: unsteady gait / fall risk, leg weakness, pain with ambulation, pain with transfers, poor balance / fall risk and unable to drive Certification: Based on the above findings, I certify that this patient is confined to the home and needs intermittent halfway care, physical therapy and/or speech therapy, or continues to need occupational therapy. The patient is under my care, and I have initiated the establishment of the plan of care. The patient will be followed by a physician who will periodically review the plan of care. Time Spent With Patient Time: Total time managing care of this patient today ____ minutes.
[2024-05-02] MEDS: Gabapentin 100 MG CAPSULE PO ×2 (15:21→21:04)
[2024-05-02] MEDS: Gabapentin 600 MG TABLET PO ×2 (15:21→21:01)
[2024-05-02] MEDS: 0.9 % Sodium Chloride Flush 3 ML SYRINGE IVFLUSH ×2 (16:27→21:07)
[2024-05-02] MEDS: Baclofen 10 MG TABLET 5 MG PO ×2 (16:27→21:04)
[2024-05-02] MEDS: Acetaminophen 325 MG TABLET 650 MG PO (16:27)
[2024-05-02] MEDS: Celecoxib 200 MG CAPSULE PO (21:02)
[2024-05-02] MEDS: cloNIDine HCL 0.1 MG TABLET PO (21:02)
--- NOTE | 2024-05-02 21:03 | HO.PM.IMCN ---
History of Present Illness Data of Consult Service Date: 05/02/24 Requesting physician: Kamaljit Sweeney Primary Care Provider: Ezra Zuñiga [facility] HPI Reason for consult: medical management Patient is a 58-year-old female with a past medical history significant for HFpEF, OAB, stage I COPD, obesity, and anxiety, status post right MAMADOU today, medical consultation placed. Patient reports that she has no acute issues including chest pain, shortness of breath, abdominal pain, headache, change in vision, numbness, tingling. She has been able to urinate and has also had a bowel movement. She reports that she does not have diabetes and takes Jardiance for HFpEF. Her most recent A1c was 5.6 this month. Review of Systems Constitutional: Constitutional: Denies body ache(s), Denies chills, Denies fatigue, Denies fever(s) and Denies headache(s) Eyes: Eyes: Denies change in vision ENT: Denies headache(s), Denies nasal congestion, Denies nasal discharge and Denies sore throat Cardiovascular: Cardiovascular: Denies chest pain, Denies rapid heart rate, Denies leg edema, Denies lightheadedness and Denies dyspnea Respiratory: Respiratory: Denies chest congestion, Denies cough, Denies dyspnea and Denies wheezing Gastrointestinal: Gastrointestinal: Denies constipation, Denies diarrhea, Denies nausea and Denies vomiting Genitourinary: Genitourinary: Denies difficulty voiding and Denies dysuria Musculoskeletal: Musculoskeletal: Denies numbness and Denies tingling Integumentary/Breasts: Skin/Breast: Denies rash Neurologic: Denies confusion, Denies headache(s), Denies numbness and Denies tingling Psychiatric: Psychiatric: Denies confusion Endocrine: Endocrine: Denies fatigue Hematologic/Lymphatic: Hematologic/Lymphatic: Denies easy bleeding and Denies easy bruising Allergic/Immunologic: Allergic/Immunologic: Denies wheezing PMFSH Medical History Resides in long-term facility Heart failure with preserved ejection fraction Substance abuse Acute exacerbation of chronic obstructive pulmonary disease Lumbar spondylosis Trochanteric bursitis of right hip Obesity Nicotine dependence, cigarettes, uncomplicated History of sepsis Urinary frequency COPD (chronic obstructive pulmonary disease) Exercise hypoxemia Smoker Bilateral hip pain Dyslipidemia Lower back pain Anxiety associated with depression Somatic dysfunction of left sacroiliac joint Family History Father Substance use disorder Mother Substance use disorder Mental health disorder Maternal Grandmother Substance use disorder Mental health disorder Surgical History History of section Social History Household Members: Family Housing: House Housing Other:: currently @ [facility] for rehab Are you a primary rn wound care to a significant other at home: No Do you presently have visiting nurse or other home services: No Alcohol intake: current Alcohol intake frequency: does not drink Patient Tobacco Use Status: Current everyday Tobacco user Tobacco use type: Cigarette Cigarette Packs Per Day: 0.5 Cigarettes Per Day: 6 Years Smoked: 30 Smoked in Last 30 Days: No e-Cigarette/Vaping Use: Never Used Patient Interested in Nicotine Replacement: No Second Hand Smoke Exposure: No Use of substances other than those prescribed or required for medical reasons: No Substance Use Type: Crack/Cocaine Substance Use Type Other:: last cocaine use 20 years ago Currently Displaying Signs/Symptoms of Drug Intoxication Withdrawal: No Any prior treatment program specific to substance use: No Have you been hit, kicked, punched, or otherwise hurt by someone within the past year? If so, by whom?: No Do you feel safe in your current relationship?: No Current Relationship Is there a partner from a previous relationship who is making you feel unsafe now?: No Are you made to feel afraid or neglected: No Spiritual Healthcare Practices: none Yazidism Healthcare Practices: none Cultural Healthcare Practices: none Are you DNR?: No Advance Directives: No Advance Directives Information Provided: Yes Advance Directives on File: No Do you have a plan to hurt others: No Plan Recently lost weight without trying: No Eating poorly because of decreased appetite: No Nutrition Risks: No Nutritional Risk Patient : No FDLMP: n/a : No Poor oral hygiene: No service: No Current occupational status: employed Current occupation: [employer] Cognitive needs: No Hearing needs: No Vision needs: No Narrative: smokes 6 cigarettes/day...quitting, no etoh, no drug use Meds Allergies Allergy/AdvReac Type Severity Reaction Status Date / Time lansoprazole [Prevacid] Allergy Severe anaphylaxis Verified 04/27/24 13:58 omeprazole [From PRILOSEC] Allergy Severe ANAPHYLAXIS Verified 04/27/24 13:58 cyclobenzaprine Allergy Intermediate Rash Verified 04/27/24 13:58 [From Flexeril] Active Medications: Current Medications Acetaminophen (Acetaminophen 325 Mg Tablet) 650 mg PO Q6H PRN PRN Reason: Pain, Mild 1-3,fever,headache Last Admin: 05/02/24 16:27 Dose: 650 mg Albuterol/Ipratropium (Albuterol/Iprat 2.5/0.5mg 3 Ml Ampul.Neb) 3 ml INHALE RQ4H WHILE AWAKE PRN PRN Reason: shortness of breath or wheezing Baclofen (Baclofen 10 Mg Tablet) 5 mg PO TID [facility] Last Admin: 05/02/24 16:27 Dose: 5 mg Celecoxib (Celecoxib 200 Mg Capsule) 200 mg PO BID [facility] Clonidine HCl (Clonidine Hcl 0.1 Mg Tablet) 0.1 mg PO BID [facility]; Protocol Docusate Sodium (Docusate Sodium 100 Mg Capsule) 100 mg PO BID [facility] Enoxaparin Sodium (Enoxaparin Sodium 40 Mg/0.4 Ml Syringe) 40 mg SUBCUT Q24H [facility] Furosemide (Furosemide 20 Mg Tablet) 20 mg PO DAILY [facility]; Protocol Gabapentin (Gabapentin 100 Mg Capsule) 100 mg PO TID [facility] Last Admin: 05/02/24 15:21 Dose: 100 mg Gabapentin (Gabapentin 600 Mg Tablet) 600 mg PO TID [facility] Last Admin: 05/02/24 15:21 Dose: 600 mg Hydromorphone HCl (Hydromorphone Hcl 0.5 Mg/0.5 Ml Syringe) 0.5 mg IVPUSH Q4H PRN; Protocol PRN Reason: Pain, Severe (Pain Scale 7-10) Last Admin: 05/02/24 16:46 Dose: 0.5 mg Lactated Ringer's (Lr) 1,000 mls @ 100 mls/hr IVCONT .Q10H PER Stop: 05/03/24 08:00 Last Admin: 05/02/24 13:42 Dose: 100 mls/hr Non-Formulary Medication (Jnitolgfce-Obbirssr-Ddpcufkdvi [Breztri Aerosphere]) 2 inhalation INHALE RBID [facility] Ondansetron HCl (Ondansetron Hcl 4 Mg/2 Ml Vial) 4 mg IVPUSH Q8H PRN PRN Reason: Nausea and Vomiting Oxycodone HCl (Oxycodone Hcl Immed Release 5 Mg Tablet) 10 mg PO Q4H PRN PRN Reason: Pain, Moderate(Pain Scale 4-6) Oxycodone HCl (Oxycodone Hcl Er 10 Mg Tab.Er.12h) 10 mg PO BID [facility] Sodium Chloride (0.9 % Sodium Chloride Flush 3 Ml Syringe) 3 ml IVFLUSH QSHIFT [facility] Last Admin: 05/02/24 16:27 Dose: 3 ml Venlafaxine HCl (Venlafaxine Hcl Er 150 Mg Cap.Er.24h) 150 mg PO BID [facility] Home Medications ?Medication ?Instructions ?Recorded ?Confirmed ?Last Taken ?Type celecoxib 200 mg capsule 200 mg PO BID 02/16/24 04/27/24 04/25/24 History baclofen 5 mg tablet 5 mg PO TID 03/06/24 04/27/24 05/01/24 History gabapentin 600 mg tablet 600 mg PO TID 03/15/24 04/27/24 05/01/24 History venlafaxine 150 mg 150 mg PO BID 03/15/24 04/27/24 05/01/24 History capsule,extended release 24 hr empagliflozin 10 mg tablet 10 mg PO DAILY 04/11/24 05/02/24 04/28/24 History (Jardiance) furosemide 20 mg tablet 20 mg PO DAILY 04/11/24 05/02/24 05/01/24 History gabapentin 100 mg capsule 100 mg PO TID 04/11/24 04/27/24 05/01/24 History Physical Exam Vital Signs and Narrative: Vital Signs: Last Vital Signs Temp 97.5 F 05/02/24 19:41 Pulse 95 05/02/24 19:41 Resp 18 05/02/24 19:41 BP 100/64 05/02/24 19:41 Pulse Ox 96 05/02/24 19:41 O2 Del Method Nasal Cannula 05/02/24 19:41 O2 Flow Rate 4 05/02/24 19:41 BMI result Body Mass Index 37.5 General: AOx3, no acute distress Resp: CTA bilaterally, no wheezing CVS: S1, S2, RRR GI: +BS, NT, no distention Skin: Warm, dry Neuro: Cranial nerves II-XII grossly intact bilaterally. Motor grossly intact bilaterally Extremities: No LE edema Psych: Appropriate affect Const: General: No confusion Orientation/consciousness: No confusion Neuro: General: No confusion Results Labs Labs: Laboratory Results - last 24 hr 05/02/24 05/02/24 06:25 06:53 Urine Opiates Screen Not Detected Ur Buprenorphine Scrn Not Detected Ur Oxycodone Screen Not Detected Urine Methadone Screen Not Detected Urine Fentanyl Screen Not Detected Ur Barbiturates Screen Not Detected Ur Phencyclidine Scrn Not Detected Ur Amphetamines Screen Not Detected U Benzodiazepines Scrn Not Detected Urine Cocaine Screen Not Detected U Marijuana (THC) Screen Not Detected Blood Type O Positive Antibody Screen NEGATIVE Imaging Radiologist's Impressions: Impressions Hip X-Ray 05/02/24 10:30 IMPRESSION: That is post right total hip arthroplasty. Electronically signed by: Neel Calderón MD 05/02/2024 11:06 AM [facility] Assessment and Plan (1) S/P total right hip arthroplasty: Status: Acute Plan Patient is a 58-year-old female with a past medical history significant for HFpEF, OAB, stage I COPD, obesity, and anxiety, status post right MAMADOU today, medical consultation placed. Patient is doing well with no acute medical concerns. There was concern the patient has diabetes and needs management while in the hospital, the patient reports that she does not have diabetes and takes Jardiance for HFpEF. She had a recent A1c this month which was 5.6. S/p total right MAMADOU - plan per surgery - pain well managed HFpEF - hold Jardiance, resume after discharge Stage I COPD, no exacerbation - continue Breztri Obesity - BMI 37.5 - weight loss encouraged Anxiety - continue clonidine Tobacco use - encourage patient to continue quitting smoking Thank you for allowing me to participate in the pt's care. Signing off for now. Please contact the medical team if any questions or concerns.
[2024-05-02] MEDS: Docusate Sodium 100 MG CAPSULE PO (21:04)
[2024-05-02] MEDS: oxyCODONE HCl Immed Release 5 MG TABLET 10 MG PO (21:07)
[2024-05-03 03:43] VITALS: BP 125/79; PULSE 100; RESP 16; TEMP 36.6; O2SAT 96
[2024-05-03 07:00] VITALS: BP 106/61; PULSE 100; RESP 18; TEMP 36.4; O2SAT 98
--- NOTE | 2024-05-03 07:38 | P.PNOP_ITS ---
Subjective Subjective Date of Service: 05/03/24 Interval history: POD1 s/p RTHA Patient is resting in bed comfortably No overnight events Pain is managed No additional complaints Physical Exam Vital Signs: Vital Signs: Last Vital Signs Temp 97.5 F 05/03/24 07:00 Pulse 100 05/03/24 07:00 Resp 18 05/03/24 07:00 BP 106/61 05/03/24 07:00 Pulse Ox 98 05/03/24 07:00 O2 Del Method Nasal Cannula 05/03/24 07:00 O2 Flow Rate 2 05/03/24 07:00 BMI result Body Mass Index 37.5 Const: General: cooperative, healthy appearing and no acute distress Resp: Effort & Inspection: normal respiratory effort and able to speak in complete sentences Cardio: Rate: regular rate Peripheral pulses: Peripheral pulses 2+ throughout GI: Palpation (GI): Soft to palpation Skin: Lesions: no lesions Rashes: no rashes Extrem: Other: right hip dressing is c/d/i. Able to dorsi/plantar flex. Calf is supple and nontender. Sensation intact. Pedal pulse intact. Procedures Date of Service Date of Service: 05/03/24 Progress Note: A&P Assessment and plan (1) S/P total right hip arthroplasty: Status: Acute Plan Continue pain mgmnt Begin Lovenox for dvt ppx begin PT/OT for RTHA - Walker for 6 weeks Dispo planning-Pending PT eval, pain mgmnt, will need transportation back to [facility] Time Spent With Patient Time: Total time managing care of this patient today ____ minutes. Quality Stroke Does the patient have a stroke diagnosis?: No VTE Prior VTE?: No VTE Risk Level:: Medical - moderate - high VTE Device Contraindication: N/A - Device Ordered VTE Drug Contraindication: N/A - Med Ordered
[2024-05-03] MEDS: Furosemide 20 MG TABLET PO (08:13)
[2024-05-03] MEDS: Venlafaxine HCl ER 150 MG CAP.ER.24H PO (08:13)
[2024-05-03] MEDS: Docusate Sodium 100 MG CAPSULE PO ×2 (08:13→21:51)
[2024-05-03] MEDS: oxyCODONE HCl ER 10 MG TAB.ER.12H PO ×2 (08:13→21:51)
[2024-05-03] MEDS: cloNIDine HCL 0.1 MG TABLET PO ×2 (08:14→21:52)
[2024-05-03] MEDS: Gabapentin 100 MG CAPSULE PO ×3 (08:14→21:51)
[2024-05-03] MEDS: Baclofen 10 MG TABLET 5 MG PO ×3 (08:14→21:52)
[2024-05-03] MEDS: Enoxaparin Sodium 40 MG/0.4 ML SYRINGE SUBCUT (08:15)
[2024-05-03] MEDS: 0.9 % Sodium Chloride Flush 3 ML SYRINGE IVFLUSH (08:16)
--- NOTE | 2024-05-03 08:21 | MHC.CM.PN ---
CM met with Patient at bedside. Patient's goal is to return to [facility] ([facility] bed hold) and CM has initiated and will follow for dc planning. PCP is Dr. Ezra Zuñiga and Patient will require BLS transport at [facility].
[2024-05-03] MEDS: Gabapentin 600 MG TABLET PO ×3 (08:28→21:51)
[2024-05-03 08:31] LABS: MANUAL DIFF FLAG NO
[2024-05-03 08:38] LABS: Basophils Percent Auto 0.1 % (0-2); Eosinophils Percent Auto 0.1 % (0-4); Hematocrit 38.3 % (37.0-47.0); Hemoglobin 11.8 g/dl (12.0-16.0); Imm Gran Abs Auto 0.11 X10*3/uL (0.00-0.03); Imm Gran Pct Auto 0.8 % (0.0-0.4); Lymphocytes Absolute Auto 1.6 X10*3/uL (1.2-4.9); Lymphocytes Percent Auto 11.2 % (20-40); Mean Corpuscular HGB Conc 30.8 g/dl (31.0-35.0); Mean Corpuscular Hemoglobin 28.6 pg (27.0-33.0); Mean Platelet Volume 9.5 fL (9.4-12.3); Monocytes Absolute Auto 1.4 X10*3/uL (0.1-1.2); Monocytes Percent Auto 9.5 % (2-11); Neutrophils Absolute Auto 11.3 x10*3/uL (2.0-8.3); Neutrophils Percent Auto 78.3 % (45-73); Platelet Count 309 X10*3/uL (160-400); Red Blood Count 4.12 X10*6/uL (4.20-5.50); Red Cell Distribution Width 17.9 % (11.0-16.0); White Blood Count 14.4 X10*3/uL (4.8-10.8)
[2024-05-03] MEDS: Celecoxib 200 MG CAPSULE PO ×2 (08:40→21:52)
--- NOTE | 2024-05-03 08:57 | HO.POSTANES ---
Post Anesthesia Evaluation Post Anesthesia Evaluation Date of Service: 05/03/24 Vital Signs: Vital Signs Temp Pulse Resp BP Pulse Ox O2 Del Method O2 Flow Rate 05/03/24 07:00 97.5 F 100 18 106/61 98 Nasal Cannula 2 05/03/24 03:43 97.8 F 100 16 125/79 96 Nasal Cannula 3 05/02/24 23:55 97.5 F 108 H 16 120/76 95 Nasal Cannula 3 Anesthesia: General Endotracheal-GETA Mental Status: Awake Pain Control: Satisfactory Nausea/Vomiting: None Hydration: Adequate Anesthesia-Related Issues: No Anes. Related Issues
[2024-05-03 08:59] LABS: Anion Gap 12 (12-20); Blood Urea Nitrogen 16 mg/dL (9-16); Calcium 8.8 mg/dL (8.4-10.2); Carbon Dioxide 34 mmol/L (22-29); Chloride 103 mmol/L (96-108); Creatinine Clr Calc Pharmacy 105.5; Estimated Glomerular Filt Rate > 60; Glucose Fasting 117 mg/dL (60-99); Potassium 4.6 mmol/L (3.3-5.1); Sodium 144 mmol/L (135-145)
[2024-05-03] MEDS: Albuterol/Iprat 2.5/0.5MG 3 ML AMPUL.NEB INHALE (09:32)
[2024-05-03 09:36] VITALS: PULSE 91; RESP 16; O2SAT 94
--- NOTE | 2024-05-03 10:24 | MHC.CM.PN ---
Per [facility], [facility] is NOT covering a bed hold.
[2024-05-03] MEDS: oxyCODONE HCl Immed Release 5 MG TABLET 10 MG PO ×2 (13:41→21:55)
--- NOTE | 2024-05-03 14:57 | MHC.CM.PN ---
Per RN's request, CM met with Patient, who RN indicated was upset and crying. Patient indicated that she is not doing well financially (denied for both Disability and unemployment and no job r/t pain). Patient indicated that her receives SSI($2,000.00/month) but it is not enough to pay the bills and if she were to return home with him, he will be adamant about her getting a job right away.CM offered a referral to [facility], but Patient declined. Patient is, praying on, [facility]. From here, the goal is for STR. CM offered support that appeared to be well received and appreciated.
[2024-05-03 15:23] VITALS: BP 106/65; PULSE 100; RESP 18; TEMP 36.3; O2SAT 93
[2024-05-03 19:23] VITALS: BP 95/54; PULSE 113; RESP 19; TEMP 37.1; O2SAT 93
[2024-05-04 04:00] VITALS: BP 96/61; PULSE 104; RESP 18; TEMP 36.3; O2SAT 95
[2024-05-04 06:47] LABS: MANUAL DIFF FLAG NO
[2024-05-04 07:03] LABS: Basophils Percent Auto 0.4 % (0-2); Eosinophils Absolute Auto 0.1 X10*3/uL (0.0-0.4); Eosinophils Percent Auto 1.3 % (0-4); Hematocrit 34.4 % (37.0-47.0); Hemoglobin 10.6 g/dl (12.0-16.0); Lymphocytes Absolute Auto 2.2 X10*3/uL (1.2-4.9); Lymphocytes Percent Auto 21.8 % (20-40); Mean Corpuscular HGB Conc 30.8 g/dl (31.0-35.0); Mean Platelet Volume 9.5 fL (9.4-12.3); Monocytes Absolute Auto 1.4 X10*3/uL (0.1-1.2); Monocytes Percent Auto 14.1 % (2-11); Neutrophils Absolute Auto 6.2 x10*3/uL (2.0-8.3); Neutrophils Percent Auto 61.4 % (45-73); Platelet Count 232 X10*3/uL (160-400); Red Blood Count 3.66 X10*6/uL (4.20-5.50); Red Cell Distribution Width 17.7 % (11.0-16.0)
[2024-05-04 07:05] LABS: Anion Gap 10 (12-20); Blood Urea Nitrogen 14 mg/dL (9-16); Calcium 8.6 mg/dL (8.4-10.2); Carbon Dioxide 33 mmol/L (22-29); Chloride 104 mmol/L (96-108); Creatinine Clr Calc Pharmacy 115.6; Estimated Glomerular Filt Rate > 60; Glucose Fasting 97 mg/dL (60-99); Potassium 3.8 mmol/L (3.3-5.1); Sodium 143 mmol/L (135-145)
[2024-05-04 07:25] VITALS: BP 90/63; PULSE 102; RESP 16; TEMP 36.4; O2SAT 96
[2024-05-04] MEDS: Venlafaxine HCl ER 150 MG CAP.ER.24H PO (09:28)
[2024-05-04] MEDS: Furosemide 20 MG TABLET PO (09:28)
[2024-05-04] MEDS: Docusate Sodium 100 MG CAPSULE PO ×2 (09:28→20:13)
[2024-05-04] MEDS: Gabapentin 600 MG TABLET PO ×3 (09:28→20:11)
[2024-05-04] MEDS: oxyCODONE HCl ER 10 MG TAB.ER.12H PO ×2 (09:28→20:12)
[2024-05-04] MEDS: Gabapentin 100 MG CAPSULE PO ×3 (09:28→20:11)
[2024-05-04] MEDS: 0.9 % Sodium Chloride Flush 3 ML SYRINGE IVFLUSH (09:29)
[2024-05-04] MEDS: cloNIDine HCL 0.1 MG TABLET PO ×2 (09:29→20:13)
[2024-05-04] MEDS: oxyCODONE HCl Immed Release 5 MG TABLET 10 MG PO ×3 (09:32→20:12)
[2024-05-04] MEDS: Celecoxib 200 MG CAPSULE PO ×2 (09:34→20:13)
[2024-05-04] MEDS: Enoxaparin Sodium 40 MG/0.4 ML SYRINGE SUBCUT (09:34)
[2024-05-04] MEDS: Baclofen 10 MG TABLET 5 MG PO ×3 (10:27→20:12)
--- NOTE | 2024-05-04 11:58 | MHC.CM.PN ---
[facility] has accepted Patient pending insurance auth. CM will follow.
[2024-05-04 12:52] VITALS: BP 90/63; PULSE 102; O2SAT 84
[2024-05-04 16:00] VITALS: BP 92/64; PULSE 110; RESP 18; TEMP 36.7; O2SAT 93
[2024-05-04 20:00] VITALS: BP 115/73; PULSE 112; RESP 18; TEMP 36.8; O2SAT 96
[2024-05-04 20:28] VITALS: PULSE 114; RESP 18; O2SAT 91
[2024-05-04] MEDS: Albuterol/Iprat 2.5/0.5MG 3 ML AMPUL.NEB INHALE (20:28)
[2024-05-05 03:47] VITALS: BP 129/70; PULSE 103; RESP 18; TEMP 36.4; O2SAT 95
[2024-05-05] MEDS: oxyCODONE HCl Immed Release 5 MG TABLET 10 MG PO ×2 (06:20→12:24)
[2024-05-05 07:06] VITALS: BP 98/65; PULSE 96; RESP 17; TEMP 36.4; O2SAT 94
[2024-05-05 07:15] LABS: MANUAL DIFF FLAG NO
[2024-05-05 07:23] LABS: Basophils Percent Auto 0.2 % (0-2); Eosinophils Absolute Auto 0.2 X10*3/uL (0.0-0.4); Eosinophils Percent Auto 2.6 % (0-4); Hematocrit 30.9 % (37.0-47.0); Hemoglobin 9.7 g/dl (12.0-16.0); Imm Gran Pct Auto 1.1 % (0.0-0.4); Lymphocytes Absolute Auto 1.8 X10*3/uL (1.2-4.9); Lymphocytes Percent Auto 20.4 % (20-40); Mean Corpuscular HGB Conc 31.4 g/dl (31.0-35.0); Mean Corpuscular Volume 92.5 fL (80.0-98.0); Mean Platelet Volume 9.2 fL (9.4-12.3); Monocytes Percent Auto 11.6 % (2-11); Neutrophils Absolute Auto 5.6 x10*3/uL (2.0-8.3); Neutrophils Percent Auto 64.1 % (45-73); Platelet Count 217 X10*3/uL (160-400); Red Blood Count 3.34 X10*6/uL (4.20-5.50); Red Cell Distribution Width 17.2 % (11.0-16.0); White Blood Count 8.7 X10*3/uL (4.8-10.8)
[2024-05-05 07:47] LABS: Anion Gap 8 (12-20); Blood Urea Nitrogen 10 mg/dL (9-16); Calcium 8.4 mg/dL (8.4-10.2); Carbon Dioxide 35 mmol/L (22-29); Chloride 102 mmol/L (96-108); Creatinine Clr Calc Pharmacy 125.3; Estimated Glomerular Filt Rate > 60; Glucose Fasting 111 mg/dL (60-99); Potassium 3.5 mmol/L (3.3-5.1); Sodium 141 mmol/L (135-145)
--- NOTE | 2024-05-05 08:25 | MHC.CM.PN ---
Per Skyla MALLORY/Juan, Patient is cleared for dc to SNF/STR; CM has asked [facility] to initiate insurance auth. CM will follow.
--- NOTE | 2024-05-05 08:54 | P.PNOP_ITS ---
Subjective Subjective Date of Service: 05/05/24 Interval history: POD3 s/p RTHA Patient is resting in bed comfortably No overnight events Pain is managed No additional complaints Physical Exam Vital Signs: Vital Signs: Last Vital Signs Temp 97.6 F 05/05/24 07:06 Pulse 96 05/05/24 07:06 Resp 17 05/05/24 07:06 BP 98/65 05/05/24 07:06 Pulse Ox 94 05/05/24 07:06 O2 Del Method Nasal Cannula 05/05/24 07:06 O2 Flow Rate 2 05/05/24 07:06 BMI result Body Mass Index 37.5 Const: General: cooperative, healthy appearing and no acute distress Resp: Effort & Inspection: normal respiratory effort and able to speak in complete sentences Cardio: Rate: regular rate Peripheral pulses: Peripheral pulses 2+ throughout GI: Palpation (GI): Soft to palpation Skin: Lesions: no lesions Rashes: no rashes Extrem: Other: right hip dressing is c/d/i. Able to dorsi/plantar flex. Calf is supple and nontender. Sensation intact. Pedal pulse intact. Procedures Date of Service Date of Service: 05/05/24 Progress Note: A&P Assessment and plan (1) S/P total right hip arthroplasty: Status: Acute Plan Continue pain mgmnt Continue Lovenox for dvt ppx Aquacel dressing change today begin PT/OT for RTHA - Walker for 6 weeks Dispo planning-Pending PT eval, pain mgmnt, insurance off, will need transportation back to [facility] Time Spent With Patient Time: Total time managing care of this patient today ____ minutes. Quality Stroke Does the patient have a stroke diagnosis?: No VTE Prior VTE?: No VTE Risk Level:: Medical - moderate - high VTE Device Contraindication: N/A - Device Ordered VTE Drug Contraindication: N/A - Med Ordered
[2024-05-05] MEDS: oxyCODONE HCl ER 10 MG TAB.ER.12H PO (09:00)
[2024-05-05] MEDS: Docusate Sodium 100 MG CAPSULE PO (09:01)
[2024-05-05] MEDS: Venlafaxine HCl ER 150 MG CAP.ER.24H PO (09:01)
[2024-05-05] MEDS: Gabapentin 600 MG TABLET PO (09:01)
[2024-05-05] MEDS: Furosemide 20 MG TABLET PO (09:01)
[2024-05-05] MEDS: Baclofen 10 MG TABLET 5 MG PO (09:01)
[2024-05-05] MEDS: Celecoxib 200 MG CAPSULE PO (09:01)
[2024-05-05] MEDS: cloNIDine HCL 0.1 MG TABLET PO (09:01)
[2024-05-05] MEDS: Gabapentin 100 MG CAPSULE PO (09:03)
[2024-05-05] MEDS: Enoxaparin Sodium 40 MG/0.4 ML SYRINGE SUBCUT (09:04)
[2024-05-05] MEDS: Acetaminophen 325 MG TABLET 650 MG PO (09:04)
--- NOTE | 2024-05-05 10:27 | P.PNOP_ITS ---
Subjective Subjective Date of Service: 05/04/24 Interval history: POD2 s/p RTHA Patient is resting in bed comfortably No overnight events Pain is managed No additional complaints Physical Exam Vital Signs: Vital Signs: Last Vital Signs Temp 97.6 F 05/05/24 07:06 Pulse 96 05/05/24 07:06 Resp 17 05/05/24 07:06 BP 98/65 05/05/24 07:06 Pulse Ox 94 05/05/24 07:06 O2 Del Method Nasal Cannula 05/05/24 07:06 O2 Flow Rate 2 05/05/24 07:06 BMI result Body Mass Index 37.5 Const: General: cooperative, healthy appearing and no acute distress Resp: Effort & Inspection: normal respiratory effort and able to speak in complete sentences Cardio: Rate: regular rate Peripheral pulses: Peripheral pulses 2+ throughout GI: Palpation (GI): Soft to palpation Skin: Lesions: no lesions Rashes: no rashes Extrem: Other: right hip dressing is c/d/i. Able to dorsi/plantar flex. Calf is supple and nontender. Sensation intact. Pedal pulse intact. Procedures Date of Service Date of Service: 05/05/24 Progress Note: A&P Assessment and plan (1) S/P total right hip arthroplasty: Status: Acute Plan Continue pain mgmnt Begin Lovenox for dvt ppx begin PT/OT for RTHA - Walker for 6 weeks Dispo planning-Pending PT eval, pain mgmnt, will need transportation back to [facility] Time Spent With Patient Time: Total time managing care of this patient today ____ minutes. Quality Stroke Does the patient have a stroke diagnosis?: No VTE Prior VTE?: No VTE Risk Level:: Medical - moderate - high VTE Device Contraindication: N/A - Device Ordered VTE Drug Contraindication: N/A - Med Ordered
[2024-05-05 11:11] VITALS: BP 98/65; PULSE 96; O2SAT 94
[2024-05-05] MEDS: polyethylene glycoL 3350 17 GM POWD.PACK PO (11:12)
--- NOTE | 2024-05-05 13:29 | MHC.CM.PN ---
Patient has been medically cleared for dc to SNF/STR today. Patient will dc to [facility] today at 5:30 PM, via [facility]. Patient and Daughter/Fior @ [phone] are aware of and in agreement with the dc plan.
[2024-05-05] MEDS: Albuterol/Iprat 2.5/0.5MG 3 ML AMPUL.NEB INHALE (14:27)
[2024-05-05 14:31] VITALS: PULSE 91; RESP 20; O2SAT 95
== END 2024-05-05 15:28 | disposition skilled nursing facility (03) ==
LOC: HO.SSS 14:53 → HO.IMC 15:40
PROVIDERS: Nurse Practitioner; Physician Assistant; PCP Nurse Practitioner Family; Visit Provider Orthopaedic Surgery
PROC: (CPT 27130; principal; 2024-05-02 07:30)
DX: M87.051 Idiopathic aseptic necrosis of right femur (principal); M70.61 Trochanteric bursitis, right hip; I50.30 Unspecified diastolic (congestive) heart failure; E78.5 Hyperlipidemia, unspecified; M47.816 Spondylosis without myelopathy or radiculopathy, lumbar region; J44.9 Chronic obstructive pulmonary disease, unspecified; N32.81 Overactive bladder; E66.9 Obesity, unspecified; Z68.37 Body mass index [BMI] 37.0-37.9, adult; F41.9 Anxiety disorder, unspecified; F14.11 Cocaine abuse, in remission; F17.210 Nicotine dependence, cigarettes, uncomplicated; Z79.84 Long term (current) use of oral hypoglycemic drugs; Z79.899 Other long term (current) drug therapy; Z88.8 Allergy status to other drugs, medicaments and biological substances
CPT/HCPCS: 27130; 36415; 72170; 73502; 80048; 80307; 83036; 85025; 86850; 86900; 86901; 87640; 87641; 88304; 88311; 94640; 94660; 97110; 97162; 97165; 97530; 97535; C1713; C1776; J0131; J0690; J1100; J1171; J1650; J1920; J2003; J2250; J2371; J2405; J2704; J2795; J3010

== ENCOUNTER → 2024-05-02 06:02 | Outpatient (BNV) | payer OTHER, SELFPAY | PROVIDERS: PCP Nurse Practitioner Family; Visit Provider Physician Assistant | DX: Z96.641 Presence of right artificial hip joint (principal); J44.9 Chronic obstructive pulmonary disease, unspecified | CPT/HCPCS: 99222 ==

== ENCOUNTER → 2024-05-02 06:02 | Outpatient (BNV) | payer OTHER, SELFPAY | PROVIDERS: PCP Nurse Practitioner Family; Visit Provider Orthopaedic Surgery | DX: Z96.641 Presence of right artificial hip joint (principal) | CPT/HCPCS: 27130; 99024 ==

== ENCOUNTER → 2024-05-02 09:57 | Outpatient (BNV) | payer OTHER, SELFPAY | PROVIDERS: PCP Nurse Practitioner Family; Visit Provider Radiology Diagnostic Radiology | DX: Z96.641 Presence of right artificial hip joint (principal) | CPT/HCPCS: 73502 ==

== ENCOUNTER → 2024-05-03 09:50 | Outpatient (BNV) | payer OTHER, SELFPAY | PROVIDERS: PCP Nurse Practitioner Family; Visit Provider Radiology Diagnostic Radiology | DX: M87.051 Idiopathic aseptic necrosis of right femur (principal); Z47.89 Encounter for other orthopedic aftercare | CPT/HCPCS: 72170 ==

== ENCOUNTER 2024-05-18 12:55 | Outpatient (REF) | payer OTHER, SELFPAY ==
--- NOTE | ~2024-05-18 | XR_ITS ---
EXAMINATION: XR PELVIS 1-2 VIEWS HISTORY: M25.559 - Pain in unspecified hip COMPARISON: Comparison is made with the prior examination dated 05/03/2024. FINDINGS: A single AP view of the pelvis is submitted. The patient is again noted to be status post right total hip arthroplasty. The appearance is unchanged on this single AP view. Again seen is mild narrowing of the superior aspect of the left hip joint. The sacroiliac joints are maintained. XR/XR pelvis 1-2V IMPRESSION: Status post right total hip arthroplasty. Mild narrowing of the left hip. Electronically signed by: Neel Calderón MD 05/18/2024 01:26 PM ADITHYA
== END 2024-05-18 12:56 | disposition home or self-care (01) ==
LOC: HO.HOSX 12:55
PROVIDERS: PCP Nurse Practitioner Family; Visit Provider Physician Assistant
DX: M25.551 Pain in right hip (principal); Z96.641 Presence of right artificial hip joint
CPT/HCPCS: 72170; 99212

== ENCOUNTER → 2024-05-18 13:08 | Outpatient (BNV) | payer OTHER, SELFPAY | PROVIDERS: PCP Nurse Practitioner Family; Visit Provider Radiology Diagnostic Radiology | DX: Z96.641 Presence of right artificial hip joint (principal) | CPT/HCPCS: 72170 ==

== ENCOUNTER 2024-05-30 10:09 | Outpatient (REF) | payer OTHER, SELFPAY ==
--- OUTSIDE RECORDS SUMMARY | 2024-05-30 12:36 | XMS_ITS | Clinical Summary ---
Author Organization [facility] Address [address] [place] [address] Care Team Providers Care B And B Gang Worker Name Role Phone Gustavo Dias MD Primary Care Provider [phone] Allergies Active Allergy Reactions Criticality Noted Date Comments Lansoprazole Anaphylaxis High 03/01/2024 Encounters Date Type Department Care Team Description 03/01/2024 3:36 PM EST - 03/01/2024 9:04 PM EST Emergency [facility] Emergency Department [address] [place] [address] Wilman Lay MD Depression, unspecified depression type [...] complete this topic Procedures * Due to [place] [employer] law, this organization might not be sharing negative HIV tests. Procedure Name Priority Date/Time Associated Diagnosis Comments ETHANOL STAT 03/01/2024 4:44 PM EST ACETAMINOPHEN LEVEL STAT 03/01/2024 4 :44 PM EST SALICYLATE LEVEL STAT 03/01/2024 4:44 PM EST CBC AUTO DIFFERENTIAL STAT 03/01/2024 4:44 PM EST COMPREHENSIVE METABOLIC PANEL STAT 03/01/2024 4:44 PM EST from Last 3 Months Results * Due to [place] [employer] law, this organization might not be sharing negative HIV tests. * (ABNORMAL) CBC Auto Differential (03/01/2024 4:44 PM EST) WBC 12.5(H) 4.8 - 10.8 10*3/uL 03/01/2024 4:52 PM EST [facility] RBC 5.27 4.20 - 5.40 10*6/uL 03/01/2024 4:52 PM EST [facility] Hemoglobin 15.0 11.7 - 15.5 g/dL 03/01/2024 4:52 PM EST [facility] Hematocrit 46.5(H) 35.7 - 45.8 % 03/01/2024 4:52 PM EST [facility] MCV 88.2 81.0 - 99.0 fL 03/01/2024 4:52 PM EST [facility] MCH 28.5 26.0 - 34.0 pg 03/01/2024 4:52 PM EST [facility] MCHC 32.3 31.0 - 36.0 g/dL 03/01/2024 4:52 PM EST [facility] RDW 15.8(H) 12.0 - 15.0 % 03/01/2024 4:52 PM EST [facility] RDW Standard Deviation 51.1(H) 36.4 - 46.3 fL 03/01/2024 4:52 PM EST [facility] Platelets 353 140 - 440 10*3/uL 03/01/2024 4:52 PM EST [facility] MPV 9.0(L) 9.4 - 12.3 fL 03/01/2024 4:52 PM EST [facility] Neutrophil % 66.7 50.0 - 75.0 % 03/01/2024 4:52 PM EST [facility] Immature Grans % 0.6 0.0 - 0.9 % 03/01/2024 4:52 PM EST [facility] Lymphocyte % 19.2(L) 20.0 - 44.0 % 03/01/2024 4:52 PM EST [facility] Monocyte % 9.5 0.0 - 14.0 % 03/01/2024 4:52 PM EST [facility] Eosinophil % 3.5 0.0 - 5.0 % 03/01/2024 4:52 PM EST [facility] Basophil % 0.5 0.0 - 2.0 % 03/01/2024 4:52 PM EST [facility] Neutrophil # 8.32(H) 1.80 - 7.70 10*3/uL 03/01/2024 4:52 PM EST [facility] Immature Grans # 0.07(H) 0.00 - 0.03 10*3/uL 03/01/2024 4:52 PM EST [facility] Lymphocyte # 2.40 1.00 - 4.75 10*3/uL 03/01/2024 4:52 PM EST [facility] Monocyte # 1.20 0.00 - 6.00 10*3/uL 03/01/2024 4:52 PM EST [facility] Eosinophil # 0.40 0.00 - 0.80 10*3/uL 03/01/2024 4:52 PM EST [facility] Basophil # 0.10 0.00 - 0.20 10*3/uL 03/01/2024 4:52 PM EST [facility] nRBC % 0.0 0 - 0 /100 WBCs 03/01/2024 4:52 PM EST [facility] nRBC # <0.01 0.00 - 0.13 10*3/uL 03/01/2024 4:52 PM EST [facility] Blood Structure of peripheral vein / Unknown Venipuncture / Unknown 03/01/2024 4:44 PM EST 03/01/2024 4:49 PM EST Subhash Saldana LAB BLOOD ORDERABLES Fin al Result [facility] [address] [place] [address], [place] [phone] * Ethanol (03/01/2024 4:44 PM EST) Ethanol <10 mg/dL 03/01/2024 5:10 PM EST [facility] Blood Structure of peripheral vein / Unknown Venipuncture / Unknown 03/01/2024 4:44 PM EST 03/01/2024 4:49 PM EST Subhash Saldana LAB BLOOD ORDERABLES Fin al Result [facility] [address] [address], [place] [phone] * (ABNORMAL) Acetaminophen Level (03/01/2024 4:44 PM EST) Pathologist [facility] [place] Acetaminophen <5.0(L) 10.0 - 30.0 ug/mL 03/01/2024 5:10 PM EST [facility] Comment:Expected Range with Therapeutic Dosin-30 ug/mL Blood Structure of peripheral vein / Unknown Venipuncture / Unknown 03/01/2024 4:44 PM EST 03/01/2024 4:49 PM EST Subhash Saldana LAB BLOOD ORDERABLES Fin al Result Performing Organization Address [facility]/ZIP Co de Phone Number [facility] [address] [address], [place] [phone] * Salicylate Level (03/01/2024 4:44 PM EST) Pathologist [facility] [place] Salicylate <3 <=29 mg/dL 03/01/2024 5:10 PM EST [facility] Comment:Expected Range with Therapeutic Dosin-30 mg/dL Blood Structure of peripheral vein / Unknown Venipuncture / Unknown 03/01/2024 4:44 PM EST 03/01/2024 4:49 PM EST Subhash Saldana LAB BLOOD ORDERABLES Fin al Result [facility] [address] [address], [place] [phone] * (ABNORMAL) Comprehensive Metabolic Panel (03/01/2024 4:44 PM EST) Pathologist [facility] [place] NA 140 136 - 145 mmol/L 03/01/2024 5:10 PM EST [facility] K 4.2 3.5 - 5.1 mmol/L 03/01/2024 5:10 PM EST [facility] Cl 100 98 - 109 mmol/L 03/01/2024 5:10 PM [facility] CO2 31 22 - 32 mmol/L 03/01/2024 5:10 PM [facility] Anion Gap 13 >=0 03/01/2024 5:10 PM [facility] Glucose 100(H) 60 - 99 mg/dL 03/01/2024 5:10 PM [facility] Creatinine 0.81 0.50 - 1.12 mg/dL 03/01/2024 5:10 PM [facility] Calcium 9.8 8.4 - 10.4 mg/dL 03/01/2024 5:10 PM [facility] Total Protein 6.6 6.6 - 8.7 g/dL 03/01/2024 5:10 PM [facility] Albumin 4.0 3.5 - 5.0 g/dL 03/01/2024 5:10 PM [facility] Bilirubin, Total 0.4 0.2 - 1.2 mg/dL 03/01/2024 5:10 PM [facility] Alkaline Phosphatase 85 40 - 129 U/L 03/01/2024 5:10 PM [facility] AST 22 0 - 33 U/L 03/01/2024 5:10 PM [facility] ALT 20 <=33 U/L 03/01/2024 5:10 PM [facility] BUN 13 6 - 20 mg/dL 03/01/2024 5:10 PM [facility] eGFR 84 >=60 mL/min/1. 73m2 03/01/2024 5:10 PM [facility] Comment:The estimated glomer ular filtration rate [...] - 4.2 g/dL 03/01/2024 5:10 PM EST [facility] A/G Ratio 1.5 1.5 - 3.0 03/01/2024 5:10 PM EST [facility] Blood Structure of peripheral vein / Unknown Venipuncture / Unknown 03/01/2024 4:44 PM EST 03/01/2024 4:49 PM EST us Subhash Saldana LAB BLOOD ORDERABLES Fin al Result Performing Organization Address City/State/[facility] Co de Phone Number [facility] [address] [facility] [address] [place] [address], [place] [phone] from Last 3 Months Insurance [facility] MEDICAID Advance Directives Documents on File Type Date Recorded Patient Metal Furniture Glazier Expl anation MOLST 03/03/2024 6:25 AM 4 Care Teams B And B Gang Worker Relationship Specialty Start Date End Date Gustavo Dias MD [address] [place] [phone] PCP - General Internal Medicine 03/01/24
--- OUTSIDE RECORDS SUMMARY | 2024-05-30 12:36 | XMS_ITS | Referral Summary ---
Author Organization [facility] Address [address] [place] [address] Care Team Providers Care Propagation Worker Name Role Phone Gustavo Dias MD Primary Care Provider [phone] Encounters Date Type Department Care Team Description 03/01/2024 3:36 PM EST - 03/01/2024 9:04 PM EST Emergency [facility] Emergency Department [address] [place] [id number] Wilman Lay MD Depression, unspecified depression type [...] Not on file Procedures * Due to [place] state law, this organization might not be sharing negative HIV tests. Procedure Name Priority Date/Time Associated Diagnosis Comments ETHANOL STAT 03/01/2024 4:44 PM EST ACETAMINOPHEN LEVEL STAT 03/01/2024 4 :44 PM EST SALICYLATE LEVEL STAT 03/01/2024 4:44 PM EST CBC AUTO DIFFERENTIAL STAT 03/01/2024 4:44 PM EST COMPREHENSIVE METABOLIC PANEL STAT 03/01/2024 4:44 PM EST from Last 3 Months Results * Due to [place] state law, this organization might not be sharing negative HIV tests. * (ABNORMAL) CBC Auto Differential (03/01/2024 4:44 PM EST) WBC 12.5(H) 4.8 - 10.8 10*3/uL 03/01/2024 4:52 PM EST [facility] RBC 5.27 4.20 - 5.40 10*6/uL 03/01/2024 4:52 PM EST [facility] Hemoglobin 15.0 11.7 - 15.5 g/dL 03/01/2024 4:52 PM EST [facility] Hematocrit 46.5(H) 35.7 - 45.8 % 03/01/2024 4:52 PM EST [facility] MCV 88.2 81.0 - 99.0 fL 03/01/2024 4:52 PM EST [facility] MCH 28.5 26.0 - 34.0 pg 03/01/2024 4:52 PM EST [facility] MCHC 32.3 31.0 - 36.0 g/dL 03/01/2024 4:52 PM EST [facility] RDW 15.8(H) 12.0 - 15.0 % 03/01/2024 4:52 PM EST [facility] RDW Standard Deviation 51.1(H) 36.4 - 46.3 fL 03/01/2024 4:52 PM EST [facility] Platelets 353 140 - 440 10*3/uL 03/01/2024 4:52 PM EST [facility] MPV 9.0(L) 9.4 - 12.3 fL 03/01/2024 4:52 PM EST [facility] Neutrophil % 66.7 50.0 - 75.0 % 03/01/2024 4:52 PM EST [facility] Immature Grans % 0.6 0.0 - 0.9 % 03/01/2024 4:52 PM EST [facility] Lymphocyte % 19.2(L) 20.0 - 44.0 % 03/01/2024 4:52 PM EST [facility] Monocyte % 9.5 0.0 - 14.0 % 03/01/2024 4:52 PM EST [facility] Eosinophil % 3.5 0.0 - 5.0 % 03/01/2024 4:52 PM EST [facility] Basophil % 0.5 0.0 - 2.0 % 03/01/2024 4:52 PM EST [facility] Neutrophil # 8.32(H) 1.80 - 7.70 10*3/uL 03/01/2024 4:52 PM EST [facility] Immature Grans # 0.07(H) 0.00 - 0.03 10*3/uL 03/01/2024 4:52 PM EST [facility] Lymphocyte # 2.40 1.00 - 4.75 10*3/uL 03/01/2024 4:52 PM EST [facility] Monocyte # 1.20 0.00 - 6.00 10*3/uL 03/01/2024 4:52 PM EST [facility] Eosinophil # 0.40 0.00 - 0.80 10*3/uL 03/01/2024 4:52 PM EST [facility] Basophil # 0.10 0.00 - 0.20 10*3/uL 03/01/2024 4:52 PM EST [facility] nRBC % 0.0 0 - 0 /100 WBCs 03/01/2024 4:52 PM EST [facility] nRBC # <0.01 0.00 - 0.13 10*3/uL 03/01/2024 4:52 PM EST [facility] Blood Structure of peripheral vein / Unknown Venipuncture / Unknown 03/01/2024 4:44 PM EST 03/01/2024 4:49 PM EST Subhash Saldana LAB BLOOD ORDERABLES Fin al Result Performing Organization Address City/[facility]/ZIP Co de Phone Number [facility] [address] [address], [place] [phone] * Ethanol (03/01/2024 4:44 PM EST) Ethanol <10 mg/dL 03/01/2024 5:10 PM EST [facility] Blood Structure of peripheral vein / Unknown Venipuncture / Unknown 03/01/2024 4:44 PM EST 03/01/2024 4:49 PM EST Subhash Saldana LAB BLOOD ORDERABLES Fin al Result Performing Organization Address City/[facility]/ZIP Co de Phone Number [facility] [address] [address], [place] [phone] * (ABNORMAL) Acetaminophen Level (03/01/2024 4:44 PM EST) Acetaminophen <5.0(L) 10.0 - 30.0 ug/mL 03/01/2024 5:10 PM EST [facility] Comment:Expected Range with Therapeutic Dosin-30 ug/mL Blood Structure of peripheral vein / Unknown Venipuncture / Unknown 03/01/2024 4:44 PM EST 03/01/2024 4:49 PM EST Subhash Saldana LAB BLOOD ORDERABLES Fin al Result [facility] [address] [address], [place] [phone] * Salicylate Level (03/01/2024 4:44 PM EST) Salicylate <3 <=29 mg/dL 03/01/2024 5:10 PM EST [facility] Comment:Expected Range with Therapeutic Dosin-30 mg/dL Blood Structure of peripheral vein / Unknown Venipuncture / Unknown 03/01/2024 4:44 PM EST 03/01/2024 4:49 PM EST us Subhash Saldana LAB BLOOD ORDERABLES Fin al Result [facility] [address] [facility] [address] [place] [address], [place] [phone] * (ABNORMAL) Comprehensive Metabolic Panel (03/01/2024 4:44 PM EST) [facility] NA 140 136 - 145 mmol/L 03/01/2024 5:10 PM EST [facility] K 4.2 3.5 - 5.1 mmol/L 03/01/2024 5:10 PM EST [facility] Cl 100 98 - 109 mmol/L 03/01/2024 5:10 PM EST [facility] CO2 31 22 - 32 mmol/L 03/01/2024 5:10 PM EST [facility] Anion Gap 13 >=0 03/01/2024 5:10 PM EST [facility] Glucose 100(H) 60 - 99 mg/dL 03/01/2024 5:10 PM EST [facility] Creatinine 0.81 0.50 - 1.12 mg/dL 03/01/2024 5:10 PM EST [facility] Calcium 9.8 8.4 - 10.4 mg/dL 03/01/2024 5:10 PM EST [facility] Total Protein 6.6 6.6 - 8.7 g/dL 03/01/2024 5:10 PM EST [facility] Albumin 4.0 3.5 - 5.0 g/dL 03/01/2024 5:10 PM EST [facility] Bilirubin, Total 0.4 0.2 - 1.2 mg/dL 03/01/2024 5:10 PM EST [facility] Alkaline Phosphatase 85 40 - 129 U/L 03/01/2024 5:10 PM EST [facility] AST 22 0 - 33 U/L 03/01/2024 5:10 PM EST [facility] ALT 20 <=33 U/L 03/01/2024 5:10 PM EST [facility] BUN 13 6 - 20 mg/dL 03/01/2024 5:10 PM EST [facility] eGFR 84 >=60 mL/min/1. 73m2 03/01/2024 5:10 PM EST [facility] Comment:The estimated glomer ular filtration [...] - 4.2 g/dL 03/01/2024 5:10 PM EST [facility] A/G Ratio 1.5 1.5 - 3.0 03/01/2024 5:10 PM EST [facility] Blood Structure of peripheral vein / Unknown Venipuncture / Unknown 03/01/2024 4:44 PM EST 03/01/2024 4:49 PM EST us [facility] LAB BLOOD ORDERABLES Fin al Result [facility] [address] [place] [address], [place] [phone] from Last 3 Months Insurance [employer]ICA[employer] Advance Directives Documents on File Type Date Recorded Patient Wrapper Hand Expl anation MOLST 03/03/2024 6:25 AM 4 Care Teams Propagation Worker Relationship Specialty Start Date End Date Gustavo Dias MD [address] [place] [phone] PCP - General Internal Medicine 03/01/24
[2024-05-30 13:54] LABS: Influenza A PCR NEGATIVE (Negative); Influenza B PCR NEGATIVE (Negative); Resp Syncy Virus RNA Qual PCR NEGATIVE (Negative); SARS COV2 PCR INHOUSE NEGATIVE (Negative)
== END 2024-05-30 10:10 | disposition home or self-care (01) ==
LOC: HO.LAB 10:09
PROVIDERS: Physician Assistant; PCP Nurse Practitioner Family
DX: J06.9 Acute upper respiratory infection, unspecified (principal); J44.1 Chronic obstructive pulmonary disease with (acute) exacerbation
CPT/HCPCS: 0241U; 99212

== ENCOUNTER 2024-05-30 10:09 | Outpatient (AMB) | payer OTHER, SELFPAY ==
--- NOTE | 2024-05-30 10:58 | AM.OFFWIN_ITS ---
Intake Vital Signs 05/30/24 11:00 Weight 206 lb BP 126/80 Blood Pressure Location Lt brachial Position Sitting Pulse 101 H Pulse Source Pulse Oximeter Temp 98.1 F Temp Source Oral Pulse Oximetry (%) 94 Oxygen Delivery Method Room Air Intake Visit Reasons: EP-sob, chest congestion, head pressure Intake Note: Patient here for SOB, chest congestion, headache, cough that has been present for about 1 week. Patient Tobacco Use Status: Current everyday Tobacco user Allergies lansoprazole [Prevacid] Allergy (Severe, Verified 05/30/24 11:01) anaphylaxis omeprazole [From PRILOSEC] Allergy (Severe, Verified 05/30/24 11:01) ANAPHYLAXIS cyclobenzaprine [From Flexeril] Allergy (Intermediate, Verified 05/30/24 11:01) Rash Do you need a note to return to daycare/school/sports/work: No HPI HPI Comments History of Present Illness Details History - The patient is a 58-year-old female pr esenting with shortness of breath and cough with dark green sputum. - Post recent discharge from a [facility] (05/18) following a hip replacement, the patient began experiencing respiratory symptoms but they got worse about a week ago. - Her shortness of breath and new cough, producing dark green sputum, have worsened over the last week. - Reports COPD managed with an inhaler, though the usual Duoneb was not available post-discharge and Albuterol is inadequate. - Symptoms are accompanied by sinus pres sure, nasal congestion, and intermittent shakes. - Recent exposure to pneumonia in her [facility] environment causes concern for res piratory infection. - Past surgical history includes hip rep lacement for avascular necrosis. Physical Exam General: Cooperative, healthy appearing, comfortable and no acute distress Orientation/consciousness: Patient oriented x3 Limitations: walker for ambulation Head: Normal to inspection Ears: Hearing grossly normal bilaterally, external ears normal and TM's normal bilaterally Nose: Normal external nose present, Normal nares present and No nasal discharge present Face and sinus: Normal facial exam and Sinuses tender under the eyes Mouth: Normal oral and palatal mucosa present and moist mucous membranes Throat: Yes tonsils normal, Yes uvula midline. Posterior oropharynx erythema Eyes: Appearance normal, both eyes and all related structures Neck: Normal visual inspection Respiratory: Clear to auscultation bilaterally. Normal respiratory effort, able to speak in complete sentences, Actively coughing, no respiratory distress, not tachypneic, no tripod positioning and no use of accessory muscles Cardiovascular: Regular rate and rhythm. Normal S1 and S2 Skin: No rashes or lesions noted Neuro: Patient oriented x3 Extremities: Normal to inspection and Yes no clubbing, cyanosis or edema [facility] Medical History [facility]ides in [facility] Heart failure with preserved ejection fraction Substance abuse Acute exacerbation of chronic obstructive pulmonary disease Lumbar spondylosis Trochanteric bursitis of right hip Obesity Nicotine dependence, cigarettes, uncomplicated History of sepsis Urinary frequency COPD (chronic obstructive pulmonary disease) Exercise hypoxemia Smoker Bilateral hip pain Dyslipidemia Lower back pain Anxiety associated with depression Somatic dysfunction of left sacroiliac joint Surgical History History of section Family History Father Substance use disorder Mother Substance use disorder Mental health disorder Maternal Grandmother Substance use disorder Mental health disorder Social History Household Members: Family Housing: House Housing Other:: currently @ [facility] for rehab Are you a primary health care coordinator to a significant other at home: No Do you presently have visiting nurse or other home services: No Alcohol intake: current Alcohol intake frequency: does not drink Patient Tobacco Use Status: Current everyday Tobacco user Tobacco use type: Cigarette Cigarette Packs Per Day: 0.5 Cigarettes Per Day: 6 Years Smoked: 30 e-Cigarette/Vaping Use: Never Used Second Hand Smoke Exposure: No Substance Use Type: Crack/Cocaine service: No Current occupational status: employed Current occupation: [employer] Cognitive needs: No Hearing needs: No Vision needs: No Review of Systems Const All systems reviewed & are unremarkable except as noted in HPI and below Physical Exam Vital Signs: Last Vital Signs Temp 98.1 F 05/30/24 11:00 Pulse 101 H 05/30/24 11:00 BP 126/80 05/30/24 11:00 Pulse Ox 94 05/30/24 11:00 Oxygen Delivery Method Room Air 05/30/24 11:00 Assessment & Plan Assessment & Plan (1) URI, acute: Code(s): J06.9 - Acute upper respiratory infection, unspecified Plan: VSS, pt well appearing, PE unremarkable. A comprehensive evaluation and management plan was outlined for the patient presenting with respiratory concerns and COPD exacerbation. Testing for influenza, COVID-19, and RSV was initiated to evaluate viral causes. Conc urrently, a course of SoluMedrol was agreed upon to control inflammation and associated respiratory distress with specific instructions for morning dosage. Duoneb inhalation was prescribed anew to manage COPD symptoms effectively, addressing recently noted inadequacies of Albuterol. Nasal Fluticasone was recommended for sinus congestion relief. Further treatment with a Z-Gary will depend on test results to tackle possible bacterial origins and its anti- inflammatory effect. Advised monitoring and updating management as results are obtained. Patient was informed and verbally consented to the use of an ambient scribe for clinic note documentation during this visit (2) COPD with exacerbation: Code(s): J44.1 - Chronic obstructive pulmonary disease with (acute) exacerbation Plan: as above Orders: Orders SARS-CoV2/FLU/RSV Today J06.9 - Acute upper respiratory infection, unspecified Medications: New fluticasone propionate 50 mcg/actuation administer into each nostril 1 spray intranasal Q12H 16 grams 0RF methylprednisolone PO PER PKG DIR for 6 days 21 ea 0RF Refilled ipratropium-albuterol 0.5 mg-3 mg(2.5 mg base)/3 mL 3 mL inhalation RQ4H WHILE AWAKE PRN 60 mL 0RF shortness of breath or wheezing Coding Level of Care Code Est Pt Level 3 (09375) Diagnoses URI, acute J06.9 COPD with exacerbation J44.1
[2024-05-30 11:00] VITALS: BP 126/80; PULSE 101; TEMP 36.7; O2SAT 94
--- OUTSIDE RECORDS SUMMARY | 2024-05-30 11:05 | XMS_ITS | Referral Summary ---
Author Organization [facility] Address [address] [place] [address] Care Team Providers Care Ux Developer Name Role Phone Gustavo Dias MD Primary Care Provider [phone] Encounters Date Type Department Care Team Description 03/01/2024 3:36 PM EST - 03/01/2024 9:04 PM EST Emergency [facility] Emergency Department [address] [place] [id number] Wilman Lay MD Depression, unspecified depression type (Primary Dx) Discharge Disposition: Home or Self Care (01) from Last 3 Months Allergies Active Allergy Reactions Criticality Noted Date Comments Lansoprazole Anaphylaxis High 03/01/2024 Social History Tobacco Use Types Packs/Day Years Used Date Smoking Tobacco: Never Assessed Comments Unknown Sex and Gender Information Value Date Recorded Sex Assigned at Female 03/01/2024 4:11 PM EST Legal Sex Female 3:35 PM EST Gender Identity Not on file Sexual Orientation Not on file Last Filed Vital Signs Vital Sign Reading Time Taken Comments Blood Pressure 129/62 03/01/2024 3:56 PM EST Pulse 111 03/01/2024 3:56 PM EST Temperature 36.9 ??C (98.4 ??F) 03/01/2024 3:56 PM ES T Respiratory Rate 16 03/01/2024 3:56 PM EST Oxygen Saturation 97% 03/01/2024 3:56 PM EST Inhaled Oxygen Concentration - - Weight - - Height - - Body Mass Index - - Plan of Treatment Not on file Procedures * Due to [place] state law, this organization might not be sharing negative HIV tests. Procedure Name Priority Date/Time Associated Diagnosis Comments ETHANOL STAT 03/01/2024 4:44 PM EST ACETAMINOPHEN LEVEL STAT 03/01/2024 4 :44 PM EST SALICYLATE LEVEL STAT 03/01/2024 4:44 PM EST CBC AUTO DIFFERENTIAL STAT 03/01/2024 4:44 PM EST COMPREHENSIVE METABOLIC PANEL STAT 03/01/2024 4:44 PM EST from Last 3 Months Results * Due to [place] state law, this organization might not be sharing negative HIV tests. * (ABNORMAL) CBC Auto Differential (03/01/2024 4:44 PM EST) WBC 12.5(H) 4.8 - 10.8 10*3/uL 03/01/2024 4:52 PM EST [facility] RBC 5.27 4.20 - 5.40 10*6/uL 03/01/2024 4:52 PM EST [facility] Hemoglobin 15.0 11.7 - 15.5 g/dL 03/01/2024 4:52 PM EST [facility] Hematocrit 46.5(H) 35.7 - 45.8 % 03/01/2024 4:52 PM EST [facility] MCV 88.2 81.0 - 99.0 fL 03/01/2024 4:52 PM EST [facility] MCH 28.5 26.0 - 34.0 pg 03/01/2024 4:52 PM EST [facility] MCHC 32.3 31.0 - 36.0 g/dL 03/01/2024 4:52 PM EST [facility] RDW 15.8(H) 12.0 - 15.0 % 03/01/2024 4:52 PM EST [facility] RDW Standard Deviation 51.1(H) 36.4 - 46.3 fL 03/01/2024 4:52 PM EST [facility] Platelets 353 140 - 440 10*3/uL 03/01/2024 4:52 PM EST [facility] MPV 9.0(L) 9.4 - 12.3 fL 03/01/2024 4:52 PM EST [facility] Neutrophil % 66.7 50.0 - 75.0 % 03/01/2024 4:52 PM EST [facility] Immature Grans % 0.6 0.0 - 0.9 % 03/01/2024 4:52 PM EST [facility] Lymphocyte % 19.2(L) 20.0 - 44.0 % 03/01/2024 4:52 PM EST [facility] Monocyte % 9.5 0.0 - 14.0 % 03/01/2024 4:52 PM EST [facility] Eosinophil % 3.5 0.0 - 5.0 % 03/01/2024 4:52 PM EST [facility] Basophil % 0.5 0.0 - 2.0 % 03/01/2024 4:52 PM EST [facility] Neutrophil # 8.32(H) 1.80 - 7.70 10*3/uL 03/01/2024 4:52 PM EST [facility] Immature Grans # 0.07(H) 0.00 - 0.03 10*3/uL 03/01/2024 4:52 PM EST [facility] Lymphocyte # 2.40 1.00 - 4.75 10*3/uL 03/01/2024 4:52 PM EST [facility] Monocyte # 1.20 0.00 - 6.00 10*3/uL 03/01/2024 4:52 PM EST [facility] Eosinophil # 0.40 0.00 - 0.80 10*3/uL 03/01/2024 4:52 PM EST [facility] Basophil # 0.10 0.00 - 0.20 10*3/uL 03/01/2024 4:52 PM EST [facility] nRBC % 0.0 0 - 0 /100 WBCs 03/01/2024 4:52 PM EST [facility] nRBC # <0.01 0.00 - 0.13 10*3/uL 03/01/2024 4:52 PM EST [facility] Blood Structure of peripheral vein / Unknown Venipuncture / Unknown 03/01/2024 4:44 PM EST 03/01/2024 4:49 PM EST Subhash Saldana LAB BLOOD ORDERABLES Fin al Result Performing Organization Address City/[facility]/ZIP Co de Phone Number [facility] [address] [address], [place] [phone] * Ethanol (03/01/2024 4:44 PM EST) Ethanol <10 mg/dL 03/01/2024 5:10 PM EST [facility] Blood Structure of peripheral vein / Unknown Venipuncture / Unknown 03/01/2024 4:44 PM EST 03/01/2024 4:49 PM EST Subhash Saldana LAB BLOOD ORDERABLES Fin al Result Performing Organization Address City/[facility]/ZIP Co de Phone Number [facility] [address] [address], [place] [phone] * (ABNORMAL) Acetaminophen Level (03/01/2024 4:44 PM EST) Acetaminophen <5.0(L) 10.0 - 30.0 ug/mL 03/01/2024 5:10 PM EST [facility] Comment:Expected Range with Therapeutic Dosin-30 ug/mL Blood Structure of peripheral vein / Unknown Venipuncture / Unknown 03/01/2024 4:44 PM EST 03/01/2024 4:49 PM EST Subhash Saldana LAB BLOOD ORDERABLES Fin al Result [facility] [address] [address], [place] [phone] * Salicylate Level (03/01/2024 4:44 PM EST) Salicylate <3 <=29 mg/dL 03/01/2024 5:10 PM EST [facility] Comment:Expected Range with Therapeutic Dosin-30 mg/dL Blood Structure of peripheral vein / Unknown Venipuncture / Unknown 03/01/2024 4:44 PM EST 03/01/2024 4:49 PM EST us Subhash Saldana LAB BLOOD ORDERABLES Fin al Result [facility] [address] [facility] [address] [place] [address], [place] [phone] * (ABNORMAL) Comprehensive Metabolic Panel (03/01/2024 4:44 PM EST) [facility] NA 140 136 - 145 mmol/L 03/01/2024 5:10 PM EST [facility] K 4.2 3.5 - 5.1 mmol/L 03/01/2024 5:10 PM EST [facility] Cl 100 98 - 109 mmol/L 03/01/2024 5:10 PM EST [facility] CO2 31 22 - 32 mmol/L 03/01/2024 5:10 PM EST [facility] Anion Gap 13 >=0 03/01/2024 5:10 PM EST [facility] Glucose 100(H) 60 - 99 mg/dL 03/01/2024 5:10 PM EST [facility] Creatinine 0.81 0.50 - 1.12 mg/dL 03/01/2024 5:10 PM EST [facility] Calcium 9.8 8.4 - 10.4 mg/dL 03/01/2024 5:10 PM EST [facility] Total Protein 6.6 6.6 - 8.7 g/dL 03/01/2024 5:10 PM EST [facility] Albumin 4.0 3.5 - 5.0 g/dL 03/01/2024 5:10 PM EST [facility] Bilirubin, Total 0.4 0.2 - 1.2 mg/dL 03/01/2024 5:10 PM EST [facility] Alkaline Phosphatase 85 40 - 129 U/L 03/01/2024 5:10 PM EST [facility] AST 22 0 - 33 U/L 03/01/2024 5:10 PM EST [facility] ALT 20 <=33 U/L 03/01/2024 5:10 PM EST [facility] BUN 13 6 - 20 mg/dL 03/01/2024 5:10 PM EST [facility] eGFR 84 >=60 mL/min/1. 73m2 03/01/2024 5:10 PM EST [facility] Comment:The estimated glomer ular filtration rate (eGFR) is calculated using a new formula developed by the NKF-ASN task force to eliminate race-based correction factors. The new formula uses serum/plasma creatinine, age, and gender to determine eGFR. A value below 60mls/min might indicate kidney disease and will be flagged. For additional information, see Teagan et al, Am J Kidney Dis. 2021;79(2):268- 288, A Unifying Approach for GFR estimation: Recommendations of the NKF-ASN Task Force on Reassessing the Inclusion of Race in Diagnosing Kidney Disease . Globulin, Total 2.6 2.1 - 4.2 g/dL 03/01/2024 5:10 PM EST [facility] A/G Ratio 1.5 1.5 - 3.0 03/01/2024 5:10 PM EST [facility] Blood Structure of peripheral vein / Unknown Venipuncture / Unknown 03/01/2024 4:44 PM EST 03/01/2024 4:49 PM EST us Subhash Saldana LAB BLOOD ORDERABLES Fin al Result [facility] [address] [facility] [address] [place] [address], [place] [phone] from Last 3 Months Insurance [facility] MEDICAID Advance Directives Documents on File Type Date Recorded Patient Bobbin Disker Expl anation MOLST 03/03/2024 6:25 AM 4 Care Teams Ux Developer Relationship Specialty Start Date End Date Gustavo Dias MD [address] [place] [phone] PCP - General Internal Medicine 03/01/24
--- OUTSIDE RECORDS SUMMARY | 2024-05-30 11:05 | XMS_ITS | Clinical Summary ---
Author Organization [facility] Address [address] [place] [address] Care Team Providers Care Silk Spotter Name Role Phone Gustavo Dias MD Primary Care Provider [phone] Allergies Active Allergy Reactions Criticality Noted Date Comments Lansoprazole Anaphylaxis High 03/01/2024 Encounters Date Type Department Care Team Description 03/01/2024 3:36 PM EST - 03/01/2024 9:04 PM EST Emergency [facility] Emergency Department [address] [place] [address] Wilman Lay MD Depression, unspecified depression type (Primary Dx) Discharge Disposition: Home or Self Care (01) from Last 3 Months Social History Tobacco Use Types Packs/Day Years [...] Mass Index - - Plan of Treatment Health Maintenance Due Date Last Done Comments Cervical Cancer Screening 1965 Cologuard 1965 Colon Cancer Screening 1965 Colonoscopy 1965 FOBT / Fit Test 1965 HIV Screening 1965 HPV and Pap Smear 1965 Pap Smear 1965 Sigmoidoscopy 1965 Hepatitis B Vaccines (1 of 3 - 19+ 3-dose series) 1984 DTaP,Tdap,and Td Vaccines (1 - Tdap) 08/16/1987 Pneumococcal Vaccine: 50+ Ye ars (1 of 1 - PCV) 08/16/2015 Zoster Vaccines (1 of 2) 08/16/2015 Influenza Vaccine (#1) 2023 Alcohol/Substance Use Screening 04/12/2024 RSV Vaccine (60+ years old a nd patients) (1 - 1-dose 75+ series) 2040 Pneumococcal Vaccine: Pediat deep (0-5 Years) and At-Risk Patients (6-50 Years) Aged Out No longer eligible b ased on patient's age to complete this topic Procedures * Due to [place] [employer] law, this organization might not be sharing negative HIV tests. Procedure Name Priority Date/Time Associated Diagnosis Comments ETHANOL STAT 03/01/2024 4:44 PM EST ACETAMINOPHEN LEVEL STAT 03/01/2024 4 :44 PM EST SALICYLATE LEVEL STAT 03/01/2024 4:44 PM EST CBC AUTO DIFFERENTIAL STAT 03/01/2024 4:44 PM EST COMPREHENSIVE METABOLIC PANEL STAT 03/01/2024 4:44 PM EST from Last 3 Months Results * Due to [place] [employer] law, this organization might not be sharing negative HIV tests. * (ABNORMAL) CBC Auto Differential (03/01/2024 4:44 PM EST) WBC 12.5(H) 4.8 - 10.8 10*3/uL 03/01/2024 4:52 PM EST [facility] RBC 5.27 4.20 - 5.40 10*6/uL 03/01/2024 4:52 PM EST [facility] Hemoglobin 15.0 11.7 - 15.5 g/dL 03/01/2024 4:52 PM EST [facility] Hematocrit 46.5(H) 35.7 - 45.8 % 03/01/2024 4:52 PM EST [facility] MCV 88.2 81.0 - 99.0 fL 03/01/2024 4:52 PM EST [facility] MCH 28.5 26.0 - 34.0 pg 03/01/2024 4:52 PM EST [facility] MCHC 32.3 31.0 - 36.0 g/dL 03/01/2024 4:52 PM EST [facility] RDW 15.8(H) 12.0 - 15.0 % 03/01/2024 4:52 PM EST [facility] RDW Standard Deviation 51.1(H) 36.4 - 46.3 fL 03/01/2024 4:52 PM EST [facility] Platelets 353 140 - 440 10*3/uL 03/01/2024 4:52 PM EST [facility] MPV 9.0(L) 9.4 - 12.3 fL 03/01/2024 4:52 PM EST [facility] Neutrophil % 66.7 50.0 - 75.0 % 03/01/2024 4:52 PM EST [facility] Immature Grans % 0.6 0.0 - 0.9 % 03/01/2024 4:52 PM EST [facility] Lymphocyte % 19.2(L) 20.0 - 44.0 % 03/01/2024 4:52 PM EST [facility] Monocyte % 9.5 0.0 - 14.0 % 03/01/2024 4:52 PM EST [facility] Eosinophil % 3.5 0.0 - 5.0 % 03/01/2024 4:52 PM EST [facility] Basophil % 0.5 0.0 - 2.0 % 03/01/2024 4:52 PM EST [facility] Neutrophil # 8.32(H) 1.80 - 7.70 10*3/uL 03/01/2024 4:52 PM EST [facility] Immature Grans # 0.07(H) 0.00 - 0.03 10*3/uL 03/01/2024 4:52 PM EST [facility] Lymphocyte # 2.40 1.00 - 4.75 10*3/uL 03/01/2024 4:52 PM EST [facility] Monocyte # 1.20 0.00 - 6.00 10*3/uL 03/01/2024 4:52 PM EST [facility] Eosinophil # 0.40 0.00 - 0.80 10*3/uL 03/01/2024 4:52 PM EST [facility] Basophil # 0.10 0.00 - 0.20 10*3/uL 03/01/2024 4:52 PM EST [facility] nRBC % 0.0 0 - 0 /100 WBCs 03/01/2024 4:52 PM EST [facility] nRBC # <0.01 0.00 - 0.13 10*3/uL 03/01/2024 4:52 PM EST [facility] Blood Structure of peripheral vein / Unknown Venipuncture / Unknown 03/01/2024 4:44 PM EST 03/01/2024 4:49 PM EST Subhash Saldana LAB BLOOD ORDERABLES Fin al Result [facility] [address] [place] [address], [place] [phone] * Ethanol (03/01/2024 4:44 PM EST) Ethanol <10 mg/dL 03/01/2024 5:10 PM EST [facility] Blood Structure of peripheral vein / Unknown Venipuncture / Unknown 03/01/2024 4:44 PM EST 03/01/2024 4:49 PM EST Subhash Saldana LAB BLOOD ORDERABLES Fin al Result [facility] [address] [address], [place] [phone] * (ABNORMAL) Acetaminophen Level (03/01/2024 4:44 PM EST) Pathologist [facility] [place] Acetaminophen <5.0(L) 10.0 - 30.0 ug/mL 03/01/2024 5:10 PM EST [facility] Comment:Expected Range with Therapeutic Dosin-30 ug/mL Blood Structure of peripheral vein / Unknown Venipuncture / Unknown 03/01/2024 4:44 PM EST 03/01/2024 4:49 PM EST Subhash Saldana LAB BLOOD ORDERABLES Fin al Result Performing Organization Address [facility]/ZIP Co de Phone Number [facility] [address] [address], [place] [phone] * Salicylate Level (03/01/2024 4:44 PM EST) Pathologist [facility] [place] Salicylate <3 <=29 mg/dL 03/01/2024 5:10 PM EST [facility] Comment:Expected Range with Therapeutic Dosin-30 mg/dL Blood Structure of peripheral vein / Unknown Venipuncture / Unknown 03/01/2024 4:44 PM EST 03/01/2024 4:49 PM EST Subhash Saldana LAB BLOOD ORDERABLES Fin al Result [facility] [address] [address], [place] [phone] * (ABNORMAL) Comprehensive Metabolic Panel (03/01/2024 4:44 PM EST) Pathologist [facility] [place] NA 140 136 - 145 mmol/L 03/01/2024 5:10 PM EST [facility] K 4.2 3.5 - 5.1 mmol/L 03/01/2024 5:10 PM EST [facility] Cl 100 98 - 109 mmol/L 03/01/2024 5:10 PM [facility] CO2 31 22 - 32 mmol/L 03/01/2024 5:10 PM [facility] Anion Gap 13 >=0 03/01/2024 5:10 PM [facility] Glucose 100(H) 60 - 99 mg/dL 03/01/2024 5:10 PM [facility] Creatinine 0.81 0.50 - 1.12 mg/dL 03/01/2024 5:10 PM [facility] Calcium 9.8 8.4 - 10.4 mg/dL 03/01/2024 5:10 PM [facility] Total Protein 6.6 6.6 - 8.7 g/dL 03/01/2024 5:10 PM [facility] Albumin 4.0 3.5 - 5.0 g/dL 03/01/2024 5:10 PM [facility] Bilirubin, Total 0.4 0.2 - 1.2 mg/dL 03/01/2024 5:10 PM [facility] Alkaline Phosphatase 85 40 - 129 U/L 03/01/2024 5:10 PM [facility] AST 22 0 - 33 U/L 03/01/2024 5:10 PM [facility] ALT 20 <=33 U/L 03/01/2024 5:10 PM [facility] BUN 13 6 - 20 mg/dL 03/01/2024 5:10 PM [facility] eGFR 84 >=60 mL/min/1. 73m2 03/01/2024 5:10 PM [facility] Comment:The estimated glomer ular filtration [...] - 4.2 g/dL 03/01/2024 5:10 PM EST [facility] A/G Ratio 1.5 1.5 - 3.0 03/01/2024 5:10 PM EST [facility] Blood Structure of peripheral vein / Unknown Venipuncture / Unknown 03/01/2024 4:44 PM EST 03/01/2024 4:49 PM EST us Subhash Saldana LAB BLOOD ORDERABLES Fin al Result Performing Organization Address City/State/[facility] Co de Phone Number [facility] [address] [facility] [address] [place] [address], [place] [phone] from Last 3 Months Insurance [facility] MEDICAID Advance Directives Documents on File Type Date Recorded Patient Financial Administration Officer Expl anation MOLST 03/03/2024 6:25 AM 4 Care Teams Silk Spotter Relationship Specialty Start Date End Date Gustavo Dias MD [address] [place] [phone] PCP - General Internal Medicine 03/01/24
== END 2024-05-30 11:28 | disposition home or self-care (01) ==
PROVIDERS: PCP Nurse Practitioner Family; Visit Provider Physician Assistant
DX: J06.9 Acute upper respiratory infection, unspecified (principal); J44.1 Chronic obstructive pulmonary disease with (acute) exacerbation

== ENCOUNTER 2024-06-08 09:47 | Outpatient (REF) | payer OTHER, SELFPAY ==
--- NOTE | ~2024-06-08 | XR_ITS ---
CLINICAL HISTORY: M25.559 - Pain in unspecified hip 2 view pelvis Comparison: 05/18/2024 Findings: No acute fracture or dislocation. Components of the right hip prosthesis are intact and well aligned. No significant arthritic changes. Soft tissues are unremarkable. IMPRESSION: 1. No acute findings. This document has been electronically signed by: Nadeem Sauer MD on 06/08/2024 19:20:42
--- OUTSIDE RECORDS SUMMARY | 2024-06-08 14:17 | XMS_ITS | Clinical Summary ---
Author Organization [facility] Address [address] [place] [address] Care Team Providers Care Roof Panel Hanger Name Role Phone Gustavo Dias MD Primary Care Provider [phone] Allergies Active Allergy Reactions Criticality Noted Date [...] Documents on File Type Date Recorded Patient Clamp Carrier Operator Expl anation MOLST 03/03/2024 6:25 AM 4 Care Teams Roof Panel Hanger Relationship Specialty Start Date End Date Gustavo Dias MD [address] [place] [address] [phone] PCP - General Internal Medicine 03/01/24
--- OUTSIDE RECORDS SUMMARY | 2024-06-08 14:17 | XMS_ITS | Referral Summary ---
Author Organization [facility] Address [address] [place] [address] Care Team Providers Care Yard Motor Operator Name Role Phone Gustavo Dias MD Primary Care Provider [phone] Allergies Active Allergy Reactions Criticality Noted Date [...] Documents on File Type Date Recorded Patient Director Of Casework Department Eriberto BREAUX 03/03/2024 6:25 AM 4 Care Teams Yard Motor Operator Relationship Specialty Start Date End Date Gustavo Dias MD [address] [place] [address] [phone] PCP - General Internal Medicine 03/01/24
== END 2024-06-08 09:48 | disposition home or self-care (01) ==
LOC: HO.HOSX 09:47
PROVIDERS: PCP Nurse Practitioner Family; Visit Provider Internal Medicine
DX: M25.559 Pain in unspecified hip (principal); Z96.641 Presence of right artificial hip joint; J44.9 Chronic obstructive pulmonary disease, unspecified; F17.210 Nicotine dependence, cigarettes, uncomplicated; R05.9 Cough, unspecified; R06.02 Shortness of breath
CPT/HCPCS: 72170; 99212

== ENCOUNTER 2024-06-08 09:47 | Outpatient (AMB) | payer OTHER, SELFPAY ==
[2024-06-08 09:58] VITALS: BP 130/80; PULSE 101; O2SAT 91; BMI 39.1
--- NOTE | 2024-06-08 09:58 | MHC.OFFVIS ---
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 Apprentice Required: No Allergies lansoprazole [Prevacid] Allergy (Severe, Verified 06/08/24 10:12) anaphylaxis omeprazole [From PRILOSEC] Allergy (Severe, Verified 06/08/24 10:12) ANAPHYLAXIS cyclobenzaprine [From Flexeril] Allergy (Intermediate, Verified 06/08/24 10:12) Rash Medication List - Last Reconciled 06/08/24 by Ramon Avila MD acetaminophen 650 mg (2 x 325 mg) PO Q6H PRN 30 days baclofen 5 mg PO TID Breztri Aerosphere 160-9-4.8 mcg/actuation (fyztkdtuzl-xbnyhgcy-pfzmjinheh) 2 inhalations inhalation BID NS celecoxib 200 mg PO BID 30 days clonidine HCl 0.1 mg PO BID docusate sodium 100 mg PO BID 30 days empagliflozin (Jardiance) 10 mg PO DAILY enoxaparin 40 mg (0.4 mL) subcut Q24H 42 days fluticasone propionate 50 mcg/actuation 1 spray intranasal Q12H furosemide 20 mg See Protocol PO DAILY gabapentin 100 mg PO TID gabapentin 600 mg PO TID ipratropium-albuterol 0.5 mg-3 mg(2.5 mg base)/3 mL 3 mL inhalation RQ4H WHILE AWAKE PRN oxycodone 10 mg (2 x 5 mg) PO Q6H PRN 7 days venlafaxine ER 150 mg PO BID walker Folding Front wheeled walker duration 99 days Do you need a note to return to daycare/school/sports/work: No HPI HPI productive cough/shortness of breath: Details: 58 YEARS OLD FEMALE A LIFELONG SMOKER, WITH ADVANCED COPD. HAS HAD INCREASED COUGH AND CONGESTION SINCE ABOUT A WEEK AGO, SHE WAS SEEN AT AN URGENT CARE CLINIC, AND TREATED WITH A COURSE OF Z-MORIS AND PREDNISONE. SHE HAS GOTTEN BETTER AND NOW ONLY HAS SOME SORENESS IN THE THROAT. SHE CAN WALK AROUND WITHOUT MUCH SHORTNESS OF BREATH. SHE WALKS WITH A WALKER. SHE DID HAVE RIGHT HIP SURGERY IN MARCH AND RECOVERED UNEVENTFULLY. UNFORTUNATELY STILL SMOKES ABOUT 6 CIGARETTES A DAY . [facility] Medical History Resides in [facility] facility Heart failure with preserved ejection fraction Substance abuse Acute exacerbation of chronic obstructive pulmonary disease Lumbar spondylosis Trochanteric bursitis of right hip Obesity Nicotine dependence, cigarettes, uncomplicated History of sepsis Urinary frequency COPD (chronic obstructive pulmonary disease) Exercise hypoxemia Smoker Bilateral hip pain Dyslipidemia Lower back pain Anxiety associated with depression Somatic dysfunction of left sacroiliac joint Surgical History History of section Family History Father Substance use disorder Mother Substance use disorder Mental health disorder Maternal Grandmother Substance use disorder Mental health disorder Social History Household Members: Family Housing: House Housing Other:: currently @ [facility] for rehab Are you a primary career development engineer to a significant other at home: No Do you presently have visiting nurse or other home services: No Alcohol intake: current Alcohol intake frequency: does not drink Patient Tobacco Use Status: Current everyday Tobacco user Tobacco use type: Cigarette Cigarette Packs Per Day: 0.5 Cigarettes Per Day: 6 Years Smoked: 30 e-Cigarette/Vaping Use: Never Used Second Hand Smoke Exposure: No Substance Use Type: Crack/Cocaine service: No Current occupational status: employed Current occupation: [employer] Cognitive needs: No Hearing needs: No Vision needs: No Review of Systems Const All systems reviewed & are unremarkable except as noted in HPI and below Eyes Reports no additional complaints ENT Reports no additional complaints Card Denies chest pain, Denies irregular heart rhythm and Reports dyspnea on exertion Resp Reports as per HPI, Reports dyspnea on exertion and Denies wheezing GI Reports no additional complaints Reports no additional complaints Musc Reports back pain, Reports myalgias and Reports arthralgias (Painful right hip and has difficulty in standing and walking) Skin/Breast Reports system reviewed and no additional complaints, except as documented Neuro Reports no additional complaints Psych Reports anxiety Endo Reports no additional complaints Aller/Immun Denies wheezing Physical Exam Vital Signs: Last Vital Signs Pulse 101 H 06/08/24 09:58 BP 130/80 06/08/24 09:58 Pulse Ox 91 L 06/08/24 09:58 Oxygen Delivery Method Room Air 06/08/24 09:58 BMI result Body Mass Index 39.1 Const General: comfortable, no acute distress, alert and awake Orientation/consciousness: patient oriented x3 HEENT Head: Yes normal to inspection General nose exam: No nasal polyps present and No nasal discharge present Face and sinus: Yes sinuses nontender Mouth: oropharynx normal (MUCOSA IS DRY AND SLIGHTLY REDDISH, NO EXUDATES) Throat: Yes posterior oropharynx normal Eyes General: appearance normal, both eyes and all related structures Neck Neck: Yes normal visual inspection, Yes no lymphadenopathy, Yes trachea midline and Yes no JVD Thyroid: Thyroid normal Chest Chest palpation & inspection: normal inspection of the chest, normal palpation of entire chest wall and no tenderness Resp Other: PERCUSSION NOTE IS RESONANT, BREATH SOUNDS ARE DISTANT BUT EQUAL ON BOTH SIDES. NO WHEEZES RHONCHI OR CREPITATIONS ARE HEARD . Cardio Palpation: normal PMI Rate: regular rate Rhythm: regular rhythm Heart sounds: no gallops and no murmurs Peripheral pulses: Peripheral pulses 2+ throughout GI Palpation (GI): Soft to palpation, nontender, No hepatosplenomegaly present and no masses Auscultation: normal bowel sounds Back/Spine/Pelvis Thoracic/Lumbar Spine: thoracic and lumbar spine normal to inspection Skin General skin exam: no rashes or lesions noted Neuro General: patient oriented x3 and no focal motor deficits Cranial nerves: Yes CN's II-XII intact bilaterally Extrem General: No normal to inspection (Patient is in wheelchair and not able to stand or walk due to severe pain. ), Yes no clubbing, cyanosis or edema and Yes no calf tenderness Psych Appearance: grossly normal and well kempt Speech and movement: Normal speech and movement present Assessment & Plan Assessment & Plan (1) COPD (chronic obstructive pulmonary disease): Comment: THIS PATIENT IS A KNOWN CASE OF ADVANCED CHRONIC OBSTRUCTIVE PULMONARY DISEASE. DEFINITELY RELATED TO HER LIFELONG SMOKING. RECENTLY TREATED AT URGENT CARE CLINIC WITH THE A COURSE OF PREDNISONE AND Z-MORIS AND HAS RECOVERED FROM AN ACUTE EXACERBATION. AT THIS TIME SHE SEEMS TO BE AT BASELINE. Code(s): J44.9 - Chronic obstructive pulmonary disease, unspecified Category: Medical Plan: ADVISED TO GARGLE THE THROAT 2 OR 3 TIMES A DAY. CONTINUE USING BREZTRI INHALER B.I.D.. CONTINUE TO USE DUONEB UPDRAFTS TWICE A DAY AND MAY INCREASE TO 3 OF 4 TIMES A DAY DURING ACUTE EXACERBATION. THERE IS NO NEED OF ANY MORE PREDNISONE OR ANTIBIOTIC AT THIS TIME . (2) Nicotine dependence, cigarettes, uncomplicated: Comment: (Current smoker - onset 23yo, 1ppd x 34yrs, 30pyh) STILL SMOKING 6 CIGARETTES A DAY. Code(s): F17.210 - Nicotine dependence, cigarettes, uncomplicated Category: Medical Plan: I HAD A GOOD TALK WITH HER AGAIN AND STRESS THAT SHE SHOULD QUIT COMPLETELY. BY HER NEXT VISIT I EXPECT HER TO CUT DOWN THE CIGARETTES TO 4 A DAY. Coding Level of Care Code Est Pt Level 3 (09735) Diagnoses COPD (chronic obstructive pulmonary disease) J44.9 Nicotine dependence, cigarettes, uncomplicated F17.210
--- OUTSIDE RECORDS SUMMARY | 2024-06-08 11:14 | XMS_ITS | Clinical Summary ---
Author Organization [facility] Address [address] [place] [address] Care Team Providers Care Etl Developer Name Role Phone Gustavo Dias MD Primary Care Provider [phone] Allergies Active Allergy Reactions Criticality Noted Date [...] (1 of 3 - 19+ 3-dose series) 09/1984 DTaP,Tdap,and Td Vaccines (1 - Tdap) 08/16/1987 Pneumococcal Vaccine: 50+ Years (1 of 1 - PCV) 016 Zoster Vaccines (1 of 2) 08/16/2015 Influenza Vaccine (#1) 2023 Alcohol/Substance Use Screening 04/12/2024 RSV Vaccine (60+ years old a nd patients) (1 - 1-dose 75+ series) 2040 Insurance [employer] Advance Directives Documents on File Type Date Recorded Patient Cyber Defense Forensics Analyst Expl anation MOLST 03/03/2024 6:25 AM 4 Care Teams Etl Developer Relationship Specialty Start Date End Date Gustavo Dias MD [address] [place] [address] [phone] PCP - General Internal Medicine 03/01/24
--- OUTSIDE RECORDS SUMMARY | 2024-06-08 11:14 | XMS_ITS | Referral Summary ---
Author Organization [facility] Address [address] [place] [address] Care Team Providers Care Senior Oracle Developer Name Role Phone Gustavo Dias MD Primary Care Provider [phone] Allergies Active Allergy Reactions Criticality Noted Date [...] - Plan of Treatment Not on file Insurance [employer] Advance Directives Documents on File Type Date Recorded Patient Packaging Sales Eriberto BREAUX 03/03/2024 6:25 AM 4 Care Teams Senior Oracle Developer Relationship Specialty Start Date End Date Gustavo Dias MD [address] [place] [address] [phone] PCP - General Internal Medicine 03/01/24
== END 2024-06-08 10:13 | disposition home or self-care (01) ==
PROVIDERS: PCP Nurse Practitioner Family; Visit Provider Internal Medicine
DX: J44.9 Chronic obstructive pulmonary disease, unspecified (principal); F17.210 Nicotine dependence, cigarettes, uncomplicated
CPT/HCPCS: 99213

== ENCOUNTER 2024-06-08 12:45 | Outpatient (AMB) | payer OTHER, SELFPAY ==
--- NOTE | 2024-06-08 13:01 | MHC.OFFVIS ---
Vital Signs 06/08/24 13:05 Height 5 ft Weight 200 lb BMI 39.1 Intake Visit Reasons: 6WK PO: R MAMADOU w/NE 05/02/24 Intake Note: Rody is a 58 year old female who presents today for a post operative appointment 6 weeks s/p Right MAMADOU 05/02/24. Patient reports that she is doing well, reports no pain. Allergies lansoprazole [Prevacid] Allergy (Severe, Verified 06/08/24 10:12) anaphylaxis omeprazole [From PRILOSEC] Allergy (Severe, Verified 06/08/24 10:12) ANAPHYLAXIS cyclobenzaprine [From Flexeril] Allergy (Intermediate, Verified 06/08/24 10:12) Rash HPI HPI 6WK PO: R MAMADOU w/NE 05/02/24: Details: Rody is a 58 year old female who presents today for a post operative appointment 6 weeks s/p Right MAMADOU 05/02/24. Patient reports that she is doing well, reports no pain. [facility] Medical History Resides in assisted facility Heart failure with preserved ejection fraction Substance abuse Acute exacerbation of chronic obstructive pulmonary disease Lumbar spondylosis Trochanteric bursitis of right hip Obesity Nicotine dependence, cigarettes, uncomplicated History of sepsis Urinary frequency COPD (chronic obstructive pulmonary disease) Exercise hypoxemia Smoker Bilateral hip pain Dyslipidemia Lower back pain Anxiety associated with depression Somatic dysfunction of left sacroiliac joint Surgical History History of section Family History Father Substance use disorder Mother Substance use disorder Mental health disorder Maternal Grandmother Substance use disorder Mental health disorder Social History Household Members: Family Housing: House Housing Other:: currently @ [facility] for rehab Are you a primary child day care teacher to a significant other at home: No Do you presently have visiting nurse or other home services: No Alcohol intake: current Alcohol intake frequency: does not drink Patient Tobacco Use Status: Current everyday Tobacco user Tobacco use type: Cigarette Cigarette Packs Per Day: 0.5 Cigarettes Per Day: 6 Years Smoked: 30 e-Cigarette/Vaping Use: Never Used Second Hand Smoke Exposure: No Substance Use Type: Crack/Cocaine service: No Current occupational status: employed Current occupation: [employer] Cognitive needs: No Hearing needs: No Vision needs: No Physical Exam Vital Signs: BMI result Body Mass Index 39.1 Extrem Other: inc c/d/i nl gait no pain with hip ROM Results Reviewed Results Reviewed: I personally reviewed relevant radiographs. Right MAMADOU in expected post operative position with no hardware complications or evidence of loosening Assessment & Plan Assessment & Plan (1) S/P total right hip arthroplasty: Code(s): Z96.641 - Presence of right artificial hip joint Category: Surgical Plan: Doing well. May progress WBAT with walker/cane. Has not really been TTWB. Feels well. Refilled prn oxy and baclofen which she will decrease over next 6 weeks. May rtw if work is sedentary. Orders: Orders XR pelvis 1-2V Today M25.559 - Pain in unspecified hip Coding Level of Care Code Global (86584) Diagnoses S/P total right hip arthroplasty Z96.641
[2024-06-08 13:05] VITALS: BMI 39.1
--- OUTSIDE RECORDS SUMMARY | 2024-06-08 15:10 | XMS_ITS | Clinical Summary ---
Author Organization [facility] Address [address] [place] [address] Care Team Providers Care Milk Deliverer Name Role Phone Gustavo Dias MD Primary Care Provider [phone] Allergies Active Allergy Reactions Criticality Noted Date [...] Documents on File Type Date Recorded Patient Environmental Protection Officer Expl anation MOLST 03/03/2024 6:25 AM 4 Care Teams Milk Deliverer Relationship Specialty Start Date End Date Gustavo Dias MD [address] [place] [address] [phone] PCP - General Internal Medicine 03/01/24
--- OUTSIDE RECORDS SUMMARY | 2024-06-08 15:10 | XMS_ITS | Referral Summary ---
Author Organization [facility] Address [address] [place] [address] Care Team Providers Care Construction Cost Estimator Name Role Phone Gustavo Dias MD Primary Care Provider [phone] Allergies Active Allergy Reactions Criticality Noted Date [...] Documents on File Type Date Recorded Patient Flight Information Expediter Eriberto BREUAX 03/03/2024 6:25 AM 4 Care Teams Construction Cost Estimator Relationship Specialty Start Date End Date Gustavo Dias MD [address] [place] [address] [phone] PCP - General Internal Medicine 03/01/24
== END 2024-06-08 13:20 | disposition home or self-care (01) ==
PROVIDERS: PCP Nurse Practitioner Family; Visit Provider Orthopaedic Surgery
DX: Z96.641 Presence of right artificial hip joint (principal)
CPT/HCPCS: 99024

== ENCOUNTER → 2024-06-08 12:49 | Outpatient (BNV) | payer OTHER, SELFPAY | PROVIDERS: PCP Nurse Practitioner Family; Visit Provider Specialist | DX: M25.559 Pain in unspecified hip (principal) | CPT/HCPCS: 72170 ==

== ENCOUNTER 2024-06-17 18:28 | Inpatient (IN) | payer OTHER, SELFPAY ==
[2024-06-17] VITALS (7 sets, daily range): BP systolic 104–136; BP diastolic 65–96; PULSE 99–108; RESP 17–20; TEMP 37–37.3; O2SAT 92–96; BMI 40.2
--- NOTE | ~2024-06-17 | XR_ITS ---
CLINICAL HISTORY: Cough, shortness of breath, hypoxia, R O pneumonia 1 view chest x-ray Comparison: Chest CT from 02/15/2024. Findings: Persistent elevation of the left hemidiaphragm with worsening bibasilar atelectasis/pneumonitis. Mild pulmonary edema is also considered given new interstitial opacities and redemonstration of the partially imaged cardiomegaly. No pneumothorax Degenerative changes include imaged AC joints. Calcific tendinitis noted adjacent to the left humerus. IMPRESSION: Bibasilar atelectasis/consolidation. This document has been electronically signed by: Jared Maciel MD on 06/17/2024 20:09:02
--- NOTE | 2024-06-17 19:01 | ECG_ITS ---
Test Reason : SOB Blood Pressure : */* mmHG Vent. Rate : 103 BPM Atrial Rate : 103 BPM P-R Int : 124 ms QRS Dur : 80 ms QT Int : 342 ms P-R-T Axes : 52 9 11 degrees QTcB Int : 448 ms Sinus tachycardia Otherwise normal ECG When compared with ECG of 15-Feb-2024 20:14, Premature ventricular complexes are no longer Present Referred By: Generic ED Physician Electronically Signed By: PAOLA TOWNSEND MD
--- NOTE | 2024-06-17 19:10 | ED_ITS ---
HPI - SOB/Dyspnea General Chief Complaint: Dyspnea Stated Complaint: fall, no loc Time Seen by Provider: 06/17/24 19:09 Source: patient Mode of arrival: EMS Limitations: no limitations History of Present Illness ED Provider: Dr. Tito Padgett HPI Narrative: 58-year-old female with a history HFpEF, COPD, 6 weeks status post right hip replacement who presents shortness of breath, wheezing, productive cough. Patient states she has been having shortness of breath with dyspnea on exertion for proximally 1 week. She denied fever but she was had intermittent chills. She states that today she developed a cough which is productive of thick sputum. Patient has been using her nebulizer treatments 3 to 4 times a day with no relief for symptoms. The patient was shortness of breath got worse therefore she came to emergency department by ambulance. Patient did not receive any treatment during transport but was placed on oxygen 2 L via nasal cannula. Patient was not wear oxygen at home and the nurse took the patient's oxygen off and her O2 saturation went down to 80%. On 2 L of oxygen via nasal cannula she went up to 92%. Related Data Home Medications ?Medication ?Instructions ?Recorded ?Confirmed gabapentin 600 mg tablet 600 mg PO TID 03/15/24 06/18/24 empagliflozin 10 mg tablet 10 mg PO DAILY 04/11/24 06/18/24 (Jardiance) furosemide 20 mg tablet 20 mg PO DAILY 04/11/24 06/18/24 gabapentin 100 mg capsule 100 mg PO TID 04/11/24 06/18/24 venlafaxine 50 mg tablet 150 mg PO BID 06/18/24 06/18/24 Previous Rx's ?Medication ?Instructions ?Recorded Bremaurytri Aerosphere 160 2 inh inhalation BID #32.1 grams 09/16/23 mcg-9mcg-4.8mcg/actuation HFA aerosol inhaler (qywcxjaoqr-[id number]) clonidine HCl 0.1 mg tablet 0.1 mg PO BID #180 tabs 02/03/24 walker #1 ea 03/30/24 acetaminophen 325 mg tablet 650 mg (2 x 325 mg) PO Q6H PRN 05/05/24 Pain, Mild 1-3,Fever,Headache 30 days #240 tabs celecoxib 200 mg capsule 200 mg PO BID 30 days #60 caps 05/05/24 fluticasone propionate 50 1 spray intranasal Q12H #16 grams 05/30/24 mcg/actuation nasal spray,suspension baclofen 5 mg tablet 5 mg PO BID PRN muscle spasm #30 06/08/24 tabs oxycodone 5 mg tablet 5 mg PO Q12H PRN Pain, 06/08/24 Moderate(Pain Scale 4-6) #30 tabs ipratropium 0.5 mg-albuterol 3 mg 3 ml inhalation RQ4H WHILE AWAKE 06/12/24 (2.5 mg base)/3 mL nebulization PRN shortness of breath or soln wheezing #60 mL trazodone 50 mg tablet 50 mg PO BEDTIME PRN sleep #30 tabs 06/12/24 Allergies Allergy/AdvReac Type Severity Reaction Status Date / Time lansoprazole [Prevacid] Allergy Severe anaphylaxis Verified 06/17/24 18:40 cyclobenzaprine Allergy Intermediate Rash Verified 06/17/24 18:40 [From Flexeril] Review of Systems 2 Review of Systems: Yes all other systems are reviewed and are negative [facility] Past Medical History [facility] Narrative: Social history: The patient smokes 6 cigarettes per day times 30 years. She denies tobacco and alcohol use. Medical History Resides in assisted facility Heart failure with preserved ejection fraction Substance abuse Acute exacerbation of chronic obstructive pulmonary disease Lumbar spondylosis Trochanteric bursitis of right hip Obesity Nicotine dependence, cigarettes, uncomplicated History of sepsis Urinary frequency COPD (chronic obstructive pulmonary disease) Exercise hypoxemia Smoker Bilateral hip pain Dyslipidemia Lower back pain Anxiety associated with depression Somatic dysfunction of left sacroiliac joint Surgical History History of section Family History Family History Father Substance use disorder Mother Substance use disorder Mental health disorder Maternal Grandmother Substance use disorder Mental health disorder Social History Social History Household Members: Family Housing: House Housing Other:: currently @ [facility] for rehab Are you a primary care analyst to a significant other at home: No Do you presently have visiting nurse or other home services: No Alcohol intake: former Patient Tobacco Use Status: Current everyday Tobacco user Tobacco use type: Cigarette Cigarette Packs Per Day: 0.5 Cigarettes Per Day: 6 Years Smoked: 30 e-Cigarette/Vaping Use: Never Used Second Hand Smoke Exposure: No Substance Use Type: Crack/Cocaine service: No Current occupational status: employed Current occupation: [employer] Cognitive needs: No Hearing needs: No Vision needs: No Physical Exam 2 Vital Signs: Vital Signs: Last Vital Signs Temp 97.6 F 06/18/24 08:58 Pulse 97 06/18/24 08:58 Resp 17 06/18/24 08:58 BP 118/78 06/18/24 08:58 Pulse Ox 91 L 06/18/24 08:58 O2 Del Method Nasal Cannula 06/18/24 08:58 O2 Flow Rate 3 06/18/24 08:58 Oxygen Flow Rate 2 06/17/24 18:38 BMI result Body Mass Index 40.2 Vital signs revealed an elevated heart rate of 108 with an initial O2 saturation on room air was 80% and of 92% on 2 L oxygen via nasal cannula Exam: General: Awake, alert in no distress Head: Normocephalic, atraumatic EENT: PERRL, Lids normal, sclera normal, conjunctiva normal, nose normal , ears normal, throat without erythema or exudates Neck: Supple, no adenopathy Lung: Patient has diffuse wheezing at the end of expiration with bilateral rales at the bases and diffuse rhonchi Chest: symmetric movement, nontender Heart: regular rate and rhythm, normal S1, S2 no murmurs or rubs Abdomen: soft, non-tender, nondistended, normal bowel sounds Back: no vertebral tenderness, no CVAT Extremities: no deformities, moves all extremities symmetrically Neuro: Awake, alert, oriented, normal speech, cranial nerves intact, moves all extremities symmetrically Psych: Pleasant, cooperative Medications Administered Generic Name Dose Route Start Last Admin Trade Name Freq PRN Reason Stop Dose Admin Enoxaparin Sodium 40 mg 06/17/24 23:00 06/17/24 22:58 Enoxaparin Sodium 40 Mg/0.4 Ml Syringe SUBCUT 40 mg Q24H PER Administration Sodium Chloride 3 ml 06/18/24 00:00 06/17/24 23:00 0.9 % Sodium Chloride Flush 3 Ml Syringe IVFLUSH 3 ml QSHIFT PER Administration Discontinued Medications Generic Name Dose Route Start Last Admin Trade Name Amairani PRN Reason Stop Dose Admin Ceftriaxone Sodium 1 gm 06/17/24 20:34 06/17/24 20:55 Ceftriaxone Sodium 1 Gm Vial IVPUSH 06/17/24 20:35 1 gm ONCE ONE Administration Albuterol Sulfate 2.5 mg/ 0 mg 06/17/24 19:53 06/17/24 19:57 Albuterol/Ipratropium 3 ml INHALE 06/17/24 19:54 3.5 dose ONCE ONE Administration Furosemide 40 mg 06/17/24 20:34 06/17/24 20:54 Furosemide 40 Mg/4 Ml Vial IVPUSH 06/17/24 20:35 40 mg STAT STA Administration Protocol Azithromycin 500 mg/ Sodium 250 mls @ 125 mls/hr 06/17/24 20:34 06/17/24 23:11 Chloride IV 06/17/24 22:33 Infused ONCE ONE Infusion Methylprednisolone Sodium Succinate 125 mg 06/17/24 19:22 06/17/24 19:53 Methylprednisolone Sod Succ 125 Mg/2 Ml Vial IVPUSH 06/17/24 19:23 125 mg ONCE ONE Administration Medical Decision Making Medical Decision Making MDM Narrative: 58-year-old female with a history HFpEF, COPD, 6 weeks status post right hip replacement who presents shortness of breath, wheezing, productive cough. Patient states she has been having shortness of breath with dyspnea on exertion for proximally 1 week. She denied fever but she was had intermittent chills. She states that today she developed a cough which is productive of thick sputum. Patient has been using her nebulizer treatments 3 to 4 times a day with no relief for symptoms. The patient was shortness of breath got worse therefore she came to emergency department by ambulance. In the emergency department on room air her O2 saturation was 80% and on 2 L O2 saturation was 92%. Patient also had an elevated heart rate of 108 beats per minute lung exam revealed rales at the bases with diffuse wheezing and diffuse rhonchi. 19:32 Differential diagnosis: ?Includes but is not limited to exacerbation of chronic lung disease, pneumonia, bronchitis, pulmonary edema, myocardial infarction, myocardial ischemia electrolyte abnormalities, anemia Course: 19:33 I ordered Solu-Medrol 125 mg IV and bronchodilator protocol and she was received albuterol 5.0 mg and ipratropium 0.5 mg nebulized. 20:34 My interpretation patient's laboratory evaluation is as follows: WBC elevated 12,700. CMP was normal. BNP was elevated 336. Venous pH was elevated at 7.50, pCO2 58 and bicarb 46. High sensitive troponin I was detectable but not elevated at 10.3. Repeat is due at 22:45 hours. Lactic acid was normal. Chest x-ray revealed cardiomegaly with bilateral lower lobe infiltrates which could be consistent with CHF versus pneumonia. Given this finding I did order ceftriaxone 1 g IV and azithromycin 500 mg IV to treat the patient for possible community acquired pneumonia. The patient was on furosemide 20 mg daily and I ordered furosemide 40 mg IV. Patient was 12 EKG did not reveal any evidence for myocardial infarction or ischemia. Repeat high sensitive troponin is pending. I did discuss admission over tiger text with the covering hospitalist, Dr. Kc. Admission/Observation Consideration of admission/observation: Escalation of care including admission/observation considered (Yes) Lab Data 06/18/24 05:08 06/18/24 05:08 Labs: Lab Results 06/17/24 06/17/24 06/17/24 Range/Units 19:43 19:43 19:43 WBC 12.7 H (4.8-10.8) X10*3/uL RBC 4.51 D (4.20-5.50) X10*6/uL Hgb 12.4 D (12.0-16.0) g/dl Hct 40.1 D (37.0-47.0) % MCV 88.9 (80.0-98.0) fL MCH 27.5 (27.0-33.0) pg MCHC 30.9 L (31.0-35.0) g/dl RDW 16.8 H (11.0-16.0) % Plt Count 286 D (160-400) X10*3/uL MPV 9.5 (9.4-12.3) fL Immature Gran % (Auto) 0.6 H (0.0-0.4) % Neut % (Auto) 75.6 H (45-73) % Lymph % (Auto) 13.6 L (20-40) % [place] % (Auto) 8.4 (2-11) % Eos % (Auto) 1.5 (0-4) % Baso % (Auto) 0.3 (0-2) % Lymph # (Auto) 1.7 (1.2-4.9) X10*3/uL [place] # (Auto) 1.1 (0.1-1.2) X10*3/uL Eos # (Auto) 0.2 (0.0-0.4) X10*3/uL Baso # (Auto) 0.0 (0.0-0.2) X10*3/uL Abs Immat Gran (auto) 0.08 H (0.00-0.03) X10*3/uL Absolute Neuts (auto) 9.6 H (2.0-8.3) x10*3/uL Absolute Nucleated RBC 0.000 (0.0-0.012) X10*3/uL Nucleated RBC % (auto) 0.0 (0.0-0.2) /100WBC VBG pH (7.32-7.43) VBG pCO2 mmHg VBG pO2 mmHg VBG HCO3 (22-26) mmol/L VBG O2 Saturation % VBG Base Excess mmol/L Sodium Cancelled 142 Potassium Cancelled 4.4 D Chloride Cancelled Carbon Dioxide Anion Gap BUN Creatinine Estim Creat Clear Calc Estimated GFR Random Glucose Lactic Acid (0.5-2.0) mmol/L Calcium Magnesium (1.6-2.6) mg/dL Total Bilirubin (0.0-1.0) mg/dL Direct Bilirubin (0.0-0.5) mg/dL AST (5-31) U/L ALT (0-31) U/L Alkaline Phosphatase (39-117) U/L Troponin I High Sens (<3.5-17.0) ng/L B-Natriuretic Peptide (<100) pg/mL Total Protein (6.5-8.0) g/dL Albumin (3.5-5.0) g/dL Procalcitonin ng/mL Influenza Type A (PCR) (Negative) Influenza Type B (PCR) (Negative) RSV RNA Qual (PCR) (Negative) SARS-CoV-2 RNA (RT-PCR) (Negative) 06/17/24 06/17/24 06/17/24 Range/Units 19:43 19:43 19:43 WBC (4.8-10.8) X10*3/uL RBC (4.20-5.50) X10*6/uL Hgb (12.0-16.0) g/dl Hct (37.0-47.0) % MCV (80.0-98.0) fL MCH (27.0-33.0) pg MCHC (31.0-35.0) g/dl RDW (11.0-16.0) % Plt Count (160-400) X10*3/uL MPV (9.4-12.3) fL Immature Gran % (Auto) (0.0-0.4) % Neut % (Auto) (45-73) % Lymph % (Auto) (20-40) % [place] % (Auto) (2-11) % Eos % (Auto) (0-4) % Baso % (Auto) (0-2) % Lymph # (Auto) (1.2-4.9) X10*3/uL [place] # (Auto) (0.1-1.2) X10*3/uL Eos # (Auto) (0.0-0.4) X10*3/uL Baso # (Auto) (0.0-0.2) X10*3/uL Abs Immat Gran (auto) (0.00-0.03) X10*3/uL Absolute Neuts (auto) (2.0-8.3) x10*3/uL Absolute Nucleated RBC (0.0-0.012) X10*3/uL Nucleated RBC % (auto) (0.0-0.2) /100WBC VBG pH (7.32-7.43) VBG pCO2 mmHg VBG pO2 mmHg VBG HCO3 (22-26) mmol/L VBG O2 Saturation % VBG Base Excess mmol/L Sodium Potassium Chloride 105 Carbon Dioxide Cancelled 27 Anion Gap Cancelled 14 BUN Cancelled Creatinine Estim Creat Clear Calc Estimated GFR Random Glucose Lactic Acid (0.5-2.0) mmol/L Calcium Magnesium (1.6-2.6) mg/dL Total Bilirubin (0.0-1.0) mg/dL Direct Bilirubin (0.0-0.5) mg/dL AST (5-31) U/L ALT (0-31) U/L Alkaline Phosphatase (39-117) U/L Troponin I High Sens (<3.5-17.0) ng/L B-Natriuretic Peptide (<100) pg/mL Total Protein (6.5-8.0) g/dL Albumin (3.5-5.0) g/dL Procalcitonin ng/mL Influenza Type A (PCR) (Negative) Influenza Type B (PCR) (Negative) RSV RNA Qual (PCR) (Negative) SARS-CoV-2 RNA (RT-PCR) (Negative) 06/17/24 06/17/24 06/17/24 Range/Units 19:43 19:43 19:43 WBC (4.8-10.8) X10*3/uL RBC (4.20-5.50) X10*6/uL Hgb (12.0-16.0) g/dl Hct (37.0-47.0) % MCV (80.0-98.0) fL MCH (27.0-33.0) pg MCHC (31.0-35.0) g/dl RDW (11.0-16.0) % Plt Count (160-400) X10*3/uL MPV (9.4-12.3) fL Immature Gran % (Auto) (0.0-0.4) % Neut % (Auto) (45-73) % Lymph % (Auto) (20-40) % [place] % (Auto) (2-11) % Eos % (Auto) (0-4) % Baso % (Auto) (0-2) % Lymph # (Auto) (1.2-4.9) X10*3/uL [place] # (Auto) (0.1-1.2) X10*3/uL Eos # (Auto) (0.0-0.4) X10*3/uL Baso # (Auto) (0.0-0.2) X10*3/uL Abs Immat Gran (auto) (0.00-0.03) X10*3/uL Absolute Neuts (auto) (2.0-8.3) x10*3/uL Absolute Nucleated RBC (0.0-0.012) X10*3/uL Nucleated RBC % (auto) (0.0-0.2) /100WBC VBG pH (7.32-7.43) VBG pCO2 mmHg VBG pO2 mmHg VBG HCO3 (22-26) mmol/L VBG O2 Saturation % VBG Base Excess mmol/L Sodium Potassium Chloride Carbon Dioxide Anion Gap BUN 15 Creatinine Cancelled 0.59 Estim Creat Clear Calc Cancelled 110.3 Estimated GFR Cancelled Random Glucose Lactic Acid (0.5-2.0) mmol/L Calcium Magnesium (1.6-2.6) mg/dL Total Bilirubin (0.0-1.0) mg/dL Direct Bilirubin (0.0-0.5) mg/dL AST (5-31) U/L ALT (0-31) U/L Alkaline Phosphatase (39-117) U/L Troponin I High Sens (<3.5-17.0) ng/L B-Natriuretic Peptide (<100) pg/mL Total Protein (6.5-8.0) g/dL Albumin (3.5-5.0) g/dL Procalcitonin ng/mL Influenza Type A (PCR) (Negative) Influenza Type B (PCR) (Negative) RSV RNA Qual (PCR) (Negative) SARS-CoV-2 RNA (RT-PCR) (Negative) 06/17/24 06/17/24 06/17/24 Range/Units 19:43 19:43 19:43 WBC (4.8-10.8) X10*3/uL RBC (4.20-5.50) X10*6/uL Hgb (12.0-16.0) g/dl Hct (37.0-47.0) % MCV (80.0-98.0) fL MCH (27.0-33.0) pg MCHC (31.0-35.0) g/dl RDW (11.0-16.0) % Plt Count (160-400) X10*3/uL MPV (9.4-12.3) fL Immature Gran % (Auto) (0.0-0.4) % Neut % (Auto) (45-73) % Lymph % (Auto) (20-40) % [place] % (Auto) (2-11) % Eos % (Auto) (0-4) % Baso % (Auto) (0-2) % Lymph # (Auto) (1.2-4.9) X10*3/uL [place] # (Auto) (0.1-1.2) X10*3/uL Eos # (Auto) (0.0-0.4) X10*3/uL Baso # (Auto) (0.0-0.2) X10*3/uL Abs Immat Gran (auto) (0.00-0.03) X10*3/uL Absolute Neuts (auto) (2.0-8.3) x10*3/uL Absolute Nucleated RBC (0.0-0.012) X10*3/uL Nucleated RBC % (auto) (0.0-0.2) /100WBC VBG pH (7.32-7.43) VBG pCO2 mmHg VBG pO2 mmHg VBG HCO3 (22-26) mmol/L VBG O2 Saturation % VBG Base Excess mmol/L Sodium Potassium Chloride Carbon Dioxide Anion Gap BUN Creatinine Estim Creat Clear Calc Estimated GFR > 60 Random Glucose Cancelled 104 Lactic Acid 0.9 (0.5-2.0) mmol/L Calcium Cancelled 8.9 Magnesium 2.1 (1.6-2.6) mg/dL Total Bilirubin 0.3 (0.0-1.0) mg/dL Direct Bilirubin 0.1 (0.0-0.5) mg/dL AST 26 (5-31) U/L ALT 18 (0-31) U/L Alkaline Phosphatase 94 (39-117) U/L Troponin I High Sens 10.3 D (<3.5-17.0) ng/L B-Natriuretic Peptide (<100) pg/mL Total Protein 6.3 L (6.5-8.0) g/dL Albumin 3.5 (3.5-5.0) g/dL Procalcitonin 0.03 ng/mL Influenza Type A (PCR) NEGATIVE (Negative) Influenza Type B (PCR) NEGATIVE (Negative) RSV RNA Qual (PCR) NEGATIVE (Negative) SARS-CoV-2 RNA (RT-PCR) NEGATIVE (Negative) 06/17/24 06/17/24 Range/Units 19:44 19:50 WBC (4.8-10.8) X10*3/uL RBC (4.20-5.50) X10*6/uL Hgb (12.0-16.0) g/dl Hct (37.0-47.0) % MCV (80.0-98.0) fL MCH (27.0-33.0) pg MCHC (31.0-35.0) g/dl RDW (11.0-16.0) % Plt Count (160-400) X10*3/uL MPV (9.4-12.3) fL Immature Gran % (Auto) (0.0-0.4) % Neut % (Auto) (45-73) % Lymph % (Auto) (20-40) % [place] % (Auto) (2-11) % Eos % (Auto) (0-4) % Baso % (Auto) (0-2) % Lymph # (Auto) (1.2-4.9) X10*3/uL [place] # (Auto) (0.1-1.2) X10*3/uL Eos # (Auto) (0.0-0.4) X10*3/uL Baso # (Auto) (0.0-0.2) X10*3/uL Abs Immat Gran (auto) (0.00-0.03) X10*3/uL Absolute Neuts (auto) (2.0-8.3) x10*3/uL Absolute Nucleated RBC (0.0-0.012) X10*3/uL Nucleated RBC % (auto) (0.0-0.2) /100WBC VBG pH 7.50 H (7.32-7.43) VBG pCO2 58 mmHg VBG pO2 41 mmHg VBG HCO3 46 H (22-26) mmol/L VBG O2 Saturation 71.0 % VBG Base Excess 20.2 mmol/L Sodium Potassium Chloride Carbon Dioxide Anion Gap BUN Creatinine Estim Creat Clear Calc Estimated GFR Random Glucose Lactic Acid (0.5-2.0) mmol/L Calcium Magnesium (1.6-2.6) mg/dL Total Bilirubin (0.0-1.0) mg/dL Direct Bilirubin (0.0-0.5) mg/dL AST (5-31) U/L ALT (0-31) U/L Alkaline Phosphatase (39-117) U/L Troponin I High Sens (<3.5-17.0) ng/L B-Natriuretic Peptide 336 H (<100) pg/mL Total Protein (6.5-8.0) g/dL Albumin (3.5-5.0) g/dL Procalcitonin ng/mL Influenza Type A (PCR) (Negative) Influenza Type B (PCR) (Negative) RSV RNA Qual (PCR) (Negative) SARS-CoV-2 RNA (RT-PCR) (Negative) Independent Interpretation I performed an independent interpretation of an: EKG and Plain X-Ray Interpretation: My interpretation patient's chest x-ray is as follows: Suspect cardiomegaly with bilateral lower lobe infiltrates pulmonary edema verses pneumonia. My interpretation patient was 12 EKG done on 06/17/2024 at 19:34 hours is as follows: Sinus tachycardia with a rate of 103, normal SD interval, QRS duration QTC interval, no ST segment elevation, no ST segment depression, no significant T-wave abnormalities, no PACs, no PVCs. Radiology Impression Discussion of test interpretation with radiology: I have reviewed the radiologist's reading. Radiologist Impression: 1 view chest x-ray Comparison: Chest CT from 02/15/2024. Findings: Persistent elevation of the left hemidiaphragm with worsening bibasilar atelectasis/pneumonitis. Mild pulmonary edema is also considered given new interstitial opacities and redemonstration of the partially imaged cardiomegaly. No pneumothorax Degenerative changes include imaged AC joints. Calcific tendinitis noted adjacent to the left humerus. IMPRESSION: Bibasilar atelectasis/consolidation. This document has been electronically signed by: Jared Maciel MD on 06/17/2024 20:09:02 External Record Review External record reviewed: Inpatient record Chronic Conditions Patient?s care impacted by: Other ( COPD) Critical Care Time Critical Care Time Critical Care Time: Yes Total Critical Care Time: 45 Attestation: Critical Care: The patient was critically ill with a high probability of imminent or life threatening deterioration. I spent greater than 30 minutes of discontinuous time evaluating the patient,delivering critical care at the bedside, discussing and evaluating pertinent data with consultants. Critical care time does not include time spent performing separately billable procedures or teaching. Total time spent performing critical care was 45 minutes. Discharge Plan Discharge Clinical Impression: Pneumonia, Pulmonary edema Patient Disposition: Admitted As Inpatient Interventions: Admission Worksheet (ED) Last Done: 06/18/24 05:39 Discharge Date/Time: 06/18/24 08:53
[2024-06-17 19:51] LABS: MANUAL DIFF FLAG NO
[2024-06-17] MEDS: methylPREDNISolone Sod Succ 125 MG/2 ML VIAL IVPUSH (19:53)
[2024-06-17 19:55] LABS: Venous Blood Gas Refer to POC result
[2024-06-17 19:55] LABS: VBG Base Excess 20.2 mmol/L; VBG HCO3 46 mmol/L (22-26); VBG pCO2 58 mmHg; VBG pO2 41 mmHg
[2024-06-17] MEDS: Albuterol Sulfate 2.5 MG, Albuterol/Iprat 2.5/0.5MG 3 ML 3 ML INHALE (19:57)
--- NOTE | 2024-06-17 20:05 | PC.NURSE ---
Luke [phone] kelly
[2024-06-17 20:13] LABS: Lactic Acid 0.9 mmol/L (0.5-2.0)
[2024-06-17 20:16] LABS: Basophils Percent Auto 0.3 % (0-2); Eosinophils Absolute Auto 0.2 X10*3/uL (0.0-0.4); Eosinophils Percent Auto 1.5 % (0-4); Hematocrit 40.1 % (37.0-47.0); Hemoglobin 12.4 g/dl (12.0-16.0); Imm Gran Abs Auto 0.08 X10*3/uL (0.00-0.03); Imm Gran Pct Auto 0.6 % (0.0-0.4); Lymphocytes Absolute Auto 1.7 X10*3/uL (1.2-4.9); Lymphocytes Percent Auto 13.6 % (20-40); Mean Corpuscular HGB Conc 30.9 g/dl (31.0-35.0); Mean Corpuscular Hemoglobin 27.5 pg (27.0-33.0); Mean Corpuscular Volume 88.9 fL (80.0-98.0); Mean Platelet Volume 9.5 fL (9.4-12.3); Monocytes Absolute Auto 1.1 X10*3/uL (0.1-1.2); Monocytes Percent Auto 8.4 % (2-11); Neutrophils Absolute Auto 9.6 x10*3/uL (2.0-8.3); Neutrophils Percent Auto 75.6 % (45-73); Platelet Count 286 X10*3/uL (160-400); Red Blood Count 4.51 X10*6/uL (4.20-5.50); Red Cell Distribution Width 16.8 % (11.0-16.0); White Blood Count 12.7 X10*3/uL (4.8-10.8)
[2024-06-17 20:19] LABS: Alanine Aminotransferase 18 U/L (0-31); Albumin Level 3.5 g/dL (3.5-5.0); Alkaline Phosphatase 94 U/L (39-117); Anion Gap 14 (12-20); Aspartate Amino Transferase 26 U/L (5-31); Bilirubin Direct 0.1 mg/dL (0.0-0.5); Bilirubin Total 0.3 mg/dL (0.0-1.0); Blood Urea Nitrogen 15 mg/dL (9-16); Calcium 8.9 mg/dL (8.4-10.2); Carbon Dioxide 27 mmol/L (22-29); Chloride 105 mmol/L (96-108); Creatinine Clr Calc Pharmacy 110.3; Estimated Glomerular Filt Rate > 60; Glucose Random 104 mg/dL (60-115); Magnesium 2.1 mg/dL (1.6-2.6); Potassium 4.4 mmol/L (3.3-5.1); Sodium 142 mmol/L (135-145); Total Protein 6.3 g/dL (6.5-8.0)
[2024-06-17 20:22] LABS: B Type Natriuretic Peptide 336 pg/mL (<100)
[2024-06-17 20:27] LABS: Troponin-I High Sensitivity 10.3 ng/L (<3.5-17.0)
[2024-06-17 20:43] LABS: Influenza A PCR NEGATIVE (Negative); Influenza B PCR NEGATIVE (Negative); Resp Syncy Virus RNA Qual PCR NEGATIVE (Negative); SARS COV2 PCR INHOUSE NEGATIVE (Negative)
[2024-06-17] MEDS: Furosemide 40 MG/4 ML VIAL IVPUSH (20:54)
[2024-06-17] MEDS: cefTRIAXone sodium 1 GM VIAL IVPUSH (20:55)
[2024-06-17] MEDS: Azithromycin 500 MG in 0.9 % Sodium Chloride 250 ML 125 MG IV (21:03)
--- NOTE | 2024-06-17 22:35 | P.HPHOSP_ITS ---
History of Present Illness Date of Service: 06/17/24 Attending physician on admission: Woody Kc Chief Complaint: Shortness of breath x 'several weeks' Patient is a 58-year-old obese female with a history HFpEF, vitamin D deficiency, COPD and who is 6 weeks status post right hip replacement who presents to the emergency room from home complaining of progressively worsening shortness of breath that is worse with exertion and with associated wheezing and a productive cough for almost a week now. Onset was subtle but they have been progressively getting worse and today developed a cough that is productive of thick phlegm. She denies any associated chest pain, night sweats, palpitations, fevers or chills. She has been using her nebulizer treatments several times a day with no relief hence her decision to activate emergency services and come in for evaluation. She was brought in by EMS while on 2 L of supplemental oxygen by nasal cannula. However when she got in the emergency room on the 2, oxygen her saturations dropped to 80%. This improved back to 92% when she was placed back on 2 L of oxygen. Initial vital signs were notable for a low-grade fever 99.1? F, tachycardia and with a heart rate of 108 beats per minute. Initial blood work done showed a leukocytosis of 12.7 K, BNP of 336 and a normal high sensitivity troponin I while a chest x-ray done showed bibasilar atelectasis. An assessment of COPD exacerbation was made and she was started on steroids, DuoNeb updrafts and empiric antibiotics. When I got to see her, she was comfortable in bed and reported feeling much better than she did on arrival. Review of Systems 2 Review of Systems: Yes all other systems are reviewed and are negative [facility] Medical History Resides in long-term facility Heart failure with preserved ejection fraction Substance abuse Acute exacerbation of chronic obstructive pulmonary disease Lumbar spondylosis Trochanteric bursitis of right hip Obesity Nicotine dependence, cigarettes, uncomplicated History of sepsis Urinary frequency COPD (chronic obstructive pulmonary disease) Exercise hypoxemia Smoker Bilateral hip pain Dyslipidemia Lower back pain Anxiety associated with depression Somatic dysfunction of left sacroiliac joint Family History Father Substance use disorder Mother Substance use disorder Mental health disorder Maternal Grandmother Substance use disorder Mental health disorder Surgical History History of section Social History Household Members: Family Housing: House Housing Other:: currently @ [facility] for rehab Are you a primary behavioral health care coordinator to a significant other at home: No Do you presently have visiting nurse or other home services: No Alcohol intake: former Patient Tobacco Use Status: Current everyday Tobacco user Tobacco use type: Cigarette Cigarette Packs Per Day: 0.5 Cigarettes Per Day: 6 Years Smoked: 30 Smoked in Last 30 Days: Yes e-Cigarette/Vaping Use: Never Used Second Hand Smoke Exposure: No Use of substances other than those prescribed or required for medical reasons: No Substance Use Type: Crack/Cocaine Advance Directives: No Advance Directives Information Provided: No Nutrition Risks: No Nutritional Risk service: No Current occupational status: employed Current occupation: [employer] Cognitive needs: No Hearing needs: No Vision needs: No Meds Allergies Allergy/AdvReac Type Severity Reaction Status Date / Time lansoprazole [Prevacid] Allergy Severe anaphylaxis Verified 06/17/24 18:40 cyclobenzaprine Allergy Intermediate Rash Verified 06/17/24 18:40 [From Flexeril] Home Medications ?Medication ?Instructions ?Recorded ?Confirmed ?Last Taken ?Type gabapentin 600 mg tablet 600 mg PO TID 03/15/24 05/18/24 05/01/24 History venlafaxine 150 mg 150 mg PO BID 03/15/24 05/18/24 05/01/24 History capsule,extended release 24 hr empagliflozin 10 mg tablet 10 mg PO DAILY 04/11/24 05/18/24 04/28/24 History (Jardiance) furosemide 20 mg tablet 20 mg PO DAILY 04/11/24 05/18/24 05/01/24 History gabapentin 100 mg capsule 100 mg PO TID 04/11/24 05/18/24 05/01/24 History Physical Exam 2 Vital Signs and Narrative: Vital Signs: Last Vital Signs Temp 99.1 F 06/17/24 18:38 Pulse 104 H 06/17/24 20:52 Resp 19 06/17/24 20:52 BP 116/75 06/17/24 20:54 Pulse Ox 95 06/17/24 20:52 O2 Del Method Nasal Cannula 06/17/24 20:52 O2 Flow Rate 3 06/17/24 20:52 Oxygen Flow Rate 2 06/17/24 18:38 BMI result Body Mass Index 40.2 General: Well nourished. Awake, alert and oriented x 4. No apparent distress Eyes: No pallor or jaundice. PERRLA, EOMI HENT: Dry oral mucus membranes. No oropharyngeal lesions. Neck: Supple. No cervical adenopathy. No JVD Cardiovascular: Regular rate and rhythm. Normal heart sounds. No murmurs, rubs or gallops. No JVD. No peripheral edema. Respiratory: Coarse bilateral breath sound with crackles more so in the right base. Otherwise with normal respiratory effort & no accessory muscle use. Gastrointestinal: Abdomen is obese, flabby, soft, non-tender, non-distended. Normoactive bowel sounds in all quadrants. No hepatosplenomegaly Extremities: No edema. No calf tenderness. Good peripheral pulses Skin: Warm/Dry. No rashes. No mottling. Capillary refill is < 2 seconds Neurological: AAOx4. Intact speech & cognition. Normal gait & balance. CN II - XII grossly intact but not individually tested. No motor or sensory deficits Hematologic: No bleeding. No ecchymosis. No swollen or tender lymph nodes. Psychiatric: Cooperative. Appropriate mood and affect. Results Labs 06/18/24 05:08 06/18/24 05:08 Labs: Laboratory Results - last 24 hr 06/17/24 06/17/24 06/17/24 19:43 19:43 19:43 MCV 88.9 MCH 27.5 MCHC 30.9 L RDW 16.8 H Plt Count 286 D MPV 9.5 Immature Gran % (Auto) 0.6 H Neut % (Auto) 75.6 H Lymph % (Auto) 13.6 L Fleming % (Auto) 8.4 Eos % (Auto) 1.5 Baso % (Auto) 0.3 Lymph # (Auto) 1.7 Fleming # (Auto) 1.1 Eos # (Auto) 0.2 Baso # (Auto) 0.0 Abs Immat Gran (auto) 0.08 H Absolute Neuts (auto) 9.6 H Absolute Nucleated RBC 0.000 Nucleated RBC % (auto) 0.0 VBG pH VBG pCO2 VBG pO2 VBG HCO3 VBG O2 Saturation VBG Base Excess Anion Gap Cancelled 14 Estim Creat Clear Calc Cancelled 110.3 Estimated GFR Cancelled Random Glucose Lactic Acid Calcium Magnesium Total Bilirubin Direct Bilirubin AST ALT Alkaline Phosphatase B-Natriuretic Peptide Total Protein Albumin Influenza Type A (PCR) Influenza Type B (PCR) RSV RNA Qual (PCR) SARS-CoV-2 RNA (RT-PCR) 06/17/24 06/17/24 06/17/24 19:43 19:43 19:43 MCV MCH MCHC RDW Plt Count MPV Immature Gran % (Auto) Neut % (Auto) Lymph % (Auto) Fleming % (Auto) Eos % (Auto) Baso % (Auto) Lymph # (Auto) Fleming # (Auto) Eos # (Auto) Baso # (Auto) Abs Immat Gran (auto) Absolute Neuts (auto) Absolute Nucleated RBC Nucleated RBC % (auto) VBG pH VBG pCO2 VBG pO2 VBG HCO3 VBG O2 Saturation VBG Base Excess Anion Gap Estim Creat Clear Calc Estimated GFR > 60 Random Glucose Cancelled 104 Lactic Acid 0.9 Calcium Cancelled 8.9 Magnesium 2.1 Total Bilirubin 0.3 Direct Bilirubin 0.1 AST 26 ALT 18 Alkaline Phosphatase 94 B-Natriuretic Peptide Total Protein 6.3 L Albumin 3.5 Influenza Type A (PCR) NEGATIVE Influenza Type B (PCR) NEGATIVE RSV RNA Qual (PCR) NEGATIVE SARS-CoV-2 RNA (RT-PCR) NEGATIVE 06/17/24 06/17/24 19:44 19:50 MCV MCH MCHC RDW Plt Count MPV Immature Gran % (Auto) Neut % (Auto) Lymph % (Auto) Fleming % (Auto) Eos % (Auto) Baso % (Auto) Lymph # (Auto) Fleming # (Auto) Eos # (Auto) Baso # (Auto) Abs Immat Gran (auto) Absolute Neuts (auto) Absolute Nucleated RBC Nucleated RBC % (auto) VBG pH 7.50 H VBG pCO2 58 VBG pO2 41 VBG HCO3 46 H VBG O2 Saturation 71.0 VBG Base Excess 20.2 Anion Gap Estim Creat Clear Calc Estimated GFR Random Glucose Lactic Acid Calcium Magnesium Total Bilirubin Direct Bilirubin AST ALT Alkaline Phosphatase B-Natriuretic Peptide 336 H Total Protein Albumin Influenza Type A (PCR) Influenza Type B (PCR) RSV RNA Qual (PCR) SARS-CoV-2 RNA (RT-PCR) Imaging Radiologist's Impressions: Chest x-ray Bibasilar atelectasis/consolidation. Assessment and Plan (1) COPD with exacerbation: Status: Acute (2) (HFpEF) heart failure with preserved ejection fraction: Qualifiers: Heart failure chronicity: chronic Qualified Code(s): I50.32 - Chronic diastolic (congestive) heart failure Status: Chronic (3) Obesity: Qualifiers: Body mass index: BMI 40.0-44.9 Obesity classification: adult class 3 (BMI >= 40) Obesity type: due to excess calories Serious obesity comorbidity presence: unspecified whether serious comorbidity present Qualified Code(s): E66.813 - Obesity, class 3; E66.01 - Morbid (severe) obesity due to excess calories; Z68.41 - Body mass index [BMI] 40.0-44.9, adult Status: Chronic Plan 58-year-old obese female with a history HFpEF, vitamin D deficiency, COPD and s/p total right hip arthroplasty here with: # Acute respiratory failure with hypoxia # COPD with acute exacerbation -she presents with worsening CORONA and cough -likely with exacerbation of underlying COPD with an element of bronchitis -admit and continue with scheduled Duo Neb updrafts, PRN Albuterol, IV Steroids and empiric antibiotics -closely monitor # SIRS -meets criteria for SIRS with tachycardia and leukocytosis but no clear evidence of infection other than possible bronchitis -start on Azithromycin for its pleiotropic effects -treat COPD as above # HFpEF -stable -resume Lasix Total time managing care of this patient today: 75 minutes. Quality Stroke Does the patient have a stroke diagnosis?: No VTE Prior VTE?: No VTE Risk Level:: Medical - moderate - high VTE Device Contraindication: N/A - Device Ordered VTE Drug Contraindication: N/A - Med Ordered
[2024-06-17] MEDS: Enoxaparin Sodium 40 MG/0.4 ML SYRINGE SUBCUT (22:58)
[2024-06-17] MEDS: 0.9 % Sodium Chloride Flush 3 ML SYRINGE IVFLUSH (23:00)
[2024-06-18] VITALS (9 sets, daily range): BP systolic 98–121; BP diastolic 59–84; PULSE 95–113; RESP 16–24; TEMP 36.2–36.7; O2SAT 76–96; BMI 40.2
[2024-06-18 03:42] LABS: Procalcitonin 0.03 ng/mL
[2024-06-18 05:44] LABS: Basophils Percent Auto 0.1 % (0-2); Hematocrit 44.2 % (37.0-47.0); Hemoglobin 13.3 g/dl (12.0-16.0); Imm Gran Abs Auto 0.09 X10*3/uL (0.00-0.03); Lymphocytes Absolute Auto 0.4 X10*3/uL (1.2-4.9); MANUAL DIFF FLAG SCAN; Mean Corpuscular HGB Conc 30.1 g/dl (31.0-35.0); Mean Corpuscular Hemoglobin 26.9 pg (27.0-33.0); Mean Corpuscular Volume 89.5 fL (80.0-98.0); Mean Platelet Volume 9.7 fL (9.4-12.3); Monocytes Absolute Auto 0.1 X10*3/uL (0.1-1.2); NRBC Pct Auto 0.2 /100WBC (0.0-0.2); Neutrophils Percent Auto 92.9 % (45-73); Platelet Count 271 X10*3/uL (160-400); Red Blood Count 4.94 X10*6/uL (4.20-5.50); Red Cell Distribution Width 16.5 % (11.0-16.0); SCAN SMEAR FLAG 1; White Blood Count 8.6 X10*3/uL (4.8-10.8)
[2024-06-18 06:01] LABS: SLIDE REVIEW VERIFIED
[2024-06-18 06:22] LABS: Anion Gap 13 (12-20); Blood Urea Nitrogen 13 mg/dL (9-16); Calcium 9.2 mg/dL (8.4-10.2); Carbon Dioxide 31 mmol/L (22-29); Chloride 105 mmol/L (96-108); Cholesterol 167 mg/dL (<200); Creatinine Clr Calc Pharmacy 103.4; Estimated Glomerular Filt Rate > 60; Glucose Random 140 mg/dL (60-115); HDL Cholesterol 53 mg/dL (>40); LDL Cholesterol Calculated 102 mg/dL (<100); Magnesium 2.2 mg/dL (1.6-2.6); Potassium 4.6 mmol/L (3.3-5.1); Sodium 144 mmol/L (135-145); Thyroid Stimulating Hormone 0.57 uIU/mL (0.32-4.0); Triglycerides 63 mg/dL (<150)
--- NOTE | 2024-06-18 08:12 | PHA.MEDREC ---
Pharmacy Consult ? Medication Reconciliation Pharmacy has completed the medication reconciliation. Spoke to pt to confirm meds. Per pt, no longer taking lovenox and colace, Pt reports taking venlafaxine 150 mg BID, regardless if ER or IR formulation. Also reports taking celebrex, but ran out recently.
--- NOTE | 2024-06-18 08:25 | PC.NURSE ---
resumed care of patient at 0700, she was resting comfortably. Pt has a bed assignment at this time, belongings list filled out, report in by night nurse. pt is a/ox4, denies cp/SOB at this time, remains on none baseline O2.
[2024-06-18] MEDS: Furosemide 20 MG TABLET PO (11:18)
[2024-06-18] MEDS: Gabapentin 100 MG CAPSULE PO ×3 (11:18→20:59)
[2024-06-18] MEDS: Venlafaxine HCL 25 MG TABLET 150 MG PO (11:18)
[2024-06-18] MEDS: Gabapentin 600 MG TABLET PO ×3 (11:19→20:58)
[2024-06-18] MEDS: Empagliflozin 10 MG TABLET PO (11:19)
[2024-06-18] MEDS: 0.9 % Sodium Chloride Flush 3 ML SYRINGE IVFLUSH ×2 (11:20→21:05)
[2024-06-18] MEDS: Baclofen 10 MG TABLET 5 MG PO (11:24)
[2024-06-18] MEDS: cloNIDine HCL 0.1 MG TABLET PO ×2 (11:24→20:59)
[2024-06-18] MEDS: oxyCODONE HCl Immed Release 5 MG TABLET PO (11:25)
[2024-06-18] MEDS: Albuterol/Iprat 2.5/0.5MG 3 ML AMPUL.NEB INHALE ×3 (11:30→20:43)
--- NOTE | 2024-06-18 13:41 | P.PNIM_ITS ---
Subjective Subjective Date of Service: 06/18/24 Interval History: copd excerebation Review of Systems sob seems similar ,has some cough Physical Exam 2 Vital Signs: Vital Signs: Last Vital Signs Temp 97.6 F 06/18/24 08:58 Pulse 97 06/18/24 08:58 Resp 17 06/18/24 08:58 BP 118/78 06/18/24 08:58 Pulse Ox 91 L 06/18/24 08:58 O2 Del Method Nasal Cannula 06/18/24 08:58 O2 Flow Rate 3 06/18/24 08:58 Oxygen Flow Rate 2 06/17/24 18:38 BMI result Body Mass Index 40.2 Appearance: Alert.? Oriented X3. cvs: rrr, [id number] . res: Air entry fair but diminished, has bilateral wheezing abd: no rebound or guarding ,nt, bs present. ext pulses present , no cyanosis . neuro: axo3 , nonfocal. Objective Data Active Medications Acetaminophen (Acetaminophen 325 Mg Tablet) 650 mg PO Q6H PRN PRN Reason: Pain, Mild 1-3,fever,headache Acetaminophen (Acetaminophen 325 Mg Tablet) 650 mg PO Q6H PRN PRN Reason: Pain, Mild 1-3,Fever,Headache Albuterol/Ipratropium (Albuterol/Iprat 2.5/0.5mg 3 Ml Ampul.Neb) 3 ml INHALE RQ4H WHILE AWAKE [facility] Last Admin: 06/18/24 11:30 Dose: 3 ml Documented By: LEXI Azithromycin (Azithromycin 250 Mg Tablet) 250 mg PO BEDTIME PER Stop: 06/21/24 21:01 Baclofen (Baclofen 10 Mg Tablet) 5 mg PO BID PRN PRN Reason: muscle spasm Last Admin: 06/18/24 11:24 Dose: 5 mg Documented By: LEXI Calcium Carbonate (Calcium Carbonate 750 Mg Tab.Chew) 750 mg PO Q4H PRN PRN Reason: Heartburn Ceftriaxone Sodium (Ceftriaxone Sodium 1 Gm Vial) 1 gm IVPUSH BEDTIME PER Stop: 06/21/24 21:01 Clonidine HCl (Clonidine Hcl 0.1 Mg Tablet) 0.1 mg PO BID PER; Protocol Empagliflozin (Empagliflozin 10 Mg Tablet) 10 mg PO DAILY [facility] Last Admin: 06/18/24 11:19 Dose: 10 mg Documented By: LEXI Enoxaparin Sodium (Enoxaparin Sodium 40 Mg/0.4 Ml Syringe) 40 mg SUBCUT Q24H [facility] Last Admin: 06/17/24 22:58 Dose: 40 mg Documented By: PROSPER Furosemide (Furosemide 20 Mg Tablet) 20 mg PO DAILY [facility]; Protocol Last Admin: 06/18/24 11:18 Dose: 20 mg Documented By: LEXI Gabapentin (Gabapentin 100 Mg Capsule) 100 mg PO TID [facility] Last Admin: 06/18/24 11:18 Dose: 100 mg Documented By: LEXI Gabapentin (Gabapentin 600 Mg Tablet) 600 mg PO TID [facility] Last Admin: 06/18/24 11:19 Dose: 600 mg Documented By: LEXI Magnesium Hydroxide (Milk Of Magnesia 30 Ml Oral.Susp) 30 ml PO DAILY PRN PRN Reason: Constipation Melatonin (Melatonin 3 Mg Tablet) 6 mg PO BEDTIME PRN PRN Reason: Insomnia Ondansetron HCl (Ondansetron Hcl 4 Mg/2 Ml Vial) 4 mg IVPUSH Q8H PRN PRN Reason: Nausea and Vomiting Oxycodone HCl (Oxycodone Hcl Immed Release 5 Mg Tablet) 5 mg PO Q12H PRN PRN Reason: Pain, Moderate(Pain Scale 4-6) Last Admin: 06/18/24 11:25 Dose: 5 mg Documented By: LEXI Senna (Sennosides 8.6 Mg Tablet) 17.2 mg PO BEDTIME PRN PRN Reason: Constipation Sodium Chloride (0.9 % Sodium Chloride Flush 3 Ml Syringe) [address] [facility] Last Admin: 06/18/24 11:20 Dose: 3 ml Documented By: LEXI Trazodone HCl (Trazodone Hcl 50 Mg Tablet) 50 mg PO BEDTIME PRN PRN Reason: sleep Venlafaxine HCl (Venlafaxine Hcl 25 Mg Tablet) 150 mg PO BID [facility] Last Admin: 06/18/24 11:18 Dose: 150 mg Documented By: LEXI Labs 06/18/24 05:08 06/18/24 05:08 Labs: Laboratory Results - last 24 hr 06/17/24 06/17/24 06/17/24 19:43 19:43 19:43 MCV 88.9 MCH 27.5 MCHC 30.9 L RDW 16.8 H Plt Count 286 D MPV 9.5 Immature Gran % (Auto) 0.6 H Neut % (Auto) 75.6 H Lymph % (Auto) 13.6 L Donley % (Auto) 8.4 Eos % (Auto) 1.5 Baso % (Auto) 0.3 Lymph # (Auto) 1.7 Donley # (Auto) 1.1 Eos # (Auto) 0.2 Baso # (Auto) 0.0 Abs Immat Gran (auto) 0.08 H Absolute Neuts (auto) 9.6 H Absolute Nucleated RBC 0.000 Nucleated RBC % (auto) 0.0 Smear Tech's Comments VBG pH VBG pCO2 VBG pO2 VBG HCO3 VBG O2 Saturation VBG Base Excess Anion Gap Cancelled 14 Estim Creat Clear Calc Cancelled 110.3 Estimated GFR Cancelled Random Glucose Lactic Acid Calcium Magnesium Total Bilirubin Direct Bilirubin AST ALT Alkaline Phosphatase B-Natriuretic Peptide Total Protein Albumin Triglycerides Cholesterol LDL Cholesterol, Calc HDL Cholesterol Procalcitonin TSH Influenza Type A (PCR) Influenza Type B (PCR) RSV RNA Qual (PCR) SARS-CoV-2 RNA (RT-PCR) 06/17/24 06/17/24 06/17/24 19:43 19:43 19:43 MCV MCH MCHC RDW Plt Count MPV Immature Gran % (Auto) Neut % (Auto) Lymph % (Auto) Donley % (Auto) Eos % (Auto) Baso % (Auto) Lymph # (Auto) Donley # (Auto) Eos # (Auto) Baso # (Auto) Abs Immat Gran (auto) Absolute Neuts (auto) Absolute Nucleated RBC Nucleated RBC % (auto) Smear Tech's Comments VBG pH VBG pCO2 VBG pO2 VBG HCO3 VBG O2 Saturation VBG Base Excess Anion Gap Estim Creat Clear Calc Estimated GFR > 60 Random Glucose Cancelled 104 Lactic Acid 0.9 Calcium Cancelled 8.9 Magnesium 2.1 Total Bilirubin 0.3 Direct Bilirubin 0.1 AST 26 ALT 18 Alkaline Phosphatase 94 B-Natriuretic Peptide Total Protein 6.3 L Albumin 3.5 Triglycerides Cholesterol LDL Cholesterol, Calc HDL Cholesterol Procalcitonin 0.03 TSH Influenza Type A (PCR) NEGATIVE Influenza Type B (PCR) NEGATIVE RSV RNA Qual (PCR) NEGATIVE SARS-CoV-2 RNA (RT-PCR) NEGATIVE 06/17/24 06/17/24 06/18/24 19:44 19:50 05:08 MCV 89.5 MCH 26.9 L MCHC 30.1 L RDW 16.5 H Plt Count 271 MPV 9.7 Immature Gran % (Auto) 1.0 H Neut % (Auto) 92.9 H Lymph % (Auto) 5.0 L Donley % (Auto) 1.0 L Eos % (Auto) 0.0 Baso % (Auto) 0.1 Lymph # (Auto) 0.4 L Donley # (Auto) 0.1 Eos # (Auto) 0.0 Baso # (Auto) 0.0 Abs Immat Gran (auto) 0.09 H Absolute Neuts (auto) 8.0 Absolute Nucleated RBC 0.020 H Nucleated RBC % (auto) 0.2 Smear Tech's Comments VERIFIED VBG pH 7.50 H VBG pCO2 58 VBG pO2 41 VBG HCO3 46 H VBG O2 Saturation 71.0 VBG Base Excess 20.2 Anion Gap 13 Estim Creat Clear Calc 103.4 Estimated GFR > 60 Random Glucose 140 H Lactic Acid Calcium 9.2 Magnesium 2.2 Total Bilirubin Direct Bilirubin AST ALT Alkaline Phosphatase B-Natriuretic Peptide 336 H Total Protein Albumin Triglycerides 63 Cholesterol 167 LDL Cholesterol, Calc 102 H HDL Cholesterol 53 Procalcitonin TSH 0.57 Influenza Type A (PCR) Influenza Type B (PCR) RSV RNA Qual (PCR) SARS-CoV-2 RNA (RT-PCR) Assessment and Plan (1) COPD with exacerbation: Status: Acute Assessment and Plan: 58-year-old obese female with a history HFpEF, vitamin D deficiency, COPD and s/p total right hip arthroplasty here with: Acute respiratory failure with hypoxia on COPD with acute exacerbation -she presents with worsening CORONA and cough -likely with exacerbation of underlying COPD with an element of bronchitis scheduled Duo Neb updrafts, PRN Albuterol, IV Steroids and empiric antibiotics -closely monitor SIRS-improved leucocytosis resolved hr also improving -treat COPD as above HFpEF: -stable -resume Lasix dvt prophylax:s/c lovenox ongoing need:Acute respiratory failure with hypoxia on COPD with acute exacerbation-nebs ,steriods ,repsiratory status not optimal yet. Quality Stroke Does the patient have a stroke diagnosis?: No VTE Prior VTE?: No VTE Risk Level:: Medical - moderate - high VTE Device Contraindication: N/A - Device Ordered VTE Drug Contraindication: N/A - Med Ordered
--- NOTE | 2024-06-18 17:29 | MHC.CM.PN ---
PT REPORTS SHE LIVES WITH HER AND IS INDEPENDENT WITH CARE SHE SAYS SHE DID HAVE [facility], BUT THEY HAVE NOT COME FOR SOME TIME SHE USES A [facility] TO AMBULATE SINCE HER [facility] COPY OF HCP REQUESTED PCP: NORA SMITH DCP: HOME ? [facility] WILL TRANSPORT
[2024-06-18] MEDS: cefTRIAXone sodium 1 GM VIAL IVPUSH (20:55)
[2024-06-18] MEDS: Azithromycin 250 MG TABLET PO (20:58)
[2024-06-18] MEDS: Acetaminophen 325 MG TABLET 650 MG PO (20:59)
[2024-06-18] MEDS: traZODone HCL 50 MG TABLET PO (21:02)
[2024-06-18] MEDS: Melatonin 3 MG TABLET 6 MG PO (21:12)
[2024-06-19] MEDS: oxyCODONE HCl Immed Release 5 MG TABLET PO (02:23)
[2024-06-19 05:51] VITALS: BP 136/86; PULSE 96; RESP 20; TEMP 36.2; O2SAT 95
[2024-06-19] MEDS: Acetaminophen 325 MG TABLET 650 MG PO (07:33)
[2024-06-19 07:39] VITALS: BP 129/66; PULSE 94; RESP 16; TEMP 36; O2SAT 94
[2024-06-19] MEDS: Albuterol/Iprat 2.5/0.5MG 3 ML AMPUL.NEB INHALE ×2 (07:58→11:31)
[2024-06-19 08:01] VITALS: PULSE 67; RESP 18; O2SAT 94
[2024-06-19] MEDS: Furosemide 20 MG TABLET PO (08:49)
[2024-06-19] MEDS: Empagliflozin 10 MG TABLET PO (08:49)
[2024-06-19] MEDS: Gabapentin 600 MG TABLET PO (08:49)
[2024-06-19] MEDS: Gabapentin 100 MG CAPSULE PO (08:49)
[2024-06-19] MEDS: cloNIDine HCL 0.1 MG TABLET PO (08:50)
[2024-06-19] MEDS: Venlafaxine HCL 25 MG TABLET 150 MG PO (08:50)
[2024-06-19] MEDS: 0.9 % Sodium Chloride Flush 3 ML SYRINGE IVFLUSH (08:56)
[2024-06-19 11:34] VITALS: PULSE 97; RESP 20; O2SAT 96
[2024-06-19] MEDS: cefuroxime axetiL 500 MG TABLET PO (11:47)
[2024-06-19] MEDS: predniSONE 20 MG TABLET 40 MG PO (11:47)
--- NOTE | 2024-06-19 11:50 | MHC.CM.PN ---
PT WILL DC HOME TODAY WITH NO SERVICES VIA PRIVATE TRANSPORT
[2024-06-19 12:32] VITALS: PULSE 101; PULSE 103; PULSE 108; PULSE 113; O2SAT 85; O2SAT 87; O2SAT 90
--- NOTE | 2024-06-19 12:39 | P.F2F_ITS ---
Service Date Service Date: 06/19/24 Encounter Date of encounter: 06/19/24 Encounter: copd,chf Reasons for Services Signs and symptoms assessed: Shortness of breath or cough or fever Reason for nursing home: medication management, medication treatment and teach disease management Reason for physical therapy: home safety and mobility, therapeutic exercises, restore joint function, gait/transfer training, assess need for DME, ADL training, energy conservation and other MD Overseeing Care: Ezra Zuñiga Homebound: Leaving the home is medically contraindicated at this time without the asist of a device and/or another person due th the listed conditions above and below. Reason homebound: weakness related to hospital stay Homebound supporting statement: Patient is generalised weak post hospitlisation and need help with going to appointments and labs draws as well as PT.also with home oxygen. Certification: Based on the above findings, I certify that this patient is confined to the home and needs intermittent nursing home care, physical therapy and/or speech therapy, or continues to need occupational therapy. The patient is under my care, and I have initiated the establishment of the plan of care. The patient will be followed by a physician who will periodically review the plan of care. Time Spent With Patient Time: Total time managing care of this patient today ____ minutes.
--- NOTE | 2024-06-19 13:14 | PM.DS ---
DS: Providers Provider Date of Service: 06/19/24 Date of admission: 06/17/24 22:17 Date of discharge: 06/19/24 [facility] Attending physician on discharge: Flory Vanessa Discharging clinician: Flory Vanessa DS: Diagnosis Discharge Diagnosis (1) COPD with exacerbation: Status: Acute DS: Summary Hospital Course Hospital Course: HPI:58-year-old obese female with a history HFpEF, vitamin D deficiency, COPD and who is 6 weeks status post right hip replacement who presents to the emergency room from home complaining of progressively worsening shortness of breath that is worse with exertion and with associated wheezing and a productive cough for almost a week now. Onset was subtle but they have been progressively getting worse and today developed a cough that is productive of thick phlegm. She denies any associated chest pain, night sweats, palpitations, fevers or chills. She has been using her nebulizer treatments several times a day with no relief hence her decision to activate emergency services and come in for evaluation. She was brought in by EMS while on 2 L of supplemental oxygen by nasal cannula. However when she got in the emergency room on the 2, oxygen her saturations dropped to 80%. This improved back to 92% when she was placed back on 2 L of oxygen. Initial vital signs were notable for a low-grade fever 99.1? F, tachycardia and with a heart rate of 108 beats per minute. Initial blood work done showed a leukocytosis of 12.7 K, BNP of 336 and a normal high sensitivity troponin I while a chest x-ray done showed bibasilar atelectasis. An assessment of COPD exacerbation was made and she was started on steroids, DuoNeb updrafts and empiric antibiotics. When I got to see her, she was comfortable in bed and reported feeling much better than she did on arrival. Hospital course: 58-year-old obese female with a history HFpEF, vitamin D deficiency, COPD and s/p total right hip arthroplasty here with: Acute respiratory failure with hypoxia on COPD with acute exacerbation-admittedexacerbation of underlying COPD with an element of bronchitis vs mild pneumonia scheduled Duo Neb updrafts, PRN Albuterol, IV Steroids and empiric antibiotics: seems to be improved. goining home with prednisone 40 mg x3 days ,ceftin 500 mg po bid x5 days(received 2 days of ceftriaxone) ,azithromycin 250 mg x4 days. cxr -likely atelactasis vs consolidation : complete antibiotics , repeat chest imaging 3-4 weeks to see resolution of above adjusted finding. Home oxygen evaluation-patient qualified for home oxygen-2 L at rest, 4 L with ambulation. SIRS-improved leucocytosis resolved, blood cultures negative @24hrs. HFpEF:-stable continue Lasix Smoking: Patient said she quit last week. Nicotine gums ordered. plan: prednisone 40 mg x3 days ,ceftin 500 mg po bid x5 days ,azithromycin 250 mg x4 days. Please follow-up with PCP outpatient. Above management discussed with the patient detail length she understand in agreement with the above plan, time spent 40 minute Time Attestation Total time managing care of this patient today: 40 mintues. Discharge Coordination Time (in mins): 40 min Quality: Safe Use of Opioids Does Pt have an Active Cancer Diagnosis on the Problem List?: No Quality: Stroke Does the patient have a stroke diagnosis?: No Physical Exam Vital Signs: Vital Signs: Last Vital Signs Temp 96.8 F 06/19/24 07:39 Pulse 97 06/19/24 11:34 Resp 20 06/19/24 11:34 BP 129/66 06/19/24 07:39 Pulse Ox 94 06/19/24 07:39 O2 Del Method Room Air 06/19/24 07:39 O2 Flow Rate 2 06/19/24 05:51 Oxygen Flow Rate 2 06/17/24 18:38 BMI result Body Mass Index 40.2 Appearance: Alert.? Oriented X3. cvs: rrr, [id number] . res: Air entry fair, no rales or wheezing abd: no rebound or guarding ,nt, bs present. ext pulses present , no cyanosis . neuro: axo3 , nonfocal. DS: Data Data Completed and Pending Labs on day of discharge: Preliminary micro results at discharge 06/17/24 20:03 Blood Culture - Preliminary Blood - Venous No growth after 24 hours. 06/17/24 19:44 Blood Culture - Preliminary Blood - Venous No growth after 24 hours. Discharge Plan Discharge Anticipated Discharge Date/Time: 06/19/24 11:33 Patient Disposition: Home, Self-Care Discharge Diagnosis: copd excerebation and possible acute bronchitis Referrals: Ezra Zuñiga, POLITICAL SCIENCE [employer] MEMBER[employer] [Primary Care Provider] - 1 Week Discharge Medications: New azithromycin 250 mg Tablet 250 mg PO BEDTIME Qty: 4 0RF prednisone 20 mg Tablet 40 mg PO DAILY Qty: 6 0RF guaifenesin 100 mg/5 mL Liquid 100 mg PO Q4H PRN (Reason: Cough) Qty: 473 0RF cefuroxime axetil 500 mg Tablet 500 mg PO Q12H Qty: 10 0RF nicotine (polacrilex) [Nicorette] 2 mg gum 2 mg buccal Q2H PRN (Reason: nicotine cravings) Qty: 40 0RF Continued Breztri Aerosphere 160-9-4.8 mcg/actuation HFA aerosol inhaler 2 inh inhalation BID Qty: 32.1 1RF clonidine HCl 0.1 mg tablet 0.1 mg PO BID Qty: 180 1RF (DME) walker Misc See Rx Instructions .MEDSUPPLY Qty: 1 0RF Rx Instructions: Folding Front wheeled walker duration 99 days trazodone 50 mg tablet 50 mg PO BEDTIME PRN (Reason: sleep) Qty: 30 3RF ipratropium-albuterol 0.5 mg-3 mg(2.5 mg base)/3 mL solution for nebulization 3 ml inhalation RQ4H WHILE AWAKE PRN (Reason: shortness of breath or wheezing) Qty: 60 0RF gabapentin 100 mg capsule 100 mg PO TID Rx Instructions: TAKE WITH 600 MG; TDD 700 MG TID Jardiance 10 mg tablet 10 mg PO DAILY Rx Instructions: prescribed for cardiac dx by Dr. Mcgovern furosemide 20 mg tablet 20 mg PO DAILY Protocol: Hold for SBP< HOLD for SBP < : 90 celecoxib 200 mg Capsule 200 mg PO BID 30 Days Qty: 60 0RF acetaminophen 325 mg Tablet 650 mg PO Q6H PRN (Reason: Pain, Mild 1-3,Fever,Headache) 30 Days Qty: 240 0RF venlafaxine 50 mg tablet 150 mg PO BID gabapentin 600 mg tablet 600 mg PO TID Rx Instructions: TAKE WITH 100 MG; TDD 700 MG TID baclofen 5 mg tablet 5 mg PO BID PRN (Reason: muscle spasm) Qty: 30 0RF oxycodone 5 mg tablet 5 mg PO Q12H PRN (Reason: Pain, Moderate(Pain Scale 4-6)) Qty: 30 0RF Rx Instructions: Partial Fill upon patient request. fluticasone propionate 50 mcg/actuation spray,suspension 1 spray intranasal Q12H Qty: 16 0RF Rx Instructions: administer into each nostril Discharge Orders: Discharge Order (Routine); Ordered 06/19/24 Ordered By: Flory Vanessa Diet: Advance to usual diet Activity on Discharge: As tolerated Stand Alone Forms: Patient Portal Discharge page Print Language: Burundian Care Plan Goals: 58-year-old obese female with a history HFpEF, vitamin D deficiency, COPD and s/p total right hip arthroplasty here with: Acute respiratory failure with hypoxia on COPD with acute exacerbation-admittedexacerbation of underlying COPD with an element of bronchitis vs mild pneumonia scheduled Duo Neb updrafts, PRN Albuterol, IV Steroids and empiric antibiotics: seems to be improved. goining home with prednisone 40 mg x3 days ,ceftin 500 mg po bid x5 days(received 2 days of ceftriaxone) ,azithromycin 250 mg x4 days. cxr -likely atelactasis vs consolidation : complete antibiotics , repeat chest imaging 3-4 weeks to see resolution of above adjusted finding. Home oxygen evaluation-patient qualified for home oxygen, will be going home with oxygen. SIRS-improved leucocytosis resolved, blood cultures negative @24hrs. HFpEF:-stable continue Lasix Smoking: Patient said she quit last week. Nicotine gums ordered. Health Concerns: prednisone 40 mg x3 days ,ceftin 500 mg po bid x5 days ,azithromycin 250 mg x4 days. Please follow-up with PCP outpatient Plan of Treatment: as above. Assessment: As above. Patient Instructions: Community Acquired Pneumonia (DC)
--- NOTE | 2024-06-20 14:45 | P.CDIM_ITS ---
PROVIDER RESPONSE TEXT: To clarify, the appropriate diagnosis supported by the clinical indicators: Acute QUERY TEXT: PHYSICIAN'S DOCUMENTATION REQUEST Date of Query: 06/19/2024 10:13 AM EDT Patient Name: Rody Xiong Admit Date: 06/18/2024 Dear Flory Vanessa MD, A review of the medical record indicates additional documentation may be needed. Please review below and update the documentation accordingly. Clinical Indicators: dyspnea on exertion and cough exacerbation COPD with and element of bronchitis Duoneb updraft, prn Albuterol, IV steroid, empiric antibiotic Clarify which of the following accurately represents the acuity of the Bronchitis. Possible options might include: Acute Acute on chronic Compensated Chronic stable condition Remission Other (explain) Clinically unable to determine (explain) Thank you, Shey Roibson RN Use of terms such as suspected, likely, concern for, or probable (associated with a specific diagnosi s that is being evaluated, monitored, or treated as if it exists) are acceptable and can be coded in the inpatient se tting, when documented at the time of discharge. Please use your independent medical judgment in providing your response. THIS QUERY IS PART OF THE PERMANENT MEDICAL RECORD
== END 2024-06-19 13:17 | disposition home or self-care (01) | DRG 139 ==
LOC: HO.ED 20:50 → HO.EDOVER 22:50 → HO.S3 06-18 07:55
PROVIDERS: Admitting Provider Internal Medicine; Emergency Provider Emergency Medicine Emergency Medical Services; PCP Nurse Practitioner Family; Visit Provider Internal Medicine
DX: J18.9 Pneumonia, unspecified organism (principal); J96.01 Acute respiratory failure with hypoxia; J44.0 Chronic obstructive pulmonary disease with (acute) lower respiratory infection; J44.1 Chronic obstructive pulmonary disease with (acute) exacerbation; I50.32 Chronic diastolic (congestive) heart failure; J20.9 Acute bronchitis, unspecified; F17.210 Nicotine dependence, cigarettes, uncomplicated; E66.9 Obesity, unspecified; Z68.41 Body mass index [BMI] 40.0-44.9, adult; Z71.3 Dietary counseling and surveillance; Z20.822 Contact with and (suspected) exposure to COVID-19; Z71.6 Tobacco abuse counseling; Z79.51 Long term (current) use of inhaled steroids; Z79.899 Other long term (current) drug therapy
CPT/HCPCS: 0241U; 36415; 71045; 80048; 80061; 80076; 82803; 83605; 83735; 83880; 84145; 84443; 84484; 85025; 87040; 93005; 94640; 99285; J0456; J0696; J1650; J1940; J2919

== ENCOUNTER → 2024-06-17 19:01 | Outpatient (BNV) | payer OTHER, SELFPAY | PROVIDERS: Admitting Provider Internal Medicine; Emergency Provider Emergency Medicine Emergency Medical Services; PCP Nurse Practitioner Family; Visit Provider Internal Medicine Cardiovascular Disease | DX: R00.0 Tachycardia, unspecified (principal); R06.02 Shortness of breath | CPT/HCPCS: 93010 ==

== ENCOUNTER → 2024-06-17 19:21 | Outpatient (BNV) | payer OTHER, SELFPAY | PROVIDERS: Emergency Provider Emergency Medicine Emergency Medical Services; PCP Nurse Practitioner Family; Visit Provider Radiology Neuroradiology | DX: R05.9 Cough, unspecified (principal); R06.02 Shortness of breath; R09.02 Hypoxemia | CPT/HCPCS: 71045 ==

== ENCOUNTER → 2024-06-17 22:17 | Outpatient (BNV) | payer OTHER, SELFPAY | PROVIDERS: Admitting Provider Internal Medicine; Emergency Provider Emergency Medicine Emergency Medical Services; PCP Nurse Practitioner Family; Visit Provider Internal Medicine | DX: J44.1 Chronic obstructive pulmonary disease with (acute) exacerbation (principal); I50.32 Chronic diastolic (congestive) heart failure; E66.813 Obesity, class 3; E66.01 Morbid (severe) obesity due to excess calories; Z68.41 Body mass index [BMI] 40.0-44.9, adult | CPT/HCPCS: 99223; 99232 ==

== ENCOUNTER 2024-06-26 08:52 | Outpatient (AMB) | payer OTHER, SELFPAY ==
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
[2024-06-26 09:06] VITALS: BP 132/82; PULSE 96; RESP 18; TEMP 36.8; O2SAT 94
--- OUTSIDE RECORDS SUMMARY | 2024-06-26 09:19 | XMS_ITS | Clinical Summary ---
Author Organization [facility] Address [address] [place] [address] Care Team Providers Care Electric Meter Tester Name Role Phone Gustavo Dias MD Primary Care Provider [phone] Allergies Active Allergy Reactions Criticality Noted Date [...] 1-dose 75+ series) 2040 Insurance [employer] [address] Advance Directives Documents on File Type Date Recorded Patient Tankage Supervisor Expl anation MOLST 03/03/2024 6:25 AM 4 Care Teams Electric Meter Tester Relationship Specialty Start Date End Date Gustavo Dias MD [address] [place] [address] [phone] PCP - General Internal Medicine 03/01/24
--- OUTSIDE RECORDS SUMMARY | 2024-06-26 09:19 | XMS_ITS | Referral Summary ---
Author Organization [facility] Address [address] [place] [address] Care Team Providers Care Welder Production Line Gas Name Role Phone Gustavo Dias MD Primary Care Provider Allergies Active Allergy Reactions Criticality Noted Date [...] Documents on File Type Date Recorded Patient Machinery Mover Eriberto BREAUX 03/03/2024 6:25 AM 4 Care Teams Welder Production Line Gas Relationship Specialty Start Date End Date Gustavo Dias MD [address] [place] [address] [phone] PCP - General Internal Medicine 03/01/24
== END 2024-06-26 10:48 | disposition home or self-care (01) ==
LOC: HO.HMCC 08:53
PROVIDERS: PCP Nurse Practitioner Family; Visit Provider Nurse Practitioner Family
DX: J44.1 Chronic obstructive pulmonary disease with (acute) exacerbation (principal); J18.9 Pneumonia, unspecified organism

== ENCOUNTER → 2024-06-26 08:52 | Outpatient (BNVA) | payer OTHER, SELFPAY | PROVIDERS: PCP Nurse Practitioner Family; Visit Provider Nurse Practitioner Family | DX: J44.1 Chronic obstructive pulmonary disease with (acute) exacerbation (principal); J18.9 Pneumonia, unspecified organism | CPT/HCPCS: 96127; 99212 ==

== ENCOUNTER 2024-06-30 11:15 | Outpatient (REF) | payer OTHER, SELFPAY ==
--- NOTE | ~2024-06-30 | XR_ITS ---
EXAMINATION: XR CHEST 2 VIEWS HISTORY: J44.1 - Chronic obstructive pulmonary disease with (acute) exacerbation COMPARISON: Comparison is made with the prior examination dated 325. FINDINGS: PA and lateral views of the chest are submitted. Again seen is mild elevation of the left hemidiaphragm. There is bibasilar subsegmental atelectasis. There is no pleural effusion, pneumothorax, or pulmonary vascular congestion. The heart is mildly enlarged. There is degenerative disc disease of the spine. XR/XR chest 2V IMPRESSION: Mild cardiomegaly. Bibasilar subsegmental atelectasis. Electronically signed by: Neel Calderón MD 06/30/2024 03:01 PM EDT RP
--- OUTSIDE RECORDS SUMMARY | 2024-06-30 13:44 | XMS_ITS | Clinical Summary ---
Author Organization [facility] Address [address] [place] [address] Care Team Providers Care Printing Plate Maker Name Role Phone Gustavo Dias MD Primary Care Provider [phone] Allergies Active Allergy Reactions Criticality Noted Date [...] 1-dose 75+ series) 2040 [place] [id number] Advance Directives Documents on File Type Date Recorded Patient Manual Machinist Expl anation MOLST 03/03/2024 6:25 AM 4 Care Teams Printing Plate Maker Relationship Specialty Start Date End Date Gustavo Dias MD [address] [place] [address] [phone] PCP - General Internal Medicine 03/01/24
--- OUTSIDE RECORDS SUMMARY | 2024-06-30 13:44 | XMS_ITS | Referral Summary ---
Author Organization [facility] Address [address] [place] [address] Care Team Providers Care Supervisor Hot Dip Plating Name Role Phone Gustavo Dias MD Primary Care Provider [phone] Allergies Active Allergy Reactions Criticality Noted Date [...] Documents on File Type Date Recorded Patient Tag And Label Cutter Eriberto BREAUX 03/03/2024 6:25 AM 4 Care Teams Supervisor Hot Dip Plating Relationship Specialty Start Date End Date Gustavo Dias MD [address] [place] [address] [phone] PCP - General Internal Medicine 03/01/24
== END 2024-06-30 11:16 | disposition home or self-care (01) ==
LOC: HO.HMGCX 11:15
PROVIDERS: PCP Nurse Practitioner Family; Visit Provider Nurse Practitioner Family
DX: J44.1 Chronic obstructive pulmonary disease with (acute) exacerbation (principal); J18.9 Pneumonia, unspecified organism
CPT/HCPCS: 71046

== ENCOUNTER → 2024-06-30 11:19 | Outpatient (BNV) | payer OTHER, SELFPAY | PROVIDERS: PCP Nurse Practitioner Family; Visit Provider Radiology Diagnostic Radiology | DX: J43.9 Emphysema, unspecified (principal) | CPT/HCPCS: 71046 ==

== ENCOUNTER 2024-07-08 19:52 | Inpatient (IN) | payer OTHER, SELFPAY ==
[2024-07-08] VITALS (16 sets, daily range): BP systolic 96–144; BP diastolic 52–90; PULSE 82–111; RESP 12–22; TEMP 36.6–36.9; O2SAT 96–99; BMI 41.7
--- NOTE | ~2024-07-08 | CT_ITS ---
CLINICAL HISTORY: Persistent infiltrate CT chest without contrast Comparison: CR - XR CHEST 1V - 07/09/24 09:57 EDT CR - XR CHEST 1V - 07/08/24 20:24 EDT CR/SR - XR CHEST 2V - 06/30/24 11:28 EDT CR - XR CHEST 1V - 06/17/24 19:[address]/SR - CT ANGIO CHEST PE PROTOCOL - 02/15/24 22:06 EST Findings: No mediastinal mass or lymphadenopathy. No cardiomegaly. Moderate calcified coronary artery disease. Trace calcification of the aortic valve. Normal size thoracic aorta with mild calcified atherosclerotic disease. Confluent centrilobular emphysema. Mild paraseptal emphysema and bronchial wall thickening. Trace amount of secretions in the airways. Segmental/subsegmental atelectasis with mild elevation of the left hemidiaphragm, stable. Linear scarring may also be considered. Pulmonary nodule measuring 6 mm, stable (series 4, image 48 superior segment of the left lower lobe). Mild amount of ground-glass opacity measuring up to 1.3 cm in the right middle lobe, new (series 5, image 28 and series 6, image 100). Calcified granuloma. No pneumothorax or pleural effusion. No acute osseous or soft tissue abnormality. No acute pathology in the imaged portion of the upper abdomen. Cholelithiasis. No gallbladder wall thickening or pericholecystic fluid. 1.9 cm right adrenal adenoma Impression: New mild amount of ground-glass opacity in the right middle lobe, likely infectious/inflammatory. Three to six-month follow up is recommended. Stable pulmonary nodules measuring up to 6 mm. 6-8 mm nodules have optional [address] follow-up in low risk, and 6-[address] follow-up followed by 18-[address] follow-up if no change in high risk patients. Atelectasis and/or scarring with mild elevation of the left hemidiaphragm, stable. Emphysema and bronchial wall thickening with secretions in the airways likely indicates COPD. This document has been electronically signed by: Jessi Painter MD on 07/11/2024 16:06:06
--- NOTE | ~2024-07-08 | XR_ITS ---
CLINICAL HISTORY: post red 2 view, pelvis and right hip Comparison: CR - XR HIP RT W PEL1V - 07/08/24 20:19 EDT Findings: Right total hip arthroplasty changes. Interval reduction with normal alignment on the current study. No fracture. Soft tissues within normal limits. IMPRESSION: Successful right total hip arthroplasty reduction, now in anatomic alignment. This document has been electronically signed by: Geoffrey Rico MD on 07/08/2024 22:16:17
--- NOTE | ~2024-07-08 | XR_ITS ---
CLINICAL HISTORY: hip dislocation 3 view, pelvis and right hip Comparison: DX - XR PELVIS 1-2V - 06/08/24 12:49 EST Findings: Right total hip arthroplasty changes. Complete dislocation of the femoral component of the prosthesis from the acetabular cup component. IMPRESSION: Dislocated right total hip. This document has been electronically signed by: Geoffrey Rico MD on 07/08/2024 20:49:51
--- NOTE | ~2024-07-08 | XR_ITS ---
CLINICAL HISTORY: worsening CORONA, hypoxia 1 view chest x-ray. Comparison: CR - XR CHEST 1V - 07/08/24 20:24 EDT Findings: The lungs are adequately expanded. There is elevation of the left hemidiaphragm and ill-defined left lower lobe density. No effusion or pneumothorax. Cardiac and mediastinal contours are within normal limits. No acute osseous abnormality Impression: Subtle, ill-defined left lower lobe density. Infiltrate possible. Correlation for pneumonia This document has been electronically signed by: Darryn Garcia MD on 07/09/2024 10:10:53
--- NOTE | ~2024-07-08 | XR_ITS ---
CLINICAL HISTORY: pneumonia 1 view chest x-ray Comparison: CR/SR - XR CHEST 2V - 06/30/24 11:28 EDT Findings: The lungs are clear. Heart size is normal. No acute fracture. IMPRESSION: 1. No acute findings. This document has been electronically signed by: Geoffrey Rico MD on 07/08/2024 20:51:06
--- NOTE | 2024-07-08 20:35 | ED.GENADULT ---
HPI - General Adult General Chief complaint: Extremity Injury, Lower Stated complaint: DISLOCATED RT HIP PER EMS Time Seen by Provider: 07/08/24 20:31 History of Present Illness ED Provider: Kajal ANGEL narrative: The patient is a 58-year-old woman who had a right knee replacement surgery 2 months ago. Today she was walking when she accidentally twisted her right foot while standing and she felt a sudden pain in her right hip and it felt as though the hip was out of joint. An ambulance was called and she was brought to the hospital. She has no numbness or tingling in the foot. The patient has a history of COPD and has home oxygen that she uses occasionally. She had no other injury at the time that she injured her hip today. Related Data Home Medications ?Medication ?Instructions ?Recorded ?Confirmed venlafaxine 50 mg tablet 150 mg PO BID 06/18/24 06/26/24 Previous Rx's ?Medication ?Instructions ?Recorded walker #1 ea 03/30/24 acetaminophen 325 mg tablet 650 mg (2 x 325 mg) PO Q6H PRN 05/05/24 Pain, Mild 1-3,Fever,Headache 30 days #240 tabs fluticasone propionate 50 1 spray intranasal Q12H #48 mL 06/21/24 mcg/actuation nasal spray,suspension Breztri Aerosphere 160 2 inh inhalation BID #32.1 grams 06/26/24 mcg-9mcg-4.8mcg/actuation HFA aerosol inhaler (zfdgwjbzxo-ydyyfmum-cgvjclpijz) clonidine HCl 0.1 mg tablet 0.1 mg PO TID 90 days #270 tabs 06/26/24 empagliflozin 10 mg tablet 10 mg PO DAILY 90 days #90 tabs 06/26/24 (Jardiance) furosemide 20 mg tablet 20 mg PO DAILY #30 tabs 06/26/24 gabapentin 600 mg tablet 600 mg PO TID 30 days #90 tabs 06/26/24 guaifenesin 100 mg/5 mL oral liquid 100 mg (5 mL) PO Q4H PRN Cough 06/26/24 #473 mL nicotine (polacrilex) 4 mg gum 4 mg buccal Q2H PRN nicotine 06/26/24 cravings #100 ea prednisone 10 mg tablet 10 mg PO .COMPLEX 21 days #65 tabs 06/26/24 trazodone 50 mg tablet 50 mg PO BEDTIME PRN sleep #30 tabs 06/26/24 ipratropium 0.5 mg-albuterol 3 mg 3 ml inhalation RQ4H WHILE AWAKE 06/30/24 (2.5 mg base)/3 mL nebulization PRN shortness of breath or soln wheezing #90 mL ciprofloxacin HCl 500 mg tablet 500 mg PO DAILY 7 days #7 tabs 07/01/24 (Cipro) baclofen 10 mg tablet 10 mg PO BID 15 days #30 tabs 07/06/24 Allergies Allergy/AdvReac Type Severity Reaction Status Date / Time lansoprazole [Prevacid] Allergy Severe anaphylaxis Verified 07/08/24 20:05 cyclobenzaprine Allergy Intermediate Rash Verified 07/08/24 20:05 [From Flexeril] Review of Systems Review of Systems: Yes all other systems are reviewed and are negative [facility] Past Medical History Medical History [facility] Heart failure with preserved ejection fraction Substance abuse Acute exacerbation of chronic obstructive pulmonary disease Lumbar spondylosis Trochanteric bursitis of right hip Obesity Nicotine dependence, cigarettes, uncomplicated History of sepsis Urinary frequency COPD (chronic obstructive pulmonary disease) Exercise hypoxemia Smoker Bilateral hip pain Dyslipidemia Lower back pain Anxiety associated with depression Somatic dysfunction of left sacroiliac joint Surgical History History of section Family History Family History Father Substance use disorder Mother Substance use disorder Mental health disorder Maternal Grandmother Substance use disorder Mental health disorder Social History Social History Household Members: Spouse Housing: House Housing Other:: currently @ [facility] for rehab Are you a primary career and guidance counselor to a significant other at home: No Do you presently have visiting nurse or other home services: No Unable to assess alcohol history related to: Unable to respond Alcohol intake: former Patient Tobacco Use Status: Current everyday Tobacco user Tobacco use type: Cigarette Cigarette Packs Per Day: 0.5 Cigarettes Per Day: 2 Years Smoked: 30 Smoked in Last 30 Days: Yes e-Cigarette/Vaping Use: Never Used Patient Interested in Nicotine Replacement: Yes Second Hand Smoke Exposure: No Use of substances other than those prescribed or required for medical reasons: No Substance Use Type: Crack/Cocaine Currently Displaying Signs/Symptoms of Drug Intoxication Withdrawal: No Have you been hit, kicked, punched, or otherwise hurt by someone within the past year? If so, by whom?: No Do you feel safe in your current relationship?: Yes Is there a partner from a previous relationship who is making you feel unsafe now?: No Are you made to feel afraid or neglected: No Advance Directives: No Advance Directives Information Provided: No Do you have a plan to hurt others: No Plan Recently lost weight without trying: No Eating poorly because of decreased appetite: No Nutrition Risks: No Nutritional Risk Patient : No service: No Current occupational status: employed Current occupation: [employer] Cognitive needs: No Hearing needs: No Vision needs: No Physical Exam ED Vital Signs: Vital Signs - 24 hr 07/08/24 20:04 07/08/24 21:31 07/08/24 21:38 Temperature 98.4 F 97.8 F Pulse Rate 100 89 86 Respiratory Rate 18 22 H 17 Blood Pressure 124/76 105/54 L 105/54 L Pulse Oximetry 96 99 99 Oxygen Delivery Method Nasal Cannula Oxygen Flow Rate 07/08/24 21:39 07/08/24 21:40 07/08/24 21:41 Temperature 97.8 F Pulse Rate 82 95 95 Respiratory Rate 12 12 13 Blood Pressure 105/54 L 98/56 L 98/56 L Pulse Oximetry 99 97 98 Oxygen Delivery Method Oxymask Oxymask Oxygen Flow Rate 11 15 07/08/24 21:45 07/08/24 21:50 07/08/24 21:54 Temperature 98.0 F Pulse Rate 103 H 100 104 H Respiratory Rate 15 14 15 Blood Pressure 118/70 115/72 124/70 Pulse Oximetry 99 99 99 Oxygen Delivery Method Oxygen Flow Rate 07/08/24 21:59 Temperature 98.0 F Pulse Rate 95 Respiratory Rate 16 Blood Pressure 122/65 Pulse Oximetry 99 Oxygen Delivery Method Oxygen Flow Rate BMI result Body Mass Index 41.7 Const Other: The patient is a somewhat chronically ill-appearing 58-year-old who was awake and alert and looked uncomfortable. HENMT Other: Face is symmetrical. Mucous membranes moist. Posterior pharynx is normal. Eyes General: appearance normal, both eyes and all related structures Neck Neck: Yes normal visual inspection, Yes full ROM and Yes no JVD Resp Effort & Inspection: normal respiratory effort Auscultation: clear to auscultation bilaterally Cardio Rate: regular rate Rhythm: regular rhythm Heart sounds: S1 normal heart sound present and S2 normal heart sound present GI Other: Abdomen is soft and nontender Skin Other: Skin is dry and unremarkable Neuro Other: The patient is awake and alert with a normal mental status. Cranial nerves 2-12 are intact. She moves her arms normally. She moves her left leg normally. She does not move her right leg because of pain at the hip but she is able to wiggle all of her toes in the right foot. She has normal sensation in the right foot. Extrem Other: The right leg is shortened and internally rotated. Good pulses in the foot. Medications Administered Generic Name Dose Route Start Last Admin Trade Name Freq PRN Reason Stop Dose Admin Lactated Ringer's 1,000 mls @ 100 mls/hr 07/08/24 22:00 07/08/24 22:39 Lr IVCONT 100 mls/hr .Q10H PER Administration Oxycodone HCl 5 mg 07/08/24 22:00 07/08/24 23:02 Oxycodone Hcl Immed Release 5 Mg Tablet PO 5 mg Q4H PRN Administration Pain, Moderate(Pain Scale 4-6) Sodium Chloride 3 ml 07/09/24 00:00 07/09/24 00:07 0.9 % Sodium Chloride Flush 3 Ml Syringe IVFLUSH Not Given QSHIFT PER Discontinued Medications Generic Name Dose Route Start Last Admin Trade Name Freq PRN Reason Stop Dose Admin Hydromorphone HCl 1 mg 07/08/24 20:31 07/08/24 20:37 Hydromorphone Hcl 1 Mg/Ml Syringe IVPUSH 07/08/24 20:32 1 mg ONCE ONE Administration Protocol Ketamine HCl 75 mg 07/08/24 21:19 07/08/24 21:38 Ketamine Hcl/Ns 50 Mg/5 Ml Syringe IVPUSH 07/08/24 21:20 75 mg ONCE ONE Administration Lorazepam 1 mg 07/08/24 20:31 07/08/24 20:37 Lorazepam 2 Mg/Ml Vial IVPUSH 07/08/24 20:32 1 mg ONCE ONE Administration Propofol 80 mg 07/08/24 21:32 07/08/24 21:38 Propofol 200 Mg/20 Ml Vial IVPUSH 07/08/24 21:33 80 mg ONCE ONE Administration Propofol 30 mg 07/08/24 22:29 07/08/24 22:39 Propofol 200 Mg/20 Ml Vial IVPUSH 07/08/24 22:30 30 mg ONCE ONE Administration Propofol 30 mg 07/08/24 22:30 07/08/24 22:40 Propofol 200 Mg/20 Ml Vial IVPUSH 07/08/24 22:31 30 mg ONCE ONE Administration Procedures Procedural Sedation Indication: fracture/dislocation reduction Presedation Evaluation: The patient is a 58-year-old woman required procedural sedation to allow for reduction of a prosthetic right hip dislocation. The procedure was done by the orthopedist Dr. Sweeney. The patient is a 58-year-old woman with a history of COPD who was sometimes on home oxygen. She does not seem acutely ill from a respiratory point of view today. ASA Class: III Mallampati Class: II Preparation: highway engineering technician applied, pulse oximeter, supplemental O2 applied, suction/airway equipment at bedside and IV secured Ketamine: IV Ketamine dose (mg): 75 IV Propofol dose (mg): 80 Patient Tolerated Procedure: well and no complications Additional Comments: The patient was given 2 additional small doses of propofol to ease her emergence from the ketamine. Ultimately the patient emerged from sedation very well with no recollection of the procedure and no recollection of any unpleasant experiences during sedation. Medical Decision Making Medical Decision Making MDM Narrative: The patient is a 58-year-old woman who presents with the acute abrupt onset right hip pain and findings suggestive of a hip dislocation. She has a prosthetic right hip. X-ray confirms a dislocation. I contacted Orthopedic. Dr. Sweeney said he would come for the reduction. The patient was consented for a reduction procedure as well as sedation for the procedure. Procedural sedation protocols were used. The patient was given ketamine and propofol for the sedation. The reduction maneuver was performed by Dr. Sweeney. The reduction seemed to not require a great deal of force. The patient ultimately recovered well from the sedation. Ultimately an abductor wedge was applied. The patient will be admitted to the orthopedic service for further evaluation. Discharge Plan Discharge Clinical Impression: Dislocation of prosthesis of right hip joint Patient Disposition: Admitted As Inpatient Interventions: Admission Worksheet (ED) Last Done: 07/08/24 23:38 Discharge Date/Time: 07/09/24 00:34
[2024-07-08] MEDS: LORazepam 2 MG/ML VIAL 1 MG IVPUSH (20:37)
[2024-07-08] MEDS: HYDROmorphone HCl 1 MG/ML SYRINGE IVPUSH (20:37)
[2024-07-08] MEDS: Ketamine HCl/NS 50 MG/5 ML SYRINGE 75 MG IVPUSH (21:38)
[2024-07-08] MEDS: propofoL 200 MG/20 ML VIAL 80 MG IVPUSH (21:38)
--- NOTE | 2024-07-08 21:39 | PC.NURSE ---
pt medicated per MAR for sedation
--- NOTE | 2024-07-08 22:19 | PC.NURSE ---
2146 Tor verbal order for 30mg propofol IVpush. pt moving 2153 Tor verbal order another 30mg propofol IVpush. pt awake, confused,, moving
--- NOTE | 2024-07-08 22:28 | PC.NURSE ---
pt appears back to baseline, remains on O2, stating 98% on 3L oxymask. copd, O2 at baseline.
[2024-07-08] MEDS: propofoL 200 MG/20 ML VIAL 30 MG IVPUSH ×2 (22:39→22:40)
[2024-07-08] MEDS: Lactated Ringers 1,000 ML 100 ML IVCONT (22:39)
[2024-07-08] MEDS: oxyCODONE HCl Immed Release 5 MG TABLET PO (23:02)
[2024-07-09] VITALS (9 sets, daily range): BP systolic 109–112; BP diastolic 55–64; PULSE 80–101; RESP 18–22; TEMP 36.1–36.8; O2SAT 93–96; BMI 38.2
[2024-07-09] MEDS: Albuterol/Iprat 2.5/0.5MG 3 ML AMPUL.NEB INHALE ×3 (03:54→14:02)
[2024-07-09] MEDS: oxyCODONE HCl Immed Release 5 MG TABLET PO ×2 (06:50→19:29)
--- NOTE | 2024-07-09 07:59 | P.HPOP_ITS ---
History of Present Illness History of Present Illness Date of Service: 07/09/24 Chief complaint: Dislocation of R MAMADOU Narrative: Rody Xiong is a 58 year old female Admitted to the hospital after dislocation of right total hip arthroplasty, date of injury 07/08/2024 patient reports that this is the 2nd time the hip has popped out of place in the last week, patient reports that the 1st injury self reduced without difficulty dislocation reduced in the ED last night Patient placed in abduction pillow today, patient reports that her pain has improved very significantly, but she is still slightly sore no acute events overnight no other acute complaints or concerns at this time Review of Systems Review of Systems: Yes all other systems are reviewed and are negative [facility] Past Medical History Medical History Resides in retirement facility Heart failure with preserved ejection fraction Substance abuse Acute exacerbation of chronic obstructive pulmonary disease Lumbar spondylosis Trochanteric bursitis of right hip Obesity Nicotine dependence, cigarettes, uncomplicated History of sepsis Urinary frequency COPD (chronic obstructive pulmonary disease) Exercise hypoxemia Smoker Bilateral hip pain Dyslipidemia Lower back pain Anxiety associated with depression Somatic dysfunction of left sacroiliac joint Family History Family History Father Substance use disorder Mother Substance use disorder Mental health disorder Maternal Grandmother Substance use disorder Mental health disorder Surgical History Surgical History History of section Social History Social History Household Members: Spouse Housing: House Housing Other:: currently @ [facility] for rehab Are you a primary acute care nursing assistant to a significant other at home: No Do you presently have visiting nurse or other home services: No Unable to assess alcohol history related to: Unable to respond Alcohol intake: former Patient Tobacco Use Status: Current everyday Tobacco user Tobacco use type: Cigarette Cigarette Packs Per Day: 0.5 Cigarettes Per Day: 2 Years Smoked: 30 Smoked in Last 30 Days: Yes e-Cigarette/Vaping Use: Never Used Patient Interested in Nicotine Replacement: Yes Second Hand Smoke Exposure: No Use of substances other than those prescribed or required for medical reasons: No Substance Use Type: Crack/Cocaine Currently Displaying Signs/Symptoms of Drug Intoxication Withdrawal: No Have you been hit, kicked, punched, or otherwise hurt by someone within the past year? If so, by whom?: No Do you feel safe in your current relationship?: Yes Is there a partner from a previous relationship who is making you feel unsafe now?: No Are you made to feel afraid or neglected: No Advance Directives: No Advance Directives Information Provided: No Do you have a plan to hurt others: No Plan Recently lost weight without trying: No Eating poorly because of decreased appetite: No Nutrition Risks: No Nutritional Risk Patient : No service: No Current occupational status: employed Current occupation: [employer] Cognitive needs: No Hearing needs: No Vision needs: No Meds Allergies Allergy/AdvReac Type Severity Reaction Status Date / Time lansoprazole [Prevacid] Allergy Severe anaphylaxis Verified 07/08/24 20:05 cyclobenzaprine Allergy Intermediate Rash Verified 07/08/24 20:05 [From Flexeril] Active Medications: Current Medications Acetaminophen (Acetaminophen 325 Mg Tablet) 650 mg PO Q6H PRN PRN Reason: Pain, Mild 1-3,fever,headache Albuterol/Ipratropium (Albuterol/Iprat 2.5/0.5mg 3 Ml Ampul.Neb) 3 ml INHALE Q4H PRN PRN Reason: Shortness of Breath/Wheezing Last Admin: 07/09/24 03:54 Dose: 3 ml Budesonide (Budesonide 180 Mcg Aer.Pow.Ba) 2 puff INHALE RBID PER Clonidine HCl (Clonidine Hcl 0.1 Mg Tablet) 0.1 mg PO TID PER; Protocol Furosemide (Furosemide 20 Mg Tablet) 20 mg PO DAILY PER; Protocol Lactated Ringer's (Lr) 1,000 mls @ 100 mls/hr IVCONT .Q10H PER Last Admin: 07/08/24 22:39 Dose: 100 mls/hr Melatonin (Melatonin 3 Mg Tablet) 6 mg PO BEDTIME PRN PRN Reason: Insomnia Oxycodone HCl (Oxycodone Hcl Immed Release 5 Mg Tablet) 5 mg PO Q4H PRN PRN Reason: Pain, Moderate(Pain Scale 4-6) Last Admin: 07/09/24 06:50 Dose: 5 mg Polyethylene Glycol (Polyethylene Glycol 3350 17 Gm Powd.Pack) 17 gm PO DAILY PRN PRN Reason: Constipation Sodium Chloride (0.9 % Sodium Chloride Flush 3 Ml Syringe) 3 ml IVFLUSH QSHIFT [facility] Last Admin: 07/09/24 00:07 Dose: Not Given Venlafaxine HCl (Venlafaxine Hcl 25 Mg Tablet) 150 mg PO BID [facility] Home Medications ?Medication ?Instructions ?Recorded ?Confirmed ?Last Taken ?Type venlafaxine 50 mg tablet 150 mg PO BID 06/18/24 06/26/24 06/17/24 09:00 History Physical Exam Vital Signs: Vital Signs: Last Vital Signs Temp 98.2 F 07/09/24 07:42 Pulse 90 07/09/24 07:42 Resp 18 07/09/24 07:42 BP 112/58 L 07/09/24 07:42 Pulse Ox 93 07/09/24 07:42 O2 Del Method Nasal Cannula 07/09/24 07:42 O2 Flow Rate 2.0 07/09/24 07:42 Oxygen Flow Rate 3 07/08/24 22:23 BMI result Body Mass Index 41.7 Extrem: Other: abduction pillow clean, dry, intact no visible or palpable deformity, shortening, rotation of the right lower extremity No evidence of surrounding erythema, ecchymosis No evidence of infection Patient is able to flex and extend the digits of the left foot without difficulty Compartments soft, nontender Distal sensation intact Capillary refill brisk Results Labs Labs: All other labs normal. Diagnostic results Hip x-ray: report reviewed and image reviewed Assessment and Plan (1) Dislocation of prosthesis of right hip joint: Status: Acute Plan 1. Dislocation of right total hip arthroplasty status post reduction date of injury and date of reduction 07/08/2024 continue pain management continue with abduction pillow when in bed weight-bearing as tolerated with posterior precautions Dr. Sweeney to meet with the patient later today for further discussion follow-up in our office upon discharge Quality Stroke Does the patient have a stroke diagnosis?: No VTE Prior VTE?: No VTE Risk Level:: Surgical - moderate VTE Device Contraindication: N/A - Device Ordered VTE Drug Contraindication: Treatment Not Indicated Procedures Date of Service Date of Service: 07/09/24
[2024-07-09] MEDS: cloNIDine HCL 0.1 MG TABLET PO (08:40)
[2024-07-09] MEDS: Furosemide 20 MG TABLET PO (08:40)
[2024-07-09] MEDS: Venlafaxine HCL 25 MG TABLET 150 MG PO (08:41)
--- NOTE | 2024-07-09 09:35 | P.DS_ITS ---
DS: Providers Provider Date of Service: 07/09/24 Date of admission: 07/08/24 22:00 Primary care physician: Unknown Physician Consults: 07/08/24 22:22 Consult to Hospitalist Routine Comment: Consulting Provider: [facility] [place] Hospitalists Reason For Exam: Ongoing medical management, recent dx pneumonia DS: Diagnosis Discharge Diagnosis (1) Dislocation of prosthesis of right hip joint: Status: Acute DS: Summary Hospital Course Hospital Course: admitted to the hospital status post dislocation of right total hip arthroplasty reduced in the emergency department, admitted for observation afterwards continue use of abduction pillow when lying down continue with posterior precautions patient may weightbear as tolerated, avoid crossing legs, hip flexion to greater than 90 degrees, internal rotation past neutral Status at Discharge Cognitive/behavioral status at discharge: stable for discharge Time Attestation Discharge Coordination Time (in mins): 30 Quality: Safe Use of Opioids Does Pt have an Active Cancer Diagnosis on the Problem List?: No Quality: Stroke Does the patient have a stroke diagnosis?: No Physical Exam Vital Signs: Vital Signs: Last Vital Signs Temp 98.2 F 07/09/24 07:42 Pulse 90 07/09/24 07:42 Resp 18 07/09/24 07:42 BP 112/58 L 07/09/24 07:42 Pulse Ox 93 07/09/24 07:42 O2 Del Method Nasal Cannula 07/09/24 07:42 O2 Flow Rate 2.0 07/09/24 07:42 Oxygen Flow Rate 3 07/08/24 22:23 BMI result Body Mass Index 41.7 Extrem: Other: abduction pillow clean, dry, intact no visible or palpable deformity, shortening, rotation of the right lower extremity No evidence of surrounding erythema, ecchymosis No evidence of infection Patient is able to flex and extend the digits of the left foot without difficulty Compartments soft, nontender Distal sensation intact Capillary refill brisk Discharge Plan Discharge Patient Disposition: Home, Self-Care Discharge Diagnosis: Status post dislocation and reduction of right total hip arthroplasty Referrals: Physician,Unknown J [Primary Care Provider] - 1 Week Discharge Medications: Continued (DME) walker Misc See Rx Instructions .MEDSUPPLY Qty: 1 0RF Rx Instructions: Folding Front wheeled walker duration 99 days fluticasone propionate 50 mcg/actuation spray,suspension 1 spray intranasal Q12H Qty: 48 1RF ipratropium-albuterol 0.5 mg-3 mg(2.5 mg base)/3 mL solution for nebulization 3 ml inhalation RQ4H WHILE AWAKE PRN (Reason: shortness of breath or wheezing) Qty: 90 0RF ciprofloxacin HCl [Cipro] 500 mg tablet 500 mg PO DAILY 7 Days Qty: 7 0RF baclofen 10 mg tablet 10 mg PO BID 15 Days Qty: 30 0RF acetaminophen 325 mg Tablet 650 mg PO Q6H PRN (Reason: Pain, Mild 1-3,Fever,Headache) 30 Days Qty: 240 0RF venlafaxine 50 mg tablet 150 mg PO BID Breztri Aerosphere 160-9-4.8 mcg/actuation HFA aerosol inhaler 2 inh inhalation BID Qty: 32.1 1RF clonidine HCl 0.1 mg tablet 0.1 mg PO TID 90 Days Qty: 270 1RF Jardiance 10 mg tablet 10 mg PO DAILY 90 Days Qty: 90 0RF furosemide 20 mg tablet 20 mg PO DAILY Qty: 30 2RF Protocol: Hold for SBP< HOLD for SBP < : 90 gabapentin 600 mg tablet 600 mg PO TID 30 Days Qty: 90 0RF Rx Instructions: TAKE WITH 100 MG; TDD 700 MG TID guaifenesin 100 mg/5 mL liquid 100 mg PO Q4H PRN (Reason: Cough) Qty: 473 0RF trazodone 50 mg tablet 50 mg PO BEDTIME PRN (Reason: sleep) Qty: 30 3RF nicotine (polacrilex) 4 mg gum 4 mg buccal Q2H PRN (Reason: nicotine cravings) Qty: 100 0RF prednisone 10 mg tablet 10 mg PO .COMPLEX 21 Days Qty: 65 0RF Rx Instructions: 10 mg orally 6 tabs for 3 days, 5tabs for 3 days, 4t for 3d, 3t for 3d, 2t for 3d, 1t for 3d, .5 tabs for 3 days; Diet: Advance to usual diet Activity on Discharge: Use cane or walker Stand Alone Forms: Patient Portal Discharge page Print Language: Peruvian Care Plan Goals: Restore normal function of R hip Avoid further dislocations Health Concerns: R MAMADOU Plan of Treatment: Physical therapy for total hip arthroplasty: WBAT, posterior precautions, gait training, range of motion, strength Limit stair climbing Follow-up with [facility] for previously scheduled appointment on 07/17/2024 Return to emergency department for any recurrent dislocation Assessment: stable for discharge
[2024-07-09] MEDS: Gabapentin 600 MG TABLET PO ×3 (09:41→19:29)
--- NOTE | 2024-07-09 10:01 | P.CONHOSP_ITS ---
History of Present Illness Data of Consult Service Date: 07/09/24 Requesting physician: Juan Moctezuma Primary Care Provider: Unknown Physician HPI Reason for consult: medical management, recent pneumonia 58-year-old female with history of COPD with exercise hypoxemia with p.r.n. O2, hyperlipidemia, mood disorder, chronic low back pain, heart failure with preserved ejection fraction, hx cocaine use (reports last use 20 years ago- recent UDS negative for cocaine), who is a current 1/2 PPD cigarette smoker admitting to orthopedic surgery due to dislocation of right MAMADOU. She was recen tly admitted to hospital service from 06/18-06/19 due to acute hypoxemic respiratory failure due to COPD exacerbation and mild pneumonia. She was discharged on 3 days of prednisone as well as Ceftin and azithromycin which she reports she completed. home O2 evaluation was performed during admission recommending 2 L at rest and 4 L with ambulation. she was discharged to and was discharged home. States she weaned herself from O2 but then about 2 weeks ago was experiencing increased SOB, primarily with exertion, and wheezing with increased albuterol usage and requiring 2L O2. She presented to pcp who prescribed presnisone taper which she is currently taking. She reports compliance with diuretics but states she has not been able to obtain jardiance due to insurance issues. She does not weight herself at home but does not feel she has gained weight. On review of chart, appears she has had a 3.5 kg weight gain since discharge. She has chronic cough which has not changed in severity but has had increased sputum production. Also reporting some nausea but no vomiting. Tolerating diet. Reports 2/10 pain in the R hip. Has not been OOB yet. She denies fevers, chills, st, congestion, abd pain, n/v/d, h/a, palpitations, orthopnea, edema, chest pain. Review of Systems Review of Systems: Yes all other systems are reviewed and are negative [facility] Medical History Pulmonary edema Resides in senior care facility Heart failure with preserved ejection fraction Substance abuse Acute exacerbation of chronic obstructive pulmonary disease Lumbar spondylosis Trochanteric bursitis of right hip Obesity Nicotine dependence, cigarettes, uncomplicated History of sepsis Urinary frequency COPD (chronic obstructive pulmonary disease) Exercise hypoxemia Smoker Bilateral hip pain Dyslipidemia Lower back pain Anxiety associated with depression Somatic dysfunction of left sacroiliac joint Family History Father Substance use disorder Mother Substance use disorder Mental health disorder Maternal Grandmother Substance use disorder Mental health disorder Surgical History History of section Social History Household Members: Spouse Housing: House Housing Other:: currently @ [facility] for rehab Are you a primary reservoir caretaker to a significant other at home: No Do you presently have visiting nurse or other home services: No Unable to assess alcohol history related to: Unable to respond Alcohol intake: former Patient Tobacco Use Status: Current everyday Tobacco user Tobacco use type: Cigarette Cigarette Packs Per Day: 0.5 Cigarettes Per Day: 2 Years Smoked: 30 Smoked in Last 30 Days: Yes e-Cigarette/Vaping Use: Never Used Patient Interested in Nicotine Replacement: Yes Second Hand Smoke Exposure: No Use of substances other than those prescribed or required for medical reasons: No Substance Use Type: Crack/Cocaine Currently Displaying Signs/Symptoms of Drug Intoxication Withdrawal: No Have you been hit, kicked, punched, or otherwise hurt by someone within the past year? If so, by whom?: No Do you feel safe in your current relationship?: Yes Is there a partner from a previous relationship who is making you feel unsafe now?: No Are you made to feel afraid or neglected: No Advance Directives: No Advance Directives Information Provided: No Do you have a plan to hurt others: No Plan Recently lost weight without trying: No Eating poorly because of decreased appetite: No Nutrition Risks: No Nutritional Risk Patient : No service: No Current occupational status: employed Current occupation: [employer] Cognitive needs: No Hearing needs: No Vision needs: No Meds Allergies Allergy/AdvReac Type Severity Reaction Status Date / Time lansoprazole [Prevacid] Allergy Severe anaphylaxis Verified 07/08/24 20:05 cyclobenzaprine Allergy Intermediate Rash Verified 07/08/24 20:05 [From Flexeril] Active Medications: Current Medications Acetaminophen (Acetaminophen 325 Mg Tablet) 650 mg PO Q6H PRN PRN Reason: Pain, Mild 1-3,fever,headache Albuterol/Ipratropium (Albuterol/Iprat 2.5/0.5mg 3 Ml Ampul.Neb) 3 ml INHALE Q4H PRN PRN Reason: Shortness of Breath/Wheezing Last Admin: 07/09/24 09:19 Dose: 3 ml Budesonide (Budesonide 180 Mcg Aer.Pow.Ba) 2 puff INHALE RBID [facility] Last Admin: 07/09/24 09:20 Dose: Not Given Clonidine HCl (Clonidine Hcl 0.1 Mg Tablet) 0.1 mg PO TID [facility]; Protocol Last Admin: 07/09/24 08:40 Dose: 0.1 mg Furosemide (Furosemide 20 Mg Tablet) 20 mg PO DAILY [facility]; Protocol Last Admin: 07/09/24 08:40 Dose: 20 mg Gabapentin (Gabapentin 600 Mg Tablet) 600 mg PO TID [facility] Last Admin: 07/09/24 09:41 Dose: 600 mg Lactated Ringer's (Lr) 1,000 mls @ 100 mls/hr IVCONT .Q10H [facility] Last Infusion: 07/09/24 09:28 Dose: Infused Melatonin (Melatonin 3 Mg Tablet) 6 mg PO BEDTIME PRN PRN Reason: Insomnia Oxycodone HCl (Oxycodone Hcl Immed Release 5 Mg Tablet) 5 mg PO Q4H PRN PRN Reason: Pain, Moderate(Pain Scale 4-6) Last Admin: 07/09/24 06:50 Dose: 5 mg Polyethylene Glycol (Polyethylene Glycol 3350 17 Gm Powd.Pack) 17 gm PO DAILY PRN PRN Reason: Constipation Sodium Chloride (0.9 % Sodium Chloride Flush 3 Ml Syringe) 3 ml IVFLUSH QSHIFT [facility] Last Admin: 07/09/24 08:42 Dose: Not Given Venlafaxine HCl (Venlafaxine Hcl 25 Mg Tablet) 150 mg PO BID [facility] Last Admin: 07/09/24 08:41 Dose: 150 mg Home Medications ?Medication ?Instructions ?Recorded ?Confirmed ?Last Taken ?Type baclofen 10 mg tablet 10 mg PO BID PRN muscle spasms 07/09/24 07/09/24 Unknown History docusate sodium 100 mg capsule 100 mg PO BID PRN Constipation 07/09/24 07/09/24 Unknown History fluticasone propionate 50 1 spray intranasal Q12H PRN 07/09/24 07/09/24 Unknown History mcg/actuation nasal Allergy Symptoms spray,suspension venlafaxine 150 mg 150 mg PO DAILY 07/09/24 07/09/24 07/08/24 History capsule,extended release 24 hr Physical Exam Vital Signs and Narrative: Vital Signs: Last Vital Signs Temp 98.2 F 07/09/24 07:42 Pulse 90 07/09/24 07:42 Resp 18 07/09/24 07:42 BP 112/58 L 07/09/24 07:42 Pulse Ox 93 07/09/24 07:42 O2 Del Method Nasal Cannula 07/09/24 07:42 O2 Flow Rate 2.0 07/09/24 07:42 Oxygen Flow Rate 3 07/08/24 22:23 BMI result Body Mass Index 41.7 Constitutional - Awake and Alert, No apparent distress Eyes - PERRLA, EOMI Cardiovascular - S1S2, RRR, 2+ edema, no jvd Respiratory - Normal lung expansion, Normal respiratory effort, No respiratory distress, scattered faint wheezing, Bilateral rales Gastrointestinal - NT / ND; +BS; No rebound or guarding Extremities - no calf tenderness bilaterally, no swelling. R hip immobilized Skin - Warm/Dry Neurological - Alert & oriented x3 Psychological - Appropriate affect Assessment and Plan (1) Dislocation of prosthesis of right hip joint: Status: Acute Plan 58-year-old female with history of COPD with exercise hypoxemia with p.r.n. O2, hyperlipidemia, mood disorder, chronic low back pain, heart failure with preserved ejection fraction, hx cocaine use (reports last use 20 years ago- recent UDS negative for cocaine), who is a current 1/2 PPD cigarette smoker admitting to orthopedic surgery due to dislocation of right MAMADOU. Consult placed to hospitalist service for medical management and recent pneumonia. COPD exacerbation with chronic hypoxemic respiratory failure Negative for covid, flu, rsv Check cxr Continue prednisone taper Given change in sputum production, add azithromycin 500mg x3 days for pleiotropic effect (discussed with ortho surgery) duonebs prn Continue O2 with goal 88-92% (COPD protocol). RT assessment on dc 06/19 was 2L at rest and 4L with exertion Continue maintenance inhalers HFpEF does have rales on exam with edema. 3.5 wt gain since last admission. [place]. No orthopnea DC IVF (received 1.2L since arrival), resume lasix and jardiance Check BNP, BMP CXR ordered Cigarette smoking NRT as ordered cessation advised HX cocaine abuse check UDS Mood disorder continue effexor, trazodone hold clonidine to prevent hypotension Chronic low back pain continue gabapentin, baclofen Will continue following for results
--- NOTE | 2024-07-09 10:01 | PM.PNORT ---
Subjective Subjective Date of Service: 07/09/24 Physical Exam Vital Signs: Vital Signs: Last Vital Signs Temp 98.2 F 07/09/24 07:42 Pulse 90 07/09/24 07:42 Resp 18 07/09/24 07:42 BP 112/58 L 07/09/24 07:42 Pulse Ox 93 07/09/24 07:42 O2 Del Method Nasal Cannula 07/09/24 07:42 O2 Flow Rate 2.0 07/09/24 07:42 Oxygen Flow Rate 3 07/08/24 22:23 BMI result Body Mass Index 41.7 Procedures Date of Service Date of Service: 07/09/24 Progress Note: A&P Assessment and plan (1) Dislocation of prosthesis of right hip joint: Status: Acute Assessment and Plan: Rody is a 50-year-old woman who is over 2 months status post right hip replacement. She was doing well but approximately 1-2 weeks ago states she dislocated her right hip with strengthening exercises she was doing at home. She states that it ?popped? back in and she was sore but continued on her daily activities. Approximately a week later a similar event happened where she was on the floor for about an hour before it popped back in again. Again she continued to engage in daily activities until last night when she presented to the emergency room with a dislocated right hip. Radiographs demonstrated an anterior dislocated right hip. It was relocated under conscious sedation quite easily. Today she is in bed in no acute distress. Her imaging demonstrates a right total hip replacement. The acetabulum and femoral components appear to be appropriately positioned with no obvious hardware complications. I had a long discussion with her regarding treatment options. She is markedly unstable and dislocating with minimal activity. I recommend a revision of her right hip. She is amenable to that. In addition she has been on a prednisone taper since being seen for COPD flair recently. She has been on antibiotics recently for PNA. She is audibly wheezing but her sats have been in the high 90s on 2l nasal cannula. Time Spent With Patient Time: Total time managing care of this patient today ____ minutes. Quality Stroke Does the patient have a stroke diagnosis?: No VTE Prior VTE?: No VTE Risk Level:: Surgical - moderate VTE Device Contraindication: N/A - Device Ordered VTE Drug Contraindication: Treatment Not Indicated
--- NOTE | 2024-07-09 10:02 | PHA.MEDREC ---
Addendum entered by Bernardo Angeles RPh 07/09/24 10:31: MED REC CHECKED BY [facility] Original Note: Pharmacy Consult ? Medication Reconciliation Pharmacy has completed the medication reconciliation. Spoke with patient to confirm. She is no longer taking oxycodone. She started 3 tabs daily of her prednisone taper yesterday. She uses venlafaxine 150 mg caps and takes it once daily (rx says bid but patient cannot tolerate it). She uses baclofen as needed. She took medications yesterday.
[2024-07-09 10:28] LABS: MANUAL DIFF FLAG NO
[2024-07-09 10:36] LABS: Basophils Percent Auto 0.2 % (0-2); Eosinophils Absolute Auto 0.3 X10*3/uL (0.0-0.4); Imm Gran Abs Auto 0.07 X10*3/uL (0.00-0.03); Imm Gran Pct Auto 0.6 % (0.0-0.4); Lymphocytes Absolute Auto 3.1 X10*3/uL (1.2-4.9); Lymphocytes Percent Auto 24.5 % (20-40); Mean Corpuscular Hemoglobin 26.7 pg (27.0-33.0); Mean Corpuscular Volume 88.9 fL (80.0-98.0); Mean Platelet Volume 9.2 fL (9.4-12.3); Monocytes Absolute Auto 0.9 X10*3/uL (0.1-1.2); Monocytes Percent Auto 7.4 % (2-11); Neutrophils Absolute Auto 8.3 x10*3/uL (2.0-8.3); Neutrophils Percent Auto 65.3 % (45-73); Platelet Count 320 X10*3/uL (160-400); Red Cell Distribution Width 17.2 % (11.0-16.0); White Blood Count 12.6 X10*3/uL (4.8-10.8)
[2024-07-09 10:49] LABS: Anion Gap 12 (12-20); Blood Urea Nitrogen 9 mg/dL (9-16); Calcium 8.7 mg/dL (8.4-10.2); Carbon Dioxide 32 mmol/L (22-29); Chloride 103 mmol/L (96-108); Creatinine Clr Calc Pharmacy 114.6; Estimated Glomerular Filt Rate > 60; Glucose Random 111 mg/dL (60-115); Potassium 3.7 mmol/L (3.3-5.1); Sodium 143 mmol/L (135-145)
[2024-07-09 10:56] LABS: B Type Natriuretic Peptide 19 pg/mL (<100)
--- NOTE | 2024-07-09 11:31 | MHC.CM.PN ---
Addendum entered by Jackeline Trujillo 07/09/24 11:46: New oxygen (2weeks per pt) 2L via [place]. Nina is the oxygen provider Original Note: 2 Months ago patient underwent R MAMADOU with Dr Sweeney. Patient went to [place] [facility] rehab post op. Home services were not set up by the [facility]. Patient now presents with a dislocated hip. S/P surgical intervention under sedation. Patient is independent baseline. A copy of her HCP has been requested. DP Home with services. She will arrange for private transportation.
[2024-07-09] MEDS: predniSONE 10 MG TABLET 30 MG PO (11:32)
[2024-07-09] MEDS: Azithromycin 500 MG TABLET PO (11:32)
[2024-07-09 15:22] LABS: MRSA Nasal PCR POSITIVE (Negative); SA Nasal PCR POSITIVE (Negative)
[2024-07-09] MEDS: cefEPime HCl/D5W 2 GM/50 ML PIGGYBACK IV (16:14)
[2024-07-09 16:16] LABS: Lactic Acid 1.7 mmol/L (0.5-2.0)
[2024-07-09 16:30] LABS: Amphetamine Screen Urine Not Detected (Not Detect); Barbiturates, Urine Not Detected (Not Detect); Benzodiazepines Screen Urine Not Detected (Not Detect); Buprenorphine Scr Not Detected (Not Detect); Cannabinoid Screen Urine Not Detected (Not Detect); Cocaine Screen Urine Not Detected (Not Detect); Fentanyl, urine Not Detected (Not Detect); Methadone Screen, Urine Not Detected (Not Detect); Opiate Screen Urine Not Detected (Not Detect); Oxycodone Screen Urine Positive (Not Detect); Phencyclidine Screen Urine Not Detected (Not Detect)
[2024-07-09] MEDS: vancomycin/NS 2,000 MG/500 ML PLAST..BAG 250 MG IV (16:56)
[2024-07-09 17:13] LABS: Influenza A PCR NEGATIVE (Negative); Influenza B PCR NEGATIVE (Negative); Resp Syncy Virus RNA Qual PCR NEGATIVE (Negative); SARS COV2 PCR INHOUSE NEGATIVE (Negative)
--- NOTE | 2024-07-09 17:55 | PHA.PROG ---
Admission Date/Time: July 08, 2024 22:00 Indication: RESPIRATORY Weight in k.8 kg Adjusted body weight in Kg: [place] body weight in Kg: Obesity Dosing Indication % IBW: Serum Creatinine - Last 168 Hours 07/09/24 10:09 Creatinine 0.58 Estimated CrCl and GFR - Last 168 Hours 07/09/24 10:09 Estim Creat Clear Calc 114.6 Estimated GFR > 60 Vancomycin Loading Dose: 2000 MG Current Vancomycin Dosing Regimen: 1500 MG Q12H Vancomycin Monitoring using AUC goal of 400 - 600 range with trough as surrogate marker: UPP=020 TROUGH=16.5 Date and Time for next Vancomycin Level to be drawn: 07/10/24 @1500 Pharmacist Comments on Vancomycin Plan: Vancomycin dosing will take advantage of [employer] as a clinical decision support tool that uses Bayesian modeling to calculate individual patient's pharmacokinetic parameters and forecast the patient's drug concentration time course with the target goal AUC 24 range of 400 - 600 mg/L/hr.
[2024-07-09] MEDS: Budesonide 180 MCG AER.POW.BA 2 PUFF INHALE (19:27)
[2024-07-10] VITALS (9 sets, daily range): BP systolic 98–160; BP diastolic 61–91; PULSE 83–99; RESP 16–20; TEMP 36–37.4; O2SAT 91–96
[2024-07-10] MEDS: cefEPime HCl/D5W 2 GM/50 ML PIGGYBACK IV ×4 (00:01→23:14)
[2024-07-10] MEDS: oxyCODONE HCl Immed Release 5 MG TABLET PO ×4 (04:00→23:13)
[2024-07-10] MEDS: vancomycin HCL 1,500 MG in 0.9 % Sodium Chloride 500 ML 333.33 MG IV (05:33)
[2024-07-10 07:06] LABS: Creatinine Clr Calc Pharmacy 113.1; Estimated Glomerular Filt Rate > 60
[2024-07-10] MEDS: Gabapentin 600 MG TABLET PO ×2 (07:49→15:48)
[2024-07-10] MEDS: predniSONE 10 MG TABLET 30 MG PO (07:49)
[2024-07-10] MEDS: Furosemide 20 MG TABLET PO (07:49)
[2024-07-10] MEDS: Venlafaxine HCL 25 MG TABLET 150 MG PO (07:50)
[2024-07-10] MEDS: 0.9 % Sodium Chloride Flush 3 ML SYRINGE IVFLUSH ×3 (07:55→23:15)
[2024-07-10] MEDS: Budesonide 180 MCG AER.POW.BA 2 PUFF INHALE ×2 (07:59→18:59)
--- NOTE | 2024-07-10 08:10 | PM.PNORT ---
Subjective Subjective Date of Service: 07/10/24 Interval history: 58-year-old female admitted to the hospital after recurrent right hip MAMADOU dislocations Found to have possible hospital-acquired pneumonia on chest x-ray, meets sepsis criteria Today, patient reports that she is feeling good, has minimal discomfort in the right hip Abduction pillow has been in place when she is in bed No acute events overnight No other acute complaints or concerns at this time Physical Exam Vital Signs: Vital Signs: Last Vital Signs Temp 96.8 F 07/10/24 07:45 Pulse 83 07/10/24 08:02 Resp 18 07/10/24 08:02 BP 115/69 07/10/24 07:45 Pulse Ox 95 07/10/24 07:45 O2 Del Method Nasal Cannula 07/10/24 07:45 O2 Flow Rate 2.0 07/10/24 07:45 Oxygen Flow Rate 3 07/08/24 22:23 BMI result Body Mass Index 38.2 Extrem: Other: abduction pillow clean, dry, intact no visible or palpable deformity, shortening, rotation of the right lower extremity No evidence of surrounding erythema, ecchymosis No evidence of infection Patient is able to flex and extend the digits of the left foot without difficulty Compartments soft, nontender Distal sensation intact Capillary refill brisk Procedures Date of Service Date of Service: 07/10/24 Progress Note: A&P Assessment and plan (1) Dislocation of prosthesis of right hip joint: Status: Acute Plan 1. 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 Quality Stroke Does the patient have a stroke diagnosis?: No VTE Prior VTE?: No VTE Risk Level:: Surgical - moderate VTE Device Contraindication: N/A - Device Ordered VTE Drug Contraindication: Treatment Not Indicated
[2024-07-10] MEDS: Azithromycin 500 MG TABLET PO (11:49)
[2024-07-10] MEDS: Albuterol/Iprat 2.5/0.5MG 3 ML AMPUL.NEB INHALE (12:15)
--- NOTE | 2024-07-10 12:45 | MHC.CM.PN ---
[facility] has accepted pt
--- NOTE | 2024-07-10 13:15 | MHC.CM.PN ---
pt will go home with [facility]
--- NOTE | 2024-07-10 14:15 | P.PNIM_ITS ---
Subjective Subjective Date of Service: 07/10/24 Interval History: No acute issues overnight. Breathing still bothersome Review of Systems Denies chest pain Admits shortness of breath that has essentially not changed Denies nausea vomiting diarrhea Denies fever chills Physical Exam 2 Vital Signs: Vital Signs: Last Vital Signs Temp 99.4 F 07/10/24 11:48 Pulse 85 07/10/24 11:48 Resp 16 07/10/24 11:48 BP 112/68 07/10/24 11:48 Pulse Ox 92 07/10/24 11:48 O2 Del Method Nasal Cannula 07/10/24 11:48 O2 Flow Rate 2.0 07/10/24 11:48 Oxygen Flow Rate 3 07/08/24 22:23 BMI result Body Mass Index 38.2 Const: Other: Awake alert no acute distress Resp: Other: Diminished at bases left greater than right with diffuse expiratory wheezes Cardio: Other: No S4; positive S1-S2; no S3 murmurs rubs or gallops GI: Other: Soft nontender nondistended normoactive bowel sounds Extrem: Other: No edema bilaterally Objective Data Active Medications Acetaminophen (Acetaminophen 325 Mg Tablet) 650 mg PO Q6H PRN PRN Reason: Pain, Mild 1-3,fever,headache Albuterol/Ipratropium (Albuterol/Iprat 2.5/0.5mg 3 Ml Ampul.Neb) 3 ml INHALE Q4H PRN PRN Reason: Shortness of Breath/Wheezing Last Admin: 07/10/24 12:15 Dose: 3 ml Documented By: LEXI Azithromycin (Azithromycin 500 Mg Tablet) 500 mg PO Q24H [facility] Stop: 07/11/24 11:01 Last Admin: 07/10/24 11:49 Dose: 500 mg Documented By: DELLA Budesonide (Budesonide 180 Mcg Aer.Pow.Ba) 2 puff INHALE RBID [facility] Last Admin: 07/10/24 07:59 Dose: 2 puff Documented By: CARY Docusate Sodium (Docusate Sodium 100 Mg Capsule) 100 mg PO BID PRN PRN Reason: Constipation Furosemide (Furosemide 20 Mg Tablet) 20 mg PO DAILY [facility]; Protocol Last Admin: 07/10/24 07:49 Dose: 20 mg Documented By: LEXI Gabapentin (Gabapentin 600 Mg Tablet) 600 mg PO TID [facility] Last Admin: 07/10/24 07:49 Dose: 600 mg Documented By: LEXI Cefepime HCl (Maxipime) 2 gm in 50 mls @ 100 mls/hr IV Q8H [facility] Last Infusion: 07/10/24 08:47 Dose: Infused Documented By: LEXI Vancomycin HCl 1,500 mg/ (Sodium Chloride) 500 mls @ 333.333 mls/hr IV Q12H [facility] Last Infusion: 07/10/24 07:58 Dose: Infused Documented By: LEXI Melatonin (Melatonin 3 Mg Tablet) 6 mg PO BEDTIME PRN PRN Reason: Insomnia Oxycodone HCl (Oxycodone Hcl Immed Release 5 Mg Tablet) 5 mg PO Q4H PRN PRN Reason: Pain, Moderate(Pain Scale 4-6) Last Admin: 07/10/24 11:50 Dose: 5 mg Documented By: DELLA Pharmacy Consult (Consult Rx Vancomycin Dosing) 1 each MISCELLANE DAILY PRN PRN Reason: Consult order Polyethylene Glycol (Polyethylene Glycol 3350 17 Gm Powd.Pack) 17 gm PO DAILY PRN PRN Reason: Constipation Prednisone (Prednisone 10 Mg Tablet) 30 mg PO DAILY [facility]; Taper Stop: 07/20/24 10:26 Last Admin: 07/10/24 07:49 Dose: 30 mg Documented By: LEXI Sodium Chloride (0.9 % Sodium Chloride Flush 3 Ml Syringe) 3 ml IVFLUSH QSHIFT [facility] Last Admin: 07/10/24 07:55 Dose: 3 ml Documented By: LEXI Venlafaxine HCl (Venlafaxine Hcl 25 Mg Tablet) 150 mg PO BID [facility] Last Admin: 07/10/24 07:50 Dose: 150 mg Documented By: LEXI Labs 07/09/24 10:09 07/10/24 05:35 Labs: Laboratory Results - last 24 hr 07/09/24 07/09/24 07/09/24 14:00 15:48 16:11 Hold Purple Top Estim Creat Clear Calc Estimated GFR Lactic Acid 1.7 Nasal Screen MRSA (PCR) POSITIVE A Nasal S. aureus Screen POSITIVE A Nasal MRSA/S.aureus Interp SEE NOTE Urine Opiates Screen Not Detected Ur Buprenorphine Scrn Not Detected Ur Oxycodone Screen Positive H Urine Methadone Screen Not Detected Urine Fentanyl Screen Not Detected Ur Barbiturates Screen Not Detected Ur Phencyclidine Scrn Not Detected Ur Amphetamines Screen Not Detected U Benzodiazepines Scrn Not Detected Urine Cocaine Screen Not Detected U Marijuana (THC) Screen Not Detected Influenza Type A (PCR) Influenza Type B (PCR) RSV RNA Qual (PCR) SARS-CoV-2 RNA (RT-PCR) 07/09/24 07/10/24 16:30 05:35 Hold Purple Top SEE NOTE Estim Creat Clear Calc 113.1 Estimated GFR > 60 Lactic Acid Nasal Screen MRSA (PCR) Nasal S. aureus Screen Nasal MRSA/S.aureus Interp Urine Opiates Screen Ur Buprenorphine Scrn Ur Oxycodone Screen Urine Methadone Screen Urine Fentanyl Screen Ur Barbiturates Screen Ur Phencyclidine Scrn Ur Amphetamines Screen U Benzodiazepines Scrn Urine Cocaine Screen U Marijuana (THC) Screen Influenza Type A (PCR) NEGATIVE Influenza Type B (PCR) NEGATIVE RSV RNA Qual (PCR) NEGATIVE SARS-CoV-2 RNA (RT-PCR) NEGATIVE Assessment and Plan (1) Left lower lobe pneumonia: Status: Acute (2) COPD with exacerbation: Status: Acute (3) Dislocation of prosthesis of right hip joint: Status: Acute Plan 58-year-old female with history of COPD with exercise hypoxemia with p.r.n. O2, hyperlipidemia, mood disorder, chronic low back pain, heart failure with preserved ejection fraction, hx cocaine use (reports last use 20 years ago- recent UDS negative for cocaine), who is a current 1/2 PPD cigarette smoker admitting to orthopedic surgery due to dislocation of right MAMADOU. Consult placed to hospitalist service for medical management and recent pneumonia. 1.COPD exacerbation with chronic hypoxemic respiratory failure -chest x-ray with left lower lobe infiltrate; patient states this has been recurrent/chronic -poor response to oral prednisone; switch to IV methylprednisolone 60 mg q.6 hours -on azithromycin. We will add ceftriaxone given infiltrate -duonebs prn -continue O2 with goal 88-92% (COPD protocol). RT assessment on dc 3 was 2L at rest and 4L with exertion 2.HFpEF -stable and well compensated -BNP flat 3.Mood disorder -continue effexor, trazodone 4. Recurrent dislocation of hip prosthesis -to OR when medically acceptable Full code Lovenox Will continue following for results Quality Stroke Does the patient have a stroke diagnosis?: No VTE Prior VTE?: No VTE Risk Level:: Surgical - moderate VTE Device Contraindication: N/A - Device Ordered VTE Drug Contraindication: Treatment Not Indicated
--- NOTE | 2024-07-10 15:46 | MHC.CM.PN ---
per rounds pt not ready for dc when dcd [facility] will accept pt
[2024-07-10] MEDS: methylPREDNISolone Sod Succ 125 MG/2 ML VIAL 60 MG IVPUSH ×2 (15:48→20:13)
[2024-07-10 16:30] LABS: Vancomycin Random 16.7 mcg/mL (15-20)
[2024-07-10] MEDS: vancomycin HCL 1,250 MG in 0.9 % Sodium Chloride 250 ML 166.67 MG IV (18:15)
--- NOTE | 2024-07-10 18:39 | PC.NURSE ---
Pt seen for med pass at approx 1820. C/o episodes of lightheadedness and diaphoresis. MD notified at approx 1832. VSS, BP 117/70 HR 96 O2 92%. aware. No new orders or interventions at this time. Pt educated ground operations superintendent croft utilization
[2024-07-11] VITALS (9 sets, daily range): BP systolic 110–130; BP diastolic 55–79; PULSE 85–104; RESP 16–18; TEMP 36–36.7; O2SAT 90–96
[2024-07-11] MEDS: methylPREDNISolone Sod Succ 125 MG/2 ML VIAL 60 MG IVPUSH ×3 (03:20→15:36)
[2024-07-11] MEDS: vancomycin HCL 1,250 MG in 0.9 % Sodium Chloride 250 ML 166.67 MG IV (06:26)
[2024-07-11] MEDS: Budesonide 180 MCG AER.POW.BA 2 PUFF INHALE ×2 (06:36→18:49)
[2024-07-11] MEDS: Albuterol/Iprat 2.5/0.5MG 3 ML AMPUL.NEB INHALE ×2 (06:36→16:27)
[2024-07-11 07:03] LABS: Basophils Percent Auto 0.1 % (0-2); Hemoglobin 13.8 g/dl (12.0-16.0); Imm Gran Abs Auto 0.06 X10*3/uL (0.00-0.03); Imm Gran Pct Auto 0.5 % (0.0-0.4); Lymphocytes Absolute Auto 0.5 X10*3/uL (1.2-4.9); Lymphocytes Percent Auto 3.9 % (20-40); MANUAL DIFF FLAG SCAN; Mean Corpuscular Hemoglobin 26.2 pg (27.0-33.0); Mean Corpuscular Volume 87.5 fL (80.0-98.0); Monocytes Absolute Auto 0.2 X10*3/uL (0.1-1.2); Monocytes Percent Auto 1.7 % (2-11); Neutrophils Absolute Auto 11.5 x10*3/uL (2.0-8.3); Neutrophils Percent Auto 93.8 % (45-73); Platelet Count 333 X10*3/uL (160-400); Red Blood Count 5.26 X10*6/uL (4.20-5.50); Red Cell Distribution Width 17.1 % (11.0-16.0); SCAN SMEAR FLAG 1; White Blood Count 12.3 X10*3/uL (4.8-10.8)
[2024-07-11 07:29] LABS: Alanine Aminotransferase 17 U/L (0-31); Albumin Level 3.7 g/dL (3.5-5.0); Alkaline Phosphatase 70 U/L (39-117); Anion Gap 10 (12-20); Aspartate Amino Transferase 14 U/L (5-31); Bilirubin Total 0.4 mg/dL (0.0-1.0); Blood Urea Nitrogen 19 mg/dL (9-16); Calcium 9.5 mg/dL (8.4-10.2); Carbon Dioxide 31 mmol/L (22-29); Chloride 106 mmol/L (96-108); Creatinine Clr Calc Pharmacy 113.1; Estimated Glomerular Filt Rate > 60; Glucose Fasting 129 mg/dL (60-99); Potassium 4.8 mmol/L (3.3-5.1); Sodium 142 mmol/L (135-145); Total Protein 6.3 g/dL (6.5-8.0)
[2024-07-11 07:34] LABS: SLIDE REVIEW VERIFIED
[2024-07-11] MEDS: Gabapentin 600 MG TABLET PO (09:06)
[2024-07-11] MEDS: Furosemide 20 MG TABLET PO (09:06)
[2024-07-11] MEDS: Venlafaxine HCL 25 MG TABLET 150 MG PO (09:06)
[2024-07-11] MEDS: cefEPime HCl/D5W 2 GM/50 ML PIGGYBACK IV ×2 (09:06→18:00)
[2024-07-11] MEDS: 0.9 % Sodium Chloride Flush 3 ML SYRINGE IVFLUSH ×3 (09:06→21:15)
[2024-07-11] MEDS: Azithromycin 500 MG TABLET PO (12:10)
[2024-07-11] MEDS: oxyCODONE HCl Immed Release 5 MG TABLET PO ×2 (12:18→21:13)
--- NOTE | 2024-07-11 12:50 | PC.NURSE ---
Pt OOB to chair with standy assist. LEAD SECURITY OFFICER attempted to place chair alarm on pt but pt demanded LEAD SECURITY OFFICER does not place alarm. Pt educated by this RN on reason for high fall risk status, pt confirms understanding but continues to refuse alarm, stating she goes to the bathroom too frequently and can't wait for staff. Call croft within reach. Walker within reach. Non-slip socks in place. High fall risk signage outside of pt room.
--- NOTE | 2024-07-11 16:10 | PM.PNORT ---
Subjective Subjective Date of Service: 07/11/24 Interval history: 58-year-old female admitted to the hospital after recurrent right hip MAMADOU dislocations Found to have possible hospital-acquired pneumonia on chest x-ray, meets sepsis criteria Today, patient reports that she is feeling good, has minimal discomfort in the right hip AResting in recliner No acute events overnight No other acute complaints or concerns at this time Physical Exam Vital Signs: Vital Signs: Last Vital Signs Temp 98.1 F 07/11/24 15:03 Pulse 104 H 07/11/24 15:03 Resp 18 07/11/24 15:03 BP 128/75 07/11/24 15:03 Pulse Ox 90 L 07/11/24 15:03 O2 Del Method Room Air 07/11/24 15:03 O2 Flow Rate 2.0 07/11/24 07:56 Oxygen Flow Rate 3 07/08/24 22:23 BMI result Body Mass Index 38.2 Extrem: Other: patient resting in recliner without abd pillow Procedures Date of Service Date of Service: 07/11/24 Progress Note: A&P Assessment and plan (1) Dislocation of prosthesis of right hip joint: Status: Acute Plan 1. 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 Quality Stroke Does the patient have a stroke diagnosis?: No VTE Prior VTE?: No VTE Risk Level:: Surgical - moderate VTE Device Contraindication: N/A - Device Ordered VTE Drug Contraindication: Treatment Not Indicated
--- NOTE | 2024-07-11 16:50 | P.PNIM_ITS ---
Subjective Subjective Date of Service: 07/11/24 Interval History: feeling better since yesterday, persistent cough with decreased phlegm production, feels shaky, denies fever, no chills tolerating diet no other acute events overnight, 92% on 2 L of nasal cannula Review of Systems all other system reviewed and are negative Physical Exam 2 Vital Signs: Vital Signs: Last Vital Signs Temp 98.1 F 07/11/24 15:03 Pulse 88 07/11/24 16:30 Resp 18 07/11/24 16:30 BP 128/75 07/11/24 15:03 Pulse Ox 90 L 07/11/24 15:03 O2 Del Method Room Air 07/11/24 15:03 O2 Flow Rate 2.0 07/11/24 07:56 Oxygen Flow Rate 3 07/08/24 22:23 BMI result Body Mass Index 38.2 Const: Other: Gen: in no acute distress HEENT: sclera anicteric, moist mucus membranes Neck: supple Lungs: no respiratory distress, no wheeze Heart: regular rate and rhythm, no murmurs Abd: soft, non-tender, non-distended Ext: no edema Skin: warm/well-perfused Neuro: alert and oriented x3, no focal findings Psych: appropriate affect Objective Data Active Medications Acetaminophen (Acetaminophen 325 Mg Tablet) 650 mg PO Q6H PRN PRN Reason: Pain, Mild 1-3,fever,headache Albuterol/Ipratropium (Albuterol/Iprat 2.5/0.5mg 3 Ml Ampul.Neb) 3 ml INHALE Q4H PRN PRN Reason: Shortness of Breath/Wheezing Last Admin: 07/11/24 16:27 Dose: 3 ml Documented By: MIROSLAVA Budesonide (Budesonide 180 Mcg Aer.Pow.Ba) 2 puff INHALE RBID [facility] Last Admin: 07/11/24 06:36 Dose: 2 puff Documented By: INGA Docusate Sodium (Docusate Sodium 100 Mg Capsule) 100 mg PO BID PRN PRN Reason: Constipation Furosemide (Furosemide 20 Mg Tablet) 20 mg PO DAILY [facility]; Protocol Last Admin: 07/11/24 09:06 Dose: 20 mg Documented By: LEXI Gabapentin (Gabapentin 600 Mg Tablet) 600 mg PO TID [facility] Last Admin: 07/11/24 15:26 Dose: Not Given Documented By: LEXI Non-Admin Reason: Patient Refused Cefepime HCl (Maxipime) 2 gm in 50 mls @ 100 mls/hr IV Q8H [facility] Last Infusion: 07/11/24 09:20 Dose: 0 mls/hr Documented By: LEXI Vancomycin HCl 1,250 mg/ (Sodium Chloride) 250 mls @ 166.667 mls/hr IV Q12H [facility] Last Infusion: 07/11/24 09:09 Dose: Infused Documented By: LEXI Melatonin (Melatonin 3 Mg Tablet) 6 mg PO BEDTIME PRN PRN Reason: Insomnia Methylprednisolone Sodium Succinate (Methylprednisolone Sod Succ 125 Mg/2 Ml Vial) 60 mg IVPUSH Q6H [facility] Last Admin: 07/11/24 15:36 Dose: 60 mg Documented By: LEXI Oxycodone HCl (Oxycodone Hcl Immed Release 5 Mg Tablet) 5 mg PO Q4H PRN PRN Reason: Pain, Moderate(Pain Scale 4-6) Last Admin: 07/11/24 12:18 Dose: 5 mg Documented By: LEXI Pharmacy Consult (Consult Rx Vancomycin Dosing) 1 each MISCELLANE DAILY PRN PRN Reason: Consult order Polyethylene Glycol (Polyethylene Glycol 3350 17 Gm Powd.Pack) 17 gm PO DAILY PRN PRN Reason: Constipation Sodium Chloride (0.9 % Sodium Chloride Flush 3 Ml Syringe) 3 ml IVFLUSH QSHIFT [facility] Last Admin: 07/11/24 15:37 Dose: 3 ml Documented By: LEXI Venlafaxine HCl (Venlafaxine Hcl 25 Mg Tablet) 150 mg PO BID [facility] Last Admin: 07/11/24 09:06 Dose: 150 mg Documented By: LEXI Labs 07/11/24 06:53 07/11/24 06:53 Labs: Laboratory Results - last 24 hr 07/11/24 06:53 MCV 87.5 MCH 26.2 L MCHC 30.0 L RDW 17.1 H Plt Count 333 MPV 9.0 L Immature Gran % (Auto) 0.5 H Neut % (Auto) 93.8 H Lymph % (Auto) 3.9 L [place] % (Auto) 1.7 L Eos % (Auto) 0.0 Baso % (Auto) 0.1 Lymph # (Auto) 0.5 L [place] # (Auto) 0.2 Eos # (Auto) 0.0 Baso # (Auto) 0.0 Abs Immat Gran (auto) 0.06 H Absolute Neuts (auto) 11.5 H Absolute Nucleated RBC 0.000 Nucleated RBC % (auto) 0.0 Smear Tech's Comments VERIFIED Anion Gap 10 L Estim Creat Clear Calc 113.1 Estimated GFR > 60 Fasting Glucose 129 H Calcium 9.5 D Total Bilirubin 0.4 AST 14 ALT 17 Alkaline Phosphatase 70 Total Protein 6.3 L Albumin 3.7 Microbiology Microbiology Results: Microbiology 07/09/24 15:48 Blood Culture - Preliminary Blood - Venous No growth after 24 hours. 07/09/24 15:48 Blood Culture - Preliminary Blood - Venous No growth after 24 hours. Assessment and Plan (1) Left lower lobe pneumonia: Status: Acute (2) Dislocation of prosthesis of right hip joint: Status: Acute (3) COPD with exacerbation: Status: Acute Plan 58-year-old female with history of COPD with exercise hypoxemia with p.r.n. O2, hyperlipidemia, mood disorder, chronic low back pain, heart failure with preserved ejection fraction, hx cocaine use (reports last use 20 years ago- recent UDS negative for cocaine), who is a current 1/2 PPD cigarette smoker admitting to orthopedic surgery due to dislocation of right MAMADOU. Consult placed to hospitalist service for medical management and recent pneumonia. 1.Acute COPD exacerbation with chronic hypoxemic respiratory failure and healthcare associated pneumonia/ sepsis with multiple recent admissions - feeling better this a.m. -chest x-ray with left lower lobe infiltrate - CT chest showed new mild ground-glass opacity right middle lobe likely infectious/ inflammatory 3 to six-month follow-up is recommended, stable pulmonary nodules, atelectasis or scarring with mild elevation of left hemidiaphragm, emphysema and bronchial wall thickening secretions in the airways continue IV vancomycin and IV cefepime started on 07/09 ,duonebs and wean IV steroids, add scheduled cough medications, encourage incentive spirometry -continue O2 with goal 88-92% (COPD protocol). RT assessment on dc 06/19 was 2L at rest and 4L with exertion - blood cultures x2 showed no growth/ch mrsa nares pos 2.HFpEF -stable and well compensated -BNP 19 3.Mood disorder -continue effexor, trazodone 4. Recurrent dislocation of RT. hip prosthesis -to OR when medically acceptable 5. class 2 obesity recommend low-calorie diet Full code Lovenox Quality Stroke Does the patient have a stroke diagnosis?: No VTE Prior VTE?: No VTE Risk Level:: Surgical - moderate VTE Device Contraindication: N/A - Device Ordered VTE Drug Contraindication: Treatment Not Indicated
[2024-07-11 17:12] LABS: Vancomycin Random 12.7 mcg/mL (15-20)
[2024-07-11] MEDS: vancomycin HCL 1,500 MG in 0.9 % Sodium Chloride 500 ML 333.33 MG IV (19:21)
[2024-07-11] MEDS: guaiFENesin LA 600 MG TAB.ER.12H PO (21:13)
[2024-07-12] VITALS (10 sets, daily range): BP systolic 115–143; BP diastolic 66–83; PULSE 81–105; RESP 16–20; TEMP 36.1–36.6; O2SAT 92–97
[2024-07-12] MEDS: cefEPime HCl/D5W 2 GM/50 ML PIGGYBACK IV ×3 (00:03→17:01)
[2024-07-12] MEDS: methylPREDNISolone Sod Succ 125 MG/2 ML VIAL 40 MG IVPUSH ×2 (03:25→17:00)
--- NOTE | 2024-07-12 04:56 | PC.NURSE ---
Addendum entered by Cinthya Enriquez RN 07/12/24 06:22: Patient educated on contact precaution and reason for doing it. Appears to be upset about it. Told this medical technical writer every time you come in you tell me something new , she was referring to implementation of sequential stockings from last night. She refused Lovenox during day shift yesterday. Original Note: Noted patient had nasal screen positive for MRSA on 07/09/24. Contact precautions instituted.
[2024-07-12] MEDS: vancomycin HCL 1,500 MG in 0.9 % Sodium Chloride 500 ML 333.33 MG IV ×2 (06:08→18:26)
--- NOTE | 2024-07-12 07:28 | PM.PNORT ---
Subjective Subjective Date of Service: 07/12/24 Interval history: 58-year-old female admitted to the hospital after recurrent right hip MAMADOU dislocations Found to have possible hospital-acquired pneumonia on chest x-ray, meets sepsis criteria Today, patient reports that she is feeling good, has minimal discomfort in the right hip Resting in bed comfortably No acute events overnight No other acute complaints or concerns at this time Physical Exam Vital Signs: Vital Signs: Last Vital Signs Temp 98 F 07/12/24 06:46 Pulse 88 07/12/24 06:46 Resp 16 07/12/24 06:46 BP 143/75 H 07/12/24 06:46 Pulse Ox 97 07/12/24 06:46 O2 Del Method Nasal Cannula 07/12/24 06:46 O2 Flow Rate 2 07/12/24 06:46 Oxygen Flow Rate 3 07/08/24 22:23 BMI result Body Mass Index 38.2 Extrem: Other: patient resting in bed with abd pillow Procedures Date of Service Date of Service: 07/12/24 Progress Note: A&P Assessment and plan (1) Dislocation of prosthesis of right hip joint: Status: Acute Plan 1. 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 Quality Stroke Does the patient have a stroke diagnosis?: No VTE Prior VTE?: No VTE Risk Level:: Surgical - moderate VTE Device Contraindication: N/A - Device Ordered VTE Drug Contraindication: Treatment Not Indicated
[2024-07-12] MEDS: Budesonide 180 MCG AER.POW.BA 2 PUFF INHALE ×2 (07:59→18:14)
[2024-07-12 08:01] LABS: Creatinine Clr Calc Pharmacy 124.1; Estimated Glomerular Filt Rate > 60
[2024-07-12] MEDS: Albuterol/Iprat 2.5/0.5MG 3 ML AMPUL.NEB INHALE ×2 (08:02→16:49)
[2024-07-12] MEDS: oxyCODONE HCl Immed Release 5 MG TABLET PO (08:04)
[2024-07-12] MEDS: Venlafaxine HCL 25 MG TABLET 150 MG PO (08:04)
[2024-07-12] MEDS: guaiFENesin LA 600 MG TAB.ER.12H PO ×2 (08:05→20:27)
[2024-07-12] MEDS: Furosemide 20 MG TABLET PO (08:05)
[2024-07-12] MEDS: Gabapentin 600 MG TABLET PO ×3 (08:06→20:27)
[2024-07-12] MEDS: 0.9 % Sodium Chloride Flush 3 ML SYRINGE IVFLUSH ×2 (08:13→17:08)
--- NOTE | 2024-07-12 09:19 | P.F2F_ITS ---
Service Date Service Date: 07/12/24 Encounter Date of encounter: 07/12/24 Reasons for Services Signs and symptoms assessed: s/p LTH anterior dislocation Pt. is considered homebound due to an unstabe MAMADOU with multiple dislocations. Unable to drive, poor balance, poor gait mechanics. Reason for physical therapy: home safety and mobility, therapeutic exercises, restore joint function, gait/transfer training, assess need for DME and ADL training Reason for occupational therapy: home safety and mobility, therapeutic exercises, restore joint function, gait/transfer training and ADL training Homebound: Leaving the home is medically contraindicated at this time without the asist of a device and/or another person due th the listed conditions above and below. Reason homebound: unsteady gait / fall risk, leg weakness, pain with ambulation, poor balance / fall risk and unable to drive Certification: Based on the above findings, I certify that this patient is confined to the home and needs intermittent care home care, physical therapy and/or speech therapy, or continues to need occupational therapy. The patient is under my care, and I have initiated the establishment of the plan of care. The patient will be followed by a physician who will periodically review the plan of care. Time Spent With Patient Time: Total time managing care of this patient today ____ minutes.
--- NOTE | 2024-07-12 14:46 | MHC.CM.PN ---
pt is not medica;ly ready for dc per rounds says 1 to 2 days
[2024-07-12] MEDS: Acetaminophen 325 MG TABLET 650 MG PO (16:11)
[2024-07-12] MEDS: Enoxaparin Sodium 40 MG/0.4 ML SYRINGE SUBCUT (17:08)
--- NOTE | 2024-07-12 17:51 | P.PNIM_ITS ---
Subjective Subjective Date of Service: 07/12/24 Interval History: Being followed for chronic hypoxic respiratory failure due to pneumonia Feels significantly better, no shakiness shortness of breath and cough is improving, no fevers, no chills tolerating diet. Review of Systems All other system reviewed and are negative. Physical Exam 2 Vital Signs: Vital Signs: Last Vital Signs Temp 96.9 F 07/12/24 15:45 Pulse 100 07/12/24 16:50 Resp 16 07/12/24 16:50 BP 119/69 07/12/24 15:45 Pulse Ox 95 07/12/24 15:45 O2 Del Method Nasal Cannula 07/12/24 15:45 O2 Flow Rate 2 07/12/24 15:45 Oxygen Flow Rate 3 07/08/24 22:23 BMI result Body Mass Index 38.2 Const: Other: Gen: in no acute distress HEENT: sclera anicteric, moist mucus membranes Neck: supple Lungs: no respiratory distress, no wheeze ,diminished Heart: regular rate and rhythm, no murmurs Abd: soft, non-tender, non-distended Ext: no edema Skin: warm/well-perfused Neuro: alert and oriented x3, no focal findings Psych: appropriate affect Objective Data Active Medications Acetaminophen (Acetaminophen 325 Mg Tablet) 650 mg PO Q6H PRN PRN Reason: Pain, Mild 1-3,fever,headache Last Admin: 07/12/24 16:11 Dose: 650 mg Documented By: YULI Albuterol/Ipratropium (Albuterol/Iprat 2.5/0.5mg 3 Ml Ampul.Neb) 3 ml INHALE Q4H PRN PRN Reason: Shortness of Breath/Wheezing Last Admin: 07/12/24 16:49 Dose: 3 ml Documented By: CARY Budesonide (Budesonide 180 Mcg Aer.Pow.Ba) 2 puff INHALE RBID [facility] Last Admin: 07/12/24 07:59 Dose: 2 puff Documented By: DEJAN Docusate Sodium (Docusate Sodium 100 Mg Capsule) 100 mg PO BID PRN PRN Reason: Constipation Enoxaparin Sodium (Enoxaparin Sodium 40 Mg/0.4 Ml Syringe) 40 mg SUBCUT Q24H [facility] Last Admin: 07/12/24 17:08 Dose: 40 mg Documented By: YULI Furosemide (Furosemide 20 Mg Tablet) 20 mg PO DAILY [facility]; Protocol Last Admin: 07/12/24 08:05 Dose: 20 mg Documented By: YULI Gabapentin (Gabapentin 600 Mg Tablet) 600 mg PO TID [facility] Last Admin: 07/12/24 16:11 Dose: 600 mg Documented By: YULI Guaifenesin (Guaifenesin La 600 Mg Tab.Er.12h) 600 mg PO BID [facility] Last Admin: 07/12/24 08:05 Dose: 600 mg Documented By: YULI Cefepime HCl (Maxipime) 2 gm in 50 mls @ 100 mls/hr IV Q8H [facility] Last Infusion: 07/12/24 17:50 Dose: Infused Documented By: YULI Vancomycin HCl 1,500 mg/ (Sodium Chloride) 500 mls @ 333.333 mls/hr IV Q12H [facility] Last Infusion: 07/12/24 07:39 Dose: Infused Documented By: YULI Melatonin (Melatonin 3 Mg Tablet) 6 mg PO BEDTIME PRN PRN Reason: Insomnia Methylprednisolone Sodium Succinate (Methylprednisolone Sod Succ 125 Mg/2 Ml Vial) 40 mg IVPUSH Q12H [facility] Last Admin: 07/12/24 17:00 Dose: 40 mg Documented By: YULI Oxycodone HCl (Oxycodone Hcl Immed Release 5 Mg Tablet) 5 mg PO Q4H PRN PRN Reason: Pain, Moderate(Pain Scale 4-6) Last Admin: 07/12/24 08:04 Dose: 5 mg Documented By: YULI Pharmacy Consult (Consult Rx Vancomycin Dosing) 1 each MISCELLANE DAILY PRN PRN Reason: Consult order Polyethylene Glycol (Polyethylene Glycol 3350 17 Gm Powd.Pack) 17 gm PO DAILY PRN PRN Reason: Constipation Sodium Chloride (0.9 % Sodium Chloride Flush 3 Ml Syringe) 3 ml IVFLUSH QSHIFT [facility] Last Admin: 07/12/24 17:08 Dose: 3 ml Documented By: YULI Venlafaxine HCl (Venlafaxine Hcl 25 Mg Tablet) 150 mg PO BID [facility] Last Admin: 07/12/24 08:04 Dose: 150 mg Documented By: YULI Labs 07/11/24 06:53 07/12/24 07:36 Labs: Laboratory Results - last 24 hr 04/02/25 04/02/25 06:35 07:36 Hold Purple Top SEE NOTE Estim Creat Clear Calc 124.1 Estimated GFR > 60 Microbiology Microbiology Results: Microbiology 07/09/24 15:48 Blood Culture - Preliminary Blood - Venous No growth after 48 hours. 07/09/24 15:48 Blood Culture - Preliminary Blood - Venous No growth after 48 hours. Assessment and Plan (1) Dislocation of prosthesis of right hip joint: Status: Acute (2) Pneumonia: Status: Acute (3) COPD with exacerbation: Status: Acute Plan 58-year-old female with history of COPD with exercise hypoxemia with p.r.n. O2, hyperlipidemia, mood disorder, chronic low back pain, heart failure with preserved ejection fraction, hx cocaine use (reports last use 20 years ago- recent UDS negative for cocaine), who is a current 1/2 PPD cigarette smoker admitting to orthopedic surgery due to dislocation of right MAMADOU. Consult placed to hospitalist service for medical management and recent pneumonia. 1.Acute COPD exacerbation with chronic hypoxemic respiratory failure and healthcare associated pneumonia/ sepsis with multiple recent admissions - feeling better this a.m. -chest x-ray with left lower lobe infiltrate - CT chest showed new mild ground-glass opacity right middle lobe likely infectious/ inflammatory 3 to six-month follow-up is recommended, stable pulmonary nodules, atelectasis or scarring with mild elevation of left hemidiaphragm, emphysema and bronchial wall thickening secretions in the airways continue IV vancomycin and IV cefepime started on 07/09 for 1 more day then transitioned to by mouth antibiotics, Continue duonebs and IV steroids, scheduled cough medications, encourage incentive spirometry -continue O2 with goal 88-92% (COPD protocol). RT assessment on dc 06/19 was 2L at rest and 4L with exertion - blood cultures x2 showed no growth/ch mrsa nares pos 2.HFpEF -stable and well compensated -BNP 19 3.Mood disorder -continue effexor, trazodone 4. Recurrent dislocation of RT. hip prosthesis outpatient follow-up with Orthopedic surgery, to be discharged home with PT OT services 5. class 2 obesity recommend low-calorie diet Full code Lovenox Quality Stroke Does the patient have a stroke diagnosis?: No VTE Prior VTE?: No VTE Risk Level:: Surgical - moderate VTE Device Contraindication: N/A - Device Ordered VTE Drug Contraindication: Treatment Not Indicated
--- NOTE | 2024-07-12 17:59 | HE.PHANOTE ---
Re: Vanco Renal is stable and improving. Trough returned at 17, pt is therapeutic. Continue current dose of 1500mg q12h with predicted auc 568, predicted 15.9. Next trough /3 @1700.
[2024-07-12] MEDS: Melatonin 3 MG TABLET 6 MG PO (20:26)
[2024-07-13] VITALS (9 sets, daily range): BP systolic 107–144; BP diastolic 56–81; PULSE 84–106; RESP 16–24; TEMP 36.1–36.8; O2SAT 91–100
[2024-07-13] MEDS: cefEPime HCl/D5W 2 GM/50 ML PIGGYBACK IV ×4 (00:28→23:34)
[2024-07-13] MEDS: 0.9 % Sodium Chloride Flush 3 ML SYRINGE IVFLUSH ×4 (01:06→23:59)
[2024-07-13] MEDS: methylPREDNISolone Sod Succ 125 MG/2 ML VIAL 40 MG IVPUSH (05:17)
[2024-07-13] MEDS: oxyCODONE HCl Immed Release 5 MG TABLET PO ×2 (05:21→19:50)
[2024-07-13 06:46] LABS: Creatinine Clr Calc Pharmacy 113.1; Estimated Glomerular Filt Rate > 60
[2024-07-13] MEDS: vancomycin HCL 1,500 MG in 0.9 % Sodium Chloride 500 ML 333.33 MG IV (07:57)
[2024-07-13] MEDS: Budesonide 180 MCG AER.POW.BA 2 PUFF INHALE ×2 (07:58→19:40)
[2024-07-13] MEDS: Albuterol/Iprat 2.5/0.5MG 3 ML AMPUL.NEB INHALE ×3 (08:00→19:40)
[2024-07-13] MEDS: Venlafaxine HCL 25 MG TABLET 150 MG PO (08:03)
[2024-07-13] MEDS: Gabapentin 600 MG TABLET PO ×3 (08:04→20:55)
[2024-07-13] MEDS: Furosemide 20 MG TABLET PO (08:04)
[2024-07-13] MEDS: Acetaminophen 325 MG TABLET 650 MG PO (08:04)
[2024-07-13] MEDS: guaiFENesin LA 600 MG TAB.ER.12H PO ×2 (08:04→20:59)
--- NOTE | 2024-07-13 11:02 | P.PNIM_ITS ---
Subjective Subjective Date of Service: 07/14/24 Interval History: Feeling significantly better denies cough or sputum production complaining of persistent shortness of breath, ambulating with walker to bathroom. Tolerating diet no nausea no vomiting or diarrhea. Review of Systems All other system reviewed and are negative. Physical Exam 2 Vital Signs: Vital Signs: Last Vital Signs Temp 98.2 F 07/13/24 07:23 Pulse 99 07/13/24 08:02 Resp 18 07/13/24 08:02 BP 138/81 07/13/24 07:23 Pulse Ox 97 07/13/24 07:23 O2 Del Method Nasal Cannula 07/13/24 07:23 O2 Flow Rate 2 07/13/24 03:04 Oxygen Flow Rate 3 07/08/24 22:23 BMI result Body Mass Index 38.2 Const: Other: Gen: in no acute distress HEENT: sclera anicteric, moist mucus membranes Neck: supple Lungs: no respiratory distress, no wheeze ,diminished bs left lungs/coarse bs rt lung Heart: regular rate and rhythm, no murmurs Abd: soft, non-tender, non-distended Ext: no edema Skin: warm/well-perfused Neuro: alert and oriented x3, no focal findings Psych: appropriate affect Objective Data Active Medications Acetaminophen (Acetaminophen 325 Mg Tablet) 650 mg PO Q6H PRN PRN Reason: Pain, Mild 1-3,fever,headache Last Admin: 07/13/24 08:04 Dose: 650 mg Documented By: YULI Albuterol/Ipratropium (Albuterol/Iprat 2.5/0.5mg 3 Ml Ampul.Neb) 3 ml INHALE Q4H PRN PRN Reason: Shortness of Breath/Wheezing Last Admin: 07/13/24 08:00 Dose: 3 ml Documented By: DIYA Amoxicillin/Clavulanate Potassium (Amoxicillin/Potassium Clav 875 Mg Tablet) 875 mg PO Q12H [facility] Budesonide (Budesonide 180 Mcg Aer.Pow.Ba) 2 puff INHALE RBID [facility] Last Admin: 07/13/24 07:58 Dose: 2 puff Documented By: DIYA Docusate Sodium (Docusate Sodium 100 Mg Capsule) 100 mg PO BID PRN PRN Reason: Constipation Enoxaparin Sodium (Enoxaparin Sodium 40 Mg/0.4 Ml Syringe) 40 mg SUBCUT Q24H [facility] Last Admin: 07/12/24 17:08 Dose: 40 mg Documented By: YULI Furosemide (Furosemide 20 Mg Tablet) 20 mg PO DAILY [facility]; Protocol Last Admin: 07/13/24 08:04 Dose: 20 mg Documented By: YULI Gabapentin (Gabapentin 600 Mg Tablet) 600 mg PO TID [facility] Last Admin: 07/13/24 08:04 Dose: 600 mg Documented By: YULI Guaifenesin (Guaifenesin La 600 Mg Tab.Er.12h) 600 mg PO BID [facility] Last Admin: 07/13/24 08:04 Dose: 600 mg Documented By: YULI Cefepime HCl (Maxipime) 2 gm in 50 mls @ 100 mls/hr IV Q8H [facility] Last Infusion: 07/13/24 10:32 Dose: Infused Documented By: YULI Melatonin (Melatonin 3 Mg Tablet) 6 mg PO BEDTIME PRN PRN Reason: Insomnia Last Admin: 07/12/24 20:26 Dose: 6 mg Documented By: RADHA Oxycodone HCl (Oxycodone Hcl Immed Release 5 Mg Tablet) 5 mg PO Q4H PRN PRN Reason: Pain, Moderate(Pain Scale 4-6) Last Admin: 07/13/24 05:21 Dose: 5 mg Documented By: RADHA Pharmacy Consult (Consult Rx Vancomycin Dosing) 1 each MISCELLANE DAILY PRN PRN Reason: Consult order Polyethylene Glycol (Polyethylene Glycol 3350 17 Gm Powd.Pack) 17 gm PO DAILY PRN PRN Reason: Constipation Prednisone (Prednisone 20 Mg Tablet) 40 mg PO DAILY [facility] Sodium Chloride (0.9 % Sodium Chloride Flush 3 Ml Syringe) 3 ml IVFLUSH QSHIFT [facility] Last Admin: 07/13/24 07:58 Dose: 3 ml Documented By: YULI Venlafaxine HCl (Venlafaxine Hcl 25 Mg Tablet) 150 mg PO BID [facility] Last Admin: 07/13/24 08:03 Dose: 150 mg Documented By: YULI Labs 07/11/24 06:53 07/13/24 06:13 Labs: Laboratory Results - last 24 hr 07/12/24 07/13/24 07/13/24 17:15 05:30 06:13 Hold Purple Top SEE NOTE Estim Creat Clear Calc 113.1 Estimated GFR > 60 Random Vancomycin 17.0 Assessment and Plan (1) Pneumonia: Status: Acute (2) COPD with exacerbation: Status: Acute Plan 58-year-old female with history of COPD with exercise hypoxemia with p.r.n. O2, hyperlipidemia, mood disorder, chronic low back pain, heart failure with preserved ejection fraction, hx cocaine use (reports last use 20 years ago- recent UDS negative for cocaine), who is a current 1/2 PPD cigarette smoker admitting to orthopedic surgery due to dislocation of right MAMADOU. Consult placed to hospitalist service for medical management and recent pneumonia. 1.Acute COPD exacerbation with chronic hypoxemic respiratory failure and healthcare associated pneumonia/ sepsis with multiple recent admissions - feeling better this a.m. -chest x-ray with left lower lobe infiltrate corresponds to atelectasis and scarring on CT chest -CT chest showed new mild ground-glass opacity right middle lobe likely infectious/ inflammatory 3 to six-month follow-up is recommended, stable pulmonary nodules, atelectasis or scarring with mild elevation of left hemidiaphragm, emphysema and bronchial wall thickening secretions in the airways on IV vancomycin and IV cefepime started on 07/09 on duonebs and IV steroids, scheduled cough medications, encourage incentive spirometry -continue O2 with goal 88-92% (COPD protocol). RT assessment on dc 06/19 was 2L at rest and 4L with exertion - blood cultures x2 showed no growth/ch mrsa nares pos -will transition to po prednisone 40 mg daily DC IV vancomycin place on Augmentin 875 mg daily and doxycycline 100 mg b.i.d. -DC home if remains clinically stable at a.m. 2.HFpEF -stable and well compensated -BNP 19 3.Mood disorder -continue effexor, trazodone 4. Recurrent dislocation of RT. hip prosthesis, as, will she came into day outpatient follow-up with Orthopedic surgery, to be discharged home with PT OT services 5. class 2 obesity recommend low-calorie diet Full code Lovenox Quality Stroke Does the patient have a stroke diagnosis?: No VTE Prior VTE?: No VTE Risk Level:: Surgical - moderate VTE Device Contraindication: N/A - Device Ordered VTE Drug Contraindication: Treatment Not Indicated
[2024-07-13] MEDS: Amoxicillin/Potassium Clav 875 MG TABLET PO ×2 (12:19→23:34)
[2024-07-13] MEDS: Enoxaparin Sodium 40 MG/0.4 ML SYRINGE SUBCUT (18:06)
[2024-07-14 03:02] VITALS: BP 118/74; PULSE 75; RESP 18; TEMP 36.3; O2SAT 96
[2024-07-14 07:24] VITALS: BP 129/77; PULSE 91; RESP 18; TEMP 36.1; O2SAT 96
[2024-07-14] MEDS: cefEPime HCl/D5W 2 GM/50 ML PIGGYBACK IV (08:07)
[2024-07-14] MEDS: Gabapentin 600 MG TABLET PO (08:07)
[2024-07-14] MEDS: predniSONE 20 MG TABLET 40 MG PO (08:07)
[2024-07-14] MEDS: Furosemide 20 MG TABLET PO (08:08)
[2024-07-14] MEDS: Venlafaxine HCL 25 MG TABLET 150 MG PO (08:08)
[2024-07-14] MEDS: 0.9 % Sodium Chloride Flush 3 ML SYRINGE IVFLUSH (08:14)
[2024-07-14] MEDS: guaiFENesin LA 600 MG TAB.ER.12H PO (08:17)
[2024-07-14] MEDS: Budesonide 180 MCG AER.POW.BA 2 PUFF INHALE (08:25)
[2024-07-14] MEDS: Albuterol/Iprat 2.5/0.5MG 3 ML AMPUL.NEB INHALE (08:26)
[2024-07-14 08:29] VITALS: PULSE 91; RESP 18; O2SAT 96
--- NOTE | 2024-07-14 09:28 | P.DS_ITS ---
DS: Providers Provider Date of Service: 07/14/24 Date of admission: 07/08/24 22:00 Date of discharge: 07/14/24 Primary care physician: JERMAINE Sherman- Consults: 07/09/24 16:03 Consult to Orthopedics Routine Consulting Provider: [facility] Reason for consultation: R hip dislocation s/p MAMADOU DS: Diagnosis Discharge Diagnosis (1) Pneumonia: Status: Acute (2) COPD with exacerbation: Status: Acute DS: Summary Hospital Course Hospital Course: medical management, recent pneumonia 58-year-old female with history of COPD with exercise hypoxemia with p.r.n. O2, hyperlipidemia, mood disorder, chronic low back pain, heart failure with preserved ejection fraction, hx cocaine use (reports last use 20 years ago- recent UDS negative for cocaine), who is a current 1/2 PPD cigarette smoker admitting to orthopedic surgery due to dislocation of right MAMADOU. She was recently admitted to hospital service from 06/18-06/19 due to acute hypoxemic respiratory failure due to COPD exacerbation and mild pneumonia. She was discharged on 3 days of prednisone as well as Ceftin and azithromycin which she reports she completed. home O2 evaluation was performed during admission recommending 2 L at rest and 4 L with ambulation. she was discharged to and was discharged home. States she weaned herself from O2 but then about 2 weeks ago was experiencing increased SOB, primarily with exertion, and wheezing with increased albuterol usage and requiring 2L O2. She presented to pcp who prescribed presnisone taper which she is currently taking. She reports compliance with diuretics but states she has not been able to obtain jardiance due to insurance issues. She does not weight herself at home but does not feel she has gained weight. On review of chart, appears she has had a 3.5 kg weight gain since discharge. She has chronic cough which has not changed in severity but has had increased sputum production. Also reporting some nausea but no vomiting. Tolerating diet. Reports 2/10 pain in the R hip. Has not been OOB yet. She denies fevers, chills, st, congestion, abd pain, n/v/d, h/a, palpitations, orthopnea, edema, chest pain. Hospital course: 58-year-old female with history of COPD with exercise hypoxemia with p.r.n. O2, hyperlipidemia, mood disorder, chronic low back pain, heart failure with preserved ejection fraction, hx cocaine use (reports last use 20 years ago- recent UDS negative for cocaine), who is a current 1/2 PPD cigarette smoker admitting to orthopedic surgery due to dislocation of right MAMADOU. Consult placed to hospitalist service for medical management and recent pneumonia. 1.Acute COPD exacerbation with chronic hypoxemic respiratory failure and healthcare associated pneumonia/ sepsis with multiple recent admissions, chest x-ray showed left lower lobe infiltrate corresponds to atelectasis and scarring on CT chest,/ CT chest showed new mild ground-glass opacity right middle lobe likely infectious/ inflammatory 3 to six-month follow-up is recommended, stable pulmonary nodules, atelectasis or scarring with mild elevation of left hemidiaphragm, emphysema and bronchial wall thickening secretions in the airways, patient treated with IV vancomycin and IV cefepime due to multiple recent admission concerning for healthcare associated pneumonia, patient met sepsis criteria due to tachycardia, tachypnea and leukocytosis, also required IV steroids and scheduled and as needed updraft treatment, patient responded well to above treatment currently clinically stable therefore being discharged home on Augmentin and doxycycline for 3 more days recommend to continue incentive spirometry out of bed to chair as tolerated, recommend to finish course of prednisone as recently prescribed by PCP take cough medication and continue home oxygen that was recently recommended on June 19 with 2 L at rest and 4 L with exertion, blood cultures x2 showed no growth and has chronic MRSA nares positive. 2.HFpEF -stable and well compensated, continue Lasix,BNP 19 3.Mood disorder -continue effexor, trazodone 4. Recurrent dislocation of RT. hip prosthesis, admitted to the hospital status post dislocation of right total hip arthroplasty reduced in the emergency department, ortho recommend to continue use of abduction pillow when lying down continue with posterior precautions, patient may weightbear as tolerated, avoid crossing legs, hip flexion to greater than 90 degrees, internal rotation past neutral. Time Attestation Discharge Coordination Time (in mins): 40 Quality: Safe Use of Opioids Does Pt have an Active Cancer Diagnosis on the Problem List?: No Quality: Stroke Does the patient have a stroke diagnosis?: No Physical Exam Vital Signs: Vital Signs: Last Vital Signs Temp 96.9 F 07/14/24 07:24 Pulse 91 07/14/24 08:29 Resp 18 07/14/24 08:29 BP 129/77 07/14/24 07:24 Pulse Ox 96 07/14/24 07:24 O2 Del Method Nasal Cannula 07/14/24 07:24 O2 Flow Rate 2 07/14/24 07:24 Oxygen Flow Rate 3 07/08/24 22:23 BMI result Body Mass Index 38.2 Const: Other: Gen: in no acute distress HEENT: sclera anicteric, moist mucus membranes Neck: supple Lungs: no respiratory distress, no wheeze ,diminished bs left lungs/coarse bs rt lung/prolonged expiratory phase Heart: regular rate and rhythm, no murmurs Abd: soft, non-tender, non-distended Ext: no edema Skin: warm/well-perfused Neuro: alert and oriented x3, no focal findings Psych: appropriate affect DS: Data Data Completed and Pending Labs on day of discharge: Preliminary micro results at discharge 07/09/24 15:48 Blood Culture - Preliminary Blood - Venous No growth after 48 hours. 07/09/24 15:48 Blood Culture - Preliminary Blood - Venous No growth after 48 hours. Discharge Plan Discharge Anticipated Discharge Date/Time: 07/14/24 09:17 Patient Disposition: Home Health Service Discharge Diagnosis: Acute COPD exacerbation/healthcare associated pneumonia Chronic hypoxic respiratory failure Referrals: Ezra Zuñiga, SALES AND MARKETING REPRESENTATIVE- [Primary Care Provider] - 1 Week Discharge Medications: New amoxicillin-pot clavulanate 875-125 mg Tablet 1 tab PO Q12H Qty: 6 0RF doxycycline monohydrate 100 mg capsule 100 mg PO BID Qty: 6 0RF guaifenesin [Mucinex] 600 mg Tablet Extended Release 12hr 600 mg PO BID Qty: 14 0RF Continued (DME) walker [facility] See Rx Instructions .MEDSUPPLY Qty: 1 0RF Rx Instructions: Folding Front wheeled walker duration 99 days ipratropium-albuterol 0.5 mg-3 mg(2.5 mg base)/3 mL solution for nebulization 3 ml inhalation RQ4H WHILE AWAKE PRN (Reason: shortness of breath or wheezing) Qty: 90 0RF venlafaxine 150 mg capsule,extended release 24hr 150 mg PO DAILY baclofen 10 mg tablet 10 mg PO BID PRN (Reason: muscle spasms) docusate sodium 100 mg capsule 100 mg PO BID PRN (Reason: Constipation) fluticasone propionate 50 mcg/actuation spray,suspension 1 spray intranasal Q12H PRN (Reason: Allergy Symptoms) acetaminophen 325 mg Tablet 650 mg PO Q6H PRN (Reason: Pain, Mild 1-3,Fever,Headache) 30 Days Qty: 240 0RF Breztri Aerosphere 160-9-4.8 mcg/actuation HFA aerosol inhaler 2 inh inhalation BID Qty: 32.1 1RF clonidine HCl 0.1 mg tablet 0.1 mg PO TID 90 Days Qty: 270 1RF Jardiance 10 mg tablet 10 mg PO DAILY 90 Days Qty: 90 0RF furosemide 20 mg tablet 20 mg PO DAILY Qty: 30 2RF Protocol: Hold for SBP< HOLD for SBP < : 90 gabapentin 600 mg tablet 600 mg PO TID 30 Days Qty: 90 0RF Rx Instructions: TAKE WITH 100 MG; TDD 700 MG TID trazodone 50 mg tablet 50 mg PO BEDTIME PRN (Reason: sleep) Qty: 30 3RF nicotine (polacrilex) 4 mg gum 4 mg buccal Q2H PRN (Reason: nicotine cravings) Qty: 100 0RF prednisone 10 mg tablet 10 mg PO .COMPLEX 21 Days Qty: 65 0RF Patient Comments: 07/09/24: Patient started 3 tabs yesterday 07/08/24 Rx Instructions: 10 mg orally 6 tabs for 3 days, 5tabs for 3 days, 4t for 3d, 3t for 3d, 2t for 3d, 1t for 3d, .5 tabs for 3 days; Discharge Orders: Discharge Order (Routine); Ordered 07/14/24 Ordered By: Amber Hill Diet: Advance to usual diet Activity on Discharge: As tolerated Stand Alone Forms: Patient Portal Discharge page Print Language: Spanish Care Plan Goals: Take Augmentin and doxycycline 1 tablet twice daily for 3 more days Finished course of prednisone recently ordered by PCP Take cough medication 1 tablet twice daily for 7 days Continue incentive spirometry Ambulate as tolerated PT OT as per Orthopedic surgery Continue oxygen as previously recommended 2 L at rest and 4 L with exertion. Health Concerns: Take all home medications as before Plan of Treatment: Outpatient follow-up with primary care physician call for appointment Outpatient follow-up with orthopedic surgeon Dr. Sweeney Assessment: As above Patient Instructions: Pneumonia (DC)
--- NOTE | 2024-07-14 09:39 | MHC.CM.PN ---
PT DCD HOME WITH [facility]
[2024-07-14] MEDS: Amoxicillin/Potassium Clav 875 MG TABLET PO (10:46)
[2024-07-14 12:00] VITALS: BP 133/81; PULSE 102; RESP 18; TEMP 36.4; O2SAT 93
[2024-07-14 12:29] VITALS: BP 133/81; PULSE 102; RESP 18; TEMP 36.4; O2SAT 93
== END 2024-07-14 12:42 | disposition home health service (06) | DRG 349 ==
LOC: HO.ED 22:49 → HO.EDOVER 22:55 → HO.S3 23:35
PROVIDERS: Hospitalist; Physician Assistant; Emergency Provider Emergency Medicine; PCP Nurse Practitioner Family; Visit Provider Hospitalist
DX: T84.020A Dislocation of internal right hip prosthesis, initial encounter (principal); J96.21 Acute and chronic respiratory failure with hypoxia; A41.9 Sepsis, unspecified organism; J18.9 Pneumonia, unspecified organism; Z99.81 Dependence on supplemental oxygen; I50.32 Chronic diastolic (congestive) heart failure; J44.0 Chronic obstructive pulmonary disease with (acute) lower respiratory infection; E66.812 Obesity, class 2; Z71.3 Dietary counseling and surveillance; J98.11 Atelectasis; Z68.38 Body mass index [BMI] 38.0-38.9, adult; J44.1 Chronic obstructive pulmonary disease with (acute) exacerbation; F17.210 Nicotine dependence, cigarettes, uncomplicated; M54.59 Other low back pain; G89.29 Other chronic pain; Z71.6 Tobacco abuse counseling; Z22.322 Carrier or suspected carrier of Methicillin resistant Staphylococcus aureus; Z20.822 Contact with and (suspected) exposure to COVID-19; Z79.899 Other long term (current) drug therapy
CPT/HCPCS: 0241U; 36415; 71045; 71250; 73502; 80048; 80053; 80202; 80307; 82565; 83605; 83880; 85025; 86850; 86900; 86901; 87040; 87640; 87641; 94640; 99285; J0692; J1171; J1650; J2060; J2704; J2919; J3370; J3371; J7120

== ENCOUNTER → 2024-07-08 20:15 | Outpatient (BNV) | payer OTHER, SELFPAY | PROVIDERS: Emergency Provider Emergency Medicine; Visit Provider Radiology Diagnostic Radiology | DX: S73.014A Posterior dislocation of right hip, initial encounter (principal); J18.9 Pneumonia, unspecified organism | CPT/HCPCS: 71045; 73502 ==

== ENCOUNTER 2024-07-08 22:00 | Outpatient (BNV) | payer OTHER, SELFPAY | END 2024-07-09 09:55 | PROVIDERS: Emergency Provider Emergency Medicine; Visit Provider Radiology Vascular & Interventional Radiology | DX: J18.9 Pneumonia, unspecified organism (principal) | CPT/HCPCS: 71045 ==

== ENCOUNTER 2024-07-08 22:00 | Outpatient (BNV) | payer OTHER, SELFPAY | END 2024-07-10 16:42 | PROVIDERS: Emergency Provider Emergency Medicine; PCP Nurse Practitioner Family; Visit Provider Radiology Diagnostic Radiology | DX: J18.9 Pneumonia, unspecified organism (principal) | CPT/HCPCS: 71250 ==

== ENCOUNTER → 2024-07-08 22:00 | Outpatient (BNV) | payer OTHER, SELFPAY | PROVIDERS: Emergency Provider Emergency Medicine | DX: T84.020A Dislocation of internal right hip prosthesis, initial encounter (principal) | CPT/HCPCS: 99024; G0180 ==

== ENCOUNTER → 2024-07-08 22:00 | Outpatient (BNV) | payer OTHER, SELFPAY | PROVIDERS: Emergency Provider Emergency Medicine; Visit Provider Physician Assistant | DX: T84.020A Dislocation of internal right hip prosthesis, initial encounter (principal) | CPT/HCPCS: 99222 ==

== ENCOUNTER 2024-07-15 12:19 | Emergency (ER) | payer OTHER, SELFPAY ==
--- NOTE | ~2024-07-15 | XR_ITS ---
CLINICAL HISTORY: probable hip dislocation 3 view, pelvis and right hip Comparison: CR - XR HIP RT MIN 2V - 07/08/24 21:55 EDT Findings: Status post right hip replacement. Anterior dislocation of the femoral head prosthesis. No fracture. No significant arthritic change. There is edema of the soft tissues adjacent to the right hip. IMPRESSION: Anterior dislocation of the femoral head prosthesis. This document has been electronically signed by: Hannah Bowles MD on 07/15/2024 13:34:26
--- NOTE | ~2024-07-15 | XR_ITS ---
CLINICAL HISTORY: post reduction attempt 1 view right hip Comparison: CR - XR HIP RT W PEL1V - 07/15/24 12:37 EDT Findings: There is a persistent right hip dislocation . The femoral head prosthesis is dislocated anterior and superior to the acetabular prosthesis. IMPRESSION: Persistent right hip dislocation. This document has been electronically signed by: Hannah Bowles MD on 07/15/2024 14:53:41
--- NOTE | ~2024-07-15 | XR_ITS ---
CLINICAL HISTORY: post reduction x2 1 view, pelvis and right hip Comparison: CR - XR HIP RT 1V - 07/15/24 13:43 EDT Findings: Status post right hip replacement. Interval reduction of the previously seen dislocation. Appropriate alignment. No significant arthritic change. The soft tissues are unremarkable. IMPRESSION: Interval resolution of the right hip dislocation. Appropriate alignment. This document has been electronically signed by: Hannah Bowles MD on 07/15/2024 14:52:34
[2024-07-15 12:22] VITALS: BP 112/76; PULSE 101; O2SAT 95
--- NOTE | 2024-07-15 12:22 | ED_ITS ---
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 Patient states that she was recently hospitalized here for a pneumonia and right hip dislocation that was put back into place. Patient states at that time they talked about getting surgery but she requested to wait until she healed from her pneumonia. Patient states that she got out of the truck just fine but when she went to get back into it, her right hip dislocated again. Patient states that she did not hit her head or have any loss of consciousness from the incident. Patient states that she last ate at 10am, oatmeal. Patient denies any dizziness, lightheadedness, abdominal pain, nausea, vomiting, fever, chills, blurry vision, double vision, loss of vision, chest pain, difficulty breathing, shortness of breath, back pain, night sweats, pain with urination, increased urinary frequency, increased urinary urgency, blood in her urine or stool, syncope or a near syncopal episode, bowel incontinence, bladder incontinence, or any other complaints at this time. Onset (ago): minute(s) Location: right and lower extremity Relieving factors: none Exacerbating factors: movement Associated symptoms: denies other symptoms Treatments prior to arrival: none Related Data Home Medications ?Medication ?Instructions ?Recorded ?Confirmed baclofen 10 mg tablet 10 mg PO BID PRN muscle spasms 07/09/24 07/09/24 docusate sodium 100 mg capsule 100 mg PO BID PRN Constipation 07/09/24 07/09/24 fluticasone propionate 50 1 spray intranasal Q12H PRN 07/09/24 07/09/24 mcg/actuation nasal Allergy Symptoms spray,suspension venlafaxine 150 mg 150 mg PO DAILY 07/09/24 07/09/24 capsule,extended release 24 hr Previous Rx's ?Medication ?Instructions ?Recorded walker #1 ea 03/30/24 acetaminophen 325 mg tablet 650 mg (2 x 325 mg) PO Q6H PRN 05/05/24 Pain, Mild 1-3,Fever,Headache 30 days #240 tabs Bremaurytri Aerosphere 160 2 inh inhalation BID #32.1 grams 06/26/24 mcg-9mcg-4.8mcg/actuation HFA aerosol inhaler (kvyawtubpt-ckmwbnxo-khhyeiiwtm) clonidine HCl 0.1 mg tablet 0.1 mg PO TID 90 days #270 tabs 06/26/24 empagliflozin 10 mg tablet 10 mg PO DAILY 90 days #90 tabs 06/26/24 (Jardiance) furosemide 20 mg tablet 20 mg PO DAILY #30 tabs 06/26/24 gabapentin 600 mg tablet 600 mg PO TID 30 days #90 tabs 06/26/24 nicotine (polacrilex) 4 mg gum 4 mg buccal Q2H PRN nicotine 06/26/24 cravings #100 ea prednisone 10 mg tablet 10 mg PO .COMPLEX 21 days #65 tabs 06/26/24 trazodone 50 mg tablet 50 mg PO BEDTIME PRN sleep #30 tabs 06/26/24 ipratropium 0.5 mg-albuterol 3 mg 3 ml inhalation RQ4H WHILE AWAKE 06/30/24 (2.5 mg base)/3 mL nebulization PRN shortness of breath or soln wheezing #90 mL amoxicillin 875 mg-potassium 1 tab PO Q12H #6 tabs 07/14/24 clavulanate 125 mg tablet doxycycline monohydrate 100 mg 100 mg PO BID #6 caps 07/14/24 capsule guaifenesin 600 mg tablet, 600 mg PO BID #14 tabs 07/14/24 extended release 12 hr (Mucinex) Allergies Allergy/AdvReac Type Severity Reaction Status Date / Time lansoprazole [Prevacid] Allergy Severe anaphylaxis Verified 07/15/24 12:33 cyclobenzaprine Allergy Intermediate Rash Verified 07/15/24 12:33 [From Flexeril] Review of Systems 2 Constitutional: Constitutional: Reports no additional constitutional complaints, Denies chills, Denies fever(s) and Denies night sweats Eyes: Eyes: Reports no additional eye complaints, Denies blurry vision, Denies change in vision, Denies diplopia, Denies eye discharge, Denies loss of vision and Denies eye pain ENT: Denies dizziness Cardiovascular: Cardiovascular: Reports no additional cardiovascular complaints, Denies chest pain, Denies lightheadedness, Denies Loss of Consciousness and Denies dyspnea Respiratory: Respiratory: Reports no additional respiratory complaints and Denies dyspnea Gastrointestinal: Gastrointestinal: Reports no additional gastrointestinal complaints, Denies abdominal pain, Denies melena, Denies hematochezia, Denies change in bowel habits and Denies change in stool character Genitourinary: Genitourinary: Denies hematuria, Denies urinary frequency, Denies dysuria, Denies urinary incontinence, Denies urinary hesitancy and Denies urinary urgency Musculoskeletal: Musculoskeletal: Reports no additional musculoskeletal complaints, Denies numbness and Denies tingling Comments: Right hip pain Right hip dislocation Neurologic: Denies dizziness, Denies loss of vision, Denies numbness and Denies tingling Psychiatric: Psychiatric: Reports no additional psychiatric complaints Endocrine: Endocrine: Reports no additional endocrine complaints Hematologic/Lymphatic: Hematologic/Lymphatic: Reports no additional hematologic/lymphatic complaints Allergic/Immunologic: Allergic/Immunologic: Reports no additional allergic/immunologic complaints [facility] Past Medical History Attestation statement: The following information was validated with the patient. Source: old records reviewed and nursing notes reviewed Medical History Pulmonary edema Resides in senior living facility Heart failure with preserved ejection fraction Substance abuse Acute exacerbation of chronic obstructive pulmonary disease Lumbar spondylosis Trochanteric bursitis of right hip Obesity Nicotine dependence, cigarettes, uncomplicated History of sepsis Urinary frequency COPD (chronic obstructive pulmonary disease) Exercise hypoxemia Smoker Bilateral hip pain Dyslipidemia Lower back pain Anxiety associated with depression Somatic dysfunction of left sacroiliac joint Surgical History History of section Family History Family History Father Substance use disorder Mother Substance use disorder Mental health disorder Maternal Grandmother Substance use disorder Mental health disorder Social History Social History Household Members: Spouse Housing: House Housing Other:: currently @ [facility] for rehab Are you a primary rn progressive care unit to a significant other at home: No Do you presently have visiting nurse or other home services: No Unable to assess alcohol history related to: Unable to respond Alcohol intake: former Patient Tobacco Use Status: Current everyday Tobacco user Tobacco use type: Cigarette Cigarette Packs Per Day: 0.5 Cigarettes Per Day: 2 Years Smoked: 30 Smoked in Last 30 Days: Yes e-Cigarette/Vaping Use: Never Used Second Hand Smoke Exposure: No Use of substances other than those prescribed or required for medical reasons: No Substance Use Type: Crack/Cocaine Advance Directives: No Advance Directives Information Provided: Yes service: No Current occupational status: employed Current occupation: [employer] Cognitive needs: No Hearing needs: No Vision needs: No Physical Exam ED Vital Signs: Vital Signs - 24 hr 07/15/24 12:32 07/15/24 15:34 Temperature 98.3 F 98.3 F Pulse Rate 109 H 108 H Respiratory Rate 20 20 Blood Pressure 129/85 118/89 Pulse Oximetry 98 94 Oxygen Delivery Method Room Air Room Air BMI result Body Mass Index 40.8 Const General: cooperative, no acute distress, alert and awake Nutritional Appearance: well nourished Orientation/consciousness: patient oriented x3 Limitations: no limitations HENMT Head: Yes normal to inspection and Yes atraumatic Ears: hearing grossly normal bilaterally and external ears normal General nose exam: Normal external nose present, no nasal discharge noted and no epistaxis Face and sinus: Yes normal facial exam, No abrasion and No laceration Mouth: Normal oral and palatal mucosa present, no drooling and no muffled voice Eyes General: appearance normal, both eyes and all related structures Periorbital: periorbital findings normal Eyelids: Yes eyelids normal Conjunctivae: conjunctivae normal Pupils: Equal, round and reactive pupils present EOM: EOMs intact bilaterally Neck Neck: Yes normal visual inspection, Yes full ROM and Yes no lymphadenopathy Chest Chest palpation & inspection: normal inspection of the chest Resp Effort & Inspection: normal respiratory effort and able to speak in complete sentences GI Inspection: Yes normal to inspection Neuro General: patient oriented x3, moves all extremities and CN's II-XI intact bilaterally Cranial nerves: Yes Equal, round and reactive pupils present Cognition (Neuro): normal cognition Extrem Other: limited ROM of the right hip right lower extremity shortened General: Yes capillary refill normal Psych Appearance: grossly normal Mental Status: mental status grossly normal Affect: normal affect Attitude: cooperative Thought process: Normal thought process present Thought content: Normal thought content present Insight: Good insight present (Psych) Medications Administered Discontinued Medications Generic Name Dose Route Start Last Admin Trade Name Amairani PRN Reason Stop Dose Admin Hydromorphone HCl 1 mg 07/15/24 13:06 07/15/24 13:24 Hydromorphone Hcl 1 Mg/Ml Syringe IVPUSH 07/15/24 13:07 1 mg ONCE ONE Administration Protocol Procedures Orthopedic Joint Reduction Joint #1: Time Out Performed: Yes Side: right Joint Reduction Location: hip Technique used: direct manipulation Post-reduction neuro exam: intact Post-reduction vascular: intact Post Reduction X-Ray Obtained: Yes Post Reduction X-Ray Results: reduced Splint Applied: No Patient Tolerated Procedure: well Medical Decision Making Medical Decision Making MDM Narrative: Patient is a 58 year old assigned female at with a history of COPD, recent hospitalization for PNA, and 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 Patient's physical exam showed a dislocated right hip. Patient's blood work showed an elevated WBC count - consistent with a stress reaction. Patient's initial right hip x-ray showed an anterior hip prosthesis dislocation. I spoke to the orthopedic team who recommended reduction, abduction pillow, and discharge home with precautions and outpatient follow up. I explained my physical exam findings as well as all test results to the patient. I answered all questions asked by the patient. Dr. Ware, my attending physician, and I successfully reduced the right hip dislocation, without incident. I stressed the importance of the patient taking her medication as directed (either prescribed or as the over the counter packaging recommends). I stressed the importance of the patient following up with her primary care provider an an orthopedic provider. I stressed the importance of the patient returning to the emergency department immediately if her symptoms were to worsen or if she were to develop any dizziness, shortness of breath, difficulty breathing, chest pain, blurry vision, loss of vision, nausea, vomiting, abdominal pain, fever, chills, back pain, or any other complaints. Patient verbalized agreement and understanding with this treatment plan and discharge. Differential Diagnosis Differential Diagnoses: The differential diagnosis associated with the presentation includes Right hip dislocation Right hip pain Admission/Observation Consideration of admission/observation: Escalation of care including admission/observation considered Patient would have been admitted to the hospital had her work up had any findings where hospital admission was appropriate and her clinical presentation warranted hospital admission. Consult Healthcare Provider Management of the patient was discussed with: Soaking Room Operator (spoke to the orthopedic team as noted in the MDM Rationale portion of this note. ) Lab Data [facility] Lab Attestation statement: I reviewed the patient's lab results. My interpretation of these results are in the MDM Rationale portion of this note. 07/15/24 13:26 07/15/24 13:26 Labs: Lab Results 07/15/24 07/15/24 Range/Units 13:26 Unknown WBC 17.2 H (4.8-10.8) X10*3/uL RBC 5.39 (4.20-5.50) X10*6/uL Hgb 14.4 (12.0-16.0) g/dl Hct 45.0 (37.0-47.0) % MCV 83.5 (80.0-98.0) fL MCH 26.7 L (27.0-33.0) pg MCHC 32.0 (31.0-35.0) g/dl RDW 17.5 H (11.0-16.0) % Plt Count 336 (160-400) X10*3/uL MPV 9.1 L (9.4-12.3) fL Immature Gran % (Auto) 1.0 H (0.0-0.4) % Neut % (Auto) 85.1 H (45-73) % Lymph % (Auto) 7.2 L (20-40) % [place] % (Auto) 6.5 (2-11) % Eos % (Auto) 0.1 (0-4) % Baso % (Auto) 0.1 (0-2) % Lymph # (Auto) 1.2 (1.2-4.9) X10*3/uL [place] # (Auto) 1.1 (0.1-1.2) X10*3/uL Eos # (Auto) 0.0 (0.0-0.4) X10*3/uL Baso # (Auto) 0.0 (0.0-0.2) X10*3/uL Abs Immat Gran (auto) 0.18 H (0.00-0.03) X10*3/uL Absolute Neuts (auto) 14.6 H (2.0-8.3) x10*3/uL Absolute Nucleated RBC 0.000 (0.0-0.012) X10*3/uL Nucleated RBC % (auto) 0.0 (0.0-0.2) /100WBC Sodium 142 (135-145) mmol/L Potassium 4.6 (3.3-5.1) mmol/L Chloride 102 (96-108) mmol/L Carbon Dioxide 29 (22-29) mmol/L Anion Gap 16 (12-20) BUN 28 H (9-16) mg/dL Creatinine 0.72 (0.5-1.4) mg/dL Estim Creat Clear Calc 87.6 Estimated GFR > 60 Random Glucose 123 H (60-115) mg/dL Calcium 9.2 (8.4-10.2) mg/dL Total Bilirubin 0.3 (0.0-1.0) mg/dL AST 26 (5-31) U/L ALT 23 (0-31) U/L Alkaline Phosphatase 97 (39-117) U/L Total Protein 6.8 (6.5-8.0) g/dL Albumin 4.1 (3.5-5.0) g/dL Blood Type Cancelled Antibody Screen Cancelled Independent Interpretation I performed an independent interpretation of an: Plain X-Ray Interpretation: My interpretation is in agreement with the radiologist's impression of these imaging studies. L CLINICAL HISTORY: probable hip dislocation 3 view, pelvis and right hip Comparison: CR - XR HIP RT MIN 2V - 07/08/24 21:55 EDT Findings: Status post right hip replacement. Anterior dislocation of the femoral head prosthesis. No fracture. No significant arthritic change. There is edema of the soft tissues adjacent to the right hip. IMPRESSION: Anterior dislocation of the femoral head prosthesis. This document has been electronically signed by: Hannah Bowles MD on 07/15/2024 13:34:26 Dictated By: Hannah Bowles MD Signed By: Electronically signed by Hannah Bowles MD 07/15/24 1335 CLINICAL HISTORY: post reduction x2 1 view, pelvis and right hip Comparison: CR - XR HIP RT 1V - 07/15/24 13:43 EDT Findings: Status post right hip replacement. Interval reduction of the previously seen dislocation. Appropriate alignment. No significant arthritic change. The soft tissues are unremarkable. IMPRESSION: Interval resolution of the right hip dislocation. Appropriate alignment. This document has been electronically signed by: Hannah Bowles MD on 07/15/2024 14:52:33 Dictated By: Hannah Bowles MD Signed By: Electronically signed by Hannah Bowles MD 07/15/24 1453 CLINICAL HISTORY: post reduction attempt 1 view right hip Comparison: CR - XR HIP RT W PEL1V - 07/15/24 12:37 EDT Findings: There is a persistent right hip dislocation . The femoral head prosthesis is dislocated anterior and superior to the acetabular prosthesis. IMPRESSION: Persistent right hip dislocation. This document has been electronically signed by: Hannah Bowles MD on 07/15/2024 14:53:41 Dictated By: Hannah Bowles MD Signed By: Electronically signed by Hannah Bowles MD 07/15/24 1451 Radiology Impression Discussion of test interpretation with radiology: I have reviewed the radiologist's reading. Independent Historian Clinical information obtained from an independent historian. History obtained from or confirmed by: EMS (EMS provided additional history and confirmed the history provided by the patient.) Critical Care Time Critical Care Time Critical Care Time: Yes Total Critical Care Time: 48 Attestation: I spent 48 minutes of Critical Care Time with this patient. This does not include time spent on separately reported billable procedures. Discharge Plan Discharge Clinical Impression: Dislocation, hip Patient Disposition: Home, Self-Care Instructions: Hip Dislocation (ED), Hip Abduction Pillow (DC) Additional Instructions: Don't bend the right lower extremity 90 degrees. Do not cross your legs. Follow up with your primary care provider and the orthopedic team. Return to the emergency department immediately if your symptoms worsen or if you develop any numbness, tingling, dizziness, shortness of breath, difficulty breathing, chest pain, blurry vision, loss of vision, nausea, vomiting, abdominal pain, fever, chills, back pain, or any other complaints. Please see the information below about our Patient Portal. If you are not yet enrolled in the [facility] Patient Portal, you will receive an enrollment email invitation following your visit to any [facility] setting. You may also self-enroll in the Patient Portal by visiting our website: [email or web address] The following information is required to access the Patient Portal: - Your [facility] Medical Record Number - Your personal home email address (must match what is in your electronic medical record, Registration staff can assist with this) - Name - Date of Capabilities of the Patient Portal: - Message some providers - View upcoming appointments - Access your health summary, medical history, and visit history - View current conditions and allergies - View procedure and lab results - View your medications, including guidelines, side effects, and precautions - Complete pre-appointment questionnaires requested by your provider - Ready summary reports of your office visits and procedures To access the Patient Portal Mobile [employer], follow these directions: - Search [employer] in the [employer] Store or [employer] Store - Download the [employer]is - Search for [facility] - Enter your login/password Prescriptions: No Action (DME) erick [facility] See Rx Instructions .MEDSUPPLY Qty: 1 0RF Rx Instructions: Folding Front wheeled erick duration 99 days ipratropium-albuterol 0.5 mg-3 mg(2.5 mg base)/3 mL solution for nebulization 3 ml inhalation RQ4H WHILE AWAKE PRN (Reason: shortness of breath or wheezing) Qty: 90 0RF venlafaxine 150 mg capsule,extended release 24hr 150 mg PO DAILY baclofen 10 mg tablet 10 mg PO BID PRN (Reason: muscle spasms) docusate sodium 100 mg capsule 100 mg PO BID PRN (Reason: Constipation) fluticasone propionate 50 mcg/actuation spray,suspension 1 spray intranasal Q12H PRN (Reason: Allergy Symptoms) amoxicillin-pot clavulanate 875-125 mg Tablet 1 tab PO Q12H Qty: 6 0RF doxycycline monohydrate 100 mg capsule 100 mg PO BID Qty: 6 0RF guaifenesin [Mucinex] 600 mg Tablet Extended Release 12hr 600 mg PO BID Qty: 14 0RF acetaminophen 325 mg Tablet 650 mg PO Q6H PRN (Reason: Pain, Mild 1-3,Fever,Headache) 30 Days Qty: 240 0RF Breztri Aerosphere 160-9-4.8 mcg/actuation HFA aerosol inhaler 2 inh inhalation BID Qty: 32.1 1RF clonidine HCl 0.1 mg tablet 0.1 mg PO TID 90 Days Qty: 270 1RF Jardiance 10 mg tablet 10 mg PO DAILY 90 Days Qty: 90 0RF furosemide 20 mg tablet 20 mg PO DAILY Qty: 30 2RF Protocol: Hold for SBP< HOLD for SBP < : 90 gabapentin 600 mg tablet 600 mg PO TID 30 Days Qty: 90 0RF Rx Instructions: TAKE WITH 100 MG; TDD 700 MG TID trazodone 50 mg tablet 50 mg PO BEDTIME PRN (Reason: sleep) Qty: 30 3RF nicotine (polacrilex) 4 mg gum 4 mg buccal Q2H PRN (Reason: nicotine cravings) Qty: 100 0RF prednisone 10 mg tablet 10 mg PO .COMPLEX 21 Days Qty: 65 0RF Patient Comments: 07/09/24: Patient started 3 tabs yesterday 07/08/24 Rx Instructions: 10 mg orally 6 tabs for 3 days, 5tabs for 3 days, 4t for 3d, 3t for 3d, 2t for 3d, 1t for 3d, .5 tabs for 3 days; Referrals: [facility] Orthopedic Surgeons [Provider Group] (Call to follow up with the orthopedic team. ) Ezra Zuñiga, PLUG AND MOLD FINISHER-BC [Primary Care Provider] - Interventions: ED Discharge Assessment Last Done: 07/15/24 15:34 Discharge Date/Time: 07/15/24 15:36 Print Language: Surinamese
[2024-07-15 12:32] VITALS: BP 129/85; PULSE 109; RESP 20; TEMP 36.8; O2SAT 98; BMI 40.8
[2024-07-15] MEDS: HYDROmorphone HCl 1 MG/ML SYRINGE IVPUSH (13:24)
[2024-07-15 13:30] LABS: MANUAL DIFF FLAG NO
[2024-07-15 13:32] LABS: Basophils Percent Auto 0.1 % (0-2); Eosinophils Percent Auto 0.1 % (0-4); Hemoglobin 14.4 g/dl (12.0-16.0); Imm Gran Abs Auto 0.18 X10*3/uL (0.00-0.03); Lymphocytes Absolute Auto 1.2 X10*3/uL (1.2-4.9); Lymphocytes Percent Auto 7.2 % (20-40); Mean Corpuscular Hemoglobin 26.7 pg (27.0-33.0); Mean Corpuscular Volume 83.5 fL (80.0-98.0); Mean Platelet Volume 9.1 fL (9.4-12.3); Monocytes Absolute Auto 1.1 X10*3/uL (0.1-1.2); Monocytes Percent Auto 6.5 % (2-11); Neutrophils Absolute Auto 14.6 x10*3/uL (2.0-8.3); Neutrophils Percent Auto 85.1 % (45-73); Platelet Count 336 X10*3/uL (160-400); Red Blood Count 5.39 X10*6/uL (4.20-5.50); Red Cell Distribution Width 17.5 % (11.0-16.0); White Blood Count 17.2 X10*3/uL (4.8-10.8)
[2024-07-15 13:46] LABS: Alanine Aminotransferase 23 U/L (0-31); Albumin Level 4.1 g/dL (3.5-5.0); Alkaline Phosphatase 97 U/L (39-117); Anion Gap 16 (12-20); Aspartate Amino Transferase 26 U/L (5-31); Bilirubin Total 0.3 mg/dL (0.0-1.0); Blood Urea Nitrogen 28 mg/dL (9-16); Calcium 9.2 mg/dL (8.4-10.2); Carbon Dioxide 29 mmol/L (22-29); Chloride 102 mmol/L (96-108); Creatinine Clr Calc Pharmacy 87.6; Estimated Glomerular Filt Rate > 60; Glucose Random 123 mg/dL (60-115); Potassium 4.6 mmol/L (3.3-5.1); Sodium 142 mmol/L (135-145); Total Protein 6.8 g/dL (6.5-8.0)
--- OUTSIDE RECORDS SUMMARY | 2024-07-15 13:54 | XMS_ITS | Clinical Summary ---
Author Organization [facility] Address [address] [place] [address] Care Team Providers Care Assisted Living Nursing Director Name Role Phone Gustavo Dias MD Primary [...] 016 Zoster Vaccines (1 of 2) 08/16/2015 Alcohol/Substance Use Screening 04/12/2024 Influenza Vaccine (Season Ended) 2024 RSV Vaccine (60+ years old a nd patients) (1 - 1-dose 75+ series) 2040 Insurance [employer] Advance Directives Documents on File Type Date Recorded Patient System Admin Expl anation MOLST 03/03/2024 6:25 AM 4 Care Teams Assisted Living Nursing Director Relationship Specialty Start Date End Date Gustavo Dias MD [address] [place] [address] [phone] PCP - General Internal Medicine 03/01/24
--- OUTSIDE RECORDS SUMMARY | 2024-07-15 13:54 | XMS_ITS | Referral Summary ---
Author Organization [facility] Address [address] [place] [address] Care Team Providers Care Hat And Cap Drying Room Attendant Name Role Phone Gustavo Dias MD Primary Care Provider [phone] Allergies Active Allergy Reactions Criticality Noted Date [...] Documents on File Type Date Recorded Patient Fire Prevention Engineer Eriberto BREAUX 03/03/2024 6:25 AM 4 Care Teams Hat And Cap Drying Room Attendant Relationship Specialty Start Date End Date Gustavo Dias MD [address] [place] [address] [phone] PCP - General Internal Medicine 03/01/24
[2024-07-15 15:34] VITALS: BP 118/89; PULSE 108; RESP 20; TEMP 36.8; O2SAT 94
== END 2024-07-15 15:36 | disposition home or self-care (01) ==
PROVIDERS: Physician Assistant Medical; Emergency Provider Emergency Medicine Emergency Medical Services; PCP Nurse Practitioner Family
DX: M24.451 Recurrent dislocation, right hip (principal); M25.551 Pain in right hip; Z96.641 Presence of right artificial hip joint; E78.5 Hyperlipidemia, unspecified; J44.9 Chronic obstructive pulmonary disease, unspecified; F17.210 Nicotine dependence, cigarettes, uncomplicated; Z79.899 Other long term (current) drug therapy
CPT/HCPCS: 27265; 36415; 73501; 73502; 80053; 85025; 96374; 99284; J1171

== ENCOUNTER → 2024-07-15 12:25 | Outpatient (BNV) | payer OTHER, SELFPAY | PROVIDERS: PCP Nurse Practitioner Family; Visit Provider Radiology Diagnostic Radiology | DX: S73.014A Posterior dislocation of right hip, initial encounter (principal) | CPT/HCPCS: 73501; 73502 ==

== ENCOUNTER 2024-07-23 19:39 | Emergency (ER) | payer OTHER, SELFPAY ==
--- NOTE | ~2024-07-23 | XR_ITS ---
CLINICAL HISTORY: Shortness of breath, chest pain R O CH, pneumoni 1 view chest x-ray Comparison: CT/SR - CT CHEST WO IV CON - 07/10/24 16:42 EDT CR - XR CHEST 1V - 07/09/24 09:57 EDT Findings: Left basilar atelectatic changes, Unchanged. Normal size heart. No acute fracture. IMPRESSION: Left basilar atelectatic changes, unchanged in the interval, otherwise unremarkable. This document has been electronically signed by: Tanya Frias MD on 07/23/2024 20:33:55
[2024-07-23 19:46] VITALS: BP 114/77; BP 200/123; PULSE 113; PULSE 117; RESP 29; O2SAT 96; BMI 37.7
--- NOTE | 2024-07-23 19:56 | ED.SOB ---
HPI - SOB/Dyspnea General Chief Complaint: Dyspnea Stated Complaint: diff breathing Time Seen by Provider: 07/23/24 19:47 Source: patient and EMS Mode of arrival: EMS Limitations: no limitations History of Present Illness ED Provider: Dr. Tito Padgett HPI Narrative: 58-year-old female with a history hyperlipidemia, mood disorder, chronic low back pain, HFpEF, COPD, status post right hip replacement at [facility] [place] on 05/02/2024 with hip dislocation 07/15/2024, admission for pneumonia 07/09/2024 who presents emergency department for evaluation of shortness of breath x4 days. Patient states that she was noted increased swelling in her lower extremities and increased shortness of breath over the last 4 days. Patient states that yesterday, she increased her Lasix dose from 20 mg once a day to 60 mg daily and despite this she was not had any increase in urine output, no change in her peripheral edema and no change in his shortness of breath. She denied fever or chills. She states she was an occasional cough which is nonproductive. She complained of right shoulder/chest pain which is intermittent, lasts minutes and has had multiple episodes per day. The patient states that she has supplemental oxygen at home 2 L via nasal cannula as needed and she was had to wear it continuously over the last 2 days. Patient states she was tried to give herself a nebulizer prior to coming to the emergency department but believes that this made her more short of breath therefore she called 911 he was transported to the emergency department by ambulance. I did review the hospital course for patient was admission on 07/09/2024. Patient was chest x-ray showed left lower lobe infiltrate corresponds to atelectasis and scarring on CT chest with CT chest showed new mild ground-glass opacity right middle lobe likely infectious/ inflammatory . She was treated with IV steroids, nebulizer treatments , IV antibiotics and discharged home on oral antibiotics. Related Data Home Medications ?Medication ?Instructions ?Recorded ?Confirmed baclofen 10 mg tablet 10 mg PO BID PRN muscle spasms 07/09/24 07/09/24 docusate sodium 100 mg capsule 100 mg PO BID PRN Constipation 07/09/24 07/09/24 fluticasone propionate 50 1 spray intranasal Q12H PRN 07/09/24 07/09/24 mcg/actuation nasal Allergy Symptoms spray,suspension venlafaxine 150 mg 150 mg PO DAILY 07/09/24 07/09/24 capsule,extended release 24 hr Previous Rx's ?Medication ?Instructions ?Recorded walker #1 ea 03/30/24 acetaminophen 325 mg tablet 650 mg (2 x 325 mg) PO Q6H PRN 05/05/24 Pain, Mild 1-3,Fever,Headache 30 days #240 tabs Breztri Aerosphere 160 2 inh inhalation BID #32.1 grams 06/26/24 mcg-9mcg-4.8mcg/actuation HFA aerosol inhaler (wehyhmmjzk-izlxsssn-guhppvzalh) clonidine HCl 0.1 mg tablet 0.1 mg PO TID 90 days #270 tabs 06/26/24 empagliflozin 10 mg tablet 10 mg PO DAILY 90 days #90 tabs 06/26/24 (Jardiance) furosemide 20 mg tablet 20 mg PO DAILY #30 tabs 06/26/24 gabapentin 600 mg tablet 600 mg PO TID 30 days #90 tabs 06/26/24 nicotine (polacrilex) 4 mg gum 4 mg buccal Q2H PRN nicotine 06/26/24 cravings #100 ea prednisone 10 mg tablet 10 mg PO .COMPLEX 21 days #65 tabs 06/26/24 trazodone 50 mg tablet 50 mg PO BEDTIME PRN sleep #30 tabs 06/26/24 ipratropium 0.5 mg-albuterol 3 mg 3 ml inhalation RQ4H WHILE AWAKE 06/30/24 (2.5 mg base)/3 mL nebulization PRN shortness of breath or soln wheezing #90 mL amoxicillin 875 mg-potassium 1 tab PO Q12H #6 tabs 07/14/24 clavulanate 125 mg tablet doxycycline monohydrate 100 mg 100 mg PO BID #6 caps 07/14/24 capsule guaifenesin 600 mg tablet, 600 mg PO BID #14 tabs 07/14/24 extended release 12 hr (Mucinex) Allergies Allergy/AdvReac Type Severity Reaction Status Date / Time lansoprazole [Prevacid] Allergy Severe anaphylaxis Verified 07/23/24 19:58 cyclobenzaprine Allergy Intermediate Rash Verified 07/23/24 19:58 [From Flexeril] Review of Systems Review of Systems: Yes all other systems are reviewed and are negative [facility] Past Medical History [facility] Narrative: Social history: Patient was smokes less than 1/2 pack of cigarettes per day times 33 years. She denies alcohol use. She denies drug use. Medical History Pulmonary edema Resides in longterm facility Heart failure with preserved ejection fraction Substance abuse Acute exacerbation of chronic obstructive pulmonary disease Lumbar spondylosis Trochanteric bursitis of right hip Obesity Nicotine dependence, cigarettes, uncomplicated History of sepsis Urinary frequency COPD (chronic obstructive pulmonary disease) Exercise hypoxemia Smoker Bilateral hip pain Dyslipidemia Lower back pain Anxiety associated with depression Somatic dysfunction of left sacroiliac joint Surgical History History of section Family History Family History Father Substance use disorder Mother Substance use disorder Mental health disorder Maternal Grandmother Substance use disorder Mental health disorder Social History Social History Household Members: Spouse Housing: House Housing Other:: currently @ [facility] for rehab Are you a primary child care provider to a significant other at home: No Do you presently have visiting nurse or other home services: No Unable to assess alcohol history related to: Unable to respond Alcohol intake: former Patient Tobacco Use Status: Current everyday Tobacco user Tobacco use type: Cigarette Cigarette Packs Per Day: 0.5 Cigarettes Per Day: 2 Years Smoked: 30 Smoked in Last 30 Days: Yes e-Cigarette/Vaping Use: Never Used Second Hand Smoke Exposure: No Use of substances other than those prescribed or required for medical reasons: No Substance Use Type: Crack/Cocaine Advance Directives: No Advance Directives Information Provided: No Do you have a plan to hurt others: No Plan Patient : No service: No Current occupational status: employed Current occupation: [employer] Cognitive needs: No Hearing needs: No Vision needs: No Physical Exam Vital Signs: Vital Signs: Last Vital Signs Temp 98 F 07/23/24 23:10 Pulse 105 H 07/24/24 00:21 Resp 18 07/24/24 00:21 BP 138/86 07/23/24 23:10 Pulse Ox 94 07/23/24 23:10 O2 Del Method BiPAP 07/23/24 23:10 Oxygen Flow Rate 4 07/23/24 19:46 BMI result Body Mass Index 37.7 Exam: General: Awake, alert, dyspneic and tachypneic, answering all questions appropriately and in full sentences Head: Normocephalic, atraumatic EENT: PERRL, Lids normal, sclera normal, conjunctiva normal, nose normal , ears normal, throat without erythema or exudates Neck: Supple, no adenopathy Lung: Diffuse wheezing, rales and rhonchi, breath sounds symmetric bilaterally Chest: symmetric movement, nontender Heart: regular rate and rhythm, normal S1, S2 no murmurs or rubs Abdomen: soft, non-tender, nondistended, normal bowel sounds Back: no vertebral tenderness, no CVAT Extremities: no deformities, moves all extremities symmetrically, 1+ pitting edema symmetric bilaterally, symmetric erythema to ankles bilaterally Neuro: Awake, alert, oriented, normal speech, cranial nerves intact, moves all extremities symmetrically Psych: Pleasant, cooperative Medications Administered Generic Name Dose Route Start Last Admin Trade Name Freq PRN Reason Stop Dose Admin Magnesium Sulfate 2 gm in 50 mls @ 25 mls/hr 07/24/24 00:10 07/24/24 00:19 Magnesium Sulfate/H2o IV 07/24/24 02:09 25 mls/hr ONCE ONE Administration Discontinued Medications Generic Name Dose Route Start Last Admin Trade Name Freq PRN Reason Stop Dose Admin Albuterol Sulfate 7.5 mg/ 10 mg 07/23/24 20:13 07/23/24 20:30 Albuterol Sulfate 2.5 mg INHALE 07/23/24 20:14 10 mg ONCE ONE Administration Ceftriaxone Sodium 1 gm 07/23/24 20:24 07/23/24 20:44 Ceftriaxone Sodium 1 Gm Vial IVPUSH 07/23/24 20:25 1 gm ONCE ONE Administration Albuterol Sulfate 7.5 mg/ 0 mg 07/24/24 00:11 07/24/24 00:33 Albuterol/Ipratropium 3 ml INHALE 07/24/24 00:12 1 each ONCE ONE Administration Azithromycin 500 mg/ Sodium 250 mls @ 125 mls/hr 07/23/24 20:24 07/23/24 23:06 Chloride IV 07/23/24 22:23 Infused ONCE ONE Infusion Methylprednisolone Sodium Succinate 125 mg 07/23/24 20:24 07/23/24 20:44 Methylprednisolone Sod Succ 125 Mg/2 Ml Vial IVPUSH 07/23/24 20:25 125 mg ONCE ONE Administration Oxycodone HCl 5 mg 07/24/24 00:14 07/24/24 00:18 Oxycodone Hcl Immed Release 5 Mg Tablet PO 07/24/24 00:15 5 mg ONCE STA Administration Medical Decision Making Medical Decision Making [facility] Narrative: 58-year-old female with a history hyperlipidemia, mood disorder, chronic low back pain HFpEF, COPD, status post right hip replacement at [facility] [place] on 05/02/2024 with hip dislocation 07/15/2024dmission for pneumonia 07/09/2024 who presents emergency department for evaluation of shortness of breath,increased peripheral edema, occasional nonproductive cough, right shoulder/chest pain x4 days with symptoms getting worse over the last 24 hours. Patient did increase her Lasix dose with no increased urine output, no change in her edema or shortness of breath. Patient's symptoms got worse today therefore she came to the emergency department by ambulance. Patient was O2 saturation on 5 L of oxygen via nasal cannula is 96%. Patient was tachypneic and dyspneic. Lung exam revealed diffuse wheezing, rales and rhonchi. Lower extremity exam revealed 1+ pitting edema bilaterally symmetric. Differential diagnosis: ?Includes but is not limited to congestive heart failure, myocardial infarction, myocardial ischemia, pneumonia, chronic lung disease exacerbation, electrolyte abnormalities, anemia Course: 21:27 My interpretation patient's laboratory evaluation is as follows: WBC elevated 11,900. H&H low 10.5 and 34.4 significantly decreased from baseline of 14.4 and 45.0 on 07/15/2024. PTT was normal 33.8. VBG revealed low pH of 7.28 with an elevated pCO2 of 91. Bicarb was elevated 43. Sodium elevated 148. Serum bicarb elevated 33. AST elevated 35. High sensitive troponin high detectable at 5.6 but not elevated. BNP was normal at 73. Chest x-ray revealed left lower lobe infiltrate which was seen on her previous x-ray and CT scan of the chest which was consistent with scarring and not an acute infiltrate. Given the venous blood gas results, I am concerned that the patient is retaining CO2 secondary to flare-up of her chronic respiratory disease. Patient was treated with albuterol 10 mg nebulized, ceftriaxone 1 g IV, azithromycin 500 mg IV and Solu-Medrol 125 mg IV. Patient was placed on BiPAP at 20:30 hours. The plan is to keep her on BiPAP for 2 hours and repeat the VBG and troponin. 23:01 The patient was repeat VBG revealed improvement of her pH to 7.38 and improvement of her pCO2 to 62. Therefore I will ask Respiratory therapy to take the patient off BiPAP and see how she does over the next hour. 22:47 Patient was initial high sensitive troponin I was 5.6 and 2.5 hours repeat was unchanged at 3.4, this is reassuring and suggesting the patient did not have myocardial infarction or myocardial injury in his the cause of her chest pain or shortness of breath. 00:38 The patient developed wheezing and was using accessory muscles to breathe. She was given an albuterol 10 mg nebulizer treated and magnesium 2 g IV with no improvement of her breathing. Patient was placed back on BiPAP. Unfortunately, we do not have any ICU beds, therefore I will need to transfer the patient. She was also given Solu-Medrol 60 mg IV. Patient was also complaining of being crease left hip pain and was given oxycodone 5 mg orally. 01:32 I did discuss the patient's presentation with the covering hospitalist at [facility] in [place] and the patient was accepted as an ED to Hospital transfer. Accepting attending is Dr. Rudolph. Admission/Observation Consideration of admission/observation: Escalation of care including admission/observation considered (Yes) Consult Healthcare Provider Management of the patient was discussed with: Hospitalist (Hospitalist at [facility]) Lab Data MDM Lab Attestation statement: I reviewed the patient's lab results. 07/23/24 20:00 07/23/24 20:00 Labs: Lab Results 07/23/24 07/23/24 07/23/24 Range/Units 20:00 20:09 20:45 WBC 11.9 H (4.8-10.8) X10*3/uL RBC 3.85 L D (4.20-5.50) X10*6/uL Hgb 10.5 L D (12.0-16.0) g/dl Hct 34.4 L D (37.0-47.0) % MCV 89.4 (80.0-98.0) fL MCH 27.3 (27.0-33.0) pg MCHC 30.5 L (31.0-35.0) g/dl RDW 18.8 H (11.0-16.0) % Plt Count 344 (160-400) X10*3/uL MPV 9.5 (9.4-12.3) fL Immature Gran % (Auto) 3.9 H (0.0-0.4) % Neut % (Auto) 62.0 (45-73) % Lymph % (Auto) 23.1 (20-40) % Letcher % (Auto) 8.3 (2-11) % Eos % (Auto) 2.4 (0-4) % Baso % (Auto) 0.3 (0-2) % Lymph # (Auto) 2.7 (1.2-4.9) X10*3/uL Letcher # (Auto) 1.0 (0.1-1.2) X10*3/uL Eos # (Auto) 0.3 (0.0-0.4) X10*3/uL Baso # (Auto) 0.0 (0.0-0.2) X10*3/uL Abs Immat Gran (auto) 0.46 H (0.00-0.03) X10*3/uL Absolute Neuts (auto) 7.3 (2.0-8.3) x10*3/uL Absolute Nucleated RBC 0.020 H (0.0-0.012) X10*3/uL Nucleated RBC % (auto) 0.2 (0.0-0.2) /100WBC APTT 33.8 (26.0-36.8) SEC VBG pH 7.28 L (7.32-7.43) VBG pCO2 91 mmHg VBG pO2 45 mmHg VBG HCO3 43 H (22-26) mmol/L VBG O2 Saturation 70.0 % VBG Base Excess 13.3 mmol/L Sodium 148 H (135-145) mmol/L Potassium 4.2 (3.3-5.1) mmol/L Chloride 104 (96-108) mmol/L Carbon Dioxide 33 H (22-29) mmol/L Anion Gap 15 (12-20) BUN 12 (9-16) mg/dL Creatinine 0.70 (0.5-1.4) mg/dL Estim Creat Clear Calc 104.2 Estimated GFR > 60 Random Glucose 109 (60-115) mg/dL Lactic Acid 1.4 (0.5-2.0) mmol/L Calcium 8.9 (8.4-10.2) mg/dL Total Bilirubin 0.3 (0.0-1.0) mg/dL AST 35 H (5-31) U/L ALT 21 (0-31) U/L Alkaline Phosphatase 99 (39-117) U/L Troponin I High Sens 5.6 (<3.5-17.0) ng/L B-Natriuretic Peptide 73 (<100) pg/mL Total Protein 6.4 L (6.5-8.0) g/dL Albumin 3.5 (3.5-5.0) g/dL Influenza Type A (PCR) NEGATIVE (Negative) Influenza Type B (PCR) NEGATIVE (Negative) RSV RNA Qual (PCR) NEGATIVE (Negative) SARS-CoV-2 RNA (RT-PCR) NEGATIVE (Negative) 07/23/24 07/23/24 Range/Units 22:47 22:54 WBC (4.8-10.8) X10*3/uL RBC (4.20-5.50) X10*6/uL Hgb (12.0-16.0) g/dl Hct (37.0-47.0) % MCV (80.0-98.0) fL MCH (27.0-33.0) pg MCHC (31.0-35.0) g/dl RDW (11.0-16.0) % Plt Count (160-400) X10*3/uL MPV (9.4-12.3) fL Immature Gran % (Auto) (0.0-0.4) % Neut % (Auto) (45-73) % Lymph % (Auto) (20-40) % Letcher % (Auto) (2-11) % Eos % (Auto) (0-4) % Baso % (Auto) (0-2) % Lymph # (Auto) (1.2-4.9) X10*3/uL Letcher # (Auto) (0.1-1.2) X10*3/uL Eos # (Auto) (0.0-0.4) X10*3/uL Baso # (Auto) (0.0-0.2) X10*3/uL Abs Immat Gran (auto) (0.00-0.03) X10*3/uL Absolute Neuts (auto) (2.0-8.3) x10*3/uL Absolute Nucleated RBC (0.0-0.012) X10*3/uL Nucleated RBC % (auto) (0.0-0.2) /100WBC APTT (26.0-36.8) SEC VBG pH 7.38 (7.32-7.43) VBG pCO2 62 mmHg VBG pO2 66 mmHg VBG HCO3 37 H (22-26) mmol/L VBG O2 Saturation 81.0 % VBG Base Excess 10.5 mmol/L Sodium (135-145) mmol/L Potassium (3.3-5.1) mmol/L Chloride (96-108) mmol/L Carbon Dioxide (22-29) mmol/L Anion Gap (12-20) BUN (9-16) mg/dL Creatinine (0.5-1.4) mg/dL Estim Creat Clear Calc Estimated GFR Random Glucose (60-115) mg/dL Lactic Acid (0.5-2.0) mmol/L Calcium (8.4-10.2) mg/dL Total Bilirubin (0.0-1.0) mg/dL AST (5-31) U/L ALT (0-31) U/L Alkaline Phosphatase (39-117) U/L Troponin I High Sens 3.4 (<3.5-17.0) ng/L B-Natriuretic Peptide (<100) pg/mL Total Protein (6.5-8.0) g/dL Albumin (3.5-5.0) g/dL Influenza Type A (PCR) (Negative) Influenza Type B (PCR) (Negative) RSV RNA Qual (PCR) (Negative) SARS-CoV-2 RNA (RT-PCR) (Negative) Independent Interpretation I performed an independent interpretation of an: EKG Interpretation: My independent interpretation patient's 12 EKG done on 07/23/2024 at 20:20 hours is as follows: Sinus tachycardia with a rate of 106, normal TN interval, QRS duration QTC interval, no ST segment elevation, no ST segment depression, Q-wave in lead 3, no significant T-wave abnormalities. Compared to an EKG dated 06/17/2024 at 19:34 hours and it was no significant change, Q-wave was old. My independent interpretation patient's one-view chest x-ray is as follows: Left lower lobe infiltrate/atelectasis unchanged from previous x-ray. Noted to be consistent with scarring on previous CT scan. Radiology Impression Discussion of test interpretation with radiology: I have reviewed the radiologist's reading. Radiologist Impression: 1 view chest x-ray Comparison: CT/SR - CT CHEST WO IV CON - 07/10/24 16:42 EDT CR - XR CHEST 1V - 07/09/24 09:57 EDT Findings: Left basilar atelectatic changes, Unchanged. Normal size heart. No acute fracture. IMPRESSION: Left basilar atelectatic changes, unchanged in the interval, otherwise unremarkable. This document has been electronically signed by: Tanya Frias MD on 07/23/2024 20:33:55 Independent Historian Clinical information obtained from an independent historian. History obtained from or confirmed by: EMS External Record Review External record reviewed: Inpatient record Chronic Conditions COPD, congestive heart failure Critical Care Time Critical Care Time Critical Care Time: Yes Total Critical Care Time: 120 Attestation: Critical Care: The patient was critically ill with a high probability of imminent or life threatening deterioration. I spent greater than 30 minutes of discontinuous time evaluating the patient,delivering critical care at the bedside, discussing and evaluating pertinent data with consultants. Critical care time does not include time spent performing separately billable procedures or teaching. Total time spent performing critical care was 120 minutes. Discharge Plan Discharge Clinical Impression: Respiratory failure, acute, COPD exacerbation, Hypercarbia Patient Disposition: [facility] Transfer Details: [facility]: Accepting attending Dr. Rudolph Prescriptions: No Action (DME) walker Misc See Rx Instructions .MEDSUPPLY Qty: 1 0RF Rx Instructions: Folding Front wheeled walker duration 99 days ipratropium-albuterol 0.5 mg-3 mg(2.5 mg base)/3 mL solution for nebulization 3 ml inhalation RQ4H WHILE AWAKE PRN (Reason: shortness of breath or wheezing) Qty: 90 0RF venlafaxine 150 mg capsule,extended release 24hr 150 mg PO DAILY baclofen 10 mg tablet 10 mg PO BID PRN (Reason: muscle spasms) docusate sodium 100 mg capsule 100 mg PO BID PRN (Reason: Constipation) fluticasone propionate 50 mcg/actuation spray,suspension 1 spray intranasal Q12H PRN (Reason: Allergy Symptoms) amoxicillin-pot clavulanate 875-125 mg Tablet 1 tab PO Q12H Qty: 6 0RF doxycycline monohydrate 100 mg capsule 100 mg PO BID Qty: 6 0RF guaifenesin [Mucinex] 600 mg Tablet Extended Release 12hr 600 mg PO BID Qty: 14 0RF acetaminophen 325 mg Tablet 650 mg PO Q6H PRN (Reason: Pain, Mild 1-3,Fever,Headache) 30 Days Qty: 240 0RF Breztri Aerosphere 160-9-4.8 mcg/actuation HFA aerosol inhaler 2 inh inhalation BID Qty: 32.1 1RF clonidine HCl 0.1 mg tablet 0.1 mg PO TID 90 Days Qty: 270 1RF Jardiance 10 mg tablet 10 mg PO DAILY 90 Days Qty: 90 0RF furosemide 20 mg tablet 20 mg PO DAILY Qty: 30 2RF Protocol: Hold for SBP< HOLD for SBP < : 90 gabapentin 600 mg tablet 600 mg PO TID 30 Days Qty: 90 0RF Rx Instructions: TAKE WITH 100 MG; TDD 700 MG TID trazodone 50 mg tablet 50 mg PO BEDTIME PRN (Reason: sleep) Qty: 30 3RF nicotine (polacrilex) 4 mg gum 4 mg buccal Q2H PRN (Reason: nicotine cravings) Qty: 100 0RF prednisone 10 mg tablet 10 mg PO .COMPLEX 21 Days Qty: 65 0RF Patient Comments: 07/09/24: Patient started 3 tabs yesterday 07/08/24 Rx Instructions: 10 mg orally 6 tabs for 3 days, 5tabs for 3 days, 4t for 3d, 3t for 3d, 2t for 3d, 1t for 3d, .5 tabs for 3 days; Print Language: Danish
--- NOTE | 2024-07-23 19:58 | ECG_ITS ---
Test Reason : CHEST TIGHTNESS, SOB Blood Pressure : */* mmHG Vent. Rate : 106 BPM Atrial Rate : 106 BPM P-R Int : 128 ms QRS Dur : 74 ms QT Int : 334 ms P-R-T Axes : 52 16 36 degrees QTcB Int : 443 ms Sinus tachycardia Otherwise normal ECG When compared with ECG of 17-Jun-2024 19:34, No significant change was found Referred By: Tito Padgett Electronically Signed By: PAOLA TOWNSEND MD
[2024-07-23 20:08] LABS: MANUAL DIFF FLAG NO
[2024-07-23 20:10] LABS: Basophils Percent Auto 0.3 % (0-2); Eosinophils Absolute Auto 0.3 X10*3/uL (0.0-0.4); Eosinophils Percent Auto 2.4 % (0-4); Hematocrit 34.4 % (37.0-47.0); Hemoglobin 10.5 g/dl (12.0-16.0); Imm Gran Abs Auto 0.46 X10*3/uL (0.00-0.03); Imm Gran Pct Auto 3.9 % (0.0-0.4); Lymphocytes Absolute Auto 2.7 X10*3/uL (1.2-4.9); Lymphocytes Percent Auto 23.1 % (20-40); Mean Corpuscular HGB Conc 30.5 g/dl (31.0-35.0); Mean Corpuscular Hemoglobin 27.3 pg (27.0-33.0); Mean Corpuscular Volume 89.4 fL (80.0-98.0); Mean Platelet Volume 9.5 fL (9.4-12.3); Monocytes Percent Auto 8.3 % (2-11); NRBC Pct Auto 0.2 /100WBC (0.0-0.2); Neutrophils Absolute Auto 7.3 x10*3/uL (2.0-8.3); Platelet Count 344 X10*3/uL (160-400); Red Blood Count 3.85 X10*6/uL (4.20-5.50); Red Cell Distribution Width 18.8 % (11.0-16.0); White Blood Count 11.9 X10*3/uL (4.8-10.8)
[2024-07-23 20:14] LABS: VBG Base Excess 13.3 mmol/L; VBG HCO3 43 mmol/L (22-26); VBG pCO2 91 mmHg; VBG pH 7.28 (7.32-7.43); VBG pO2 45 mmHg
[2024-07-23 20:15] LABS: Venous Blood Gas Refer to POC result
[2024-07-23 20:17] VITALS: PULSE 98; RESP 24; O2SAT 94
[2024-07-23 20:18] LABS: Partial Thromboplastin Time 33.8 SEC (26.0-36.8)
[2024-07-23 20:25] LABS: Lactic Acid 1.4 mmol/L (0.5-2.0)
[2024-07-23] MEDS: Albuterol Sulfate 7.5 MG, Albuterol Sulfate (0.083%) 2.5 MG 10 MG INHALE (20:30)
[2024-07-23 20:32] LABS: Troponin-I High Sensitivity 5.6 ng/L (<3.5-17.0)
[2024-07-23 20:36] LABS: B Type Natriuretic Peptide 73 pg/mL (<100)
[2024-07-23 20:37] VITALS: PULSE 107; RESP 21; O2SAT 97
[2024-07-23 20:37] LABS: Alanine Aminotransferase 21 U/L (0-31); Albumin Level 3.5 g/dL (3.5-5.0); Alkaline Phosphatase 99 U/L (39-117); Anion Gap 15 (12-20); Aspartate Amino Transferase 35 U/L (5-31); Bilirubin Total 0.3 mg/dL (0.0-1.0); Blood Urea Nitrogen 12 mg/dL (9-16); Calcium 8.9 mg/dL (8.4-10.2); Carbon Dioxide 33 mmol/L (22-29); Chloride 104 mmol/L (96-108); Creatinine Clr Calc Pharmacy 104.2; Estimated Glomerular Filt Rate > 60; Glucose Random 109 mg/dL (60-115); Potassium 4.2 mmol/L (3.3-5.1); Sodium 148 mmol/L (135-145); Total Protein 6.4 g/dL (6.5-8.0)
[2024-07-23] MEDS: Azithromycin 500 MG in 0.9 % Sodium Chloride 250 ML 125 MG IV (20:44)
[2024-07-23] MEDS: cefTRIAXone sodium 1 GM VIAL IVPUSH (20:44)
[2024-07-23] MEDS: methylPREDNISolone Sod Succ 125 MG/2 ML VIAL IVPUSH (20:44)
[2024-07-23 20:45] VITALS: PULSE 103; RESP 31; O2SAT 93
--- NOTE | 2024-07-23 20:45 | PC.NURSE ---
RT in room placing patient on bipap now.
[2024-07-23 21:28] LABS: Influenza A PCR NEGATIVE (Negative); Influenza B PCR NEGATIVE (Negative); Resp Syncy Virus RNA Qual PCR NEGATIVE (Negative); SARS COV2 PCR INHOUSE NEGATIVE (Negative)
[2024-07-23 22:59] LABS: VBG Base Excess 10.5 mmol/L; VBG HCO3 37 mmol/L (22-26); VBG pCO2 62 mmHg; VBG pH 7.38 (7.32-7.43); VBG pO2 66 mmHg
[2024-07-23 23:00] LABS: Venous Blood Gas Refer to POC result
[2024-07-23 23:10] VITALS: BP 138/86; PULSE 98; RESP 16; TEMP 36.6; O2SAT 94
[2024-07-23 23:17] LABS: Troponin-I High Sensitivity 3.4 ng/L (<3.5-17.0)
--- NOTE | 2024-07-23 23:18 | PC.NURSE ---
pt came off bipap at this time, placed on 2L O2 by RT
--- NOTE | 2024-07-23 23:28 | PC.NURSE ---
pt very lethargc, sleepy, but arouseable. A&Ox4 - answering all questions appropriately. MD at bedside assessing patient. pt wearing 2L O2, on traffic monitor specialist, 96% O2. plan to watch patient for 1 hr off bipap and admit to hospital .
[2024-07-24] MEDS: oxyCODONE HCl Immed Release 5 MG TABLET PO (00:18)
[2024-07-24] MEDS: Magnesium Sulfate/H2O 2 GM/50 ML PIGGYBACK IV (00:19)
[2024-07-24 00:21] VITALS: PULSE 105; RESP 18; O2SAT 96
--- NOTE | 2024-07-24 00:22 | PC.NURSE ---
pt reports breathing worsening again after being off bipap. respirations back up to 30-35. RT called and MD at bedside, bilateral wheezing noted. pt receiving duoneb tx and iv mag now.
[2024-07-24] MEDS: Albuterol Sulfate 7.5 MG, Albuterol/Iprat 2.5/0.5MG 3 ML 3 ML INHALE (00:33)
--- NOTE | 2024-07-24 00:39 | PC.NURSE ---
pt going back on bipap at this time.
[2024-07-24] MEDS: methylPREDNISolone Sod Succ 125 MG/2 ML VIAL 60 MG IVPUSH (00:58)
[2024-07-24 00:59] VITALS: PULSE 102; RESP 24; O2SAT 95
--- NOTE | 2024-07-24 01:44 | PC.NURSE ---
pt being tx to [facility] as we do not have ICU beds available and pt is on bipap
--- NOTE | 2024-07-24 01:49 | PC.NURSE ---
nurse to nurse report called to [facility] here now to transport pt
[2024-07-24 02:00] VITALS: BP 138/86; PULSE 98; RESP 16; TEMP 36.6; O2SAT 94
== END 2024-07-24 02:30 | disposition short-term general hospital (02) ==
PROVIDERS: Emergency Provider Emergency Medicine Emergency Medical Services
DX: J96.92 Respiratory failure, unspecified with hypercapnia (principal); J44.1 Chronic obstructive pulmonary disease with (acute) exacerbation; R07.9 Chest pain, unspecified; M79.89 Other specified soft tissue disorders; E78.5 Hyperlipidemia, unspecified; F39 Unspecified mood [affective] disorder; Z79.899 Other long term (current) drug therapy; Z03.818 Encounter for observation for suspected exposure to other biological agents ruled out
CPT/HCPCS: 0241U; 36415; 71045; 80053; 82803; 83605; 83880; 84484; 85025; 85730; 87040; 93005; 94640; 96365; 96366; 96367; 96375; 96376; 99285; J0456; J0696; J2919; J3475

== ENCOUNTER → 2024-07-23 19:58 | Outpatient (BNV) | payer OTHER, SELFPAY | PROVIDERS: Emergency Provider Emergency Medicine Emergency Medical Services; Visit Provider Internal Medicine Cardiovascular Disease | DX: R00.0 Tachycardia, unspecified (principal) | CPT/HCPCS: 93010 ==

== ENCOUNTER → 2024-07-23 19:58 | Outpatient (BNV) | payer OTHER, SELFPAY | PROVIDERS: Emergency Provider Emergency Medicine Emergency Medical Services; Visit Provider Student in an Organized Health Care Education/Training Program | DX: R06.02 Shortness of breath (principal); R07.9 Chest pain, unspecified | CPT/HCPCS: 71045 ==

== ENCOUNTER 2024-08-04 14:05 | Emergency (ER) | payer OTHER, SELFPAY ==
[2024-08-04] VITALS (10 sets, daily range): BP systolic 91–154; BP diastolic 51–92; PULSE 93–102; RESP 10–22; TEMP 36.5–36.9; O2SAT 93–99; BMI 39.6
--- NOTE | ~2024-08-04 | XR_ITS ---
CLINICAL HISTORY: post reduction 3 view, pelvis and right hip Comparison: CR/SR - XR HIP RT W PEL1V - 08/04/24 15:15 EDT Findings: The femoral and acetabular components of the right hip prosthesis are now in satisfactory alignment. No acute fracture or hardware loosening. IMPRESSION: 1. Satisfactory reduction of the dislocated right hip prosthesis. This document has been electronically signed by: Yareli Delgado DO on 08/04/2024 16:49:06
--- NOTE | ~2024-08-04 | XR_ITS ---
EXAMINATION: XR HIP 1 VIEW RIGHT WITH PELVIS HISTORY: pain COMPARISON: Comparison is made with the prior examination dated 07/15/2024. FINDINGS: A single AP view of the pelvis and two views of the right hip are submitted. The patient is again noted to be status post right total hip arthroplasty. There is superior dislocation of the femoral stem component. No fracture is seen. The soft tissues are unremarkable. There is degenerative disc disease of the spine. XR/XR hip RT w PEL1V IMPRESSION: Superior dislocation of the femoral stem component of a right total hip arthroplasty. Electronically signed by: Neel Calderón MD 08/04/2024 03:31 PM EDT
--- OUTSIDE RECORDS SUMMARY | 2024-08-04 15:04 | XMS_ITS | Clinical Summary ---
Author Organization [facility] Address [address] [place] [address] Care Team Providers Care Title Attorney Name Role Phone Gustavo Dias MD Primary Care Provider [phone] Allergies Active Allergy Reactions Criticality Noted Date [...] Documents on File Type Date Recorded Patient Bulk Sugar Handler Expl anation MOLST 03/03/2024 6:25 AM 4 Care Teams Title Attorney Relationship Specialty Start Date End Date Gustavo Dias MD [address] [place] [address] [phone] PCP - General Internal Medicine 03/01/24
--- OUTSIDE RECORDS SUMMARY | 2024-08-04 15:04 | XMS_ITS | Referral Summary ---
Author Organization [facility] Address [address] [place] [address] Care Team Providers Care Ditch Digger Name Role Phone Gustavo Dias MD Primary Care Provider [phone] Allergies Active Allergy Reactions Criticality Noted Date [...] Documents on File Type Date Recorded Patient Lawn And Garden Technician Eriberto BREAUX 03/03/2024 6:25 AM 4 Care Teams Ditch Digger Relationship Specialty Start Date End Date Gustavo Dias MD [address] [place] [address] [phone] PCP - General Internal Medicine 03/01/24
--- NOTE | 2024-08-04 15:11 | PC.NURSE ---
patient changed into hospital attire and placed on bedpan. patient urinated. no bm.
--- NOTE | 2024-08-04 15:32 | ED.LOWEXIN ---
HPI - Extremity Injury (Lower) General Chief Complaint: Extremity Injury, Lower Stated Complaint: TWISTED RT HIP,?DISLOCATION PER EMS Time Seen by Provider: 08/04/24 14:26 Source: patient, EMS and old records reviewed Mode of arrival: EMS Limitations: no limitations History of Present Illness ED Provider: MATT HPI Narrative: 58 yo female with PMH of COPD on 2L NC, CHF, obesity who had R THR in April she states since then she has had 3 dislocations of the hip - today is the 3rd. She has a brace at home unclear if she is wearing it. She notes no head trauma or LOC. She has no numbness or weakness. She states she same spot on her kitchen floor causes it - she steps down on the R foot and turns just to reach for a pot and her hip goes out. She has 10/10 pain. No other injuries reported. complaint: hip injury Onset (ago): minute(s) ([employer]) Injury: Right: hip Type of Injury: other ( twisted foot wrong ) Place: home Severity: moderate Relieving factors: immobilization Exacerbating factors: movement Context: other Associated symptoms: snap/pop sensation Other symptoms: none Related Data Home Medications ?Medication ?Instructions ?Recorded ?Confirmed baclofen 10 mg tablet 10 mg PO BID PRN muscle spasms 07/09/24 07/09/24 docusate sodium 100 mg capsule 100 mg PO BID PRN Constipation 07/09/24 07/09/24 fluticasone propionate 50 1 spray intranasal Q12H PRN 07/09/24 07/09/24 mcg/actuation nasal Allergy Symptoms spray,suspension venlafaxine 150 mg 150 mg PO DAILY 07/09/24 07/09/24 capsule,extended release 24 hr Previous Rx's ?Medication ?Instructions ?Recorded walker #1 ea 03/30/24 acetaminophen 325 mg tablet 650 mg (2 x 325 mg) PO Q6H PRN 05/05/24 Pain, Mild 1-3,Fever,Headache 30 days #240 tabs Breztri Aerosphere 160 2 inh inhalation BID #32.1 grams 06/26/24 mcg-9mcg-4.8mcg/actuation HFA aerosol inhaler (plzqwrrdej-nchqdpbh-umtpfoakyg) clonidine HCl 0.1 mg tablet 0.1 mg PO TID 90 days #270 tabs 06/26/24 empagliflozin 10 mg tablet 10 mg PO DAILY 90 days #90 tabs 06/26/24 (Jardiance) furosemide 20 mg tablet 20 mg PO DAILY #30 tabs 06/26/24 gabapentin 600 mg tablet 600 mg PO TID 30 days #90 tabs 06/26/24 nicotine (polacrilex) 4 mg gum 4 mg buccal Q2H PRN nicotine 06/26/24 cravings #100 ea prednisone 10 mg tablet 10 mg PO .COMPLEX 21 days #65 tabs 06/26/24 trazodone 50 mg tablet 50 mg PO BEDTIME PRN sleep #30 tabs 06/26/24 amoxicillin 875 mg-potassium 1 tab PO Q12H #6 tabs 07/14/24 clavulanate 125 mg tablet doxycycline monohydrate 100 mg 100 mg PO BID #6 caps 07/14/24 capsule guaifenesin 600 mg tablet, 600 mg PO BID #14 tabs 07/14/24 extended release 12 hr (Mucinex) ipratropium 0.5 mg-albuterol 3 mg 3 ml inhalation RQ4H WHILE AWAKE 07/31/24 (2.5 mg base)/3 mL nebulization PRN shortness of breath or soln wheezing #90 mL hydrocodone 5 mg-acetaminophen 325 1 tab PO Q6H PRN pain #8 tabs 08/04/24 mg tablet Allergies Allergy/AdvReac Type Severity Reaction Status Date / Time lansoprazole [Prevacid] Allergy Severe anaphylaxis Verified 08/04/24 14:17 cyclobenzaprine Allergy Intermediate Rash Verified 08/04/24 14:17 [From Flexeril] Review of Systems Review of Systems: Constitutional : No Fever, No Chills ENT/Mouth : No Ear Pain, No Hoarseness, No sore throat Eyes: No Eye Pain, No Swelling, No Redness, No Foreign Body Cardiovascular : No Chest Pain, No SOB Respiratory : No Cough, No Dyspnea Gastrointestinal : No Nausea, No Vomiting, No Diarrhea, No abdominal Pain Genitourinary : No Dysuria, No Hematuria Musculoskeletal : positive joint pain, No Myalgias, No Joint Swelling Skin : No Skin lacerations, No rash Neuro : No Weakness, No Numbness, No Loss of Consciousness, No Dizziness, No Headache All other systems reviewed and are negative PMFSH Past Medical History Attestation statement: The following information was validated with the patient. Source: old records reviewed Medical History Pulmonary edema Resides in [facility] facility Heart failure with preserved ejection fraction Substance abuse Acute exacerbation of chronic obstructive pulmonary disease Lumbar spondylosis Trochanteric bursitis of right hip Obesity Nicotine dependence, cigarettes, uncomplicated History of sepsis Urinary frequency COPD (chronic obstructive pulmonary disease) Exercise hypoxemia Smoker Bilateral hip pain Dyslipidemia Lower back pain Anxiety associated with depression Somatic dysfunction of left sacroiliac joint Surgical History History of section Family History Family History Father Substance use disorder Mother Substance use disorder Mental health disorder Maternal Grandmother Substance use disorder Mental health disorder Social History Social History Household Members: Spouse Housing: House Housing Other:: currently @ [facility] for rehab Are you a primary manager respiratory care to a significant other at home: No Do you presently have visiting nurse or other home services: No Unable to assess alcohol history related to: Unable to respond Alcohol intake: former Patient Tobacco Use Status: Current everyday Tobacco user Tobacco use type: Cigarette Cigarette Packs Per Day: 0.5 Cigarettes Per Day: 2 Years Smoked: 30 Smoked in Last 30 Days: Yes e-Cigarette/Vaping Use: Never Used Second Hand Smoke Exposure: No Use of substances other than those prescribed or required for medical reasons: No Substance Use Type: Crack/Cocaine Advance Directives: Yes Advance Directives Information Provided: Yes Advance Directives on File: No Do you have a plan to hurt others: No Plan Patient : No service: No Current occupational status: employed Current occupation: [employer] Cognitive needs: No Hearing needs: No Vision needs: No Physical Exam Vital Signs: Vital Signs: Last Vital Signs Temp 97.7 F 08/04/24 14:18 Pulse 97 08/04/24 16:06 Resp 20 08/04/24 16:06 BP 98/70 08/04/24 16:06 Pulse Ox 94 08/04/24 16:06 O2 Del Method Nasal Cannula 08/04/24 16:06 O2 Flow Rate 2 08/04/24 16:06 Oxygen Flow Rate 2 08/04/24 14:15 BMI result Body Mass Index 39.6 Appearance: Alert. Oriented X3. No acute distress. Eyes: Pupils equal, round and reactive to light. ENT: Pharynx normal. Neck: Normal inspection. Neck supple. CVS: Normal heart rate and rhythm. Pulses normal. Respiratory: No respiratory distress. Breath sounds normal. Abdomen: Soft and nontender. Skin: Skin warm and dry. Normal skin color. Normal skin turgor. Extremities: No lower extremity edema. shortened ext rotated pain at R lateral hip, distal NV intact Neuro: Oriented X 3. No motor deficit. No sensory deficit. CN2-12 intact Course Course Course Narrative: doing well post procedure 425pm Medications Administered Discontinued Medications Generic Name Dose Route Start Last Admin Trade Name Freq PRN Reason Stop Dose Admin Propofol 100 mg 08/04/24 15:33 08/04/24 15:56 Propofol 200 Mg/20 Ml Vial IVPUSH 08/04/24 15:34 100 mg ONCE ONE Administration Medical Decision Making Medical Decision Making [facility] Narrative: 58 yo female with PMH of COPD on 2L NC, CHF, obesity who had R THR in April here with twist of R leg and pop to hip this would be the 3rd dislocation. She is NV intact, last ate at 8am. No other truama reported - will obtain xray, IV dilaudid for pain, prepare for sedation. Ortho Rhianna MALLORY aware and has seen her at bedside. Again discussed she needs to use her abduction brace. Differential Diagnosis Differential Diagnoses: The differential diagnosis associated with the presentation includes dislocation Admission/Observation Consideration of admission/observation: Escalation of care including admission/observation considered once cleared from propofol can go home has been seen by ortho no other injuries no abnormal O2 Consult Healthcare Provider Management of the patient was discussed with: Agricultural Produce Commission Agent (orthopedics aware ) Independent Interpretation I performed an independent interpretation of an: Plain X-Ray (dislocation) Independent Historian Clinical information obtained from an independent historian. History obtained from or confirmed by: EMS External Record Review External record reviewed: Inpatient record and Outpatient record Procedures Orthopedic Joint Reduction Joint #1: Time Out Performed: Yes Side: right Joint Reduction Location: hip Analgesia: procedural sedation Technique used: traction/counter-traction Post-reduction neuro exam: intact Post-reduction vascular: intact Post Reduction X-Ray Obtained: Yes Post Reduction X-Ray Results: reduced Splint Applied: No Patient Tolerated Procedure: well and no complications Procedural Sedation Indication: fracture/dislocation reduction ASA Class: III Mallampati Class: II Time of Last PO Intake: 08:00 Preparation: nuclear monitoring technician applied, pulse oximeter, capnometry used, supplemental O2 applied, reversal agents at bedside, suction/airway equipment at bedside and IV secured IV Propofol dose (mg): 100 Patient Tolerated Procedure: well and no complications Complications: none Critical Care Time Critical Care Time Critical Care Time: Yes Total Critical Care Time: 35 Attestation: review of records, IV dilaudid with improvement in pain, repeat NV assessments I attest to this time spent taking care of the patient Discharge Plan Discharge Clinical Impression: Dislocation of hip joint prosthesis Patient Disposition: Home, Self-Care Instructions: Precautions after Total Joint Replacement Surgery (ED), Total Hip Replacement (DC), Procedural Sedation (ED) Additional Instructions: you need to follow the same precautions no bending down, no hyperflexing the joint you need to wear your abduction brace return for worsening pain, weakness, chest pain, trouble breathing, confusion or any other concerns follow up with orthopedics as discussed Prescriptions: New hydrocodone-acetaminophen 5-325 mg tablet 1 tab PO Q6H PRN (Reason: pain) Qty: 8 0RF Rx Instructions: partial fill okay; Partial Fill upon patient request. No Action (DME) walker Misc See Rx Instructions .MEDSUPPLY Qty: 1 0RF Rx Instructions: Folding Front wheeled walker duration 99 days ipratropium-albuterol 0.5 mg-3 mg(2.5 mg base)/3 mL solution for nebulization 3 ml inhalation RQ4H WHILE AWAKE PRN (Reason: shortness of breath or wheezing) Qty: 90 0RF venlafaxine 150 mg capsule,extended release 24hr 150 mg PO DAILY baclofen 10 mg tablet 10 mg PO BID PRN (Reason: muscle spasms) docusate sodium 100 mg capsule 100 mg PO BID PRN (Reason: Constipation) fluticasone propionate 50 mcg/actuation spray,suspension 1 spray intranasal Q12H PRN (Reason: Allergy Symptoms) amoxicillin-pot clavulanate 875-125 mg Tablet 1 tab PO Q12H Qty: 6 0RF doxycycline monohydrate 100 mg capsule 100 mg PO BID Qty: 6 0RF guaifenesin [Mucinex] 600 mg Tablet Extended Release 12hr 600 mg PO BID Qty: 14 0RF acetaminophen 325 mg Tablet 650 mg PO Q6H PRN (Reason: Pain, Mild 1-3,Fever,Headache) 30 Days Qty: 240 0RF Breztri Aerosphere 160-9-4.8 mcg/actuation HFA aerosol inhaler 2 inh inhalation BID Qty: 32.1 1RF clonidine HCl 0.1 mg tablet 0.1 mg PO TID 90 Days Qty: 270 1RF Jardiance 10 mg tablet 10 mg PO DAILY 90 Days Qty: 90 0RF furosemide 20 mg tablet 20 mg PO DAILY Qty: 30 2RF Protocol: Hold for SBP< HOLD for SBP < : 90 gabapentin 600 mg tablet 600 mg PO TID 30 Days Qty: 90 0RF Rx Instructions: TAKE WITH 100 MG; TDD 700 MG TID trazodone 50 mg tablet 50 mg PO BEDTIME PRN (Reason: sleep) Qty: 30 3RF nicotine (polacrilex) 4 mg gum 4 mg buccal Q2H PRN (Reason: nicotine cravings) Qty: 100 0RF prednisone 10 mg tablet 10 mg PO .COMPLEX 21 Days Qty: 65 0RF Patient Comments: 07/09/24: Patient started 3 tabs yesterday 07/08/24 Rx Instructions: 10 mg orally 6 tabs for 3 days, 5tabs for 3 days, 4t for 3d, 3t for 3d, 2t for 3d, 1t for 3d, .5 tabs for 3 days; Print Language: Canadian
[2024-08-04] MEDS: propofoL 200 MG/20 ML VIAL 100 MG IVPUSH (15:56)
--- NOTE | 2024-08-04 17:04 | PC.NURSE ---
Propofol used at bedside for conscious sedation procedure. Remaining 100mg Propfol wastes in pyxis system with GIOVANNI Singletary and discarded in sharps container in pyxis room.
== END 2024-08-04 18:35 | disposition home or self-care (01) ==
PROVIDERS: Emergency Provider Emergency Medicine; PCP Nurse Practitioner Family
DX: T84.020A Dislocation of internal right hip prosthesis, initial encounter (principal); X50.1XXA Overexertion from prolonged static or awkward postures, initial encounter; Y82.8 Other medical devices associated with adverse incidents; Z96.641 Presence of right artificial hip joint
CPT/HCPCS: 27265; 73502; 96374; 99152; 99153; 99284; 99285; J2704

== ENCOUNTER → 2024-08-04 14:32 | Outpatient (BNV) | payer OTHER, SELFPAY | PROVIDERS: Emergency Provider Emergency Medicine; PCP Nurse Practitioner Family; Visit Provider Radiology Diagnostic Radiology | DX: S73.001A Unspecified subluxation of right hip, initial encounter (principal); T84.020A Dislocation of internal right hip prosthesis, initial encounter | CPT/HCPCS: 73502 ==

== ENCOUNTER 2024-08-07 09:13 | Outpatient (AMB) | payer OTHER, SELFPAY ==
--- NOTE | 2024-08-07 09:15 | MHC.OFFVIS ---
Intake Visit Reasons: PO - R MAMADOU w/NE 05/02/24 Intake Note: Rody is a 58 year old female who presents today for a post operative visit s/p Right MAMADOU 05/02/2024. She has had multiple dislocations since the surgery. She has been seen in the ER 07/12/24 and 08/04/24 for dislocations, at both visits patient was reduced without incident. She reports that she got the hip brace, she is not wearing it. She explains that it is too difficult for her to manage, she does not know how to wear it and it is too bulky. Allergies lansoprazole [Prevacid] Allergy (Severe, Verified 08/07/24 09:16) anaphylaxis cyclobenzaprine [From Flexeril] Allergy (Intermediate, Verified 08/07/24 09:16) Rash HPI HPI PO - R MAMADOU w/NE 05/02/24: Details: Rody is a 58 year old female who presents today for a post operative visit s/p Right MAMADOU 05/02/2024. She has had 2 dislocations since the surgery. She has been seen in the ER 07/12/24 and 08/04/24 for dislocations, at both visits patient was reduced without incident. She reports that she got the hip brace, she is not wearing it. She explains that it is too difficult for her to manage, she does not know how to wear it and it is too bulky. She describes the mechanism of dislocation being the same each time and that is what sounds like her operative foot is planted and she turns away from the foot with her foot externally rotated and extended and has an anterior dislocation. She denies numbness tingling. She states she has been feeling better but still using an assistive device because of poor activity tolerance. [facility], [facility] Medical History Pulmonary edema Resides in prison facility Heart failure with preserved ejection fraction Substance abuse Acute exacerbation of chronic obstructive pulmonary disease Lumbar spondylosis Trochanteric bursitis of right hip Obesity Nicotine dependence, cigarettes, uncomplicated History of sepsis Urinary frequency COPD (chronic obstructive pulmonary disease) Exercise hypoxemia Smoker Bilateral hip pain Dyslipidemia Lower back pain Anxiety associated with depression Somatic dysfunction of left sacroiliac joint Surgical History History of section Family History Father Substance use disorder Mother Substance use disorder Mental health disorder Maternal Grandmother Substance use disorder Mental health disorder Social History Household Members: Spouse Housing: House Housing Other:: currently @ [facility] for rehab Are you a primary daycare teacher to a significant other at home: No Do you presently have visiting nurse or other home services: No Unable to assess alcohol history related to: Unable to respond Alcohol intake: former Patient Tobacco Use Status: Current everyday Tobacco user Tobacco use type: Cigarette Cigarette Packs Per Day: 0.5 Cigarettes Per Day: 2 Years Smoked: 30 e-Cigarette/Vaping Use: Never Used Second Hand Smoke Exposure: No Substance Use Type: Crack/Cocaine service: No Current occupational status: employed Current occupation: [employer] Cognitive needs: No Hearing needs: No Vision needs: No Physical Exam Extrem Other: Incision is clean dry and intact. She is walking comfortably with a walker. She has no pain with hip range of motion. Results Reviewed Results Reviewed: I personally reviewed relevant radiographs. Reduced right MAMADOU with no hardware complications Assessment & Plan Assessment & Plan (1) Dislocation of prosthesis of right hip joint: Code(s): T84.020A - Dislocation of internal right hip prosthesis, initial encounter Category: Medical Plan: This is a 58-year-old woman who had a right hip replacement for AVN about 3 months ago. Her postop course has been complicated by 2-3 dislocations. I am certain she has had 2 in the ED but she states that initially she had a pseudo dislocation that self reduced. Every time it has been an anterior dislocation. Her cup looks appropriately positioned on radiographs and she is adamant that she can not undergo surgery at this time. I recommend conversion to a MDM cup with a longer head. She has a +0 32 and I can convert to a +3 or +8 MDM which I think would be helpful. Again the alignment appears appropriate on radiographs and she is significantly deconditioned. I discussed with her the benefits of surgery. She states that from a financial perspective she absolutely can not undergo surgery at this point in time. I did strongly recommend surgery. I would be less adamant if she was compliant with her brace wear but it does not appear that she finds it reasonable to wear every day. I recommend that she wear her abduction brace and that she attend physical therapy. I will see her back in 6 weeks. Orders: Orders PT Evaluation and Treatment Today T84.020A - Dislocation of internal right hip prosthesis, initial encounter Coding Level of Care Code Global (21916) Diagnoses Dislocation of prosthesis of right hip joint T84.020A
--- OUTSIDE RECORDS SUMMARY | 2024-08-07 10:04 | XMS_ITS | Referral Summary ---
Author Organization [facility] Address [address] [place] [address] Care Team Providers Care Lime Sludge Kiln Operator Name Role Phone Gustavo Dias MD [...] Documents on File Type Date Recorded Patient Road Test Examiner Eriberto BREAUX 03/03/2024 6:25 AM 4 Care Teams Lime Sludge Kiln Operator Relationship Specialty Start Date End Date Gustavo Dias MD [address] [place] [address] [phone] PCP - General Internal Medicine 03/01/24
--- OUTSIDE RECORDS SUMMARY | 2024-08-07 10:04 | XMS_ITS | Clinical Summary ---
Author Organization [facility] Address [address] [place] [address] Care Team Providers Care Coal Trimmer Name Role Phone Gustavo Dias MD Primary [...] Documents on File Type Date Recorded Patient Stripping And Booking Machine Operator Expl anation MOLST 03/03/2024 6:25 AM 4 Care Teams Coal Trimmer Relationship Specialty Start Date End Date Gustavo Dias MD [address] [place] [address] [phone] PCP - General Internal Medicine 03/01/24
== END 2024-08-07 09:44 | disposition home or self-care (01) ==
LOC: HO.HOS 09:14
PROVIDERS: Visit Provider Orthopaedic Surgery
DX: T84.020A Dislocation of internal right hip prosthesis, initial encounter (principal)
CPT/HCPCS: 99213

== ENCOUNTER → 2024-08-07 09:13 | Outpatient (BNVA) | payer OTHER, SELFPAY | PROVIDERS: Visit Provider Orthopaedic Surgery | DX: T84.020D Dislocation of internal right hip prosthesis, subsequent encounter (principal); X58.XXXD Exposure to other specified factors, subsequent encounter; Z47.1 Aftercare following joint replacement surgery | CPT/HCPCS: 99212 ==

== ENCOUNTER 2024-08-08 10:17 | Outpatient (AMB) | payer OTHER, SELFPAY ==
[2024-08-08 10:22] VITALS: BP 130/82; PULSE 105; O2SAT 91; BMI 38.9
--- NOTE | 2024-08-08 10:22 | MHC.OFFVIS ---
Vital Signs 08/08/24 10:22 Height 5 ft 1 in Weight 206 lb 2.115 oz BMI 38.9 BP 130/82 Blood Pressure Location Lt brachial Position Sitting Pulse 105 H Pulse Source Pulse Oximeter Pulse Oximetry (%) 91 L Oxygen Delivery Method Room Air Intake Visit Reasons: COPD Intake Note: pt is here for follow up and states she is feeling short of breath with exertion, and it is really affecting her life., has oxygen at home, [employer] for night time, and prn daytime use Director Of Environmental Services Required: No Allergies lansoprazole [Prevacid] Allergy (Severe, Verified 08/08/24 11:42) anaphylaxis cyclobenzaprine [From Flexeril] Allergy (Intermediate, Verified 08/08/24 11:42) Rash Medication List - Last Reconciled 08/08/24 by Ramon Avila MD acetaminophen 650 mg (2 x 325 mg) PO Q6H PRN 30 days baclofen 10 mg PO BID PRN Breztri Aerosphere 160-9-4.8 mcg/actuation (ufpnghueia-wzmbdabj-wlmvfsozox) 2 inhalations inhalation BID NS clonidine HCl 0.1 mg PO TID 90 days docusate sodium 100 mg PO BID PRN empagliflozin (Jardiance) 10 mg PO DAILY 90 days fluticasone propionate 50 mcg/actuation 1 spray intranasal Q12H PRN furosemide 20 mg See Protocol PO DAILY gabapentin 600 mg PO TID 30 days guaifenesin ER (Mucinex) 600 mg PO BID hydrocodone-acetaminophen 5-325 mg 1 tab PO Q6H PRN ipratropium-albuterol 0.5 mg-3 mg(2.5 mg base)/3 mL 3 mL inhalation RQ4H WHILE AWAKE PRN nicotine (polacrilex) 4 mg buccal Q2H PRN trazodone 50 mg PO BEDTIME PRN venlafaxine ER 150 mg PO DAILY walker Folding Front wheeled walker duration 99 days HPI HPI COPD: Details: RM IS 58 YEARS OLD FEMALE WITH LIFE LONG LONG HISTORY OF SMOKING, AND HAS ADVANCED COPD. SHE WAS IN [facility] 3 WEEKS AGO FOR AN ACUTE EXACERBATION OF COPD. SHE WAS AGAIN SEEN IN THE EMERGENCY ROOM ON 07/23 AND FOUND TO HAVE RESPIRATORY FAILURE WITH HYPERCAPNIA, SHE WAS TRANSFERRED TO [facility] WHERE SHE STAYED FOR 3 DAYS AND WAS TREATED WITH BIPAP FOR 24 HOURS. SINCE HER DISCHARGE FROM [facility] NOW SHE HAS REMAINED STABLE. SHE REMAINS ALERT WITHOUT CHANGE IN THE MENTAL STATUS. SHE DOES USE OXYGEN 2 L/MINUTE AT NIGHT AND ONLY P.R.N. DURING THE DAYTIME. BECAUSE OF HER RECURRENT DISLOCATION OF THE RIGHT HIP, SHE GETS BOUTS OF SEVERE PAIN AND ENDS UP USING ACETAMINOPHEN WITH HYDROCODONE 1 OR 2 TABLETS Q.6 HOURS. HER CURRENT LEVEL OF SMOKING IS 3-5 CIGARETTES A DAY COUNT INCLUDES THE [facility] Medical History Respiratory failure with hypoxia and hypercapnia Pulmonary edema Resides in correction facility Heart failure with preserved ejection fraction Substance abuse Acute exacerbation of chronic obstructive pulmonary disease Lumbar spondylosis Trochanteric bursitis of right hip Obesity Nicotine dependence, cigarettes, uncomplicated History of sepsis Urinary frequency COPD (chronic obstructive pulmonary disease) Exercise hypoxemia Smoker Bilateral hip pain Dyslipidemia Lower back pain Anxiety associated with depression Somatic dysfunction of left sacroiliac joint Surgical History History of section Family History Father Substance use disorder Mother Substance use disorder Mental health disorder Maternal Grandmother Substance use disorder Mental health disorder Social History Household Members: Spouse Housing: House Housing Other:: currently @ [facility] for rehab Are you a primary career manager to a significant other at home: No Do you presently have visiting nurse or other home services: No Unable to assess alcohol history related to: Unable to respond Alcohol intake: former Patient Tobacco Use Status: Current everyday Tobacco user Tobacco use type: Cigarette Cigarette Packs Per Day: 0.5 Cigarettes Per Day: 2 Years Smoked: 30 e-Cigarette/Vaping Use: Never Used Second Hand Smoke Exposure: No Substance Use Type: Crack/Cocaine service: No Current occupational status: employed Current occupation: [employer] Cognitive needs: No Hearing needs: No Vision needs: No Review of Systems Const All systems reviewed & are unremarkable except as noted in HPI and below Eyes Reports no additional complaints ENT Reports no additional complaints Card Denies chest pain, Denies irregular heart rhythm and Reports dyspnea on exertion Resp Reports as per HPI, Reports dyspnea on exertion and Denies wheezing GI Reports no additional complaints Reports no additional complaints Musc Reports back pain, Reports myalgias and Reports arthralgias (Painful right hip and has difficulty in standing and walking) Skin/Breast Reports system reviewed and no additional complaints, except as documented Neuro Reports no additional complaints Psych Reports anxiety Endo Reports no additional complaints Aller/Immun Denies wheezing Physical Exam Vital Signs: Last Vital Signs Pulse 105 H 08/08/24 10:22 BP 130/82 08/08/24 10:22 Pulse Ox 91 L 08/08/24 10:22 Oxygen Delivery Method Room Air 08/08/24 10:22 BMI result Body Mass Index 38.9 Const General: comfortable, no acute distress, alert and awake Orientation/consciousness: patient oriented x3 HEENT Head: Yes normal to inspection General nose exam: No nasal polyps present and No nasal discharge present Face and sinus: Yes sinuses nontender Mouth: oropharynx normal (MUCOSA IS DRY AND SLIGHTLY REDDISH, NO EXUDATES) Throat: Yes posterior oropharynx normal Eyes General: appearance normal, both eyes and all related structures Neck Neck: Yes normal visual inspection, Yes no lymphadenopathy, Yes trachea midline and Yes no JVD Thyroid: Thyroid normal Chest Chest palpation & inspection: normal inspection of the chest, normal palpation of entire chest wall and no tenderness Resp Other: PERCUSSION NOTE IS RESONANT, BREATH SOUNDS ARE DISTANT BUT EQUAL ON BOTH SIDES. NO WHEEZES RHONCHI OR CREPITATIONS ARE HEARD . Cardio Palpation: normal PMI Rate: regular rate Rhythm: regular rhythm Heart sounds: no gallops and no murmurs Peripheral pulses: Peripheral pulses 2+ throughout GI Palpation (GI): Soft to palpation, nontender, No hepatosplenomegaly present and no masses Auscultation: normal bowel sounds Back/Spine/Pelvis Thoracic/Lumbar Spine: thoracic and lumbar spine normal to inspection Skin General skin exam: no rashes or lesions noted Neuro General: patient oriented x3 and no focal motor deficits Cranial nerves: Yes CN's II-XII intact bilaterally Extrem General: No normal to inspection (Patient is in wheelchair and not able to stand or walk due to severe pain. ), Yes no clubbing, cyanosis or edema and Yes no calf tenderness Psych Appearance: grossly normal and well kempt Speech and movement: Normal speech and movement present Results Reviewed Results Reviewed: NOTES FROM HER RECENT HOSPITALIZATION REVIEWED. VENOUS BLOOD GAS STUDY ON 07/23 IN EMERGENCY ROOM . 1 - PH 7.28 PCO2 91 PO2 45 2: 7.38 62 66 ( IMPROVED ) WITH BIPAP VBGs TODAY : Assessment & Plan Assessment & Plan (1) COPD (chronic obstructive pulmonary disease): Comment: THIS PATIENT IS A KNOWN CASE OF ADVANCED CHRONIC OBSTRUCTIVE PULMONARY DISEASE. DEFINITELY RELATED TO HER LIFELONG SMOKING. RECENTLY HAS BEEN TREATED AT [facility] AND THEN AT [facility] FOR A FEW DAYS, SHE DID HAVE HYPERCAPNIA WHICH IMPROVED AFTER USE OF BIPAP. AT HOME JUST USING O2 2 L/MINUTE AT NIGHT AND PRN DURING THE DAYTIME. RESPIRATORY STATUS IS STABLE AND ALSO MENTAL STATUS HAS REMAINED STABLE. Code(s): J44.9 - Chronic obstructive pulmonary disease, unspecified Category: Medical Plan: CONTINUE TO USE BREZTRI 2 INHALATIONS B.I.D. IPRATROPIUM-ALBUTEROL SOLUTION IN THE NEBULIZER T.I.D.. ALBUTEROL HFA 2 PUFFS Q 6 HOURS P.R.N. (2) Respiratory failure with hypoxia and hypercapnia: Comment: IN ADDITION TO NOCTURNAL AND EXERCISE INDUCED HYPOXEMIA , SHE DOES HAVE HYPERCAPNIA C/W ACUTE ON CHRONIC RESPIRATORY FAILURE. I TOLD HER THAT USE OF NARCOTIC MED FOR PAIN CONTROL , CAN NOT CONTRIBUTE TO HYPERCAPNIA. SEEM TO BE UNDER CONTROL AT THIS TIME. Code(s): J96.91 - Respiratory failure, unspecified with hypoxia; J96.92 - Respiratory failure, unspecified with hypercapnia Category: Medical Plan: VENOUS BLOOD GAS STUDY ORDERED. PATIENT INSTRUCTED TO DO DEEP BREATHING EXERCISES WITH PURSED LIP TECHNIQUE OFTEN POSSIBLE. SHE DOES HAVE INCENTIVE SPIROMETRY DEVICE AT HOME AND ADVISED TO USE IT EVERY 2 HOURS WHILE AWAKE. ALSO CAUTIONED THAT SHE SHOULD NOT USE ACETAMINOPHEN WITH HYDROCODONE TOO OFTEN , BECAUSE IT WILL CONTRIBUTE TO CO2 RETENTION. Orders: Orders Venous Blood Gas Today J44.9 - Chronic obstructive pulmonary disease, unspecified, J96.91 - Respiratory failure, unspecified with hypoxia, J96.92 - Respiratory failure, unspecified with hypercapnia Coding Level of Care Code Est Pt Level 4 (26158) Diagnoses COPD (chronic obstructive pulmonary disease) J44.9 Respiratory failure with hypoxia and hypercapnia J96.91; J96.92
--- OUTSIDE RECORDS SUMMARY | 2024-08-08 11:46 | XMS_ITS | Clinical Summary ---
Author Organization [facility] Address [address] [place] [address] Care Team Providers Care Fire Lookout Name Role Phone Gustavo Dias MD Primary Care Provider [phone] Allergies Active Allergy Reactions Criticality Noted Date [...] Documents on File Type Date Recorded Patient Tripe Washer Expl anation MOLST 03/03/2024 6:25 AM 4 Care Teams Fire Lookout Relationship Specialty Start Date End Date Gustavo Dias MD [address] [place] [address] [phone] PCP - General Internal Medicine 03/01/24
--- OUTSIDE RECORDS SUMMARY | 2024-08-08 11:46 | XMS_ITS | Referral Summary ---
Author Organization [facility] Address [address] [place] [address] Care Team Providers Care Transportation Logistics Internship Name Role Phone Gustavo Dias MD Primary Care Provider [phone] Allergies Active Allergy Reactions Criticality Noted Date [...] Documents on File Type Date Recorded Patient Ornamental Plaster Sticker Eriberto BREAUX 03/03/2024 6:25 AM 4 Care Teams Transportation Logistics Internship Relationship Specialty Start Date End Date Gustavo Dias MD [address] [place] [address] [phone] PCP - General Internal Medicine 03/01/24
== END 2024-08-08 10:50 | disposition home or self-care (01) ==
LOC: HO.HPS 10:17
PROVIDERS: PCP Nurse Practitioner Family; Visit Provider Internal Medicine
DX: J44.9 Chronic obstructive pulmonary disease, unspecified (principal); J96.91 Respiratory failure, unspecified with hypoxia; J96.92 Respiratory failure, unspecified with hypercapnia
CPT/HCPCS: 99214

== ENCOUNTER → 2024-08-08 10:17 | Outpatient (BNVA) | payer OTHER, SELFPAY | PROVIDERS: PCP Nurse Practitioner Family; Visit Provider Internal Medicine | DX: J44.9 Chronic obstructive pulmonary disease, unspecified (principal); J96.91 Respiratory failure, unspecified with hypoxia; J96.92 Respiratory failure, unspecified with hypercapnia | CPT/HCPCS: 99212 ==

== ENCOUNTER 2024-08-14 07:21 | Outpatient (AMB) | payer OTHER, SELFPAY ==
--- OUTSIDE RECORDS SUMMARY | 2024-08-14 07:23 | XMS_ITS | Referral Summary ---
Author Organization [facility] Address [address] [place] [address] Care Team Providers Care Senior Sales Operations Analyst Name Role Phone Gustavo Dias MD Primary Care Provider [phone] Allergies Active Allergy Reactions Criticality Noted Date [...] on File Type Date Recorded Patient Environmental Health And Safety Leader Eriberto BREAUX 03/03/2024 6:25 AM 4 Care Teams Senior Sales Operations Analyst Relationship Specialty Start Date End Date Gustavo Dias MD [address] [place] [address] [phone] PCP - General Internal Medicine 03/01/24
--- NOTE | 2024-08-14 07:26 | A.OFFPC_ITS ---
Intake Visit Reasons: ER followup per Ezra Allergies lansoprazole [Prevacid] Allergy (Severe, Verified 08/14/24 07:28) anaphylaxis cyclobenzaprine [From Flexeril] Allergy (Intermediate, Verified 08/14/24 07:28) Rash Medication List - Last Reconciled 08/14/24 by Ezra Zuñiga, SUMMER SESSIONS DIRECTOR- acetaminophen 650 mg (2 x 325 mg) PO Q6H PRN 30 days albuterol sulfate 90 mcg/actuation (Ventolin HFA) 2 puffs inhalation Q6H PRN baclofen 10 mg PO BID PRN Breztri Aerosphere 160-9-4.8 mcg/actuation (dyrmbeygap-wfwvenny-cicifywpry) 2 inhalations inhalation BID NS clonidine HCl 0.1 mg PO TID 90 days docusate sodium 100 mg PO BID PRN empagliflozin (Jardiance) 10 mg PO DAILY 90 days fluticasone propionate 50 mcg/actuation 1 spray intranasal Q12H PRN furosemide 20 mg See Protocol PO DAILY gabapentin 600 mg PO TID 30 days guaifenesin ER (Mucinex) 600 mg PO BID hydrocodone-acetaminophen 5-325 mg 1 tab PO Q6H PRN ipratropium-albuterol 0.5 mg-3 mg(2.5 mg base)/3 mL 3 mL inhalation RQ4H WHILE AWAKE PRN nicotine (polacrilex) 4 mg buccal Q2H PRN trazodone 50 mg PO BEDTIME PRN varenicline tartrate (Chantix) 1 mg PO BID venlafaxine ER 150 mg PO DAILY walker Folding Front wheeled walker duration 99 days Tobacco use date assessed: 06/26/24 Dental Screening Dental Screen Date: 06/26/24 HPI ER followup per Ezra HPI Details History of Present Illness The patient is a 58-year-old female presenting with follow-up concerns regarding her right hip dislocations subsequent to a right total hip arthroplasty at the end of April 2024. She experiences multiple dislocations since, though each was successfully reduced, and currently feels fine. Discussion regarding potential revision surgery is ongoing though patient expresses reluctance at present. Her history of chronic obstructive pulmonary disease (COPD) is managed with Breztri Aerosphere, and she notes her rescue inhaler is missing. Additionally, she is being treated for chronic tobacco use with varenicline, showing improvement by reducing smoking to a few cigarettes daily. She is aware of potential side effects from the medication, which she denies experiencing (SI and/or viivid dreams) Review of Systems - Musculoskeletal: Reports right hip pro sthetic dislocations; currently feels fine - Respiratory: Reports history of chroni c obstructive pulmonary disease (COPD); reports missing rescue inhaler - Psychiatric: Denies suicidal ideation, denies homicidal ideation - General: Denies vivid dreams related t o medication use Plan Continuation of orthopedic follow-up regarding her right hip prosthesis is essential for monitoring, with revision surgery as a non-immediate option. For her COPD, I will issue a prescription for a rescue inhaler to maintain symptomatic control. Regular oversight by her communication instructor is advised for further symptom management. Her regimen with varenicline for smoking cessation will persist, given its current efficacy. She is informed of the potential side effects (including SI) and should report any notable changes. Discussion Notes I discussed the current management strategies for her hip dislocations, reiterating the role of continued orthopedic assessment. We reviewed her COPD management, including the addition of a rescue inhaler to her treatment. Regarding her chronic smoking, discussion included the benefits and risks of continued varenicline use, and I provided guidance on side effects to monitor, advising her to reach out if any significant adverse events occur. Follow-up plans were also discussed for her pulmonary care, stressing the importance of ongoing monitoring and adjustment of her therapeutic regimen. Patient Instructions - Follow up with orthopedic specialists as planned - Use albuterol inhaler as needed for [place] PD symptoms - Continue varenicline (Chantix) and con tact me if experiencing vivid dreams or mood changes - Check in regularly with your epoxy specialist - Limit smoking and work toward cessatio n - Start your new job as you feel comfort able, and monitor your hip function acc ordingly [facility] Medical History Respiratory failure with hypoxia and hypercapnia Pulmonary edema Resides in [facility] facility Heart failure with preserved ejection fraction Substance abuse Acute exacerbation of chronic obstructive pulmonary disease Lumbar spondylosis Trochanteric bursitis of right hip Obesity Nicotine dependence, cigarettes, uncomplicated History of sepsis Urinary frequency COPD (chronic obstructive pulmonary disease) Exercise hypoxemia Smoker Bilateral hip pain Dyslipidemia Lower back pain Anxiety associated with depression Somatic dysfunction of left sacroiliac joint Surgical History History of section Family History Father Substance use disorder Mother Substance use disorder Mental health disorder Maternal Grandmother Substance use disorder Mental health disorder Social History Household Members: Spouse Housing: House Housing Other:: currently @ [facility] for rehab Are you a primary healthcare sales representative to a significant other at home: No Do you presently have visiting nurse or other home services: No Unable to assess alcohol history related to: Unable to respond Alcohol intake: former Patient Tobacco Use Status: Current everyday Tobacco user Tobacco use type: Cigarette Cigarette Packs Per Day: 0.5 Cigarettes Per Day: 2 Years Smoked: 30 e-Cigarette/Vaping Use: Never Used Second Hand Smoke Exposure: No Substance Use Type: Crack/Cocaine service: No Current occupational status: employed Current occupation: [employer] Cognitive needs: No Hearing needs: No Vision needs: No Questionnaire Thrive Questionnaire Date Thrive assessed: 06/26/24 I am a: Patient What is your living situation today?: I have a place to live, but I am worried about losing it in the future Within the past 12 months, did the food you bought not last and you didn't have the money to get more?: Sometimes True Within the past 12 months, did you worry whether your food would run out before you got money to buy more?: Often true Do you have trouble paying for medicines?: Yes Do you have trouble getting transportation to medical appointments?: No Do you have trouble paying your heating and electricity bill?: Yes Do you have trouble taking care of your child, family member or friend?: No Do you have trouble with day-to-day activities such as bathing, preparing meals, shopping, managing finances, etc.?: I choose not to answer this question Are you currently unemployed and looking for a job?: No Are you interested in more education?: No THRIVE Score: 4 AUDIT C Alcohol Use Questionnaire (AUDIT-C) 3. How often do you have six or more drinks on one occasion?: Never Total Score: 0 DAI-7 AMB Questionnaire DAI-7 Date DAI - 7 assessed: 06/26/24 Source: Developed by Drs. Neel Lazaro, Marilee Stanley, Antonio Rodriguez and colleagues, with an educational willie from [employer]. Physical exam (Primary Care) Tobacco/Smoking Status: Tobacco use Status Tobacco use date assessed 06/26/24 06/26/24 09:12 Patient Tobacco Use Status Current everyday Tobacco 07/14/24 09:24 Tobacco use type Cigarette 07/09/24 00:28 e-Cigarette/Vaping Use Never Used 06/26/24 08:54 Thrive Assessment: Date of Thrive Assessment Date Thrive assessed 06/26/24 08/11/24 12:33 Telehealth Telehealth Telehealth Platform: [employer] Location of provider rendering services: practice address Location of patient: address on file Patient Identification confirmed using: Name, : Yes Telehealth method: video Patient verbally consented to treatment: Yes Patient verbally consented to billing insurance company: Yes Patient informed of any privacy concerns related to visit: Yes Minutes spent on Phone/Video with Pt.: 15 Coding Level of Care Code Tele Est Pt Level 3 (08565) Diagnoses Dislocation of prosthesis of right hip joint T84.020A COPD with exacerbation J44.1 Smoker F17.200 Assessment & Plan Assessment & Plan (1) Dislocation of prosthesis of right hip joint: Code(s): T84.020A - Dislocation of internal right hip prosthesis, initial encounter Category: Medical (2) COPD with exacerbation: Code(s): J44.1 - Chronic obstructive pulmonary disease with (acute) exacerbation Category: Medical (3) Smoker: Comment: Currently tolerating chantix Code(s): F17.200 - Nicotine dependence, unspecified, uncomplicated Category: Social Hx Plan . Medications: New albuterol sulfate 90 mcg/actuation (Ventolin HFA) 2 puffs inhalation Q6H PRN 8.5 grams 4RF shortness of breath or wheezing varenicline tartrate (Chantix) 1 mg PO BID 56 tabs 0RF
== END 2024-08-14 08:48 | disposition home or self-care (01) ==
LOC: HO.HMCC 07:21
PROVIDERS: Visit Provider Nurse Practitioner Family
DX: J44.1 Chronic obstructive pulmonary disease with (acute) exacerbation (principal); T84.020A Dislocation of internal right hip prosthesis, initial encounter; F17.200 Nicotine dependence, unspecified, uncomplicated

== ENCOUNTER → 2024-08-14 07:21 | Outpatient (BNVA) | payer OTHER, SELFPAY | PROVIDERS: Visit Provider Nurse Practitioner Family | DX: Z13.89 Encounter for screening for other disorder (principal) ==

== ENCOUNTER 2024-08-23 15:24 | Outpatient (AMB) | payer OTHER, SELFPAY ==
--- OUTSIDE RECORDS SUMMARY | 2024-08-23 15:26 | XMS_ITS | Referral Summary ---
Author Organization [facility] Address [address] [place] [address] Care Team Providers Care Management And Budget Analyst Name Role Phone Gustavo Dias MD Primary Care Provider [phone] Allergies Active Allergy Reactions Criticality Noted Date [...] Documents on File Type Date Recorded Patient Watch Repairer Apprentice Eriberto BREAUX 03/03/2024 6:25 AM 4 Care Teams Management And Budget Analyst Relationship Specialty Start Date End Date Gustavo Dias MD [address] [place] [address] [phone] PCP - General Internal Medicine 03/01/24
--- OUTSIDE RECORDS SUMMARY | 2024-08-23 15:26 | XMS_ITS | Clinical Summary ---
Author Organization [facility] Address [address] [place] [address] Care Team Providers Care Emergency Specialist Name Role Phone Gustavo Dias MD Primary Care Provider [phone] Allergies Active Allergy Reactions Criticality Noted Date [...] Documents on File Type Date Recorded Patient Motor And Controls Tester Expl anation MOLST 03/03/2024 6:25 AM 4 Care Teams Emergency Specialist Relationship Specialty Start Date End Date Gustavo Dias MD [address] [place] [address] [phone] PCP - General Internal Medicine 03/01/24
[2024-08-23 15:30] VITALS: BP 130/90; PULSE 110; O2SAT 93; BMI 38.5
--- NOTE | 2024-08-23 15:30 | A.OFFVIS_ITS ---
Vital Signs 08/23/24 15:30 Height 5 ft 1 in Weight 203 lb 14.841 oz BMI 38.5 BP 130/90 H Blood Pressure Location Lt brachial Position Sitting Pulse 110 H Pulse Source Pulse Oximeter Pulse Oximetry (%) 93 Oxygen Delivery Method Room Air Intake Visit Reasons: copd Intake Note: pt is here for sick visit for short of breath with exertion, also breztri will not be covered. no smoking for 2 weeks. shortness of breath for over 2 weeks Warp Hauler Required: No Allergies lansoprazole [Prevacid] Allergy (Severe, Verified 08/23/24 16:03) anaphylaxis cyclobenzaprine [From Flexeril] Allergy (Intermediate, Verified 08/23/24 16:03) Rash Medication List - Last Reconciled 08/23/24 by Ramon Avila MD acetaminophen 650 mg (2 x 325 mg) PO Q6H PRN 30 days albuterol sulfate 90 mcg/actuation (Ventolin HFA) 2 puffs inhalation Q6H PRN baclofen 10 mg PO BID PRN budesonide 0.5 mg (2 mL) inhalation BID 30 days clonidine HCl 0.1 mg PO TID 90 days docusate sodium 100 mg PO BID PRN empagliflozin (Jardiance) 10 mg PO DAILY 90 days fluticasone propionate 50 mcg/actuation 1 spray intranasal Q12H PRN furosemide 20 mg See Protocol PO DAILY gabapentin 600 mg PO TID 30 days guaifenesin ER (Mucinex) 600 mg PO BID hydrocodone-acetaminophen 5-325 mg 1 tab PO Q6H PRN ipratropium-albuterol 0.5 mg-3 mg(2.5 mg base)/3 mL 3 mL inhalation RQ4H WHILE AWAKE PRN nicotine (polacrilex) 4 mg buccal Q2H PRN prednisone 10 mg PO DAILY 30 days trazodone 50 mg PO BEDTIME PRN varenicline tartrate (Chantix) 1 mg PO BID venlafaxine ER 150 mg PO DAILY walker Folding Front wheeled walker duration 99 days Do you need a note to return to daycare/school/sports/work: No HPI HPI copd: 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 Patient was discharged home with stationary concentrator and she uses O2 2 L/minute at home when sleeping and p.r.n. during. The daytime She does not have a light-weight portable cylinder, and so she does not use O2 when walking around or doing any physical work. Her main complaint is that she has not been able to get Breztri due to very high wright ( not covered by insurance ) All she uses is DuoNeb updrafts 3 times a day. She is still getting short of breath on walking around , when she came to the office today the O2 sat was down to 74. However on sitting and resting the O2 sat came up to 94 within a minute. 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 Work even apply for alf She cites financial issues , and states that it is important for her to go back to work for some earnings. [facility] Medical History Respiratory failure with hypoxia and hypercapnia Pulmonary edema Resides in longterm facility Heart failure with preserved ejection fraction Substance abuse Acute exacerbation of chronic obstructive pulmonary disease Lumbar spondylosis Trochanteric bursitis of right hip Obesity Nicotine dependence, cigarettes, uncomplicated History of sepsis Urinary frequency COPD (chronic obstructive pulmonary disease) Exercise hypoxemia Smoker Bilateral hip pain Dyslipidemia Lower back pain Anxiety associated with depression Somatic dysfunction of left sacroiliac joint Surgical History History of section Family History Father Substance use disorder Mother Substance use disorder Mental health disorder Maternal Grandmother Substance use disorder Mental health disorder Social History Household Members: Spouse Housing: House Housing Other:: currently @ [facility] for rehab Are you a primary care companion to a significant other at home: No Do you presently have visiting nurse or other home services: No Unable to assess alcohol history related to: Unable to respond Alcohol intake: former Patient Tobacco Use Status: Former Tobacco user Tobacco use type: Cigarette Cigarette Packs Per Day: 0.5 Cigarettes Per Day: 2 Years Smoked: 30 e-Cigarette/Vaping Use: Never Used Second Hand Smoke Exposure: No Substance Use Type: Crack/Cocaine service: No Current occupational status: employed Current occupation: [employer] Cognitive needs: No Hearing needs: No Vision needs: No Review of Systems Const All systems reviewed & are unremarkable except as noted in HPI and below Eyes Reports no additional complaints ENT Reports no additional complaints Card Denies chest pain, Denies irregular heart rhythm and Reports dyspnea on exertion Resp Reports as per HPI, Reports dyspnea on exertion and Denies wheezing GI Reports no additional complaints Reports no additional complaints Musc Reports back pain, Reports myalgias and Reports arthralgias (Painful right hip and has difficulty in standing and walking) Skin/Breast Reports system reviewed and no additional complaints, except as documented Neuro Reports no additional complaints Psych Reports anxiety Endo Reports no additional complaints Aller/Immun Denies wheezing Physical Exam Vital Signs: Last Vital Signs Pulse 110 H 08/23/24 15:30 BP 130/90 H 08/23/24 15:30 Pulse Ox 93 08/23/24 15:30 Oxygen Delivery Method Room Air 08/23/24 15:30 BMI result Body Mass Index 38.5 Const General: comfortable, no acute distress, alert and awake Orientation/consciousness: patient oriented x3 HEENT Head: Yes normal to inspection General nose exam: No nasal polyps present and No nasal discharge present Face and sinus: Yes sinuses nontender Mouth: oropharynx normal (MUCOSA IS DRY AND SLIGHTLY REDDISH, NO EXUDATES) Throat: Yes posterior oropharynx normal Eyes General: appearance normal, both eyes and all related structures Neck Neck: Yes normal visual inspection, Yes no lymphadenopathy, Yes trachea midline and Yes no JVD Thyroid: Thyroid normal Chest Chest palpation & inspection: normal inspection of the chest, normal palpation of entire chest wall and no tenderness Resp Other: PERCUSSION NOTE IS RESONANT, BREATH SOUNDS ARE DISTANT BUT EQUAL ON BOTH SIDES. NO WHEEZES RHONCHI OR CREPITATIONS ARE HEARD . Cardio Palpation: normal PMI Rate: regular rate Rhythm: regular rhythm Heart sounds: no gallops and no murmurs Peripheral pulses: Peripheral pulses 2+ throughout GI Palpation (GI): Soft to palpation, nontender, No hepatosplenomegaly present and no masses Auscultation: normal bowel sounds Back/Spine/Pelvis Thoracic/Lumbar Spine: thoracic and lumbar spine normal to inspection Skin General skin exam: no rashes or lesions noted Neuro General: patient oriented x3 and no focal motor deficits Cranial nerves: Yes CN's II-XII intact bilaterally Extrem General: No normal to inspection (Patient is in wheelchair and not able to stand or walk due to severe pain. ), Yes no clubbing, cyanosis or edema and Yes no calf tenderness Psych Appearance: grossly normal and well kempt Speech and movement: Normal speech and movement present Assessment & Plan Assessment & Plan (1) COPD (chronic obstructive pulmonary disease): Comment: THIS PATIENT IS A KNOWN CASE OF ADVANCED CHRONIC OBSTRUCTIVE PULMONARY DISEASE. DEFINITELY RELATED TO HER LIFELONG SMOKING. RECENTLY HAS BEEN TREATED AT [facility] AND THEN AT [facility] FOR A FEW DAYS, SHE DID HAVE HYPERCAPNIA WHICH IMPROVED AFTER USE OF BIPAP. AT HOME JUST USING O2 2 L/MINUTE AT NIGHT AND PRN DURING THE DAYTIME. RESPIRATORY STATUS IS STABLE AND ALSO MENTAL STATUS HAS REMAINED STABLE. SHE DOES GET SHORT OF BREATH ON WALKING, OR DOING ANY PHYSICAL WORK. SHE DOES NOT HAVE A LIGHTWEIGHT PORTABLE UNIT, AND SHE IS NOT ABLE TO USE THE LARGE CYLINDER. ALSO HAS NOT GOTTEN BREZTRI SO THE TREATMENT OF COPD MAY NOT BE OPTIMIZED AT THIS TIME. Code(s): J44.9 - Chronic obstructive pulmonary disease, unspecified Category: Medical Plan: BECAUSE SHE IS VERY ANXIOUS TO GO BACK TO WORK, EVEN THOUGH SHE GETS HYPOXEMIC ON WALKING. WE HAD A LONG DISCUSSION. SHE IS ABSOLUTELY NOT GOING TO HAVE PORTABLE OXYGEN WHEN WORKING. I A.M. AFRAID THAT SHE MAY GO INTO RESPIRATORY FAILURE. WILL TRY TO OPTIMIZE HER PULMONARY STATUS WITH THE FOLLOWING : PREDNISONE 10 MG DAILY FOR THE TIME BEING. ADD BUDESONIDE 0.5 MG IN 2 MALE SOLUTION AND AT TO THE NEBULIZER TWICE A DAY. CONTINUE TO USE IPRATROPIUM-ALBUTEROL SOLUTION IN THE NEBULIZER Q 6 HOURS WHILE AWAKE. (2) Nicotine dependence, cigarettes, uncomplicated: Comment: (Current smoker - onset 23yo, 1ppd x 34yrs, 30pyh) STILL SMOKING 6 CIGARETTES A DAY. Code(s): F17.210 - Nicotine dependence, cigarettes, uncomplicated Category: Medical Plan: TALKED ABOUT SMOKING CESSATION AND SHE SHOULD STOP SMOKING COMPLETELY. (3) Respiratory failure with hypoxia and hypercapnia: Comment: IN ADDITION TO NOCTURNAL AND EXERCISE INDUCED HYPOXEMIA , SHE DOES HAVE HYPERCAPNIA C/W ACUTE ON CHRONIC RESPIRATORY FAILURE. I TOLD HER THAT USE OF NARCOTIC MED FOR PAIN CONTROL , CAN CONTRIBUTE TO HYPERCAPNIA., SO SHE SHOULD TRY NOT TO USE ANY NARCOTIC MED Code(s): J96.91 - Respiratory failure, unspecified with hypoxia; J96.92 - Respiratory failure, unspecified with hypercapnia Category: Medical Plan: VENOUS BLOOD GAS STUDY REPEATED. ADVISED TO DO DEEP BREATHING EXERCISES WITH PURSED LIP TECHNIQUE. USE O2 2 L/MINUTE AT NIGHT AND P.R.N. DURING THE DAYTIME. WILL NEED TO BE MONITORED FOR ANY WORSENING OF RESPIRATORY STATUS. SO I WILL SEE HER BACK IN 2 WEEKS Orders: Orders Venous Blood Gas 08/23/24 J96.91 - Respiratory failure, unspecified with hypoxia, J96.92 - Respiratory failure, unspecified with hypercapnia Medications: New budesonide 0.5 mg (2 mL) inhalation BID 120 mL 3RF copd ,severe 30 days prednisone 10 mg PO DAILY 30 tabs 1RF copd /resp. failure 30 days Coding Level of Care Code Est Pt Level 4 (20424) Diagnoses COPD (chronic obstructive pulmonary disease) J44.9 Nicotine dependence, cigarettes, uncomplicated F17.210 Respiratory failure with hypoxia and hypercapnia J96.91; J96.92
== END 2024-08-23 15:57 | disposition home or self-care (01) ==
LOC: HO.HPS 15:24
PROVIDERS: Visit Provider Internal Medicine
DX: J44.9 Chronic obstructive pulmonary disease, unspecified (principal); F17.210 Nicotine dependence, cigarettes, uncomplicated; J96.91 Respiratory failure, unspecified with hypoxia; J96.92 Respiratory failure, unspecified with hypercapnia
CPT/HCPCS: 99214

== ENCOUNTER → 2024-08-23 15:24 | Outpatient (BNVA) | payer OTHER, SELFPAY | PROVIDERS: Visit Provider Internal Medicine | DX: J44.9 Chronic obstructive pulmonary disease, unspecified (principal); J96.91 Respiratory failure, unspecified with hypoxia; J96.92 Respiratory failure, unspecified with hypercapnia; F17.210 Nicotine dependence, cigarettes, uncomplicated | CPT/HCPCS: 99212 ==

== ENCOUNTER 2024-08-24 23:09 | Emergency (ER) | payer OTHER, SELFPAY ==
--- NOTE | ~2024-08-24 | XR_ITS ---
CLINICAL HISTORY: r o dislocation, pain 3 view, pelvis and right hip Comparison: CR - XR HIP RT W PEL1V - 08/04/24 16:26 EDT Findings: There is superolateral dislocation of the femoral head component of the right hip prosthesis with respect to the right acetabular component. No acute fracture injury visualized. The left hip appears intact. IMPRESSION: 1. Right hip prosthesis in place with superolateral dislocation of the right femoral head component with respect to the right acetabular component. This document has been electronically signed by: Ryan Chin MD on 08/25/2024 00:33:58
--- NOTE | ~2024-08-24 | XR_ITS ---
CLINICAL HISTORY: post reduction 1 view, pelvis and right hip Comparison: CR - XR HIP RT W PEL1V - 08/25/24 00:04 EDT Findings: There is interval reduction in the previously demonstrated dislocation injury at the right hip prosthesis. Bony alignment appears anatomic on the current examination. No acute fracture identified. IMPRESSION: 1. Interval reduction in the previously demonstrated dislocation injury involving the right hip prosthesis. This document has been electronically signed by: Ryan Chin MD on 08/25/2024 02:16:44
[2024-08-24 23:13] VITALS: BP 155/88; PULSE 100; O2SAT 95
--- NOTE | 2024-08-24 23:26 | ECG_ITS ---
Test Reason : Moderate sedation Blood Pressure : */* mmHG Vent. Rate : 102 BPM Atrial Rate : 102 BPM P-R Int : 134 ms QRS Dur : 84 ms QT Int : 340 ms P-R-T Axes : * -21 106 degrees QTcB Int : 443 ms Sinus tachycardia Low voltage QRS Nonspecific T wave abnormality Abnormal ECG When compared with ECG of 23-Jul-2024 20:20, Nonspecific T wave abnormality, worse in Inferior leads Nonspecific T wave abnormality now evident in Lateral leads Referred By: Kimi Santiago Electronically Signed By: PAOLA TOWNSEND MD
--- NOTE | 2024-08-24 23:30 | ED_ITS ---
HPI - Extremity Injury (Lower) General Chief Complaint: Extremity Injury, Lower Stated Complaint: R hip melody, hx surgery on hip, 10/19pain Time Seen by Provider: 08/24/24 23:16 Source: patient and EMS Mode of arrival: EMS Limitations: no limitations History of Present Illness ED Provider: Dr. Kimi Santiago HPI Narrative: patient comes to the emergency room complaining of right hip pain. Patient states that earlier today, she went to use the restroom. When she sat up, her leg pivoted the wrong way and her right side of the hip got dislocated. Patient has a right total hip arthroplasty, this is the 4th time that the patient has a dislocation. Patient admits that she does not use her brace. Patient states that at this time she can not afford getting another surgery because she needs prove of being employed and receiving a paycheck in order to keep her current residence. Patient states that if she stops working at this time, she will lose her housing. Related Data Home Medications ?Medication ?Instructions ?Recorded ?Confirmed baclofen 10 mg tablet 10 mg PO BID PRN muscle spasms 07/09/24 08/14/24 docusate sodium 100 mg capsule 100 mg PO BID PRN Constipation 07/09/24 08/14/24 fluticasone propionate 50 1 spray intranasal Q12H PRN 07/09/24 08/14/24 mcg/actuation nasal Allergy Symptoms spray,suspension venlafaxine 150 mg 150 mg PO DAILY 07/09/24 08/14/24 capsule,extended release 24 hr Previous Rx's ?Medication ?Instructions ?Recorded walker #1 ea 03/30/24 acetaminophen 325 mg tablet 650 mg (2 x 325 mg) PO Q6H PRN 05/05/24 Pain, Mild 1-3,Fever,Headache 30 days #240 tabs clonidine HCl 0.1 mg tablet 0.1 mg PO TID 90 days #270 tabs 06/26/24 empagliflozin 10 mg tablet 10 mg PO DAILY 90 days #90 tabs 06/26/24 (Jardiance) furosemide 20 mg tablet 20 mg PO DAILY #30 tabs 06/26/24 gabapentin 600 mg tablet 600 mg PO TID 30 days #90 tabs 06/26/24 nicotine (polacrilex) 4 mg gum 4 mg buccal Q2H PRN nicotine 06/26/24 cravings #100 ea trazodone 50 mg tablet 50 mg PO BEDTIME PRN sleep #30 tabs 06/26/24 guaifenesin 600 mg tablet, 600 mg PO BID #14 tabs 07/14/24 extended release 12 hr (Mucinex) hydrocodone 5 mg-acetaminophen 325 1 tab PO Q6H PRN pain #8 tabs 08/04/ mg tablet albuterol sulfate 90 mcg/actuation 2 puff inhalation Q6H PRN 08/14/24 aerosol inhaler (Ventolin HFA) shortness of breath or wheezing #8.5 grams varenicline tartrate 1 mg tablet 1 mg PO BID #56 tabs 08/14/24 (Chantix) ipratropium 0.5 mg-albuterol 3 mg 3 ml inhalation RQ4H WHILE AWAKE 08/19/24 (2.5 mg base)/3 mL nebulization PRN shortness of breath or soln wheezing #90 mL budesonide 0.5 mg/2 mL suspension 0.5 mg (2 mL) inhalation BID copd 08/23/24 for nebulization ,severe 30 days #120 mL prednisone 10 mg tablet 10 mg PO DAILY copd /resp. failure 08/23/24 30 days #30 tabs Allergies Allergy/AdvReac Type Severity Reaction Status Date / Time lansoprazole [Prevacid] Allergy Severe anaphylaxis Verified 08/24/24 23:52 cyclobenzaprine Allergy Intermediate Rash Verified 08/24/24 23:52 [From Flexeril] Review of Systems Review of Systems: Constitutional : No Weight loss, No Fever, No Chills, No Night Sweats, No Fatigue, No Malaise ENT/Mouth : No Hearing loss, No Ear Pain, No Nasal Congestion, No Sinus Pain, No Hoarseness, No sore throat, No Rhinorrhea, No Swallowing Difficulty Eyes: No Eye Pain, No Swelling, No Redness, No Foreign Body, No Discharge, No Vision Changes Cardiovascular : No Chest Pain, No SOB, No Dyspnea on Exertion, No Orthopnea, No Edema, No Palpitations Respiratory : No Cough, No Sputum, No Wheezing, No Smoke Exposure, No Dyspnea Gastrointestinal : No Nausea, No Vomiting, No Diarrhea, No Constipation, No abdominal Pain, No Hematochezia, No Melena Genitourinary : no irregular bleeding, No Dysuria, No Urinary Frequency, No Hematuria, No Urinary Incontinence, No Urgency, No Flank Pain, No Urinary Flow Changes, No Hesitancy Musculoskeletal : Complaining of severe right-sided hip pain, No Myalgias, No Joint Swelling Skin : No Skin Lesions, No rash Neuro : No Weakness, No Numbness, No Paresthesias, No Loss of Consciousness, No Dizziness, No Headache Psych : No Anxiety/Panic, No Depression, No SI/HI/AH/VH, No Social Issues, Heme/Lymph: No Bruising, No Bleeding,No Lymphadenopathy Endocrine : No Polyuria, No Polydipsia, No Temperature Intolerance [facility] Past Medical History Medical History Respiratory failure with hypoxia and hypercapnia Pulmonary edema Resides in shelter facility Heart failure with preserved ejection fraction Substance abuse Acute exacerbation of chronic obstructive pulmonary disease Lumbar spondylosis Trochanteric bursitis of right hip Obesity Nicotine dependence, cigarettes, uncomplicated History of sepsis Urinary frequency COPD (chronic obstructive pulmonary disease) Exercise hypoxemia Smoker Bilateral hip pain Dyslipidemia Lower back pain Anxiety associated with depression Somatic dysfunction of left sacroiliac joint Surgical History History of section Family History Family History Father Substance use disorder Mother Substance use disorder Mental health disorder Maternal Grandmother Substance use disorder Mental health disorder Social History Social History Household Members: Spouse Housing: House Housing Other:: currently @ [facility] for rehab Are you a primary transition of care specialist to a significant other at home: No Do you presently have visiting nurse or other home services: No Unable to assess alcohol history related to: Unable to respond Alcohol intake: former Patient Tobacco Use Status: Former Tobacco user Tobacco use type: Cigarette Cigarette Packs Per Day: 0.5 Cigarettes Per Day: 2 Years Smoked: 30 e-Cigarette/Vaping Use: Never Used Second Hand Smoke Exposure: No Substance Use Type: Crack/Cocaine Advance Directives: Yes Advance Directives Information Provided: Yes Advance Directives on File: No Do you have a plan to hurt others: No Plan service: No Current occupational status: employed Current occupation: [employer] Cognitive needs: No Hearing needs: No Vision needs: No Physical Exam Vital Signs: Vital Signs: Last Vital Signs Temp 98.8 F 08/24/24 23:51 Pulse 108 H 08/24/24 23:51 Resp 16 08/24/24 23:51 BP 162/84 H 08/24/24 23:51 Pulse Ox 95 08/24/24 23:51 O2 Del Method Room Air 08/24/24 23:51 BMI result Body Mass Index 36.8 Const: Other: Appearance: Alert. Oriented X3. No acute distress. Eyes: Pupils equal, round and reactive to light. ENT: Pharynx normal. Neck: Normal inspection. Neck supple. No lymph nodes noted. No crepitus CVS: Normal heart rate and rhythm. Pulses normal. Normal S1 and S2 Respiratory: No respiratory distress. Breath sounds normal. No Wheezing. No rales Abdomen: Soft and nontender. No rigidity. No distention. Skin: Skin warm and dry. Normal skin color. Normal skin turgor. Extremities: No lower extremity edema. patient's right leg is shortened and externally rotated. Patient unable to move the right leg due to severe pain Neuro: Oriented X 3. No motor deficit. No sensory deficit. Moving all extremities. No slurred speech. CN 2 through 12 grossly intact Psych: calm, cooperative, normal affect Course Course Course Narrative: it is very likely the patient has another dislocation, the 4th time this time. Patient's x-rays pending. Last time that the patient ate was at 17:00, 6-1/2 hours ago. Patient is being medicated with IV Dilaudid while we wait for the dislocation confirmation with an x-ray discussed with the patient that we will use moderate sedation if the hip is actually dislocated. Patient agrees with plan. Medications Administered Discontinued Medications Generic Name Dose Route Start Last Admin Trade Name Freq PRN Reason Stop Dose Admin Hydromorphone HCl 1 mg 08/24/24 23:28 08/24/24 23:41 Hydromorphone Hcl 1 Mg/Ml Syringe IVPUSH 08/24/24 23:29 1 mg ONCE ONE Administration Protocol Medical Decision Making Medical Decision Making MDM Narrative: x-ray of the hip does show a dislocation. Patient was medicated with propofol. Last meal approximately 8 hours ago. Initially, patient was given 80 mg of propofol, patient was somnolent but still feeling pain. Moving quite a bit. Patient was not given 20 mg, no significant improvement. Then patient was given 50 mg more, total of 150 Mg of propofol.. Patient was somnolent. Reduction was attempted. X-ray was taken but the hip was not completely reduced. Patient started waking up. Patient was given 50 mg extra of propofol, now total of 200. Hip was successfully reduced. initially, Hawthorne Tee technique was attempted but unsuccessful. Then the Allis reduction technique was attempted, successful reduction achieved postreduction x-rays confirmed the reduction patient recovering uneventfully patient does not have a right who can take her home. We will try to help her get home either by ambulance or wait until the morning when somebody can pick her up. Differential Diagnosis Differential Diagnoses: The differential diagnosis associated with the presentation includes ( Hip fracture, hip dislocation) Procedures Orthopedic Joint Reduction Joint #1: Time Out Performed: Yes Side: right Joint Reduction Location: hip Analgesia: procedural sedation Post-reduction neuro exam: intact Post-reduction vascular: intact Post Reduction X-Ray Obtained: Yes Post Reduction X-Ray Results: reduced Splint Applied: No ( per patient's request, a splint was not applied) Patient Tolerated Procedure: well and no complications Procedural Sedation Indication: fracture/dislocation reduction Presedation Evaluation: right hip is externally rotated and shortened ASA Class: III Mallampati Class: III Time of Last PO Intake: 17:00 Preparation: cleaning professional applied, pulse oximeter, capnometry used, supplemental O2 applied, suction/airway equipment at bedside and IV secured IV Propofol dose (mg): 200 Patient Tolerated Procedure: well and no complications Complications: none Discharge Plan Discharge Clinical Impression: Hip dislocation, right Prescriptions: No Action (DME) walker [facility] See Rx Instructions .MEDSUPPLY Qty: 1 0RF Rx Instructions: Folding Front wheeled walker duration 99 days ipratropium-albuterol 0.5 mg-3 mg(2.5 mg base)/3 mL solution for nebulization 3 ml inhalation RQ4H WHILE AWAKE PRN (Reason: shortness of breath or wheezing) Qty: 90 0RF venlafaxine 150 mg capsule,extended release 24hr 150 mg PO DAILY baclofen 10 mg tablet 10 mg PO BID PRN (Reason: muscle spasms) docusate sodium 100 mg capsule 100 mg PO BID PRN (Reason: Constipation) fluticasone propionate 50 mcg/actuation spray,suspension 1 spray intranasal Q12H PRN (Reason: Allergy Symptoms) guaifenesin [Mucinex] 600 mg Tablet Extended Release 12hr 600 mg PO BID Qty: 14 0RF acetaminophen 325 mg Tablet 650 mg PO Q6H PRN (Reason: Pain, Mild 1-3,Fever,Headache) 30 Days Qty: 240 0RF hydrocodone-acetaminophen 5-325 mg tablet 1 tab PO Q6H PRN (Reason: pain) Qty: 8 0RF Rx Instructions: partial fill okay; Partial Fill upon patient request. albuterol sulfate [Ventolin HFA] 90 mcg/actuation HFA aerosol inhaler 2 puff inhalation Q6H PRN (Reason: shortness of breath or wheezing) Qty: 8.5 4RF varenicline tartrate [Chantix] 1 mg tablet 1 mg PO BID Qty: 56 0RF clonidine HCl 0.1 mg tablet 0.1 mg PO TID 90 Days Qty: 270 1RF Jardiance 10 mg tablet 10 mg PO DAILY 90 Days Qty: 90 0RF furosemide 20 mg tablet 20 mg PO DAILY Qty: 30 2RF Protocol: Hold for SBP< HOLD for SBP < : 90 gabapentin 600 mg tablet 600 mg PO TID 30 Days Qty: 90 0RF Rx Instructions: TAKE WITH 100 MG; TDD 700 MG TID trazodone 50 mg tablet 50 mg PO BEDTIME PRN (Reason: sleep) Qty: 30 3RF nicotine (polacrilex) 4 mg gum 4 mg buccal Q2H PRN (Reason: nicotine cravings) Qty: 100 0RF budesonide 0.5 mg/2 mL suspension for nebulization 0.5 mg inhalation BID 30 Days Qty: 120 3RF prednisone 10 mg tablet 10 mg PO DAILY 30 Days Qty: 30 1RF Print Language: Spanish
[2024-08-24] MEDS: HYDROmorphone HCl 1 MG/ML SYRINGE IVPUSH (23:41)
--- NOTE | 2024-08-24 23:46 | PC.NURSE ---
IV established, medicated per MAR. Off to XRay.
[2024-08-24 23:51] VITALS: BP 162/84; PULSE 108; RESP 16; TEMP 37.1; O2SAT 95; BMI 36.8
--- NOTE | 2024-08-25 01:27 | PC.NURSE ---
0100 time out staff present Dr. Pamela Nagel, and this expert medical writer 0100 HR 98 O2 99% 2L 19 163/89 80mg IVP propofol 0103 20mg propofol 0104 50mg ivp propofol 106 BP 113/80 100 HR O2 91 2L bumped up to 6 L 0108 98%6L 97HR 16 103/79 0110 96 HR 98& 6L 16 118/78 0114 112/80 [address] Santiago relocated hip 0116 XR confirmed 0117 111/86 HR 96 99% 3L
[2024-08-25 01:28] VITALS: BP 139/92; PULSE 99; RESP 15; TEMP 36.9; O2SAT 98
--- NOTE | 2024-08-25 01:34 | PC.NURSE ---
patient alert and oriented at this time maintaining O2 off oxygen
[2024-08-25] MEDS: propofoL 200 MG/20 ML VIAL IVPUSH (01:38)
[2024-08-25 02:00] VITALS: BP 111/86; PULSE 96; RESP 15; TEMP 36.3; O2SAT 99
[2024-08-25 03:04] VITALS: PULSE 108; RESP 18; O2SAT 88
[2024-08-25] MEDS: Albuterol Sulfate 2.5 MG, Albuterol/Iprat 2.5/0.5MG 3 ML 3 ML INHALE (03:04)
[2024-08-25 03:08] VITALS: BP 131/85; PULSE 98; RESP 16; TEMP 36.6; O2SAT 93
== END 2024-08-25 03:35 | disposition home or self-care (01) ==
PROVIDERS: Emergency Provider Emergency Medicine; PCP Nurse Practitioner Family
DX: M25.551 Pain in right hip (principal); Z96.641 Presence of right artificial hip joint
CPT/HCPCS: 27265; 73502; 93005; 94640; 96374; 96375; 99285; J1171; J2704

== ENCOUNTER → 2024-08-24 23:26 | Outpatient (BNV) | payer OTHER, SELFPAY | PROVIDERS: Emergency Provider Emergency Medicine; PCP Nurse Practitioner Family; Visit Provider Internal Medicine Cardiovascular Disease | DX: R00.0 Tachycardia, unspecified (principal) | CPT/HCPCS: 93010 ==

== ENCOUNTER → 2024-08-24 23:26 | Outpatient (BNV) | payer OTHER, SELFPAY | PROVIDERS: Emergency Provider Emergency Medicine; PCP Nurse Practitioner Family; Visit Provider Radiology Diagnostic Radiology | DX: S73.004D Unspecified dislocation of right hip, subsequent encounter (principal) | CPT/HCPCS: 73502 ==

== ENCOUNTER → 2024-08-25 00:49 | Outpatient (BNV) | payer OTHER, SELFPAY | PROVIDERS: Emergency Provider Emergency Medicine; PCP Nurse Practitioner Family; Visit Provider Radiology Diagnostic Radiology | DX: M25.551 Pain in right hip (principal) | CPT/HCPCS: 73502 ==

== ENCOUNTER 2024-09-07 13:51 | Outpatient (REF) | payer OTHER, SELFPAY ==
[2024-09-07 15:00] LABS: Venous Blood Gas Refer to POC result
[2024-09-07 15:01] LABS: VBG Base Excess 10.5 mmol/L; VBG HCO3 36 mmol/L (22-26); VBG pCO2 53 mmHg; VBG pH 7.44 (7.32-7.43); VBG pO2 56 mmHg
== END 2024-09-07 13:52 | disposition home or self-care (01) ==
LOC: HO.LAB 13:51
PROVIDERS: PCP Nurse Practitioner Family; Visit Provider Internal Medicine
DX: J96.91 Respiratory failure, unspecified with hypoxia (principal); J96.92 Respiratory failure, unspecified with hypercapnia; J44.9 Chronic obstructive pulmonary disease, unspecified; F17.210 Nicotine dependence, cigarettes, uncomplicated
CPT/HCPCS: 36415; 82803; 94618; 99212

== ENCOUNTER 2024-09-07 13:51 | Outpatient (AMB) | payer OTHER, SELFPAY ==
[2024-09-07 13:58] VITALS: BP 124/82; PULSE 101; O2SAT 93; BMI 39.2
--- NOTE | 2024-09-07 13:58 | MHC.OFFVIS ---
Vital Signs 09/07/24 13:58 Height 5 ft 1 in Weight 207 lb 3.752 oz BMI 39.2 BP 124/82 Blood Pressure Location Lt brachial Position Sitting Pulse 101 H Pulse Source Pulse Oximeter Pulse Oximetry (%) 93 Oxygen Delivery Method Room Air Intake Visit Reasons: COPD Intake Note: pt is here for follow up and feeling little better not great but still short of breath with exertion. Insert Cutter Required: No Allergies lansoprazole [Prevacid] Allergy (Severe, Verified 09/07/24 14:11) anaphylaxis cyclobenzaprine [From Flexeril] Allergy (Intermediate, Verified 09/07/24 14:11) Rash Medication List - Last Reconciled 09/07/24 by Ramon Avila MD acetaminophen 650 mg (2 x 325 mg) PO Q6H PRN 30 days albuterol sulfate 90 mcg/actuation (Ventolin HFA) 2 puffs inhalation Q6H PRN baclofen 10 mg PO BID PRN 30 days budesonide 0.5 mg (2 mL) inhalation BID 30 days clonidine HCl 0.1 mg PO TID 90 days dapagliflozin propanediol (Farxiga) 10 mg PO DAILY docusate sodium 100 mg PO BID PRN fluticasone propionate 50 mcg/actuation 1 spray intranasal Q12H PRN furosemide 20 mg See Protocol PO DAILY gabapentin 600 mg PO TID 30 days guaifenesin ER (Mucinex) 600 mg PO BID hydrocodone-acetaminophen 5-325 mg 1 tab PO Q6H PRN ipratropium-albuterol 0.5 mg-3 mg(2.5 mg base)/3 mL 3 mL inhalation RQ4H WHILE AWAKE PRN nicotine (polacrilex) 4 mg buccal Q2H PRN prednisone 10 mg PO DAILY 30 days trazodone 50 mg PO BEDTIME PRN varenicline tartrate (Chantix) 1 mg PO BID venlafaxine ER 150 mg PO BID walker Folding Front wheeled walker duration 99 days Do you need a note to return to daycare/school/sports/work: No HPI HPI COPD: Details: 59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 FOR FOLLOW-UP AFTER 2 WEEKS CLAIMS THAT SHE IS FEELING SOMEWHAT BETTER BUT STILL GETS TIRED AND SHORT OF BREATH EASILY. SHE IS BACK TO WORK ALREADY [employer], CAN MANAGE, MY WALKING SLOW. WHEN AT HOME AND SLEEP SHE DOES USE THE OXYGEN. AND SHE DOES USE P.R.N. DURING THE DAYTIME WITH STATIONARY CONCENTRATOR. SHE DOES NOT HAVE LIGHTWEIGHT PORTABLE UNIT WHICH SHE WANTS TO GET. BY TAKING PREDNISONE 10 MG A DAY AND USING BUDESONIDE IN THE NEBULIZER TWICE A DAY SHE IS DEFINITELY BENEFITING. SHE IS NOT SMOKING ANYMORE. FORMERLY [facility] Medical History Respiratory failure with hypoxia and hypercapnia Pulmonary edema Resides in assisted facility Heart failure with preserved ejection fraction Substance abuse Acute exacerbation of chronic obstructive pulmonary disease Lumbar spondylosis Trochanteric bursitis of right hip Obesity Nicotine dependence, cigarettes, uncomplicated History of sepsis Urinary frequency COPD (chronic obstructive pulmonary disease) Exercise hypoxemia Smoker Bilateral hip pain Dyslipidemia Lower back pain Anxiety associated with depression Somatic dysfunction of left sacroiliac joint Surgical History History of section Family History Father Substance use disorder Mother Substance use disorder Mental health disorder Maternal Grandmother Substance use disorder Mental health disorder Social History Household Members: Spouse Housing: House Housing Other:: currently @ [facility] for rehab Are you a primary health care marketing manager to a significant other at home: No Do you presently have visiting nurse or other home services: No Unable to assess alcohol history related to: Unable to respond Alcohol intake: former Patient Tobacco Use Status: Former Tobacco user Tobacco use type: Cigarette Cigarette Packs Per Day: 0.5 Cigarettes Per Day: 2 Years Smoked: 30 e-Cigarette/Vaping Use: Never Used Second Hand Smoke Exposure: No Substance Use Type: Crack/Cocaine service: No Current occupational status: employed Current occupation: [employer] Cognitive needs: No Hearing needs: No Vision needs: No Review of Systems Const All systems reviewed & are unremarkable except as noted in HPI and below Eyes Reports no additional complaints ENT Reports no additional complaints Card Denies chest pain, Denies irregular heart rhythm and Reports dyspnea on exertion Resp Reports as per HPI, Reports dyspnea on exertion and Denies wheezing GI Reports no additional complaints Reports no additional complaints Musc Reports back pain, Reports myalgias and Reports arthralgias (Painful right hip and has difficulty in standing and walking) Skin/Breast Reports system reviewed and no additional complaints, except as documented Neuro Reports no additional complaints Psych Reports anxiety Endo Reports no additional complaints Aller/Immun Denies wheezing Physical Exam Vital Signs: Last Vital Signs Pulse 101 H 09/07/24 13:58 BP 124/82 09/07/24 13:58 Pulse Ox 93 09/07/24 13:58 Oxygen Delivery Method Room Air 09/07/24 13:58 BMI result Body Mass Index 39.2 Const General: comfortable, no acute distress, alert and awake Orientation/consciousness: patient oriented x3 HEENT Head: Yes normal to inspection General nose exam: No nasal polyps present and No nasal discharge present Face and sinus: Yes sinuses nontender Mouth: oropharynx normal (MUCOSA IS DRY AND SLIGHTLY REDDISH, NO EXUDATES) Throat: Yes posterior oropharynx normal Eyes General: appearance normal, both eyes and all related structures Neck Neck: Yes normal visual inspection, Yes no lymphadenopathy, Yes trachea midline and Yes no JVD Thyroid: Thyroid normal Chest Chest palpation & inspection: normal inspection of the chest, normal palpation of entire chest wall and no tenderness Resp Other: PERCUSSION NOTE IS RESONANT, BREATH SOUNDS ARE DISTANT BUT EQUAL ON BOTH SIDES. NO WHEEZES RHONCHI OR CREPITATIONS ARE HEARD . Cardio Palpation: normal PMI Rate: regular rate Rhythm: regular rhythm Heart sounds: no gallops and no murmurs Peripheral pulses: Peripheral pulses 2+ throughout GI Palpation (GI): Soft to palpation, nontender, No hepatosplenomegaly present and no masses Auscultation: normal bowel sounds Back/Spine/Pelvis Thoracic/Lumbar Spine: thoracic and lumbar spine normal to inspection Skin General skin exam: no rashes or lesions noted Neuro General: patient oriented x3 and no focal motor deficits Cranial nerves: Yes CN's II-XII intact bilaterally Extrem General: No normal to inspection (Patient is in wheelchair and not able to stand or walk due to severe pain. ), Yes no clubbing, cyanosis or edema and Yes no calf tenderness Psych Appearance: grossly normal and well kempt Speech and movement: Normal speech and movement present Office Procedures 6 Minute Walk Time:: 14:15 SPO2 % at rest: 96 Pulse at rest: 94 SPO2 % during excercise: 87 Pulse during excercise: 118 SPO2 % after excercise: 96 Pulse after excercise: 112 Distance in yards walked: 150 Michael Score: 8 Performance Observations:: Patient walked unassisted on level ground at a moderate pace. After approx. 1.5 minutes desaturated to 87% and pulse of 100. O2 applied via poc at setting 2. Recovered to 93% with pulse of 114. Continued walk and after 2 minutes desaturated to 87% pulse of 118. O2 titrated up to setting 3 recovered to 93% pulse 112. Patient completed walk maintaining O2 saturation of 92-93% Patient would qualify and benefit from portable oxygen via poc at setting 3 for exertion. Patient tires easily and gets very short of breath with exertion. [id number] - 6 Minute Walk Results Reviewed Results Reviewed: 6 MINUTES WALK TEST: SHE DOES DESATURATE ON MINIMAL WALKING, SHE DID QUALIFY FOR CONSERVING UNIT , AT 3 L/MINUTE VBGs PH 7.44, PCO2 53 HCO3 36 Assessment & Plan Assessment & Plan (1) COPD (chronic obstructive pulmonary disease): Comment: THIS PATIENT IS A KNOWN CASE OF ADVANCED CHRONIC OBSTRUCTIVE PULMONARY DISEASE. DEFINITELY RELATED TO HER LIFELONG SMOKING. RECENTLY HAS BEEN TREATED AT [facility] AND THEN AT [facility] FOR A FEW DAYS, SHE DID HAVE HYPERCAPNIA WHICH IMPROVED AFTER USE OF BIPAP. AT HOME JUST USING O2 2 L/MINUTE AT NIGHT AND PRN DURING THE DAYTIME. RESPIRATORY STATUS IS STABLE AND ALSO MENTAL STATUS HAS REMAINED STABLE. 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 SHE DOES NOT HAVE A LIGHTWEIGHT PORTABLE UNIT, AND SHE IS NOT ABLE TO USE THE LARGE CYLINDER. Code(s): J44.9 - Chronic obstructive pulmonary disease, unspecified Category: Medical Plan: PER 6 MINUTES WALK TEST SHE DOES QUALIFY FOR O2 CONSERVING UNIT. SO WE WILL ORDER A POC FOR HER CONTINUE THE PRESENT REGIMEN . BUT REDUCE PREDNISONE TO 5 MG A DAY (2) Respiratory failure with hypoxia and hypercapnia: Comment: IN ADDITION TO NOCTURNAL AND EXERCISE INDUCED HYPOXEMIA , SHE DOES HAVE HYPERCAPNIA C/W ACUTE ON CHRONIC RESPIRATORY FAILURE. CLINICALLY IT SEEMS TO HAVE IMPROVED. VENOUS BLOOD GAS, PCO2 53,, BICARB 36 Code(s): J96.91 - Respiratory failure, unspecified with hypoxia; J96.92 - Respiratory failure, unspecified with hypercapnia Category: Medical Plan: POC IS BEING ORDERED AND SHE IS INSTRUCTED TO USE 3 L/MINUTE WITH EVERY PHYSICAL ACTIVITY I AM ALSO GOING TO START HER ON DIAMOX 250 MG DAILY (3) Nicotine dependence, cigarettes, uncomplicated: Comment: (Current smoker - onset 23yo, 1ppd x 34yrs, 30pyh) STILL SMOKING 6 CIGARETTES A DAY, SHE IS NOW ON CHANTIX 1 MG B.I.D., HAS BEEN ABLE TO QUIT SMOKING COMPLETELY, . BUT IT REMAINS TO BE SEEN Code(s): F17.210 - Nicotine dependence, cigarettes, uncomplicated Category: Medical Plan: IT IS ABSOLUTELY IMPORTANT THAT SHE SHOULD NOT SMOKE AT ALL . Orders: Orders AMB 6 minute walk Today J44.9 - Chronic obstructive pulmonary disease, unspecified, J96.91 - Respiratory failure, unspecified with hypoxia, J96.92 - Respiratory failure, unspecified with hypercapnia Venous Blood Gas Today J44.9 - Chronic obstructive pulmonary disease, unspecified, J96.91 - Respiratory failure, unspecified with hypoxia, J96.92 - Respiratory failure, unspecified with hypercapnia Medications: New acetazolamide 250 mg PO DAILY 30 days 30 tabs 3RF RESPIRATORY FAILURE Coding Level of Care Code Est Pt Level 4 (67959) Diagnoses COPD (chronic obstructive pulmonary disease) J44.9 Respiratory failure with hypoxia and hypercapnia J96.91; J96.92 Nicotine dependence, cigarettes, uncomplicated F17.210 CPT Codes Coding ([id number])
--- OUTSIDE RECORDS SUMMARY | 2024-09-07 13:59 | XMS_ITS | Clinical Summary ---
Author Organization [facility] Address [address] [place] [address] Care Team Providers Care Induction Brazer Name Role Phone Gustavo Dias MD Primary Care Provider [phone] Allergies Active Allergy Reactions Criticality Noted Date [...] Documents on File Type Date Recorded Patient Last Cleaner Expl anation MOLST 03/03/2024 6:25 AM 4 Care Teams Induction Brazer Relationship Specialty Start Date End Date Gustavo Dias MD [address] [place] [id number] PCP - General Internal Medicine 03/01/24
[2024-09-07 14:50] VITALS: PULSE 94; O2SAT 96
== END 2024-09-07 15:30 | disposition home or self-care (01) ==
LOC: HO.HPS 13:51
PROVIDERS: PCP Nurse Practitioner Family; Visit Provider Internal Medicine
DX: J44.9 Chronic obstructive pulmonary disease, unspecified (principal); J96.91 Respiratory failure, unspecified with hypoxia; J96.92 Respiratory failure, unspecified with hypercapnia; F17.210 Nicotine dependence, cigarettes, uncomplicated
CPT/HCPCS: 94618; 99214

== ENCOUNTER 2024-09-20 11:23 | Day surgery (SDC) | payer OTHER, SELFPAY ==
[2024-09-20] VITALS (17 sets, daily range): BP systolic 92–163; BP diastolic 50–104; PULSE 96–107; RESP 16–22; TEMP 36.6–36.8; O2SAT 91–955; BMI 37.9
--- NOTE | ~2024-09-20 | XR_ITS ---
EXAMINATION: XR PELVIS 1-2 VIEWS HISTORY: dislocated right hip COMPARISON: Comparison is made with the prior examination performed earlier in the day. FINDINGS: A single AP portable view of the pelvis performed at 7:41 AM is submitted. There is been relocation of the previously seen dislocation of the femoral stem component of a right total hip arthroplasty. No fracture is seen. XR/XR pelvis 1-2V IMPRESSION: Interval relocation of the previously seen dislocation of the femoral stem component of a right total hip arthroplasty. Electronically signed by: Neel Calderón MD 09/21/2024 08:01 AM EDT
--- NOTE | ~2024-09-20 | XR_ITS ---
CLINICAL HISTORY: SOB hypoxia 1 view chest x-ray Comparison: CR - XR CHEST 1V - 07/23/24 20:05 EDT Findings: No consolidation or effusion. Normal size heart. No acute fracture. IMPRESSION: 1. Low lung volume, otherwise unremarkable. This document has been electronically signed by: Tanya Frias MD on 09/20/2024 23:33:26
--- NOTE | ~2024-09-20 | XR_ITS ---
EXAMINATION: XR HIP 2 OR MORE VIEWS RIGHT HISTORY: hip pain COMPARISON: Comparison is made with the prior examination dated 08/25/2024. FINDINGS: A single AP view of the pelvis and two views of the right hip are submitted. The patient is again noted to be status post right total hip arthroplasty. There is superior dislocation of the femoral stem component. No fracture is seen. There is degenerative disc disease of the spine. The soft tissues are unremarkable. XR/XR hip RT min 2V IMPRESSION: Superior dislocation of the femoral stem component of a right total hip arthroplasty. Electronically signed by: Neel Calderón MD 09/20/2024 02:41 PM EDT
--- OUTSIDE RECORDS SUMMARY | 2024-09-20 13:37 | XMS_ITS | Clinical Summary ---
Author Organization [facility] Address [address] [place] [address] Care Team Providers Care Dust Collector Attendant Name Role Phone Gustavo Dias MD Primary Care Provider [phone] Allergies Active Allergy Reactions Criticality Noted Date [...] Documents on File Type Date Recorded Patient Infant Teacher Expl anation MOLST/POLST 03/03/2024 6:25 AM 4 Care Teams Dust Collector Attendant Relationship Specialty Start Date End Date Gustavo Dias MD [address] [place] [address] [phone] PCP - General Internal Medicine 03/01/24
--- NOTE | 2024-09-20 13:45 | ED_ITS ---
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 Subsequently felt a pop in her right hip. Patient had a hip replacement done in April. Complaining of pain and deformity to that hip after the pop. There was no trauma. Patient came to the ED for further evaluation. Not on blood thinners. Related Data Home Medications ?Medication ?Instructions ?Recorded ?Confirmed docusate sodium 100 mg capsule 100 mg PO BID PRN Constipation 07/09/24 09/07/24 fluticasone propionate 50 1 spray intranasal Q12H PRN 07/09/24 09/07/24 mcg/actuation nasal Allergy Symptoms spray,suspension Previous Rx's ?Medication ?Instructions ?Recorded walker #1 ea 03/30/24 acetaminophen 325 mg tablet 650 mg (2 x 325 mg) PO Q6H PRN 05/05/24 Pain, Mild 1-3,Fever,Headache 30 days #240 tabs clonidine HCl 0.1 mg tablet 0.1 mg PO TID 90 days #270 tabs 06/26/24 nicotine (polacrilex) 4 mg gum 4 mg buccal Q2H PRN nicotine 06/26/24 cravings #100 ea trazodone 50 mg tablet 50 mg PO BEDTIME PRN sleep #30 tabs 06/26/24 guaifenesin 600 mg tablet, 600 mg PO BID #14 tabs 07/14/24 extended release 12 hr (Mucinex) hydrocodone 5 mg-acetaminophen 325 1 tab PO Q6H PRN pain #8 tabs 08/04/ mg tablet albuterol sulfate 90 mcg/actuation 2 puff inhalation Q6H PRN 08/14/24 aerosol inhaler (Ventolin HFA) shortness of breath or wheezing #8.5 grams ipratropium 0.5 mg-albuterol 3 mg 3 ml inhalation RQ4H WHILE AWAKE 08/19/24 (2.5 mg base)/3 mL nebulization PRN shortness of breath or soln wheezing #90 mL budesonide 0.5 mg/2 mL suspension 0.5 mg (2 mL) inhalation BID copd 08/23/24 for nebulization ,severe 30 days #120 mL prednisone 10 mg tablet 10 mg PO DAILY copd /resp. failure 08/23/24 30 days #30 tabs baclofen 10 mg tablet 10 mg PO BID PRN muscle spasms 30 08/26/24 days #60 tabs dapagliflozin propanediol 10 mg 10 mg PO DAILY #90 tabs 08/26/24 tablet (Farxiga) furosemide 20 mg tablet 20 mg PO DAILY #30 tabs 08/26/24 gabapentin 600 mg tablet 600 mg PO TID 30 days #90 tabs 08/26/24 venlafaxine 150 mg 150 mg PO BID #180 caps 08/26/24 capsule,extended release 24 hr acetazolamide 250 mg tablet 250 mg PO DAILY RESPIRATORY 09/07/24 FAILURE 30 days #30 tabs varenicline tartrate 1 mg tablet 1 mg PO BID #56 tabs 09/10/24 (Chantix) Allergies Allergy/AdvReac Type Severity Reaction Status Date / Time lansoprazole [Prevacid] Allergy Severe anaphylaxis Verified 09/20/24 11:40 cyclobenzaprine Allergy Intermediate Rash Verified 09/20/24 11:40 [From Flexeril] Review of Systems 2 Review of Systems: Positive hip pain on the right Yes all other systems are reviewed and are negative [facility] Past Medical History Attestation statement: The following information was validated with the patient. Medical History Respiratory failure with hypoxia and hypercapnia Pulmonary edema Resides in half-way facility Heart failure with preserved ejection fraction Substance abuse Acute exacerbation of chronic obstructive pulmonary disease Lumbar spondylosis Trochanteric bursitis of right hip Obesity Nicotine dependence, cigarettes, uncomplicated History of sepsis Urinary frequency COPD (chronic obstructive pulmonary disease) Exercise hypoxemia Smoker Bilateral hip pain Dyslipidemia Lower back pain Anxiety associated with depression Somatic dysfunction of left sacroiliac joint Surgical History History of section Family History Family History Father Substance use disorder Mother Substance use disorder Mental health disorder Maternal Grandmother Substance use disorder Mental health disorder Social History Social History Household Members: Spouse Housing: House Housing Other:: currently @ [facility] for rehab Are you a primary family day care provider to a significant other at home: No Do you presently have visiting nurse or other home services: No Unable to assess alcohol history related to: Unable to respond Alcohol intake: former Patient Tobacco Use Status: Former Tobacco user Tobacco use type: Cigarette Cigarette Packs Per Day: 0.5 Cigarettes Per Day: 2 Years Smoked: 30 e-Cigarette/Vaping Use: Never Used Second Hand Smoke Exposure: No Substance Use Type: Crack/Cocaine service: No Current occupational status: employed Current occupation: [employer] Cognitive needs: No Hearing needs: No Vision needs: No Physical Exam ED Vital Signs: Vital Signs - 24 hr 09/20/24 11:39 09/20/24 14:00 09/20/24 15:56 Temperature 97.9 F 98.3 F 98 F Pulse Rate 96 107 H 107 H Respiratory Rate 20 20 19 Blood Pressure 132/82 112/82 92/50 L Pulse Oximetry 91 L 91 L 96 Oxygen Delivery Method Room Air Room Air 09/20/24 16:17 09/20/24 16:20 09/20/24 16:23 Temperature Pulse Rate 102 H 105 H 105 H Respiratory Rate 22 H 19 19 Blood Pressure 163/81 H 128/98 H 119/78 Pulse Oximetry 955 H 96 95 Oxygen Delivery Method 09/20/24 16:29 09/20/24 16:31 09/20/24 16:36 Temperature 98.1 F 98.1 F Pulse Rate 102 H 100 Respiratory Rate 20 20 Blood Pressure 97/60 97/70 Pulse Oximetry 96 96 Oxygen Delivery Method 09/20/24 16:38 09/20/24 16:40 09/20/24 16:44 Temperature Pulse Rate 100 102 H 102 H Respiratory Rate 19 20 19 Blood Pressure 102/77 100/68 105/73 Pulse Oximetry 97 96 97 Oxygen Delivery Method 09/20/24 16:50 09/20/24 16:58 Temperature Pulse Rate 103 H 100 Respiratory Rate 20 19 Blood Pressure 110/65 112/72 Pulse Oximetry 96 93 Oxygen Delivery Method Room Air BMI result Body Mass Index 37.9 Appearance: Alert. Oriented X3. No acute distress. Eyes: Pupils equal, round and reactive to light. ENT: Pharynx normal. Neck: Normal inspection. Neck supple. No lymph nodes noted. No crepitus CVS: Normal heart rate and rhythm. Pulses normal. Normal S1 and S2 Respiratory: No respiratory distress. Breath sounds normal. No Wheezing. No rales Abdomen: Soft and nontender. No rigidity. No distention. good BS x4 Skin: Skin warm and dry. Normal skin color. Normal skin turgor. Extremities: No lower extremity edema. Right hip seems to be externally rotated and shortened. There is good distal pulses noted. Minimal movement noted at the hip. There is good sensation throughout the lower extremity. There is no pain on palpation of the right knee or right ankle. There is good movement of the right toes. Skin is intact. Neuro: Oriented X 3. No motor deficit. No sensory deficit. Moving all extermities. No slurred speech Medications Administered Discontinued Medications Generic Name Dose Route Start Last Admin Trade Name Amairani PRN Reason Stop Dose Admin Propofol 200 mg 09/20/24 15:16 09/20/24 16:07 Propofol 200 Mg/20 Ml Vial IVPUSH 09/20/24 15:17 200 mg ONCE ONE Administration Propofol 75 mg 09/20/24 17:08 09/20/24 16:40 Propofol 200 Mg/20 Ml Vial IVPUSH 09/20/24 17:09 75 mg ONCE ONE Administration Procedures Orthopedic Joint Reduction Right hip: Time Out Performed: Yes Side: right Joint Reduction Location: hip Analgesia: procedural sedation Local Anesthesia: other anesthetic (Propofol 10 milligrams/mL) Amount of anesthesic used (mL): 27.5 Shoulder Technique Used (if applicable): other (Kept in Tee technique, inline traction) Additional Comments: Patient tolerated the procedure well but we were unable to reduce the hip. Procedural Sedation ASA Class: II Mallampati Class: II Time of Last PO Intake: 09:00 IV Propofol dose (mg): 275 Patient Tolerated Procedure: well Complications: none Interventions: oxygen applied Medical Decision Making Medical Decision Making MDM Narrative: Patient is status post hip surgery in April. Presented today with turning and then having pain to the hip. X-ray shows an anterior hip dislocation by my interpretation. Risk and benefit of moderate sedation was explained. Including risk of over-sedation, fracture, neurovascular damage. patient agreed.. Patient has a history of COPD. History of having low oxygenation baseline O2 sat is about 90%. We attempted moderate sedation and reduction using Captain Tee technique and in-line traction. Minimal effect. Dr. Sweeney happened to be near the emergency department. He given an attempt. [place] the sedation it was inadequate. Unable to get the patient to relax enough to get the hip and. He elected to take the patient to the OR. Patient recovered nicely is awake alert tapping on the phone right now. No airway issues. Currently awaiting OR Differential Diagnosis Differential Diagnoses: The differential diagnosis associated with the presentation includes Admission/Observation Consideration of admission/observation: Escalation of care including admission/observation considered Consult Healthcare Provider Management of the patient was discussed with: Business Enterprise Officer (Orthopedics) Lab Data MDM Lab Attestation statement: I reviewed the patient's lab results. 09/20/24 14:06 09/20/24 14:06 Labs: Lab Results 09/20/24 Range/Units 14:06 WBC 10.6 (4.8-10.8) X10*3/uL RBC 5.03 D (4.20-5.50) X10*6/uL Hgb 13.9 D (12.0-16.0) g/dl Hct 44.5 D (37.0-47.0) % MCV 88.5 (80.0-98.0) fL MCH 27.6 (27.0-33.0) pg MCHC 31.2 (31.0-35.0) g/dl RDW 19.9 H (11.0-16.0) % Plt Count 303 (160-400) X10*3/uL MPV 9.2 L (9.4-12.3) fL Immature Gran % (Auto) 0.7 H (0.0-0.4) % Neut % (Auto) 91.3 H (45-73) % Lymph % (Auto) 5.5 L (20-40) % [place] % (Auto) 1.9 L (2-11) % Eos % (Auto) 0.3 (0-4) % Baso % (Auto) 0.3 (0-2) % Lymph # (Auto) 0.6 L (1.2-4.9) X10*3/uL [place] # (Auto) 0.2 (0.1-1.2) X10*3/uL Eos # (Auto) 0.0 (0.0-0.4) X10*3/uL Baso # (Auto) 0.0 (0.0-0.2) X10*3/uL Abs Immat Gran (auto) 0.07 H (0.00-0.03) X10*3/uL Absolute Neuts (auto) 9.7 H (2.0-8.3) x10*3/uL Absolute Nucleated RBC 0.000 (0.0-0.012) X10*3/uL Nucleated RBC % (auto) 0.0 (0.0-0.2) /100WBC Smear Tech's Comments VERIFIED Sodium 142 (135-145) mmol/L Potassium 4.1 (3.3-5.1) mmol/L Chloride 106 (96-108) mmol/L Carbon Dioxide 29 (22-29) mmol/L Anion Gap 11 L (12-20) BUN 17 H (9-16) mg/dL Creatinine 0.58 (0.5-1.4) mg/dL Estim Creat Clear Calc 107.3 Estimated GFR > 60 Random Glucose 114 (60-115) mg/dL Calcium 9.5 D (8.4-10.2) mg/dL Independent Interpretation I performed an independent interpretation of an: Plain X-Ray (Hip dislocation) Radiology Impression Discussion of test interpretation with radiology: I have reviewed the radiologist's reading. External Record Review External record reviewed: Inpatient record Chronic Conditions Hip replacement Social Determinants Patient?s care significantly limited by Social Determinants of Health including: Problems related to primary support group Discharge Plan Discharge Clinical Impression: Dislocation, hip Prescriptions: No Action (DME) walker Misc See Rx Instructions .MEDSUPPLY Qty: 1 0RF Rx Instructions: Folding Front wheeled walker duration 99 days ipratropium-albuterol 0.5 mg-3 mg(2.5 mg base)/3 mL solution for nebulization 3 ml inhalation RQ4H WHILE AWAKE PRN (Reason: shortness of breath or wheezing) Qty: 90 0RF dapagliflozin propanediol [Farxiga] 10 mg tablet 10 mg PO DAILY Qty: 90 0RF gabapentin 600 mg tablet 600 mg PO TID 30 Days Qty: 90 3RF baclofen 10 mg tablet 10 mg PO BID PRN (Reason: muscle spasms) 30 Days Qty: 60 3RF venlafaxine 150 mg capsule,extended release 24hr 150 mg PO BID Qty: 180 1RF furosemide 20 mg tablet 20 mg PO DAILY Qty: 30 2RF Protocol: Hold for SBP< HOLD for SBP < : 90 varenicline tartrate [Chantix] 1 mg tablet 1 mg PO BID Qty: 56 0RF docusate sodium 100 mg capsule 100 mg PO BID PRN (Reason: Constipation) fluticasone propionate 50 mcg/actuation spray,suspension 1 spray intranasal Q12H PRN (Reason: Allergy Symptoms) guaifenesin [Mucinex] 600 mg Tablet Extended Release 12hr 600 mg PO BID Qty: 14 0RF acetaminophen 325 mg Tablet 650 mg PO Q6H PRN (Reason: Pain, Mild 1-3,Fever,Headache) 30 Days Qty: 240 0RF hydrocodone-acetaminophen 5-325 mg tablet 1 tab PO Q6H PRN (Reason: pain) Qty: 8 0RF Rx Instructions: partial fill okay; Partial Fill upon patient request. albuterol sulfate [Ventolin HFA] 90 mcg/actuation HFA aerosol inhaler 2 puff inhalation Q6H PRN (Reason: shortness of breath or wheezing) Qty: 8.5 4RF clonidine HCl 0.1 mg tablet 0.1 mg PO TID 90 Days Qty: 270 1RF trazodone 50 mg tablet 50 mg PO BEDTIME PRN (Reason: sleep) Qty: 30 3RF nicotine (polacrilex) 4 mg gum 4 mg buccal Q2H PRN (Reason: nicotine cravings) Qty: 100 0RF acetazolamide 250 mg tablet 250 mg PO DAILY 30 Days Qty: 30 3RF budesonide 0.5 mg/2 mL suspension for nebulization 0.5 mg inhalation BID 30 Days Qty: 120 3RF prednisone 10 mg tablet 10 mg PO DAILY 30 Days Qty: 30 1RF Print Language: Korean
[2024-09-20 14:14] LABS: Basophils Percent Auto 0.3 % (0-2); Eosinophils Percent Auto 0.3 % (0-4); Hematocrit 44.5 % (37.0-47.0); Hemoglobin 13.9 g/dl (12.0-16.0); Imm Gran Abs Auto 0.07 X10*3/uL (0.00-0.03); Imm Gran Pct Auto 0.7 % (0.0-0.4); Lymphocytes Absolute Auto 0.6 X10*3/uL (1.2-4.9); Lymphocytes Percent Auto 5.5 % (20-40); MANUAL DIFF FLAG SCAN; Mean Corpuscular HGB Conc 31.2 g/dl (31.0-35.0); Mean Corpuscular Hemoglobin 27.6 pg (27.0-33.0); Mean Corpuscular Volume 88.5 fL (80.0-98.0); Mean Platelet Volume 9.2 fL (9.4-12.3); Monocytes Absolute Auto 0.2 X10*3/uL (0.1-1.2); Monocytes Percent Auto 1.9 % (2-11); Neutrophils Absolute Auto 9.7 x10*3/uL (2.0-8.3); Neutrophils Percent Auto 91.3 % (45-73); Platelet Count 303 X10*3/uL (160-400); Red Blood Count 5.03 X10*6/uL (4.20-5.50); Red Cell Distribution Width 19.9 % (11.0-16.0); SCAN SMEAR FLAG 1; White Blood Count 10.6 X10*3/uL (4.8-10.8)
[2024-09-20 14:25] LABS: Anion Gap 11 (12-20); Blood Urea Nitrogen 17 mg/dL (9-16); Calcium 9.5 mg/dL (8.4-10.2); Carbon Dioxide 29 mmol/L (22-29); Chloride 106 mmol/L (96-108); Creatinine Clr Calc Pharmacy 107.3; Estimated Glomerular Filt Rate > 60; Glucose Random 114 mg/dL (60-115); Potassium 4.1 mmol/L (3.3-5.1); Sodium 142 mmol/L (135-145)
[2024-09-20 14:38] LABS: SLIDE REVIEW VERIFIED
--- NOTE | 2024-09-20 15:39 | PC.NURSE ---
Report given to GIOVANNI Grey.
[2024-09-20] MEDS: propofoL 200 MG/20 ML VIAL IVPUSH (16:07)
[2024-09-20] MEDS: propofoL 200 MG/20 ML VIAL 75 MG IVPUSH (16:40)
--- NOTE | 2024-09-20 16:55 | PC.NURSE ---
propofol given at 1607 25mg 1610 25 mg 1620 50mg 1624 25mg 1630 25mg 1635 25mg 1638 25mg 1640 25mg 1643 25 mg 1645 25mg for a total of 275mg
--- NOTE | 2024-09-20 17:13 | P.HPOP_ITS ---
History of Present Illness History of Present Illness Date of Service: 09/20/24 Chief complaint: R HIP PAIN S/P TWIST,REPLACED APRIL Narrative: Rody Xiong is a 59 year old female with an unstable right hip. She twisted awkwardly and her hip redislocated. The ED tried to reduce it but were unable to give enough sedation b/c aof her hypoxia 2/2 COPD. [facility] Past Medical History Medical History Respiratory failure with hypoxia and hypercapnia Pulmonary edema Resides in group home facility Heart failure with preserved ejection fraction Substance abuse Acute exacerbation of chronic obstructive pulmonary disease Lumbar spondylosis Trochanteric bursitis of right hip Obesity Nicotine dependence, cigarettes, uncomplicated History of sepsis Urinary frequency COPD (chronic obstructive pulmonary disease) Exercise hypoxemia Smoker Bilateral hip pain Dyslipidemia Lower back pain Anxiety associated with depression Somatic dysfunction of left sacroiliac joint Family History Family History Father Substance use disorder Mother Substance use disorder Mental health disorder Maternal Grandmother Substance use disorder Mental health disorder Surgical History Surgical History History of section Social History Social History Household Members: Spouse Housing: House Housing Other:: currently @ [facility] for rehab Are you a primary ostomy care nurse to a significant other at home: No Do you presently have visiting nurse or other home services: No Unable to assess alcohol history related to: Unable to respond Alcohol intake: former Patient Tobacco Use Status: Former Tobacco user Tobacco use type: Cigarette Cigarette Packs Per Day: 0.5 Cigarettes Per Day: 2 Years Smoked: 30 e-Cigarette/Vaping Use: Never Used Second Hand Smoke Exposure: No Substance Use Type: Crack/Cocaine service: No Current occupational status: employed Current occupation: [employer] Cognitive needs: No Hearing needs: No Vision needs: No Meds Allergies Allergy/AdvReac Type Severity Reaction Status Date / Time lansoprazole [Prevacid] Allergy Severe anaphylaxis Verified 09/20/24 11:40 cyclobenzaprine Allergy Intermediate Rash Verified 09/20/24 11:40 [From Flexeril] Home Medications ?Medication ?Instructions ?Recorded ?Confirmed ?Last Taken ?Type docusate sodium 100 mg capsule 100 mg PO BID PRN Constipation 07/09/24 09/07/24 Unknown History fluticasone propionate 50 1 spray intranasal Q12H PRN 07/09/24 09/07/24 Unknown History mcg/actuation nasal Allergy Symptoms spray,suspension Physical Exam 2 Vital Signs: Vital Signs: Last Vital Signs Temp 98.1 F 09/20/24 16:36 Pulse 100 09/20/24 16:58 Resp 19 09/20/24 16:58 BP 112/72 09/20/24 16:58 Pulse Ox 93 09/20/24 16:58 O2 Del Method Room Air 09/20/24 16:58 Oxygen Flow Rate 3 09/20/24 16:50 BMI result Body Mass Index 37.9 Extrem: Other: Right leg is shortened and slightly internally rotated. Firing ehl/ta/gc DP+2 Results Labs 09/20/24 14:06 09/20/24 14:06 Labs: Abnormal lab results 09/20/24 Range/Units 14:06 RDW 19.9 H (11.0-16.0) % MPV 9.2 L (9.4-12.3) fL Immature Gran % (Auto) 0.7 H (0.0-0.4) % Neut % (Auto) 91.3 H (45-73) % Lymph % (Auto) 5.5 L (20-40) % [place] % (Auto) 1.9 L (2-11) % Lymph # (Auto) 0.6 L (1.2-4.9) X10*3/uL Abs Immat Gran (auto) 0.07 H (0.00-0.03) X10*3/uL Absolute Neuts (auto) 9.7 H (2.0-8.3) x10*3/uL Anion Gap 11 L (12-20) BUN 17 H (9-16) mg/dL H & H 09/20/24 Range/Units 14:06 Hgb 13.9 D (12.0-16.0) g/dl Hct 44.5 D (37.0-47.0) % All other labs normal. Diagnostic results Hip x-ray: image reviewed (right hip anterior dislocation) Assessment and Plan (1) Dislocation of prosthesis of right hip joint: Status: Acute Plan Chronically unstable hip with dislocation today. ED uncomfortable with skeletal relaxation. Need to go to OR to reduce. Discussed with patient. She agrees. Will be admitted for obs with medicine consult Quality Stroke Does the patient have a stroke diagnosis?: No VTE Prior VTE?: No VTE Risk Level:: Medical - low VTE Device Contraindication: N/A - Device Ordered VTE Drug Contraindication: Treatment Not Indicated Procedures Date of Service Date of Service: 09/20/24
[2024-09-20] MEDS: HYDROmorphone HCl 0.5 MG/0.5 ML SYRINGE IVPUSH (18:22)
[2024-09-20] MEDS: oxyCODONE HCl ER 10 MG TAB.ER.12H PO (18:48)
--- NOTE | 2024-09-20 20:00 | PHA.MEDREC ---
Addendum entered by Alycia Valentin kallie 09/20/24 20:20: REVIEWED Original Note: Pharmacy Consult ? Medication Reconciliation Pharmacy has completed the medication reconciliation. Spoke to patient to confirm med list. Patient states she is no longer taking Farxiga 10 mg ( *Can't afford to pick it up* Been off the medication for 1 week now*) Docusate sodium 100 mg, Hydrocodone-Acetaminophen 5-325 mg. Patient confirm prednisone 10 mg daily.
[2024-09-20] MEDS: Lactated Ringers 1,000 ML 100 ML IVCONT (20:07)
[2024-09-20] MEDS: oxyCODONE HCl Immed Release 5 MG TABLET PO (21:09)
--- NOTE | 2024-09-20 23:03 | P.CONHOSP_ITS ---
History of Present Illness Data of Consult Service Date: 09/20/24 Requesting physician: Kamaljit Sweeney Primary Care Provider: Juliet Knowles MD [facility] Reason for consult: COPD, Hypoxia Pt is a 59 yo female with PMH tobacco dependece, COPD, HTN, CHF, MRSA positive via nasal swab, obesity, OA , R hip replacement 05/06presents to ED with dislocation of right hip prosthesis, originally done in April 2024. Pt admitted by Dr. Sweeney and hospitalist consulted for COPD/ hypoxia. Pt seen and is on 2L NC experiencing no respiratory distress. Patient's lowest pulse ox is 93% since being in the emergency department. Patient currently denies productive cough, chest pain and shortness of breath at rest. Patient has not had any recent colds or pneumonia. Patient does stay up-to-date with her vaccinations. Chest x-ray completed and indicates low lung volumes but otherwise no acute findings. Patient offers that she does use oxygen at home especially at night and during the day as needed. Patient does not use oxygen when she is driving or at work. Patient offers that she stopped smoking back in February of 2024 and has been on Chantix since July of 2024 with no adverse effects including suicidal ideations. Patient does routinely use her inhalers and follows with a barrel endshake adjuster. In addition patient shares that she was seen by Cardiology sometime last year and was told to start Farxiga but due to the cost and lack of insurance coverage patient has not yet started this medication. Patient did not have a previous follow-up plan with Cardiology. BNP is pending. Plan is to do additional blood work and EKG for thorough workup prior to possible procedure on 09/21/2024 with Orthopedics to repair the hip dislocation of prosthesis. Adding budesonide twice daily to help with her chronic COPD. VBG also pending. Review of Systems 2 Review of Systems: Patient currently denies any chest pain, shortness of breath at rest or with exertion. Patient uses oxygen at home and it helps her when it is time for sleep. Patient offers no changes in her appetite denies any nausea vomiting, or diarrhea but does have chronic issues with constipation. Patient offers that this is the 4th or 5th time her hip is dislocated since having the prosthesis and patient is hoping for a repositioning of the hip versus surgery requiring general anesthesia noting her COPD. Yes all other systems are reviewed and are negative [facility] Medical History (Updated 09/21/24 @ 00:50 by DAVE England) Respiratory failure with hypoxia and hypercapnia Pulmonary edema Resides in halfway facility Heart failure with preserved ejection fraction Substance abuse Acute exacerbation of chronic obstructive pulmonary disease Lumbar spondylosis Trochanteric bursitis of right hip Obesity Nicotine dependence, cigarettes, uncomplicated History of sepsis Urinary frequency COPD (chronic obstructive pulmonary disease) Exercise hypoxemia Smoker Bilateral hip pain Dyslipidemia Lower back pain Anxiety associated with depression Somatic dysfunction of left sacroiliac joint Functional capacity: independent ambulation (Prior to hip dislocation) Patient : No Family History Father Substance use disorder Mother Substance use disorder Mental health disorder Maternal Grandmother Substance use disorder Mental health disorder Surgical History (Updated 09/20/24 @ 23:08 by DAVE England) S/P total right hip arthroplasty History of section Social History Household Members: Spouse Housing: House Housing Other:: currently @ [facility] for rehab Are you a primary career resource specialist to a significant other at home: No Do you presently have visiting nurse or other home services: No Unable to assess alcohol history related to: Unable to respond Alcohol intake: former Patient Tobacco Use Status: Former Tobacco user Tobacco use type: Cigarette Cigarette Packs Per Day: 0.5 Cigarettes Per Day: 2 Years Smoked: 30 e-Cigarette/Vaping Use: Never Used Second Hand Smoke Exposure: No Substance Use Type: Crack/Cocaine service: No Current occupational status: employed Current occupation: [employer] Cognitive needs: No Hearing needs: No Vision needs: No Ebola Risk: Travel/Contact With Anyone From Affected Area/s: No Has Patient Experienced Ebola Symptoms: No Meds Allergies Allergy/AdvReac Type Severity Reaction Status Date / Time lansoprazole [Prevacid] Allergy Severe anaphylaxis Verified 09/20/24 11:40 cyclobenzaprine Allergy Intermediate Rash Verified 09/20/24 11:40 [From Flexeril] Active Medications: Current Medications Acetaminophen (Acetaminophen 325 Mg Tablet) 650 mg PO Q6H PRN PRN Reason: Pain, Mild 1-3,fever,headache Lactated Ringer's (Lr) 1,000 mls @ 100 mls/hr IVCONT .Q10H [facility] Last Admin: 09/20/24 20:07 Dose: 100 mls/hr Melatonin (Melatonin 3 Mg Tablet) 6 mg PO BEDTIME PRN PRN Reason: Insomnia Oxycodone HCl (Oxycodone Hcl Immed Release 5 Mg Tablet) 5 mg PO Q4H PRN PRN Reason: Pain, Moderate(Pain Scale 4-6) Last Admin: 09/20/24 21:09 Dose: 5 mg Sodium Chloride (0.9 % Sodium Chloride Flush 3 Ml Syringe) 3 ml IVFLUSH QSHIFT [facility] Home Medications ?Medication ?Instructions ?Recorded ?Confirmed ?Last Taken ?Type docusate sodium 100 mg capsule 100 mg PO BID PRN Constipation 07/09/24 09/20/24 09/20/24 History fluticasone propionate 50 1 spray intranasal Q12H PRN 07/09/24 09/20/24 Unknown History mcg/actuation nasal Allergy Symptoms spray,suspension celecoxib 200 mg capsule 200 mg PO BID 09/20/24 09/20/24 09/20/24 History furosemide 20 mg tablet 40 mg PO DAILY 09/20/24 09/20/24 09/20/24 History Physical Exam 2 Vital Signs and Narrative: Vital Signs: Last Vital Signs Temp 97.8 F 09/20/24 20:19 Pulse 99 09/20/24 20:19 Resp 19 09/20/24 20:19 BP 142/89 H 09/20/24 20:19 Pulse Ox 99 09/20/24 20:19 O2 Del Method Nasal Cannula 09/20/24 20:19 O2 Flow Rate 2 09/20/24 20:19 Oxygen Flow Rate 3 09/20/24 16:50 BMI result Body Mass Index 37.9 Alert and orientated X3, able to give good history. Neuro: CN II-X11 intact, no deficits, visual acuity intact EYES: PERRLA, EOM intact ENT: hearing intact, no issues with swallowing, uvula midline, lips moist, nares patent no epistaxis Cardiac: S1 S2 RRR, no murmur, no JVD, no edema in Lower ext Pulmonary: lungs diminished at the base Abdominal: BS active in all 4 quadrants, no guarding, tenderness, rebounding MSK: strength 5/5 upper and left lower extremities , unable to assess strength in right lower extremity : no CVA tenderness no bladder distension Extremities: no edema in lower extremities, PT and DP pulses palpable +2 Psych: mood irritable, judgement and insight good :Skin intact Results Labs 09/20/24 14:06 09/20/24 14:06 Labs: Laboratory Results - last 24 hr 09/20/24 14:06 MCV 88.5 MCH 27.6 MCHC 31.2 RDW 19.9 H Plt Count 303 MPV 9.2 L Immature Gran % (Auto) 0.7 H Neut % (Auto) 91.3 H Lymph % (Auto) 5.5 L [place] % (Auto) 1.9 L Eos % (Auto) 0.3 Baso % (Auto) 0.3 Lymph # (Auto) 0.6 L [place] # (Auto) 0.2 Eos # (Auto) 0.0 Baso # (Auto) 0.0 Abs Immat Gran (auto) 0.07 H Absolute Neuts (auto) 9.7 H Absolute Nucleated RBC 0.000 Nucleated RBC % (auto) 0.0 Smear Tech's Comments VERIFIED Anion Gap 11 L Estim Creat Clear Calc 107.3 Estimated GFR > 60 Random Glucose 114 Calcium 9.5 D ECG Prior ECG tracings: not available for review Imaging Radiologist's Impressions: Impressions Hip X-Ray 09/20/24 13:29 IMPRESSION: Superior dislocation of the femoral stem component of a right total hip arthroplasty. Electronically signed by: Neel Calderón MD 09/20/2024 02:41 PM EDT RP Chest x-ray Findings: No consolidation or effusion. Normal size heart. No acute fracture. IMPRESSION: 1. Low lung volume, otherwise unremarkable Assessment and Plan (1) COPD (chronic obstructive pulmonary disease): Status: Acute Plan Pt is a 59 yo female with PMH tobacco dependece, COPD, HTN, CHF, MRSA positive via nasal swab, obesity, OA , R hip replacement 05/06 has been admitted by orthopedics for right hip dislocation. Hospitalist consulted for COPD/hypoxia. S/p disloation of R hip prosthesis -per Orthopedics Hypoxia -No obvious evidence of hypoxia as patient's lowest pulse ox was 93% since being in the emergency department today -Patient normally uses oxygen at home especially at night and during the day as needed. -VBG ordered and pending -We will continue patient's usual nebulizing treatments -Adding incentive spirometry due to noted atelectasis on chest x-ray -Chest x-ray negative for any consolidations, opacities, pulmonary edema or pleural effusion -Viral studies for flu, COVID and RSV pending COPD without exacerbation -Patient previous smoker who stopped in February of 2025, currently on Chantix -Patient does use oxygen at home as above -Optimizing lung performance by continuing budesonide twice daily, duonebs prn and incentive spirometry -Patient does follow with a barrel endshake adjuster in the outpatient setting -Unsure when patient's last PFT testing was performed, patient educated this should be done routinely to monitor patient's lung viability -Will continue Diamox CHF -Patient states she was seen by Cardiology sometime in 2023 and was supposed to start for [facility], but due to cost and lack of insurance coverage patient was not able to start this. Patient did not update Cardiology regarding this. -Continue Lasix -Patient not currently on MELLY or ARB -Monitor daily weights, low-sodium diet Hypertension -Continue metoprolol -Low-salt diet Hx of Tobacco dependence with current cessation -Patient currently on Chantix and is no longer smoking or vaping -Patient has had no adverse effects being on Chantix including suicidal ideations Depression/anxiety -Continue venlafaxine, trazodone Hospitalist will follow regarding pending labs, EKG and pulmonary status. We appreciate this consultation. 0300 Nursing reported pt is wheezing, ordered duo neb. BNP WNL. VBG 7.31, 55, 37, 28 metabolic acidosis. Pt's ddimer also elevated, holding off on CTA currently, likely elevated due to chronic cardiac and pulmonary issues. Reviewing with attending Dr. Baez. Will order CTA if indicated or no improvement in pt's clinical presentation with wheezing. Lungs were clear earlier and CXR negative for acute findings, positive for atlectasis. Incentive spirometer ordered. RSV, FLU and COVID all negative. After duoneb, pt improved and was able to fall asleep.
[2024-09-21] VITALS (9 sets, daily range): BP systolic 122–163; BP diastolic 67–96; PULSE 88–94; RESP 16–20; TEMP 36.4–36.8; O2SAT 93–98
[2024-09-21 01:51] LABS: Venous Blood Gas Refer to POC result
[2024-09-21 01:54] LABS: VBG Base Excess 1.1 mmol/L; VBG HCO3 28 mmol/L (22-26); VBG pCO2 55 mmHg; VBG pH 7.31 (7.32-7.43); VBG pO2 37 mmHg
[2024-09-21 02:01] LABS: D Dimer High Sensitivity 554 NG/ML
[2024-09-21 02:10] LABS: B Type Natriuretic Peptide 45 pg/mL (<100)
[2024-09-21 02:24] LABS: TSH reflex Free T4 1.55 uIU/mL (0.32-4.0)
[2024-09-21 02:30] LABS: Influenza A PCR NEGATIVE (Negative); Influenza B PCR NEGATIVE (Negative); Resp Syncy Virus RNA Qual PCR NEGATIVE (Negative); SARS COV2 PCR INHOUSE NEGATIVE (Negative)
[2024-09-21] MEDS: Acetaminophen 325 MG TABLET 650 MG PO (02:43)
[2024-09-21] MEDS: oxyCODONE HCl Immed Release 5 MG TABLET PO (02:44)
[2024-09-21] MEDS: Albuterol/Iprat 2.5/0.5MG 3 ML AMPUL.NEB INHALE (03:01)
[2024-09-21] MEDS: Lactated Ringers 1,000 ML 100 ML IVCONT (06:54)
--- NOTE | 2024-09-21 07:01 | MHC.SHP ---
Pre-Procedural Eval Section A - 24 Hr Update-Section A only Date of Service: 09/21/24 The patient is an INPATIENT: Yes Changes since office visit: No Cold of Flu in the past 2 weeks, No New Medical Problems, No Changes in Medication and No Patient answered all questions The patient has been examined within 24 hours of the surgical procedure. The History & Physical has been completed within 30 days and I have reviewed it.: Yes Section B - Complete if H&P > 30 days Chief Complaint: R HIP PAIN S/P TWIST,REPLACED APRIL Allergies: Allergies Allergy/AdvReac Type Severity Reaction Status Date / Time lansoprazole [Prevacid] Allergy Severe anaphylaxis Verified 09/20/24 11:40 cyclobenzaprine Allergy Intermediate Rash Verified 09/20/24 11:40 [From Flexeril] Plan I have reviewed the history and physical and performed a pertinent physical examination on my patient. No changes have occurred unless specified. Time Spent With Patient Time: Total time managing care of this patient today ____ minutes.
--- NOTE | 2024-09-21 07:27 | HO.ANESPROP2 ---
[facility] Active Problems Active Problems: All Active Problems COPD (chronic obstructive pulmonary disease) (Acute) Dislocation, hip (Acute) Smoker (Acute) Respiratory failure with hypoxia and hypercapnia (Acute) Dislocation of prosthesis of right hip joint (Acute) Pneumonia (Acute) COPD with exacerbation (Acute) URI, acute (Acute) S/P total right hip arthroplasty (Acute) Pre-op evaluation (Acute) (HFpEF) heart failure with preserved ejection fraction (Chronic) Preoperative cardiovascular examination (Acute) Avascular necrosis of bone of right hip (Acute) Scoliosis associated with other condition (Acute) Degenerative arthritis of hip (Acute) OAB (overactive bladder) (Acute) Bladder wall thickening (Acute) Microscopic hematuria (Acute) Vitamin D deficiency (Acute) Urinary incontinence with continuous leakage (Acute) Elevated LFTs (Acute) Low back pain radiating to lower extremity (Acute) COPD (chronic obstructive pulmonary disease) (Chronic) Acute exacerbation of chronic obstructive pulmonary disease (Acute) Lumbar spondylosis (Acute) Trochanteric bursitis of right hip (Acute) Exercise hypoxemia (Acute) Nicotine dependence, cigarettes, uncomplicated (Acute) Obesity (Chronic) Urinary frequency (Acute) Bilateral hip pain (Acute) Past Medical History Medical History (Updated 09/21/24 @ 00:50 by DAVE England) Respiratory failure with hypoxia and hypercapnia Pulmonary edema Resides in [facility] facility Heart failure with preserved ejection fraction Substance abuse Acute exacerbation of chronic obstructive pulmonary disease Lumbar spondylosis Trochanteric bursitis of right hip Obesity Nicotine dependence, cigarettes, uncomplicated History of sepsis Urinary frequency COPD (chronic obstructive pulmonary disease) Exercise hypoxemia Smoker Bilateral hip pain Dyslipidemia Lower back pain Anxiety associated with depression Somatic dysfunction of left sacroiliac joint Functional capacity: independent ambulation (Prior to hip dislocation) Family History Family History Father Substance use disorder Mother Substance use disorder Mental health disorder Maternal Grandmother Substance use disorder Mental health disorder Family history of problems with anesthesia: No Surgical History Surgical History (Updated 09/20/24 @ 23:08 by DAVE England) S/P total right hip arthroplasty History of section History of Problems with Anesthesia: No Social History Social History Household Members: Spouse Housing: House Housing Other:: currently @ [facility] for rehab Are you a primary critical care physician assistant to a significant other at home: No Do you presently have visiting nurse or other home services: No Unable to assess alcohol history related to: Unable to respond Alcohol intake: former Patient Tobacco Use Status: Former Tobacco user Tobacco use type: Cigarette Cigarette Packs Per Day: 0.5 Cigarettes Per Day: 2 Years Smoked: 30 e-Cigarette/Vaping Use: Never Used Second Hand Smoke Exposure: No Substance Use Type: Crack/Cocaine service: No Current occupational status: employed Current occupation: [employer] Cognitive needs: No Hearing needs: No Vision needs: No Meds Allergies Allergy/AdvReac Type Severity Reaction Status Date / Time lansoprazole [Prevacid] Allergy Severe anaphylaxis Verified 09/20/24 11:40 cyclobenzaprine Allergy Intermediate Rash Verified 09/20/24 11:40 [From Flexeril] Active Medications: Current Medications Acetaminophen (Acetaminophen 325 Mg Tablet) 650 mg PO Q6H PRN PRN Reason: Pain, Mild 1-3,fever,headache Last Admin: 09/21/24 02:43 Dose: 650 mg Acetazolamide (Acetazolamide 250 Mg Tablet) 250 mg PO DAILY PER Albuterol/Ipratropium (Albuterol/Iprat 2.5/0.5mg 3 Ml Ampul.Neb) 3 ml INHALE Q4H PRN PRN Reason: Shortness of Breath/Wheezing Budesonide (Budesonide 0.5 Mg/2 Ml Ampul.Neb) 0.5 mg INHALE RBID PER Clonidine HCl (Clonidine Hcl 0.1 Mg Tablet) 0.1 mg PO TID PER; Protocol Docusate Sodium (Docusate Sodium 100 Mg Capsule) 100 mg PO BID PRN PRN Reason: Constipation Fluticasone Propionate (Fluticasone Propionate Nasal 16 Gm Ruffin) 1 spray NOSTRIL-B Q12H PRN PRN Reason: Allergy Symptoms Furosemide (Furosemide 40 Mg Tablet) 40 mg PO DAILY PER; Protocol Gabapentin (Gabapentin 600 Mg Tablet) 600 mg PO TID PER Lactated Ringer's (Lr) 1,000 mls @ 100 mls/hr IVCONT .Q10H PER Last Admin: 09/21/24 06:54 Dose: 100 mls/hr Melatonin (Melatonin 3 Mg Tablet) 6 mg PO BEDTIME PRN PRN Reason: Insomnia Non-Formulary Medication (Varenicline Tartrate [Chantix]) 1 mg PO BID [facility] Oxycodone HCl (Oxycodone Hcl Immed Release 5 Mg Tablet) 5 mg PO Q4H PRN PRN Reason: Pain, Moderate(Pain Scale 4-6) Last Admin: 09/21/24 02:44 Dose: 5 mg Sodium Chloride (0.9 % Sodium Chloride Flush 3 Ml Syringe) 3 ml IVFLUSH QSHIFT [facility] Last Admin: 09/21/24 05:02 Dose: Not Given Trazodone HCl (Trazodone Hcl 50 Mg Tablet) 50 mg PO BEDTIME PRN PRN Reason: sleep Venlafaxine HCl (Venlafaxine Hcl Er 150 Mg Cap.Er.24h) 150 mg PO BID [facility] Home Medications ?Medication ?Instructions ?Recorded ?Confirmed ?Last Taken ?Type docusate sodium 100 mg capsule 100 mg PO BID PRN Constipation 07/09/24 09/20/24 09/20/24 History fluticasone propionate 50 1 spray intranasal Q12H PRN 07/09/24 09/20/24 Unknown History mcg/actuation nasal Allergy Symptoms spray,suspension celecoxib 200 mg capsule 200 mg PO BID 09/20/24 09/20/24 09/20/24 History furosemide 20 mg tablet 40 mg PO DAILY 09/20/24 09/20/24 09/20/24 History Exam Height,Weight and Vital Signs: Height 5 ft 1 in Weight 91 kg Last Vital Signs Temp 97.8 F 09/21/24 05:12 Pulse 88 09/21/24 05:12 Resp 16 09/21/24 05:12 BP 143/85 H 09/21/24 05:12 Pulse Ox 98 09/21/24 05:12 O2 Del Method Nasal Cannula 09/21/24 05:12 O2 Flow Rate 2 09/21/24 05:12 Oxygen Flow Rate 3 09/20/24 16:50 Pertinent Lab Results Pertinent Lab Results: Laboratory Tests 09/20/24 09/21/24 09/21/24 14:06 01:42 01:49 WBC 10.6 RBC 5.03 D Hgb 13.9 D Hct 44.5 D MCV 88.5 MCH 27.6 MCHC 31.2 RDW 19.9 H Plt Count 303 MPV 9.2 L Immature Gran % (Auto) 0.7 H Neut % (Auto) 91.3 H Lymph % (Auto) 5.5 L [place] % (Auto) 1.9 L Eos % (Auto) 0.3 Baso % (Auto) 0.3 Lymph # (Auto) 0.6 L [place] # (Auto) 0.2 Eos # (Auto) 0.0 Baso # (Auto) 0.0 Abs Immat Gran (auto) 0.07 H Absolute Neuts (auto) 9.7 H Absolute Nucleated RBC 0.000 Nucleated RBC % (auto) 0.0 Smear Tech's Comments VERIFIED D-Dimer High Sensitivty 554 VBG pH 7.31 L VBG pCO2 55 VBG pO2 37 VBG HCO3 28 H VBG O2 Saturation 55.0 VBG Base Excess 1.1 Sodium 142 Potassium 4.1 Chloride 106 Carbon Dioxide 29 Anion Gap 11 L BUN 17 H Creatinine 0.58 Estim Creat Clear Calc 107.3 Estimated GFR > 60 Random Glucose 114 Calcium 9.5 D B-Natriuretic Peptide 45 TSH 1.55 Influenza Type A (PCR) NEGATIVE Influenza Type B (PCR) NEGATIVE RSV RNA Qual (PCR) NEGATIVE SARS-CoV-2 RNA (RT-PCR) NEGATIVE Airway Mallampati Class: III TM Dist: >3cm Neck ROM: Full Assessment and Plan Assessment Anesthesia Assessment: Anesthesia Plan Discussed and Chart Reviewed Final Anesthetic Review Family History of Problems with Anesthesia: No History of Problems with Anesthesia: No NPO: Yes ASA Class: III and Emergency Final Preanesthetic Review: No Changes in Pt Med Stat, Meds/Allgs Chart Reviewed, Consent Obtained/Reviewed and Anes Risks/Benef Reviewed Patient Risk: Intermediate Procedure Risk: Low Anesthetic Plan Anesthetic Plan: GA Disposition: Standard PACU
--- NOTE | 2024-09-21 08:01 | P.BOP_ITS ---
Brief Operative Note Date of Service: 09/21/24 Pre-op diagnosis: Right hip dislocation Post-op diagnosis: same Procedure: Closed reduction right hip Implants: none Surgeon: Kamaljit Sweeney MD Anesthesia: GLMA Was an Auto Service Mechanic used for this Procedure?: No Estimated blood loss (mL): 0 IV fluids (mL): 250 Pathology: none sent Condition: stable Disposition: PACU
--- NOTE | 2024-09-21 08:44 | PM.DS ---
DS: Providers Provider Date of Service: 09/21/24 Date of discharge: 09/21/24 Primary care physician: Juliet Knowles MD Consults: 09/20/24 19:52 Consult to Hospitalist Routine Comment: Consulting [place] [facility] Reason For Exam: COPD and hip dislocation Consult to Hospitalist Routine Comment: Consulting Provider: [facility] Reason For Exam: COPD hypoxia DS: Diagnosis Discharge Diagnosis (1) Dislocation, hip: Status: Acute DS: Summary Hospital Course Hospital Course: The patient sustained a right hip prosthesis dislocation and was brought to the operating room for closed reduction under sedation. Reduction was successful and the patient was brought to recovery and the plan is to be discharged home. Patient should be weight-bearing as tolerated. Advance activities as tolerated. Patient should use her stabilizing brace as directed. She can follow up in the orthopedic office in 3-4 weeks. Time Attestation Discharge Coordination Time (in mins): 15 Quality: Safe Use of Opioids Does Pt have an Active Cancer Diagnosis on the Problem List?: No Quality: Stroke Does the patient have a stroke diagnosis?: No Physical Exam Vital Signs: Vital Signs: Last Vital Signs Temp 97.5 F 09/21/24 08:00 Pulse 90 09/21/24 08:30 Resp 18 09/21/24 08:30 BP 124/67 09/21/24 08:30 Pulse Ox 93 09/21/24 08:30 O2 Del Method Nasal Cannula 09/21/24 08:30 O2 Flow Rate 2 09/21/24 08:30 Oxygen Flow Rate 3 09/20/24 16:50 BMI result Body Mass Index 37.9 DS: Data Data Completed and Pending Completed studies during hospitalization [Text1]: Procedures Revision of Synthetic Substitute in Right Hip Joint, External Approach (07/08/24) Labs on day of discharge: Laboratory Results - last 24 hr 09/20/24 09/21/24 09/21/24 14:06 01:42 01:49 WBC 10.6 RBC 5.03 D Hgb 13.9 D Hct 44.5 D MCV 88.5 MCH 27.6 MCHC 31.2 RDW 19.9 H Plt Count 303 MPV 9.2 L Immature Gran % (Auto) 0.7 H Neut % (Auto) 91.3 H Lymph % (Auto) 5.5 L [place] % (Auto) 1.9 L Eos % (Auto) 0.3 Baso % (Auto) 0.3 Lymph # (Auto) 0.6 L [place] # (Auto) 0.2 Eos # (Auto) 0.0 Baso # (Auto) 0.0 Abs Immat Gran (auto) 0.07 H Absolute Neuts (auto) 9.7 H Absolute Nucleated RBC 0.000 Nucleated RBC % (auto) 0.0 Smear Tech's Comments VERIFIED D-Dimer High Sensitivty 554 VBG pH 7.31 L VBG pCO2 55 VBG pO2 37 VBG HCO3 28 H VBG O2 Saturation 55.0 VBG Base Excess 1.1 Sodium 142 Potassium 4.1 Chloride 106 Carbon Dioxide 29 Anion Gap 11 L BUN 17 H Creatinine 0.58 Estim Creat Clear Calc 107.3 Estimated GFR > 60 Random Glucose 114 Calcium 9.5 D B-Natriuretic Peptide 45 TSH 1.55 Influenza Type A (PCR) NEGATIVE Influenza Type B (PCR) NEGATIVE RSV RNA Qual (PCR) NEGATIVE SARS-CoV-2 RNA (RT-PCR) NEGATIVE Discharge Plan Discharge Patient Disposition: Home, Self-Care Referrals: Kamaljit Sweeney MD [Physician] - 3 Weeks Discharge Medications: New oxycodone 5 mg Tablet 5 mg PO Q4H PRN (Reason: Pain, Moderate(Pain Scale 4-6)) 7 Days Qty: 42 0RF Rx Instructions: Partial Fill upon patient request. Continued (DME) walker Misc See Rx Instructions .MEDSUPPLY Qty: 1 0RF Rx Instructions: Folding Front wheeled walker duration 99 days ipratropium-albuterol 0.5 mg-3 mg(2.5 mg base)/3 mL solution for nebulization 3 ml inhalation RQ4H WHILE AWAKE PRN (Reason: shortness of breath or wheezing) Qty: 90 0RF gabapentin 600 mg tablet 600 mg PO TID 30 Days Qty: 90 3RF baclofen 10 mg tablet 10 mg PO BID PRN (Reason: muscle spasms) 30 Days Qty: 60 3RF venlafaxine 150 mg capsule,extended release 24hr 150 mg PO BID Qty: 180 1RF varenicline tartrate [Chantix] 1 mg tablet 1 mg PO BID Qty: 56 0RF docusate sodium 100 mg capsule 100 mg PO BID PRN (Reason: Constipation) fluticasone propionate 50 mcg/actuation spray,suspension 1 spray intranasal Q12H PRN (Reason: Allergy Symptoms) acetaminophen 325 mg Tablet 650 mg PO Q6H PRN (Reason: Pain, Mild 1-3,Fever,Headache) 30 Days Qty: 240 0RF celecoxib 200 mg capsule 200 mg PO BID furosemide 20 mg tablet 40 mg PO DAILY Protocol: Hold for SBP< HOLD for SBP < : 90 albuterol sulfate [Ventolin HFA] 90 mcg/actuation HFA aerosol inhaler 2 puff inhalation Q6H PRN (Reason: shortness of breath or wheezing) Qty: 8.5 4RF clonidine HCl 0.1 mg tablet 0.1 mg PO TID 90 Days Qty: 270 1RF trazodone 50 mg tablet 50 mg PO BEDTIME PRN (Reason: sleep) Qty: 30 3RF nicotine (polacrilex) 4 mg gum 4 mg buccal Q2H PRN (Reason: nicotine cravings) Qty: 100 0RF acetazolamide 250 mg tablet 250 mg PO DAILY 30 Days Qty: 30 3RF budesonide 0.5 mg/2 mL suspension for nebulization 0.5 mg inhalation BID 30 Days Qty: 120 3RF prednisone 10 mg tablet 10 mg PO DAILY 30 Days Qty: 30 1RF Discharge Orders: Discharge Order (Routine); Ordered 09/21/24 Ordered By: Sree Gaines Activity Restrictions/Additional Instructions: wbat, posterior precautions, stabilization brace ( patient has at home ) Print Language: Greek
--- NOTE | 2024-09-26 09:15 | W.PM.OPN ---
Operative Note Operative Note Date of Service: 09/21/24 Narrative: Date of Service: 09/21/24 Pre-op diagnosis: Right hip dislocation Post-op diagnosis: same Procedure: Closed reduction right hip Implants: none Surgeon: Kamaljit Sweeney MD Anesthesia: GLMA Was an Forming Machine Tender used for this Procedure?: No Estimated blood loss (mL): 0 IV fluids (mL): 250 Pathology: none sent Condition: stable Disposition: PACU Patient was brought to the operating room and placed supine on the surgical table. A time out was called to identify proper site, proper procedure, Once she was adequately paralyzed I applied axial traction and her right hip reduced easily. Radiographs confirmed it was located. She was awakened from anesthesia and brought to the recovery room is stable condition. There were non known complications.
== END 2024-09-21 09:22 | disposition home or self-care (01) ==
LOC: HO.ED 09-21 07:22 → HO.SSS 09-21 07:29
PROVIDERS: Nurse Practitioner Family; Emergency Provider Emergency Medicine Emergency Medical Services; PCP Internal Medicine; Visit Provider Orthopaedic Surgery
PROC: (CPT 27252; principal; 2024-09-21 07:30)
DX: T84.020A Dislocation of internal right hip prosthesis, initial encounter (principal); Y79.8 Miscellaneous orthopedic devices associated with adverse incidents, not elsewhere classified; Y92.9 Unspecified place or not applicable; J44.9 Chronic obstructive pulmonary disease, unspecified; Z03.818 Encounter for observation for suspected exposure to other biological agents ruled out; E78.5 Hyperlipidemia, unspecified; I50.30 Unspecified diastolic (congestive) heart failure; Z96.641 Presence of right artificial hip joint; Z87.891 Personal history of nicotine dependence; Z79.899 Other long term (current) drug therapy
CPT/HCPCS: 27252; 0241U; 36415; 71045; 72170; 73502; 80048; 82803; 83880; 84443; 85025; 85379; 99285; J0330; J1100; J1171; J2003; J2405; J2704; J3010; J7120

== ENCOUNTER → 2024-09-20 11:57 | Outpatient (BNV) | payer OTHER, SELFPAY | PROVIDERS: Emergency Provider Emergency Medicine Emergency Medical Services; PCP Internal Medicine; Visit Provider Nurse Practitioner Family | DX: J44.9 Chronic obstructive pulmonary disease, unspecified (principal) | CPT/HCPCS: 99222 ==

== ENCOUNTER → 2024-09-20 11:57 | Outpatient (BNV) | payer OTHER, SELFPAY | PROVIDERS: Emergency Provider Emergency Medicine Emergency Medical Services; PCP Internal Medicine; Visit Provider Orthopaedic Surgery | DX: T84.020A Dislocation of internal right hip prosthesis, initial encounter (principal) | CPT/HCPCS: 27252; 99024; 99222 ==

== ENCOUNTER → 2024-09-20 13:45 | Outpatient (BNV) | payer OTHER, SELFPAY | PROVIDERS: Emergency Provider Emergency Medicine Emergency Medical Services; PCP Internal Medicine; Visit Provider Radiology Diagnostic Radiology | DX: R06.02 Shortness of breath (principal) | CPT/HCPCS: 71045 ==

== ENCOUNTER → 2024-09-21 07:24 | Outpatient (BNV) | payer OTHER, SELFPAY | PROVIDERS: Emergency Provider Emergency Medicine Emergency Medical Services; PCP Internal Medicine; Visit Provider Radiology Diagnostic Radiology | DX: S73.004D Unspecified dislocation of right hip, subsequent encounter (principal) | CPT/HCPCS: 72170 ==

== ENCOUNTER 2024-09-21 08:45 | Outpatient (REF) | payer OTHER, SELFPAY ==
--- OUTSIDE RECORDS SUMMARY | 2024-09-22 08:58 | XMS_ITS | Clinical Summary ---
Author Organization [facility] Address [address] [place] [address] Care Team Providers Care Living Manager Name Role Phone Gustavo Dias MD Primary Care Provider [phone] Allergies Active Allergy Reactions Criticality Noted Date [...] Documents on File Type Date Recorded Patient Kettle Girl Expl anation MOLST/POLST 03/03/2024 6:25 AM 4 Care Teams Living Manager Relationship Specialty Start Date End Date Gustavo Dias MD [address] [place] [phone] PCP - General Internal Medicine 03/01/24
== END 2024-09-21 08:46 | disposition home or self-care (01) ==
LOC: HO.HOSX 08:45
PROVIDERS: Visit Provider Orthopaedic Surgery
DX: Z13.89 Encounter for screening for other disorder (principal)

== ENCOUNTER → 2024-09-28 13:52 | Outpatient (BNVA) | payer OTHER, SELFPAY | PROVIDERS: PCP Nurse Practitioner Family; Visit Provider Nurse Practitioner Family ==

== ENCOUNTER 2024-10-05 13:33 | Outpatient (AMB) | payer OTHER, SELFPAY ==
[2024-10-05 13:38] VITALS: BP 140/90; PULSE 99; O2SAT 95; BMI 38.7
--- NOTE | 2024-10-05 13:38 | MHC.OFFVIS ---
Vital Signs 10/05/24 13:38 Height 5 ft 1 in Weight 205 lb 0.478 oz BMI 38.7 BP 140/90 H Blood Pressure Location Lt brachial Position Sitting Pulse 99 Pulse Source Pulse Oximeter Pulse Oximetry (%) 95 Oxygen Delivery Method Room Air Intake Visit Reasons: COPD Intake Note: pt is here for follow up and states she is so/so, exertion is terrible, she still feels congestion, heat was tuff on her breathing, has POC at home and using it with benefits. pt is out of her prednisone 10mg and would like a refill. Showplace Manager Required: No Allergies lansoprazole (Prevacid) Allergy (Severe, Verified 10/05/24 13:59) anaphylaxis cyclobenzaprine (From Flexeril) Allergy (Intermediate, Verified 10/05/24 13:59) Rash Medication List - Last Reconciled 10/05/24 by Ramon Avila MD acetaminophen 650 mg (2 x 325 mg) PO Q6H PRN 30 days acetazolamide 250 mg PO DAILY 30 days albuterol sulfate 90 mcg/actuation (Ventolin HFA) 2 puffs inhalation Q6H PRN baclofen 10 mg PO BID PRN 30 days budesonide 0.5 mg (2 mL) inhalation BID 30 days celecoxib 200 mg PO BID clonidine HCl 0.1 mg PO TID 90 days docusate sodium 100 mg PO BID PRN fluticasone propionate 50 mcg/actuation 1 spray intranasal Q12H PRN furosemide 40 mg See Protocol PO DAILY gabapentin 600 mg PO TID 30 days ipratropium-albuterol 0.5 mg-3 mg(2.5 mg base)/3 mL 3 mL inhalation RQ4H WHILE AWAKE PRN nicotine (polacrilex) 4 mg buccal Q2H PRN oxycodone 5 mg PO Q4H PRN 7 days prednisone 10 mg PO DAILY 30 days trazodone 50 mg PO BEDTIME PRN varenicline tartrate (Chantix) 1 mg PO BID venlafaxine ER 150 mg PO BID walker Folding Front wheeled walker duration 99 days Do you need a note to return to daycare/school/sports/work: No HPI HPI COPD: Details: Rody, 59 years old or in is here for short-term follow-up. Her breathing status is definitely improved. Mental status has remained Clear and stable She is following the orders and using meds properly. Has not smoked, sas Chantix has helped She is now planning to retire completely. She did get POC but not using all the times. [facility] Medical History COPD (chronic obstructive pulmonary disease) Respiratory failure with hypoxia and hypercapnia Pulmonary edema Resides in half-way facility Heart failure with preserved ejection fraction Substance abuse Acute exacerbation of chronic obstructive pulmonary disease Lumbar spondylosis Trochanteric bursitis of right hip Obesity Nicotine dependence, cigarettes, uncomplicated History of sepsis Urinary frequency COPD (chronic obstructive pulmonary disease) Exercise hypoxemia Smoker Bilateral hip pain Dyslipidemia Lower back pain Anxiety associated with depression Somatic dysfunction of left sacroiliac joint Surgical History S/P total right hip arthroplasty History of section Family History Father Substance use disorder Mother Substance use disorder Mental health disorder Maternal Grandmother Substance use disorder Mental health disorder Social History Household Members: Spouse Housing: House Housing Other:: currently @ [facility] for rehab Are you a primary rn acute care to a significant other at home: No Do you presently have visiting nurse or other home services: No Unable to assess alcohol history related to: Unable to respond Alcohol intake: former Patient Tobacco Use Status: Former Tobacco user Tobacco use type: Cigarette Cigarette Packs Per Day: 0.5 Cigarettes Per Day: 2 Years Smoked: 30 e-Cigarette/Vaping Use: Never Used Second Hand Smoke Exposure: No Substance Use Type: Crack/Cocaine service: No Current occupational status: employed Current occupation: [employer] Cognitive needs: No Hearing needs: No Vision needs: No Review of Systems Const All systems reviewed & are unremarkable except as noted in HPI and below Eyes Reports no additional complaints ENT Reports no additional complaints Card Denies chest pain, Denies irregular heart rhythm and Reports dyspnea on exertion Resp Reports as per HPI, Reports dyspnea on exertion and Denies wheezing GI Reports no additional complaints Reports no additional complaints Musc Reports back pain, Reports myalgias and Reports arthralgias (Painful right hip and has difficulty in standing and walking) Skin/Breast Reports system reviewed and no additional complaints, except as documented Neuro Reports no additional complaints Psych Reports anxiety Endo Reports no additional complaints Aller/Immun Denies wheezing Physical Exam Vital Signs: Last Vital Signs Pulse 99 10/05/24 13:38 BP 140/90 H 10/05/24 13:38 Pulse Ox 95 10/05/24 13:38 Oxygen Delivery Method Room Air 10/05/24 13:38 BMI result Body Mass Index 38.7 Const General: comfortable, no acute distress, alert and awake Orientation/consciousness: patient oriented x3 HEENT Head: Yes normal to inspection General nose exam: No nasal polyps present and No nasal discharge present Face and sinus: Yes sinuses nontender Mouth: oropharynx normal (MUCOSA IS DRY AND SLIGHTLY REDDISH, NO EXUDATES) Throat: Yes posterior oropharynx normal Eyes General: appearance normal, both eyes and all related structures Neck Neck: Yes normal visual inspection, Yes no lymphadenopathy, Yes trachea midline and Yes no JVD Thyroid: Thyroid normal Chest Chest palpation & inspection: normal inspection of the chest, normal palpation of entire chest wall and no tenderness Resp Other: PERCUSSION NOTE IS RESONANT, BREATH SOUNDS ARE DISTANT BUT EQUAL ON BOTH SIDES. NO WHEEZES RHONCHI OR CREPITATIONS ARE HEARD . Cardio Palpation: normal PMI Rate: regular rate Rhythm: regular rhythm Heart sounds: no gallops and no murmurs Peripheral pulses: Peripheral pulses 2+ throughout GI Palpation (GI): Soft to palpation, nontender, No hepatosplenomegaly present and no masses Auscultation: normal bowel sounds Back/Spine/Pelvis Thoracic/Lumbar Spine: thoracic and lumbar spine normal to inspection Skin General skin exam: no rashes or lesions noted Neuro General: patient oriented x3 and no focal motor deficits Cranial nerves: Yes CN's II-XII intact bilaterally Extrem General: No normal to inspection (Patient is in wheelchair and not able to stand or walk due to severe pain. ), Yes no clubbing, cyanosis or edema and Yes no calf tenderness Psych Appearance: grossly normal and well kempt Speech and movement: Normal speech and movement present Assessment & Plan Assessment & Plan (1) COPD (chronic obstructive pulmonary disease): Comment: THIS PATIENT IS A KNOWN CASE OF ADVANCED CHRONIC OBSTRUCTIVE PULMONARY DISEASE. DEFINITELY RELATED TO HER LIFELONG SMOKING. RECENTLY HAS BEEN TREATED AT [facility] AND THEN AT [facility] FOR A FEW DAYS, SHE DID HAVE HYPERCAPNIA WHICH IMPROVED AFTER USE OF BIPAP. AT HOME JUST USING O2 2 L/MINUTE AT NIGHT AND PRN DURING THE DAYTIME. RESPIRATORY STATUS IS STABLE AND ALSO MENTAL STATUS HAS REMAINED STABLE. SHE DOES GET SHORT OF BREATH ON WALKING, ON DOING ANY PHYSICAL WORK, BUT OVERALL SHE IS IMPROVED. Code(s): J44.9 - Chronic obstructive pulmonary disease, unspecified Category: Medical Plan: REDUCE PREDNISONE 5 MG . ON ALTERNATE DAYS IPRATROPIUM-ALBUTEROL SOLUTION IN THE NEBULIZER Q 6 HOURS WHILE AWAKE (TID ) BUDESONIDE 0.5 MG SOLUTION IN THE NEBULIZER B.I.D.. ALBUTEROL HFA 2 PUFFS Q 4-6 HOURS P.R.N. DURING THE DAYTIME (2) Respiratory failure with hypoxia and hypercapnia: Comment: IN ADDITION TO NOCTURNAL AND EXERCISE INDUCED HYPOXEMIA , SHE DOES HAVE HYPERCAPNIA C/W ACUTE ON CHRONIC RESPIRATORY FAILURE. CLINICALLY IT SEEMS TO HAVE IMPROVED. LAST PCO2 53 WILL RECHECK TODAY Code(s): J96.91 - Respiratory failure, unspecified with hypoxia; J96.92 - Respiratory failure, unspecified with hypercapnia Category: Medical Plan: CONTINUE BREATHING EXERCISES WITH PURSED LIP TECHNIQUE EVERY 2 HOURS WHILE AWAKE ACETAZOLAMIDE 250 MG ONCE A DAY O2 2 L/MINUTE (3) Nicotine dependence, cigarettes, uncomplicated: Comment: (Current smoker - onset 23yo, 1ppd x 34yrs, 30pyh) STILL SMOKING 6 CIGARETTES A DAY, SHE IS NOW ON CHANTIX 1 MG B.I.D., HAS BEEN ABLE TO QUIT SMOKING COMPLETELY, . BUT IT REMAINS TO BE SEEN Code(s): F17.210 - Nicotine dependence, cigarettes, uncomplicated Category: Medical Plan: STILL NOT SMOKING. STILL ON CHANTIX 1 MG B.I.D.. Orders: Orders Venous Blood Gas Today J44.9 - Chronic obstructive pulmonary disease, unspecified, J96.91 - Respiratory failure, unspecified with hypoxia, J96.92 - Respiratory failure, unspecified with hypercapnia Medications: New prednisone 5 mg PO Q OTHER DAY 14 tabs 3RF 28 days ipratropium-albuterol 0.5 mg-3 mg(2.5 mg base)/3 mL 3 mL inhalation Q6-8H PRN 270 mL 3RF wheezing 30 days Coding Level of Care Code Est Pt Level 3 (75500) Diagnoses COPD (chronic obstructive pulmonary disease) J44.9 Respiratory failure with hypoxia and hypercapnia J96.91; J96.92 Nicotine dependence, cigarettes, uncomplicated F17.210
--- OUTSIDE RECORDS SUMMARY | 2024-10-05 16:24 | XMS_ITS | Clinical Summary ---
Author Organization [facility] Address [address] [place] [address] Care Team Providers Care Railroad Emergency Services Manager Name Role Phone Gustavo Dias MD Primary Care Provider [phone] Allergies Active Allergy Reactions Criticality Noted Date [...] 111 03/01/2024 3:56 PM EST Temperature 36.9 C (98.4 F) 03/01/2024 3:56 PM EST Respiratory Rate 16 03/01/2024 3:56 PM EST [...] Documents on File Type Date Recorded Patient Molding Line Assistant Expl anation MOLST/POLST 03/03/2024 6:25 AM 4 Care Teams Railroad Emergency Services Manager Relationship Specialty Start Date End Date Gustavo Dias MD [address] [place] [phone] PCP - General Internal Medicine 03/01/24
== END 2024-10-05 13:57 | disposition home or self-care (01) ==
LOC: HO.HPS 13:34
PROVIDERS: PCP Nurse Practitioner Family; Visit Provider Internal Medicine
DX: J44.9 Chronic obstructive pulmonary disease, unspecified (principal); J96.91 Respiratory failure, unspecified with hypoxia; J96.92 Respiratory failure, unspecified with hypercapnia; F17.210 Nicotine dependence, cigarettes, uncomplicated
CPT/HCPCS: 99213

== ENCOUNTER → 2024-10-05 13:33 | Outpatient (BNVA) | payer OTHER, SELFPAY | PROVIDERS: PCP Nurse Practitioner Family; Visit Provider Internal Medicine | DX: J96.12 Chronic respiratory failure with hypercapnia (principal); J44.9 Chronic obstructive pulmonary disease, unspecified; F17.210 Nicotine dependence, cigarettes, uncomplicated | CPT/HCPCS: 99212 ==

== ENCOUNTER 2024-10-12 07:56 | Outpatient (AMB) | payer OTHER, SELFPAY ==
--- OUTSIDE RECORDS SUMMARY | 2024-10-12 07:58 | XMS_ITS | Clinical Summary ---
Author Organization [facility] Address [address] [place] [address] Care Team Providers Care Homicide Squad Commanding Officer Name Role Phone Gustavo Dias MD Primary Care Provider [phone] Allergies Active Allergy Reactions Criticality Noted Date [...] 08/16/2015 Alcohol/Substance Use Screening 04/12/2024 Influenza Vaccine (#1) 2024 RSV Vaccine (60+ years old a nd patients) (1 - 1-dose 75+ series) 2040 Insurance [employer] Advance Directives Documents on File Type Date Recorded Patient Log Operations Coordinator Expl anation MOLST/POLST 03/03/2024 6:25 AM 4 Care Teams Homicide Squad Commanding Officer Relationship Specialty Start Date End Date Gustavo Dias MD [address] [place] [phone] PCP - General Internal Medicine 03/01/24
--- NOTE | 2024-10-12 08:01 | A.OFFPC_ITS ---
Vital Signs 10/12/24 08:02 Height 5 ft 1 in Weight 205 lb BMI 38.7 BP 132/86 Blood Pressure Location Lt brachial Position Sitting Pulse 89 Pulse Source Pulse Oximeter Pulse Oximetry (%) 94 Oxygen Delivery Method Room Air Intake Visit Reasons: follow up/reschedule from 09/28 Commercial Installer Required: No Allergies lansoprazole (Prevacid) Allergy (Severe, Verified 10/12/24 08:02) anaphylaxis cyclobenzaprine (From Flexeril) Allergy (Intermediate, Verified 10/12/24 08:02) Rash Tobacco use date assessed: 06/26/24 Dental Screening Dental Screen Date: 06/26/24 HPI follow up/reschedule from 09/28 HPI Details Chief Complaint The patient presents with concerns regarding recurrent right total hip dislocations and management of COPD. History of Present Illness The patient is a 59-year-old female presenting with recurrent right total hip dislocation and COPD. She underwent a right total hip replacement in April 2024, and since then, has experienced multiple dislocations requiring emergency interventions, including anesthesia for reduction of 1 dislocation. She is scheduled for a follow-up with orthopedics, where a revision surgery has been suggested, though she is hesitant. The patient has COPD and continues to smoke, despite pulmonary care and low-dose CT scans for lung cancer screening. She refuses mammograms and has not completed a previously sent Cologuard test, although she plans to do so in the future. Obesity is a concern, and she has been advised to lose weight to benefit her hip condition and respiratory health. Social History - Smoking: Continues to smoke despite angelo ving COPD - Weight management: Advised to work on weight loss to improve hip and respiratory health Health Maintenance - Lung cancer screening: Undergoes low-d ose CT scans - Colon cancer screening: Cologuard test to be completed in the future - Mammograms: Refuses to undergo mammogr ams Review of Systems - Musculoskeletal: Reports pain in the r ight hip region - Respiratory: Reports smoking, denies c essation attempts Physical Exam General: Cooperative, healthy appearing, comfortable, no acute distress and well developed, morbid obesity Orientation: Patient oriented x3 Limitations: No limitations Head: Normal to inspection Ears: Hearing grossly normal bilaterally Nose: Normal external nose present Face and sinus: Normal facial exam Eyes: Appearance normal, both eyes and all related structures Neck: Normal visual inspection and Yes full ROM Respiratory: Expiratory wheezes noted throughout, able to speak in complete sentences. Clear to auscultation bilaterally Cardiovascular: Regular rate and rhythm. Normal S1 and S2, no carotid bruits noted GI: Normal to inspection. Soft to palpation and nontender Skin: No rashes or lesions noted Neuro: Patient oriented x3 Extremities: Full range of motion to bilateral lower extremities with gait, though pain reported to right hip region. Positive dorsalis pedis to right foot Results Plan The patient will continue to follow up with orthopedics regarding her recurrent right total hip dislocation, with a possible revision surgery being considered. She is advised to consider the benefits and risks of undergoing another procedure, particularly concerning anesthesia. For COPD management, the patient is encouraged to cease smoking and continue with pulmonary care, including low-dose CT scans for lung cancer screening. She is also advised to complete the Cologuard test for colon cancer screening. Weight loss is recommended to alleviate stress on her hips and improve respiratory function. Discussion Notes I discussed with the patient the possibility of a revision surgery for her recurrent right total hip dislocation, emphasizing the potential benefits and risks, particularly regarding anesthesia. We also reviewed her COPD management, highlighting the importance of smoking cessation and adherence to pulmonary care, including regular low-dose CT scans. I advised her to complete the Cologuard test for colon cancer screening and encouraged weight loss to improve her overall health. Patient Instructions - Follow up with orthopedics for hip dis location management. - Consider the risks and benefits of pot ential revision surgery. - Stop smoking to improve lung health. - Complete the Cologuard test for colon cancer screening. - Work on weight loss to help with hip a nd breathing issues. [facility] Medical History COPD (chronic obstructive pulmonary disease) Respiratory failure with hypoxia and hypercapnia Pulmonary edema Resides in custodial facility Heart failure with preserved ejection fraction Substance abuse Acute exacerbation of chronic obstructive pulmonary disease Lumbar spondylosis Trochanteric bursitis of right hip Obesity Nicotine dependence, cigarettes, uncomplicated History of sepsis Urinary frequency COPD (chronic obstructive pulmonary disease) Exercise hypoxemia Smoker Bilateral hip pain Dyslipidemia Lower back pain Anxiety associated with depression Somatic dysfunction of left sacroiliac joint Surgical History S/P total right hip arthroplasty History of section Family History Father Substance use disorder Mother Substance use disorder Mental health disorder Maternal Grandmother Substance use disorder Mental health disorder Social History Household Members: Spouse Housing: House Housing Other:: currently @ [facility] for rehab Are you a primary healthcare administrative assistant to a significant other at home: No Do you presently have visiting nurse or other home services: No Unable to assess alcohol history related to: Unable to respond Alcohol intake: former Patient Tobacco Use Status: Former Tobacco user Tobacco use type: Cigarette Cigarette Packs Per Day: 0.5 Cigarettes Per Day: 2 Years Smoked: 30 e-Cigarette/Vaping Use: Never Used Second Hand Smoke Exposure: No Substance Use Type: Crack/Cocaine service: No Current occupational status: employed Current occupation: [employer] Cognitive needs: No Hearing needs: No Vision needs: No Questionnaire Thrive Questionnaire Date Thrive assessed: 06/26/24 I am a: Patient What is your living situation today?: I have a place to live, but I am worried about losing it in the future Within the past 12 months, did the food you bought not last and you didn't have the money to get more?: Sometimes True Within the past 12 months, did you worry whether your food would run out before you got money to buy more?: Often true Do you have trouble paying for medicines?: Yes Do you have trouble getting transportation to medical appointments?: No Do you have trouble paying your heating and electricity bill?: Yes Do you have trouble taking care of your child, family member or friend?: No Do you have trouble with day-to-day activities such as bathing, preparing meals, shopping, managing finances, etc.?: I choose not to answer this question Are you currently unemployed and looking for a job?: No Are you interested in more education?: No THRIVE Score: 4 DAI-7 AMB Questionnaire DAI-7 Date DAI - 7 assessed: 06/26/24 Source: Developed by Drs. Neel Lazaro, Marilee Stanley, Antonio Rodriguez and colleagues, with an educational willie from [employer]. Physical exam (Primary Care) Vital Signs: Last Vital Signs Pulse 89 10/12/24 08:02 BP 132/86 10/12/24 08:02 Pulse Ox 94 10/12/24 08:02 Oxygen Delivery Method Room Air 10/12/24 08:02 BMI result Body Mass Index 38.7 Tobacco/Smoking Status: Tobacco use Status Tobacco use date assessed 06/26/24 10/12/24 08:02 Patient Tobacco Use Status Former Tobacco user 10/12/24 08:02 Tobacco use type Cigarette 10/12/24 08:02 e-Cigarette/Vaping Use Never Used 10/12/24 08:02 Thrive Assessment: Date of Thrive Assessment Date Thrive assessed 06/26/24 10/12/24 08:02 Coding Level of Care Code Est Pt Level 3 (70613) Diagnoses S/P total right hip arthroplasty Z96.641 Dislocation of prosthesis of right hip joint T84.020A COPD with exacerbation J44.1 Assessment & Plan Assessment & Plan (1) S/P total right hip arthroplasty: Code(s): Z96.641 - Presence of right artificial hip joint Category: Surgical (2) Dislocation of prosthesis of right hip joint: Code(s): T84.020A - Dislocation of internal right hip prosthesis, initial encounter Category: Medical (3) COPD with exacerbation: Code(s): J44.1 - Chronic obstructive pulmonary disease with (acute) exacerbation Category: Medical Plan . Orders: Referrals Cologuard Test Z12.11 - Encounter for screening for malignant neoplasm of colon, Z12.12 - Encounter for screening for malignant neoplasm of rectum
[2024-10-12 08:02] VITALS: BP 132/86; PULSE 89; O2SAT 94; BMI 38.7
== END 2024-10-12 08:41 | disposition home or self-care (01) ==
LOC: HO.HMCC 07:56
PROVIDERS: PCP Nurse Practitioner Family; Visit Provider Nurse Practitioner Family
DX: Z96.641 Presence of right artificial hip joint (principal); T84.020A Dislocation of internal right hip prosthesis, initial encounter; J44.1 Chronic obstructive pulmonary disease with (acute) exacerbation

== ENCOUNTER → 2024-10-12 07:56 | Outpatient (BNVA) | payer OTHER, SELFPAY | PROVIDERS: PCP Nurse Practitioner Family; Visit Provider Nurse Practitioner Family | DX: J44.1 Chronic obstructive pulmonary disease with (acute) exacerbation (principal); F17.210 Nicotine dependence, cigarettes, uncomplicated; E66.9 Obesity, unspecified; T84.020A Dislocation of internal right hip prosthesis, initial encounter; X58.XXXA Exposure to other specified factors, initial encounter; Y93.9 Activity, unspecified; Y92.9 Unspecified place or not applicable; Y99.9 Unspecified external cause status; Z68.38 Body mass index [BMI] 38.0-38.9, adult | CPT/HCPCS: 99212 ==

== ENCOUNTER 2024-10-19 20:23 | Emergency (ER) | payer OTHER, SELFPAY ==
--- NOTE | ~2024-10-19 | XR_ITS ---
CLINICAL HISTORY: pain, ? dislocation 6 view, pelvis and right hip Comparison: CR/SR - XR PELVIS 1-2V - 09/21/24 07:41 EDT Findings: Redemonstrated right total hip arthroplasty. Superolateral displacement of the femoral stem relative to the acetabular cup. No acute fracture. Lateral soft tissue swelling. Osteopenia with degenerative changes throughout the pelvis and left hip. The soft tissues are unremarkable. IMPRESSION: MAMADOU with dislocated femoral stem. This document has been electronically signed by: Hudson Nelson MD on 10/19/2024 23:38:51
--- NOTE | ~2024-10-19 | XR_ITS ---
CLINICAL HISTORY: POST REDUCTION 1 view, right hip Comparison: CR - XR HIP RT W PEL1V - 10/19/24 23:00 EDT Findings: No acute fracture. Interval relocation of the femoral stem of the total hip arthroplasty. Hardware is intact, alignment is maintained. Regional soft tissue swelling. IMPRESSION: Interval relocation femoral stem of the right MAMADOU. This document has been electronically signed by: Hudson Nelson MD on 10/20/2024 01:23:57
[2024-10-19 20:37] VITALS: BP 148/94; BP 174/123; PULSE 104; PULSE 111; RESP 20; TEMP 36.1; O2SAT 85; O2SAT 90; BMI 38.7
[2024-10-19 21:57] VITALS: BP 141/90; PULSE 104; RESP 22; TEMP 37; O2SAT 90
--- NOTE | 2024-10-19 22:41 | ED_ITS ---
HPI - Extremity Injury (Lower) General Chief Complaint: Extremity Injury, Lower Stated Complaint: R hip pain Time Seen by Provider: 10/19/24 22:18 Source: patient and EMS Mode of arrival: EMS Limitations: no limitations History of Present Illness ED Provider: Dr. Kimi Santiago HPI Narrative: Patient comes to the emergency room complaining of right-sided hip pain. This is the 6th time that patient dislocated her hip. Patient is aware that she needs surgery revision for her hip replacement. Patient is aware that orthopedics have been asking to see here in the office. Patient states that earlier today she was at work, pushing a wheelchair and she stepped awkwardly and her hip popped out of place. Related Data Home Medications ?Medication ?Instructions ?Recorded ?Confirmed docusate sodium 100 mg capsule 100 mg PO BID PRN Const ipation 07/09/24 10/05/24 fluticasone propionate 50 1 spray intranasal Q12H PRN 07/09/24 10/05/24 mcg/actuation nasal Allergy Symptoms spray,suspension celecoxib 200 mg capsule 200 mg PO BID 09/20/2410/05 furosemide 20 mg tablet 40 mg PO DAILY 09/20/2409/11 Previous Rx's ?Medication ?Instructions ?Recorded walker #1 ea 03/30/24 acetaminophen 325 mg tablet 650 mg (2 x 325 mg) PO Q6H PRN 05/05/24 Pain, Mild 1-3,Fever,Headache 30 days #240 tabs clonidine HCl 0.1 mg tablet 0.1 mg PO TID 90 days #270 tabs 06/26/24 nicotine (polacrilex) 4 mg gum 4 mg buccal Q2H PRN chelsea otine 06/26/24 cravings #100 ea trazodone 50 mg tablet 50 mg PO BEDTIME PRN sleep # 30 tabs 06/26/24 albuterol sulfate 90 mcg/actuation 2 puff inhalation Q 6H PRN 08/14/24 aerosol inhaler (Ventolin HFA) shortness of breath or wheezing #8.5 grams ipratropium 0.5 mg-albuterol 3 mg 3 ml inhalation RQ4H WHILE AWAKE 08/19/24 (2.5 mg base)/3 mL nebulization PRN shortness of breat h or soln wheezing #90 mL budesonide 0.5 mg/2 mL suspension 0.5 mg (2 mL) inhala tion BID copd 08/23/24 for nebulization ,severe 30 days #120 mL baclofen 10 mg tablet 10 mg PO BID PRN muscle spas ms 30 08/26/24 days #60 tabs gabapentin 600 mg tablet 600 mg PO TID 30 days #90 ta bs 08/26/24 venlafaxine 150 mg 150 mg PO BID #180 caps 08/10 11/03 capsule,extended release 24 hr acetazolamide 250 mg tablet 250 mg PO DAILY RESPIRATOR Y 09/07/24 FAILURE 30 days #30 tabs oxycodone 5 mg tablet 5 mg PO Q4H PRN Pain, Moderate(Pain Scale 4-6) 7 days #42 tabs ipratropium 0.5 mg-albuterol 3 mg 3 ml inhalation Q6-8 H PRN wheezing 10/05/24 (2.5 mg base)/3 mL nebulization 30 days #270 mL soln prednisone 5 mg tablet 5 mg PO Q OTHER DAY 28 days #14 10/05/24 tabs varenicline tartrate 1 mg tablet 1 mg PO BID #56 tabs 10/10/24 (Chantix) prednisone 50 mg tablet 50 mg PO DAILY #4 tabs 10/20 Allergies Allergy/AdvReac Type Severity Reaction Status Date / Time lansoprazole (Prevacid) Allergy Severe anaphylaxis Verified 10/19/24 20:44 cyclobenzaprine (From AdvReac Intermediate Rash Verified 10/19/24 20:44 Flexeril) Review of Systems Review of Systems: Constitutional : No Weight loss, No Fever, No Chills, No Night Sweats, No Fatigue, No Malaise ENT/Mouth : No Hearing loss, No Ear Pain, No Nasal Congestion, No Sinus Pain, No Hoarseness, No sore throat, No Rhinorrhea, No Swallowing Difficulty Eyes: No Eye Pain, No Swelling, No Redness, No Foreign Body, No Discharge, No Vision Changes Cardiovascular : No Chest Pain, No SOB, No Dyspnea on Exertion, No Orthopnea, No Edema, No Palpitations Respiratory : No Cough, No Sputum, No Wheezing, No Smoke Exposure, No Dyspnea Gastrointestinal : No Nausea, No Vomiting, No Diarrhea, No Constipation, No abdominal Pain, No Hematochezia, No Melena Genitourinary : no irregular bleeding, No Dysuria, No Urinary Frequency, No Hematuria, No Urinary Incontinence, No Urgency, No Flank Pain, No Urinary Flow Changes, No Hesitancy Musculoskeletal complaining of right hip pain and dislocation, No Myalgias, No Joint Swelling Skin : No Skin Lesions, No rash Neuro : No Weakness, No Numbness, No Paresthesias, No Loss of Consciousness, No Dizziness, No Headache Psych : No Anxiety/Panic, No Depression, No SI/HI/AH/VH, No Social Issues, Heme/Lymph: No Bruising, No Bleeding,No Lymphadenopathy Endocrine : No Polyuria, No Polydipsia, No Temperature Intolerance COUNT INCLUDES THE [facility] Past Medical History Medical History COPD (chronic obstructive pulmonary disease) Respiratory failure with hypoxia and hypercapnia Pulmonary edema Resides in senior living facility Heart failure with preserved ejection fraction Substance abuse Acute exacerbation of chronic obstructive pulmonary disease Lumbar spondylosis Trochanteric bursitis of right hip Obesity Nicotine dependence, cigarettes, uncomplicated History of sepsis Urinary frequency COPD (chronic obstructive pulmonary disease) Exercise hypoxemia Smoker Bilateral hip pain Dyslipidemia Lower back pain Anxiety associated with depression Somatic dysfunction of left sacroiliac joint Surgical History S/P total right hip arthroplasty History of section Family History Family History Father Substance use disorder Mother Substance use disorder Mental health disorder Maternal Grandmother Substance use disorder Mental health disorder Social History Social History Household Members: Spouse Housing: House Housing Other:: currently @ [facility] for rehab Are you a primary care manager to a significant other at home: No Do you presently have visiting nurse or other home services: No Unable to assess alcohol history related to: Unable to respond Alcohol intake: former Patient Tobacco Use Status: Former Tobacco user Tobacco use type: Cigarette Cigarette Packs Per Day: 0.5 Cigarettes Per Day: 2 Years Smoked: 30 Smoked in Last 30 Days: No e-Cigarette/Vaping Use: Never Used Second Hand Smoke Exposure: No Use of substances other than those prescribed or required for medical reasons: No Substance Use Type: Crack/Cocaine Advance Directives: No Advance Directives Information Provided: No Patient : No service: No Current occupational status: employed Current occupation: [employer] Cognitive needs: No Hearing needs: No Vision needs: No Physical Exam Vital Signs: Vital Signs: Last Vital Signs Temp 98.1 F 10/20/24 00:39 Pulse 103 H 10/20/24 00:54 Resp 16 10/20/24 00:54 BP 133/90 H 10/20/24 00:54 Pulse Ox 90 L 10/20/24 00:54 O2 Del Method Nasal Cannula 10/19/24 21:57 Oxygen Flow Rate 3 10/20/24 00:54 BMI result Body Mass Index 38.7 Const: Other: Appearance: Alert. Oriented X3. No acute distress. Eyes: Pupils equal, round and reactive to light. ENT: Pharynx normal. Neck: Normal inspection. Neck supple. No lymph nodes noted. No crepitus CVS: Normal heart rate and rhythm. Pulses normal. Normal S1 and S2 Respiratory: No respiratory distress. Breath sounds normal. No Wheezing. No rales Abdomen: Soft and nontender. No rigidity. No distention. Skin: Skin warm and dry. Normal skin color. Normal skin turgor. Extremities: No lower extremity edema. Patient's right leg is externally rotated and shortened. Can not flex due to pain. Neuro: Oriented X 3. No motor deficit. No sensory deficit. Moving all extremities. No slurred speech. CN 2 through 12 grossly intact Psych: calm, cooperative, normal affect Course Course Course Narrative: Patient receiving IV Dilaudid while we get set up for the reduction. The last time that they took care of the patient to reduce her hip, patient needed a significant amount of propofol. Patient needed at least 150 mg initially +50 more, total of 200 mg. Patient has signed the consent, respiratory therapist we will be at bedside According to the patient, the last time that she ate was a proximally 6-1/2 hours ago the last time that she had any fluid was 6 hours ago Medications Administered Discontinued Medications Generic Name Dose Route Start Last Admin Trade Name Freq PRN Reason Stop Dose Admin Albuterol Sulfate 2.5 mg 10/20/24 00:00 10/20/24 00:09 Albuterol Sulfate (0.083%) 2.5 Mg/3 Ml Vial.Neb INHALE 10/20/24 00:01 2.5 mg ONCE ONE Administration Hydromorphone HCl 1 mg 10/19/24 22:24 10/19/24 23:23 Hydromorphone Hcl 1 Mg/Ml Syringe IVPUSH 10/19/24 22:25 1 mg ONCE ONE Administration Protocol Magnesium Sulfate 2 gm in 50 mls @ 25 mls/hr 10/20/24 00:29 10/20/24 02:38 Magnesium Sulfate/H2o IV 10/20/24 02:28 Infused ONCE ONE Infusion Methylprednisolone Sodium Succinate 125 mg 10/20/24 00:29 10/20/24 00:34 Methylprednisolone Sod Succ 125 Mg/2 Ml Vial IVPUSH 10/20/24 00:30 125 mg ONCE ONE Administration Propofol 100 mg 10/19/24 22:24 10/19/24 23:47 Propofol 200 Mg/20 Ml Vial IVPUSH 10/19/24 22:25 100 mg ONCE ONE Administration Medical Decision Making Medical Decision Making MDM Narrative: Patient received 100 mg of propofol, patient was sedated adequately. Initially, the kept in Tee maneuver was attempted, however it was unsuccessful. Then, the Allis technique was attempted and successfully reduced to the right hip. Patient tolerated well the procedure at the sedation. Upon waking up, patient's seems a bit wheezy, patient does have history of COPD, patient was given 1 neb treatment of albuterol. Patient will also given IV Solu-Medrol and 2 g of magnesium. Patient states that she does not want to use a knee brace or any kind of brace. No crutches. However, patient states that this time she will follow over recommendations and will follow-up with orthopedics, this is the 6th time that her hip dislocate Patient received multiple nebulization treatments, Solu-Medrol, magnesium. Patient is still wheezy, pretty tight. Patient's oxygen saturation is 89% on 2 L. Patient states that that is her baseline. However, when patient moves around her bed her oxygen drops to the mid 80s. I discussed with the patient that I recommend getting labs done and admitting her to the hospital. Patient states that she does not want to be admitted. Patient requesting that we sent t o her pharmacy a script for prednisone, states that she has enough inhalers at home and neb treatments. Patient promises that if she has any difficulty breathing, she will return. However, patient states that there is no way that we will convince her to stay in the hospital Differential Diagnosis Differential Diagnoses: The differential diagnosis associated with the presentation includes (Hip fracture, dislocation, contusion) Admission/Observation Consideration of admission/observation: Escalation of care including admission/observation considered (Given patient's repeated history of dislocation, observation/admission was considered. Also, given her low oxygen saturation even on oxygen, I recommended admission) Independent Interpretation I performed an independent interpretation of an: Plain X-Ray Radiology Impression Discussion of test interpretation with radiology: I have reviewed the radiologist's reading. Radiologist Impression: No acute fracture. Interval relocation of the femoral stem of the total hip arthroplasty. Hardware is intact, alignment is maintained. Regional soft tissue swelling. IMPRESSION: Interval relocation femoral stem of the right MAMADOU. Procedures Orthopedic Joint Reduction Joint #1: Time Out Performed: Yes Side: right Joint Reduction Location: hip Analgesia: procedural sedation (100 mg of propofol) Technique used: other (Kept in Tee and Allis) Post-reduction neuro exam: intact Post-reduction vascular: intact Post Reduction X-Ray Obtained: Yes Post Reduction X-Ray Results: reduced Splint Applied: No Patient Tolerated Procedure: well Critical Care Time Critical Care Time Critical Care Time: Yes Total Critical Care Time: 75 Attestation: I have personally provided critical care time. Time includes review of lab data, radiology results, discussion with consultants, and monitoring for potential decompensation. Intervention performed as documented. Discharge Plan Discharge Clinical Impression: Dislocated hip, Chronic lung disease Patient Disposition: Home, Self-Care Instructions: Hip Dislocation (ED), How Your Lungs Work (ED) Additional Instructions: This is the 6th time that your hip dislocates. Please, please, please follow-up with orthopedics. Please follow-up with your primary care physician tomorrow. If you have any worsening or new symptoms, please return to the emergency room or call 911 Prescriptions: New prednisone 50 mg tablet 50 mg PO DAILY Qty: 4 0RF No Action (DME) walker Misc See Rx Instructions .MEDSUPPLY Qty: 1 0RF Rx Instructions: Folding Front wheeled walker duration 99 days ipratropium-albuterol 0.5 mg-3 mg(2.5 mg base)/3 mL solution for nebulization 3 ml inhalation RQ4H WHILE AWAKE PRN (Reason: shortness of breath or wheezing) Qty: 90 0RF gabapentin 600 mg tablet 600 mg PO TID 30 Days Qty: 90 3RF baclofen 10 mg tablet 10 mg PO BID PRN (Reason: muscle spasms) 30 Days Qty: 60 3RF venlafaxine 150 mg capsule,extended release 24hr 150 mg PO BID Qty: 180 1RF varenicline tartrate [Chantix] 1 mg tablet 1 mg PO BID Qty: 56 0RF docusate sodium 100 mg capsule 100 mg PO BID PRN (Reason: Constipation) fluticasone propionate 50 mcg/actuation spray,suspension 1 spray intranasal Q12H PRN (Reason: Allergy Symptoms) acetaminophen 325 mg Tablet 650 mg PO Q6H PRN (Reason: Pain, Mild 1-3,Fever,Headache) 30 Days Qty: 240 0RF celecoxib 200 mg capsule 200 mg PO BID furosemide 20 mg tablet 40 mg PO DAILY Protocol: Hold for SBP< HOLD for SBP < : 90 oxycodone 5 mg Tablet 5 mg PO Q4H PRN (Reason: Pain, Moderate(Pain Scale 4-6)) 7 Days Qty: 42 0RF Rx Instructions: Partial Fill upon patient request. albuterol sulfate [Ventolin HFA] 90 mcg/actuation HFA aerosol inhaler 2 puff inhalation Q6H PRN (Reason: shortness of breath or wheezing) Qty: 8.5 4RF ipratropium-albuterol 0.5 mg-3 mg(2.5 mg base)/3 mL solution for nebulization 3 ml inhalation Q6-8H PRN (Reason: wheezing) 30 Days Qty: 270 3RF prednisone 5 mg tablet 5 mg PO Q OTHER DAY 28 Days Qty: 14 3RF clonidine HCl 0.1 mg tablet 0.1 mg PO TID 90 Days Qty: 270 1RF trazodone 50 mg tablet 50 mg PO BEDTIME PRN (Reason: sleep) Qty: 30 3RF nicotine (polacrilex) 4 mg gum 4 mg buccal Q2H PRN (Reason: nicotine cravings) Qty: 100 0RF acetazolamide 250 mg tablet 250 mg PO DAILY 30 Days Qty: 30 3RF budesonide 0.5 mg/2 mL suspension for nebulization 0.5 mg inhalation BID 30 Days Qty: 120 3RF Referrals: Kamaljit Sweeney MD [Physician, Orthopedics] Print Language: Grenadian
[2024-10-19 23:23] VITALS: RESP 31
[2024-10-19 23:45] VITALS: PULSE 92; RESP 16; TEMP 36.7; O2SAT 92
[2024-10-19 23:54] VITALS: BP 140/96; PULSE 103; RESP 9; O2SAT 99
[2024-10-19 23:59] VITALS: BP 138/87; PULSE 100; RESP 12; O2SAT 90
[2024-10-20] VITALS (7 sets, daily range): BP systolic 133–165; BP diastolic 85–105; PULSE 101–105; RESP 9–21; TEMP 36.7; O2SAT 84–98
[2024-10-20] MEDS: Albuterol Sulfate (0.083%) 2.5 MG/3 ML VIAL.NEB INHALE (00:09)
[2024-10-20] MEDS: Magnesium Sulfate/H2O 2 GM/50 ML PIGGYBACK IV (00:35)
[2024-10-20] MEDS: Albuterol Sulfate 5 MG, Albuterol/Iprat 2.5/0.5MG 3 ML 3 ML INHALE (03:23)
== END 2024-10-20 03:38 | disposition home or self-care (01) ==
PROVIDERS: Emergency Provider Emergency Medicine; PCP Internal Medicine
DX: M24.451 Recurrent dislocation, right hip (principal); M25.551 Pain in right hip; J44.9 Chronic obstructive pulmonary disease, unspecified; Z87.891 Personal history of nicotine dependence; Z79.899 Other long term (current) drug therapy
CPT/HCPCS: 27265; 73501; 73502; 94640; 96365; 96366; 96375; 99152; 99284; 99291; 99292; J1171; J2704; J2919; J3475

== ENCOUNTER → 2024-10-19 22:00 | Outpatient (BNV) | payer OTHER, SELFPAY | PROVIDERS: Emergency Provider Emergency Medicine; PCP Internal Medicine; Visit Provider Radiology Diagnostic Radiology | DX: T84.020A Dislocation of internal right hip prosthesis, initial encounter (principal); Z96.641 Presence of right artificial hip joint | CPT/HCPCS: 73501; 73502 ==

== ENCOUNTER 2024-10-23 09:35 | Outpatient (AMB) | payer OTHER, SELFPAY ==
--- NOTE | 2024-10-23 09:43 | MHC.OFFVIS ---
Vital Signs 10/23/24 09:46 Height 5 ft 1 in Weight 202 lb 13.204 oz BMI 38.3 BP 140/80 H Blood Pressure Location Lt brachial Position Sitting Respiration 16 Pulse 96 Pulse Source Pulse Oximeter Pulse Oximetry (%) 94 Oxygen Delivery Method Room Air Intake Visit Reasons: shortness of breath Avionics Systems Integration Specialist Required: No Accompanied by: Self / Same As Patient Allergies lansoprazole (Prevacid) Allergy (Severe, Verified 10/23/24 09:54) anaphylaxis cyclobenzaprine (From Flexeril) Adverse Reaction (Intermediate, Verified 10/23/24 09:54) Rash Do you need a note to return to daycare/school/sports/work: No HPI HPI shortness of breath: Details: TRACIE IS HERE FOR , POST EMERGENCY ROOM FOLLOW-UP. ON 10/19 SHE WAS IN THE EMERGENCY ROOM DUE TO DISLOCATION OF THE RIGHT HIP. THE HIP WAS REDUCED RIGHT IN THE ER AND SHE WAS TREATED FOR A MILD ACUTE EXACERBATION OF COPD WITH IV SOLU-MEDROL FOLLOWED BY [facility]AL PREDNISONE FOR A FEW DAYS. SHE HAS COMPLETED THE COURSE OF PREDNISONE AND TODAY HERE SHE COMES FOR FOLLOW-UP. AT THIS TIME HER RESPIRATORY STATUS IS VERY STABLE AND SHE CAME WALKING EVEN WITHOUT THE OXYGEN. NORMALLY SHE HAS REMAINED VERY ALERT WITHOUT ANY CHANGE IN THE MENTAL STATUS. SHE HAS BEEN TAKING ACETAZOLAMIDE, 250 B.I.D., PREDNISONE 5 MG Q ALTERNATE DAYS, REMAINS ON BUDESONIDE SOLUTION IN THE NEBULIZER B.I.D., USES IPRATROPIUM-ALBUTEROL SOLUTION IN THE NEBULIZER Q 6 HOURS WHILE AWAKE, AND USES VENTOLIN 2 PUFFS Q 6 HOURS P.R.N.. SHE USES O2 2 L/MINUTE 24 HOURS A DAY EXCEPT FOR SHORT BREAKS WHEN SHE HAS TO GO OUTDOORS, ( SHE DOES NOT LIKE TO CARRY THE HEAVY PORTABLE POC. AND IS LOOKING FOR A LIGHTWEIGHT INOGEN POC. [facility] Medical History COPD (chronic obstructive pulmonary disease) Respiratory failure with hypoxia and hypercapnia Pulmonary edema Resides in [facility] facility Heart failure with preserved ejection fraction Substance abuse Acute exacerbation of chronic obstructive pulmonary disease Lumbar spondylosis Trochanteric bursitis of right hip Obesity Nicotine dependence, cigarettes, uncomplicated History of sepsis Urinary frequency COPD (chronic obstructive pulmonary disease) Exercise hypoxemia Smoker Bilateral hip pain Dyslipidemia Lower back pain Anxiety associated with depression Somatic dysfunction of left sacroiliac joint Surgical History S/P total right hip arthroplasty History of section Family History Father Substance use disorder Mother Substance use disorder Mental health disorder Maternal Grandmother Substance use disorder Mental health disorder Social History Household Members: Spouse Housing: House Housing Other:: currently @ [facility] for rehab Are you a primary special needs caregiver to a significant other at home: No Do you presently have visiting nurse or other home services: No Unable to assess alcohol history related to: Unable to respond Alcohol intake: former Patient Tobacco Use Status: Former Tobacco user Tobacco use type: Cigarette Cigarette Packs Per Day: 0.5 Cigarettes Per Day: 2 Years Smoked: 30 e-Cigarette/Vaping Use: Never Used Second Hand Smoke Exposure: No Substance Use Type: Crack/Cocaine service: No Current occupational status: employed Current occupation: [employer] Cognitive needs: No Hearing needs: No Vision needs: No Review of Systems Const All systems reviewed & are unremarkable except as noted in HPI and below Eyes Reports no additional complaints ENT Reports no additional complaints Card Denies chest pain, Denies irregular heart rhythm and Reports dyspnea on exertion Resp Reports as per HPI, Reports dyspnea on exertion and Denies wheezing GI Reports no additional complaints Reports no additional complaints Musc Reports back pain, Reports myalgias and Reports arthralgias (Painful right hip and has difficulty in standing and walking) Skin/Breast Reports system reviewed and no additional complaints, except as documented Neuro Reports no additional complaints Psych Reports anxiety Endo Reports no additional complaints Aller/Immun Denies wheezing Physical Exam Vital Signs: Last Vital Signs Pulse 96 10/23/24 09:46 Resp 16 10/23/24 09:46 BP 140/80 H 10/23/24 09:46 Pulse Ox 94 10/23/24 09:46 Oxygen Delivery Method Room Air 10/23/24 09:46 BMI result Body Mass Index 38.3 Const General: comfortable, no acute distress, alert and awake Orientation/consciousness: patient oriented x3 HEENT Head: Yes normal to inspection General nose exam: No nasal polyps present and No nasal discharge present Face and sinus: Yes sinuses nontender Mouth: oropharynx normal (MUCOSA IS DRY AND SLIGHTLY REDDISH, NO EXUDATES) Throat: Yes posterior oropharynx normal Eyes General: appearance normal, both eyes and all related structures Neck Neck: Yes normal visual inspection, Yes no lymphadenopathy, Yes trachea midline and Yes no JVD Thyroid: Thyroid normal Chest Chest palpation & inspection: normal inspection of the chest, normal palpation of entire chest wall and no tenderness Resp Other: PERCUSSION NOTE IS RESONANT, BREATH SOUNDS ARE DISTANT BUT EQUAL ON BOTH SIDES. NO WHEEZES RHONCHI OR CREPITATIONS ARE HEARD . Cardio Palpation: normal PMI Rate: regular rate Rhythm: regular rhythm Heart sounds: no gallops and no murmurs Peripheral pulses: Peripheral pulses 2+ throughout GI Palpation (GI): Soft to palpation, nontender, No hepatosplenomegaly present and no masses Auscultation: normal bowel sounds Back/Spine/Pelvis Thoracic/Lumbar Spine: thoracic and lumbar spine normal to inspection Skin General skin exam: no rashes or lesions noted Neuro General: patient oriented x3 and no focal motor deficits Cranial nerves: Yes CN's II-XII intact bilaterally Extrem General: No normal to inspection (Patient is in wheelchair and not able to stand or walk due to severe pain. ), Yes no clubbing, cyanosis or edema and Yes no calf tenderness Psych Appearance: grossly normal and well kempt Speech and movement: Normal speech and movement present Results Reviewed Results Reviewed: [facility] Assessment & Plan Assessment & Plan (1) COPD (chronic obstructive pulmonary disease): Comment: THIS PATIENT IS A KNOWN CASE OF ADVANCED CHRONIC OBSTRUCTIVE PULMONARY DISEASE. DEFINITELY RELATED TO HER LIFELONG SMOKING. RECENTLY HAS BEEN TREATED AT [facility] AND THEN AT [facility] FOR A FEW DAYS, SHE DID HAVE HYPERCAPNIA WHICH IMPROVED AFTER USE OF BIPAP. AT HOME JUST USING O2 2 L/MINUTE AT NIGHT AND PRN DURING THE DAYTIME. RESPIRATORY STATUS IS STABLE AND ALSO MENTAL STATUS HAS REMAINED STABLE. SHE DOES GET SHORT OF BREATH ON WALKING, ON DOING ANY PHYSICAL WORK, BUT OVERALL SHE IS IMPROVED. Code(s): J44.9 - Chronic obstructive pulmonary disease, unspecified Category: Medical Plan: ADVISED TO CONTINUE THE PRESENT REGIMEN (2) Nicotine dependence, cigarettes, uncomplicated: Comment: (Current smoker - onset 23yo, 1ppd x 34yrs, 30pyh) STILL SMOKING 6 CIGARETTES A DAY, SHE IS NOW ON CHANTIX 1 MG B.I.D., HAS BEEN ABLE TO QUIT SMOKING COMPLETELY, . BUT IT REMAINS TO BE SEEN Code(s): F17.210 - Nicotine dependence, cigarettes, uncomplicated Category: Medical Plan: COMMENDED FOR NOT SMOKING. CONTINUE CHANTIX AND NICOTINE 4 MG BUCCAL LOZENGE P.R.N. (3) Respiratory failure with hypoxia and hypercapnia: Comment: IN ADDITION TO NOCTURNAL AND EXERCISE INDUCED HYPOXEMIA , SHE DOES HAVE HYPERCAPNIA C/W ACUTE ON CHRONIC RESPIRATORY FAILURE. CLINICALLY IT SEEMS TO HAVE IMPROVED. Code(s): J96.91 - Respiratory failure, unspecified with hypoxia; J96.92 - Respiratory failure, unspecified with hypercapnia Category: Medical Plan: VENOUS BLOOD GAS AND ELECTROLYTES REPEATED Orders: Orders Venous Blood Gas Today J96.91 - Respiratory failure, unspecified with hypoxia, J96.92 - Respiratory failure, unspecified with hypercapnia Coding Level of Care Code Est Pt Level 3 (57788) Diagnoses COPD (chronic obstructive pulmonary disease) J44.9 Nicotine dependence, cigarettes, uncomplicated F17.210 Respiratory failure with hypoxia and hypercapnia J96.91; J96.92
[2024-10-23 09:46] VITALS: BP 140/80; PULSE 96; RESP 16; O2SAT 94; BMI 38.3
--- OUTSIDE RECORDS SUMMARY | 2024-10-23 10:03 | XMS_ITS | Clinical Summary ---
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
== END 2024-10-23 10:34 | disposition home or self-care (01) ==
LOC: HO.HPS 09:36
PROVIDERS: PCP Internal Medicine; Visit Provider Internal Medicine
DX: J44.9 Chronic obstructive pulmonary disease, unspecified (principal); F17.210 Nicotine dependence, cigarettes, uncomplicated; J96.91 Respiratory failure, unspecified with hypoxia; J96.92 Respiratory failure, unspecified with hypercapnia
CPT/HCPCS: 99213

== ENCOUNTER → 2024-10-23 09:35 | Outpatient (BNVA) | payer OTHER, SELFPAY | PROVIDERS: PCP Internal Medicine; Visit Provider Internal Medicine | DX: J96.92 Respiratory failure, unspecified with hypercapnia (principal); J96.91 Respiratory failure, unspecified with hypoxia; J44.9 Chronic obstructive pulmonary disease, unspecified; F17.210 Nicotine dependence, cigarettes, uncomplicated | CPT/HCPCS: 99212 ==

== ENCOUNTER 2024-11-02 13:00 | Outpatient (REF) | payer OTHER, SELFPAY ==
--- NOTE | ~2024-11-02 | XR_ITS ---
EXAMINATION: XR HIP, RIGHT CLINICAL INFORMATION: M25.559 - Pain in unspecified hip COMPARISON: October 19, 2024. TECHNIQUE: Cross lateral view of the right hip. FINDINGS: There is a metallic prosthesis with an acetabular and femoral component well-seated in the osseous structures without gross malalignment. XR/XR hip RT 1V IMPRESSION: No dislocation of the right hip prosthesis. Electronically signed by: Jonn Segura MD 11/02/2024 02:53 PM EDT
--- NOTE | ~2024-11-02 | XR_ITS ---
EXAMINATION: XR PELVIS 1-2 VIEWS HISTORY: M25.559 - Pain in unspecified hip COMPARISON: Comparison is made with the prior examination dated 10/19/2024. FINDINGS: Two AP views of the pelvis are submitted. The patient is status post right total hip arthroplasty. The orthopedic elements appear in anatomic alignment. There is no radiographic evidence of loosening. There is no fracture or dislocation. There is mild narrowing of the left hip. XR/XR pelvis 1-2V IMPRESSION: Status post right total hip arthroplasty. Mild narrowing of the left hip. Electronically signed by: Neel Calderón MD 11/02/2024 02:58 PM EDT
--- OUTSIDE RECORDS SUMMARY | 2024-11-02 13:12 | XMS_ITS | Clinical Summary ---
Author Organization [facility] Address [address] [place] [address] Care Team Providers Care Brine Purifier Name Role Phone Gustavo Dias MD Primary Care Provider [phone] Allergies Active Allergy Reactions Criticality Noted Date [...] Documents on File Type Date Recorded Patient Retail Department Supervisor Expl anation MOLST/POLST 03/03/2024 6:25 AM 4 Care Teams Brine Purifier Relationship Specialty Start Date End Date Gustavo Dias MD [address] [place] [address] [id number] PCP - General Internal Medicine 03/01/24
== END 2024-11-02 13:01 | disposition home or self-care (01) ==
LOC: HO.HOSX 13:00
PROVIDERS: Visit Provider Orthopaedic Surgery
DX: Z96.641 Presence of right artificial hip joint (principal); M25.551 Pain in right hip; T84.020A Dislocation of internal right hip prosthesis, initial encounter; J44.1 Chronic obstructive pulmonary disease with (acute) exacerbation; Z87.891 Personal history of nicotine dependence; X58.XXXA Exposure to other specified factors, initial encounter
CPT/HCPCS: 72170; 73501; 99212

== ENCOUNTER 2024-11-02 13:56 | Outpatient (AMB) | payer OTHER, SELFPAY ==
--- NOTE | 2024-11-02 14:24 | A.OFFVIS_ITS ---
Intake Visit Reasons: OV - RT hip dislocation, discuss Hip Revision Intake Note: Rody is a 59 year old female who presents today for a follow up of her Right Hip s/p Right MAMADOU 05/02/2024. Since her surgery she has had multiple dislocations and has been non-compliant with hip brace due to discomfort. Patient has now decided that she would like to move forward with a Right MAMADOU Revision as she states that she does not want to go through this struggle anymore. She is unsure how her current respiratory status will affect surgery. Allergies lansoprazole (Prevacid) Allergy (Severe, Verified 10/23/24 09:54) anaphylaxis cyclobenzaprine (From Flexeril) Adverse Reaction (Intermediate, Verified 10/23/24 09:54) Rash HPI HPI OV - RT hip dislocation, discuss Hip Revision: Details: Rody is a 59 year old female who presents today for a follow up of her Right Hip s/p Right MAMADOU 05/02/2024. Since her surgery she has had multiple dislocations (approx 5) and has been non-compliant with hip brace due to discomfort. She has been unable to attend outpatient physical therapy for another reasons and was having to work because of money concerns which prevented her from pursuing surgery sooner. She is finally at a better place financially some financial protection so would like to discuss options for treatment. Rody is primary medical problem is her lungs. She is no longer a smoker but she does have COPD in his does get exacerbated with activity so that by the end of the day she does tend to use her home oxygen. Her preoperative cord course was complicated by rapid progression of avascular necrosis leading to being bed-bound in a wheelchair and severely deconditioned. Overall our surgery was uneventful and she did well until she started dislocating. She describes a dislocation events occurring when her foot was planted and she twists. The dislocations have all been anterior. COUNT INCLUDES THE [facility] Medical History COPD (chronic obstructive pulmonary disease) Respiratory failure with hypoxia and hypercapnia Pulmonary edema Resides in residential facility Heart failure with preserved ejection fraction Substance abuse Acute exacerbation of chronic obstructive pulmonary disease Lumbar spondylosis Trochanteric bursitis of right hip Obesity Nicotine dependence, cigarettes, uncomplicated History of sepsis Urinary frequency COPD (chronic obstructive pulmonary disease) Exercise hypoxemia Smoker Bilateral hip pain Dyslipidemia Lower back pain Anxiety associated with depression Somatic dysfunction of left sacroiliac joint Surgical History S/P total right hip arthroplasty History of section Family History Father Substance use disorder Mother Substance use disorder Mental health disorder Maternal Grandmother Substance use disorder Mental health disorder Social History Household Members: Spouse Housing: House Housing Other:: currently @ [facility] for rehab Are you a primary hourly caregiver to a significant other at home: No Do you presently have visiting nurse or other home services: No Unable to assess alcohol history related to: Unable to respond Alcohol intake: former Patient Tobacco Use Status: Former Tobacco user Tobacco use type: Cigarette Cigarette Packs Per Day: 0.5 Cigarettes Per Day: 2 Years Smoked: 30 e-Cigarette/Vaping Use: Never Used Second Hand Smoke Exposure: No Substance Use Type: Crack/Cocaine service: No Current occupational status: employed Current occupation: [employer] Cognitive needs: No Hearing needs: No Vision needs: No Physical Exam Const General: cooperative, no acute distress, well developed and alert HEENT Head: Yes normal to inspection, Yes normocephalic and Yes atraumatic Mouth: moist mucous membranes Eyes General: appearance normal, both eyes and all related structures EOM: EOMs intact bilaterally Chest Other: no audible wheezing. Resp Other: Using portable nasal cannula oxygen Effort & Inspection: abnormal respiratory pattern Cardio Other: Radial pulse palpable with no rythmic abnormalities Back/Spine/Pelvis Cervical Spine: normal cervical lordosis Skin General skin exam: no rashes or lesions noted Neuro General: no focal motor deficits Extrem Other: Incision is clean dry and intact. There is no pain with gentle hip range of motion. She walks well without gait antalgia. She has a 2+ dorsalis pedis pulse and she is firing EHL/gastrocs/tibialis anterior. Psych Appearance: grossly normal and well kempt Mental Status: mental status grossly normal Speech and movement: Normal speech and movement present Affect: normal affect Attitude: cooperative Results Reviewed Results Reviewed: I personally reviewed relevant radiographs. Radiographs were reviewed. The right hip is located and the hardware appears appropriately positioned. There is no evidence of malalignment. Assessment & Plan Assessment & Plan (1) S/P total right hip arthroplasty: Code(s): Z96.641 - Presence of right artificial hip joint Category: Surgical Plan: (2) Dislocation of prosthesis of right hip joint: Code(s): T84.020A - Dislocation of internal right hip prosthesis, initial encounter Category: Medical Plan: This is a 59-year-old woman who has had multiple dislocations status post right hip replacement. I refilled her Celebrex prescription and I recommend that she start outpatient physical therapy. This was also ordered. I do recommend r evision hip surgery. She can not continue with these recurrent dislocations. The etiology of her instability is multifactorial but I believe it is primarily a result of soft tissue and deconditioning. She has been months wheelchair- bound and has not been able to engage in any meaningful physical therapy postoperatively. I explained the surgery to her I suspect that we will lengthen her and place a MDM liner for increased stability. I discussed the risks of surgery. The primary risk, in my opinion, is recurrent dislocation. The other risks of arthroplasty exist and those include, but are not limited to, the risk of infection, leg length discrepancy, nerve injury, fracture as well as medical complications associated with surgery the primary 1 is relating to her lungs. She is partially oxygen dependent and this will require wire close monitoring postoperatively. She states she has an appointment with her cyber transport systems specialist soon and I think that will be helpful. She was cleared to undergo surgery prior to her initial surgery and her lungs were equally poor. I discussed this with her. She understands. In the meantime she will try physical therapy and I recommend wearing the abduction brace. I answered her questions to the best of my abilities. I will also order ESR and CRP to rule out any infection. Orders: Orders XR pelvis 1-2V 11/02/24 M25.559 - Pain in unspecified hip XR hip RT 1V 11/02/24 M25.559 - Pain in unspecified hip PT Evaluation and Treatment Today T84.020A - Dislocation of internal right hip prosthesis, initial encounter, Z96.641 - Presence of right artificial hip joint Erythrocyte Sedimentation Rate Today Z96.641 - Presence of right artificial hip joint C Reactive Protein Today Z96.641 - Presence of right artificial hip joint Coding Level of Care Code Est Pt Level 4 (89708) Diagnoses S/P total right hip arthroplasty Z96.641 Dislocation of prosthesis of right hip joint T84.020A
== END 2024-11-02 15:17 | disposition home or self-care (01) ==
LOC: HO.HOS 13:57
PROVIDERS: PCP Internal Medicine; Visit Provider Orthopaedic Surgery
DX: T84.020A Dislocation of internal right hip prosthesis, initial encounter (principal); Z96.641 Presence of right artificial hip joint
CPT/HCPCS: 99024

== ENCOUNTER → 2024-11-02 14:07 | Outpatient (BNV) | payer OTHER, SELFPAY | PROVIDERS: Visit Provider Radiology Diagnostic Radiology | DX: M16.12 Unilateral primary osteoarthritis, left hip (principal); Z96.641 Presence of right artificial hip joint; M25.552 Pain in left hip | CPT/HCPCS: 72170; 73501 ==

== ENCOUNTER → 2024-11-14 08:53 | Outpatient (BNVA) | payer OTHER, SELFPAY | PROVIDERS: PCP Internal Medicine | DX: J44.9 Chronic obstructive pulmonary disease, unspecified (principal); J96.91 Respiratory failure, unspecified with hypoxia; J96.92 Respiratory failure, unspecified with hypercapnia; F17.210 Nicotine dependence, cigarettes, uncomplicated | CPT/HCPCS: 99212 ==

== ENCOUNTER 2024-11-14 15:06 | Outpatient (AMB) | payer OTHER, SELFPAY ==
--- NOTE | 2024-11-14 15:11 | A.OFFVIS_ITS ---
Vital Signs 11/14/24 15:12 Height 5 ft 1 in Weight 209 lb 7.026 oz BMI 39.6 BP 140/90 H Blood Pressure Location Lt brachial Position Sitting Pulse 104 H Pulse Source Pulse Oximeter Pulse Oximetry (%) 93 Oxygen Delivery Method Nasal Cannula Oxygen Flow Rate 2 Intake Visit Reasons: hip revision Intake Note: pt is here for pre-op clearaance for hip revision, but pt has been struggling for the past few weeks, she has questions about her lung disease. Traffic Observer Required: No Allergies lansoprazole (Prevacid) Allergy (Severe, Verified 11/14/24 16:31) anaphylaxis cyclobenzaprine (From Flexeril) Adverse Reaction (Intermediate, Verified 11/14/24 16:31) Rash Medication List - Last Reconciled 11/14/24 by Ramon Avila MD acetaminophen 650 mg (2 x 325 mg) PO Q6H PRN 30 days acetazolamide 250 mg PO DAILY 30 days albuterol sulfate 90 mcg/actuation (Ventolin HFA) 2 puffs inhalation Q6H PRN baclofen 10 mg PO BID PRN 30 days budesonide 0.5 mg (2 mL) inhalation BID 30 days celecoxib 200 mg PO BID clonidine HCl 0.1 mg PO TID 90 days fluticasone propionate 50 mcg/actuation 1 spray intranasal Q12H PRN furosemide 40 mg See Protocol PO DAILY 30 days gabapentin 600 mg PO TID 30 days ipratropium-albuterol 0.5 mg-3 mg(2.5 mg base)/3 mL 3 mL inhalation RQ4H WHILE AWAKE PRN nicotine (polacrilex) 4 mg buccal Q2H PRN prednisone 5 mg PO Q OTHER DAY 28 days trazodone 50 mg PO BEDTIME PRN varenicline tartrate (Chantix) 1 mg PO BID venlafaxine ER 150 mg PO BID walker Folding Front wheeled walker duration 99 days Do you need a note to return to daycare/school/sports/work: No HPI HPI hip revision: Details: THIS 59 YEARS OLD FEMALE IS HERE FOR FOLLOW-UP, MAINLY TO DISCUSS ABOUT HER SURGERY, ( REVISION OF THE HIP REPLACED ) AND FOR FOLLOW-UP OF HER COPD/RESPIRATORY FAILURE. ONCE SEEN LAST 2 WEEKS AGO SHE WAS RELATIVELY STABLE, TODAY SHE COMES IN AND SEEMS TO BE SOMEWHAT DEPRESSED ,WEEPY, AND HAVING SOME QUESTIONS ABOUT WHETHER SHE SHOULD HAVE THE HIP SURGERY ARE NOT. HER QUESTION IS, IF IT IS GOING TO BE WORTH UNDERGOING SURGERY NOT, CONSIDERING HER LUNG CONDITION AND HOW LONG SHE HAS TO LAY. INCLUDED IN HER REGIMEN IS PREDNISONE 5 MG ON ALTERNATE DAYS. SHE THINKS IS NOT ENOUGH SO A REACTION SHE HAS ACTUALLY STOPPED TAKING PREDNISONE. SHE IS ALSO NOT USING THE NEBULIZER REGULARLY, THOUGH SHE ADMITS OF USING BUDESONIDE 0.5 MG SOLUTION IN THE NEB. B.I.D.. SHE HAS HAD NO FEVER CHILLS COUGH OR EXPECTORATION. HER LOCOMOTION IS LIMITED BECAUSE OF HIP PAIN., BUT SHE IS ABLE TO WALK WITHOUT ANY SUPPORT. SHE DOES HAVE POC FOR PORTABILITY AND USES O2 2 L/MINUTE . AT HOME SHE IS USING OXYGEN P.R.N.. SHE CLAIMS THAT SHE IS SMOKING ONLY 2 OR 3 CIGARETTES A DAY. CURRENTLY SHE IS ON CHANTIX 1 MG B.I.D. WELL USING NICOTINE POUCH 4 MG ONLY P.R.N. FOR DEPRESSION SHE IS ON VENAFLEXIN 150 MG BID , AND TRAZODONE 50 MG AT BEDTIME. WHEN OF FLEXION [facility] Medical History COPD (chronic obstructive pulmonary disease) Respiratory failure with hypoxia and hypercapnia Pulmonary edema Resides in fpc facility Heart failure with preserved ejection fraction Substance abuse Acute exacerbation of chronic obstructive pulmonary disease Lumbar spondylosis Trochanteric bursitis of right hip Obesity Nicotine dependence, cigarettes, uncomplicated History of sepsis Urinary frequency COPD (chronic obstructive pulmonary disease) Exercise hypoxemia Smoker Bilateral hip pain Dyslipidemia Lower back pain Anxiety associated with depression Somatic dysfunction of left sacroiliac joint Surgical History S/P total right hip arthroplasty History of section Family History Father Substance use disorder Mother Substance use disorder Mental health disorder Maternal Grandmother Substance use disorder Mental health disorder Social History Household Members: Spouse Housing: House Housing Other:: currently @ [facility] for rehab Are you a primary home care associate to a significant other at home: No Do you presently have visiting nurse or other home services: No Unable to assess alcohol history related to: Unable to respond Alcohol intake: former Patient Tobacco Use Status: Former Tobacco user Tobacco use type: Cigarette Cigarette Packs Per Day: 0.5 Cigarettes Per Day: 2 Years Smoked: 30 e-Cigarette/Vaping Use: Never Used Second Hand Smoke Exposure: No Substance Use Type: Crack/Cocaine service: No Current occupational status: employed Current occupation: [employer] Cognitive needs: No Hearing needs: No Vision needs: No Review of Systems Const All systems reviewed & are unremarkable except as noted in HPI and below Eyes Reports no additional complaints ENT Reports no additional complaints Card Denies chest pain, Denies irregular heart rhythm and Reports dyspnea on exertion Resp Reports as per HPI, Reports dyspnea on exertion and Denies wheezing GI Reports no additional complaints Reports no additional complaints Musc Reports back pain, Reports myalgias and Reports arthralgias (Painful right hip and has difficulty in standing and walking) Skin/Breast Reports system reviewed and no additional complaints, except as documented Neuro Reports no additional complaints Psych Reports anxiety Endo Reports no additional complaints Aller/Immun Denies wheezing Physical Exam Vital Signs: Last Vital Signs Pulse 104 H 11/14/24 15:12 BP 140/90 H 11/14/24 15:12 Pulse Ox 93 11/14/24 15:12 Oxygen Delivery Method Nasal Cannula 11/14/24 15:12 Oxygen Flow Rate 2 11/14/24 15:12 BMI result Body Mass Index 39.6 Const General: comfortable, no acute distress, alert and awake Orientation/consciousness: patient oriented x3 HEENT Head: Yes normal to inspection General nose exam: No nasal polyps present and No nasal discharge present Face and sinus: Yes sinuses nontender Mouth: oropharynx normal (MUCOSA IS DRY AND SLIGHTLY REDDISH, NO EXUDATES) Throat: Yes posterior oropharynx normal Eyes General: appearance normal, both eyes and all related structures Neck Neck: Yes normal visual inspection, Yes no lymphadenopathy, Yes trachea midline and Yes no JVD Thyroid: Thyroid normal Chest Chest palpation & inspection: normal inspection of the chest, normal palpation of entire chest wall and no tenderness Resp Other: PERCUSSION NOTE IS RESONANT, BREATH SOUNDS ARE DISTANT BUT EQUAL ON BOTH SIDES. NO WHEEZES RHONCHI OR CREPITATIONS ARE HEARD . Cardio Palpation: normal PMI Rate: regular rate Rhythm: regular rhythm Heart sounds: no gallops and no murmurs Peripheral pulses: Peripheral pulses 2+ throughout GI Palpation (GI): Soft to palpation, nontender, No hepatosplenomegaly present and no masses Auscultation: normal bowel sounds Back/Spine/Pelvis Thoracic/Lumbar Spine: thoracic and lumbar spine normal to inspection Skin General skin exam: no rashes or lesions noted Neuro General: patient oriented x3 and no focal motor deficits Cranial nerves: Yes CN's II-XII intact bilaterally Extrem General: No normal to inspection (Patient is in wheelchair and not able to stand or walk due to severe pain. ), Yes no clubbing, cyanosis or edema and Yes no calf tenderness Psych Appearance: grossly normal and well kempt Speech and movement: Normal speech and movement present Assessment & Plan Assessment & Plan (1) COPD (chronic obstructive pulmonary disease): Comment: THIS PATIENT IS A KNOWN CASE OF ADVANCED CHRONIC OBSTRUCTIVE PULMONARY DISEASE. DEFINITELY RELATED TO HER LIFELONG SMOKING. RECENTLY HAS BEEN TREATED AT [facility] AND THEN AT [facility] FOR A FEW DAYS, SHE DID HAVE HYPERCAPNIA WHICH IMPROVED AFTER USE OF BIPAP. AT HOME JUST USING O2 2 L/MINUTE AT NIGHT AND PRN DURING THE DAYTIME. RESPIRATORY STATUS SEEMS TO BE STABLE , BUT SHE IS HE THEN DEPRESSED MODE TODAY. Code(s): J44.9 - Chronic obstructive pulmonary disease, unspecified Category: Medical Plan: I HAD A LONG TALK WITH HER AND STRESSED THAT SHE HAS TO CONTINUE HER TREATMENT REGIMEN WITH FULL COMPLIANCE. IPRATROPIUM-ALBUTEROL SOLUTION IN THE NEBULIZER Q 6 HOURS WHILE AWAKE. DESONIDE 0.5 MG SOLUTION IN THE NEBULIZER B.I.D.. OXYGEN 2 L/MINUTE, AT NIGHT, 2 L/MINUTE WITH THE POC WHEN OUTDOORS., AND 2 L/MINUTE P.R.N. AT HOME. HAD A GOOD TALK WITH HER ABOUT CONTROLLED O2 USAGE. RESUME PREDNISONE 5 MG ON ALTERNATE DAYS (2) Nicotine dependence, cigarettes, uncomplicated: Comment: (Current smoker - onset 23yo, 1ppd x 34yrs, 30pyh) STILL SMOKING 3-4 CIGARETTES A DAY, SHE IS NOW ON CHANTIX 1 MG B.I.D., Code(s): F17.210 - Nicotine dependence, cigarettes, uncomplicated Category: Medical Plan: TALKED TO HER AND STRESS THAT THE GOAL IS TO QUIT SMOKING COMPLETELY . (3) Respiratory failure with hypoxia and hypercapnia: Comment: IN ADDITION TO NOCTURNAL AND EXERCISE INDUCED HYPOXEMIA , SHE DOES HAVE HYPERCAPNIA C/W CHRONIC RESPIRATORY FAILURE. CLINICALLY IT HAS IMPROVED. Code(s): J96.91 - Respiratory failure, unspecified with hypoxia; J96.92 - Respiratory failure, unspecified with hypercapnia Category: Medical Plan: VENOUS BLOOD GAS STUDY ORDERED. EDUCATED ABOUT MANAGE TREATMENT OF HER CHRONIC RESPIRATORY FAILURE. VERY IMPORTANT FOR HER TO DO DEEP BREATHING EXERCISES WITH PURSED LIP TECHNIQUE EVERY 2 HOURS WHILE AWAKE. Plan * CLEARANCE NOTE : NOTED ABOVE, TODAY THIS PATIENT IS IN A DEPRESSED MOOD, AND WONDERS IF IT IS WORTH UNDERGOING THE HIP SURGERY OR NOT. I TOLD HER THAT FROM PULMONARY POINT OF VIEW SHE IS A HIGH SURGICAL RISK, BUT IT IS NOT ABSOLUTELY CONTRAINDICATED. FOR HER QUALITY OF LIFE IF SHE NEEDS TO HAVE REVISION OF THE HIP REPLACEMENT THEN SHE SHOULD UNDERGO THE SURGERY. ANYTIME SHE GOES SURGERY SHE NEEDS TO HAVE HER PULMONARY STATUS OPTIMALLY CONTROLLED. SHE WILL NEED A STRESS DOSE OF STEROIDS BEFORE SURGERY AND POST SURGERY MAY NEED TO BE ON A SHORT COURSE OF PREDNISONE. POST SURGERY IF SHE HAS ELEVATED CO2 , SHE MAY NEED VENT SUPPORT ( NIVS OR VIA ET INTUBATION ) FOR A FEW DAYS. AFTER RECOVERY FROM THE IS SURGICAL PROCEDURE, SHE WOULD NEED ONGOING REHAB PROGRAM. FOR LONG-TERM MANAGEMENT HE SHOULD JOIN PULMONARY REHAB PROGRAM . AFTER GIVING HER THIS EDUCATION , I LEFT IT UP TO HER TO MAKE THE DECISION AND DISCUSSED WITH DR. DUMONT. Orders: Orders Venous Blood Gas Today J44.9 - Chronic obstructive pulmonary disease, unspecified, J96.91 - Respiratory failure, unspecified with hypoxia, J96.92 - Respiratory failure, unspecified with hypercapnia Coding Level of Care Code Est Pt Level 4 (10049) Diagnoses COPD (chronic obstructive pulmonary disease) J44.9 Nicotine dependence, cigarettes, uncomplicated F17.210 Respiratory failure with hypoxia and hypercapnia J96.91; J96.92
[2024-11-14 15:12] VITALS: BP 140/90; PULSE 104; O2SAT 93; BMI 39.6
== END 2024-11-14 15:43 | disposition home or self-care (01) ==
LOC: HO.HPS 15:07
PROVIDERS: PCP Nurse Practitioner Family; Visit Provider Internal Medicine
DX: J44.9 Chronic obstructive pulmonary disease, unspecified (principal); F17.210 Nicotine dependence, cigarettes, uncomplicated; J96.91 Respiratory failure, unspecified with hypoxia; J96.92 Respiratory failure, unspecified with hypercapnia
CPT/HCPCS: 99214

== ENCOUNTER 2024-11-28 15:54 | Outpatient (AMB) | payer OTHER, SELFPAY ==
[2024-11-28 16:00] VITALS: BP 128/80; PULSE 71; O2SAT 94; BMI 38.7
--- NOTE | 2024-11-28 16:00 | MHC.PC.OV ---
Vital Signs 11/28/24 16:00 Height 5 ft 1 in Weight 205 lb BMI 38.7 BP 128/80 Blood Pressure Location Lt brachial Position Sitting Pulse 71 Pulse Oximetry (%) 94 Oxygen Delivery Method Room Air Intake Visit Reasons: Pre-operative H&P Flat Clothier Required: No Accompanied by: Self / Same As Patient Allergies lansoprazole (Prevacid) Allergy (Severe, Verified 11/28/24 16:00) anaphylaxis cyclobenzaprine (From Flexeril) Adverse Reaction (Intermediate, Verified 11/28/24 16:00) Rash Medication List - Last Reconciled 11/28/24 by CHU PascalP- acetaminophen 650 mg (2 x 325 mg) PO Q6H PRN 30 days acetazolamide 250 mg PO DAILY 30 days albuterol sulfate 90 mcg/actuation (Ventolin HFA) 2 puffs inhalation Q6H PRN baclofen 10 mg PO BID PRN 30 days budesonide 0.5 mg (2 mL) inhalation BID 30 days celecoxib 200 mg PO BID clonidine HCl 0.1 mg PO TID 90 days fluticasone propionate 50 mcg/actuation 1 spray intranasal Q12H PRN furosemide 40 mg See Protocol PO DAILY 30 days gabapentin 600 mg PO TID 30 days ipratropium-albuterol 0.5 mg-3 mg(2.5 mg base)/3 mL 3 mL inhalation RQ4H WHILE AWAKE PRN nicotine (polacrilex) 4 mg buccal Q2H PRN prednisone 5 mg PO Q OTHER DAY 28 days trazodone 50 mg PO BEDTIME PRN varenicline tartrate (Chantix) 1 mg PO BID venlafaxine ER 150 mg PO BID walker Folding Front wheeled walker duration 99 days Tobacco use date assessed: 11/28/24 Dental Screening Dental Screen Date: 06/26/24 HPI Pre-operative H&P HPI Details History of Present Illness The patient is a 59-year-old female presenting for pre-operative clearance for a right hip revision surgery due to recurrent dislocations. She is scheduled for surgery in the middle of January and has been cleared by pulmonary specialists. The need for cardiology clearance is being evaluated, and she is required to complete labs and an EKG before final clearance. The patient has a history of smoking but quit approximately two weeks ago, noting an improvement in her breathing since cessation. She is described as morbildy obese, which may impact her surgical risk profile. Health Maintenance Social History - Substance Use: Quit smoking two weeks ago, noted improvement in breathing Review of Systems - Respiratory: Reports improved breathing since smoking cessation Physical Exam General: Cooperative, healthy appearing, comfortable, no acute distress and well developed, warmly obese Orientation: Patient oriented x3 Limitations: No limitations Head: Normal to inspection Ears: Hearing grossly normal bilaterally Nose: Normal external nose present Face and sinus: Normal facial exam Eyes: Appearance normal, both eyes and all related structures Neck: Normal visual inspection and Yes full ROM, no cervical lymphadenopathy Respiratory: Lungs were clear/diminished, though she's moving air. Normal respiratory effort and able to speak in complete sentences. Clear to auscultation bilaterally Cardiovascular: Regular rate and rhythm. Normal S1 and S2, no carotid bruits auscultated GI: Normal to inspection. Soft to palpation and nontender Skin: No rashes or lesions noted Neuro: Patient oriented x3 Extremities: Normal to inspection Results Plan The patient is scheduled for a right hip revision surgery in January due to recurrent dislocations. She has been cleared by pulmonary specialists, and the need for cardiology clearance is being assessed. Pre-operative labs and an EKG are required for final clearance. The patient has recently quit smoking, which has improved her respiratory status, and this lifestyle change should be encouraged to continue. Discussion Notes I discussed with the patient the need for pre-operative clearance for her upcoming right hip revision surgery. We reviewed her pulmonary clearance and the pending cardiology clearance, as well as the requirement for labs and an EKG. I also encouraged her to maintain her smoking cessation, which has already improved her respiratory health. Patient Instructions - Complete all required labs and EKG before surgery. - Follow up with cardiology if clearance is needed. - Continue to abstain from smoking to improve respiratory health. [facility] Medical History COPD (chronic obstructive pulmonary disease) Respiratory failure with hypoxia and hypercapnia Pulmonary edema Resides in nursing home facility Heart failure with preserved ejection fraction Substance abuse Acute exacerbation of chronic obstructive pulmonary disease Lumbar spondylosis Trochanteric bursitis of right hip Obesity Nicotine dependence, cigarettes, uncomplicated History of sepsis Urinary frequency COPD (chronic obstructive pulmonary disease) Exercise hypoxemia Smoker Bilateral hip pain Dyslipidemia Lower back pain Anxiety associated with depression Somatic dysfunction of left sacroiliac joint Surgical History History of total right hip replacement (05/02/24) History of section Family History Father Substance use disorder Mother Substance use disorder Mental health disorder Maternal Grandmother Substance use disorder Mental health disorder Social History Household Members: Spouse Housing: House Housing Other:: currently @ [facility] for rehab Are you a primary respiratory care technician to a significant other at home: No Do you presently have visiting nurse or other home services: No Unable to assess alcohol history related to: Unable to respond Alcohol intake: former Patient Tobacco Use Status: Former Tobacco user Tobacco use type: Cigarette Cigarette Packs Per Day: 0.5 Cigarettes Per Day: 2 Years Smoked: 30 e-Cigarette/Vaping Use: Never Used Second Hand Smoke Exposure: No Substance Use Type: Crack/Cocaine service: No Current occupational status: employed Current occupation: [employer] Cognitive needs: No Hearing needs: No Vision needs: No Questionnaire Thrive Questionnaire Date Thrive assessed: 06/26/24 I am a: Patient What is your living situation today?: I have a place to live, but I am worried about losing it in the future Within the past 12 months, did the food you bought not last and you didn't have the money to get more?: Sometimes True Within the past 12 months, did you worry whether your food would run out before you got money to buy more?: Often true Do you have trouble paying for medicines?: Yes Do you have trouble getting transportation to medical appointments?: No Do you have trouble paying your heating and electricity bill?: Yes Do you have trouble taking care of your child, family member or friend?: No Do you have trouble with day-to-day activities such as bathing, preparing meals, shopping, managing finances, etc.?: I choose not to answer this question Are you currently unemployed and looking for a job?: No Are you interested in more education?: No THRIVE Score: 4 AUDIT C Alcohol Use Questionnaire (AUDIT-C) 2. How many drinks containing alcohol do you have on a typical day when you are drinking?: 1 or 2 Total Score: 0 DAI-7 AMB Questionnaire DAI-7 Date DAI - 7 assessed: 06/26/24 Source: Developed by Drs. Neel Lazaro, Marilee Stanley, Antonio Rodriguez and colleagues, with an educational willie from [employer]. Physical exam (Primary Care) Vital Signs: Last Vital Signs Pulse 71 11/28/24 16:00 BP 128/80 11/28/24 16:00 Pulse Ox 94 11/28/24 16:00 Oxygen Delivery Method Room Air 11/28/24 16:00 BMI result Body Mass Index 38.7 Tobacco/Smoking Status: Tobacco use Status Tobacco use date assessed 11/28/24 11/28/24 16:04 Patient Tobacco Use Status Former Tobacco user 11/28/24 16:04 Tobacco use type Cigarette 11/28/24 16:04 e-Cigarette/Vaping Use Never Used 11/28/24 16:04 Thrive Assessment: Date of Thrive Assessment Date Thrive assessed 06/26/24 11/28/24 16:04 Coding Level of Care Code Est Pt Prev Care 40-64y(83051) Diagnoses Pre-op evaluation Z01.818 Assessment & Plan Assessment & Plan (1) Pre-op evaluation: Code(s): Z01.818 - Encounter for other preprocedural examination Category: Medical Plan . Orders: Orders Comprehensive [place]. Panel Fast Today Z - Encounter for other preprocedural examination UA CC w/rflx Micro + Cult Today Z8 - Encounter for other preprocedural examination Partial Thromboplastin Time Today Z818 - Encounter for other preprocedural examination Complete Blood Count Auto Diff Today Z81 - Encounter for other preprocedural examination TSH reflex Free T4 Today Z.818 - Encounter for other preprocedural examination Lipid Panel Today Z.818 - Encounter for other preprocedural examination Prothrombin Time INR Today Z.818 - Encounter for other preprocedural examination ECG 12 lead EKG Today Z.818 - Encounter for other preprocedural examination Medications: Refilled varenicline tartrate (Chantix) 1 mg PO BID 56 tabs 0RF celecoxib 200 mg PO BID 60 caps 0RF
--- OUTSIDE RECORDS SUMMARY | 2024-11-28 17:25 | XMS_ITS | Clinical Summary ---
Author Organization [facility] Address [address] [place] [address] Care Team Providers Care Magnetic Grinder Operator Name Role Phone Gustavo Dias MD Primary Care Provider [phone] Allergies Active Allergy Reactions Criticality Noted Date [...] Documents on File Type Date Recorded Patient Food Processing Scientist Expl anation MOLST/POLST 03/03/2024 6:25 AM 4 Care Teams Magnetic Grinder Operator Relationship Specialty Start Date End Date Gustavo Dias MD [address] [place] [id number] PCP - General Internal Medicine 03/01/24
== END 2024-11-28 16:32 | disposition home or self-care (01) ==
PROVIDERS: PCP Nurse Practitioner Family; Visit Provider Nurse Practitioner Family
DX: Z01.818 Encounter for other preprocedural examination (principal); S73.004A Unspecified dislocation of right hip, initial encounter

== ENCOUNTER → 2024-11-28 15:54 | Outpatient (BNVA) | payer OTHER, SELFPAY | PROVIDERS: PCP Nurse Practitioner Family; Visit Provider Nurse Practitioner Family | DX: Z01.818 Encounter for other preprocedural examination (principal); Z87.891 Personal history of nicotine dependence | CPT/HCPCS: 99212 ==

== ENCOUNTER 2025-01-15 15:02 | Outpatient (AMB) | payer OTHER, SELFPAY ==
[2025-01-15 15:07] VITALS: BP 140/90; PULSE 102; O2SAT 94; BMI 40.2
--- NOTE | 2025-01-15 15:07 | A.OFFVIS_ITS ---
Vital Signs 01/15/25 15:07 Height 5 ft 1 in Weight 212 lb 11.937 oz BMI 40.2 BP 140/90 H Blood Pressure Location Lt brachial Position Sitting Pulse 102 H Pulse Source Pulse Oximeter Pulse Oximetry (%) 94 Oxygen Delivery Method Room Air Intake Visit Reasons: pre-op revision of hip Intake Note: pt is here for follow up and states she is not having a revision of hip at this time, she is doing her own pulm rehab at home and sees a benefit to this. walking and exercising. Distribution Transformer Assembler Required: No Stripping Shovel Oiler: Stripping Shovel Oiler offered & declined Allergies lansoprazole (Prevacid) Allergy (Severe, Verified 01/15/25 15:30) anaphylaxis cyclobenzaprine (From Flexeril) Adverse Reaction (Intermediate, Verified 01/15/25 15:30) Rash Medication List - Last Reconciled 01/15/25 by Ramon Avila MD acetaminophen 650 mg (2 x 325 mg) PO Q6H PRN 30 days acetazolamide 250 mg PO DAILY 30 days albuterol sulfate 90 mcg/actuation (Ventolin HFA) 2 puffs inhalation Q6H PRN baclofen 10 mg PO BID PRN budesonide 0.5 mg (2 mL) inhalation BID 30 days celecoxib 200 mg PO BID clonidine HCl 0.1 mg PO TID 90 days dapagliflozin propanediol (Farxiga) 10 mg PO DAILY fluticasone propionate 50 mcg/actuation 1 spray intranasal Q12H PRN furosemide 40 mg See Protocol PO DAILY 30 days gabapentin 600 mg PO .4 times a day 30 days ipratropium-albuterol 0.5 mg-3 mg(2.5 mg base)/3 mL 3 mL inhalation Q4H PRN nicotine (polacrilex) 4 mg buccal Q2H PRN prednisone 5 mg PO Q OTHER DAY trazodone 50 mg PO BEDTIME PRN varenicline tartrate (Chantix) 1 mg PO BID venlafaxine ER 150 mg PO BID walker Folding Front wheeled walker duration 99 days Do you need a note to return to daycare/school/sports/work: No HPI HPI pre-op revision of hip: 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 SHE IS A CASE OF ADVANCED CHRONIC OBSTRUCTIVE PULMONARY DISEASE WITH RESPIRATORY FAILURE/ HYPERCAPNIA. SHE WAS PLANNING TO HAVE HIP SURGERY BECAUSE OF RECURRENT DISLOCATION OF THE HIP. BUT TODAY SHE TELLS ME THAT SHE IS GOING TO POSTPONE IT. SHE IS DOING MUSCLE EXERCISES AND FEELS STRONGER IN THE LEGS AND HIP AREA. BREATHING HAS BEEN QUITE STABLE AND ACTUALLY IMPROVED. SHE HAS STARTED DOING THE BREATHING WELL GENTLE EXERCISES, AND FOLLOWS A PROGRAM ONLINE FOR PULMONARY REHAB. USES HER MEDS REGULARLY. SHE SEEMS TO BE WELL EDUCATED ABOUT HER ADVANCED COPD AND THE CARE PLAN. SHE HAS RETIRED COMPLETELY ON DISABILITY BECAUSE OF THE RECURRENT HIP DISLOCATION AND ALSO ADVANCED COPD. [facility] Medical History COPD (chronic obstructive pulmonary disease) Respiratory failure with hypoxia and hypercapnia Pulmonary edema Resides in alf facility Heart failure with preserved ejection fraction Substance abuse Acute exacerbation of chronic obstructive pulmonary disease Lumbar spondylosis Trochanteric bursitis of right hip Obesity Nicotine dependence, cigarettes, uncomplicated History of sepsis Urinary frequency COPD (chronic obstructive pulmonary disease) Exercise hypoxemia Smoker Bilateral hip pain Dyslipidemia Lower back pain Anxiety associated with depression Somatic dysfunction of left sacroiliac joint Surgical History History of total right hip replacement (05/02/24) History of section Family History Father Substance use disorder Mother Substance use disorder Mental health disorder Maternal Grandmother Substance use disorder Mental health disorder Social History Household Members: Spouse Housing: House Housing Other:: currently @ [facility] for rehab Are you a primary lawn care specialist to a significant other at home: No Do you presently have visiting nurse or other home services: No Alcohol intake: former Patient Tobacco Use Status: Former Tobacco user Tobacco use type: Cigarette Cigarette Packs Per Day: 0.5 Cigarettes Per Day: 2 Years Smoked: 30 e-Cigarette/Vaping Use: Never Used Second Hand Smoke Exposure: No Substance Use Type: Crack/Cocaine service: No Current occupational status: employed Current occupation: [employer] Cognitive needs: No Hearing needs: No Vision needs: No Review of Systems Const All systems reviewed & are unremarkable except as noted in HPI and below Eyes Reports no additional complaints ENT Reports no additional complaints Card Denies chest pain, Denies irregular heart rhythm and Reports dyspnea on exertion Resp Reports as per HPI, Reports dyspnea on exertion and Denies wheezing GI Reports no additional complaints Reports no additional complaints Musc Reports back pain, Reports myalgias and Reports arthralgias (Painful right hip and has difficulty in standing and walking) Skin/Breast Reports system reviewed and no additional complaints, except as documented Neuro Reports no additional complaints Psych Reports anxiety Endo Reports no additional complaints Aller/Immun Denies wheezing Physical Exam Vital Signs: Last Vital Signs Pulse 102 H 01/15/25 15:07 BP 140/90 H 01/15/25 15:07 Pulse Ox 94 01/15/25 15:07 Oxygen Delivery Method Room Air 01/15/25 15:07 BMI result Body Mass Index 40.2 Const General: comfortable, no acute distress, alert and awake Orientation/consciousness: patient oriented x3 HEENT Head: Yes normal to inspection General nose exam: No nasal polyps present and No nasal discharge present Face and sinus: Yes sinuses nontender Mouth: oropharynx normal (MUCOSA IS DRY AND SLIGHTLY REDDISH, NO EXUDATES) Throat: Yes posterior oropharynx normal Eyes General: appearance normal, both eyes and all related structures Neck Neck: Yes normal visual inspection, Yes no lymphadenopathy, Yes trachea midline and Yes no JVD Thyroid: Thyroid normal Chest Chest palpation & inspection: normal inspection of the chest, normal palpation of entire chest wall and no tenderness Resp Other: PERCUSSION NOTE IS RESONANT, BREATH SOUNDS ARE DISTANT BUT EQUAL ON BOTH SIDES. NO WHEEZES RHONCHI OR CREPITATIONS ARE HEARD . Cardio Palpation: normal PMI Rate: regular rate Rhythm: regular rhythm Heart sounds: no gallops and no murmurs Peripheral pulses: Peripheral pulses 2+ throughout GI Palpation (GI): Soft to palpation, nontender, No hepatosplenomegaly present and no masses Auscultation: normal bowel sounds Back/Spine/Pelvis Thoracic/Lumbar Spine: thoracic and lumbar spine normal to inspection Skin General skin exam: no rashes or lesions noted Neuro General: patient oriented x3 and no focal motor deficits Cranial nerves: Yes CN's II-XII intact bilaterally Extrem General: No normal to inspection (Patient is in wheelchair and not able to stand or walk due to severe pain. ), Yes no clubbing, cyanosis or edema and Yes no calf tenderness Psych Appearance: grossly normal and well kempt Speech and movement: Normal speech and movement present Results Reviewed Results Reviewed: VENOUS BGs PH 7.39 PCO2 48 PO2 33, HCO3 29 ( MUCH IMPROVED ) Assessment & Plan Assessment & Plan (1) COPD (chronic obstructive pulmonary disease): Comment: THIS PATIENT IS A KNOWN CASE OF ADVANCED CHRONIC OBSTRUCTIVE PULMONARY DISEASE. DEFINITELY RELATED TO HER LIFELONG SMOKING. RECENTLY HAS BEEN TREATED AT [facility] AND THEN AT FOR A FEW DAYS, SHE DID HAVE HYPERCAPNIA WHICH IMPROVED AFTER USE OF BIPAP. AT HOME JUST USING O2 2 L/MINUTE AT NIGHT AND PRN DURING THE DAYTIME. RESPIRATORY STATUS SEEMS TO BE STABLE , AND SHE IS NOT DEPRESSED BEFORE, SHE SEEMS TO BE MORE IN CONTROL OF HER CONDITION. Code(s): J44.9 - Chronic obstructive pulmonary disease, unspecified Category: Medical Plan: COMMENDED FOR TAKING GOOD CARE OF HERSELF. CONTINUE BUDESONIDE SOLUTION 0.5 MG IN THE NEBULIZER B.I.D. AND IPRATROPIUM- ALBUTEROL SOLUTION IN THE NEBULIZER Q 6 HOURS WHILE AWAKE ( TID ) VENTOLIN HFA 2 PUFFS Q 6 HOURS P.R.N. WHEN OUTDOORS (2) Respiratory failure with hypoxia and hypercapnia: Comment: IN ADDITION TO NOCTURNAL AND EXERCISE INDUCED HYPOXEMIA , SHE DOES HAVE HYPERCAPNIA C/W CHRONIC RESPIRATORY FAILURE. CLINICALLY IT HAS IMPROVED AND SEEMS TO BE STABLE AT PRESENT. Code(s): J96.91 - Respiratory failure, unspecified with hypoxia; J96.92 - Respiratory failure, unspecified with hypercapnia Category: Medical Plan: VENOUS BLOOD GASES CHECKED., IMPROVED AND STABLE SHE IS EDUCATED AND URGED TO DO DEEP BREATHING EXERCISES WITH PURSED LIP TECHNIQUE AT LEAST 3 TIMES A DAY (3) Nicotine dependence, cigarettes, uncomplicated: Comment: (Current smoker - onset 23yo, 1ppd x 34yrs, 30pyh) STILL SMOKING 2 CIGARETTES A DAY, SHE IS NOW ON CHANTIX 1 MG B.I.D., Code(s): F17.210 - Nicotine dependence, cigarettes, uncomplicated Category: Medical Plan: ENCOURAGED TO STOP SMOKING COMPLETELY. SHE IS IN ANNUAL LUNG SCREENING PROGRAM . Orders: Orders Venous Blood Gas Today J44.9 - Chronic obstructive pulmonary disease, unspecified, J96.91 - Respiratory failure, unspecified with hypoxia, J96.92 - Respiratory failure, unspecified with hypercapnia Medications: New budesonide 0.5 mg (2 mL) inhalation BID 120 mL 5RF COPD 30 days ipratropium-albuterol 0.5 mg-3 mg(2.5 mg base)/3 mL 3 mL inhalation Q4-6H PRN 360 mL 5RF wheezing/COPD 30 days Coding Level of Care Code Est Pt Level 3 (92594) Diagnoses COPD (chronic obstructive pulmonary disease) J44.9 Respiratory failure with hypoxia and hypercapnia J96.91; J96.92 Nicotine dependence, cigarettes, uncomplicated F17.210
--- OUTSIDE RECORDS SUMMARY | 2025-01-15 17:25 | XMS_ITS | Clinical Summary ---
Author Organization [facility] Address [address] [place] [address] Care Team Providers Care Director Operations Broadcast Name Role Phone Gustavo Dias MD Primary Care Provider [phone] Allergies Active Allergy Reactions Criticality Noted Date [...] Health Maintenance Due Date Last Done Comments Cologuard 1965 Colon Cancer Screening 1965 Colonoscopy 1965 FOBT / Fit Test 1965 HIV Screening 1965 Sigmoidoscopy 1965 Hepatitis B Vaccines (1 [...] Documents on File Type Date Recorded Patient Slime Plant Operator Expl anation MOLST/POLST 03/03/2024 6:25 AM 4 Care Teams Director Operations Broadcast Relationship Specialty Start Date End Date Gustavo Dias MD PCP - General Internal Medicine 03/01/24
== END 2025-01-15 15:31 | disposition home or self-care (01) ==
LOC: HO.HPS 15:03
PROVIDERS: PCP Internal Medicine; Visit Provider Internal Medicine
DX: J44.9 Chronic obstructive pulmonary disease, unspecified (principal); J96.91 Respiratory failure, unspecified with hypoxia; J96.92 Respiratory failure, unspecified with hypercapnia; F17.210 Nicotine dependence, cigarettes, uncomplicated
CPT/HCPCS: 99213

== ENCOUNTER 2025-01-15 15:02 | Outpatient (REF) | payer OTHER, SELFPAY ==
[2025-01-15 16:15] LABS: VBG HCO3 29 mmol/L (22-26); VBG O2 % Saturation 47.0 %; Venous Blood Gas Refer to POC result
== END 2025-01-15 15:03 | disposition home or self-care (01) ==
LOC: HO.LAB 15:02
PROVIDERS: PCP Internal Medicine; Visit Provider Internal Medicine
DX: J44.9 Chronic obstructive pulmonary disease, unspecified (principal); J96.92 Respiratory failure, unspecified with hypercapnia; J96.91 Respiratory failure, unspecified with hypoxia; F17.210 Nicotine dependence, cigarettes, uncomplicated; Z79.899 Other long term (current) drug therapy
CPT/HCPCS: 36415; 82803; 99212

== ENCOUNTER 2025-04-03 09:56 | Outpatient (AMB) | payer OTHER, SELFPAY ==
--- NOTE | 2025-04-03 10:05 | A.OFFVIS_ITS ---
Vital Signs 04/03/25 10:06 Height 5 ft 1 in Weight 221 lb 9.033 oz BMI 41.9 BP 102/70 Blood Pressure Location Lt brachial Position Sitting Pulse 95 Pulse Source Pulse Oximeter Pulse Oximetry (%) 99 Oxygen Delivery Method Room Air Intake Visit Reasons: COPD Intake Note: pt is here for follow up and states the morning are the worse, using oxygen prn, walking 2x a day, arm exercises. She is questioning whether she has a hernia on right side. Brush And Broom Clipper Required: No Allergies lansoprazole (Prevacid) Allergy (Severe, Verified 04/03/25 10:10) anaphylaxis cyclobenzaprine (From Flexeril) Adverse Reaction (Intermediate, Verified 04/03/25 10:10) Rash REPLACED BY [facility] Medical History COPD (chronic obstructive pulmonary disease) Respiratory failure with hypoxia and hypercapnia Pulmonary edema Resides in custodial facility Heart failure with preserved ejection fraction Substance abuse Acute exacerbation of chronic obstructive pulmonary disease Lumbar spondylosis Trochanteric bursitis of right hip Obesity Nicotine dependence, cigarettes, uncomplicated History of sepsis Urinary frequency COPD (chronic obstructive pulmonary disease) Exercise hypoxemia Smoker Bilateral hip pain Dyslipidemia Lower back pain Anxiety associated with depression Somatic dysfunction of left sacroiliac joint Surgical History History of total right hip replacement (05/02/24) History of section Family History Father Substance use disorder Mother Substance use disorder Mental health disorder Maternal Grandmother Substance use disorder Mental health disorder Social History Household Members: Spouse Housing: House Housing Other:: currently @ [facility] for rehab Are you a primary palliative care coordinator to a significant other at home: No Do you presently have visiting nurse or other home services: No Alcohol intake: former Patient Tobacco Use Status: Former Tobacco user Tobacco use type: Cigarette Cigarette Packs Per Day: 0.5 Cigarettes Per Day: 2 Years Smoked: 30 e-Cigarette/Vaping Use: Never Used Second Hand Smoke Exposure: No Substance Use Type: Crack/Cocaine service: No Current occupational status: employed Current occupation: [employer] Cognitive needs: No Hearing needs: No Vision needs: No Coding
--- NOTE | 2025-04-03 10:05 | MHC.OFFVIS ---
Vital Signs 04/03/25 10:06 Height 5 ft 1 in Weight 221 lb 9.033 oz BMI 41.9 BP 102/70 Blood Pressure Location Lt brachial Position Sitting Pulse 95 Pulse Source Pulse Oximeter Pulse Oximetry (%) 99 Oxygen Delivery Method Room Air Intake Visit Reasons: COPD Allergies lansoprazole (Prevacid) Allergy (Severe, Verified 04/03/25 10:10) anaphylaxis cyclobenzaprine (From Flexeril) Adverse Reaction (Intermediate, Verified 04/03/25 10:10) Rash Medication List - Last Reconciled 04/03/25 by Ramon Avila MD acetaminophen 650 mg (2 x 325 mg) PO Q6H PRN 30 days acetazolamide 250 mg PO DAILY 90 days albuterol sulfate 90 mcg/actuation (Ventolin HFA) 2 puffs inhalation Q6H PRN baclofen 10 mg PO BID PRN budesonide 0.5 mg (2 mL) inhalation BID 30 days celecoxib 200 mg PO BID clonidine HCl 0.1 mg PO TID 90 days dapagliflozin propanediol (Farxiga) 10 mg PO DAILY fluticasone propionate 50 mcg/actuation 1 spray intranasal Q12H PRN furosemide 40 mg See Protocol PO DAILY 30 days gabapentin 800 mg PO .4 times a day PRN ipratropium-albuterol 0.5 mg-3 mg(2.5 mg base)/3 mL 3 mL inhalation Q4-6H PRN 30 days nicotine (polacrilex) 4 mg buccal Q2H PRN prednisone 5 mg PO Q OTHER DAY trazodone 50 mg PO BEDTIME PRN varenicline tartrate (Chantix) 1 mg PO BID venlafaxine ER 150 mg PO BID walker Folding Front wheeled walker duration 99 days Do you need a note to return to daycare/school/sports/work: No HPI HPI COPD: 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 Smoking is down to 2 cigarettes a day, and beyond that she can not cut it down anymore. Breathing status is remaining stable, she does light duty house work, but still does not go outdoors much. Has put on some weight, partly because she is on prednisone 5 mg on alternate days. Cough is minimal.. And she has no attacks of wheezing. These days she is not using oxygen, except if she gets short of breath in the house. She is supposed to use 2 L/minute at night but she is not using. It all the times Luckily she has had no acute. Respiratory infection She does use her medications and nebulized treatment as prescribed. As she is totally retired and mostly at home she has developed clinical depression. She is on Effexor 150 mg daily. [facility] Medical History COPD (chronic obstructive pulmonary disease) Respiratory failure with hypoxia and hypercapnia Pulmonary edema Resides in nursing home facility Heart failure with preserved ejection fraction Substance abuse Acute exacerbation of chronic obstructive pulmonary disease Lumbar spondylosis Trochanteric bursitis of right hip Obesity Nicotine dependence, cigarettes, uncomplicated History of sepsis Urinary frequency COPD (chronic obstructive pulmonary disease) Exercise hypoxemia Smoker Bilateral hip pain Dyslipidemia Lower back pain Anxiety associated with depression Somatic dysfunction of left sacroiliac joint Surgical History History of total right hip replacement (05/02/24) History of section Family History Father Substance use disorder Mother Substance use disorder Mental health disorder Maternal Grandmother Substance use disorder Mental health disorder Social History Household Members: Spouse Housing: House Housing Other:: currently @ [facility] for rehab Are you a primary care attendant to a significant other at home: No Do you presently have visiting nurse or other home services: No Alcohol intake: former Patient Tobacco Use Status: Former Tobacco user Tobacco use type: Cigarette Cigarette Packs Per Day: 0.5 Cigarettes Per Day: 2 Years Smoked: 30 e-Cigarette/Vaping Use: Never Used Second Hand Smoke Exposure: No Substance Use Type: Crack/Cocaine service: No Current occupational status: employed Current occupation: [employer] Cognitive needs: No Hearing needs: No Vision needs: No Review of Systems Const All systems reviewed & are unremarkable except as noted in HPI and below Eyes Reports no additional complaints ENT Reports no additional complaints Card Denies chest pain, Denies irregular heart rhythm and Reports dyspnea on exertion Resp Reports as per HPI, Reports dyspnea on exertion and Denies wheezing GI Reports no additional complaints Reports no additional complaints Musc Reports back pain, Reports myalgias and Reports arthralgias (Painful right hip and has difficulty in standing and walking) Skin/Breast Reports system reviewed and no additional complaints, except as documented Neuro Reports no additional complaints Psych Reports anxiety Endo Reports no additional complaints Aller/Immun Denies wheezing Physical Exam Const General: comfortable, no acute distress, alert and awake Orientation/consciousness: patient oriented x3 HEENT Head: Yes normal to inspection General nose exam: No nasal polyps present and No nasal discharge present Face and sinus: Yes sinuses nontender Mouth: oropharynx normal (MUCOSA IS DRY AND SLIGHTLY REDDISH, NO EXUDATES) Throat: Yes posterior oropharynx normal Eyes General: appearance normal, both eyes and all related structures Neck Neck: Yes normal visual inspection, Yes no lymphadenopathy, Yes trachea midline and Yes no JVD Thyroid: Thyroid normal Chest Chest palpation & inspection: normal inspection of the chest, normal palpation of entire chest wall and no tenderness Resp Other: PERCUSSION NOTE IS RESONANT, BREATH SOUNDS ARE DISTANT BUT EQUAL ON BOTH SIDES. NO WHEEZES RHONCHI OR CREPITATIONS ARE HEARD . Cardio Palpation: normal PMI Rate: regular rate Rhythm: regular rhythm Heart sounds: no gallops and no murmurs Peripheral pulses: Peripheral pulses 2+ throughout GI Palpation (GI): Soft to palpation, nontender, No hepatosplenomegaly present and no masses Auscultation: normal bowel sounds Back/Spine/Pelvis Thoracic/Lumbar Spine: thoracic and lumbar spine normal to inspection Skin General skin exam: no rashes or lesions noted Neuro General: patient oriented x3 and no focal motor deficits Cranial nerves: Yes CN's II-XII intact bilaterally Extrem General: No normal to inspection (Patient is in wheelchair and not able to stand or walk due to severe pain. ), Yes no clubbing, cyanosis or edema and Yes no calf tenderness Psych Appearance: grossly normal and well kempt Speech and movement: Normal speech and movement present Assessment & Plan Assessment & Plan (1) COPD (chronic obstructive pulmonary disease): Comment: THIS PATIENT IS A KNOWN CASE OF ADVANCED CHRONIC OBSTRUCTIVE PULMONARY DISEASE. DEFINITELY RELATED TO HER LIFELONG SMOKING. AT HOME JUST USING O2 2 L/MINUTE AT NIGHT AND PRN DURING THE DAYTIME. RESPIRATORY STATUS SEEMS TO BE STABLE . SHE IS SLIGHTLY DEPRESSED TODAY BECAUSE HER IS AT IN THE HOSPITAL AT THIS TIME. SHE HAS PUT ON SOME WEIGHT, THIS IS BECAUSE SHE IS FULLY RETIRED, AND PARTLY DUE TO PREDNISONE. Code(s): J44.9 - Chronic obstructive pulmonary disease, unspecified Category: Medical Plan: ADVISED TO CONTINUE THE PRESENT REGIMEN, BUT WILL DC PREDNISONE. ( 5 MG TWICE A WEEK FOR 3-4 WEEKS THEN STOP) (2) Respiratory failure with hypoxia and hypercapnia: Comment: IN ADDITION TO NOCTURNAL AND EXERCISE INDUCED HYPOXEMIA , SHE DOES HAVE HYPERCAPNIA C/W CHRONIC RESPIRATORY FAILURE. CLINICALLY IT HAS IMPROVED AND SEEMS TO BE STABLE AT PRESENT PER VENOUS BLOOD GAS STUDY ON HER LAST VISIT, PCO2 LEVEL HIS ALMOST CLOSE TO NORMAL. SHE CONTINUES TO TAKE ACETAZOLAMIDE 250 MG DAILY, AND DOES DO THE DEEP BREATHING EXERCISES BUT NOT ENOUGH. SHE IS NOT KEEN TO JOIN THE PULMONARY REHAB PROGRAM, BUT SAY IS THAT SHE IS DOING ALL THE EXERCISES SHE WILL BE DOING IN THE PULMONARY REHAB PROGRAM. Code(s): J96.91 - Respiratory failure, unspecified with hypoxia; J96.92 - Respiratory failure, unspecified with hypercapnia Category: Medical Plan: HAD A LONG TALK WITH HER AND THE, MAIN POINT I STRESSED WAS THAT SHE NEEDS TO DO DEEP BREATHING EXERCISES WITH PURSED LIP TECHNIQUE ALMOST EVERY HOUR WHEN AWAKE. (3) Nicotine dependence, cigarettes, uncomplicated: Comment: (Current smoker - onset 23yo, 1ppd x 34yrs, 30pyh) STILL SMOKING 2 CIGARETTES A DAY, SHE IS NOW ON CHANTIX 1 MG B.I.D., AND DOES NOT WANT TO TALK TOO MUCH ABOUT SMOKING. Code(s): F17.210 - Nicotine dependence, cigarettes, uncomplicated Category: Medical Plan: COMMENDED FOR HAVING CUT DOWN SMOKING TO 2 CIGARETTES A DAY AND ENCOURAGED TO QUIT COMPLETELY. Medications: Changed From gabapentin 800 mg PO .4 times a day 120 tabs 3RF 30 days To gabapentin 800 mg PO .4 times a day PRN Coding Level of Care Code Est Pt Level 4 (80373) Diagnoses COPD (chronic obstructive pulmonary disease) J44.9 Respiratory failure with hypoxia and hypercapnia J96.91; J96.92 Nicotine dependence, cigarettes, uncomplicated F17.210
[2025-04-03 10:06] VITALS: BP 102/70; PULSE 95; O2SAT 99; BMI 41.9
--- OUTSIDE RECORDS SUMMARY | 2025-04-03 10:51 | XMS_ITS | Clinical Summary ---
Author Organization [facility] Address [address] [place] [address] Care Team Providers Care Computer Network Specialist Name Role Phone Gustavo Dias MD Primary Care Provider [phone] Allergies Active Allergy Reactions Criticality Noted Date [...] DTaP,Tdap,and Td Vaccines (1 - Tdap) 08/16/1987 Mammogram 2005 Pneumococcal Vaccine: 50+ Years (1 of 1 - PCV) 016 Zoster Vaccines (1 of 2) 08/16/2015 Alcohol/Substance Use Screening 04/12/2024 Influenza Vaccine (#1) 2024 Insurance [employer] Advance Directives Documents on File Type Date Recorded Patient Air Quality Technician Expl anation MOLST/POLST 03/03/2024 6:25 AM 4 Care Teams Computer Network Specialist Relationship Specialty Start Date End Date Gustavo Dias MD PCP - General Internal Medicine 03/01/24
== END 2025-04-03 10:32 | disposition home or self-care (01) ==
LOC: HO.HPS 09:57
PROVIDERS: PCP Internal Medicine; Visit Provider Internal Medicine
DX: J44.9 Chronic obstructive pulmonary disease, unspecified (principal); J96.91 Respiratory failure, unspecified with hypoxia; J96.92 Respiratory failure, unspecified with hypercapnia; F17.210 Nicotine dependence, cigarettes, uncomplicated
CPT/HCPCS: 99214

== ENCOUNTER → 2025-04-03 09:56 | Outpatient (BNVA) | payer OTHER, SELFPAY | PROVIDERS: PCP Internal Medicine; Visit Provider Internal Medicine | DX: J44.9 Chronic obstructive pulmonary disease, unspecified (principal); F17.210 Nicotine dependence, cigarettes, uncomplicated; J96.11 Chronic respiratory failure with hypoxia; J96.12 Chronic respiratory failure with hypercapnia; F32.A Depression, unspecified; Z79.899 Other long term (current) drug therapy | CPT/HCPCS: 99212 ==

== ENCOUNTER 2025-04-10 08:25 | Outpatient (AMB) | payer OTHER, SELFPAY ==
[2025-04-10 08:26] VITALS: BP 104/68; PULSE 103; RESP 16; O2SAT 96; BMI 42.5
--- NOTE | 2025-04-10 08:26 | A.OFFPC_ITS ---
Vital Signs 04/10/25 08:26 Height 5 ft 1 in Weight 224 lb 13.944 oz BMI 42.5 BP 104/68 Blood Pressure Location Rt brachial Position Sitting Respiration 16 Pulse 103 H Pulse Source Pulse Oximeter Pulse Oximetry (%) 96 Oxygen Delivery Method Room Air Intake Visit Reasons: 4m follow up Sock And Stocking Ironer Required: No Accompanied by: Self / Same As Patient Allergies lansoprazole (Prevacid) Allergy (Severe, Verified 04/10/25 08:58) anaphylaxis cyclobenzaprine (From Flexeril) Adverse Reaction (Intermediate, Verified 04/10/25 08:58) Rash Medication List - Last Reconciled 04/10/25 by Ezra Zuñiga, RADIOLOGY ASST- acetaminophen 650 mg (2 x 325 mg) PO Q6H PRN 30 days acetazolamide 250 mg PO DAILY 90 days albuterol sulfate 90 mcg/actuation (Ventolin HFA) 2 puffs inhalation Q6H PRN baclofen 10 mg PO BID PRN budesonide 0.5 mg (2 mL) inhalation BID 30 days celecoxib 200 mg PO BID clonidine HCl 0.1 mg PO TID 90 days dapagliflozin propanediol (Farxiga) 10 mg PO DAILY fluticasone propionate 50 mcg/actuation 1 spray intranasal Q12H PRN furosemide 40 mg See Protocol PO DAILY 30 days gabapentin 800 mg PO .4 times a day PRN ipratropium-albuterol 0.5 mg-3 mg(2.5 mg base)/3 mL 3 mL inhalation Q4-6H PRN 30 days nicotine (polacrilex) 4 mg buccal Q2H PRN prednisone 5 mg PO Q OTHER DAY trazodone 50 mg PO BEDTIME PRN varenicline tartrate (Chantix) 1 mg PO BID venlafaxine ER 150 mg PO BID walker Folding Front wheeled walker duration 99 days Tobacco use date assessed: 04/10/25 Dental Screening Dental Screen Date: 04/10/25 Did you have a dental visit in the last 12 months?: Yes Did you have a dental problem in the last 6 months where you did not have access to dental care?: No Was dental information given to patient?: Patient has dentist HPI 4m follow up HPI Details Chief Complaint The patient presents for follow-up regarding her right total hip replacement. History of Present Illness The patient is a 59 year old female presenting for follow-up on her right total hip arthroplasty. She underwent the procedure in April 2024 and subsequently experienced multiple dislocations. A revision of the hip was discussed, but she has declined to proceed with another surgery. She reports some popping and pain that radiates to her right buttock and right upper lumbar region but notes there have been no recent dislocations. She is actively trying to strengthen the area and walks with her dog on a daily basis. The patient has a history of COPD, for which she is followed by a ratoprinter, and also reports some depression. She declined a flu vaccination today. Social History - Exercise: The patient walks on a daily basis with her dog. Health Maintenance The patient declined the influenza vaccination during this visit. Review of Systems - Musculoskeletal: Reports some popping and pain in the right hip, which radiates to the right buttock and right upper lumbar region. - Psychiatric: Reports feeling a little bit of depression. Denies suicidal or homicidal ideation. - Cardiovascular: Denies chest pain. - Respiratory: Denies increased shortnes s of breath. Physical Exam General: Cooperative, healthy appearing, comfortable, no acute distress and well developed Orientation: Patient oriented x3 Limitations: No limitations Head: Normal to inspection Ears: Hearing grossly normal bilaterally Nose: Normal external nose present Face and sinus: Normal facial exam Eyes: Appearance normal, both eyes and all related structures Neck: Normal visual inspection and Yes full ROM Respiratory: Normal respiratory effort and able to speak in complete sentences. Clear to auscultation bilaterally Cardiovascular: Regular rate and rhythm. Normal S1 and S2 GI: Normal to inspection. Soft to palpation and nontender Skin: No rashes or lesions noted Neuro: Patient oriented x3 Extremities: Normal to inspection Results Plan 1. Recurrent Dislocation Of Right Hip Pr osthesis The patient has a history of multiple dislocations following her right total hip arthroplasty. She has declined a recommended revision surgery and will continue with her efforts to strengthen the area, including daily walking. We will continue to monitor her condition. 2. Depression The patient reports having some depression and denies any suicidal or homicidal ideation. A referral will be made to behavioral health staff for a therapy evalu ation. 3. Chronic Obstructive Pulmonary Disease The patient has a history of COPD and is followed by a ratoprinter. She is stable and denies any increase in shortness of breath. Discussion Notes I have reviewed the patient's history of recurrent dislocations of her right total hip arthroplasty. We discussed that a revision was previously recommended, but she continues to decline this option. We also addressed her report of some depression, and I will arrange for our behavioral health staff to speak with her about therapy, after confirming she has no suicidal or homicidal ideation. I noted her decision to decline the flu vaccination today. Patient Instructions - Continue with your daily walks with yo ur dog to help strengthen your right hip. - Our office will refer you to our [facility] health staff, who will reach out to you to discuss options for therapy. - Please contact us or seek care if you experience any further hip dislocations, worsening pain, chest pain, or increased shortness of breath. [facility] Medical History COPD (chronic obstructive pulmonary disease) Respiratory failure with hypoxia and hypercapnia Pulmonary edema Resides in halfway facility Heart failure with preserved ejection fraction Substance abuse Acute exacerbation of chronic obstructive pulmonary disease Lumbar spondylosis Trochanteric bursitis of right hip Obesity Nicotine dependence, cigarettes, uncomplicated History of sepsis Urinary frequency COPD (chronic obstructive pulmonary disease) Exercise hypoxemia Smoker Bilateral hip pain Dyslipidemia Lower back pain Anxiety associated with depression Somatic dysfunction of left sacroiliac joint Surgical History History of total right hip replacement (05/02/24) History of section Family History Father Substance use disorder Mother Substance use disorder Mental health disorder Maternal Grandmother Substance use disorder Mental health disorder Social History Household Members: Spouse Housing: House Housing Other:: currently @ [facility] for rehab Are you a primary childcare attendant to a significant other at home: No Do you presently have visiting nurse or other home services: No Unable to assess alcohol history related to: Unable to respond Alcohol intake: former Patient Tobacco Use Status: Former Tobacco user Tobacco use type: Cigarette Cigarette Packs Per Day: 0.5 Cigarettes Per Day: 2 Years Smoked: 30 Packs Per Year: 15 Packs per year/per ci.00 e-Cigarette/Vaping Use: Never Used Second Hand Smoke Exposure: No Substance Use Type: Crack/Cocaine service: No Current occupational status: employed Current occupation: [employer] Cognitive needs: No Hearing needs: No Vision needs: No Questionnaire PHQ-9 Over the last 2 weeks, how often have you been bothered by any of the following problems? 1. Little interest or pleasure in doing things: not at all 2. Feeling down, depressed, or hopeless: not at all 3. Trouble falling or staying asleep, or sleeping too much: not at all 4. Feeling tired or having little energy: not at all 5. Poor appetite or overeating: not at all 6. Feeling bad about yourself - or that you are a failure or have let yourself or your family down: not at all 7. Trouble concentrating on things, such as reading the newspaper or watching television: not at all 8. Moving or speaking so slowly that other people could have noticed. Or the opposite - being so fidgety or restless that you have been moving around a lot more than usual: not at all 9. Thoughts that you would be better off or of hurting yourself in some way: not at all Total score: 0 Depression Screening Interpretation: Negative Depression Screening Done: Yes 38433 - PHQ-9 Billing: Yes Source: Developed by Drs. Neel Lazaro, Marilee Stanley, Antonio Rodriguez and colleagues, with an educational willie from [employer]. Thrive Questionnaire Date Thrive assessed: 06/26/24 DAI-7 AMB Questionnaire DAI-7 Date DAI - 7 assessed: 04/10/25 Feeling nervous, anxious, or on edge: 0 = Not at all Not being able to stop or control worryin = Not at all Worrying too much about different things: 0 = Not at all Trouble relaxin = Not at all Being so restless that it is hard to sit still: 0 = Not at all Becoming easily annoyed or irritable: 0 = Not at all Feeling afraid as if something awful might happen: 0 = Not at all Total DAI-7 score (0-4 normal; 5-9 mild; 10-14 moderate; 15-21 severe): 0 Source: Developed by Drs. Neel Lazaro, Antonio Thomas and colleagues, with an educational willie from [employer] DAI-7 Assessment Billing DAI-7 Assessment Tool: DAI-7 Assessment 46438 Physical exam (Primary Care) Vital Signs: Last Vital Signs Pulse 103 H 04/10/25 08:26 Resp 16 04/10/25 08:26 BP 104/68 04/10/25 08:26 Pulse Ox 96 04/10/25 08:26 Oxygen Delivery Method Room Air 04/10/25 08:26 BMI result Body Mass Index 42.5 Tobacco/Smoking Status: Tobacco use Status Tobacco use date assessed 04/10/25 04/10/25 08:37 Patient Tobacco Use Status Former Tobacco user 04/10/25 08:37 Tobacco use type Cigarette 04/10/25 08:37 e-Cigarette/Vaping Use Never Used 04/10/25 08:37 PHQ-9: PHQ-9 Score PHQ-9: Total score 0 04/10/25 08:37 Depression Screening Interpretation: Negative Thrive Assessment: Date of Thrive Assessment Date Thrive assessed 06/26/24 04/10/25 08:37 Coding Level of Care Code Est Pt Level 3 (34960) Diagnoses Class 3 severe obesity due to excess calories with body mass index (BMI) of 40.0 to 44.9 in adult, unspecified whether serious comorbidity present E66.813; E66.01; Z68.41 Obesity type: due to excess calories Obesity classification: adult class 3 (BMI >= 40) Serious obesity comorbidity presence: unspecified whether serious comorbidity present Body mass index: BMI 40.0-44.9 Dislocation of prosthesis of right hip joint T84.020A COPD (chronic obstructive pulmonary disease) J44.9 Additional Codes DAI-7 Assessment Billing - DAI-7 Assessment Tool: DAI-7 Assessment 06041 ([id number]) PHQ-9 - 35286 - PHQ-9 Billing: Yes ([id number]) Assessment & Plan Assessment & Plan (1) Obesity: Code(s): E66.9 - Obesity, unspecified Category: Medical Qualifiers: Obesity type: due to excess calories Obesity classification: adult class 3 (BMI >= 40) Serious obesity comorbidity presence: unspecified whether serious comorbidity present Body mass index: BMI 40.0-44.9 Qualified C ode(s): E66.813 - Obesity, class 3; E66.01 - Morbid (severe) obesity due to excess calories; Z68.41 - Body mass index [BMI] 40.0-44.9, adult (2) Dislocation of prosthesis of right hip joint: Code(s): T84.020A - Dislocation of internal right hip prosthesis, initial encounter Category: Medical (3) COPD (chronic obstructive pulmonary disease): Code(s): J44.9 - Chronic obstructive pulmonary disease, unspecified Category: Medical Plan .
--- OUTSIDE RECORDS SUMMARY | 2025-04-10 10:00 | XMS_ITS | Clinical Summary ---
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
== END 2025-04-10 09:17 | disposition home or self-care (01) ==
PROVIDERS: PCP Internal Medicine; Visit Provider Nurse Practitioner Family
DX: E66.01 Morbid (severe) obesity due to excess calories (principal); Z68.41 Body mass index [BMI] 40.0-44.9, adult; J44.9 Chronic obstructive pulmonary disease, unspecified; T84.020A Dislocation of internal right hip prosthesis, initial encounter

== ENCOUNTER → 2025-04-10 08:25 | Outpatient (BNVA) | payer OTHER, SELFPAY | PROVIDERS: PCP Internal Medicine; Visit Provider Nurse Practitioner Family | DX: E66.813 Obesity, class 3 (principal); E66.01 Morbid (severe) obesity due to excess calories; T84.020D Dislocation of internal right hip prosthesis, subsequent encounter; J44.9 Chronic obstructive pulmonary disease, unspecified; Z68.41 Body mass index [BMI] 40.0-44.9, adult | CPT/HCPCS: 96127; 99212 ==